=== PATIENT | male | born 1945 | race American Indian/Alaskan Native ===

== ENCOUNTER 2017-11-26 16:24 | Inpatient (IN) | payer MEDICARE, MEDICAID ==
--- NOTE | 2017-11-26 17:18 | C.PDOC ---
History Of Present Illness Patient TYLOR from [place] for evaluation of SOB and hypotension, apparently since approx 8am this morning. Patient admits to SOB, but denies chest pain, cough, fever, palpitations. PMHx- asthma/COPD, CHF, HTN, CVA, BPH Time Seen by Provider: 11/26/17 16:40 Chief Complaint (Nursing): Shortness Of Breath History Per: Patient, EMS, Family History/Exam Limitations: clinical condition Onset/Duration Of Symptoms: Days Current Symptoms Are (Timing): Still Present Current Respiratory Medications: See Home Med List Past Medical History Reviewed: Historical Data, Nursing Documentation, Vital Signs Vital Signs: Last Vital Signs Temp 100.6 F H 12/03/17 00:00 Pulse 57 L 12/03/17 02:00 Resp 16 12/03/17 02:00 BP 90/56 L 12/03/17 01:46 Pulse Ox 98 12/03/17 02:00 - Medical History PMH: Arthritis (neck; r shoulder), Asthma, Benign Prostatic Hyperplasia, CHF, COPD, CVA, HTN - [facility] Procedures BONE MARROW OPS NEC (01/07/14) CONTINUOUS INVASIVE MECHANICAL VENTILATION <96 CONSEC HRS (01/07/14) ENTERAL INFUSION OF CONCENTRATED NUT. SUBSTANCES (03/24/14) ESOPHAGOGASTRODUODENOSCOPY [EGD] W/CLOSED BIOPSY (03/24/14) EXCIS DEBRIDE OF WOUND, INFECT, OR BURN (02/17/14) EXCISE BONE FOR GFT NEC (01/07/14) EXCISION OF JOINT NEC (01/07/14) FUSION/REFUS OF 2-3 VERTEBRAE (01/07/14) INSERT ENDOTRACHEAL TUBE (01/07/14) INSERTION OF INTERBODY SPINAL FUSION DEVICE (01/07/14) OTH CERVICAL FUSION OF ANTERIOR COLUMN, ANTERIOR TECHNIQUE (01/07/14) OTH CERVICAL FUSION OF POSTERIOR COLUMN, POSTERIOR TECHNIQUE (01/07/14) PACKED CELL TRANSFUSION (03/24/14) PERCUTANEOUS [ENDOSCOPIC] GASTROSTOMY [PEG] (02/17/14) VENOUS CATHETERIZATION NEC (02/17/14) Family History: States: No Known Family Hx - Social History Hx Tobacco Use: No Hx Alcohol Use: No Hx Substance Use: No - Immunization History Hx Tetanus Toxoid Vaccination: No Hx Influenza Vaccination: No Hx Pneumococcal Vaccination: No Review Of Systems Except As Marked, All Systems Reviewed And Found Negative. Constitutional: Negative for: Fever, Chills Cardiovascular: Negative for: Chest Pain, Palpitations Respiratory: Positive for: Shortness of Breath. Negative for: Cough Gastrointestinal: Negative for: Nausea, Vomiting, Abdominal Pain, Diarrhea Skin: Negative for: Rash Physical Exam - Physical Exam Appears: Well, In Acute Distress (in mild respiratory distress), Chronically Ill Skin: Warm, Dry Eye(s): bilateral: Normal Inspection Oral Mucosa: Moist Cardiovascular: Rhythm Regular Respiratory: Accessory Muscle Use (mild), Rales (B/L bases), Rhonchi, No Wheezing Gastrointestinal/Abdominal: Normal Exam, Bowel Sounds, Soft, No Tenderness Extremity: Pedal Edema (+2 pitting edema B/L LEs), Other (midline right antecubital area, right posterior calf with approx 6cm chronic wound with mild surrounging erythema, no drainage ) Neurological/Psych: Oriented x3 ED Course And Treatment - Laboratory Results Result Diagrams: 12/02/17 06:32 12/02/17 06:32 ECG: Interpreted By Me, Viewed By Me (NSR 78 bpm, left axis deviation, T wave inversions III, V3-V6, no acute ST changes) ECG Interpretation: Abnormal O2 Sat by Pulse Oximetry: 93 (RA) Pulse Ox Interpretation: Normal - Radiology CXR: Interpreted by Me, Viewed By Me (? left sided infiltrate, pulmonary vascular congestion) Progress Note: Blood work, EKG, CXR, UA ordered and reviewed. CXR shows ? left sided infiltrate, pulmonary vascular congestion. Patient given small IV NS bolus due to mild hypotension. Broad spectrum antibiotics ordered for pneumonia. - Physician Consult Information Physician Contacted: Adrianne Kelsey Outcome Of Conversation: Discussed patient with Dr. Kelsey, agrees with admission for pneumonia, CHF exacerbation, leukocytosis, mild hypotension. Disposition - Disposition Disposition: HOSPITALIZED Disposition Time: 18:39 Condition: STABLE - Clinical Impression Clinical Impression: CHF exacerbation, Pneumonia, Leukocytosis, Mild hypertension Decision To Admit - Pt Status Changed To: Hospital Disposition Of: Inpatient - Admit Certification Admit to Inpatient:: After my assessment, the patient will require hospitalization for at least two midnights. This is because of the severity of symptoms shown, intensity of services needed, and/or the medical risk in this patient being treated as an outpatient. - InPatient: Physician Admission Certification: I certify that this patient requires 2 or more midnights of care for the following reason:: see notes - . Bed Request Type: Telemetry Admitting Physician: Adrianne Kelsey Patient Diagnosis: CHF exacerbation, Pneumonia, Leukocytosis, Mild hypertension
[2017-11-26] MEDS ORDERED: Sodium Chloride 0.9% 500 ML IV ONE ×2 (17:22→17:51)
[2017-11-26 17:36] LABS: BASO % 0.2 % (0.0-2.0); HEMOGLOBIN 13.6 g/dL (12.0-18.0); LYMPH # 0.7 K/uL (1.0-4.3); MEAN CELL VOLUME 85.9 fL (80.0-94.0); MEAN CORPUSCULAR HGB CONC 33.8 g/dL (33.0-37.0); MEAN PLATELET VOLUME 8.7 fL (7.2-11.7); MONO # 2.3 K/uL (0.0-0.8); NEUT # 19.6 K/uL (1.8-7.0); NEUT % 86.8 % (50.0-75.0); NRBC % 0.1 % (0.0-2.0); PLATELET COUNT 142 K/uL (130-400); RBC 4.67 Mil/uL (4.40-5.90); RED CELL DISTRIBUTION WIDTH 16.5 % (11.5-14.5); WHITE BLOOD COUNT 22.6 K/uL (4.8-10.8)
[2017-11-26] MEDS ORDERED: Sodium Chloride 0.9% 500 ML IV STA (17:41)
[2017-11-26 17:44] LABS: INR 1.5; PROTHROMBIN TIME 16.6 SECONDS (9.7-12.2)
[2017-11-26 17:50] LABS: ALB/GLOB RATIO 0.8 (1.0-2.1); ALBUMIN 3.4 g/dL (3.5-5.0); ALT/SGPT 15 U/L (21-72); AST/SGOT 27 U/L (17-59); BLOOD UREA NITROGEN 32 mg/dL (9-20); CALCIUM 8.5 mg/dl (8.6-10.4); GFR AFRICAN-AMERICAN > 60; GFR NON-AFRICAN AMERICAN 50
[2017-11-26] MEDS ORDERED: Cefepime 1 GM in Sodium Chloride 0.9% 50 ML IVPB STA (17:54)
[2017-11-26] MEDS ORDERED: Vancomycin 1 GM 1 GM/250 ML BAG IV STA (17:54)
[2017-11-26] MEDS ORDERED: Moxifloxacin IV 400mg/250ml NS 400 MG/250 ML BAG IV STA (17:55)
[2017-11-26 18:03] LABS: B-TYPE NATRIURETIC PEPTIDE 2090 pg/mL (0-900)
[2017-11-26 18:45] LABS: SQUAMOUS EPITHIAL < 1 /hpf (0-5); URINE AMORPHOUS SEDIMENT RARE /ul (<OCC); URINE BACTERIA RARE (<OCC); URINE BILIRUBIN NEGATIVE (NEGATIVE); URINE BLOOD 1+ (NEGATIVE); URINE CLARITY Hazy (Clear); URINE COLOR Yellow (YELLOW); URINE GLUCOSE (UA) NORMAL (Normal); URINE LEUKOCYTE ESTERASE NEG Leu/uL (Negative); URINE NITRATE NEGATIVE (NEGATIVE); URINE PROTEIN 1+ mg/dL (NEGATIVE)
[2017-11-26 18:59] LABS: ARTERIAL BLOOD GAS HCO3 23.6 mmol/L (21-28); ARTERIAL BLOOD GAS O2 SAT 97.4 % (95-98); ARTERIAL BLOOD GAS PCO2 61 mm/Hg (35-45); ARTERIAL BLOOD GAS PH 7.25 (7.35-7.45); ARTERIAL BLOOD GAS PO2 95 mm/Hg (80-100); ARTERIAL BLOOD GAS TCO2 28.7 mmol/L (22-28)
[2017-11-26] MEDS ORDERED: Vancomycin 1 gm/NS 200 ml 1 GM/200 ML BAG IVPB ONE (19:00)
[2017-11-26 19:04] LABS: BANDS 2 % (0-2); EOSINOPHIL 1 % (0-4); LYMPHOCYTE 2 % (20-40); MONOCYTE 6 % (0-10); NEUTROPHIL 89 % (50-75); TOTAL CELLS COUNTED 100
[2017-11-26 19:05] LABS: ANISOCYTOSIS SLIGHT; PLATELET CLUMPS PRESENT; PLATELET ESTIMATE NORMAL (NORMAL)
[2017-11-26] MEDS ORDERED: Cefepime IV 1 gm in Dextrose 1 GM/50 ML BAG IVPB ONE (20:00)
[2017-11-26] MEDS: Simethicone 80 mg Chewtab PO SCH (22:32)
[2017-11-27] MEDS: Simethicone 80 mg Chewtab PO SCH ×4 (03:41→22:42)
[2017-11-27] MEDS: Meropenem 500 MG in Sodium Chloride 0.9% 100 ML IVPB SCH ×3 (05:58→21:41)
--- NOTE | 2017-11-27 06:32 | RAD ---
Chest x-ray single frontal view History: Shortness of breath. Comparison: 02/19/2014 Findings: Moderate venous congestion. Moderate bibasilar airspace opacities. Small bilateral pleural effusions. More consolidative changes in the left hilar region and right infrahilar region. Right paratracheal airspace opacity. Tortuous ectatic aorta. Mild cardiomegaly. Degenerative changes in the spine and shoulders. Postsurgical changes in the cervical spine. Impression: Moderate venous congestion. Moderate bibasilar airspace opacities. Small bilateral pleural effusions. More consolidative changes in the left hilar region and right infrahilar region. Right paratracheal airspace opacity. Tortuous ectatic aorta. Mild cardiomegaly.
--- NOTE | 2017-11-27 06:51 | RAD ---
Abdomen two views History: Constipation. Comparison: 03/31/2014 Findings: Multiple dilated loops of small bowel seen throughout the abdomen and pelvis. Some air seen within the left hemicolon. Prominent degenerative changes in the spine and hips. Impression: Multiple dilated loops of small bowel seen throughout the abdomen and pelvis which may represent a partial or developing bowel obstruction. Clinical correlation.
[2017-11-27] MEDS ORDERED: Home Med 1 UNIT (Linaclotide [Linzess] 145 MCG) PO SCH (10:00)
[2017-11-27] MEDS ORDERED: PROTEIN SUPPLEMENT PO SCH (10:00)
[2017-11-27] MEDS ORDERED: LINZESS 145MG PO SCH (10:00)
[2017-11-27] MEDS: Enoxaparin 40 mg Syringe SC SCH (10:33)
[2017-11-27] MEDS: Magnesium Hydroxide Susp 30 ml UD PO SCH (10:35)
[2017-11-27 14:32] LABS: BASO % 0.1 % (0.0-2.0); HEMOGLOBIN 12.9 g/dL (12.0-18.0); LYMPH # 0.9 K/uL (1.0-4.3); LYMPH % 5.9 % (20.0-40.0); MEAN CELL VOLUME 86.9 fL (80.0-94.0); MEAN CORPUSCULAR HEMOGLOBIN 28.8 pg (27.0-31.0); MEAN CORPUSCULAR HGB CONC 33.2 g/dL (33.0-37.0); MEAN PLATELET VOLUME 9.4 fL (7.2-11.7); MONO # 1.4 K/uL (0.0-0.8); MONO % 8.9 % (0.0-10.0); NEUT # 13.5 K/uL (1.8-7.0); NEUT % 85.1 % (50.0-75.0); PLATELET COUNT 134 K/uL (130-400); RBC 4.47 Mil/uL (4.40-5.90); RED CELL DISTRIBUTION WIDTH 16.6 % (11.5-14.5); WHITE BLOOD COUNT 15.9 K/uL (4.8-10.8)
[2017-11-27 14:49] LABS: ALB/GLOB RATIO 0.8 (1.0-2.1); ALBUMIN 3.1 g/dL (3.5-5.0); CALCIUM 7.8 mg/dl (8.6-10.4)
[2017-11-27 15:08] LABS: BANDS 1 % (0-2); LYMPHOCYTE 6 % (20-40); MONOCYTE 8 % (0-10); NEUTROPHIL 85 % (50-75); PLATELET ESTIMATE NORMAL (NORMAL); TOTAL CELLS COUNTED 100
[2017-11-27 15:09] LABS: ANISOCYTOSIS SLIGHT; HYPOCHROMIC SLIGHT; POLYCHROMIC SLIGHT
[2017-11-27 15:10] LABS: LARGE PLATELETS PRESENT
[2017-11-27] MEDS: Vancomycin 1 gm/NS 200 ml 1 GM/200 ML BAG IVPB SCH (22:43)
[2017-11-28] MEDS: Simethicone 80 mg Chewtab PO SCH ×4 (03:25→22:19)
[2017-11-28] MEDS: Meropenem 500 MG in Sodium Chloride 0.9% 100 ML IVPB SCH ×3 (05:12→21:12)
[2017-11-28] MEDS: Enoxaparin 40 mg Syringe SC SCH (10:16)
[2017-11-28] MEDS: Magnesium Hydroxide Susp 30 ml UD PO SCH (10:36)
--- NOTE | 2017-11-28 16:31 | CP.PCM.CON ---
History of Present Illness - History of Present Illness History of Present Illness: Patient T[place] from [place] for evaluation of SOB and hypotension, apparently since approx 8am this morning. Patient admits to SOB, but denies chest pain, cough, fever, palpitations. admitted with resp failure sepsis and pneumonia awake alert aphasic bedridden sice stroke Hx multiple wounds IV rx in progress - Medical History PMH: Arthritis (neck; r shoulder), Asthma, Benign Prostatic Hyperplasia, CHF, COPD, CVA, HTN - [facility] Procedures BONE MARROW OPS NEC (01/07/14) CONTINUOUS INVASIVE MECHANICAL VENTILATION <96 CONSEC HRS (01/07/14) ENTERAL INFUSION OF CONCENTRATED NUT. SUBSTANCES (03/24/14) ESOPHAGOGASTRODUODENOSCOPY [EGD] W/CLOSED BIOPSY (03/24/14) EXCIS DEBRIDE OF WOUND, INFECT, OR BURN (02/17/14) EXCISE BONE FOR GFT NEC (01/07/14) EXCISION OF JOINT NEC (01/07/14) FUSION/REFUS OF 2-3 VERTEBRAE (01/07/14) INSERT ENDOTRACHEAL TUBE (01/07/14) INSERTION OF INTERBODY SPINAL FUSION DEVICE (01/07/14) OTH CERVICAL FUSION OF ANTERIOR COLUMN, ANTERIOR TECHNIQUE (01/07/14) OTH CERVICAL FUSION OF POSTERIOR COLUMN, POSTERIOR TECHNIQUE (01/07/14) PACKED CELL TRANSFUSION (03/24/14) PERCUTANEOUS [ENDOSCOPIC] GASTROSTOMY [PEG] (02/17/14) VENOUS CATHETERIZATION NEC (02/17/14) Family History: States: No Known Family Hx Review of Systems - Review of Systems Systems not reviewed;Unavailable: Altered Mental Status All systems: reviewed and no additional remarkable complaints except - Constitutional Constitutional: As Per HPI - EENT Eyes: absent: As Per HPI, Blind Spots, Blurred Vision, Change in Vision, Decreased Night Vision, Diplopia, Discharge, Dry Eye, Exophthalmos, Floaters, Irritation, Itchy Eyes, Loss of Peripheral Vision, Pain, Photophobia, Requires Corrective Lenses, Sees Flashes, Spots in Vision, Tunnel Vision, Other Visual Disturbances, Loss of Vision, Other Ears: absent: As Per HPI, Decreased Hearing, Ear Discharge, Ear Pain, Tinnitus, Abnormal Hearing, Disequilibrium, Dizziness, Other Nose/Mouth/Throat: absent: As Per HPI, Epistaxis, Nasal Congestion, Nasal Discharge, Nasal Obstruction, Nasal Trauma, Nose Pain, Post Nasal Drip, Sinus Pain, Sinus Pressure, Bleeding Gums, Change in Voice, Dental Pain, Dry Mouth, Dysphagia, Halitosis, Hoarsness, Lip Swelling, Mouth Lesions, Mouth Pain, Odynophagia, Sore Throat, Throat Swelling, Tongue Swelling, Facial Pain, Neck Pain, Neck Mass, Other - Cardiovascular Cardiovascular: As Per HPI - Respiratory Respiratory: As Per HPI - Gastrointestinal Gastrointestinal: absent: As Per HPI, Abdominal Pain, Belching, Bloating, Change in Bowel Habits, Change in Stool Character, Coffee Ground Emesis, Constipation, Cramping, Diarrhea, Dyspepsia, Dysphagia, Early Satiety, Excessive Flatus, Fecal Incontinence, Heartburn, Hematemesis, Hematochezia, Loose Stools, Melena, Nausea, Odynophagia, Temesmus, Vomiting, Other - Genitourinary Genitourinary: absent: As Per HPI, Change in Urinary Stream, Difficulty Urinating, Dysuria, Flank Pain, Hematuria, Pyuria, Nocturia, Urinary Incontinence, Urinary Frequency, Urinary Hesitance, Urinary Urgency, Voiding Freq/Small Amts, Freq UTI, Hx Renal/Bladder Calculi, Hx /Renal Surgery, Bladder Distension, Other - Musculoskeletal Musculoskeletal: As Per HPI - Integumentary Integumentary: As Per HPI, Skin Pain, Wounds - Neurological Neurological: As Per HPI - Psychiatric Psychiatric: absent: As Per HPI, Abnormal Sleep Pattern, Anhedonia, Anxiety, Auditory Hallucinations, Behavioral Changes, Change in Appetite, Change in Libido, Confusion, Depression, Difficulty Concentrating, Hallucinations, Homicidal Ideation, Hopelessness, Irritability, Memory Loss, Mood Swings, Panic Attacks, Paranoia, Suicidal Ideation, Visual Hallucinations, Tactile Hallucinations, Other - Endocrine Endocrine: absent: As Per HPI, Change in Body Appearance, Change in Libido, Cold Intolorance, Deepening of Voice, Excessive Sweating, Fatigue, Flushing, Heat Intolorance, Increase in Ring/Shoe/Hat Size, Palpitations, Polydipsia, Polyphagia, Polyuria, Other Past Patient History - Past Medical History & Family History Past Medical History?: Yes - Past Social History Smoking Status: Former Smoker - CARDIAC Hx Congestive Heart Failure: Yes Hx Hypertension: Yes - PULMONARY Hx Asthma: Yes Hx Chronic Obstructive Pulmonary Disease (COPD): Yes - NEUROLOGICAL HX Cerebrovascular Accident: Yes (left hemiparesis) - HEENT Hx Difficulty Chewing: Yes - RENAL Hx Renal Failure: Yes (renal insufficiency) Other/Comment: urine retention - MUSCULOSKELETAL/RHEUMATOLOGICAL Hx Falls: No - GASTROINTESTINAL Hx Clostridium Difficile: Yes Other/Comment: PEG - GENITOURINARY/GYNECOLOGICAL Hx Incontinence: Yes Hx Prostate Problems: Yes - PSYCHIATRIC Hx Substance Use: No - SURGICAL HISTORY Hx Herniorrhaphy: Yes Other/Comment: Laminectomy - ANESTHESIA Hx Anesthesia: Yes Hx Anesthesia Reactions: No Meds Allergies/Adverse Reactions: Allergies Allergy/AdvReac Type Severity Reaction Status Date / Time aspirin Allergy Verified 11/26/17 17:20 ketorolac [From Toradol] Allergy Verified 11/26/17 17:20 NSAIDS (Non-Steroidal Allergy Verified 11/26/17 17:20 Anti-Inflamma - Medications Medications: Current Medications Enoxaparin Sodium (Lovenox) 40 mg SC DAILY [facility] Last Admin: 11/28/17 10:16 Dose: 40 mg Famotidine (Pepcid) 20 mg PO DAILY [facility] Last Admin: 11/28/17 10:17 Dose: 20 mg Home Med (Patient's Own Medication) 1 tab PO DAILY [facility] Meropenem 500 mg/ Sodium (Chloride) 100 mls @ 100 mls/hr IVPB Q8 [facility] Stop: 11/30/17 06:01 Last Admin: 11/28/17 13:43 Dose: 100 mls/hr Vancomycin/Sodium Chloride (Vancomycin 1 Gm/Ns 200 Ml) 1 gm in 200 mls @ 133 mls/hr IVPB Q24H [facility] Stop: 11/29/17 23:31 Last Admin: 11/27/17 22:43 Dose: 133 mls/hr Magnesium Hydroxide (Milk Of Magnesia) 30 ml PO DAILY [facility] Last Admin: 11/28/17 10:36 Dose: Not Given Metoclopramide HCl (Reglan) 10 mg PO BID [facility] Last Admin: 11/28/17 10:17 Dose: 10 mg Pneumococcal Polyvalent Vaccine (Pneumovax 23 Vaccine) 0.5 ml IM .ONCE ONE Stop: 12/02/17 10:01 Simethicone (Mylicon Chew Tab) 80 mg PO Q6H [facility] Last Admin: 11/28/17 10:00 Dose: 80 mg Tamsulosin HCl (Flomax) 0.4 mg PO DAILY [facility] Last Admin: 11/28/17 10:17 Dose: 0.4 mg Physical Exam - Constitutional Appears: Confused, Chronically Ill - Head Exam Head Exam: ATRAUMATIC, NORMAL INSPECTION, NORMOCEPHALIC - Eye Exam Eye Exam: EOMI, PERRL. absent: Scleral icterus - ENT Exam ENT Exam: Mucous Membranes Dry, Normal External Ear Exam - Neck Exam Neck exam: Negative for: Lymphadenopathy - Respiratory Exam Respiratory Exam: Decreased Breath Sounds, Rhonchi - Cardiovascular Exam Cardiovascular Exam: REGULAR RHYTHM, +S1, +S2 - GI/Abdominal Exam GI & Abdominal Exam: Diminished Bowel Sounds, Distended, Soft. absent: Rebound , Rigid, Tenderness - Rectal Exam Rectal Exam: Deferred - Exam Exam: NORMAL INSPECTION - Extremities Exam Extremities exam: Positive for: pedal pulses present. Negative for: calf tenderness, pedal edema, tenderness - Back Exam Back exam: absent: CVA tenderness (L), CVA tenderness (R), paraspinal tenderness - Neurological Exam Neurological exam: Alert, CN II-XII Intact, Oriented x3, Reflexes Normal - Psychiatric Exam Psychiatric exam: Depressed - Skin Skin Exam: Dry Results - Vital Signs Recent Vital Signs: Last Vital Signs Temp 98.4 F 11/28/17 07:55 Pulse 72 11/28/17 07:55 Resp 20 11/28/17 07:55 BP 95/61 L 11/28/17 07:55 Pulse Ox 95 11/28/17 07:55 - Labs Result Diagrams: 11/27/17 14:14 11/27/17 14:14 Assessment & Plan (1) Acute urinary retention Status: Acute (2) Fever Status: Acute (3) Sepsis associated hypotension Status: Acute - Assessment and Plan (Free Text) Plan: sepsis, pneumonia, resp failure cont iv antibiotics wound care nutritional support
[2017-11-28] MEDS: Vancomycin 1 gm/NS 200 ml 1 GM/200 ML BAG IVPB SCH (22:18)
[2017-11-29] MEDS: Simethicone 80 mg Chewtab PO SCH ×4 (03:12→22:12)
[2017-11-29] MEDS: Meropenem 500 MG in Sodium Chloride 0.9% 100 ML IVPB SCH ×3 (05:14→22:00)
[2017-11-29 07:52] LABS: BASO % 0.1 % (0.0-2.0); HEMOGLOBIN 12.2 g/dL (12.0-18.0); LYMPH % 7.2 % (20.0-40.0); MEAN CELL VOLUME 85.3 fL (80.0-94.0); MEAN CORPUSCULAR HGB CONC 33.9 g/dL (33.0-37.0); MEAN PLATELET VOLUME 8.8 fL (7.2-11.7); MONO # 1.4 K/uL (0.0-0.8); MONO % 10.2 % (0.0-10.0); NEUT # 11.2 K/uL (1.8-7.0); NEUT % 82.5 % (50.0-75.0); PLATELET COUNT 156 K/uL (130-400); RED CELL DISTRIBUTION WIDTH 16.2 % (11.5-14.5); WHITE BLOOD COUNT 13.5 K/uL (4.8-10.8)
[2017-11-29 08:45] LABS: ALB/GLOB RATIO 0.8 (1.0-2.1); ALBUMIN 2.9 g/dL (3.5-5.0); ALT/SGPT 24 U/L (21-72); AST/SGOT 22 U/L (17-59); BLOOD UREA NITROGEN 34 mg/dL (9-20); CALCIUM 7.9 mg/dl (8.6-10.4); GFR AFRICAN-AMERICAN > 60; GFR NON-AFRICAN AMERICAN 54; MAGNESIUM 2.9 mg/dL (1.6-2.3)
--- NOTE | 2017-11-29 09:24 | HP ---
HISTORY OF PRESENT ILLNESS: This is 72-year-old male, now with chief complaint of shortness of breath, feeling weak, fatigue and tiredness. Patient came to the ER, advised admission. Patient has a history of spinal issues. Patient had been in a prison. Came to the ER, evaluated, advised admission. PHYSICAL EXAMINATION: GENERAL: The patient is awake, alert, oriented. VITAL SIGNS: Temperature 99, pulse 90. HEENT: Within normal limits. NECK: Supple. CHEST: Symmetrical. HEART: Regular. ABDOMEN: Soft. EXTREMITIES: No edema. ASSESSMENT: Patient suffers from pneumonia, sepsis. PLAN: Patient given IV antibiotics, supportive care. Adrianne Stanley MD
[2017-11-29] MEDS: Magnesium Hydroxide Susp 30 ml UD PO SCH (09:42)
[2017-11-29] MEDS: Enoxaparin 40 mg Syringe SC SCH (09:42)
[2017-11-29 09:56] LABS: ANISOCYTOSIS SLIGHT; LYMPHOCYTE 4 % (20-40); MONOCYTE 6 % (0-10); NEUTROPHIL 90 % (50-75); PLATELET ESTIMATE NORMAL (NORMAL); TOTAL CELLS COUNTED 100
--- NOTE | 2017-11-29 13:04 | CP.PCM.PN ---
Subjective - Date & Time of Evaluation Date of Evaluation: 11/29/17 Time of Evaluation: 07:00 - Subjective Subjective: awake alert nad on bipap Objective - Vital Signs/Intake and Output Vital Signs (last 24 hours): Temp Pulse Resp BP Pulse Ox 99.0 F 36 L 20 131/84 96 11/29/17 08:30 11/29/17 10:05 11/29/17 08:30 11/29/17 08:30 11/29/17 08:30 Intake and Output: 11/29/17 11/29/17 06:59 18:59 Intake Total 720 Output Total 1200 Balance -480 - Medications Medications: Current Medications Enoxaparin Sodium (Lovenox) 40 mg SC DAILY [facility] Last Admin: 11/29/17 09:42 Dose: 40 mg Famotidine (Pepcid) 20 mg PO DAILY [facility] [place] Last Admin: 11/29/17 09:43 Dose: 20 mg Home Med (Patient's Own Medication) 1 tab PO DAILY [facility] [place] Meropenem 500 mg/ Sodium (Chloride) 100 mls @ 100 mls/hr IVPB Q8 [facility] [place] Stop: 11/30/17 06:01 Last Admin: 11/29/17 05:14 Dose: 100 mls/hr Vancomycin/Sodium Chloride (Vancomycin 1 Gm/Ns 200 Ml) 1 gm in 200 mls @ 133 mls/hr IVPB Q24H [facility] [place] Stop: 11/29/17 23:31 Last Admin: 11/28/17 22:18 Dose: 133 mls/hr Magnesium Hydroxide (Milk Of Magnesia) 30 ml PO DAILY [facility] [place] Last Admin: 11/29/17 09:42 Dose: 30 ml Metoclopramide HCl (Reglan) 10 mg PO BID [facility] [place] Last Admin: 11/29/17 09:43 Dose: 10 mg Pneumococcal Polyvalent Vaccine (Pneumovax 23 Vaccine) 0.5 ml IM .ONCE ONE Stop: 12/02/17 10:01 Simethicone (Mylicon Chew Tab) 80 mg PO Q6H [facility] [place] Last Admin: 11/29/17 09:43 Dose: 80 mg Tamsulosin HCl (Flomax) 0.4 mg PO DAILY [facility] [place] Last Admin: 11/29/17 09:43 Dose: 0.4 mg - Labs Labs: 11/29/17 07:30 11/29/17 07:30 PT 16.6 SECONDS (9.7-12.2) H 11/26/17 17:31 INR 1.5 11/26/17 17:31 APTT 31 SECONDS (21-34) 11/26/17 17:31 - Constitutional Appears: Non-toxic, Confused, Chronically Ill - Head Exam Head Exam: NORMOCEPHALIC - Eye Exam Eye Exam: PERRL. absent: Scleral icterus - ENT Exam ENT Exam: Mucous Membranes Dry - Neck Exam Neck Exam: absent: Lymphadenopathy - Respiratory Exam Respiratory Exam: Decreased Breath Sounds - Cardiovascular Exam Cardiovascular Exam: REGULAR RHYTHM - GI/Abdominal Exam GI & Abdominal Exam: Distended, Soft Assessment and Plan (1) Acute urinary retention Status: Acute (2) Fever Status: Acute (3) Sepsis associated hypotension Status: Acute
--- NOTE | 2017-11-29 14:27 | CP.PCM.PN ---
Subjective - Date & Time of Evaluation Date of Evaluation: 11/29/17 Time of Evaluation: 08:00 - Subjective Subjective: PGY2 medicine note for Dr. Stanley: Patient was seen and examined at bedside this morning. Patient was on BIPAP. He was able to deny pain and stated he was short of breath. He said that he would rather be on NC but per nursing the patient desaturating on NC while trying to eat breakfast. Complete ROS unattainable. Objective - Vital Signs/Intake and Output Vital Signs (last 24 hours): Temp Pulse Resp BP Pulse Ox 99.0 F 36 L 20 131/84 96 11/29/17 08:30 11/29/17 10:05 11/29/17 08:30 11/29/17 08:30 11/29/17 08:30 Intake and Output: 11/29/17 11/29/17 06:59 18:59 Intake Total 720 Output Total 1200 Balance -480 - Medications Medications: Current Medications Enoxaparin Sodium (Lovenox) 40 mg SC DAILY [facility] Last Admin: 11/29/17 09:42 Dose: 40 mg Famotidine (Pepcid) 20 mg PO DAILY [facility] Last Admin: 11/29/17 09:43 Dose: 20 mg Home Med (Patient's Own Medication) 1 tab PO DAILY [facility] Meropenem 500 mg/ Sodium (Chloride) 100 mls @ 100 mls/hr IVPB Q8 [facility] Stop: 11/30/17 06:01 Last Admin: 11/29/17 13:52 Dose: 100 mls/hr Vancomycin/Sodium Chloride (Vancomycin 1 Gm/Ns 200 Ml) 1 gm in 200 mls @ 133 mls/hr IVPB Q24H [facility] Stop: 11/29/17 23:31 Last Admin: 11/28/17 22:18 Dose: 133 mls/hr Magnesium Hydroxide (Milk Of Magnesia) 30 ml PO DAILY [facility] Last Admin: 11/29/17 09:42 Dose: 30 ml Metoclopramide HCl (Reglan) 10 mg PO BID [facility] Last Admin: 11/29/17 09:43 Dose: 10 mg Pneumococcal Polyvalent Vaccine (Pneumovax 23 Vaccine) 0.5 ml IM .ONCE ONE Stop: 12/02/17 10:01 Simethicone (Mylicon Chew Tab) 80 mg PO Q6H [facility] Last Admin: 11/29/17 09:43 Dose: 80 mg Tamsulosin HCl (Flomax) 0.4 mg PO DAILY [facility] Last Admin: 11/29/17 09:43 Dose: 0.4 mg - Labs Labs: 11/29/17 07:30 11/29/17 07:30 PT 16.6 SECONDS (9.7-12.2) H 11/26/17 17:31 INR 1.5 11/26/17 17:31 APTT 31 SECONDS (21-34) 11/26/17 17:31 Assessment and Plan - Assessment and Plan (Free Text) Assessment: Sepsis Afebrile WBC downtrending f/u Chest CT Meropenem 500mg IVPB Q8 Vancomycin 1gram IVPH Q24 hours Dr. Becerril, ID on case - help appreciated Urine cx 11/26 - no growth Blood cx 11/26 - no growth 48 hours Lactate 0.8 on admission Chest X ray - moderate venous congestion. moderate bibasilar airspace opacities. small bilateral pleural effusion. consolidate changes left hilar region and righ infrahilar region. Right paratracheal airspace opacity. mild cardiomegaly EKG - NSR 78 bpm, left axis deviation, T wave inversions III, V3-V6, no acute ST changes) f/u echo f/u legionella, streppneumo, mycoplasma f/u am labs COPD Patient is on bipap for suspected pneumonia Duonebs prn Influenza - negative Hx CVA Patient is allergic to aspirin Chronic extremity wounds Wound care patient is bedridden Arthritis Tylenol prn BPH Flomax 0.4mg PO daily Constipation [id number] SC Q6 hours keeley Milk of magnesia 30ml PO daily on Linzess at home Prophylactic Measures Lovenox 40mg SC daily Pepcid 20mg PO daily Reglan 10mg PO BID PT/OT - patient is bedridden All management per Dr. Stanley.
[2017-11-29] MEDS ORDERED: Albuterol-Ipratrop 3 mg / 0.5 (3 ml) UD INH PRN (14:47)
--- NOTE | 2017-11-29 16:02 | CT ---
PROCEDURE: CT chest dated 11/29/2017 HISTORY: Rule out pneumonia, sepsis requiring bipap COMPARISON: Comparison made with chest radiograph dated 11/26/2017. Study is technically limited and further degraded by streak and beam hardening artifact arising from the upper extremities which have not been moved out of the field of view. TECHNIQUE: Contiguous helical/transaxial images were obtained through the chest without intravenous contrast enhancement. Sagittal and coronal reconstructions were performed. Radiation dose (DLP): 378.6 mGy-cm. This CT exam was performed using one or more of the following dose reduction techniques: Automated exposure control, adjustment of the mA and/or kV according to patient size, and/or use of iterative reconstruction technique. FINDINGS: LUNGS: Moderately large right-sided effusion with moderate atelectasis with air bronchograms. Superimposed pneumonia cannot be completely excluded. . Small left-sided effusion and mild left basilar atelectasis. Underlying emphysematous changes upper lobes. MEDIASTINUM: Heart is mildly enlarged. No significant pericardial effusion. The descending thoracic aorta measures approximately 2.5 cm and descending thoracic aorta measures approximately 0.86 cm. Pulmonary trunk measures approximately 4.1 cm; rule out underlying pulmonary arterial hypertension. There are a few small nonspecific mediastinal lymph nodes - prevascular lymph nodes. Evaluation for hilar adenopathy is limited due to the lack of circulating intravenous contrast material. Central airways are midline and patent. No obvious large central endoluminal lesions. . Small hiatal hernia. PLEURA: Pleural effusions as above. No evidence of pneumothorax BONES: Re- demonstrated is the inferior aspect of the multilevel ACDF plate attached to the lower anterior cervical segments. Minor multilevel degenerative spondylosis of the thoracic spine. UPPER ABDOMEN: Upper abdomen appears grossly unremarkable so far as can be seen however note that significant streak and beam hardening artifact obscures fine detail. OTHER FINDINGS: None. IMPRESSION: Moderately large right-sided effusion and with moderate right atelectasis which exhibit air bronchograms appears superimposed pneumonia not excluded. Small left effusion and mild left basilar demonstrating. Emphysematous changes upper lobes. .
[2017-11-29] MEDS: Vancomycin 1 gm/NS 200 ml 1 GM/200 ML BAG IVPB SCH (23:12)
[2017-11-30] MEDS: Simethicone 80 mg Chewtab PO SCH ×4 (03:46→21:38)
[2017-11-30] MEDS: Meropenem 500 MG in Sodium Chloride 0.9% 100 ML IVPB SCH (06:21)
[2017-11-30 08:43] LABS: ALB/GLOB RATIO 0.8 (1.0-2.1); ALT/SGPT 23 U/L (21-72); AST/SGOT 21 U/L (17-59); BLOOD UREA NITROGEN 32 mg/dL (9-20); CALCIUM 8.1 mg/dl (8.6-10.4); GFR AFRICAN-AMERICAN > 60; GFR NON-AFRICAN AMERICAN 60
--- NOTE | 2017-11-30 08:45 | PN ---
DATE: Patient is improving with good response to antibiotics and supportive care. Adrianne Stanley MD [facility] # [phone]
[2017-11-30 08:47] LABS: BASO # 0.1 K/uL (0.0-0.2); BASO % 0.3 % (0.0-2.0); EOS % 0.2 % (0.0-4.0); HEMOGLOBIN 12.9 g/dL (12.0-18.0); LYMPH # 1.2 K/uL (1.0-4.3); LYMPH % 7.3 % (20.0-40.0); MEAN CELL VOLUME 86.7 fL (80.0-94.0); MEAN CORPUSCULAR HEMOGLOBIN 29.1 pg (27.0-31.0); MEAN CORPUSCULAR HGB CONC 33.6 g/dL (33.0-37.0); MEAN PLATELET VOLUME 8.7 fL (7.2-11.7); MONO # 1.6 K/uL (0.0-0.8); MONO % 10.2 % (0.0-10.0); NEUT # 13.3 K/uL (1.8-7.0); NRBC % 0.1 % (0.0-2.0); PLATELET COUNT 139 K/uL (130-400); RBC 4.42 Mil/uL (4.40-5.90); RED CELL DISTRIBUTION WIDTH 16.8 % (11.5-14.5); WHITE BLOOD COUNT 16.2 K/uL (4.8-10.8)
[2017-11-30 09:56] LABS: LEGIONELLA AG URINE NEGATIVE (NEGATIVE)
[2017-11-30 10:14] LABS: BANDS 1 % (0-2); LYMPHOCYTE 10 % (20-40); MONOCYTE 4 % (0-10); NEUTROPHIL 85 % (50-75); TOTAL CELLS COUNTED 100
[2017-11-30 10:15] LABS: STREP PNEUMONIAE NEGATIVE (NEGATIVE)
[2017-11-30 10:15] LABS: PLATELET ESTIMATE NORMAL (NORMAL)
[2017-11-30 10:16] LABS: ANISOCYTOSIS SLIGHT; HYPOCHROMIC SLIGHT; POLYCHROMIC SLIGHT; TARGET CELLS SLIGHT
[2017-11-30 10:28] LABS: MYCOPLASMA PNEUMONIAE IGM NEGATIVE (NEGATIVE)
--- NOTE | 2017-11-30 11:11 | PCM.IRP ---
History of Present Illness - History of Present Illness History of Present Illness: IR requested to perform right thoracentesis. Mr. Marin was brought to the IR department. Limited US of pt's right chest showed scant fluid, insufficient for thoracentesis. Objective - Vital Signs/Intake and Output Vital Signs (last 24 hours): Vital Signs - 24 hr 11/29/17 11/29/17 11/29/17 16:00 18:42 23:48 Temperature 99 F 98.8 F Pulse Rate 73 63 101 H Respiratory 24 20 Rate Blood Pressure 105/66 142/72 O2 Sat by Pulse 95 96 Oximetry 11/30/17 11/30/17 11/30/17 00:27 05:34 08:05 Temperature 98.2 F Pulse Rate 72 100 H 69 Respiratory 20 Rate Blood Pressure 116/65 O2 Sat by Pulse 96 Oximetry 11/30/17 08:19 Temperature Pulse Rate 69 Respiratory Rate Blood Pressure O2 Sat by Pulse Oximetry Intake and Output (last 12 hours): Intake & Output 11/29/17 11/30/17 11/30/17 18:59 06:59 18:59 Intake Total 200 Output Total 250 Balance -50 Intake: Oral 200 Output: Urine 250 Condom 250 Other: # Bowel Movements 1 - Medications Medications: Current Medications Albuterol/Ipratropium (Duoneb 3 Mg/0.5 Mg (3 Ml) Ud) 3 ml INH RQ6 PRN PRN Reason: Shortness of Breath Enoxaparin Sodium (Lovenox) 40 mg SC DAILY [facility] Last Admin: 11/29/17 09:42 Dose: 40 mg Famotidine (Pepcid) 20 mg PO DAILY [facility] Last Admin: 11/29/17 09:43 Dose: 20 mg Magnesium Hydroxide (Milk Of Magnesia) 30 ml PO DAILY [facility] Last Admin: 11/29/17 09:42 Dose: 30 ml Metoclopramide HCl (Reglan) 10 mg PO BID [facility] Last Admin: 11/29/17 18:08 Dose: 10 mg Pneumococcal Polyvalent Vaccine (Pneumovax 23 Vaccine) 0.5 ml IM .ONCE ONE Stop: 12/02/17 10:01 Simethicone (Mylicon Chew Tab) 80 mg PO Q6H [facility] Last Admin: 11/30/17 03:46 Dose: Not Given Tamsulosin HCl (Flomax) 0.4 mg PO DAILY [facility] Last Admin: 11/29/17 09:43 Dose: 0.4 mg - Labs Labs (last 24 hours): Laboratory Results - last 24 hr 11/29/17 11/30/17 11/30/17 Unknown 08:13 08:13 WBC 16.2 H RBC 4.42 Hgb 12.9 Hct 38.3 MCV 86.7 MCH 29.1 MCHC 33.6 RDW 16.8 H Plt Count 139 MPV 8.7 Neut % (Auto) 82.0 H Lymph % (Auto) 7.3 L [place] % (Auto) 10.2 H Eos % (Auto) 0.2 Baso % (Auto) 0.3 Neut # 13.3 H Lymph # 1.2 [place] # 1.6 H Eos # 0.0 Baso # 0.1 Neutrophils % (Manual) 85 H Band Neutrophils % 1 Lymphocytes % (Manual) 10 L Monocytes % (Manual) 4 Platelet Estimate Normal Polychromasia Slight Hypochromasia (manual) Slight Anisocytosis (manual) Slight Target Cells Slight Sodium Potassium Chloride Carbon Dioxide Anion Gap BUN Creatinine Est GFR ( Amer) Est GFR (Non-Af Amer) Random Glucose Calcium Phosphorus Magnesium Total Bilirubin AST ALT Alkaline Phosphatase Total Protein Albumin Globulin Albumin/Globulin Ratio Procalcitonin 2.60 H Ur L.pneumophila Ag Negative Mycoplasma pneumon IgM Negative S. pneumoniae Antigen 11/30/17 11/30/17 08:13 Unknown WBC RBC Hgb Hct MCV MCH MCHC RDW Plt Count MPV Neut % (Auto) Lymph % (Auto) [place] % (Auto) Eos % (Auto) Baso % (Auto) Neut # Lymph # [place] # Eos # Baso # Neutrophils % (Manual) Band Neutrophils % Lymphocytes % (Manual) Monocytes % (Manual) Platelet Estimate Polychromasia Hypochromasia (manual) Anisocytosis (manual) Target Cells Sodium 138 Potassium 4.8 Chloride 104 Carbon Dioxide 33 H Anion Gap 6 L BUN 32 H Creatinine 1.2 Est GFR ( Amer) > 60 Est GFR (Non-Af Amer) 60 Random Glucose 125 H Calcium 8.1 L Phosphorus 3.4 Magnesium 3.0 H Total Bilirubin 0.5 AST 21 ALT 23 Alkaline Phosphatase 84 Total Protein 6.8 Albumin 3.0 L Globulin 3.8 Albumin/Globulin Ratio 0.8 L Procalcitonin Ur L.pneumophila Ag Mycoplasma pneumon IgM S. pneumoniae Antigen Negative
--- NOTE | 2017-11-30 11:19 | US ---
PROCEDURE: HISTORY: PL EFF RT COMPARISON: TECHNIQUE: Limited ultrasound right chest was performed for purposes of thoracentesis. FINDINGS: Patient is placed in the left kidney is position and ultrasound patient's right back showed a very small amount of pleural fluid. The amount of fluid is insufficient for safe thoracentesis. IMPRESSION: A very small amount of right pleural effusion. There is not sufficient fluid for safe right thoracentesis.
--- NOTE | 2017-11-30 11:28 | CP.PCM.PN ---
Subjective - Date & Time of Evaluation Date of Evaluation: 11/30/17 Time of Evaluation: 10:26 - Subjective Subjective: PGY 2 Progress Note- Dr. Stanley's service Patient seen and examined . Per nursing, patient appears more lethargic today in comparison to the weekend. Patient with BiPAP in place. Patient was to go for thoracentesis however IR noted limited fluid in the right region and thus the procedure was canceled. Patient able to nod head no to an ROS. He denies chest pain or palpitations at this time. Objective - Vital Signs/Intake and Output Vital Signs (last 24 hours): Temp Pulse Resp BP Pulse Ox 98.2 F 69 20 116/65 96 11/30/17 08:05 11/30/17 08:19 11/30/17 08:05 11/30/17 08:05 11/30/17 08:05 Intake and Output: 11/30/17 11/30/17 06:59 18:59 Intake Total 200 Output Total 250 Balance -50 - Medications Medications: Current Medications Albuterol/Ipratropium (Duoneb 3 Mg/0.5 Mg (3 Ml) Ud) 3 ml INH RQ6 PRN PRN Reason: Shortness of Breath Enoxaparin Sodium (Lovenox) 40 mg SC DAILY [facility] Last Admin: 11/29/17 09:42 Dose: 40 mg Famotidine (Pepcid) 20 mg PO DAILY [facility] Last Admin: 11/29/17 09:43 Dose: 20 mg Magnesium Hydroxide (Milk Of Magnesia) 30 ml PO DAILY [facility] Last Admin: 11/29/17 09:42 Dose: 30 ml Metoclopramide HCl (Reglan) 10 mg PO BID [facility] Last Admin: 11/29/17 18:08 Dose: 10 mg Pneumococcal Polyvalent Vaccine (Pneumovax 23 Vaccine) 0.5 ml IM .ONCE ONE Stop: 12/02/17 10:01 Simethicone (Mylicon Chew Tab) 80 mg PO Q6H [facility] Last Admin: 11/30/17 03:46 Dose: Not Given Tamsulosin HCl (Flomax) 0.4 mg PO DAILY [facility] Last Admin: 11/29/17 09:43 Dose: 0.4 mg - Labs Labs: 11/30/17 08:13 11/30/17 08:13 PT 16.6 SECONDS (9.7-12.2) H 11/26/17 17:31 INR 1.5 11/26/17 17:31 APTT 31 SECONDS (21-34) 11/26/17 17:31 - Constitutional Appears: Non-toxic, No Acute Distress, Other (lethargic) - Head Exam Head Exam: ATRAUMATIC, NORMAL INSPECTION - Eye Exam Eye Exam: Normal appearance - ENT Exam ENT Exam: Mucous Membranes Moist - Neck Exam Neck Exam: Full ROM - Respiratory Exam Respiratory Exam: NORMAL BREATHING PATTERN - Cardiovascular Exam Cardiovascular Exam: +S1, +S2 - GI/Abdominal Exam GI & Abdominal Exam: Soft - Extremities Exam Extremities Exam: Full ROM, Normal Capillary Refill Additional comments: smooth, shiny extremities; contracted phalanges bilaterally - Back Exam Back Exam: Full ROM - Neurological Exam Neurological Exam: Alert, Awake, Oriented x3 - Psychiatric Exam Psychiatric exam: Normal Affect, Normal Mood - Skin Skin Exam: Dry, Normal Color, Warm Assessment and Plan - Assessment and Plan (Free Text) Assessment: Sepsis Afebrile ; WBC mildly elevated Chest CT- Moderate large right effusion with moderate right atelectasis with air bronchograms noted; left effusion . Refer to complete report. Meropenem 500mg IVPB Q8 Vancomycin 1gram IVPH Q24 hours Dr. Becerril, ID on case - F/U recommendations Urine cx 11/26 - no growth Blood cx 11/26 - no growth 48 hours Lactate 0.8 on admission Chest X ray - moderate venous congestion. moderate bibasilar airspace opacities. small bilateral pleural effusion. consolidate changes left hilar region and righ infrahilar region. Right paratracheal airspace opacity. mild cardiomegaly EKG - NSR 78 bpm, left axis deviation, T wave inversions III, V3-V6, no acute ST changes) f/u echo Legionella, strep pneumo, mycoplasma- All negative F/U am labs Effusion IR consulted but not enough fluid to tap. Considerations for Pulm consult COPD Patient is on bipap for suspected pneumonia Duonebs prn Influenza - negative Hx CVA Patient is allergic to aspirin Chronic extremity wounds Wound care patient is bedridden Arthritis Tylenol prn BPH Flomax 0.4mg PO daily Constipation [id number] SC Q6 hours keeley Milk of magnesia 30ml PO daily on Linzess at home Lethargy Avoid medications that may be sedating Prophylactic Measures Lovenox 40mg SC daily Pepcid 20mg PO daily Reglan 10mg PO BID PT/OT - patient is bedridden Discussed with attending. All management per Dr. Stanley.
[2017-11-30] MEDS: Magnesium Hydroxide Susp 30 ml UD PO SCH (11:29)
[2017-11-30] MEDS: Enoxaparin 40 mg Syringe SC SCH (11:29)
[2017-12-01] MEDS: Simethicone 80 mg Chewtab PO SCH ×2 (04:34→12:02)
--- NOTE | 2017-12-01 07:16 | CP.PCM.PN ---
Subjective - Date & Time of Evaluation Date of Evaluation: 12/01/17 Time of Evaluation: 07:00 - Subjective Subjective: PGY 2 Progress Note- Dr. Stanley's service Patient seen and examined. He is hospitalized for sepsis secondary to pneumonia. Patient was on bipap with accessory muscle use. Rapid response was called at 9:49 AM. Patient was not responding. At first patients pulses were not palpated so code blue was called but pulses were immediately palpated. BP was 157/99. Finger stick glucose was 136. Patient was given NS bolus, 1 amp bicarb. BP dropped to 81/53 so dopamine drip was started. HR was in the 60s. Versed 20mg was given and anesthesia was present to intubate the patient. ICU was present and accepted patient for transfer. Objective - Vital Signs/Intake and Output Vital Signs (last 24 hours): Temp Pulse Resp BP Pulse Ox 98.3 F 65 20 102/66 97 11/30/17 23:40 12/01/17 01:52 11/30/17 23:40 11/30/17 23:40 11/30/17 23:40 Intake and Output: 12/01/17 12/01/17 06:59 18:59 Output Total 1000 Balance -1000 - Medications Medications: Current Medications Albuterol/Ipratropium (Duoneb 3 Mg/0.5 Mg (3 Ml) Ud) 3 ml INH RQ6 PRN PRN Reason: Shortness of Breath Enoxaparin Sodium (Lovenox) 40 mg SC DAILY [facility] Last Admin: 11/30/17 11:29 Dose: Not Given Famotidine (Pepcid) 20 mg PO DAILY [facility] Last Admin: 11/30/17 11:28 Dose: 20 mg Magnesium Hydroxide (Milk Of Magnesia) 30 ml PO DAILY [facility] Last Admin: 11/30/17 11:29 Dose: Not Given Metoclopramide HCl (Reglan) 10 mg PO BID [facility] Last Admin: 11/30/17 18:30 Dose: Not Given Pneumococcal Polyvalent Vaccine (Pneumovax 23 Vaccine) 0.5 ml IM .ONCE ONE Stop: 12/02/17 10:01 Simethicone (Mylicon Chew Tab) 80 mg PO Q6H [facility] Last Admin: 12/01/17 04:34 Dose: Not Given Tamsulosin HCl (Flomax) 0.4 mg PO DAILY [facility] Last Admin: 11/30/17 11:28 Dose: 0.4 mg - Labs Labs: 11/30/17 08:13 11/30/17 08:13 PT 16.6 SECONDS (9.7-12.2) H 11/26/17 17:31 INR 1.5 11/26/17 17:31 APTT 31 SECONDS (21-34) 11/26/17 17:31 - Constitutional Appears: Toxic, In Acute Distress, Chronically Ill - Head Exam Head Exam: ATRAUMATIC, NORMAL INSPECTION - Eye Exam Eye Exam: EOMI - ENT Exam ENT Exam: Mucous Membranes Dry - Respiratory Exam Respiratory Exam: Accessory Muscle Use, Decreased Breath Sounds, Rales, Respiratory Distress - Cardiovascular Exam Cardiovascular Exam: REGULAR RHYTHM, +S1, +S2 - GI/Abdominal Exam GI & Abdominal Exam: Soft, Normal Bowel Sounds. absent: Distended, Firm, Guarding, Tenderness - Extremities Exam Extremities Exam: absent: Normal Inspection - Back Exam Back Exam: NORMAL INSPECTION - Neurological Exam Neurological Exam: absent: Alert, Awake, Oriented x3 Assessment and Plan - Assessment and Plan (Free Text) Assessment: PLEASE SEE HPI: Patient was intubated due to respiratory distress and sent to the ICU for further management. Sepsis Afebrile ; WBC mildly elevated Chest CT- Moderate large right effusion with moderate right atelectasis with air bronchograms noted; left effusion . Refer to complete report. Meropenem 500mg IVPB Q8 Vancomycin 1gram IVPH Q24 hours [address] Becerril, ID on case - F/U recommendations Urine cx 11/26 - no growth Blood cx 11/26 - no growth 48 hours Lactate 0.8 on admission Chest X ray - moderate venous congestion. moderate bibasilar airspace opacities. small bilateral pleural effusion. consolidate changes left hilar region and righ infrahilar region. Right paratracheal airspace opacity. mild cardiomegaly EKG - NSR 78 bpm, left axis deviation, T wave inversions III, V3-V6, no acute ST changes) f/u echo Legionella, strep pneumo, mycoplasma- All negative Effusion IR consulted but not enough fluid to tap. Considerations for Pulm consult COPD Patient is on bipap for suspected pneumonia Duonebs prn Influenza - negative Hx CVA Patient is allergic to aspirin Chronic extremity wounds Wound care patient is bedridden Arthritis Tylenol prn BPH Flomax 0.4mg PO daily Constipation [id number] SC Q6 hours keeley Milk of magnesia 30ml PO daily on Linzess at home Lethargy Avoid medications that may be sedating Prophylactic Measures Lovenox 40mg SC daily Pepcid 20mg PO daily Reglan 10mg PO BID PT/OT - patient is bedridden Discussed with attending. All management per Dr. Stanley.
[2017-12-01 08:38] LABS: BASO % 0.2 % (0.0-2.0); HEMOGLOBIN 12.4 g/dL (12.0-18.0); LYMPH # 0.6 K/uL (1.0-4.3); LYMPH % 5.7 % (20.0-40.0); MEAN CELL VOLUME 87.6 fL (80.0-94.0); MEAN CORPUSCULAR HEMOGLOBIN 28.6 pg (27.0-31.0); MEAN CORPUSCULAR HGB CONC 32.6 g/dL (33.0-37.0); MEAN PLATELET VOLUME 8.7 fL (7.2-11.7); MONO # 0.9 K/uL (0.0-0.8); MONO % 9.2 % (0.0-10.0); NEUT # 8.7 K/uL (1.8-7.0); NEUT % 84.9 % (50.0-75.0); NRBC % 0.1 % (0.0-2.0); PLATELET COUNT 181 K/uL (130-400); RBC 4.35 Mil/uL (4.40-5.90); RED CELL DISTRIBUTION WIDTH 17.1 % (11.5-14.5); WHITE BLOOD COUNT 10.2 K/uL (4.8-10.8)
[2017-12-01 09:01] LABS: ALB/GLOB RATIO 0.8 (1.0-2.1); CALCIUM 8.1 mg/dl (8.6-10.4); MAGNESIUM 3.3 mg/dL (1.6-2.3)
[2017-12-01] MEDS ORDERED: DOPamine 400mg/250ml D5W 400 MG/250 ML BAG IV PRN ×2 (10:04→22:49)
[2017-12-01] MEDS ORDERED: Sodium Chloride 0.9% 500 ML IV ONE (10:05)
[2017-12-01] MEDS ORDERED: Midazolam 2 MG/2 ML VIAL IVP ONE (10:05)
[2017-12-01] MEDS ORDERED: Midazolam 2 MG/2 ML VIAL ONE (10:05)
--- NOTE | 2017-12-01 10:29 | RAD ---
HISTORY: intubation, rapid COMPARISON: Chest radiograph dated 11/26/2017. FINDINGS: LUNGS: Pulmonary vascular congestion. No focal consolidation. PLEURA: Small bilateral pleural effusions. No pneumothorax apparent. CARDIOVASCULAR: No sclerotic aortic calcifications. Cardiomediastinal silhouette stably from. OSSEOUS STRUCTURES: Anterior cervical fixation plate redemonstrated. Unchanged No significant abnormalities. VISUALIZED UPPER ABDOMEN: Normal. OTHER FINDINGS: Interval intubation with endotracheal tube tip at the level of the clavicles. Overlying pacer/ defibrillator pads. IMPRESSION: Interval placement of endotracheal tube in satisfactory position. Pulmonary vascular congestion and small bilateral pleural effusions, slightly increased
[2017-12-01] MEDS ORDERED: Propofol 10 mg/ml 1,000 MG/100 ML VIAL IV PRN (10:43)
--- NOTE | 2017-12-01 10:48 | CP.PCM.CON ---
<Rick Biswas - Last Filed: 12/01/17 15:11> History of Present Illness - History of Present Illness History of Present Illness: CCU Consult Note CC: Respiratory Failure HPI: Pt is a 72yo male with a PMHx of CHF, asthma, COPD, HTN, CVA, BPH who was brought to the ER via ambulance [facility] 11/[facility]/17 [facility] for shortness of breath and hypotension. He was admitted to the general medical floor for pneumonia and sepsis. He was put on BiPAP, miropenem and vanco. Chest CT show small to moderate bilateral pleural effusions, IR determined there was insufficient fluid to perform thoracentesis. Cirtical care responded to [employer] and subsequent code blue for respiratory arrest called on 12/01/17. Pt was intubated and lost pulses momentarily. NS bolus and dopamine 10mcg/kg/min were given. No epi was administered. Pt was transferred to ICU for further care PMhx: CHF, asthma, COPD, HTN, CVA, BPH, arthritis SHx: vertebral fusion, PEG, Allergies: ASA, ketorolac, NSAIDs Social: denied (chart review) family hx: denied (chart review) Review of Systems - Review of Systems Review of Systems: per HPI Past Patient History - Past Medical History & Family History Past Medical History?: Yes - Past Social History Smoking Status: Former Smoker - CARDIAC Hx Congestive Heart Failure: Yes Hx Hypertension: Yes - PULMONARY Hx Chronic Obstructive Pulmonary Disease (COPD): Yes - NEUROLOGICAL HX Cerebrovascular Accident: Yes (left hemiparesis) - HEENT Hx Difficulty Chewing: Yes - RENAL Hx Renal Failure: Yes (renal insufficiency) - MUSCULOSKELETAL/RHEUMATOLOGICAL Hx Arthritis: Yes (neck and right shoulder) - GASTROINTESTINAL Hx Clostridium Difficile: Yes Other/Comment: PEG - GENITOURINARY/GYNECOLOGICAL Hx Incontinence: Yes Hx Prostate Problems: Yes - PSYCHIATRIC Hx Substance Use: No - SURGICAL HISTORY Hx Herniorrhaphy: Yes Other/Comment: Laminectomy - ANESTHESIA Hx Anesthesia: Yes Hx Anesthesia Reactions: No Meds Allergies/Adverse Reactions: Allergies Allergy/AdvReac Type Severity Reaction Status Date / Time aspirin Allergy Verified 11/26/17 17:20 ketorolac [From Toradol] Allergy Verified 11/26/17 17:20 NSAIDS (Non-Steroidal Allergy Verified 11/26/17 17:20 Anti-Inflamma - Medications Medications: Current Medications Albuterol/Ipratropium (Duoneb 3 Mg/0.5 Mg (3 Ml) Ud) 3 ml INH RQ6 PRN PRN Reason: Shortness of Breath Enoxaparin Sodium (Lovenox) 40 mg SC DAILY [facility] Last Admin: 11/30/17 11:29 Dose: Not Given Famotidine (Pepcid) 20 mg PO DAILY [facility] Last Admin: 11/30/17 11:28 Dose: 20 mg Dopamine HCl/Dextrose (Dopamine 400mg/250ml D5w) 400 mg in 250 mls @ 6.77 mls/ hr IV .Q24H PRN; Protocol; 2 MCG/KG/MIN PRN Reason: TITRATE PER MD ORDER Propofol (Diprivan) 1,000 mg in 100 mls @ 2.708 mls/hr IV .Q24H PRN; Protocol; 5 MCG/KG/MIN PRN Reason: TITRATE PER MD ORDER Magnesium Hydroxide (Milk Of Magnesia) 30 ml PO DAILY [facility] Last Admin: 11/30/17 11:29 Dose: Not Given Metoclopramide HCl (Reglan) 10 mg PO BID [facility] Last Admin: 11/30/17 18:30 Dose: Not Given Pneumococcal Polyvalent Vaccine (Pneumovax 23 Vaccine) 0.5 ml IM .ONCE ONE Stop: 12/02/17 10:01 Simethicone (Mylicon Chew Tab) 80 mg PO Q6H [facility] Last Admin: 12/01/17 04:34 Dose: Not Given Tamsulosin HCl (Flomax) 0.4 mg PO DAILY [facility] Last Admin: 11/30/17 11:28 Dose: 0.4 mg Physical Exam - Constitutional Appears: Chronically Ill - Head Exam Head Exam: ATRAUMATIC, NORMAL INSPECTION, NORMOCEPHALIC - Eye Exam Eye Exam: EOMI Pupil Exam: NORMAL ACCOMODATION - ENT Exam ENT Exam: Mucous Membranes Moist - Respiratory Exam Respiratory Exam: Rales - Cardiovascular Exam Cardiovascular Exam: Tachycardia - GI/Abdominal Exam GI & Abdominal Exam: Normal Bowel Sounds, Soft. absent: Distended, Tenderness - Extremities Exam Extremities exam: Negative for: joint swelling, tenderness - Skin Skin Exam: Dry, Intact, Normal Color, Warm Results - Vital Signs Recent Vital Signs: Last Vital Signs Temp 98.6 F 12/01/17 08:40 Pulse 66 12/01/17 10:08 Resp 20 12/01/17 08:40 BP 105/69 12/01/17 10:08 Pulse Ox 97 12/01/17 09:30 - Labs Result Diagrams: 12/01/17 08:30 12/01/17 08:30 Labs: Laboratory Results - last 24 hr 11/30/17 12/01/17 12/01/17 08:13 08:30 08:30 WBC 10.2 RBC 4.35 L Hgb 12.4 Hct 38.1 MCV 87.6 MCH 28.6 MCHC 32.6 L RDW 17.1 H Plt Count 181 MPV 8.7 Neut % (Auto) 84.9 H Lymph % (Auto) 5.7 L [place] % (Auto) 9.2 Eos % (Auto) 0.0 Baso % (Auto) 0.2 Neut # (Auto) 8.7 H Lymph # (Auto) 0.6 L [place] # (Auto) 0.9 H Eos # (Auto) 0.0 Baso # (Auto) 0.0 Sodium 144 Potassium 5.8 H Chloride 104 Carbon Dioxide 36 H Anion Gap 9 L BUN 43 H Creatinine 1.6 H Est GFR ( Amer) 52 Est GFR (Non-Af Amer) 43 POC Glucose (mg/dL) Random Glucose 135 H Calcium 8.1 L Phosphorus 5.3 H Magnesium 3.3 H Total Bilirubin 0.4 AST 18 ALT 24 Alkaline Phosphatase 76 Total Protein 7.0 Albumin 3.0 L Globulin 4.0 H Albumin/Globulin Ratio 0.8 L Procalcitonin 2.60 H 12/01/17 10:01 WBC RBC Hgb Hct MCV MCH MCHC RDW Plt Count MPV Neut % (Auto) Lymph % (Auto) [place] % (Auto) Eos % (Auto) Baso % (Auto) Neut # (Auto) Lymph # (Auto) [place] # (Auto) Eos # (Auto) Baso # (Auto) Sodium Potassium Chloride Carbon Dioxide Anion Gap BUN Creatinine Est GFR ( Amer) Est GFR (Non-Af Amer) POC Glucose (mg/dL) 126 H Random Glucose Calcium Phosphorus Magnesium Total Bilirubin AST ALT Alkaline Phosphatase Total Protein Albumin Globulin Albumin/Globulin Ratio Procalcitonin Assessment & Plan - Assessment and Plan (Free Text) Assessment: 72M Septic Shock Possibly 2/2 to pneumonia, respiratory failure Plan: Psych: No acute issue Neuro: diprivan for sedation Cardio: no acute issues Pulm: intubated, respiratory failure, congestion on CXR with bilateral effusions , septic shock poss 2/2 to pneumonia, vanco/merrem GI: NPO, No acute issues Renal: no acute issues PPx: lovenox, pepcid <Justino Arciniega S - Last Filed: 12/01/17 17:25> Meds - Medications Medications: Current Medications Albuterol/Ipratropium (Duoneb 3 Mg/0.5 Mg (3 Ml) Ud) 3 ml INH RQ6 PRN PRN Reason: Shortness of Breath Enoxaparin Sodium (Lovenox) 40 mg SC DAILY [facility] Last Admin: 12/01/17 12:24 Dose: 40 mg Famotidine (Pepcid) 20 mg PO DAILY [facility] Last Admin: 12/01/17 12:42 Dose: Not Given Propofol (Diprivan) 1,000 mg in 100 mls @ 2.708 mls/hr IV .Q24H PRN; Protocol; 5 MCG/KG/MIN PRN Reason: TITRATE PER MD ORDER Last Titration: 12/01/17 15:34 Dose: 10 mcg/kg/min, 5.416 mls/hr Sodium Chloride (Sodium Chloride 0.9%) 1,000 mls @ 125 mls/hr IV .Q8H [facility] Last Admin: 12/01/17 12:12 Dose: 125 mls/hr Meropenem 1 gm/ Sodium (Chloride) 100 mls @ 100 mls/hr IVPB Q8 [facility] Last Admin: 12/01/17 13:27 Dose: 100 mls/hr Vancomycin HCl 1 gm/ Sodium (Chloride) 200 mls @ 166.7 mls/hr IVPB Q24H [facility] Last Admin: 12/01/17 15:36 Dose: 166.7 mls/hr Pneumococcal Polyvalent Vaccine (Pneumovax 23 Vaccine) 0.5 ml IM .ONCE ONE Stop: 12/02/17 10:01 Tamsulosin HCl (Flomax) 0.4 mg PO DAILY [facility] Last Admin: 12/01/17 12:41 Dose: Not Given Results - Vital Signs Recent Vital Signs: Last Vital Signs Temp 98.6 F 12/01/17 08:40 Pulse 66 12/01/17 10:08 Resp 20 12/01/17 08:40 BP 105/69 12/01/17 10:08 Pulse Ox 97 12/01/17 09:30 - Labs Result Diagrams: 12/01/17 08:30 12/01/17 08:30 Labs: Laboratory Results - last 24 hr 12/01/17 12/01/17 12/01/17 08:30 08:30 10:01 WBC 10.2 RBC 4.35 L Hgb 12.4 Hct 38.1 MCV 87.6 MCH 28.6 MCHC 32.6 L RDW 17.1 H Plt Count 181 MPV 8.7 Neut % (Auto) 84.9 H Lymph % (Auto) 5.7 L [place] % (Auto) 9.2 Eos % (Auto) 0.0 Baso % (Auto) 0.2 Neut # (Auto) 8.7 H Lymph # (Auto) 0.6 L [place] # (Auto) 0.9 H Eos # (Auto) 0.0 Baso # (Auto) 0.0 Neutrophils % (Manual) 74 Band Neutrophils % 1 Lymphocytes % (Manual) 10 L Monocytes % (Manual) 15 H Platelet Estimate Normal Anisocytosis (manual) Slight Puncture Site pCO2 pO2 HCO3 ABG pH ABG Total CO2 ABG O2 Saturation ABG Base Excess Oscar Test ABG Potassium A-a O2 Difference Respiratory Index Glucose Lactate Vent Mode Mechanical Rate FiO2 Tidal Volume PEEP Sodium 144 Potassium 5.8 H Chloride 104 Carbon Dioxide 36 H Anion Gap 9 L BUN 43 H Creatinine 1.6 H Est GFR ( Amer) 52 Est GFR (Non-Af Amer) 43 POC Glucose (mg/dL) 126 H Random Glucose 135 H Calcium 8.1 L Phosphorus 5.3 H Magnesium 3.3 H Total Bilirubin 0.4 AST 18 ALT 24 Alkaline Phosphatase 76 Total Protein 7.0 Albumin 3.0 L Globulin 4.0 H Albumin/Globulin Ratio 0.8 L Arterial Blood Potassium 12/01/17 11:39 WBC RBC Hgb Hct MCV MCH MCHC RDW Plt Count MPV Neut % (Auto) Lymph % (Auto) Ward % (Auto) Eos % (Auto) Baso % (Auto) Neut # (Auto) Lymph # (Auto) Ward # (Auto) Eos # (Auto) Baso # (Auto) Neutrophils % (Manual) Band Neutrophils % Lymphocytes % (Manual) Monocytes % (Manual) Platelet Estimate Anisocytosis (manual) Puncture Site Rrad pCO2 66 H pO2 68 L HCO3 29.2 H ABG pH 7.32 L ABG Total CO2 36.0 H ABG O2 Saturation 96.4 ABG Base Excess 5.7 H Oscar Test Na ABG Potassium 5.2 A-a O2 Difference 563.0 Respiratory Index 8.3 Glucose 130 H Lactate 0.9 Vent Mode A/c Mechanical Rate 16 FiO2 100.0 Tidal Volume 500 PEEP 5 Sodium 147.0 Potassium Chloride 113.0 H Carbon Dioxide Anion Gap BUN Creatinine Est GFR ( Amer) Est GFR (Non-Af Amer) POC Glucose (mg/dL) Random Glucose Calcium Phosphorus Magnesium Total Bilirubin AST ALT Alkaline Phosphatase Total Protein Albumin Globulin Albumin/Globulin Ratio Arterial Blood Potassium 5.2 Attending/Attestation - Attestation I have personally seen and examined this patient.: Yes I have fully participated in the care of the patient.: Yes I have reviewed all pertinent clinical information: Yes Notes (Text): 12/01/17 17:23 Patient seen and examined in the intensive care unit. Case discussed with house staff in the morning. Patient intubated for respiratory arrest and loss pulse for a short time patient being treated for pneumonia Chest x-ray and CAT scan consistent with left pleural effusion Thoracic consult Continue antibiotics IV sedation Follow-up culture and sensitivity
--- NOTE | 2017-12-01 10:49 | PCM.ANES ---
Anesthesia Emergent Intubation - Diagnosis Working Diagnosis:: respiratory distress - Consult Reason for Consult:: emergent endotracheal intubation - Intubation Attempts Previous Number of Intubation Attempts:: 0 - Pre-Intubation Vital Signs Oxygen Delivery Method: Ambu-Bag Level Of Consciousness: Lethargic, Somnolent - Airway Management Inhalation: No Rapid Sequence: No Possible Aspiration: No - Method of Intubation Intubation Method: Oral ETT ETT Size: 8 Lipline@: 24cm Easy: Yes (glidescope 3 ) Atramatic: No - Intubation Devices [place] Scope Used: Yes - Placement Confirmation Breath Sounds Present & Equal Bilaterally: Yes Gurgling Sounds Not Audible at Epigastrum: Yes Positive EtCO2: Yes Portable CXR: Yes
[2017-12-01] MEDS: Magnesium Hydroxide Susp 30 ml UD PO SCH (11:00)
[2017-12-01 11:29] LABS: ANISOCYTOSIS SLIGHT; BANDS 1 % (0-2); LYMPHOCYTE 10 % (20-40); MONOCYTE 15 % (0-10); NEUTROPHIL 74 % (50-75); PLATELET ESTIMATE NORMAL (NORMAL); TOTAL CELLS COUNTED 100
[2017-12-01 11:42] LABS: ARTERIAL BLOOD GAS HCO3 29.2 mmol/L (21-28); ARTERIAL BLOOD GAS O2 SAT 96.4 % (95-98); ARTERIAL BLOOD GAS PCO2 66 mm/Hg (35-45); ARTERIAL BLOOD GAS PH 7.32 (7.35-7.45); ARTERIAL BLOOD GAS PO2 68 mm/Hg (80-100)
--- NOTE | 2017-12-01 11:48 | CP.PCM.CON ---
History of Present Illness - History of Present Illness History of Present Illness: General Surgery Consult Reason for consult: Pleural Empyema 72 year old male with a past medical history of CHF, asthma, and COPD was brought to [facility]'s ED via ambulance from a snf on 11/26/17 for SOB and hypotension. He was worked up for pneumonia and sepsis. Chest X-ray and CT revealed moderate bilateral pleural effusions and IR was consulted on . IR determined there was insufficient fluid to perform thoracentesis. DETECTIVE CHIEF and subsequent code blue was called for respiratory arrest earlier today. Pt was intubated and lost pulses momentarily. NS bolus and dopamine 10mcg/kg/min were given. Pt was transferred to ICU. He is currently intubated and on ventilator support. He is also currently sedated. Further history and ROS was unattainable due to clinical condition. PMH: CHF, Asthma, COPD, HTN, CVA, BPH, Arthritis PSH: Vertebral fusion, PEG Allergies: ASA, Ketorolac, NSAIDS Social Hx: Denies currently smoking (former smoker) Family Hx: Denied (reviewed chart) Medications: As per EMR Review of Systems - Review of Systems All systems: reviewed and no additional remarkable complaints except Review of Systems: As per HPI Past Patient History - Past Medical History & Family History Past Medical History?: Yes - Past Social History Smoking Status: Former Smoker - CARDIAC Hx Congestive Heart Failure: Yes Hx Hypertension: Yes - PULMONARY Hx Chronic Obstructive Pulmonary Disease (COPD): Yes - NEUROLOGICAL HX Cerebrovascular Accident: Yes (left hemiparesis) - HEENT Hx Difficulty Chewing: Yes - RENAL Hx Renal Failure: Yes (renal insufficiency) - MUSCULOSKELETAL/RHEUMATOLOGICAL Hx Arthritis: Yes (neck and right shoulder) - GASTROINTESTINAL Hx Clostridium Difficile: Yes Other/Comment: PEG - GENITOURINARY/GYNECOLOGICAL Hx Incontinence: Yes Hx Prostate Problems: Yes - PSYCHIATRIC Hx Substance Use: No - SURGICAL HISTORY Hx Herniorrhaphy: Yes Other/Comment: Laminectomy - ANESTHESIA Hx Anesthesia: Yes Hx Anesthesia Reactions: No Meds Allergies/Adverse Reactions: Allergies Allergy/AdvReac Type Severity Reaction Status Date / Time aspirin Allergy Verified 11/26/17 17:20 ketorolac [From Toradol] Allergy Verified 11/26/17 17:20 NSAIDS (Non-Steroidal Allergy Verified 11/26/17 17:20 Anti-Inflamma - Medications Medications: Current Medications Albuterol/Ipratropium (Duoneb 3 Mg/0.5 Mg (3 Ml) Ud) 3 ml INH RQ6 PRN PRN Reason: Shortness of Breath Enoxaparin Sodium (Lovenox) 40 mg SC DAILY [facility] Last Admin: 11/30/17 11:29 Dose: Not Given Famotidine (Pepcid) 20 mg PO DAILY [facility] Last Admin: 11/30/17 11:28 Dose: 20 mg Dopamine HCl/Dextrose (Dopamine 400mg/250ml D5w) 400 mg in 250 mls @ 6.77 mls/ hr IV .Q24H PRN; Protocol; 2 MCG/KG/MIN PRN Reason: TITRATE PER MD ORDER Propofol (Diprivan) 1,000 mg in 100 mls @ 2.708 mls/hr IV .Q24H PRN; Protocol; 5 MCG/KG/MIN PRN Reason: TITRATE PER MD ORDER Magnesium Hydroxide (Milk Of Magnesia) 30 ml PO DAILY [facility] Last Admin: 11/30/17 11:29 Dose: Not Given Metoclopramide HCl (Reglan) 10 mg PO BID [facility] Last Admin: 11/30/17 18:30 Dose: Not Given Pneumococcal Polyvalent Vaccine (Pneumovax 23 Vaccine) 0.5 ml IM .ONCE ONE Stop: 12/02/17 10:01 Simethicone (Mylicon Chew Tab) 80 mg PO Q6H [facility] Last Admin: 12/01/17 04:34 Dose: Not Given Tamsulosin HCl (Flomax) 0.4 mg PO DAILY [facility] Last Admin: 11/30/17 11:28 Dose: 0.4 mg Physical Exam - Constitutional Appears: No Acute Distress, Other (intubated and sedated) - Head Exam Head Exam: ATRAUMATIC, NORMOCEPHALIC - Eye Exam Eye Exam: Normal appearance - ENT Exam ENT Exam: Mucous Membranes Moist Additional comments: ET tube in place - Respiratory Exam Respiratory Exam: Decreased Breath Sounds, Rales. absent: Accessory Muscle Use , Chest Wall Tenderness, Wheezes, Stridor Additional comments: intubated and on vent support 500, 5, 16, 100% - Cardiovascular Exam Cardiovascular Exam: REGULAR RHYTHM, RRR, +S1, +S2 - GI/Abdominal Exam GI & Abdominal Exam: Normal Bowel Sounds, Soft. absent: Distended, Firm, Guarding, Rebound - Extremities Exam Extremities exam: Positive for: pedal edema, pedal pulses present - Neurological Exam Neurological exam: Altered - Psychiatric Exam Psychiatric exam: Flat Affect - Skin Skin Exam: Dry, Intact, Normal Color Results - Vital Signs Recent Vital Signs: Last Vital Signs Temp 98.6 F 12/01/17 08:40 Pulse 66 12/01/17 10:08 Resp 20 12/01/17 08:40 BP 105/69 12/01/17 10:08 Pulse Ox 97 12/01/17 09:30 - Labs Result Diagrams: 12/01/17 08:30 12/01/17 08:30 Labs: Laboratory Results - last 24 hr 12/01/17 12/01/17 12/01/17 08:30 08:30 10:01 WBC 10.2 RBC 4.35 L Hgb 12.4 Hct 38.1 MCV 87.6 MCH 28.6 MCHC 32.6 L RDW 17.1 H Plt Count 181 MPV 8.7 Neut % (Auto) 84.9 H Lymph % (Auto) 5.7 L Howard % (Auto) 9.2 Eos % (Auto) 0.0 Baso % (Auto) 0.2 Neut # (Auto) 8.7 H Lymph # (Auto) 0.6 L Howard # (Auto) 0.9 H Eos # (Auto) 0.0 Baso # (Auto) 0.0 Neutrophils % (Manual) 74 Band Neutrophils % 1 Lymphocytes % (Manual) 10 L Monocytes % (Manual) 15 H Platelet Estimate Normal Anisocytosis (manual) Slight Puncture Site pCO2 pO2 HCO3 ABG pH ABG Total CO2 ABG O2 Saturation ABG Base Excess Oscar Test ABG Potassium A-a O2 Difference Respiratory Index Glucose Lactate Vent Mode Mechanical Rate FiO2 Tidal Volume PEEP Sodium 144 Potassium 5.8 H Chloride 104 Carbon Dioxide 36 H Anion Gap 9 L BUN 43 H Creatinine 1.6 H Est GFR ( Amer) 52 Est GFR (Non-Af Amer) 43 POC Glucose (mg/dL) 126 H Random Glucose 135 H Calcium 8.1 L Phosphorus 5.3 H Magnesium 3.3 H Total Bilirubin 0.4 AST 18 ALT 24 Alkaline Phosphatase 76 Total Protein 7.0 Albumin 3.0 L Globulin 4.0 H Albumin/Globulin Ratio 0.8 L Arterial Blood Potassium 12/01/17 11:39 WBC RBC Hgb Hct MCV MCH MCHC RDW Plt Count MPV Neut % (Auto) Lymph % (Auto) Howard % (Auto) Eos % (Auto) Baso % (Auto) Neut # (Auto) Lymph # (Auto) Howard # (Auto) Eos # (Auto) Baso # (Auto) Neutrophils % (Manual) Band Neutrophils % Lymphocytes % (Manual) Monocytes % (Manual) Platelet Estimate Anisocytosis (manual) Puncture Site Rrad pCO2 66 H pO2 68 L HCO3 29.2 H ABG pH 7.32 L ABG Total CO2 36.0 H ABG O2 Saturation 96.4 ABG Base Excess 5.7 H Oscar Test Na ABG Potassium 5.2 A-a O2 Difference 563.0 Respiratory Index 8.3 Glucose 130 H Lactate 0.9 Vent Mode A/c Mechanical Rate 16 FiO2 100.0 Tidal Volume 500 PEEP 5 Sodium 147.0 Potassium Chloride 113.0 H Carbon Dioxide Anion Gap BUN Creatinine Est GFR ( Amer) Est GFR (Non-Af Amer) POC Glucose (mg/dL) Random Glucose Calcium Phosphorus Magnesium Total Bilirubin AST ALT Alkaline Phosphatase Total Protein Albumin Globulin Albumin/Globulin Ratio Arterial Blood Potassium 5.2 Assessment & Plan - Assessment and Plan (Free Text) Assessment: 72 M presents s/p code blue intubated for respiratory failure, pulmonary congestion and small bilateral pleural effusions Plan: - Recommend cardio consult - CXR shows pulmonary congestion and small bilateral effusions - Continue antibiotic therapy - DVT/GI prophylaxis - No surgical intervention needed at this time - Management as per ICU - Will discuss with Dr. López Singh PGY1 - Date & Time Date: 12/01/17 Time: 14:14
[2017-12-01] MEDS: Sodium Chloride 0.9% 1,000 ML IV SCH ×2 (12:12→21:09)
[2017-12-01] MEDS: Enoxaparin 40 mg Syringe SC SCH (12:24)
[2017-12-01] MEDS ORDERED: Vancomycin 1 GM in Sodium Chloride 0.9% 200 ML IVPB SCH (12:30)
[2017-12-01] MEDS: Meropenem 1 GM in Sodium Chloride 0.9% 100 ML IVPB SCH ×2 (13:27→22:08)
[2017-12-01] MEDS: Vancomycin 1 GM in Sodium Chloride 0.9% 200 ML IVPB SCH (15:36)
--- NOTE | 2017-12-01 15:54 | CARD ---
APPROVED REPORT EKG Measurement Heart [id number] <Conclusion> Normal sinus rhythm Minimal voltage criteria for LVH, may be normal variant T wave abnormality, consider anterior ischemia Abnormal ECG
--- NOTE | 2017-12-01 18:39 | PCM.RRT ---
<JuanItzel - Last Filed: 12/01/17 18:35> SAUSAGE MAKER Nurses Assessment - Situation Date: 12/01/17 Time SAUSAGE MAKER was called: 09:49 SAUSAGE MAKER Responder Arrival Time:: 09:52 SAUSAGE MAKER Location:: Med/Surg Room Number: 670 A SAUSAGE MAKER Reason for Call: Respiratory Distress SAUSAGE MAKER Called By: RN - IV IV Inserted during SAUSAGE MAKER?: No - Respiratory SAUSAGE MAKER Delivery Method: BiPAP @% Secretions Suctioned?: No Was the Patient Intubated?: Yes Was the Patient Placed on a Ventilator?: Yes - Ventilator Settings Mode: PRVC Ventilator Respiratory Rate Settin Ventilator Tidal Volume Settin PEEP/CPAP (cm H2O): 5 SAO2 %: 99 FIO2 (% Oxygen): 100 CPR started during SAUSAGE MAKER?: Yes - Vital Signs Vital Signs: Rapid Response Vital Sign Blood Pressure 157/69 Pulse Rate 69 Respiratory Rate 12 - Time SAUSAGE MAKER Ended Time SAUSAGE MAKER Ended: 09:53 I.Reason for SAUSAGE MAKER - A) Acute Change in Patient: (Select all that apply): Acute change in mental status, Acute change in respiratory rate less than 8 or greater than 28 - Neurological Status (Select all that apply): Disoriented - Respiratory Oxygen Delivery Method: BiPAP @%, Intubated - Constitutional Appears: Toxic, In Acute Distress - Head Head Exam: ATRAUMATIC, NORMAL INSPECTION - Eyes Eye Exam: EOMI - Respiratory Exam Respiratory Exam: Accessory Muscle Use, Decreased Breath Sounds, Respiratory Distress - Cardiovascular Exam Cardiovascular Exam: REGULAR RHYTHM, +S1, +S2 - GI/Abdominal Exam GI & Abdominal Exam: Soft, Normal Bowel Sounds. absent: Distended, Firm, Guarding, Tenderness - Neurological Exam Neurological Exam: absent: Alert, Awake, Oriented x3 Plan - Assessment of Findings&Treatment Plan Rapid response was called at 9:49 AM. Patient was not responding and appeared to be in respiratory distress although on BIPAP with accessory muscle use. Patient was admitted for sepsis and pneumonia, not able to wean off of bipap since Wednesday. At first patients pulses were not palpated so code blue was called. Pulses were only lost momentarily. No epi was given. BP was 157/99. Finger stick glucose was 136. Patient was given NS bolus, 1 amp bicarb. BP dropped to 81/53 so dopamine drip was started. HR was in the 60s. Versed 20mg was given and anesthesia intubated the patient. ICU was consulted and accepted patient for transfer. <Guera Ornelas V - Last Filed: 12/06/17 21:07> SAUSAGE MAKER Nurses Assessment - Vital Signs Vital Signs: Rapid Response Vital Sign Blood Pressure 157/69 Pulse Rate 69 Respiratory Rate 12 Attending/Attestation - Attestation I have personally seen and examined this patient.: Yes I have fully participated in the care of the patient.: Yes I have reviewed all pertinent clinical information, including history, physical exam and plan: Yes Notes (Text): Late computer entry Brief Hospitalist Note: SAUSAGE MAKER Note: respiratory distress converted to Code Blue for temporary loss of pulse. Patient is in respiratory distress, agonal belly breathing, and appears obtunded. Unable to get ABG given clinical status. Code blue called given transient loss of pulse. Chest compression initiated. Pulse recovered without anti-arrhythmics. Patient required intubation by anesthesia present at bedside. ICU, Dr Arciniega present at bedside. Patient is not hypoglycemic, 1 amp of sodium bicarbonate, and started on Dopamine drip for hypotension which blood pressure recover and tachycardia post pressor and titrated down. Note: patient given Versed 2mg IVX1, not Versed 20mg as indicated in resident note. This is also verified in the EMR. Patient transferred to [address] [place] [address] to ICU. Patient's primary attending, Dr Stanley aware of acute event and present in the ICU upon transfer.
--- NOTE | 2017-12-01 18:48 | CP.PCM.PN ---
Subjective - Date & Time of Evaluation Date of Evaluation: 12/01/17 Time of Evaluation: 09:00 - Subjective Subjective: s/p code blue iv rx in progress Objective - Vital Signs/Intake and Output Vital Signs (last 24 hours): Temp Pulse Resp BP Pulse Ox 98.8 F 50 L 16 132/72 97 12/01/17 16:00 12/01/17 18:00 12/01/17 18:00 12/01/17 18:00 12/01/17 18:00 Intake and Output: 12/01/17 12/01/17 06:59 18:59 Intake Total 0 Output Total 1000 Balance -1000 0 - Medications Medications: Current Medications Albuterol/Ipratropium (Duoneb 3 Mg/0.5 Mg (3 Ml) Ud) 3 ml INH RQ6 PRN PRN Reason: Shortness of Breath Enoxaparin Sodium (Lovenox) 40 mg SC DAILY [facility] Last Admin: 12/01/17 12:24 Dose: 40 mg Famotidine (Pepcid) 20 mg PO DAILY [facility] Last Admin: 12/01/17 12:42 Dose: Not Given Propofol (Diprivan) 1,000 mg in 100 mls @ 2.708 mls/hr IV .Q24H PRN; Protocol; 5 MCG/KG/MIN PRN Reason: TITRATE PER MD ORDER Last Titration: 12/01/17 15:34 Dose: 10 mcg/kg/min, 5.416 mls/hr Sodium Chloride (Sodium Chloride 0.9%) 1,000 mls @ 125 mls/hr IV .Q8H [facility] Last Admin: 12/01/17 12:12 Dose: 125 mls/hr Meropenem 1 gm/ Sodium (Chloride) 100 mls @ 100 mls/hr IVPB Q8 [facility] Last Admin: 12/01/17 13:27 Dose: 100 mls/hr Vancomycin HCl 1 gm/ Sodium (Chloride) 200 mls @ 166.7 mls/hr IVPB Q24H [facility] Last Admin: 12/01/17 15:36 Dose: 166.7 mls/hr Pneumococcal Polyvalent Vaccine (Pneumovax 23 Vaccine) 0.5 ml IM .ONCE ONE Stop: 12/02/17 10:01 Tamsulosin HCl (Flomax) 0.4 mg PO DAILY [facility] Last Admin: 12/01/17 12:41 Dose: Not Given - Labs Labs: 12/01/17 08:30 12/01/17 08:30 PT 16.6 SECONDS (9.7-12.2) H 11/26/17 17:31 INR 1.5 11/26/17 17:31 APTT 31 SECONDS (21-34) 11/26/17 17:31 - Constitutional Appears: Chronically Ill - Head Exam Head Exam: NORMOCEPHALIC - Eye Exam Eye Exam: PERRL. absent: Scleral icterus - ENT Exam ENT Exam: Mucous Membranes Dry - Neck Exam Neck Exam: absent: Lymphadenopathy - Respiratory Exam Respiratory Exam: Decreased Breath Sounds - Cardiovascular Exam Cardiovascular Exam: REGULAR RHYTHM - GI/Abdominal Exam GI & Abdominal Exam: Distended, Soft - Rectal Exam Rectal Exam: Deferred - Exam Exam: NORMAL INSPECTION - Extremities Exam Extremities Exam: absent: Pedal Edema - Back Exam Back Exam: absent: CVA tenderness (L), CVA tenderness (R) - Neurological Exam Neurological Exam: Altered Assessment and Plan (1) Acute urinary retention Status: Acute (2) Fever Status: Acute (3) Sepsis associated hypotension Status: Acute - Assessment and Plan (Free Text) Assessment: salena saba discussed with dr Stanley
[2017-12-01 21:52] LABS: BASO % 0.4 % (0.0-2.0); EOS # 0.1 K/uL (0.0-0.7); HEMOGLOBIN 11.6 g/dL (12.0-18.0); LYMPH # 0.8 K/uL (1.0-4.3); LYMPH % 6.6 % (20.0-40.0); MEAN CELL VOLUME 86.5 fL (80.0-94.0); MEAN CORPUSCULAR HEMOGLOBIN 28.8 pg (27.0-31.0); MEAN CORPUSCULAR HGB CONC 33.3 g/dL (33.0-37.0); MEAN PLATELET VOLUME 8.4 fL (7.2-11.7); MONO # 1.4 K/uL (0.0-0.8); MONO % 11.6 % (0.0-10.0); NEUT # 9.8 K/uL (1.8-7.0); NEUT % 80.4 % (50.0-75.0); NRBC % 0.1 % (0.0-2.0); PLATELET COUNT 202 K/uL (130-400); RBC 4.04 Mil/uL (4.40-5.90); RED CELL DISTRIBUTION WIDTH 16.6 % (11.5-14.5); WHITE BLOOD COUNT 12.2 K/uL (4.8-10.8)
[2017-12-01 21:58] LABS: ABG ALLEN TEST POS; ARTERIAL BLOOD GAS HCO3 31.6 mmol/L (21-28); ARTERIAL BLOOD GAS O2 SAT 98.3 % (95-98); ARTERIAL BLOOD GAS PCO2 57 mm/Hg (35-45); ARTERIAL BLOOD GAS PO2 128 mm/Hg (80-100)
[2017-12-01 22:08] LABS: ALB/GLOB RATIO 0.8 (1.0-2.1); ALBUMIN 2.8 g/dL (3.5-5.0); ALT/SGPT 29 U/L (21-72); AST/SGOT 19 U/L (17-59); BLOOD UREA NITROGEN 45 mg/dL (9-20); GFR AFRICAN-AMERICAN > 60; GFR NON-AFRICAN AMERICAN 60
[2017-12-01 22:12] LABS: BANDS 1 % (0-2); LYMPHOCYTE 8 % (20-40); METAMYELOCYTE 2 % (0-0); MONOCYTE 15 % (0-10); NEUTROPHIL 74 % (50-75); TOTAL CELLS COUNTED 100
[2017-12-01 22:13] LABS: PLATELET ESTIMATE NORMAL (NORMAL)
[2017-12-02] MEDS: Sodium Chloride 0.9% 1,000 ML IV SCH ×2 (00:40→05:20)
[2017-12-02] MEDS ORDERED: Midazolam 2 MG/2 ML VIAL IVP ONE ×2 (01:13→01:30)
[2017-12-02] MEDS ORDERED: Midazolam 2 MG/2 ML VIAL ONE (01:37)
[2017-12-02 05:10] LABS: ABG ALLEN TEST POS; ARTERIAL BLOOD GAS HCO3 29.6 mmol/L (21-28); ARTERIAL BLOOD GAS HEMOGLOBIN 11.6 g/dL (11.7-17.4); ARTERIAL BLOOD GAS O2 SAT 90.9 % (95-98); ARTERIAL BLOOD GAS PCO2 42 mm/Hg (35-45); ARTERIAL BLOOD GAS PH 7.47 (7.35-7.45); ARTERIAL BLOOD GAS PO2 48 mm/Hg (80-100); ARTERIAL BLOOD GAS TCO2 31.9 mmol/L (22-28)
--- NOTE | 2017-12-02 05:17 | CP.PCM.PN ---
Subjective - Date & Time of Evaluation Date of Evaluation: 12/02/17 Time of Evaluation: 05:11 - Subjective Subjective: Patient had episodes of bradycardia and one of the episodes continued as no pulse/rhythm for brief < 30seconds by the time the patient was assessed he was already responding maintained bp sinus rhythm and pulse in mid 40's. Stat labs ordered, chart reviewed, hypoxia noted from earlier abg improvement in po2 on repeat abg but still hypoxic. Repeat labs not significant to cause bradycardia, patient started on dopamine drip for episodes of bradycardia. Venous doppler to check for DVT as ddimer elevated and patient is hypoxic. Also ordered full dose lovenox for him. CXR will be done this morning as well to assess changes in pl effusion. Objective - Vital Signs/Intake and Output Vital Signs (last 24 hours): Temp Pulse Resp BP Pulse Ox 98.7 F 82 14 173/74 H 92 L 12/02/17 01:57 12/02/17 04:50 12/02/17 04:50 12/02/17 03:47 12/02/17 04:40 Intake and Output: 12/01/17 12/02/17 18:59 06:59 Intake Total 1391 1637.4 Output Total 1465 Balance 1391 172.4 - Medications Medications: Current Medications Albuterol/Ipratropium (Duoneb 3 Mg/0.5 Mg (3 Ml) Ud) 3 ml INH RQ6 PRN PRN Reason: Shortness of Breath Enoxaparin Sodium (Lovenox) 80 mg SC Q12 [facility] Famotidine (Pepcid) 20 mg PO DAILY [facility] Last Admin: 12/01/17 12:42 Dose: Not Given Propofol (Diprivan) 1,000 mg in 100 mls @ 2.708 mls/hr IV .Q24H PRN; Protocol; 5 MCG/KG/MIN PRN Reason: TITRATE PER MD ORDER Last Titration: 12/01/17 15:34 Dose: 10 mcg/kg/min, 5.416 mls/hr Sodium Chloride (Sodium Chloride 0.9%) 1,000 mls @ 125 mls/hr IV .Q8H [facility] Last Admin: 12/02/17 00:40 Dose: 125 mls/hr Meropenem 1 gm/ Sodium (Chloride) 100 mls @ 100 mls/hr IVPB Q8 [facility] Last Admin: 12/01/17 22:08 Dose: 100 mls/hr Vancomycin HCl 1 gm/ Sodium (Chloride) 200 mls @ 166.7 mls/hr IVPB Q24H [facility] Last Admin: 12/01/17 15:36 Dose: 166.7 mls/hr Dopamine HCl/Dextrose (Dopamine 400mg/250ml D5w) 400 mg in 250 mls @ 6.765 mls/ hr IV .Q24H PRN; Protocol; 2 MCG/KG/MIN PRN Reason: TITRATE PER MD ORDER Last Titration: 12/02/17 04:13 Dose: 2.01 mcg/kg/min, 6.8 mls/hr Pneumococcal Polyvalent Vaccine (Pneumovax 23 Vaccine) 0.5 ml IM .ONCE ONE Stop: 12/02/17 10:01 Tamsulosin HCl (Flomax) 0.4 mg PO DAILY [facility] Last Admin: 12/01/17 12:41 Dose: Not Given - Labs Labs: 12/01/17 21:45 12/01/17 21:45 PT 16.6 SECONDS (9.7-12.2) H 11/26/17 17:31 INR 1.5 11/26/17 17:31 APTT 31 SECONDS (21-34) 11/26/17 17:31
[2017-12-02] MEDS: Meropenem 1 GM in Sodium Chloride 0.9% 100 ML IVPB SCH (05:21)
[2017-12-02 06:40] LABS: BASO % 0.2 % (0.0-2.0); EOS # 0.1 K/uL (0.0-0.7); EOS % 0.6 % (0.0-4.0); LYMPH % 9.1 % (20.0-40.0); MEAN CELL VOLUME 85.7 fL (80.0-94.0); MEAN CORPUSCULAR HEMOGLOBIN 29.1 pg (27.0-31.0); MEAN PLATELET VOLUME 8.7 fL (7.2-11.7); MONO # 1.3 K/uL (0.0-0.8); MONO % 11.9 % (0.0-10.0); NEUT # 8.8 K/uL (1.8-7.0); NEUT % 78.2 % (50.0-75.0); NRBC % 0.1 % (0.0-2.0); PLATELET COUNT 193 K/uL (130-400); RBC 3.77 Mil/uL (4.40-5.90); RED CELL DISTRIBUTION WIDTH 16.8 % (11.5-14.5); WHITE BLOOD COUNT 11.2 K/uL (4.8-10.8)
[2017-12-02 07:04] LABS: ALB/GLOB RATIO 0.8 (1.0-2.1); ALBUMIN 2.5 g/dL (3.5-5.0); ALT/SGPT 24 U/L (21-72); AST/SGOT 19 U/L (17-59); BLOOD UREA NITROGEN 38 mg/dL (9-20); CALCIUM 7.2 mg/dl (8.6-10.4); GFR AFRICAN-AMERICAN > 60; GFR NON-AFRICAN AMERICAN > 60; MAGNESIUM 2.6 mg/dL (1.6-2.3)
[2017-12-02 07:09] LABS: CK-MB 0.36 ng/mL (0.0-3.38)
[2017-12-02] MEDS ORDERED: Sodium Chloride 0.9% 1,000 ML IV SCH ×2 (08:00→09:40)
--- NOTE | 2017-12-02 08:18 | CP.PCM.PN ---
Subjective - Date & Time of Evaluation Date of Evaluation: 12/02/17 Time of Evaluation: 08:17 - Subjective Subjective: Cardiothoracic Surgery Note for Dr. Dawn Patient seen and examined at bedside. He had episodes of bradycardia overnight. Patient is intubated and on ventilator support. ROS unobtainable. Objective - Vital Signs/Intake and Output Vital Signs (last 24 hours): Temp Pulse Resp BP Pulse Ox 98 F 48 L 15 147/78 96 12/02/17 06:00 12/02/17 07:50 12/02/17 07:50 12/02/17 07:47 12/02/17 07:50 Intake and Output: 12/02/17 12/02/17 06:59 18:59 Intake Total 2031.0 Output Total 1590 Balance 441.0 - Medications Medications: Current Medications Albuterol/Ipratropium (Duoneb 3 Mg/0.5 Mg (3 Ml) Ud) 3 ml INH RQ6 PRN PRN Reason: Shortness of Breath Enoxaparin Sodium (Lovenox) 80 mg SC Q12 [facility] Famotidine (Pepcid) 20 mg PO DAILY [facility] Last Admin: 12/01/17 12:42 Dose: Not Given Propofol (Diprivan) 1,000 mg in 100 mls @ 2.708 mls/hr IV .Q24H PRN; Protocol; 5 MCG/KG/MIN PRN Reason: TITRATE PER MD ORDER Last Titration: 12/01/17 21:05 Dose: 0 mcg/kg/min, 0 mls/hr Sodium Chloride (Sodium Chloride 0.9%) 1,000 mls @ 125 mls/hr IV .Q8H [facility] Last Admin: 12/02/17 05:20 Dose: Not Given Meropenem 1 gm/ Sodium (Chloride) 100 mls @ 100 mls/hr IVPB Q8 [facility] Last Admin: 12/02/17 05:21 Dose: 100 mls/hr Vancomycin HCl 1 gm/ Sodium (Chloride) 200 mls @ 166.7 mls/hr IVPB Q24H [facility] Last Admin: 12/01/17 15:36 Dose: 166.7 mls/hr Dopamine HCl/Dextrose (Dopamine 400mg/250ml D5w) 400 mg in 250 mls @ 6.765 mls/ hr IV .Q24H PRN; Protocol; 2 MCG/KG/MIN PRN Reason: TITRATE PER MD ORDER Last Titration: 12/02/17 04:13 Dose: 2.01 mcg/kg/min, 6.8 mls/hr Potassium Phosphate 15 mmole/ (Dextrose) 105 mls @ 42.5 mls/hr IVPB ONCE ONE Stop: 12/02/17 10:58 Pneumococcal Polyvalent Vaccine (Pneumovax 23 Vaccine) 0.5 ml IM .ONCE ONE Stop: 12/02/17 10:01 Tamsulosin HCl (Flomax) 0.4 mg PO DAILY [facility] Last Admin: 12/01/17 12:41 Dose: Not Given - Labs Labs: 12/02/17 06:32 12/02/17 06:32 PT 16.6 SECONDS (9.7-12.2) H 11/26/17 17:31 INR 1.5 11/26/17 17:31 APTT 31 SECONDS (21-34) 11/26/17 17:31 - Constitutional Appears: No Acute Distress, Other (intubated and sedated) - Head Exam Head Exam: ATRAUMATIC, NORMOCEPHALIC - Eye Exam Eye Exam: Normal appearance - Respiratory Exam Respiratory Exam: Decreased Breath Sounds Additional comments: intubated and on vent support - Cardiovascular Exam Cardiovascular Exam: Bradycardia - GI/Abdominal Exam GI & Abdominal Exam: Soft. absent: Distended, Tenderness - Extremities Exam Extremities Exam: Normal Capillary Refill - Neurological Exam Neurological Exam: Altered - Psychiatric Exam Psychiatric exam: Flat Affect - Skin Skin Exam: Dry, Warm Assessment and Plan - Assessment and Plan (Free Text) Plan: 72 M presents s/p code blue intubated for respiratory failure with small bilateral pleural effusions - Recommend cardio consult - IV antibiotics - DVT/GI prophylaxis - No surgical intervention needed at this time - Management as per ICU - Will discuss with Dr. López Singh PGY1
[2017-12-02] MEDS ORDERED: WATER IVPB ONE (08:30)
[2017-12-02] MEDS ORDERED: DEXTROSE IVPB ONE (08:30)
[2017-12-02] MEDS ORDERED: POTASSIUM PHOSPHATE IVPB ONE (08:30)
[2017-12-02 08:48] LABS: BANDS 2 % (0-2); LYMPHOCYTE 8 % (20-40); MONOCYTE 11 % (0-10); NEUTROPHIL 79 % (50-75); PLATELET ESTIMATE NORMAL (NORMAL); TOTAL CELLS COUNTED 100
[2017-12-02 08:49] LABS: ANISOCYTOSIS SLIGHT; TARGET CELLS SLIGHT
--- NOTE | 2017-12-02 09:43 | RAD ---
Chest x-ray single frontal view History: Shortness of breath. Comparison: 12/01/2017 Findings: Endotracheal tube extending into mid thoracic trachea. NG tube extending into the stomach. Postsurgical changes in the cervical spine. Moderate venous congestion. Prominent airspace opacification in the right mid to lower lung zone with associated small to moderate right and small left pleural effusion. Tortuous ectatic aorta with cardiomegaly. Degenerative changes in the spine and shoulders. Impression: Endotracheal tube extending into mid thoracic trachea. NG tube extending into the stomach. Postsurgical changes in the cervical spine. Moderate venous congestion. Prominent airspace opacification in the right mid to lower lung zone with associated small to moderate right and small left pleural effusion. Tortuous ectatic aorta with cardiomegaly.
[2017-12-02] MEDS: Enoxaparin 80 mg Syringe SC SCH ×2 (09:49→23:00)
[2017-12-02] MEDS ORDERED: Pneumococcal 23-Valent Vaccine IM ONE (10:00)
[2017-12-02] MEDS ORDERED: Enoxaparin 80 mg Syringe SC SCH (10:00)
--- NOTE | 2017-12-02 10:14 | RAD ---
HISTORY: et COMPARISON: Chest x-ray performed 12/02/17 TECHNIQUE: Chest, one view. FINDINGS: Endotracheal tube terminates approximately 11.1 cm above the eri. Nasogastric tube extends expected location the stomach. 2 external defibrillator pads obscure evaluation of the underlying parenchyma. Numerous external wires and leads are noted. LUNGS: Moderate pulmonary venous congestion. Right lower lobe atelectasis or infiltrate. No definite pneumothorax. CARDIOVASCULAR: Cardiomegaly. Ectatic aorta. OSSEOUS STRUCTURES: Degenerative changes. Osseous demineralization. VISUALIZED UPPER ABDOMEN: Elevation of the right hemidiaphragm. OTHER FINDINGS: None. IMPRESSION: Support lines and tubes as above. Endotracheal tube terminates approximately 11.1 cm above the eri. Recommend repositioning endotracheal tube to approximately 3 cm above the eri. Correlate position with subsequent chest x-ray currently in process. Moderate pulmonary venous congestion. Right lower lobe atelectasis or infiltrate. Cardiomegaly. Ectatic aorta.
--- NOTE | 2017-12-02 10:25 | RAD ---
HISTORY: et COMPARISON: Numerous prior chest x-rays most recent performed earlier the same day. TECHNIQUE: Chest, one view. FINDINGS: Endotracheal tube terminates approximately 4.5 cm above the eri. Nasogastric tube extends beyond hemidiaphragm towards expected location of the stomach. Two external defibrillator pads noted. Numerous wires, tubes, an external device evident obscuring evaluation of the underlying parenchyma. Examination limited by habitus. LUNGS: Moderate pulmonary venous congestion. Biapical pleural thickening. Small right pleural effusion and associated consolidation. No definite pneumothorax. CARDIOVASCULAR: Cardiomegaly. Ectatic aorta OSSEOUS STRUCTURES: Osseous demineralization. Degenerative changes. VISUALIZED UPPER ABDOMEN: Elevation of the right hemidiaphragm. OTHER FINDINGS: None. IMPRESSION: Endotracheal tube terminates approximately 4.5 cm above the eri. Nasogastric tube extends beyond hemidiaphragm towards expected location of the stomach. Two external defibrillator pads noted. Moderate pulmonary venous congestion. Biapical pleural thickening. Small right pleural effusion and associated consolidation. Cardiomegaly. Ectatic aorta
[2017-12-02] MEDS: Piperacillin/Tazobact 3.375 GM in Sodium Chloride 100 ML IVPB SCH ×3 (11:00→21:45)
[2017-12-02] MEDS: Multiple Vitamins Oral Solution PO SCH (11:00)
[2017-12-02] MEDS: (Novolog) Insulin Aspart, Recombinant 100 u/ml 10 ml vial SC SCH ×3 (11:30→18:15)
--- NOTE | 2017-12-02 11:48 | CP.CCUPN ---
<Rick Biswas - Last Filed: 12/02/17 12:34> CCU Subjective - Physician Review Subjective (Free Text): 12/02/17 11:46 patient seen and examined at bedside. Will continue to titrate down FIo2 and cpap as tolerated. Cardio consult today for bradycardia. Will likely need pace maker. no sedation at this point. CCU Objective - Vital Signs / Intake & Output Vital Signs (Last 4 hours): Vital Signs Pulse Resp BP Pulse Ox 12/02/17 07:50 48 L 15 96 12/02/17 07:47 48 L 16 147/78 96 Intake and Output (Last 8hrs): Intake & Output 12/01/17 12/02/17 12/02/17 22:59 06:59 14:59 Intake Total 1310 1345.0 Output Total 920 670 Balance 390 675.0 Weight 198 lb 13.711 oz 178 lb 9.191 oz Intake: IV 30 50 Intake, IV Amount 1280 1295.0 Right Midline 1100 1225 Right Midline distal port 130 70.0 Right Upper arm 50 Output: Urine 920 670 Urethral (Singh) 920 670 - Medications Active Medications: Active Medications Generic Name Dose Route Start Last Admin Trade Name Freq PRN Reason Stop Dose Admin Albuterol/Ipratropium 3 ml 11/29/17 14:47 Duoneb 3 Mg/0.5 Mg (3 Ml) Ud INH RQ6 PRN Shortness of Breath Ascorbic Acid 250 mg 12/02/17 10:00 Vitamin C 250 Mg Tab PO DAILY ABHIJEET Enoxaparin Sodium 80 mg 12/02/17 05:53 12/02/17 09:49 Lovenox SC 80 mg Q12 ABHIJEET Administration Famotidine 20 mg 11/27/17 10:00 12/02/17 09:13 Pepcid PO 20 mg DAILY ABHIJEET Administration Propofol 1,000 mg in 100 mls @ 2.708 mls/hr 12/01/17 10:43 12/01/17 21:05 Diprivan IV 0 mcg/kg/min .Q24H PRN 0 mls/hr TITRATE PER MD ORDER Titration Protocol 5 MCG/KG/MIN Vancomycin HCl 1 gm/ Sodium 200 mls @ 166.7 mls/hr 12/01/17 16:00 12/01/17 15 :36 Chloride IVPB 166.7 mls/hr Q24H ABHIJEET Administration Dopamine HCl/Dextrose 400 mg in 250 mls @ 6.765 mls/hr 12/01/17 22:49 04:13 Dopamine 400mg/250ml D5w IV 2.01 mcg/kg/min .Q24H PRN 6.8 mls/hr TITRATE PER MD ORDER Titration Protocol 2 MCG/KG/MIN Piperacillin Sod/Tazobactam 100 mls @ 200 mls/hr 12/02/17 10:00 Sod 3.375 gm/ Sodium Chloride IVPB Q6H ABHIJEET Sodium Chloride 1,000 mls @ 42 mls/hr 12/02/17 09:40 Sodium Chloride 0.9% IV .[id number] [facility] Insulin Aspart 0 unit 12/02/17 11:30 Novolog SC ACHS [facility] Protocol Multivitamins/Vitamin C 5 ml 12/02/17 10:00 Multi-Delyn Liquid PO DAILY [facility] Tamsulosin HCl 0.4 mg 11/27/17 10:00 12/02/17 09:13 Flomax PO 0.4 mg DAILY [facility] Administration Zinc Sulfate 220 mg 12/02/17 10:00 Zinc Sulfate 220 Mg Cap PO DAILY ABHIJEET - Patient Studies Lab Studies: Microbiology Studies 12/01/17 17:52 Gram Stain - Final Trachasp 11/26/17 17:31 Blood Culture - Final Blood NO GROWTH AFTER 5 DAYS Gram Stain - Final TEST NOT PERFORMED 11/26/17 17:08 Blood Culture - Final Blood NO GROWTH AFTER 5 DAYS Gram Stain - Final TEST NOT PERFORMED Lab Studies 12/02/17 12/02/17 12/02/17 Range/Units 06:32 06:32 06:32 WBC 11.2 H (4.8-10.8) K/uL RBC 3.77 L (4.40-5.90) Mil/uL Hgb 11.0 L (12.0-18.0) g/dL Hct 32.3 L (35.0-51.0) % MCV 85.7 (80.0-94.0) fL MCH 29.1 (27.0-31.0) pg MCHC 34.0 (33.0-37.0) g/dL RDW 16.8 H (11.5-14.5) % Plt Count 193 (130-400) K/uL MPV 8.7 (7.2-11.7) fL Neut % (Auto) 78.2 H (50.0-75.0) % Lymph % (Auto) 9.1 L (20.0-40.0) % [place] % (Auto) 11.9 H (0.0-10.0) % Eos % (Auto) 0.6 (0.0-4.0) % Baso % (Auto) 0.2 (0.0-2.0) % Neut # (Auto) 8.8 H (1.8-7.0) K/uL Lymph # (Auto) 1.0 (1.0-4.3) K/uL [place] # (Auto) 1.3 H (0.0-0.8) K/uL Eos # (Auto) 0.1 (0.0-0.7) K/uL Baso # (Auto) 0.0 (0.0-0.2) K/uL Neutrophils % (Manual) 79 H (50-75) % Band Neutrophils % 2 (0-2) % Lymphocytes % (Manual) 8 L (20-40) % Monocytes % (Manual) 11 H (0-10) % Metamyelocytes % (0-0) % Platelet Estimate Normal (NORMAL) Anisocytosis (manual) Slight Target Cells Slight D-Dimer, Quantitative (0-243) ng/mlDDU Puncture Site pCO2 (35-45) mm/Hg pO2 (80-100) mm/Hg HCO3 (21-28) mmol/L ABG pH (7.35-7.45) ABG Total CO2 (22-28) mmol/L ABG O2 Saturation (95-98) % ABG Base Excess (-2.0-3.0) mmol/L ABG Hemoglobin (11.7-17.4) g/dL ABG Carboxyhemoglobin (0.5-1.5) % POC ABG HHb (Measured) (0.0-5.0) % ABG Methemoglobin (0.0-3.0) % Oscar Test ABG Potassium (3.6-5.2) mmol/L A-a O2 Difference mm/Hg Respiratory Index Hgb O2 Saturation (95.0-98.0) % Glucose (75-110) mg/dl Lactate (0.7-2.1) mmol/L Vent Mode Mechanical Rate FiO2 % Tidal Volume PEEP Sodium 147 (132-148) mmol/L Potassium 3.7 (3.6-5.2) mmol/L Chloride 114 H (98-107) mmol/L Carbon Dioxide 29 (22-30) mmol/L Anion Gap 7 L (10-20) BUN 38 H (9-20) mg/dL Creatinine 1.0 (0.8-1.5) mg/dL Est GFR ( Amer) > 60 Est GFR (Non-Af Amer) > 60 Random Glucose 120 H (75-110) mg/dL Calcium 7.2 L (8.6-10.4) mg/dl Phosphorus 0.9 L* (2.5-4.5) mg/dL Magnesium 2.6 H (1.6-2.3) mg/dL Total Bilirubin 0.7 (0.2-1.3) mg/dL AST 19 (17-59) U/L ALT 24 (21-72) U/L Alkaline Phosphatase 67 (38-126) U/L Total Creatine Kinase 47 L (55-170) U/L CK-MB (Mass) 0.36 (0.0-3.38) ng/mL Troponin I < 0.0120 (0.00-0.120) ng/mL Total Protein 5.7 L (6.3-8.3) g/dL Albumin 2.5 L (3.5-5.0) g/dL Globulin 3.2 (2.2-3.9) gm/dL Albumin/Globulin Ratio 0.8 L (1.0-2.1) Procalcitonin (0.19-0.49) NG/ML Arterial Blood Potassium (3.6-5.2) mmol/L Vancomycin Trough 15.6 H (5.0-10.0) ug/mL 12/02/17 12/01/17 12/01/17 Range/Units 04:57 21:57 21:55 WBC (4.8-10.8) K/uL RBC (4.40-5.90) Mil/uL Hgb (12.0-18.0) g/dL Hct (35.0-51.0) % MCV (80.0-94.0) fL MCH (27.0-31.0) pg MCHC (33.0-37.0) g/dL RDW (11.5-14.5) % Plt Count (130-400) K/uL MPV (7.2-11.7) fL Neut % (Auto) (50.0-75.0) % Lymph % (Auto) (20.0-40.0) % [place] % (Auto) (0.0-10.0) % Eos % (Auto) (0.0-4.0) % Baso % (Auto) (0.0-2.0) % Neut # (Auto) (1.8-7.0) K/uL Lymph # (Auto) (1.0-4.3) K/uL [place] # (Auto) (0.0-0.8) K/uL Eos # (Auto) (0.0-0.7) K/uL Baso # (Auto) (0.0-0.2) K/uL Neutrophils % (Manual) (50-75) % Band Neutrophils % (0-2) % Lymphocytes % (Manual) (20-40) % Monocytes % (Manual) (0-10) % Metamyelocytes % (0-0) % Platelet Estimate (NORMAL) Anisocytosis (manual) Target Cells D-Dimer, Quantitative (0-243) ng/mlDDU Puncture Site Rr Rra pCO2 42 57 H (35-45) mm/Hg pO2 48 L 128 H (80-100) mm/Hg HCO3 29.6 H 31.6 H (21-28) mmol/L ABG pH 7.47 H 7.40 (7.35-7.45) ABG Total CO2 31.9 H 37.0 H (22-28) mmol/L ABG O2 Saturation 90.9 L 98.3 H (95-98) % ABG Base Excess 6.3 H 8.5 H (-2.0-3.0) mmol/L ABG Hemoglobin 11.6 L (11.7-17.4) g/dL ABG Carboxyhemoglobin 1.8 H (0.5-1.5) % POC ABG HHb (Measured) 8.8 H (0.0-5.0) % ABG Methemoglobin 1.0 (0.0-3.0) % Oscar Test Pos Pos ABG Potassium 4.3 (3.6-5.2) mmol/L A-a O2 Difference 399.0 514.0 mm/Hg Respiratory Index 8.3 4.0 Hgb O2 Saturation 88.4 L (95.0-98.0) % Glucose 110 (75-110) mg/dl Lactate 0.9 (0.7-2.1) mmol/L Vent Mode Prvc Prvc Mechanical Rate 16 16 FiO2 70.0 100.0 % Tidal Volume 500 500 PEEP 5 5 Sodium 150.0 H (132-148) mmol/L Potassium (3.6-5.2) mmol/L Chloride 117.0 H (98-107) mmol/L Carbon Dioxide (22-30) mmol/L Anion Gap (10-20) BUN (9-20) mg/dL Creatinine (0.8-1.5) mg/dL Est GFR ( Amer) Est GFR (Non-Af Amer) Random Glucose (75-110) mg/dL Calcium (8.6-10.4) mg/dl Phosphorus (2.5-4.5) mg/dL Magnesium (1.6-2.3) mg/dL Total Bilirubin (0.2-1.3) mg/dL AST (17-59) U/L ALT (21-72) U/L Alkaline Phosphatase (38-126) U/L Total Creatine Kinase (55-170) U/L CK-MB (Mass) (0.0-3.38) ng/mL Troponin I (0.00-0.120) ng/mL Total Protein (6.3-8.3) g/dL Albumin (3.5-5.0) g/dL Globulin (2.2-3.9) gm/dL Albumin/Globulin Ratio (1.0-2.1) Procalcitonin 1.24 H (0.19-0.49) NG/ML Arterial Blood Potassium 4.3 (3.6-5.2) mmol/L Vancomycin Trough (5.0-10.0) ug/mL 12/01/17 12/01/17 12/01/17 Range/Units 21:45 21:45 21:45 WBC 12.2 H (4.8-10.8) K/uL RBC 4.04 L (4.40-5.90) Mil/uL Hgb 11.6 L (12.0-18.0) g/dL Hct 34.9 L (35.0-51.0) % MCV 86.5 (80.0-94.0) fL MCH 28.8 (27.0-31.0) pg MCHC 33.3 (33.0-37.0) g/dL RDW 16.6 H (11.5-14.5) % Plt Count 202 (130-400) K/uL MPV 8.4 (7.2-11.7) fL Neut % (Auto) 80.4 H (50.0-75.0) % Lymph % (Auto) 6.6 L (20.0-40.0) % [place] % (Auto) 11.6 H (0.0-10.0) % Eos % (Auto) 1.0 (0.0-4.0) % Baso % (Auto) 0.4 (0.0-2.0) % Neut # (Auto) 9.8 H (1.8-7.0) K/uL Lymph # (Auto) 0.8 L (1.0-4.3) K/uL [place] # (Auto) 1.4 H (0.0-0.8) K/uL Eos # (Auto) 0.1 (0.0-0.7) K/uL Baso # (Auto) 0.0 (0.0-0.2) K/uL Neutrophils % (Manual) 74 (50-75) % Band Neutrophils % 1 (0-2) % Lymphocytes % (Manual) 8 L (20-40) % Monocytes % (Manual) 15 H (0-10) % Metamyelocytes % 2 H (0-0) % Platelet Estimate Normal (NORMAL) Anisocytosis (manual) Target Cells D-Dimer, Quantitative 3875 H (0-243) ng/mlDDU Puncture Site pCO2 (35-45) mm/Hg pO2 (80-100) mm/Hg HCO3 (21-28) mmol/L ABG pH (7.35-7.45) ABG Total CO2 (22-28) mmol/L ABG O2 Saturation (95-98) % ABG Base Excess (-2.0-3.0) mmol/L ABG Hemoglobin (11.7-17.4) g/dL ABG Carboxyhemoglobin (0.5-1.5) % POC ABG HHb (Measured) (0.0-5.0) % ABG Methemoglobin (0.0-3.0) % Oscar Test ABG Potassium (3.6-5.2) mmol/L A-a O2 Difference mm/Hg Respiratory Index Hgb O2 Saturation (95.0-98.0) % Glucose (75-110) mg/dl Lactate (0.7-2.1) mmol/L Vent Mode Mechanical Rate FiO2 % Tidal Volume PEEP Sodium 146 (132-148) mmol/L Potassium 4.4 (3.6-5.2) mmol/L Chloride 110 H (98-107) mmol/L Carbon Dioxide 34 H (22-30) mmol/L Anion Gap 6 L (10-20) BUN 45 H (9-20) mg/dL Creatinine 1.2 (0.8-1.5) mg/dL Est GFR ( Amer) > 60 Est GFR (Non-Af Amer) 60 Random Glucose 111 H (75-110) mg/dL Calcium 8.0 L (8.6-10.4) mg/dl Phosphorus (2.5-4.5) mg/dL Magnesium 3.0 H (1.6-2.3) mg/dL Total Bilirubin 0.6 (0.2-1.3) mg/dL AST 19 (17-59) U/L ALT 29 (21-72) U/L Alkaline Phosphatase 74 (38-126) U/L Total Creatine Kinase (55-170) U/L CK-MB (Mass) (0.0-3.38) ng/mL Troponin I (0.00-0.120) ng/mL Total Protein 6.3 (6.3-8.3) g/dL Albumin 2.8 L (3.5-5.0) g/dL Globulin 3.5 (2.2-3.9) gm/dL Albumin/Globulin Ratio 0.8 L (1.0-2.1) Procalcitonin (0.19-0.49) NG/ML Arterial Blood Potassium (3.6-5.2) mmol/L Vancomycin Trough (5.0-10.0) ug/mL 12/01/17 Range/Units 13:15 WBC (4.8-10.8) K/uL RBC (4.40-5.90) Mil/uL Hgb (12.0-18.0) g/dL Hct (35.0-51.0) % MCV (80.0-94.0) fL MCH (27.0-31.0) pg MCHC (33.0-37.0) g/dL RDW (11.5-14.5) % Plt Count (130-400) K/uL MPV (7.2-11.7) fL Neut % (Auto) (50.0-75.0) % Lymph % (Auto) (20.0-40.0) % [place] % (Auto) (0.0-10.0) % Eos % (Auto) (0.0-4.0) % Baso % (Auto) (0.0-2.0) % Neut # (Auto) (1.8-7.0) K/uL Lymph # (Auto) (1.0-4.3) K/uL [place] # (Auto) (0.0-0.8) K/uL Eos # (Auto) (0.0-0.7) K/uL Baso # (Auto) (0.0-0.2) K/uL Neutrophils % (Manual) (50-75) % Band Neutrophils % (0-2) % Lymphocytes % (Manual) (20-40) % Monocytes % (Manual) (0-10) % Metamyelocytes % (0-0) % Platelet Estimate (NORMAL) Anisocytosis (manual) Target Cells D-Dimer, Quantitative (0-243) ng/mlDDU Puncture Site pCO2 (35-45) mm/Hg pO2 (80-100) mm/Hg HCO3 (21-28) mmol/L ABG pH (7.35-7.45) ABG Total CO2 (22-28) mmol/L ABG O2 Saturation (95-98) % ABG Base Excess (-2.0-3.0) mmol/L ABG Hemoglobin (11.7-17.4) g/dL ABG Carboxyhemoglobin (0.5-1.5) % POC ABG HHb (Measured) (0.0-5.0) % ABG Methemoglobin (0.0-3.0) % Oscar Test ABG Potassium (3.6-5.2) mmol/L A-a O2 Difference mm/Hg Respiratory Index Hgb O2 Saturation (95.0-98.0) % Glucose (75-110) mg/dl Lactate (0.7-2.1) mmol/L Vent Mode Mechanical Rate FiO2 % Tidal Volume PEEP Sodium (132-148) mmol/L Potassium (3.6-5.2) mmol/L Chloride (98-107) mmol/L Carbon Dioxide (22-30) mmol/L Anion Gap (10-20) BUN (9-20) mg/dL Creatinine (0.8-1.5) mg/dL Est GFR ( Amer) Est GFR (Non-Af Amer) Random Glucose (75-110) mg/dL Calcium (8.6-10.4) mg/dl Phosphorus (2.5-4.5) mg/dL Magnesium (1.6-2.3) mg/dL Total Bilirubin (0.2-1.3) mg/dL AST (17-59) U/L ALT (21-72) U/L Alkaline Phosphatase (38-126) U/L Total Creatine Kinase (55-170) U/L CK-MB (Mass) (0.0-3.38) ng/mL Troponin I (0.00-0.120) ng/mL Total Protein (6.3-8.3) g/dL Albumin (3.5-5.0) g/dL Globulin (2.2-3.9) gm/dL Albumin/Globulin Ratio (1.0-2.1) Procalcitonin 1.62 H (0.19-0.49) NG/ML Arterial Blood Potassium (3.6-5.2) mmol/L Vancomycin Trough (5.0-10.0) ug/mL Laboratory Results - last 24 hr 12/01/17 12/01/17 12/01/17 13:15 21:45 21:45 WBC 12.2 H RBC 4.04 L Hgb 11.6 L Hct 34.9 L MCV 86.5 MCH 28.8 MCHC 33.3 RDW 16.6 H Plt Count 202 MPV 8.4 Neut % (Auto) 80.4 H Lymph % (Auto) 6.6 L [place] % (Auto) 11.6 H Eos % (Auto) 1.0 Baso % (Auto) 0.4 Neut # (Auto) 9.8 H Lymph # (Auto) 0.8 L [place] # (Auto) 1.4 H Eos # (Auto) 0.1 Baso # (Auto) 0.0 Neutrophils % (Manual) 74 Band Neutrophils % 1 Lymphocytes % (Manual) 8 L Monocytes % (Manual) 15 H Metamyelocytes % 2 H Platelet Estimate Normal Anisocytosis (manual) Target Cells D-Dimer, Quantitative Puncture Site pCO2 pO2 HCO3 ABG pH ABG Total CO2 ABG O2 Saturation ABG Base Excess ABG Hemoglobin ABG Carboxyhemoglobin POC ABG HHb (Measured) ABG Methemoglobin Oscar Test ABG Potassium A-a O2 Difference Respiratory Index Hgb O2 Saturation Glucose Lactate Vent Mode Mechanical Rate FiO2 Tidal Volume PEEP Sodium 146 Potassium 4.4 Chloride 110 H Carbon Dioxide 34 H Anion Gap 6 L BUN 45 H Creatinine 1.2 Est GFR ( Amer) > 60 Est GFR (Non-Af Amer) 60 Random Glucose 111 H Calcium 8.0 L Phosphorus Magnesium 3.0 H Total Bilirubin 0.6 AST 19 ALT 29 Alkaline Phosphatase 74 Total Creatine Kinase CK-MB (Mass) Troponin I Total Protein 6.3 Albumin 2.8 L Globulin 3.5 Albumin/Globulin Ratio 0.8 L Procalcitonin 1.62 H Arterial Blood Potassium Vancomycin Trough 12/01/17 12/01/17 12/01/17 21:45 21:55 21:57 WBC RBC Hgb Hct MCV MCH MCHC RDW Plt Count MPV Neut % (Auto) Lymph % (Auto) [place] % (Auto) Eos % (Auto) Baso % (Auto) Neut # (Auto) Lymph # (Auto) [place] # (Auto) Eos # (Auto) Baso # (Auto) Neutrophils % (Manual) Band Neutrophils % Lymphocytes % (Manual) Monocytes % (Manual) Metamyelocytes % Platelet Estimate Anisocytosis (manual) Target Cells D-Dimer, Quantitative 3875 H Puncture Site Rra pCO2 57 H pO2 128 H HCO3 31.6 H ABG pH 7.40 ABG Total CO2 37.0 H ABG O2 Saturation 98.3 H ABG Base Excess 8.5 H ABG Hemoglobin ABG Carboxyhemoglobin POC ABG HHb (Measured) ABG Methemoglobin Oscar Test Pos ABG Potassium 4.3 A-a O2 Difference 514.0 Respiratory Index 4.0 Hgb O2 Saturation Glucose 110 Lactate 0.9 Vent Mode Prvc Mechanical Rate 16 FiO2 100.0 Tidal Volume 500 PEEP 5 Sodium 150.0 H Potassium Chloride 117.0 H Carbon Dioxide Anion Gap BUN Creatinine Est GFR ( Amer) Est GFR (Non-Af Amer) Random Glucose Calcium Phosphorus Magnesium Total Bilirubin AST ALT Alkaline Phosphatase Total Creatine Kinase CK-MB (Mass) Troponin I Total Protein Albumin Globulin Albumin/Globulin Ratio Procalcitonin 1.24 H Arterial Blood Potassium 4.3 Vancomycin Trough 12/02/17 12/02/17 12/02/17 04:57 06:32 06:32 WBC 11.2 H RBC 3.77 L Hgb 11.0 L Hct 32.3 L MCV 85.7 MCH 29.1 MCHC 34.0 RDW 16.8 H Plt Count 193 MPV 8.7 Neut % (Auto) 78.2 H Lymph % (Auto) 9.1 L [place] % (Auto) 11.9 H Eos % (Auto) 0.6 Baso % (Auto) 0.2 Neut # (Auto) 8.8 H Lymph # (Auto) 1.0 [place] # (Auto) 1.3 H Eos # (Auto) 0.1 Baso # (Auto) 0.0 Neutrophils % (Manual) 79 H Band Neutrophils % 2 Lymphocytes % (Manual) 8 L Monocytes % (Manual) 11 H Metamyelocytes % Platelet Estimate Normal Anisocytosis (manual) Slight Target Cells Slight D-Dimer, Quantitative Puncture Site Rr pCO2 42 pO2 48 L HCO3 29.6 H ABG pH 7.47 H ABG Total CO2 31.9 H ABG O2 Saturation 90.9 L ABG Base Excess 6.3 H ABG Hemoglobin 11.6 L ABG Carboxyhemoglobin 1.8 H POC ABG HHb (Measured) 8.8 H ABG Methemoglobin 1.0 Oscar Test Pos ABG Potassium A-a O2 Difference 399.0 Respiratory Index 8.3 Hgb O2 Saturation 88.4 L Glucose Lactate Vent Mode Prvc Mechanical Rate 16 FiO2 70.0 Tidal Volume 500 PEEP 5 Sodium 147 Potassium 3.7 Chloride 114 H Carbon Dioxide 29 Anion Gap 7 L BUN 38 H Creatinine 1.0 Est GFR ( Amer) > 60 Est GFR (Non-Af Amer) > 60 Random Glucose 120 H Calcium 7.2 L Phosphorus 0.9 L* Magnesium 2.6 H Total Bilirubin 0.7 AST 19 ALT 24 Alkaline Phosphatase 67 Total Creatine Kinase 47 L CK-MB (Mass) 0.36 Troponin I < 0.0120 Total Protein 5.7 L Albumin 2.5 L Globulin 3.2 Albumin/Globulin Ratio 0.8 L Procalcitonin Arterial Blood Potassium Vancomycin Trough 12/02/17 06:32 WBC RBC Hgb Hct MCV MCH MCHC RDW Plt Count MPV Neut % (Auto) Lymph % (Auto) [place] % (Auto) Eos % (Auto) Baso % (Auto) Neut # (Auto) Lymph # (Auto) [place] # (Auto) Eos # (Auto) Baso # (Auto) Neutrophils % (Manual) Band Neutrophils % Lymphocytes % (Manual) Monocytes % (Manual) Metamyelocytes % Platelet Estimate Anisocytosis (manual) Target Cells D-Dimer, Quantitative Puncture Site pCO2 pO2 HCO3 ABG pH ABG Total CO2 ABG O2 Saturation ABG Base Excess ABG Hemoglobin ABG Carboxyhemoglobin POC ABG HHb (Measured) ABG Methemoglobin Oscar Test ABG Potassium A-a O2 Difference Respiratory Index Hgb O2 Saturation Glucose Lactate Vent Mode Mechanical Rate FiO2 Tidal Volume PEEP Sodium Potassium Chloride Carbon Dioxide Anion Gap BUN Creatinine Est GFR ( Amer) Est GFR (Non-Af Amer) Random Glucose Calcium Phosphorus Magnesium Total Bilirubin AST ALT Alkaline Phosphatase Total Creatine Kinase CK-MB (Mass) Troponin I Total Protein Albumin Globulin Albumin/Globulin Ratio Procalcitonin Arterial Blood Potassium Vancomycin Trough 15.6 H EKG/Cardiology Studies: Cardiology / EKG Studies 12/02/17 09:56 ELECTROCARDIOGRAM Routine Comment: Mode Of Transportation: Reason For Exam: intermittent Bradycardia Fingerstick Blood Sugar Results: 133 Critical Care Progress Note - Nutrition Nutrition: Nutrition Category Date Time Status Heart Healthy Diet [DIET] Diets 11/30/17 Lunch Active Assessment/Plan - Assessment and Plan (Free Text) Assessment: Psych: no acute issues Neuro: prior CVA diprivan for sedaton Cardio: HTN Bradycardia this am - started dopamine Pulm: Asthma, COPD intubated - FIO2 70%, RR 16, Tv 500, PEEP 5, failed CPAP, back on PRVC, will try again in AM septic shock possible 2/2 pneumonia vanco 1gm/meropenem 1gm duoneb hypoxemia this am - venous doppler, lovenox GI: no acute issues Renal/Uro: BPH continue flomax 0.4mg QD Endo: no acute issues Electrolytes: hypokalemia kdur 15mmol ID: Septic shock (Mangia) vanc 1gm dopamine 2mcg/kg/min Zosyn Skin: wound culture Vitamin C zinc sulfate PPx: pepcid 20mg QD lovenox 80mg Q12hr <NunezVladislav M - Last Filed: 12/02/17 18:00> CCU Subjective - Physician Review Critical Care Time Spent (in minutes): 45 CCU Objective - Vital Signs / Intake & Output Vital Signs (Last 4 hours): Vital Signs Pulse Resp BP Pulse Ox 12/02/17 17:20 85 16 96 12/02/17 17:10 92 H 15 85 L 12/02/17 17:00 60 15 93 L 12/02/17 16:50 53 L 16 93 L 12/02/17 16:46 57 L 16 121/71 94 L 12/02/17 16:40 59 L 17 94 L 12/02/17 16:30 76 17 12/02/17 16:20 57 L 16 98 12/02/17 16:10 74 17 100 12/02/17 16:00 81 19 98 12/02/17 15:50 77 14 98 12/02/17 15:47 87 16 117/77 99 12/02/17 15:40 81 24 95 12/02/17 15:30 76 20 83 L 12/02/17 15:20 80 19 98 12/02/17 15:10 81 20 88 L 12/02/17 15:00 82 25 H 86 L 12/02/17 14:50 84 13 100 12/02/17 14:46 81 26 H 153/138 H 12/02/17 14:40 81 24 94 L 12/02/17 14:30 71 19 98 12/02/17 14:20 61 16 96 12/02/17 14:10 59 L 16 96 12/02/17 14:00 55 L 16 96 Intake and Output (Last 8hrs): Intake & Output 12/02/17 12/02/17 12/02/17 06:59 14:59 22:59 Intake Total 1345.0 646.6 206.4 Output Total 670 300 240 Balance 675.0 346.6 -33.6 Weight 178 lb 9.191 oz Intake: IV 50 Intake, IV Amount 1295.0 606.6 146.4 Right Midline 1225 47.6 20.4 Right Midline distal port 70.0 559 126 Tube Feeding 40 60 Output: Urine 670 300 240 Urethral (Singh) 670 300 240 Emesis 0 0 Other: # Bowel Movements 0 0 - Medications Active Medications: Active Medications Generic Name Dose Route Start Last Admin Trade Name Freq PRN Reason Stop Dose Admin Albuterol/Ipratropium 3 ml 11/29/17 14:47 Duoneb 3 Mg/0.5 Mg (3 Ml) Ud INH RQ6 PRN Shortness of Breath Ascorbic Acid 250 mg 12/02/17 10:00 12/02/17 11:00 Vitamin C 250 Mg Tab PO 250 mg DAILY ABHIJEET Administration Enoxaparin Sodium 80 mg 12/02/17 05:53 12/02/17 09:49 Lovenox SC 80 mg Q12 ABHIJEET Administration Famotidine 20 mg 11/27/17 10:00 12/02/17 09:13 Pepcid PO 20 mg DAILY ABHIJEET Administration Propofol 1,000 mg in 100 mls @ 2.708 mls/hr 12/01/17 10:43 12/01/17 21:05 Diprivan IV 0 mcg/kg/min .Q24H PRN 0 mls/hr TITRATE PER MD ORDER Titration Protocol 5 MCG/KG/MIN Vancomycin HCl 1 gm/ Sodium 200 mls @ 166.7 mls/hr 12/01/17 16:00 12/01/17 15 :36 Chloride IVPB 166.7 mls/hr Q24H ABHIJEET Administration Dopamine HCl/Dextrose 400 mg in 250 mls @ 6.765 mls/hr 12/01/17 22:49 04:13 Dopamine 400mg/250ml D5w IV 2.01 mcg/kg/min .Q24H PRN 6.8 mls/hr TITRATE PER MD ORDER Titration Protocol 2 MCG/KG/MIN Piperacillin Sod/Tazobactam 100 mls @ 200 mls/hr 12/02/17 10:00 12/02/17 11: 00 Sod 3.375 gm/ Sodium Chloride IVPB 200 mls/hr Q6H ABHIJEET Administration Sodium Chloride 1,000 mls @ 42 mls/hr 12/02/17 09:40 12/02/17 11:00 Sodium Chloride 0.9% IV 42 mls/hr .[id number] ABHIJEET Administration Potassium Phosphate 15 mmole/ 255 mls @ 63 mls/hr 12/02/17 14:00 Sodium Chloride IV 12/02/17 18:02 ONCE ONE Insulin Aspart 0 unit 12/02/17 11:30 12/02/17 11:30 Novolog SC Not Given ACHS [facility] Protocol Multivitamins/Vitamin C 5 ml 12/02/17 10:00 12/02/17 11:00 Multi-Delyn Liquid PO 5 ml DAILY ABHIJEET Administration Tamsulosin HCl 0.4 mg 11/27/17 10:00 12/02/17 09:13 Flomax PO 0.4 mg DAILY ABHIJEET Administration Zinc Sulfate 220 mg 12/02/17 10:00 12/02/17 11:00 Zinc Sulfate 220 Mg Cap PO 220 mg DAILY ABHIJEET Administration - Patient Studies Lab Studies: Microbiology Studies 12/01/17 17:52 Gram Stain - Final Trachasp 11/26/17 17:31 Blood Culture - Final Blood NO GROWTH AFTER 5 DAYS Gram Stain - Final TEST NOT PERFORMED 11/26/17 17:08 Blood Culture - Final Blood NO GROWTH AFTER 5 DAYS Gram Stain - Final TEST NOT PERFORMED Lab Studies 12/02/17 12/02/17 12/02/17 Range/Units 16:15 11:39 06:32 WBC (4.8-10.8) K/uL RBC (4.40-5.90) Mil/uL Hgb (12.0-18.0) g/dL Hct (35.0-51.0) % MCV (80.0-94.0) fL MCH (27.0-31.0) pg MCHC (33.0-37.0) g/dL RDW (11.5-14.5) % Plt Count (130-400) K/uL MPV (7.2-11.7) fL Neut % (Auto) (50.0-75.0) % Lymph % (Auto) (20.0-40.0) % [place] % (Auto) (0.0-10.0) % Eos % (Auto) (0.0-4.0) % Baso % (Auto) (0.0-2.0) % Neut # (Auto) (1.8-7.0) K/uL Lymph # (Auto) (1.0-4.3) K/uL [place] # (Auto) (0.0-0.8) K/uL Eos # (Auto) (0.0-0.7) K/uL Baso # (Auto) (0.0-0.2) K/uL Neutrophils % (Manual) (50-75) % Band Neutrophils % (0-2) % Lymphocytes % (Manual) (20-40) % Monocytes % (Manual) (0-10) % Metamyelocytes % (0-0) % Platelet Estimate (NORMAL) Anisocytosis (manual) Target Cells D-Dimer, Quantitative (0-243) ng/mlDDU Puncture Site pCO2 (35-45) mm/Hg pO2 (80-100) mm/Hg HCO3 (21-28) mmol/L ABG pH (7.35-7.45) ABG Total CO2 (22-28) mmol/L ABG O2 Saturation (95-98) % ABG Base Excess (-2.0-3.0) mmol/L ABG Hemoglobin (11.7-17.4) g/dL ABG Carboxyhemoglobin (0.5-1.5) % POC ABG HHb (Measured) (0.0-5.0) % ABG Methemoglobin (0.0-3.0) % Oscar Test ABG Potassium (3.6-5.2) mmol/L A-a O2 Difference mm/Hg Respiratory Index Hgb O2 Saturation (95.0-98.0) % Glucose (75-110) mg/dl Lactate (0.7-2.1) mmol/L Vent Mode Mechanical Rate FiO2 % Tidal Volume PEEP Sodium (132-148) mmol/L Potassium (3.6-5.2) mmol/L Chloride (98-107) mmol/L Carbon Dioxide (22-30) mmol/L Anion Gap (10-20) BUN (9-20) mg/dL Creatinine (0.8-1.5) mg/dL Est GFR ( Amer) Est GFR (Non-Af Amer) POC Glucose (mg/dL) 92 126 H (65-110) mg/dL Random Glucose (75-110) mg/dL Calcium (8.6-10.4) mg/dl Phosphorus (2.5-4.5) mg/dL Magnesium (1.6-2.3) mg/dL Total Bilirubin (0.2-1.3) mg/dL AST (17-59) U/L ALT (21-72) U/L Alkaline Phosphatase (38-126) U/L Total Creatine Kinase (55-170) U/L CK-MB (Mass) (0.0-3.38) ng/mL Troponin I (0.00-0.120) ng/mL Total Protein (6.3-8.3) g/dL Albumin (3.5-5.0) g/dL Globulin (2.2-3.9) gm/dL Albumin/Globulin Ratio (1.0-2.1) Procalcitonin (0.19-0.49) NG/ML Arterial Blood Potassium (3.6-5.2) mmol/L Vancomycin Trough 15.6 H (5.0-10.0) ug/mL 12/02/17 12/02/17 12/02/17 Range/Units 06:32 06:32 04:57 WBC 11.2 H (4.8-10.8) K/uL RBC 3.77 L (4.40-5.90) Mil/uL Hgb 11.0 L (12.0-18.0) g/dL Hct 32.3 L (35.0-51.0) % MCV 85.7 (80.0-94.0) fL MCH 29.1 (27.0-31.0) pg MCHC 34.0 (33.0-37.0) g/dL RDW 16.8 H (11.5-14.5) % Plt Count 193 (130-400) K/uL MPV 8.7 (7.2-11.7) fL Neut % (Auto) 78.2 H (50.0-75.0) % Lymph % (Auto) 9.1 L (20.0-40.0) % [place] % (Auto) 11.9 H (0.0-10.0) % Eos % (Auto) 0.6 (0.0-4.0) % Baso % (Auto) 0.2 (0.0-2.0) % Neut # (Auto) 8.8 H (1.8-7.0) K/uL Lymph # (Auto) 1.0 (1.0-4.3) K/uL [place] # (Auto) 1.3 H (0.0-0.8) K/uL Eos # (Auto) 0.1 (0.0-0.7) K/uL Baso # (Auto) 0.0 (0.0-0.2) K/uL Neutrophils % (Manual) 79 H (50-75) % Band Neutrophils % 2 (0-2) % Lymphocytes % (Manual) 8 L (20-40) % Monocytes % (Manual) 11 H (0-10) % Metamyelocytes % (0-0) % Platelet Estimate Normal (NORMAL) Anisocytosis (manual) Slight Target Cells Slight D-Dimer, Quantitative (0-243) ng/mlDDU Puncture Site Rr pCO2 42 (35-45) mm/Hg pO2 48 L (80-100) mm/Hg HCO3 29.6 H (21-28) mmol/L ABG pH 7.47 H (7.35-7.45) ABG Total CO2 31.9 H (22-28) mmol/L ABG O2 Saturation 90.9 L (95-98) % ABG Base Excess 6.3 H (-2.0-3.0) mmol/L ABG Hemoglobin 11.6 L (11.7-17.4) g/dL ABG Carboxyhemoglobin 1.8 H (0.5-1.5) % POC ABG HHb (Measured) 8.8 H (0.0-5.0) % ABG Methemoglobin 1.0 (0.0-3.0) % Oscar Test Pos ABG Potassium (3.6-5.2) mmol/L A-a O2 Difference 399.0 mm/Hg Respiratory Index 8.3 Hgb O2 Saturation 88.4 L (95.0-98.0) % Glucose (75-110) mg/dl Lactate (0.7-2.1) mmol/L Vent Mode Prvc Mechanical Rate 16 FiO2 70.0 % Tidal Volume 500 PEEP 5 Sodium 147 (132-148) mmol/L Potassium 3.7 (3.6-5.2) mmol/L Chloride 114 H (98-107) mmol/L Carbon Dioxide 29 (22-30) mmol/L Anion Gap 7 L (10-20) BUN 38 H (9-20) mg/dL Creatinine 1.0 (0.8-1.5) mg/dL Est GFR ( Amer) > 60 Est GFR (Non-Af Amer) > 60 POC Glucose (mg/dL) (65-110) mg/dL Random Glucose 120 H (75-110) mg/dL Calcium 7.2 L (8.6-10.4) mg/dl Phosphorus 0.9 L* (2.5-4.5) mg/dL Magnesium 2.6 H (1.6-2.3) mg/dL Total Bilirubin 0.7 (0.2-1.3) mg/dL AST 19 (17-59) U/L ALT 24 (21-72) U/L Alkaline Phosphatase 67 (38-126) U/L Total Creatine Kinase 47 L (55-170) U/L CK-MB (Mass) 0.36 (0.0-3.38) ng/mL Troponin I < 0.0120 (0.00-0.120) ng/mL Total Protein 5.7 L (6.3-8.3) g/dL Albumin 2.5 L (3.5-5.0) g/dL Globulin 3.2 (2.2-3.9) gm/dL Albumin/Globulin Ratio 0.8 L (1.0-2.1) Procalcitonin (0.19-0.49) NG/ML Arterial Blood Potassium (3.6-5.2) mmol/L Vancomycin Trough (5.0-10.0) ug/mL 12/01/17 12/01/17 12/01/17 Range/Units 21:57 21:55 21:45 WBC (4.8-10.8) K/uL RBC (4.40-5.90) Mil/uL Hgb (12.0-18.0) g/dL Hct (35.0-51.0) % MCV (80.0-94.0) fL MCH (27.0-31.0) pg MCHC (33.0-37.0) g/dL RDW (11.5-14.5) % Plt Count (130-400) K/uL MPV (7.2-11.7) fL Neut % (Auto) (50.0-75.0) % Lymph % (Auto) (20.0-40.0) % [place] % (Auto) (0.0-10.0) % Eos % (Auto) (0.0-4.0) % Baso % (Auto) (0.0-2.0) % Neut # (Auto) (1.8-7.0) K/uL Lymph # (Auto) (1.0-4.3) K/uL [place] # (Auto) (0.0-0.8) K/uL Eos # (Auto) (0.0-0.7) K/uL Baso # (Auto) (0.0-0.2) K/uL Neutrophils % (Manual) (50-75) % Band Neutrophils % (0-2) % Lymphocytes % (Manual) (20-40) % Monocytes % (Manual) (0-10) % Metamyelocytes % (0-0) % Platelet Estimate (NORMAL) Anisocytosis (manual) Target Cells D-Dimer, Quantitative 3875 H (0-243) ng/mlDDU Puncture Site Rra pCO2 57 H (35-45) mm/Hg pO2 128 H (80-100) mm/Hg HCO3 31.6 H (21-28) mmol/L ABG pH 7.40 (7.35-7.45) ABG Total CO2 37.0 H (22-28) mmol/L ABG O2 Saturation 98.3 H (95-98) % ABG Base Excess 8.5 H (-2.0-3.0) mmol/L ABG Hemoglobin (11.7-17.4) g/dL ABG Carboxyhemoglobin (0.5-1.5) % POC ABG HHb (Measured) (0.0-5.0) % ABG Methemoglobin (0.0-3.0) % Oscar Test Pos ABG Potassium 4.3 (3.6-5.2) mmol/L A-a O2 Difference 514.0 mm/Hg Respiratory Index 4.0 Hgb O2 Saturation (95.0-98.0) % Glucose 110 (75-110) mg/dl Lactate 0.9 (0.7-2.1) mmol/L Vent Mode Prvc Mechanical Rate 16 FiO2 100.0 % Tidal Volume 500 PEEP 5 Sodium 150.0 H (132-148) mmol/L Potassium (3.6-5.2) mmol/L Chloride 117.0 H (98-107) mmol/L Carbon Dioxide (22-30) mmol/L Anion Gap (10-20) BUN (9-20) mg/dL Creatinine (0.8-1.5) mg/dL Est GFR ( Amer) Est GFR (Non-Af Amer) POC Glucose (mg/dL) (65-110) mg/dL Random Glucose (75-110) mg/dL Calcium (8.6-10.4) mg/dl Phosphorus (2.5-4.5) mg/dL Magnesium (1.6-2.3) mg/dL Total Bilirubin (0.2-1.3) mg/dL AST (17-59) U/L ALT (21-72) U/L Alkaline Phosphatase (38-126) U/L Total Creatine Kinase (55-170) U/L CK-MB (Mass) (0.0-3.38) ng/mL Troponin I (0.00-0.120) ng/mL Total Protein (6.3-8.3) g/dL Albumin (3.5-5.0) g/dL Globulin (2.2-3.9) gm/dL Albumin/Globulin Ratio (1.0-2.1) Procalcitonin 1.24 H (0.19-0.49) NG/ML Arterial Blood Potassium 4.3 (3.6-5.2) mmol/L Vancomycin Trough (5.0-10.0) ug/mL 12/01/17 12/01/17 12/01/17 Range/Units 21:45 21:45 13:15 WBC 12.2 H (4.8-10.8) K/uL RBC 4.04 L (4.40-5.90) Mil/uL Hgb 11.6 L (12.0-18.0) g/dL Hct 34.9 L (35.0-51.0) % MCV 86.5 (80.0-94.0) fL MCH 28.8 (27.0-31.0) pg MCHC 33.3 (33.0-37.0) g/dL RDW 16.6 H (11.5-14.5) % Plt Count 202 (130-400) K/uL MPV 8.4 (7.2-11.7) fL Neut % (Auto) 80.4 H (50.0-75.0) % Lymph % (Auto) 6.6 L (20.0-40.0) % [place] % (Auto) 11.6 H (0.0-10.0) % Eos % (Auto) 1.0 (0.0-4.0) % Baso % (Auto) 0.4 (0.0-2.0) % Neut # (Auto) 9.8 H (1.8-7.0) K/uL Lymph # (Auto) 0.8 L (1.0-4.3) K/uL [place] # (Auto) 1.4 H (0.0-0.8) K/uL Eos # (Auto) 0.1 (0.0-0.7) K/uL Baso # (Auto) 0.0 (0.0-0.2) K/uL Neutrophils % (Manual) 74 (50-75) % Band Neutrophils % 1 (0-2) % Lymphocytes % (Manual) 8 L (20-40) % Monocytes % (Manual) 15 H (0-10) % Metamyelocytes % 2 H (0-0) % Platelet Estimate Normal (NORMAL) Anisocytosis (manual) Target Cells D-Dimer, Quantitative (0-243) ng/mlDDU Puncture Site pCO2 (35-45) mm/Hg pO2 (80-100) mm/Hg HCO3 (21-28) mmol/L ABG pH (7.35-7.45) ABG Total CO2 (22-28) mmol/L ABG O2 Saturation (95-98) % ABG Base Excess (-2.0-3.0) mmol/L ABG Hemoglobin (11.7-17.4) g/dL ABG Carboxyhemoglobin (0.5-1.5) % POC ABG HHb (Measured) (0.0-5.0) % ABG Methemoglobin (0.0-3.0) % Oscar Test ABG Potassium (3.6-5.2) mmol/L A-a O2 Difference mm/Hg Respiratory Index Hgb O2 Saturation (95.0-98.0) % Glucose (75-110) mg/dl Lactate (0.7-2.1) mmol/L Vent Mode Mechanical Rate FiO2 % Tidal Volume PEEP Sodium 146 (132-148) mmol/L Potassium 4.4 (3.6-5.2) mmol/L Chloride 110 H (98-107) mmol/L Carbon Dioxide 34 H (22-30) mmol/L Anion Gap 6 L (10-20) BUN 45 H (9-20) mg/dL Creatinine 1.2 (0.8-1.5) mg/dL Est GFR ( Amer) > 60 Est GFR (Non-Af Amer) 60 POC Glucose (mg/dL) (65-110) mg/dL Random Glucose 111 H (75-110) mg/dL Calcium 8.0 L (8.6-10.4) mg/dl Phosphorus (2.5-4.5) mg/dL Magnesium 3.0 H (1.6-2.3) mg/dL Total Bilirubin 0.6 (0.2-1.3) mg/dL AST 19 (17-59) U/L ALT 29 (21-72) U/L Alkaline Phosphatase 74 (38-126) U/L Total Creatine Kinase (55-170) U/L CK-MB (Mass) (0.0-3.38) ng/mL Troponin I (0.00-0.120) ng/mL Total Protein 6.3 (6.3-8.3) g/dL Albumin 2.8 L (3.5-5.0) g/dL Globulin 3.5 (2.2-3.9) gm/dL Albumin/Globulin Ratio 0.8 L (1.0-2.1) Procalcitonin 1.62 H (0.19-0.49) NG/ML Arterial Blood Potassium (3.6-5.2) mmol/L Vancomycin Trough (5.0-10.0) ug/mL Laboratory Results - last 24 hr 12/01/17 12/01/17 12/01/17 13:15 21:45 21:45 WBC 12.2 H RBC 4.04 L Hgb 11.6 L Hct 34.9 L MCV 86.5 MCH 28.8 MCHC 33.3 RDW 16.6 H Plt Count 202 MPV 8.4 Neut % (Auto) 80.4 H Lymph % (Auto) 6.6 L [place] % (Auto) 11.6 H Eos % (Auto) 1.0 Baso % (Auto) 0.4 Neut # (Auto) 9.8 H Lymph # (Auto) 0.8 L [place] # (Auto) 1.4 H Eos # (Auto) 0.1 Baso # (Auto) 0.0 Neutrophils % (Manual) 74 Band Neutrophils % 1 Lymphocytes % (Manual) 8 L Monocytes % (Manual) 15 H Metamyelocytes % 2 H Platelet Estimate Normal Anisocytosis (manual) Target Cells D-Dimer, Quantitative Puncture Site pCO2 pO2 HCO3 ABG pH ABG Total CO2 ABG O2 Saturation ABG Base Excess ABG Hemoglobin ABG Carboxyhemoglobin POC ABG HHb (Measured) ABG Methemoglobin Oscar Test ABG Potassium A-a O2 Difference Respiratory Index Hgb O2 Saturation Glucose Lactate Vent Mode Mechanical Rate FiO2 Tidal Volume PEEP Sodium 146 Potassium 4.4 Chloride 110 H Carbon Dioxide 34 H Anion Gap 6 L BUN 45 H Creatinine 1.2 Est GFR ( Amer) > 60 Est GFR (Non-Af Amer) 60 POC Glucose (mg/dL) Random Glucose 111 H Calcium 8.0 L Phosphorus Magnesium 3.0 H Total Bilirubin 0.6 AST 19 ALT 29 Alkaline Phosphatase 74 Total Creatine Kinase CK-MB (Mass) Troponin I Total Protein 6.3 Albumin 2.8 L Globulin 3.5 Albumin/Globulin Ratio 0.8 L Procalcitonin 1.62 H Arterial Blood Potassium Vancomycin Trough 12/01/17 12/01/17 12/01/17 21:45 21:55 21:57 WBC RBC Hgb Hct MCV MCH MCHC RDW Plt Count MPV Neut % (Auto) Lymph % (Auto) [place] % (Auto) Eos % (Auto) Baso % (Auto) Neut # (Auto) Lymph # (Auto) [place] # (Auto) Eos # (Auto) Baso # (Auto) Neutrophils % (Manual) Band Neutrophils % Lymphocytes % (Manual) Monocytes % (Manual) Metamyelocytes % Platelet Estimate Anisocytosis (manual) Target Cells D-Dimer, Quantitative 3875 H Puncture Site Rra pCO2 57 H pO2 128 H HCO3 31.6 H ABG pH 7.40 ABG Total CO2 37.0 H ABG O2 Saturation 98.3 H ABG Base Excess 8.5 H ABG Hemoglobin ABG Carboxyhemoglobin POC ABG HHb (Measured) ABG Methemoglobin Oscar Test Pos ABG Potassium 4.3 A-a O2 Difference 514.0 Respiratory Index 4.0 Hgb O2 Saturation Glucose 110 Lactate 0.9 Vent Mode Prvc Mechanical Rate 16 FiO2 100.0 Tidal Volume 500 PEEP 5 Sodium 150.0 H Potassium Chloride 117.0 H Carbon Dioxide Anion Gap BUN Creatinine Est GFR ( Amer) Est GFR (Non-Af Amer) POC Glucose (mg/dL) Random Glucose Calcium Phosphorus Magnesium Total Bilirubin AST ALT Alkaline Phosphatase Total Creatine Kinase CK-MB (Mass) Troponin I Total Protein Albumin Globulin Albumin/Globulin Ratio Procalcitonin 1.24 H Arterial Blood Potassium 4.3 Vancomycin Trough 12/02/17 12/02/17 12/02/17 04:57 06:32 06:32 WBC 11.2 H RBC 3.77 L Hgb 11.0 L Hct 32.3 L MCV 85.7 MCH 29.1 MCHC 34.0 RDW 16.8 H Plt Count 193 MPV 8.7 Neut % (Auto) 78.2 H Lymph % (Auto) 9.1 L [place] % (Auto) 11.9 H Eos % (Auto) 0.6 Baso % (Auto) 0.2 Neut # (Auto) 8.8 H Lymph # (Auto) 1.0 [place] # (Auto) 1.3 H Eos # (Auto) 0.1 Baso # (Auto) 0.0 Neutrophils % (Manual) 79 H Band Neutrophils % 2 Lymphocytes % (Manual) 8 L Monocytes % (Manual) 11 H Metamyelocytes % Platelet Estimate Normal Anisocytosis (manual) Slight Target Cells Slight D-Dimer, Quantitative Puncture Site Rr pCO2 42 pO2 48 L HCO3 29.6 H ABG pH 7.47 H ABG Total CO2 31.9 H ABG O2 Saturation 90.9 L ABG Base Excess 6.3 H ABG Hemoglobin 11.6 L ABG Carboxyhemoglobin 1.8 H POC ABG HHb (Measured) 8.8 H ABG Methemoglobin 1.0 Oscar Test Pos ABG Potassium A-a O2 Difference 399.0 Respiratory Index 8.3 Hgb O2 Saturation 88.4 L Glucose Lactate Vent Mode Prvc Mechanical Rate 16 FiO2 70.0 Tidal Volume 500 PEEP 5 Sodium 147 Potassium 3.7 Chloride 114 H Carbon Dioxide 29 Anion Gap 7 L BUN 38 H Creatinine 1.0 Est GFR ( Amer) > 60 Est GFR (Non-Af Amer) > 60 POC Glucose (mg/dL) Random Glucose 120 H Calcium 7.2 L Phosphorus 0.9 L* Magnesium 2.6 H Total Bilirubin 0.7 AST 19 ALT 24 Alkaline Phosphatase 67 Total Creatine Kinase 47 L CK-MB (Mass) 0.36 Troponin I < 0.0120 Total Protein 5.7 L Albumin 2.5 L Globulin 3.2 Albumin/Globulin Ratio 0.8 L Procalcitonin Arterial Blood Potassium Vancomycin Trough 12/02/17 12/02/17 12/02/17 06:32 11:39 16:15 WBC RBC Hgb Hct MCV MCH MCHC RDW Plt Count MPV Neut % (Auto) Lymph % (Auto) [place] % (Auto) Eos % (Auto) Baso % (Auto) Neut # (Auto) Lymph # (Auto) [place] # (Auto) Eos # (Auto) Baso # (Auto) Neutrophils % (Manual) Band Neutrophils % Lymphocytes % (Manual) Monocytes % (Manual) Metamyelocytes % Platelet Estimate Anisocytosis (manual) Target Cells D-Dimer, Quantitative Puncture Site pCO2 pO2 HCO3 ABG pH ABG Total CO2 ABG O2 Saturation ABG Base Excess ABG Hemoglobin ABG Carboxyhemoglobin POC ABG HHb (Measured) ABG Methemoglobin Oscar Test ABG Potassium A-a O2 Difference Respiratory Index Hgb O2 Saturation Glucose Lactate Vent Mode Mechanical Rate FiO2 Tidal Volume PEEP Sodium Potassium Chloride Carbon Dioxide Anion Gap BUN Creatinine Est GFR ( Amer) Est GFR (Non-Af Amer) POC Glucose (mg/dL) 126 H 92 Random Glucose Calcium Phosphorus Magnesium Total Bilirubin AST ALT Alkaline Phosphatase Total Creatine Kinase CK-MB (Mass) Troponin I Total Protein Albumin Globulin Albumin/Globulin Ratio Procalcitonin Arterial Blood Potassium Vancomycin Trough 15.6 H EKG/Cardiology Studies: Cardiology / EKG Studies 12/02/17 09:56 ELECTROCARDIOGRAM Routine Comment: Mode Of Transportation: Reason For Exam: intermittent Bradycardia Critical Care Progress Note - Nutrition Nutrition: Nutrition Category Date Time Status Heart Healthy Diet [DIET] Diets 11/30/17 Lunch Active Assessment/Plan - Assessment and Plan (Free Text) Plan: Patient seen and examined at bedside with above resident. Patient's chart reviewed and verified. 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 cc time 45 minutes
--- NOTE | 2017-12-02 12:08 | CP.PCM.CON ---
History of Present Illness - History of Present Illness History of Present Illness: I was asked to evaluate patient by Dr Stanley. Patient is a 72 year old male with PMH COPD who presents with pneumonia. He was treated with antibiotics, but developed respiratory failure. Code blue was called and the patient required intubation. He was transferred to ICU. He is sedated. Review of Systems - Review of Systems Systems not reviewed;Unavailable: Intubated Past Patient History - Past Medical History & Family History Past Medical History?: Yes - Past Social History Smoking Status: Former Smoker - CARDIAC Hx Congestive Heart Failure: Yes Hx Hypertension: Yes - PULMONARY Hx Chronic Obstructive Pulmonary Disease (COPD): Yes - NEUROLOGICAL HX Cerebrovascular Accident: Yes (left hemiparesis) - HEENT Hx Difficulty Chewing: Yes - RENAL Hx Renal Failure: Yes (renal insufficiency) - MUSCULOSKELETAL/RHEUMATOLOGICAL Hx Arthritis: Yes (neck and right shoulder) - GASTROINTESTINAL Hx Clostridium Difficile: Yes Other/Comment: PEG - GENITOURINARY/GYNECOLOGICAL Hx Incontinence: Yes Hx Prostate Problems: Yes - PSYCHIATRIC Hx Substance Use: No - SURGICAL HISTORY Hx Herniorrhaphy: Yes Other/Comment: Laminectomy - ANESTHESIA Hx Anesthesia: Yes Hx Anesthesia Reactions: No Meds Allergies/Adverse Reactions: Allergies Allergy/AdvReac Type Severity Reaction Status Date / Time aspirin Allergy Verified 11/26/17 17:20 ketorolac [From Toradol] Allergy Verified 11/26/17 17:20 NSAIDS (Non-Steroidal Allergy Verified 11/26/17 17:20 Anti-Inflamma - Medications Medications: Current Medications Albuterol/Ipratropium (Duoneb 3 Mg/0.5 Mg (3 Ml) Ud) 3 ml INH RQ6 PRN PRN Reason: Shortness of Breath Ascorbic Acid (Vitamin C 250 Mg Tab) 250 mg PO DAILY [facility] Enoxaparin Sodium (Lovenox) 80 mg SC Q12 [facility] Last Admin: 12/02/17 09:49 Dose: 80 mg Famotidine (Pepcid) 20 mg PO DAILY [facility] Last Admin: 12/02/17 09:13 Dose: 20 mg Propofol (Diprivan) 1,000 mg in 100 mls @ 2.708 mls/hr IV .Q24H PRN; Protocol; 5 MCG/KG/MIN PRN Reason: TITRATE PER MD ORDER Last Titration: 12/01/17 21:05 Dose: 0 mcg/kg/min, 0 mls/hr Vancomycin HCl 1 gm/ Sodium (Chloride) 200 mls @ 166.7 mls/hr IVPB Q24H [facility] Last Admin: 12/01/17 15:36 Dose: 166.7 mls/hr Dopamine HCl/Dextrose (Dopamine 400mg/250ml D5w) 400 mg in 250 mls @ 6.765 mls/ hr IV .Q24H PRN; Protocol; 2 MCG/KG/MIN PRN Reason: TITRATE PER MD ORDER Last Titration: 12/02/17 04:13 Dose: 2.01 mcg/kg/min, 6.8 mls/hr Piperacillin Sod/Tazobactam (Sod 3.375 gm/ Sodium Chloride) 100 mls @ 200 mls/ hr IVPB Q6H [facility] Sodium Chloride (Sodium Chloride 0.9%) 1,000 mls @ 42 mls/hr IV .[id number] [facility] Insulin Aspart (Novolog) 0 unit SC ACHS [facility] PRN Reason: Protocol Multivitamins/Vitamin C (Multi-Delyn Liquid) 5 ml PO DAILY [facility] Tamsulosin HCl (Flomax) 0.4 mg PO DAILY [facility] Last Admin: 12/02/17 09:13 Dose: 0.4 mg Zinc Sulfate (Zinc Sulfate 220 Mg Cap) 220 mg PO DAILY [facility] Physical Exam - Constitutional Appears: Non-toxic - Head Exam Head Exam: NORMAL INSPECTION - Eye Exam Eye Exam: Normal appearance - ENT Exam ENT Exam: Mucous Membranes Moist - Neck Exam Neck exam: Positive for: Full Rom - Respiratory Exam Respiratory Exam: Decreased Breath Sounds - Cardiovascular Exam Cardiovascular Exam: REGULAR RHYTHM - GI/Abdominal Exam GI & Abdominal Exam: Normal Bowel Sounds - Rectal Exam Rectal Exam: Deferred - Extremities Exam Extremities exam: Negative for: pedal edema - Back Exam Back exam: NORMAL INSPECTION - Neurological Exam Neurological exam: Alert, Oriented x3 - Psychiatric Exam Psychiatric exam: Normal Affect - Skin Skin Exam: Normal Color Results - Vital Signs Recent Vital Signs: Last Vital Signs Temp 98 F 12/02/17 06:00 Pulse 48 L 12/02/17 07:50 Resp 15 12/02/17 07:50 BP 147/78 12/02/17 07:47 Pulse Ox 96 12/02/17 07:50 - Labs Result Diagrams: 12/03/17 06:39 12/03/17 06:40 Labs: Laboratory Results - last 24 hr 12/01/17 12/01/17 12/01/17 13:15 21:45 21:45 WBC 12.2 H RBC 4.04 L Hgb 11.6 L Hct 34.9 L MCV 86.5 MCH 28.8 MCHC 33.3 RDW 16.6 H Plt Count 202 MPV 8.4 Neut % (Auto) 80.4 H Lymph % (Auto) 6.6 L [place] % (Auto) 11.6 H Eos % (Auto) 1.0 Baso % (Auto) 0.4 Neut # (Auto) 9.8 H Lymph # (Auto) 0.8 L [place] # (Auto) 1.4 H Eos # (Auto) 0.1 Baso # (Auto) 0.0 Neutrophils % (Manual) 74 Band Neutrophils % 1 Lymphocytes % (Manual) 8 L Monocytes % (Manual) 15 H Metamyelocytes % 2 H Platelet Estimate Normal Anisocytosis (manual) Target Cells D-Dimer, Quantitative Puncture Site pCO2 pO2 HCO3 ABG pH ABG Total CO2 ABG O2 Saturation ABG Base Excess ABG Hemoglobin ABG Carboxyhemoglobin POC ABG HHb (Measured) ABG Methemoglobin Oscar Test ABG Potassium A-a O2 Difference Respiratory Index Hgb O2 Saturation Glucose Lactate Vent Mode Mechanical Rate FiO2 Tidal Volume PEEP Sodium 146 Potassium 4.4 Chloride 110 H Carbon Dioxide 34 H Anion Gap 6 L BUN 45 H Creatinine 1.2 Est GFR ( Amer) > 60 Est GFR (Non-Af Amer) 60 POC Glucose (mg/dL) Random Glucose 111 H Calcium 8.0 L Phosphorus Magnesium 3.0 H Total Bilirubin 0.6 AST 19 ALT 29 Alkaline Phosphatase 74 Total Creatine Kinase CK-MB (Mass) Troponin I Total Protein 6.3 Albumin 2.8 L Globulin 3.5 Albumin/Globulin Ratio 0.8 L Procalcitonin 1.62 H Arterial Blood Potassium Vancomycin Trough 12/01/17 12/01/17 12/01/17 21:45 21:55 21:57 WBC RBC Hgb Hct MCV MCH MCHC RDW Plt Count MPV Neut % (Auto) Lymph % (Auto) [place] % (Auto) Eos % (Auto) Baso % (Auto) Neut # (Auto) Lymph # (Auto) [place] # (Auto) Eos # (Auto) Baso # (Auto) Neutrophils % (Manual) Band Neutrophils % Lymphocytes % (Manual) Monocytes % (Manual) Metamyelocytes % Platelet Estimate Anisocytosis (manual) Target Cells D-Dimer, Quantitative 3875 H Puncture Site Rra pCO2 57 H pO2 128 H HCO3 31.6 H ABG pH 7.40 ABG Total CO2 37.0 H ABG O2 Saturation 98.3 H ABG Base Excess 8.5 H ABG Hemoglobin ABG Carboxyhemoglobin POC ABG HHb (Measured) ABG Methemoglobin Oscar Test Pos ABG Potassium 4.3 A-a O2 Difference 514.0 Respiratory Index 4.0 Hgb O2 Saturation Glucose 110 Lactate 0.9 Vent Mode Prvc Mechanical Rate 16 FiO2 100.0 Tidal Volume 500 PEEP 5 Sodium 150.0 H Potassium Chloride 117.0 H Carbon Dioxide Anion Gap BUN Creatinine Est GFR ( Amer) Est GFR (Non-Af Amer) POC Glucose (mg/dL) Random Glucose Calcium Phosphorus Magnesium Total Bilirubin AST ALT Alkaline Phosphatase Total Creatine Kinase CK-MB (Mass) Troponin I Total Protein Albumin Globulin Albumin/Globulin Ratio Procalcitonin 1.24 H Arterial Blood Potassium 4.3 Vancomycin Trough 12/02/17 12/02/17 12/02/17 04:57 06:32 06:32 WBC 11.2 H RBC 3.77 L Hgb 11.0 L Hct 32.3 L MCV 85.7 MCH 29.1 MCHC 34.0 RDW 16.8 H Plt Count 193 MPV 8.7 Neut % (Auto) 78.2 H Lymph % (Auto) 9.1 L [place] % (Auto) 11.9 H Eos % (Auto) 0.6 Baso % (Auto) 0.2 Neut # (Auto) 8.8 H Lymph # (Auto) 1.0 [place] # (Auto) 1.3 H Eos # (Auto) 0.1 Baso # (Auto) 0.0 Neutrophils % (Manual) 79 H Band Neutrophils % 2 Lymphocytes % (Manual) 8 L Monocytes % (Manual) 11 H Metamyelocytes % Platelet Estimate Normal Anisocytosis (manual) Slight Target Cells Slight D-Dimer, Quantitative Puncture Site Rr pCO2 42 pO2 48 L HCO3 29.6 H ABG pH 7.47 H ABG Total CO2 31.9 H ABG O2 Saturation 90.9 L ABG Base Excess 6.3 H ABG Hemoglobin 11.6 L ABG Carboxyhemoglobin 1.8 H POC ABG HHb (Measured) 8.8 H ABG Methemoglobin 1.0 Oscar Test Pos ABG Potassium A-a O2 Difference 399.0 Respiratory Index 8.3 Hgb O2 Saturation 88.4 L Glucose Lactate Vent Mode Prvc Mechanical Rate 16 FiO2 70.0 Tidal Volume 500 PEEP 5 Sodium 147 Potassium 3.7 Chloride 114 H Carbon Dioxide 29 Anion Gap 7 L BUN 38 H Creatinine 1.0 Est GFR ( Amer) > 60 Est GFR (Non-Af Amer) > 60 POC Glucose (mg/dL) Random Glucose 120 H Calcium 7.2 L Phosphorus 0.9 L* Magnesium 2.6 H Total Bilirubin 0.7 AST 19 ALT 24 Alkaline Phosphatase 67 Total Creatine Kinase 47 L CK-MB (Mass) 0.36 Troponin I < 0.0120 Total Protein 5.7 L Albumin 2.5 L Globulin 3.2 Albumin/Globulin Ratio 0.8 L Procalcitonin Arterial Blood Potassium Vancomycin Trough 12/02/17 12/02/17 06:32 11:39 WBC RBC Hgb Hct MCV MCH MCHC RDW Plt Count MPV Neut % (Auto) Lymph % (Auto) Stokes % (Auto) Eos % (Auto) Baso % (Auto) Neut # (Auto) Lymph # (Auto) Stokes # (Auto) Eos # (Auto) Baso # (Auto) Neutrophils % (Manual) Band Neutrophils % Lymphocytes % (Manual) Monocytes % (Manual) Metamyelocytes % Platelet Estimate Anisocytosis (manual) Target Cells D-Dimer, Quantitative Puncture Site pCO2 pO2 HCO3 ABG pH ABG Total CO2 ABG O2 Saturation ABG Base Excess ABG Hemoglobin ABG Carboxyhemoglobin POC ABG HHb (Measured) ABG Methemoglobin Oscar Test ABG Potassium A-a O2 Difference Respiratory Index Hgb O2 Saturation Glucose Lactate Vent Mode Mechanical Rate FiO2 Tidal Volume PEEP Sodium Potassium Chloride Carbon Dioxide Anion Gap BUN Creatinine Est GFR ( Amer) Est GFR (Non-Af Amer) POC Glucose (mg/dL) 126 H Random Glucose Calcium Phosphorus Magnesium Total Bilirubin AST ALT Alkaline Phosphatase Total Creatine Kinase CK-MB (Mass) Troponin I Total Protein Albumin Globulin Albumin/Globulin Ratio Procalcitonin Arterial Blood Potassium Vancomycin Trough 15.6 H - EKG Data EKG Interpreted by: Myself Assessment & Plan (1) Cardiac arrest Assessment and Plan: likely respiratory in nature. recommend echocardiogram to assess LV function holding AV ashanti blocking agents Status: Acute
[2017-12-02] MEDS ORDERED: Potassium Phosphate 15 MMOLE in Sodium Chloride 0.9% 250 ML IV ONE (14:00)
[2017-12-02] MEDS: Vancomycin 1 GM in Sodium Chloride 0.9% 200 ML IVPB SCH (16:30)
--- NOTE | 2017-12-02 17:25 | PCM.PROC ---
Procedures Attestation:: I certify that I have explained the specified Operation(s) or Procedure(s), risks, benefits and reasonable alternatives to the Patient and/or other person responsible. The opportunity was given to ask questions and all questions answered - Central Line Placement Right Internal Jugular Triple Lumen Catheter Aseptic technique was employed throughout the procedure: Hand Hygiene done prior to procedure, Full sterile barriers (mask, hair cover, sterile gown, sterile gloves), Full body sterile drape, Chloraprep Antiseptic: 30 second prep for IJ or SC sites CVP Time Out Performed: Yes Pt. Placed on Pulse Ox Monitor: Yes Central Line Prep: Chlorhexidine-Alcohol Combination Local Anesthesia Used: Lidocaine 1% Ultrasound Used for Placement: Yes Central Line Lumen Inserted: single Central Line Length: 30 cm Post Procedure: Sutured in Place, Good Blood Return, All Ports Aspirated, Flushed, Capped, Sterile Dressing Applied Secured by: Securement device Post procedure dressing: Gauze, Clear vapor permeable, Chlorhexidine disc ( Biopatch) Post Procedure X-Ray: Yes Patient Tolerated Procedure: Well Immediate Complications: None Additional Comments: Float pacing wire
--- NOTE | 2017-12-02 17:51 | CARD ---
APPROVED REPORT EXAM: Two-dimensional and M-mode echocardiogram with Doppler and color Doppler. Other Information Quality : TDSRhythm : INDICATION Congestive Heart Failure Bradycardia/ Fever RISK FACTORS Diabetes 2D DIMENSIONS IVSd1.1 (0.7-1.1cm)LVDd3.9 (3.9-5.9cm) PWd1.2 (0.7-1.1cm)LVDs2.5 (2.5-4.0cm) FS (%) 35.3 %LVEF (%)65.4 (>50%) M-Mode DIMENSIONS Left Atrium (MM)3.68 (2.5-4.0cm)Aortic Root3.54 (2.2-3.7cm) Aortic Cusp Exc.2.37 (1.5-2.0cm) Mitral Valve MV E Zzuwicqh56.0cm/sMV A Axqdnwxr54.7cm/sE/A ratio0.7 TDI E/Lateral E'0.0E/Medial E'0.0 Tricuspid Valve TR Peak Onmjzsjt173xl/sTR Peak Gr.[id number] LEFT VENTRICLE There is borderline concentric left ventricular hypertrophy. The left ventricular systolic function is normal. The left ventricular ejection fraction is within the normal range. There is normal LV segmental wall motion. Transmitral Doppler flow pattern is Grade I-abnormal relaxation pattern. Normal left atrial pressure. RIGHT VENTRICLE The right ventricle is normal size. The right ventricular systolic function is normal. ATRIA The left atrium size is normal. The right atrium size is normal. AORTIC VALVE The aortic valve is normal in structure. No aortic regurgitation is present. MITRAL VALVE The mitral valve is normal in structure. There is no mitral valve regurgitation noted. TRICUSPID VALVE The tricuspid valve is normal in structure. There is mild to moderate tricuspid regurgitation. Right ventricular systolic pressure is estimated at - 47 mmHg. There is moderate pulmonary hypertension. PULMONIC VALVE The pulmonic valve is not well visualized. There is mild pulmonic valvular regurgitation. GREAT VESSELS The aortic root is normal in size. The IVC is normal in size and collapses >50% with inspiration. PERICARDIAL EFFUSION There is no pericardial effusion. <Conclusion> There is borderline concentric left ventricular hypertrophy. The left ventricular systolic function is normal. Transmitral Doppler flow pattern is Grade I-abnormal relaxation pattern. Normal left atrial pressure. The right ventricular systolic function is normal. There is mild to moderate tricuspid regurgitation. Right ventricular systolic pressure is estimated at - 47 mmHg compatible with moderate pulmonary hypertension. There is no pericardial effusion.
[2017-12-03] MEDS: (Novolog) Insulin Aspart, Recombinant 100 u/ml 10 ml vial SC SCH ×4 (00:53→19:25)
[2017-12-03] MEDS: Piperacillin/Tazobact 3.375 GM in Sodium Chloride 100 ML IVPB SCH ×3 (04:00→15:34)
[2017-12-03 04:45] LABS: ABG ALLEN TEST POS; ARTERIAL BLOOD GAS HCO3 29.8 mmol/L (21-28); ARTERIAL BLOOD GAS HEMOGLOBIN 11.8 g/dL (11.7-17.4); ARTERIAL BLOOD GAS O2 SAT 97.8 % (95-98); ARTERIAL BLOOD GAS PCO2 42 mm/Hg (35-45); ARTERIAL BLOOD GAS PH 7.47 (7.35-7.45); ARTERIAL BLOOD GAS PO2 103 mm/Hg (80-100); ARTERIAL BLOOD GAS TCO2 31.9 mmol/L (22-28)
[2017-12-03 06:43] LABS: BASO # 0.1 K/uL (0.0-0.2); BASO % 0.5 % (0.0-2.0); EOS # 0.1 K/uL (0.0-0.7); EOS % 0.8 % (0.0-4.0); LYMPH # 1.2 K/uL (1.0-4.3); MEAN CELL VOLUME 84.5 fL (80.0-94.0); MEAN CORPUSCULAR HEMOGLOBIN 27.9 pg (27.0-31.0); MEAN CORPUSCULAR HGB CONC 33.1 g/dL (33.0-37.0); MONO # 1.2 K/uL (0.0-0.8); MONO % 9.8 % (0.0-10.0); NEUT # 9.7 K/uL (1.8-7.0); NEUT % 78.9 % (50.0-75.0); NRBC % 0.3 % (0.0-2.0); RBC 3.95 Mil/uL (4.40-5.90); RED CELL DISTRIBUTION WIDTH 16.7 % (11.5-14.5); WHITE BLOOD COUNT 12.2 K/uL (4.8-10.8)
[2017-12-03 07:06] LABS: ALB/GLOB RATIO 0.8 (1.0-2.1); ALBUMIN 2.6 g/dL (3.5-5.0); ALT/SGPT 25 U/L (21-72); AST/SGOT 25 U/L (17-59); BLOOD UREA NITROGEN 37 mg/dL (9-20); CALCIUM 7.4 mg/dl (8.6-10.4); GFR AFRICAN-AMERICAN > 60; GFR NON-AFRICAN AMERICAN 60; MAGNESIUM 2.8 mg/dL (1.6-2.3)
--- NOTE | 2017-12-03 07:37 | PN ---
DATE: The patient on ventilator, supportive care. The patient is still having difficulty weaning, seen by Cardiothoracic Surgery. The patient at this point will get continued ventilator support, IV antibiotics. He is to keep . Adrianne Stanley MD
--- NOTE | 2017-12-03 07:47 | CP.PCM.PN ---
Subjective - Date & Time of Evaluation Date of Evaluation: 12/03/17 Time of Evaluation: 07:45 - Subjective Subjective: CT surgery progress note for Dr. Selvin Jones, PGY-1 Pt S & E at bedside. Pt intubated, sedated, arousable to verbal stimuli. Denies any problems. on [facility] vent- PRVC 100%, PEEP 5, RR 16, TV 500. O2 sat is 98%. Per nursing, no acute events overnight, some bradycardia into 40's. Objective - Vital Signs/Intake and Output Vital Signs (last 24 hours): Temp Pulse Resp BP Pulse Ox 100.6 F H 64 16 97/64 L 98 12/03/17 00:00 12/03/17 07:00 12/03/17 07:00 12/03/17 06:47 12/03/17 07:00 Intake and Output: 12/03/17 12/03/17 06:59 18:59 Intake Total 1027 62 Output Total 745 45 Balance 282 17 - Medications Medications: Current Medications Albuterol/Ipratropium (Duoneb 3 Mg/0.5 Mg (3 Ml) Ud) 3 ml INH RQ6 PRN PRN Reason: Shortness of Breath Ascorbic Acid (Vitamin C 250 Mg Tab) 250 mg PO DAILY [facility] Last Admin: 12/02/17 11:00 Dose: 250 mg Enoxaparin Sodium (Lovenox) 80 mg SC Q12 [facility] Last Admin: 12/02/17 23:00 Dose: 80 mg Famotidine (Pepcid) 20 mg PO DAILY [facility] Last Admin: 12/02/17 09:13 Dose: 20 mg Propofol (Diprivan) 1,000 mg in 100 mls @ 2.708 mls/hr IV .Q24H PRN; Protocol; 5 MCG/KG/MIN PRN Reason: TITRATE PER MD ORDER Last Titration: 12/01/17 21:05 Dose: 0 mcg/kg/min, 0 mls/hr Vancomycin HCl 1 gm/ Sodium (Chloride) 200 mls @ 166.7 mls/hr IVPB Q24H [facility] Last Admin: 12/02/17 16:30 Dose: 166.7 mls/hr Piperacillin Sod/Tazobactam (Sod 3.375 gm/ Sodium Chloride) 100 mls @ 200 mls/ hr IVPB Q6H [facility] Last Admin: 12/03/17 04:00 Dose: 200 mls/hr Sodium Chloride (Sodium Chloride 0.9%) 1,000 mls @ 42 mls/hr IV .[id number] [facility] Last Admin: 12/02/17 11:00 Dose: 42 mls/hr Insulin Aspart (Novolog) 0 unit SC Q6H [facility] PRN Reason: Protocol Last Admin: 12/03/17 06:27 Dose: Not Given Multivitamins/Vitamin C (Multi-Delyn Liquid) 5 ml PO DAILY [facility] Last Admin: 12/02/17 11:00 Dose: 5 ml Tamsulosin HCl (Flomax) 0.4 mg PO DAILY [facility] Last Admin: 12/02/17 09:13 Dose: 0.4 mg Zinc Sulfate (Zinc Sulfate 220 Mg Cap) 220 mg PO DAILY [facility] Last Admin: 12/02/17 11:00 Dose: 220 mg - Labs Labs: 12/03/17 06:39 12/03/17 06:40 PT 16.6 SECONDS (9.7-12.2) H 11/26/17 17:31 INR 1.5 11/26/17 17:31 APTT 31 SECONDS (21-34) 11/26/17 17:31 - Constitutional Appears: Non-toxic, No Acute Distress - Head Exam Head Exam: ATRAUMATIC, NORMAL INSPECTION, NORMOCEPHALIC - Eye Exam Eye Exam: EOMI, Normal appearance - ENT Exam ENT Exam: Mucous Membranes Dry Additional comments: ET tube in place - Neck Exam Additional comments: Right TLC in place, clean and dry - Respiratory Exam Respiratory Exam: NORMAL BREATHING PATTERN - Cardiovascular Exam Cardiovascular Exam: REGULAR RHYTHM, +S1, +S2 - GI/Abdominal Exam GI & Abdominal Exam: Soft. absent: Distended, Firm, Guarding, Tenderness - Extremities Exam Extremities Exam: Pedal Edema (bilateral) - Neurological Exam Neurological Exam: Awake Additional comments: intubated - Psychiatric Exam Additional comments: unable to assess - Skin Skin Exam: Dry, Intact, Normal Color, Warm Assessment and Plan - Assessment and Plan (Free Text) Assessment: 72 M presents s/p code blue intubated for respiratory failure with small B/L pleural effusions- stable Plan: s/p transvenous pacemaker placement yesterday cont IV Abx No CT surgical intervention at this time Cont DVT/GI ppx Cont mgmt as per primary and ICU teams Will SUNDAR Jones, PGY-1
[2017-12-03] MEDS ORDERED: Potassium Phosphate 15 MMOLE in Sodium Chloride 0.9% 250 ML IV ONE (07:49)
--- NOTE | 2017-12-03 08:19 | CP.PCM.PN ---
Subjective - Date & Time of Evaluation Date of Evaluation: 12/03/17 Time of Evaluation: 08:00 - Subjective Subjective: patient is intubated, but is awake Objective - Vital Signs/Intake and Output Vital Signs (last 24 hours): Temp Pulse Resp BP Pulse Ox 100.6 F H 64 16 97/64 L 98 12/03/17 00:00 12/03/17 07:00 12/03/17 07:00 12/03/17 06:47 12/03/17 07:00 Intake and Output: 12/03/17 12/03/17 06:59 18:59 Intake Total 1027 62 Output Total 745 45 Balance 282 17 - Medications Medications: Current Medications Albuterol/Ipratropium (Duoneb 3 Mg/0.5 Mg (3 Ml) Ud) 3 ml INH RQ6 PRN PRN Reason: Shortness of Breath Ascorbic Acid (Vitamin C 250 Mg Tab) 250 mg PO DAILY [facility] Last Admin: 12/02/17 11:00 Dose: 250 mg Enoxaparin Sodium (Lovenox) 80 mg SC Q12 [facility] Last Admin: 12/02/17 23:00 Dose: 80 mg Famotidine (Pepcid) 20 mg PO DAILY [facility] Last Admin: 12/02/17 09:13 Dose: 20 mg Propofol (Diprivan) 1,000 mg in 100 mls @ 2.708 mls/hr IV .Q24H PRN; Protocol; 5 MCG/KG/MIN PRN Reason: TITRATE PER MD ORDER Last Titration: 12/01/17 21:05 Dose: 0 mcg/kg/min, 0 mls/hr Vancomycin HCl 1 gm/ Sodium (Chloride) 200 mls @ 166.7 mls/hr IVPB Q24H [facility] Last Admin: 12/02/17 16:30 Dose: 166.7 mls/hr Piperacillin Sod/Tazobactam (Sod 3.375 gm/ Sodium Chloride) 100 mls @ 200 mls/ hr IVPB Q6H [facility] Last Admin: 12/03/17 04:00 Dose: 200 mls/hr Sodium Chloride (Sodium Chloride 0.9%) 1,000 mls @ 42 mls/hr IV .[id number] [facility] Last Admin: 12/02/17 11:00 Dose: 42 mls/hr Potassium Phosphate 15 mmole/ (Sodium Chloride) 255 mls @ 63 mls/hr IV ONCE ONE Stop: 12/03/17 11:47 Insulin Aspart (Novolog) 0 unit SC Q6H [facility] PRN Reason: Protocol Last Admin: 12/03/17 06:27 Dose: Not Given Multivitamins/Vitamin C (Multi-Delyn Liquid) 5 ml PO DAILY [facility] Last Admin: 12/02/17 11:00 Dose: 5 ml Tamsulosin HCl (Flomax) 0.4 mg PO DAILY [facility] Last Admin: 12/02/17 09:13 Dose: 0.4 mg Zinc Sulfate (Zinc Sulfate 220 Mg Cap) 220 mg PO DAILY [facility] Last Admin: 12/02/17 11:00 Dose: 220 mg - Labs Labs: 12/03/17 06:39 12/03/17 06:40 PT 16.6 SECONDS (9.7-12.2) H 11/26/17 17:31 INR 1.5 11/26/17 17:31 APTT 31 SECONDS (21-34) 11/26/17 17:31 - Constitutional Appears: Non-toxic - Head Exam Head Exam: NORMAL INSPECTION - Eye Exam Eye Exam: Normal appearance - ENT Exam ENT Exam: Mucous Membranes Moist - Neck Exam Neck Exam: Full ROM - Respiratory Exam Respiratory Exam: Decreased Breath Sounds - Cardiovascular Exam Cardiovascular Exam: REGULAR RHYTHM - GI/Abdominal Exam GI & Abdominal Exam: Normal Bowel Sounds - Rectal Exam Rectal Exam: Deferred - Extremities Exam Extremities Exam: absent: Pedal Edema - Back Exam Back Exam: NORMAL INSPECTION - Neurological Exam Neurological Exam: Alert - Skin Skin Exam: Normal Color Assessment and Plan (1) Cardiac arrest Assessment & Plan: echocardiogram reveals normal left ventricular function. has moderate pulmonary hypertension. hert rate improved. there is no clear indication for PPM. continue medical therapy Status: Acute
[2017-12-03] MEDS: Albuterol-Ipratrop 3 mg / 0.5 (3 ml) UD INH SCH ×2 (08:21→20:49)
--- NOTE | 2017-12-03 08:40 | RAD ---
HISTORY: ij pacing wire COMPARISON: No prior. FINDINGS: LUNGS: Opacity at right lung base, possible pneumonia. PLEURA: Small right pleural effusion. No left pleural effusion. No pneumothorax. CARDIOVASCULAR: Normal heart size. Mild congestive change. ET tube and NG tube unchanged. Possible temporary pacemaker noted. Please correlate. OSSEOUS STRUCTURES: No significant abnormalities. VISUALIZED UPPER ABDOMEN: Normal. OTHER FINDINGS: None. IMPRESSION: Right basilar opacity. Possible pneumonia. Small right pleural effusion. Possible temporary pacemaker. ET tube and NG tube appropriately positioned
--- NOTE | 2017-12-03 08:43 | RAD ---
Chest x-ray single frontal view History: Fall. Comparison: 12/02/2017 Findings Endotracheal tube extending into the mid thoracic trachea. Other lines tubes are in stable position. The right central venous catheter extends the confluence of the right brachial/SVC junction. Advancement may be helpful if clinically indicated. Moderate venous congestion. Left hilar prominence. Patchy bibasilar airspace opacities. Cardiomegaly. Enlarged ectatic aorta. Postsurgical changes of the cervical spine. Impression: Endotracheal tube extending into the mid thoracic trachea. Other lines tubes are in stable position. The right central venous catheter extends to the confluence of the right brachial/SVC junction. Advancement may be helpful if clinically indicated. Moderate venous congestion. Left hilar prominence. Patchy bibasilar airspace opacities. Cardiomegaly. Enlarged ectatic aorta.
[2017-12-03] MEDS ORDERED: Lactated Ringer's 1,000 ML IV SCH ×2 (08:45→08:53)
[2017-12-03] MEDS ORDERED: Lactated Ringer's 1,000 ML IV ONE (08:59)
[2017-12-03] MEDS: Acetylcysteine 20% Inhal Soln (4ml) PO SCH ×2 (09:30→21:28)
[2017-12-03] MEDS: Multiple Vitamins Oral Solution PO SCH (09:31)
--- NOTE | 2017-12-03 11:02 | CP.CCUPN ---
<Rick Biswas - Last Filed: 12/03/17 12:15> CCU Subjective - Physician Review Subjective (Free Text): 12/03/17 11:00 Patient seen and examined at bedside pacing wire placed yesterday. Patient intermittently being paced Cardio on but states no need for PPM CTA today to r/o PE CCU Objective - Vital Signs / Intake & Output Vital Signs (Last 4 hours): Vital Signs Pulse Resp BP Pulse Ox 12/03/17 09:47 80 18 113/71 98 12/03/17 09:00 54 L 16 99 12/03/17 08:46 56 L 16 94/57 L 99 12/03/17 08:00 56 L 16 98 12/03/17 07:47 55 L 16 85/52 L 98 Intake and Output (Last 8hrs): Intake & Output 12/02/17 12/03/17 12/03/17 22:59 06:59 14:59 Intake Total 1008.4 496 206 Output Total 505 480 220 Balance 503.4 16 -14 Weight 202 lb 13.204 oz Intake: Intake, IV Amount 848.4 336 126 Right Midline 370.4 Right Midline distal port 478 336 126 Tube Feeding 160 160 80 Output: Urine 505 380 220 Urethral (Singh) 505 380 220 Stool 100 Emesis 0 0 0 Other: # Bowel Movements 0 0 0 - Physical Exam Head: Positive for: Atraumatic, Normocephalic Pupils: Positive for: PERRL Mouth: Positive for: Moist Mucous Membranes Respiratory/Chest: Positive for: Other (intubated) Abdomen: Positive for: Normal Bowel Sounds. Negative for: Tenderness, Distention, Peritoneal Signs Psychiatric: Positive for: Alert, Oriented x 3 - Medications Active Medications: Active Medications Generic Name Dose Route Start Last Admin Trade Name Freq PRN Reason Stop Dose Admin Acetylcysteine 6 ml 12/03/17 10:00 12/03/17 09:30 Acetylcysteine 20% PO 12/04/17 22:01 6 ml Q12 ABHIJEET Administration Albuterol/Ipratropium 3 ml 12/03/17 14:00 Duoneb 3 Mg/0.5 Mg (3 Ml) Ud INH RQ6 ABHIJEET Apixaban 2.5 mg 12/04/17 10:00 Eliquis PO BID ABHIJEET Ascorbic Acid 250 mg 12/02/17 10:00 12/03/17 09:33 Vitamin C 250 Mg Tab PO 250 mg DAILY ABHIJEET Administration Famotidine 20 mg 11/27/17 10:00 12/03/17 09:32 Pepcid PO 20 mg DAILY ABHIJEET Administration Propofol 1,000 mg in 100 mls @ 2.708 mls/hr 12/01/17 10:43 12/01/17 21:05 Diprivan IV 0 mcg/kg/min .Q24H PRN 0 mls/hr TITRATE PER MD ORDER Titration Protocol 5 MCG/KG/MIN Vancomycin HCl 1 gm/ Sodium 200 mls @ 166.7 mls/hr 12/01/17 16:00 12/02/17 16 :30 Chloride IVPB 166.7 mls/hr Q24H ABHIJEET Administration Piperacillin Sod/Tazobactam 100 mls @ 200 mls/hr 12/02/17 10:00 12/03/17 09: 33 Sod 3.375 gm/ Sodium Chloride IVPB 200 mls/hr Q6H ABHIJEET Administration Potassium Phosphate 15 mmole/ 255 mls @ 63 mls/hr 12/03/17 07:49 12/03/17 09: 32 Sodium Chloride IV 12/03/17 11:47 63 mls/hr ONCE ONE Administration Sodium Chloride 1,000 mls @ 80 mls/hr 12/03/17 10:00 Sodium Chloride 0.9% IV .[id number] ABHIJEET Insulin Aspart 0 unit 12/02/17 18:00 12/03/17 06:27 Novolog SC Not Given Q6H [facility] Protocol Multivitamins/Vitamin C 5 ml 12/02/17 10:00 12/03/17 09:31 Multi-Delyn Liquid PO 5 ml DAILY ABHIJEET Administration Tamsulosin HCl 0.4 mg 11/27/17 10:00 12/03/17 09:31 Flomax PO 0.4 mg DAILY ABHIJEET Administration Zinc Sulfate 220 mg 12/02/17 10:00 12/03/17 09:33 Zinc Sulfate 220 Mg Cap PO 220 mg DAILY ABHIJEET Administration - Patient Studies Lab Studies: Lab Studies 12/03/17 12/03/17 12/03/17 Range/Units 06:40 06:39 05:49 WBC 12.2 H (4.8-10.8) K/uL RBC 3.95 L (4.40-5.90) Mil/uL Hgb 11.0 L (12.0-18.0) g/dL Hct 33.4 L (35.0-51.0) % MCV 84.5 (80.0-94.0) fL MCH 27.9 (27.0-31.0) pg MCHC 33.1 (33.0-37.0) g/dL RDW 16.7 H (11.5-14.5) % Plt Count 204 (130-400) K/uL MPV 9.0 (7.2-11.7) fL Neut % (Auto) 78.9 H (50.0-75.0) % Lymph % (Auto) 10.0 L (20.0-40.0) % [place] % (Auto) 9.8 (0.0-10.0) % Eos % (Auto) 0.8 (0.0-4.0) % Baso % (Auto) 0.5 (0.0-2.0) % Neut # (Auto) 9.7 H (1.8-7.0) K/uL Lymph # (Auto) 1.2 (1.0-4.3) K/uL [place] # (Auto) 1.2 H (0.0-0.8) K/uL Eos # (Auto) 0.1 (0.0-0.7) K/uL Baso # (Auto) 0.1 (0.0-0.2) K/uL Puncture Site pCO2 (35-45) mm/Hg pO2 (80-100) mm/Hg HCO3 (21-28) mmol/L ABG pH (7.35-7.45) ABG Total CO2 (22-28) mmol/L ABG O2 Saturation (95-98) % ABG Base Excess (-2.0-3.0) mmol/L ABG Hemoglobin (11.7-17.4) g/dL ABG Carboxyhemoglobin (0.5-1.5) % POC ABG HHb (Measured) (0.0-5.0) % ABG Methemoglobin (0.0-3.0) % Oscar Test A-a O2 Difference mm/Hg Respiratory Index Hgb O2 Saturation (95.0-98.0) % Vent Mode Mechanical Rate FiO2 % Tidal Volume PEEP Sodium 156 H (132-148) mmol/L Potassium 3.6 (3.6-5.2) mmol/L Chloride 117 H (98-107) mmol/L Carbon Dioxide 33 H (22-30) mmol/L Anion Gap 10 (10-20) BUN 37 H (9-20) mg/dL Creatinine 1.2 (0.8-1.5) mg/dL Est GFR ( Amer) > 60 Est GFR (Non-Af Amer) 60 POC Glucose (mg/dL) 106 (65-110) mg/dL Random Glucose 106 (75-110) mg/dL Calcium 7.4 L (8.6-10.4) mg/dl Phosphorus 2.3 L (2.5-4.5) mg/dL Magnesium 2.8 H (1.6-2.3) mg/dL Total Bilirubin 0.7 (0.2-1.3) mg/dL AST 25 (17-59) U/L ALT 25 (21-72) U/L Alkaline Phosphatase 63 (38-126) U/L Total Protein 5.9 L (6.3-8.3) g/dL Albumin 2.6 L (3.5-5.0) g/dL Globulin 3.3 (2.2-3.9) gm/dL Albumin/Globulin Ratio 0.8 L (1.0-2.1) 12/03/17 12/03/17 12/02/17 Range/Units 04:40 00:12 16:15 WBC (4.8-10.8) K/uL RBC (4.40-5.90) Mil/uL Hgb (12.0-18.0) g/dL Hct (35.0-51.0) % MCV (80.0-94.0) fL MCH (27.0-31.0) pg MCHC (33.0-37.0) g/dL RDW (11.5-14.5) % Plt Count (130-400) K/uL MPV (7.2-11.7) fL Neut % (Auto) (50.0-75.0) % Lymph % (Auto) (20.0-40.0) % [place] % (Auto) (0.0-10.0) % Eos % (Auto) (0.0-4.0) % Baso % (Auto) (0.0-2.0) % Neut # (Auto) (1.8-7.0) K/uL Lymph # (Auto) (1.0-4.3) K/uL [place] # (Auto) (0.0-0.8) K/uL Eos # (Auto) (0.0-0.7) K/uL Baso # (Auto) (0.0-0.2) K/uL Puncture Site Rr pCO2 42 (35-45) mm/Hg pO2 103 H (80-100) mm/Hg HCO3 29.8 H (21-28) mmol/L ABG pH 7.47 H (7.35-7.45) ABG Total CO2 31.9 H (22-28) mmol/L ABG O2 Saturation 97.8 (95-98) % ABG Base Excess 6.3 H (-2.0-3.0) mmol/L ABG Hemoglobin 11.8 (11.7-17.4) g/dL ABG Carboxyhemoglobin 1.0 (0.5-1.5) % POC ABG HHb (Measured) 2.2 (0.0-5.0) % ABG Methemoglobin 1.1 (0.0-3.0) % Oscar Test Pos A-a O2 Difference 558.0 mm/Hg Respiratory Index 5.4 Hgb O2 Saturation 95.8 (95.0-98.0) % Vent Mode Prvc Mechanical Rate 16 FiO2 100.0 % Tidal Volume 500 PEEP 5 Sodium (132-148) mmol/L Potassium (3.6-5.2) mmol/L Chloride (98-107) mmol/L Carbon Dioxide (22-30) mmol/L Anion Gap (10-20) BUN (9-20) mg/dL Creatinine (0.8-1.5) mg/dL Est GFR ( Amer) Est GFR (Non-Af Amer) POC Glucose (mg/dL) 117 H 92 (65-110) mg/dL Random Glucose (75-110) mg/dL Calcium (8.6-10.4) mg/dl Phosphorus (2.5-4.5) mg/dL Magnesium (1.6-2.3) mg/dL Total Bilirubin (0.2-1.3) mg/dL AST (17-59) U/L ALT (21-72) U/L Alkaline Phosphatase (38-126) U/L Total Protein (6.3-8.3) g/dL Albumin (3.5-5.0) g/dL Globulin (2.2-3.9) gm/dL Albumin/Globulin Ratio (1.0-2.1) 12/02/17 Range/Units 11:39 WBC (4.8-10.8) K/uL RBC (4.40-5.90) Mil/uL Hgb (12.0-18.0) g/dL Hct (35.0-51.0) % MCV (80.0-94.0) fL MCH (27.0-31.0) pg MCHC (33.0-37.0) g/dL RDW (11.5-14.5) % Plt Count (130-400) K/uL MPV (7.2-11.7) fL Neut % (Auto) (50.0-75.0) % Lymph % (Auto) (20.0-40.0) % [place] % (Auto) (0.0-10.0) % Eos % (Auto) (0.0-4.0) % Baso % (Auto) (0.0-2.0) % Neut # (Auto) (1.8-7.0) K/uL Lymph # (Auto) (1.0-4.3) K/uL [place] # (Auto) (0.0-0.8) K/uL Eos # (Auto) (0.0-0.7) K/uL Baso # (Auto) (0.0-0.2) K/uL Puncture Site pCO2 (35-45) mm/Hg pO2 (80-100) mm/Hg HCO3 (21-28) mmol/L ABG pH (7.35-7.45) ABG Total CO2 (22-28) mmol/L ABG O2 Saturation (95-98) % ABG Base Excess (-2.0-3.0) mmol/L ABG Hemoglobin (11.7-17.4) g/dL ABG Carboxyhemoglobin (0.5-1.5) % POC ABG HHb (Measured) (0.0-5.0) % ABG Methemoglobin (0.0-3.0) % Oscar Test A-a O2 Difference mm/Hg Respiratory Index Hgb O2 Saturation (95.0-98.0) % Vent Mode Mechanical Rate FiO2 % Tidal Volume PEEP Sodium (132-148) mmol/L Potassium (3.6-5.2) mmol/L Chloride (98-107) mmol/L Carbon Dioxide (22-30) mmol/L Anion Gap (10-20) BUN (9-20) mg/dL Creatinine (0.8-1.5) mg/dL Est GFR ( Amer) Est GFR (Non-Af Amer) POC Glucose (mg/dL) 126 H (65-110) mg/dL Random Glucose (75-110) mg/dL Calcium (8.6-10.4) mg/dl Phosphorus (2.5-4.5) mg/dL Magnesium (1.6-2.3) mg/dL Total Bilirubin (0.2-1.3) mg/dL AST (17-59) U/L ALT (21-72) U/L Alkaline Phosphatase (38-126) U/L Total Protein (6.3-8.3) g/dL Albumin (3.5-5.0) g/dL Globulin (2.2-3.9) gm/dL Albumin/Globulin Ratio (1.0-2.1) Laboratory Results - last 24 hr 12/02/17 12/02/17 12/03/17 11:39 16:15 00:12 WBC RBC Hgb Hct MCV MCH MCHC RDW Plt Count MPV Neut % (Auto) Lymph % (Auto) [place] % (Auto) Eos % (Auto) Baso % (Auto) Neut # (Auto) Lymph # (Auto) [place] # (Auto) Eos # (Auto) Baso # (Auto) Puncture Site pCO2 pO2 HCO3 ABG pH ABG Total CO2 ABG O2 Saturation ABG Base Excess ABG Hemoglobin ABG Carboxyhemoglobin POC ABG HHb (Measured) ABG Methemoglobin Oscar Test A-a O2 Difference Respiratory Index Hgb O2 Saturation Vent Mode Mechanical Rate FiO2 Tidal Volume PEEP Sodium Potassium Chloride Carbon Dioxide Anion Gap BUN Creatinine Est GFR ( Amer) Est GFR (Non-Af Amer) POC Glucose (mg/dL) 126 H 92 117 H Random Glucose Calcium Phosphorus Magnesium Total Bilirubin AST ALT Alkaline Phosphatase Total Protein Albumin Globulin Albumin/Globulin Ratio 12/03/17 12/03/17 12/03/17 04:40 05:49 06:39 WBC 12.2 H RBC 3.95 L Hgb 11.0 L Hct 33.4 L MCV 84.5 MCH 27.9 MCHC 33.1 RDW 16.7 H Plt Count 204 MPV 9.0 Neut % (Auto) 78.9 H Lymph % (Auto) 10.0 L [place] % (Auto) 9.8 Eos % (Auto) 0.8 Baso % (Auto) 0.5 Neut # (Auto) 9.7 H Lymph # (Auto) 1.2 [place] # (Auto) 1.2 H Eos # (Auto) 0.1 Baso # (Auto) 0.1 Puncture Site Rr pCO2 42 pO2 103 H HCO3 29.8 H ABG pH 7.47 H ABG Total CO2 31.9 H ABG O2 Saturation 97.8 ABG Base Excess 6.3 H ABG Hemoglobin 11.8 ABG Carboxyhemoglobin 1.0 POC ABG HHb (Measured) 2.2 ABG Methemoglobin 1.1 Oscar Test Pos A-a O2 Difference 558.0 Respiratory Index 5.4 Hgb O2 Saturation 95.8 Vent Mode Prvc Mechanical Rate 16 FiO2 100.0 Tidal Volume 500 PEEP 5 Sodium Potassium Chloride Carbon Dioxide Anion Gap BUN Creatinine Est GFR ( Amer) Est GFR (Non-Af Amer) POC Glucose (mg/dL) 106 Random Glucose Calcium Phosphorus Magnesium Total Bilirubin AST ALT Alkaline Phosphatase Total Protein Albumin Globulin Albumin/Globulin Ratio 12/03/17 06:40 WBC RBC Hgb Hct MCV MCH MCHC RDW Plt Count MPV Neut % (Auto) Lymph % (Auto) [place] % (Auto) Eos % (Auto) Baso % (Auto) Neut # (Auto) Lymph # (Auto) [place] # (Auto) Eos # (Auto) Baso # (Auto) Puncture Site pCO2 pO2 HCO3 ABG pH ABG Total CO2 ABG O2 Saturation ABG Base Excess ABG Hemoglobin ABG Carboxyhemoglobin POC ABG HHb (Measured) ABG Methemoglobin Oscar Test A-a O2 Difference Respiratory Index Hgb O2 Saturation Vent Mode Mechanical Rate FiO2 Tidal Volume PEEP Sodium 156 H Potassium 3.6 Chloride 117 H Carbon Dioxide 33 H Anion Gap 10 BUN 37 H Creatinine 1.2 Est GFR ( Amer) > 60 Est GFR (Non-Af Amer) 60 POC Glucose (mg/dL) Random Glucose 106 Calcium 7.4 L Phosphorus 2.3 L Magnesium 2.8 H Total Bilirubin 0.7 AST 25 ALT 25 Alkaline Phosphatase 63 Total Protein 5.9 L Albumin 2.6 L Globulin 3.3 Albumin/Globulin Ratio 0.8 L Fingerstick Blood Sugar Results: 106 Critical Care Progress Note - Nutrition Nutrition: Nutrition Category Date Time Status Heart Healthy Diet [DIET] Diets 11/30/17 Lunch Active Assessment/Plan - Assessment and Plan (Free Text) Assessment: 72M Respiratory distress, intubated, R/O PE, Bradycardia s/p pacer wire Plan: Psych: no acute issues Neuro: prior CVA Cardio: HTN d/c dopamine (Bruno) transvenous pacing catheter placed Pulm: Asthma, COPD intubated - FIO2 70%, RR 16, Tv 500, PEEP 5 septic shock possible 2/2 pneumonia vanco 1gm/meropenem 1gm duoneb concern for PE - CT angio today Acetylcysteine 6mL PO Q12 GI: no acute issues Renal/Uro: BPH continue flomax 0.4mg QD 1L LR fluid challenge Endo: no acute issues Electrolytes: hypokalemia kdur 15mmol ID: Septic shock (Mangia) vanco 1gm Zosyn Skin: wound culture Vitamin C zinc sulfate PPx: pepcid 20mg QD d/c lovenox 80mg Q12hr due to bleeding at IV site start eloquist 2.5mg po BID tomorrow <Vladislav Nunez - Last Filed: 12/03/17 15:33> CCU Subjective - Physician Review Critical Care Time Spent (in minutes): 35 CCU Objective - Vital Signs / Intake & Output Vital Signs (Last 4 hours): Vital Signs Temp Pulse Resp BP Pulse Ox 12/03/17 15:00 45 L 16 93 L 12/03/17 14:00 98.4 F 65 96 12/03/17 13:00 59 L 20 98 12/03/17 12:49 60 17 98/57 L 95 12/03/17 12:47 54 L 16 75/44 L 95 12/03/17 12:00 54 L 16 98 12/03/17 11:47 66 17 126/72 99 Intake and Output (Last 8hrs): Intake & Output 12/03/17 12/03/17 12/03/17 06:59 14:59 22:59 Intake Total 496 1928 110 Output Total 480 509 40 Balance 16 1419 70 Weight 202 lb 13.204 oz Intake: Intake, IV Amount 336 1698 80 Right Midline 252 Right Midline distal port 336 1446 80 Tube Feeding 160 230 30 Output: Urine 380 509 40 Urethral (Singh) 380 509 40 Stool 100 Emesis 0 0 Other: # Bowel Movements 0 0 - Medications Active Medications: Active Medications Generic Name Dose Route Start Last Admin Trade Name Freq PRN Reason Stop Dose Admin Acetylcysteine 6 ml 12/03/17 10:00 12/03/17 09:30 Acetylcysteine 20% PO 12/04/17 22:01 6 ml Q12 ABHIJEET Administration Albuterol/Ipratropium 3 ml 12/03/17 14:00 Duoneb 3 Mg/0.5 Mg (3 Ml) Ud INH RQ6 ABHIJEET Apixaban 2.5 mg 12/04/17 10:00 Eliquis PO BID ABHIJEET Ascorbic Acid 250 mg 12/02/17 10:00 12/03/17 09:33 Vitamin C 250 Mg Tab PO 250 mg DAILY ABHIJEET Administration Famotidine 20 mg 11/27/17 10:00 12/03/17 09:32 Pepcid PO 20 mg DAILY ABHIJEET Administration Vancomycin HCl 1 gm/ Sodium 200 mls @ 166.7 mls/hr 12/01/17 16:00 12/03/17 15 :09 Chloride IVPB 166.7 mls/hr Q24H ABHIJEET Administration Piperacillin Sod/Tazobactam 100 mls @ 200 mls/hr 12/02/17 10:00 12/03/17 09: 33 Sod 3.375 gm/ Sodium Chloride IVPB 12/03/17 16:29 200 mls/hr Q6H ABHIJEET Administration Sodium Chloride 1,000 mls @ 80 mls/hr 12/03/17 10:00 12/03/17 11:20 Sodium Chloride 0.9% IV 80 mls/hr .[id number] ABHIJEET Administration Piperacillin Sod/Tazobactam Sod 3.375 gm in 50 mls @ 100 mls/hr 12/03/17 22: 00 Zosyn 3.375 Gm Iv Premix IVPB Q6H ABHIJEET Insulin Aspart 0 unit 12/02/17 18:00 12/03/17 12:07 Novolog SC Not Given Q6H [facility] Protocol Multivitamins/Vitamin C 5 ml 12/02/17 10:00 12/03/17 09:31 Multi-Delyn Liquid PO 5 ml DAILY ABHIJEET Administration Tamsulosin HCl 0.4 mg 11/27/17 10:00 12/03/17 09:31 Flomax PO 0.4 mg DAILY ABHIJEET Administration Zinc Sulfate 220 mg 12/02/17 10:00 12/03/17 09:33 Zinc Sulfate 220 Mg Cap PO 220 mg DAILY ABHIJEET Administration - Patient Studies Lab Studies: Microbiology Studies 12/01/17 16:39 MRSA Culture (Admit) - Final Naris MRSA NOT DETECTED 12/01/17 17:52 Gram Stain - Final Trachasp Sputum Culture - Preliminary Gram Positive Cocci Lab Studies 12/03/17 12/03/17 12/03/17 Range/Units 11:57 06:40 06:39 WBC 12.2 H (4.8-10.8) K/uL RBC 3.95 L (4.40-5.90) Mil/uL Hgb 11.0 L (12.0-18.0) g/dL Hct 33.4 L (35.0-51.0) % MCV 84.5 (80.0-94.0) fL MCH 27.9 (27.0-31.0) pg MCHC 33.1 (33.0-37.0) g/dL RDW 16.7 H (11.5-14.5) % Plt Count 204 (130-400) K/uL MPV 9.0 (7.2-11.7) fL Neut % (Auto) 78.9 H (50.0-75.0) % Lymph % (Auto) 10.0 L (20.0-40.0) % [place] % (Auto) 9.8 (0.0-10.0) % Eos % (Auto) 0.8 (0.0-4.0) % Baso % (Auto) 0.5 (0.0-2.0) % Neut # (Auto) 9.7 H (1.8-7.0) K/uL Lymph # (Auto) 1.2 (1.0-4.3) K/uL [place] # (Auto) 1.2 H (0.0-0.8) K/uL Eos # (Auto) 0.1 (0.0-0.7) K/uL Baso # (Auto) 0.1 (0.0-0.2) K/uL Puncture Site pCO2 (35-45) mm/Hg pO2 (80-100) mm/Hg HCO3 (21-28) mmol/L ABG pH (7.35-7.45) ABG Total CO2 (22-28) mmol/L ABG O2 Saturation (95-98) % ABG Base Excess (-2.0-3.0) mmol/L ABG Hemoglobin (11.7-17.4) g/dL ABG Carboxyhemoglobin (0.5-1.5) % POC ABG HHb (Measured) (0.0-5.0) % ABG Methemoglobin (0.0-3.0) % Oscar Test A-a O2 Difference mm/Hg Respiratory Index Hgb O2 Saturation (95.0-98.0) % Vent Mode Mechanical Rate FiO2 % Tidal Volume PEEP Sodium 156 H (132-148) mmol/L Potassium 3.6 (3.6-5.2) mmol/L Chloride 117 H (98-107) mmol/L Carbon Dioxide 33 H (22-30) mmol/L Anion Gap 10 (10-20) BUN 37 H (9-20) mg/dL Creatinine 1.2 (0.8-1.5) mg/dL Est GFR ( Amer) > 60 Est GFR (Non-Af Amer) 60 POC Glucose (mg/dL) 121 H (65-110) mg/dL Random Glucose 106 (75-110) mg/dL Calcium 7.4 L (8.6-10.4) mg/dl Phosphorus 2.3 L (2.5-4.5) mg/dL Magnesium 2.8 H (1.6-2.3) mg/dL Total Bilirubin 0.7 (0.2-1.3) mg/dL AST 25 (17-59) U/L ALT 25 (21-72) U/L Alkaline Phosphatase 63 (38-126) U/L Total Protein 5.9 L (6.3-8.3) g/dL Albumin 2.6 L (3.5-5.0) g/dL Globulin 3.3 (2.2-3.9) gm/dL Albumin/Globulin Ratio 0.8 L (1.0-2.1) 12/03/17 12/03/17 12/03/17 Range/Units 05:49 04:40 00:12 WBC (4.8-10.8) K/uL RBC (4.40-5.90) Mil/uL Hgb (12.0-18.0) g/dL Hct (35.0-51.0) % MCV (80.0-94.0) fL MCH (27.0-31.0) pg MCHC (33.0-37.0) g/dL RDW (11.5-14.5) % Plt Count (130-400) K/uL MPV (7.2-11.7) fL Neut % (Auto) (50.0-75.0) % Lymph % (Auto) (20.0-40.0) % [place] % (Auto) (0.0-10.0) % Eos % (Auto) (0.0-4.0) % Baso % (Auto) (0.0-2.0) % Neut # (Auto) (1.8-7.0) K/uL Lymph # (Auto) (1.0-4.3) K/uL [place] # (Auto) (0.0-0.8) K/uL Eos # (Auto) (0.0-0.7) K/uL Baso # (Auto) (0.0-0.2) K/uL Puncture Site Rr pCO2 42 (35-45) mm/Hg pO2 103 H (80-100) mm/Hg HCO3 29.8 H (21-28) mmol/L ABG pH 7.47 H (7.35-7.45) ABG Total CO2 31.9 H (22-28) mmol/L ABG O2 Saturation 97.8 (95-98) % ABG Base Excess 6.3 H (-2.0-3.0) mmol/L ABG Hemoglobin 11.8 (11.7-17.4) g/dL ABG Carboxyhemoglobin 1.0 (0.5-1.5) % POC ABG HHb (Measured) 2.2 (0.0-5.0) % ABG Methemoglobin 1.1 (0.0-3.0) % Oscar Test Pos A-a O2 Difference 558.0 mm/Hg Respiratory Index 5.4 Hgb O2 Saturation 95.8 (95.0-98.0) % Vent Mode Prvc Mechanical Rate 16 FiO2 100.0 % Tidal Volume 500 PEEP 5 Sodium (132-148) mmol/L Potassium (3.6-5.2) mmol/L Chloride (98-107) mmol/L Carbon Dioxide (22-30) mmol/L Anion Gap (10-20) BUN (9-20) mg/dL Creatinine (0.8-1.5) mg/dL Est GFR ( Amer) Est GFR (Non-Af Amer) POC Glucose (mg/dL) 106 117 H (65-110) mg/dL Random Glucose (75-110) mg/dL Calcium (8.6-10.4) mg/dl Phosphorus (2.5-4.5) mg/dL Magnesium (1.6-2.3) mg/dL Total Bilirubin (0.2-1.3) mg/dL AST (17-59) U/L ALT (21-72) U/L Alkaline Phosphatase (38-126) U/L Total Protein (6.3-8.3) g/dL Albumin (3.5-5.0) g/dL Globulin (2.2-3.9) gm/dL Albumin/Globulin Ratio (1.0-2.1) 12/02/17 Range/Units 16:15 WBC (4.8-10.8) K/uL RBC (4.40-5.90) Mil/uL Hgb (12.0-18.0) g/dL Hct (35.0-51.0) % MCV (80.0-94.0) fL MCH (27.0-31.0) pg MCHC (33.0-37.0) g/dL RDW (11.5-14.5) % Plt Count (130-400) K/uL MPV (7.2-11.7) fL Neut % (Auto) (50.0-75.0) % Lymph % (Auto) (20.0-40.0) % [place] % (Auto) (0.0-10.0) % Eos % (Auto) (0.0-4.0) % Baso % (Auto) (0.0-2.0) % Neut # (Auto) (1.8-7.0) K/uL Lymph # (Auto) (1.0-4.3) K/uL [place] # (Auto) (0.0-0.8) K/uL Eos # (Auto) (0.0-0.7) K/uL Baso # (Auto) (0.0-0.2) K/uL Puncture Site pCO2 (35-45) mm/Hg pO2 (80-100) mm/Hg HCO3 (21-28) mmol/L ABG pH (7.35-7.45) ABG Total CO2 (22-28) mmol/L ABG O2 Saturation (95-98) % ABG Base Excess (-2.0-3.0) mmol/L ABG Hemoglobin (11.7-17.4) g/dL ABG Carboxyhemoglobin (0.5-1.5) % POC ABG HHb (Measured) (0.0-5.0) % ABG Methemoglobin (0.0-3.0) % Oscar Test A-a O2 Difference mm/Hg Respiratory Index Hgb O2 Saturation (95.0-98.0) % Vent Mode Mechanical Rate FiO2 % Tidal Volume PEEP Sodium (132-148) mmol/L Potassium (3.6-5.2) mmol/L Chloride (98-107) mmol/L Carbon Dioxide (22-30) mmol/L Anion Gap (10-20) BUN (9-20) mg/dL Creatinine (0.8-1.5) mg/dL Est GFR ( Amer) Est GFR (Non-Af Amer) POC Glucose (mg/dL) 92 (65-110) mg/dL Random Glucose (75-110) mg/dL Calcium (8.6-10.4) mg/dl Phosphorus (2.5-4.5) mg/dL Magnesium (1.6-2.3) mg/dL Total Bilirubin (0.2-1.3) mg/dL AST (17-59) U/L ALT (21-72) U/L Alkaline Phosphatase (38-126) U/L Total Protein (6.3-8.3) g/dL Albumin (3.5-5.0) g/dL Globulin (2.2-3.9) gm/dL Albumin/Globulin Ratio (1.0-2.1) Laboratory Results - last 24 hr 12/02/17 12/03/17 12/03/17 16:15 00:12 04:40 WBC RBC Hgb Hct MCV MCH MCHC RDW Plt Count MPV Neut % (Auto) Lymph % (Auto) [place] % (Auto) Eos % (Auto) Baso % (Auto) Neut # (Auto) Lymph # (Auto) [place] # (Auto) Eos # (Auto) Baso # (Auto) Puncture Site Rr pCO2 42 pO2 103 H HCO3 29.8 H ABG pH 7.47 H ABG Total CO2 31.9 H ABG O2 Saturation 97.8 ABG Base Excess 6.3 H ABG Hemoglobin 11.8 ABG Carboxyhemoglobin 1.0 POC ABG HHb (Measured) 2.2 ABG Methemoglobin 1.1 Oscar Test Pos A-a O2 Difference 558.0 Respiratory Index 5.4 Hgb O2 Saturation 95.8 Vent Mode Prvc Mechanical Rate 16 FiO2 100.0 Tidal Volume 500 PEEP 5 Sodium Potassium Chloride Carbon Dioxide Anion Gap BUN Creatinine Est GFR ( Amer) Est GFR (Non-Af Amer) POC Glucose (mg/dL) 92 117 H Random Glucose Calcium Phosphorus Magnesium Total Bilirubin AST ALT Alkaline Phosphatase Total Protein Albumin Globulin Albumin/Globulin Ratio 12/03/17 12/03/17 12/03/17 05:49 06:39 06:40 WBC 12.2 H RBC 3.95 L Hgb 11.0 L Hct 33.4 L MCV 84.5 MCH 27.9 MCHC 33.1 RDW 16.7 H Plt Count 204 MPV 9.0 Neut % (Auto) 78.9 H Lymph % (Auto) 10.0 L [place] % (Auto) 9.8 Eos % (Auto) 0.8 Baso % (Auto) 0.5 Neut # (Auto) 9.7 H Lymph # (Auto) 1.2 [place] # (Auto) 1.2 H Eos # (Auto) 0.1 Baso # (Auto) 0.1 Puncture Site pCO2 pO2 HCO3 ABG pH ABG Total CO2 ABG O2 Saturation ABG Base Excess ABG Hemoglobin ABG Carboxyhemoglobin POC ABG HHb (Measured) ABG Methemoglobin Oscar Test A-a O2 Difference Respiratory Index Hgb O2 Saturation Vent Mode Mechanical Rate FiO2 Tidal Volume PEEP Sodium 156 H Potassium 3.6 Chloride 117 H Carbon Dioxide 33 H Anion Gap 10 BUN 37 H Creatinine 1.2 Est GFR ( Amer) > 60 Est GFR (Non-Af Amer) 60 POC Glucose (mg/dL) 106 Random Glucose 106 Calcium 7.4 L Phosphorus 2.3 L Magnesium 2.8 H Total Bilirubin 0.7 AST 25 ALT 25 Alkaline Phosphatase 63 Total Protein 5.9 L Albumin 2.6 L Globulin 3.3 Albumin/Globulin Ratio 0.8 L 12/03/17 11:57 WBC RBC Hgb Hct MCV MCH MCHC RDW Plt Count MPV Neut % (Auto) Lymph % (Auto) [place] % (Auto) Eos % (Auto) Baso % (Auto) Neut # (Auto) Lymph # (Auto) [place] # (Auto) Eos # (Auto) Baso # (Auto) Puncture Site pCO2 pO2 HCO3 ABG pH ABG Total CO2 ABG O2 Saturation ABG Base Excess ABG Hemoglobin ABG Carboxyhemoglobin POC ABG HHb (Measured) ABG Methemoglobin [place] Test A-a O2 Difference Respiratory Index Hgb O2 Saturation Vent Mode Mechanical Rate FiO2 Tidal Volume PEEP Sodium Potassium Chloride Carbon Dioxide Anion Gap BUN Creatinine Est GFR ( Amer) Est GFR (Non-Af Amer) POC Glucose (mg/dL) 121 H Random Glucose Calcium Phosphorus Magnesium Total Bilirubin AST ALT Alkaline Phosphatase Total Protein Albumin Globulin Albumin/Globulin Ratio Critical Care Progress Note - Nutrition Nutrition: Nutrition Category Date Time Status Heart Healthy Diet [DIET] Diets 11/30/17 Lunch Active Assessment/Plan - Assessment and Plan (Free Text) Plan: Patient seen and examined at bedside with above resident. Patient's chart reviewed and verified. -Intubated for airway protection: continue, patient with large A-a gradient, CXR c/w right sided effusion, PE ruled out CT angion neg, dopplers upper E (+), eliquis -Leukocytosis mild: no fevers, culture NGSF, empirically on abx, f/u vanco level -sick sinus syndrome/Tachy/giselle: resulting in previous intubation, suspect sick sinus syndrome, placed a pacing wire, off dopamine -continue NG tube feeds -dvt ppx: eliquis -PUD ppx pepcid cc time 35 minutes - Date & Time Date: 12/03/17 Time: 11:20
--- NOTE | 2017-12-03 11:07 | VASCLAB ---
PROCEDURE: Upper Extremity Venous Duplex Exam HISTORY: swelling PRIORS: None. TECHNIQUE: Bilateral upper extremity, internal jugular, subclavian, axillary, brachial, ulnar, radial, basilic and upper cephalic veins were evaluated. Flow was assessed with color Doppler, compressibility, assessment of phasic flow and augmentation response. Report prepared by ROLAND Villanueva, RVT FINDINGS: RIGHT: 1. Internal Jugular: 1.1. Compressibility - Fully compressible: Thrombus - None : Flow - Phasic: Augmentation -Normal: Reflux - None. 2. Subclavian: 2.1. Compressibility - Fully compressible: Thrombus - None : Flow - Phasic: Augmentation -Normal: Reflux - None. 3. Axillary: 3.1. Compressibility - Fully compressible: Thrombus - None : Flow - Phasic: Augmentation -Normal: Reflux - None. 4. Brachial: 4.1. Compressibility - Fully compressible: Thrombus - None: Flow - Phasic: Augmentation -Normal: Reflux - None. 5. Ulnar: 5.1. Compressibility - Fully compressible: Thrombus - None: Flow - Phasic: Augmentation -Normal: Reflux - None. 6. Radial: 6.1. Compressibility - Fully compressible: Thrombus - None: Flow - Phasic: Augmentation - Normal: Reflux - None. 7. Cephalic: 7.1. Compressibility - Fully compressible: Thrombus - None: Flow - Phasic: Augmentation -Normal: Reflux - None. 8. Basilic: 8.1. Compressibility - Incompressible: Thrombus - Chronic: Flow - Absent : Augmentation -None: Reflux - None. LEFT: 1. Internal Jugular: 1.1. Compressibility - Fully compressible: Thrombus - None : Flow - Phasic: Augmentation -Normal: Reflux - None. 2. Subclavian: 2.1. Compressibility - Fully compressible: Thrombus - None : Flow - Phasic: Augmentation -Normal: Reflux - None. 3. Axillary: 3.1. Compressibility - Fully compressible: Thrombus - None : Flow - Phasic: Augmentation -Normal: Reflux - None. 4. Brachial: 4.1. Compressibility - Fully compressible: Thrombus - None: Flow - Phasic: Augmentation -Normal: Reflux - None. 5. Ulnar: 5.1. Compressibility - Fully compressible: Thrombus - None: Flow - Phasic: Augmentation -Normal: Reflux - None. 6. Radial: 6.1. Compressibility - Fully compressible: Thrombus - None: Flow - Phasic: Augmentation - Normal: Reflux - None. 7. Cephalic: 7.1. Compressibility - Fully compressible: Thrombus - None: Flow - Phasic: Augmentation -Normal: Reflux - None. 8. Basilic: 8.1. Compressibility - Fully compressible: Thrombus - None: Flow - Phasic : Augmentation -Normal: Reflux - None. OTHER FINDINGS: MARIA Mejia notified about the findings. 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 No evidence of deep vein thrombosis of the right upper extremity with excellent venous flow. Normal valve function noted of the right side. Left: No evidence of vein thrombosis of the left upper extremity with excellent venous flow. Normal valve function noted of the left side.
--- NOTE | 2017-12-03 11:08 | VASCLAB ---
PROCEDURE: Lower Extremity Venous Duplex Exam. HISTORY: leg edema, hypoxic PRIORS: None. TECHNIQUE: Bilateral common femoral, femoral, popliteal and posterior tibial, peroneal and great saphenous veins were evaluated. Flow was assessed with color Doppler, compressibility, assessment of phasic flow and augmentation response. Report prepared by [place] Green, ROLAND, RVT FINDINGS: RIGHT: 1. Common Femoral Vein: 1.1. Compressibility - Fully compressible: Thrombus - None : Flow - Phasic: Augmentation -Normal: Reflux - None. 2. Femoral Vein: 2.1. Compressibility - Fully compressible: Thrombus - None : Flow - Phasic: Augmentation -Normal: Reflux - None. 3. Popliteal Vein: 3.1. Compressibility - Fully compressible: Thrombus - None : Flow - Phasic: Augmentation -Normal: Reflux - None. 4. Posterior Tibial Vein: 4.1. Compressibility - : Thrombus - : Flow - : Augmentation -: Reflux - . 5. Peroneal Vein: 5.1. Compressibility - : Thrombus - : Flow - : Augmentation -: Reflux - . 6. Great Saphenous Vein: 6.1. Compressibility - Fully compressible: Thrombus - None: Flow - Phasic: Augmentation - Normal: Reflux - None. LEFT: 1. Common Femoral Vein: 1.1. Compressibility - Fully compressible: Thrombus - None: Flow - Phasic: Augmentation -Normal: Reflux - None. 2. Femoral Vein: 2.1. Compressibility - Fully compressible: Thrombus - None: Flow - Phasic: Augmentation -Normal: Reflux - None. 3. Popliteal Vein: 3.1. Compressibility - Fully compressible: Thrombus - None : Flow - Phasic: Augmentation -Normal: Reflux - None. 4. Posterior Tibial Vein: 4.1. Compressibility - : Thrombus - : Flow - : Augmentation -: Reflux - . 5. Peroneal Vein: 5.1. Compressibility - : Thrombus - : Flow - : Augmentation -: Reflux - . 6. Great Saphenous Vein: 6.1. Compressibility - Fully compressible: Thrombus - None: Flow - Phasic: Augmentation - Normal: Reflux - None. OTHER FINDINGS: Right: Due to bandage on the calf, the right peroneal and posterior tibial vein are not visualized. Left: Due to patient possition, the left peroneal and posterior tibial vein are not visualized. IMPRESSION: Right: No evidence of deep or superficial vein thrombosis of the right lower extremity. Normal valve function noted of the right side. Left: No evidence of deep or superficial vein thrombosis of the left lower extremity. Normal valve function noted of the left side.
[2017-12-03] MEDS: Sodium Chloride 0.9% 1,000 ML IV SCH ×2 (11:20→22:30)
[2017-12-03] MEDS ORDERED: Iodixanol 320 MG/ML 100 ML BOTTLE IV ONE (12:11)
--- NOTE | 2017-12-03 13:43 | PN ---
DATE: SUBJECTIVE: The patient is on ventilator, supportive care. No change in condition noted. Adrianne Stanley MD
--- NOTE | 2017-12-03 14:46 | CT ---
PROCEDURE: CT Chest with contrast (Pulmonary Angiogram) HISTORY: VQ mismatch COMPARISON: None available. TECHNIQUE: Axial computed tomography images were obtained of the chest in the pulmonary arterial phase of enhancement. Coronal and sagittal reformatted images were created and reviewed. Intravenous contrast dose: 100 mL Visipaque 320 Radiation dose: Total exam DLP = 561.64 mGy-cm. This CT exam was performed using one or more of the following dose reduction techniques: Automated exposure control, adjustment of the mA and/or kV according to patient size, and/or use of iterative reconstruction technique. FINDINGS: PULMONARY ARTERIES: Unremarkable. No pulmonary embolism. AORTA: No acute findings. No thoracic aortic aneurysm. LUNGS: Centrilobular pulmonary emphysema. . Extensive bilateral lower lobe segmental/subsegmental atelectasis, with mild bilateral upper lobe subsegmental atelectasis as well. PLEURAL SPACES: Small right pleural effusion. Trace left pleural effusion. No pneumothorax. HEART: Mild cardiomegaly. Nasogastric tube. Endotracheal tube tip approximately 4.4 cm above the tracheal eri. LYMPH NODES: No lymphadenopathy. BONES, CHEST WALL: Unremarkable. No fracture or destructive lesion OTHER FINDINGS: Mural thickening of gallbladder, nonspecific. Consider correlation with abdominal ultrasound. Nasogastric tube extends to the stomach. IMPRESSION: No evidence of pulmonary embolism. Extensive bilateral lower lobe segmental/subsegmental atelectasis. Small right and trace left pleural effusion. Centrilobular pulmonary emphysema. ET tube. NG tube. Possible mural thickening of the gallbladder. Consider correlation with abdominal ultrasound examination.
[2017-12-03] MEDS: Vancomycin 1 GM in Sodium Chloride 0.9% 200 ML IVPB SCH (15:09)
--- NOTE | 2017-12-03 18:06 | CP.PCM.PN ---
Subjective - Date & Time of Evaluation Date of Evaluation: 12/03/17 Time of Evaluation: 07:00 - Subjective Subjective: s/p CTA- no PE extensive infiltrates IV rx in progress cultures pending Objective - Vital Signs/Intake and Output Vital Signs (last 24 hours): Temp Pulse Resp BP Pulse Ox 98.4 F 62 19 92/65 L 96 12/03/17 16:00 12/03/17 17:00 12/03/17 17:00 12/03/17 16:47 12/03/17 17:00 Intake and Output: 12/03/17 12/03/17 06:59 18:59 Intake Total 1027 2498 Output Total 745 549 Balance 282 1949 - Medications Medications: Current Medications Acetylcysteine (Acetylcysteine 20%) 6 ml PO Q12 [facility] Stop: 12/04/17 22:01 Last Admin: 12/03/17 09:30 Dose: 6 ml Albuterol/Ipratropium (Duoneb 3 Mg/0.5 Mg (3 Ml) Ud) 3 ml INH RQ6 [facility] Apixaban (Eliquis) 2.5 mg PO BID [facility] Ascorbic Acid (Vitamin C 250 Mg Tab) 250 mg PO DAILY [facility] Last Admin: 12/03/17 09:33 Dose: 250 mg Famotidine (Pepcid) 20 mg PO DAILY [facility] Last Admin: 12/03/17 09:32 Dose: 20 mg Vancomycin HCl 1 gm/ Sodium (Chloride) 200 mls @ 166.7 mls/hr IVPB Q24H [facility] Last Admin: 12/03/17 15:09 Dose: 166.7 mls/hr Sodium Chloride (Sodium Chloride 0.9%) 1,000 mls @ 80 mls/hr IV .[id number] [facility] Last Admin: 12/03/17 11:20 Dose: 80 mls/hr Piperacillin Sod/Tazobactam Sod (Zosyn 3.375 Gm Iv Premix) 3.375 gm in 50 mls @ 100 mls/hr IVPB Q6H [facility] Insulin Aspart (Novolog) 0 unit SC Q6H [facility] PRN Reason: Protocol Last Admin: 12/03/17 12:07 Dose: Not Given Multivitamins/Vitamin C (Multi-Delyn Liquid) 5 ml PO DAILY [facility] Last Admin: 12/03/17 09:31 Dose: 5 ml Tamsulosin HCl (Flomax) 0.4 mg PO DAILY [facility] Last Admin: 12/03/17 09:31 Dose: 0.4 mg Zinc Sulfate (Zinc Sulfate 220 Mg Cap) 220 mg PO DAILY [facility] Last Admin: 12/03/17 09:33 Dose: 220 mg - Labs Labs: 12/03/17 06:39 12/03/17 06:40 PT 16.6 SECONDS (9.7-12.2) H 11/26/17 17:31 INR 1.5 11/26/17 17:31 APTT 31 SECONDS (21-34) 11/26/17 17:31 - Constitutional Appears: Chronically Ill - Head Exam Head Exam: NORMOCEPHALIC - Eye Exam Eye Exam: PERRL - ENT Exam ENT Exam: Mucous Membranes Dry - Neck Exam Neck Exam: absent: Lymphadenopathy - Respiratory Exam Respiratory Exam: Decreased Breath Sounds, Rhonchi - Cardiovascular Exam Cardiovascular Exam: REGULAR RHYTHM, +S1, +S2 - GI/Abdominal Exam GI & Abdominal Exam: Distended, Soft. absent: Tenderness - Rectal Exam Rectal Exam: Deferred - Exam Exam: NORMAL INSPECTION - Extremities Exam Extremities Exam: absent: Pedal Edema - Back Exam Back Exam: absent: CVA tenderness (L), CVA tenderness (R) - Neurological Exam Neurological Exam: Altered Assessment and Plan (1) Acute urinary retention Status: Acute (2) Fever Status: Acute (3) Sepsis associated hypotension Status: Acute (4) Pneumonia Status: Acute (5) Respiratory failure Status: Acute - Assessment and Plan (Free Text) Assessment: await repeat cultures cont empiric IV rx
--- NOTE | 2017-12-03 19:19 | CARD ---
APPROVED REPORT EKG Measurement Heart [id number] [place] [id number] <Conclusion> Sinus bradycardia Otherwise normal ECG
[2017-12-03] MEDS: Piperacill/Tazo 3.375gm in Dex 3.375 GM/50 ML BAG IVPB SCH (21:30)
[2017-12-04] MEDS: (Novolog) Insulin Aspart, Recombinant 100 u/ml 10 ml vial SC SCH ×4 (00:29→18:20)
[2017-12-04] MEDS: Albuterol-Ipratrop 3 mg / 0.5 (3 ml) UD INH SCH ×4 (01:18→19:22)
[2017-12-04] MEDS: Sodium Chloride 0.9% 1,000 ML IV SCH ×3 (02:16→23:30)
[2017-12-04] MEDS: Piperacill/Tazo 3.375gm in Dex 3.375 GM/50 ML BAG IVPB SCH ×4 (03:27→22:00)
--- NOTE | 2017-12-04 05:34 | CP.PCM.PN ---
Subjective - Date & Time of Evaluation Date of Evaluation: 12/04/17 Time of Evaluation: 05:32 - Subjective Subjective: CT surgery progress note for Dr. Selvin Jones, PGY-1 Pt S & E at bedside. Pt intubated, sedated, arousable to verbal stimuli. Denies any problems. on [facility] vent- PRVC 65%, PEEP 5, RR 16, TV 500. Per nursing, no acute events overnight, some hypotension overnight. Objective - Vital Signs/Intake and Output Vital Signs (last 24 hours): Temp Pulse Resp BP Pulse Ox 98.7 F 59 L 16 100/63 96 12/04/17 00:00 12/04/17 01:47 12/04/17 01:47 12/04/17 00:46 12/04/17 01:47 Intake and Output: 12/03/17 12/04/17 18:59 06:59 Intake Total 2618 1130 Output Total 849 635 Balance 1769 495 - Medications Medications: Current Medications Acetylcysteine (Acetylcysteine 20%) 6 ml PO Q12 [facility] Stop: 12/04/17 22:01 Last Admin: 12/03/17 21:28 Dose: 6 ml Albuterol/Ipratropium (Duoneb 3 Mg/0.5 Mg (3 Ml) Ud) 3 ml INH RQ6 [facility] Last Admin: 12/04/17 01:18 Dose: 3 ml Apixaban (Eliquis) 2.5 mg PO BID [facility] Ascorbic Acid (Vitamin C 250 Mg Tab) 250 mg PO DAILY [facility] Last Admin: 12/03/17 09:33 Dose: 250 mg Famotidine (Pepcid) 20 mg PO DAILY [facility] Last Admin: 12/03/17 09:32 Dose: 20 mg Vancomycin HCl 1 gm/ Sodium (Chloride) 200 mls @ 166.7 mls/hr IVPB Q24H [facility] Last Admin: 12/03/17 15:09 Dose: 166.7 mls/hr Sodium Chloride (Sodium Chloride 0.9%) 1,000 mls @ 80 mls/hr IV .[id number] [facility] Last Admin: 12/04/17 02:16 Dose: 80 mls/hr Piperacillin Sod/Tazobactam Sod (Zosyn 3.375 Gm Iv Premix) 3.375 gm in 50 mls @ 100 mls/hr IVPB Q6H [facility] Last Admin: 12/04/17 03:27 Dose: 100 mls/hr Insulin Aspart (Novolog) 0 unit SC Q6H [facility] PRN Reason: Protocol Last Admin: 12/04/17 00:29 Dose: Not Given Multivitamins/Vitamin C (Multi-Delyn Liquid) 5 ml PO DAILY [facility] Last Admin: 12/03/17 09:31 Dose: 5 ml Tamsulosin HCl (Flomax) 0.4 mg PO DAILY [facility] Last Admin: 12/03/17 09:31 Dose: 0.4 mg Zinc Sulfate (Zinc Sulfate 220 Mg Cap) 220 mg PO DAILY [facility] Last Admin: 12/03/17 09:33 Dose: 220 mg - Labs Labs: 12/03/17 06:39 12/03/17 06:40 PT 16.6 SECONDS (9.7-12.2) H 11/26/17 17:31 INR 1.5 11/26/17 17:31 APTT 31 SECONDS (21-34) 11/26/17 17:31 - Constitutional Appears: Non-toxic, No Acute Distress - Head Exam Head Exam: ATRAUMATIC, NORMAL INSPECTION, NORMOCEPHALIC - Eye Exam Eye Exam: EOMI, Normal appearance - ENT Exam ENT Exam: Mucous Membranes Dry Additional comments: ET and feeding tubes in place - Neck Exam Additional comments: R IJ in place- no drainage noted - Respiratory Exam Respiratory Exam: NORMAL BREATHING PATTERN (on mechanical vent) - Cardiovascular Exam Cardiovascular Exam: Bradycardia - GI/Abdominal Exam GI & Abdominal Exam: Distended (and obese), Soft. absent: Firm, Guarding, Rigid - Extremities Exam Extremities Exam: Pedal Edema (bilateral). absent: Normal Inspection (Right foot with dressing in place; airboots in place bilaterally) - Neurological Exam Neurological Exam: Awake - Psychiatric Exam Additional comments: intubated - Skin Skin Exam: Dry, Intact, Normal Color, Warm Assessment and Plan - Assessment and Plan (Free Text) Assessment: 72 M presents s/p code blue intubated for respiratory failure with small B/L pleural effusions- stable Plan: CT chest- No evidence of pulmonary embolism. Extensive bilateral lower lobe segmental/subsegmental atelectasis. Small right and trace left pleural effusion. Centrilobular pulmonary emphysema. ET tube. NG tube. Possible mural thickening of the gallbladder. Consider correlation with abdominal ultrasound examination. s/p transvenous pacemaker placement cont IV Abx No CT surgical intervention at this time Cont DVT/GI ppx Cont mgmt as per primary and ICU teams Will DW Dr. López Jones, PGY-1
[2017-12-04 06:54] LABS: BASO % 0.4 % (0.0-2.0); EOS # 0.2 K/uL (0.0-0.7); EOS % 1.9 % (0.0-4.0); HEMOGLOBIN 11.1 g/dL (12.0-18.0); LYMPH # 0.9 K/uL (1.0-4.3); LYMPH % 7.2 % (20.0-40.0); MEAN CELL VOLUME 84.4 fL (80.0-94.0); MEAN CORPUSCULAR HEMOGLOBIN 29.3 pg (27.0-31.0); MEAN CORPUSCULAR HGB CONC 34.6 g/dL (33.0-37.0); MEAN PLATELET VOLUME 8.8 fL (7.2-11.7); MONO # 0.8 K/uL (0.0-0.8); MONO % 6.9 % (0.0-10.0); NEUT # 10.2 K/uL (1.8-7.0); NEUT % 83.6 % (50.0-75.0); PLATELET COUNT 214 K/uL (130-400); RBC 3.79 Mil/uL (4.40-5.90); RED CELL DISTRIBUTION WIDTH 16.8 % (11.5-14.5); WHITE BLOOD COUNT 12.2 K/uL (4.8-10.8)
[2017-12-04 07:15] LABS: ALB/GLOB RATIO 0.7 (1.0-2.1); ALBUMIN 2.5 g/dL (3.5-5.0); ALT/SGPT 27 U/L (21-72); AST/SGOT 24 U/L (17-59); BLOOD UREA NITROGEN 29 mg/dL (9-20); CALCIUM 7.5 mg/dl (8.6-10.4); GFR AFRICAN-AMERICAN > 60; GFR NON-AFRICAN AMERICAN 60; MAGNESIUM 2.6 mg/dL (1.6-2.3)
[2017-12-04 08:59] LABS: ABG ALLEN TEST PO; ARTERIAL BLOOD GAS HCO3 29.3 mmol/L (21-28); ARTERIAL BLOOD GAS O2 SAT 92.9 % (95-98); ARTERIAL BLOOD GAS PCO2 44 mm/Hg (35-45); ARTERIAL BLOOD GAS PH 7.45 (7.35-7.45); ARTERIAL BLOOD GAS PO2 58 mm/Hg (80-100)
[2017-12-04] MEDS: Acetylcysteine 20% Inhal Soln (4ml) PO SCH ×2 (09:20→22:15)
[2017-12-04] MEDS: Multiple Vitamins Oral Solution PO SCH (09:21)
[2017-12-04 10:27] LABS: EOSINOPHIL 1 % (0-4); LYMPHOCYTE 4 % (20-40); MONOCYTE 5 % (0-10); NEUTROPHIL 90 % (50-75); TOTAL CELLS COUNTED 100
[2017-12-04 10:28] LABS: PLATELET ESTIMATE NORMAL (NORMAL)
[2017-12-04 10:29] LABS: ANISOCYTOSIS SLIGHT; POIKILOCYTOSIS SLIGHT
[2017-12-04 10:30] LABS: POLYCHROMIC SLIGHT
--- NOTE | 2017-12-04 11:01 | CP.CCUPN ---
CCU Subjective - Physician Review Events Since Last Encounter (Free Text): 12/04/17 11:01 72-year-old male with history of congestive heart failure, COPD, hypertension, CVA and BPH. Patient was hospitalized on May 26, with the SOB and hypotension. Patient developed a cardiac arrest, CODE BLUE was called on generated as 2017. Patient is currently an intubated. Patient is sedated. Patient yesterday had CT of the chest or to rule out pulmonary embolism, which was negative. Currently patient is needing increasing FiO2 70%. Patient is sedated. Vital signs hypertension noted. Patient has a pacemaker externally, and the rate was placed at 45, patient basal rate is 56 sinus rhythm. Blood pressure is 86/46. Saturation is 96%. Chest bilateral good air entry. Irregular heart sound. Abdomen nontender. Patient's lab CBD Chest x-ray showing pulmonary edema, right lower lung pneumonia and atelectasis WBC 12.2 renal function stable Blood gas analysis hypoxic with the elevated sodium level overall prognosis is not good. Assessment and recommendation: 72 male with history of CHF heart failure COPD hypertension and CVA BPH. Admitted with respiratory insufficiency on ventilator. Bilateral lung pneumonia, mostly in the right side, gram-positive culture from the sputum positive On IV antibiotic, vancomycin level is being monitored, infectious disease follow -up Continue the supportive care. Overall prognosis is guarded CCU Objective - Vital Signs / Intake & Output Vital Signs (Last 4 hours): Vital Signs Temp Pulse Resp BP Pulse Ox 12/04/17 09:00 98.3 F 65 20 93 L 12/04/17 08:47 88/48 L 12/04/17 08:00 72 22 92 L 12/04/17 07:46 106/57 L Intake and Output (Last 8hrs): Intake & Output 12/03/17 12/04/17 12/04/17 22:59 06:59 14:59 Intake Total 1180 1030 390 Output Total 640 520 215 Balance 540 510 175 Weight 179 lb 0.8 oz Intake: Intake, IV Amount 870 640 240 Right Midline 200 Right Midline distal port 670 640 240 Tube Feeding 310 390 150 Output: Urine 640 520 215 Urethral (Singh) 640 520 215 - Physical Exam Head: Positive for: Atraumatic, Normocephalic Pupils: Positive for: PERRL Mouth: Positive for: Moist Mucous Membranes Respiratory/Chest: Positive for: Other (intubated) Abdomen: Positive for: Normal Bowel Sounds. Negative for: Tenderness, Distention, Peritoneal Signs Psychiatric: Positive for: Alert, Oriented x 3 - Medications Active Medications: Active Medications Generic Name Dose Route Start Last Admin Trade Name Freq PRN Reason Stop Dose Admin Acetylcysteine 6 ml 12/03/17 10:00 12/04/17 09:20 Acetylcysteine 20% PO 12/04/17 22:01 6 ml Q12 ABHIJEET Administration Albuterol/Ipratropium 3 ml 12/03/17 14:00 12/04/17 08:20 Duoneb 3 Mg/0.5 Mg (3 Ml) Ud INH 3 ml RQ6 ABHIJEET Administration Apixaban 2.5 mg 12/04/17 10:00 12/04/17 09:20 Eliquis PO 2.5 mg BID ABHIJEET Administration Ascorbic Acid 250 mg 12/02/17 10:00 12/04/17 09:20 Vitamin C 250 Mg Tab PO 250 mg DAILY ABHIJEET Administration Famotidine 20 mg 11/27/17 10:00 12/04/17 09:21 Pepcid PO 20 mg DAILY ABHIJEET Administration Vancomycin HCl 1 gm/ Sodium 200 mls @ 166.7 mls/hr 12/01/17 16:00 12/03/17 15 :09 Chloride IVPB 166.7 mls/hr Q24H ABHIJEET Administration Sodium Chloride 1,000 mls @ 80 mls/hr 12/03/17 10:00 12/04/17 02:16 Sodium Chloride 0.9% IV 80 mls/hr .[id number] ABHIJEET Administration Piperacillin Sod/Tazobactam Sod 3.375 gm in 50 mls @ 100 mls/hr 12/03/17 22: 00 12/04/17 09:52 Zosyn 3.375 Gm Iv Premix IVPB 100 mls/hr Q6H ABHIJEET Administration Insulin Aspart 0 unit 12/02/17 18:00 12/04/17 06:00 Novolog SC Not Given Q6H ABHIJEET Protocol Multivitamins/Vitamin C 5 ml 12/02/17 10:00 12/04/17 09:21 Multi-Delyn Liquid PO 5 ml DAILY ABHIJEET Administration Tamsulosin HCl 0.4 mg 11/27/17 10:00 12/04/17 09:20 Flomax PO 0.4 mg DAILY ABHIJEET Administration Zinc Sulfate 220 mg 12/02/17 10:00 12/04/17 09:21 Zinc Sulfate 220 Mg Cap PO 220 mg DAILY ABHIJEET Administration - Patient Studies Lab Studies: Microbiology Studies 12/01/17 16:39 MRSA Culture (Admit) - Final Naris MRSA NOT DETECTED 12/01/17 17:52 Gram Stain - Final Trachasp Sputum Culture - Preliminary Gram Positive Cocci Lab Studies 12/04/17 12/04/17 12/04/17 Range/Units 06:50 06:40 06:38 WBC 12.2 H (4.8-10.8) K/uL RBC 3.79 L (4.40-5.90) Mil/uL Hgb 11.1 L (12.0-18.0) g/dL Hct 32.0 L (35.0-51.0) % MCV 84.4 (80.0-94.0) fL MCH 29.3 (27.0-31.0) pg MCHC 34.6 (33.0-37.0) g/dL RDW 16.8 H (11.5-14.5) % Plt Count 214 (130-400) K/uL MPV 8.8 (7.2-11.7) fL Neut % (Auto) 83.6 H (50.0-75.0) % Lymph % (Auto) 7.2 L (20.0-40.0) % Phillips % (Auto) 6.9 (0.0-10.0) % Eos % (Auto) 1.9 (0.0-4.0) % Baso % (Auto) 0.4 (0.0-2.0) % Neut # (Auto) 10.2 H (1.8-7.0) K/uL Lymph # (Auto) 0.9 L (1.0-4.3) K/uL Phillips # (Auto) 0.8 (0.0-0.8) K/uL Eos # (Auto) 0.2 (0.0-0.7) K/uL Baso # (Auto) 0.0 (0.0-0.2) K/uL Neutrophils % (Manual) 90 H (50-75) % Lymphocytes % (Manual) 4 L (20-40) % Monocytes % (Manual) 5 (0-10) % Eosinophils % (Manual) 1 (0-4) % Platelet Estimate Normal (NORMAL) Polychromasia Slight Poikilocytosis (manual Slight Anisocytosis (manual) Slight Puncture Site pCO2 (35-45) mm/Hg pO2 (80-100) mm/Hg HCO3 (21-28) mmol/L ABG pH (7.35-7.45) ABG Total CO2 (22-28) mmol/L ABG O2 Saturation (95-98) % ABG Base Excess (-2.0-3.0) mmol/L Oscar Test ABG Potassium (3.6-5.2) mmol/L A-a O2 Difference mm/Hg Respiratory Index Sodium 158 H (132-148) mmol/l Chloride 119 H (98-107) mmol/L Glucose (75-110) mg/dl Lactate (0.7-2.1) mmol/L Vent Mode Mechanical Rate FiO2 % Tidal Volume PEEP Crit Value Called To Crit Value Called By Crit Value Read Back Blood Gas Notified Time Potassium 3.7 (3.6-5.2) mmol/L Carbon Dioxide 32 H (22-30) mmol/L Anion Gap 10 (10-20) BUN 29 H (9-20) mg/dL Creatinine 1.2 (0.8-1.5) mg/dL Est GFR ( Amer) > 60 Est GFR (Non-Af Amer) 60 POC Glucose (mg/dL) 131 H (65-110) mg/dL Random Glucose 130 H (75-110) mg/dL Calcium 7.5 L (8.6-10.4) mg/dl Phosphorus 3.3 (2.5-4.5) mg/dL Magnesium 2.6 H (1.6-2.3) mg/dL Total Bilirubin 0.6 (0.2-1.3) mg/dL AST 24 (17-59) U/L ALT 27 (21-72) U/L Alkaline Phosphatase 73 (38-126) U/L Total Protein 5.9 L (6.3-8.3) g/dL Albumin 2.5 L (3.5-5.0) g/dL Globulin 3.4 (2.2-3.9) gm/dL Albumin/Globulin Ratio 0.7 L (1.0-2.1) Arterial Blood Potassium (3.6-5.2) mmol/L Vancomycin Trough (5.0-10.0) ug/mL 12/04/17 12/04/17 12/03/17 Range/Units 06:38 05:02 23:56 WBC (4.8-10.8) K/uL RBC (4.40-5.90) Mil/uL Hgb (12.0-18.0) g/dL Hct (35.0-51.0) % MCV (80.0-94.0) fL MCH (27.0-31.0) pg MCHC (33.0-37.0) g/dL RDW (11.5-14.5) % Plt Count (130-400) K/uL MPV (7.2-11.7) fL Neut % (Auto) (50.0-75.0) % Lymph % (Auto) (20.0-40.0) % Phillips % (Auto) (0.0-10.0) % Eos % (Auto) (0.0-4.0) % Baso % (Auto) (0.0-2.0) % Neut # (Auto) (1.8-7.0) K/uL Lymph # (Auto) (1.0-4.3) K/uL Phillips # (Auto) (0.0-0.8) K/uL Eos # (Auto) (0.0-0.7) K/uL Baso # (Auto) (0.0-0.2) K/uL Neutrophils % (Manual) (50-75) % Lymphocytes % (Manual) (20-40) % Monocytes % (Manual) (0-10) % Eosinophils % (Manual) (0-4) % Platelet Estimate (NORMAL) Polychromasia Poikilocytosis (manual Anisocytosis (manual) Puncture Site Rra pCO2 44 (35-45) mm/Hg pO2 58 L (80-100) mm/Hg HCO3 29.3 H (21-28) mmol/L ABG pH 7.45 (7.35-7.45) ABG Total CO2 32.0 H (22-28) mmol/L ABG O2 Saturation 92.9 L (95-98) % ABG Base Excess 5.8 H (-2.0-3.0) mmol/L Oscar Test Po ABG Potassium 3.6 (3.6-5.2) mmol/L A-a O2 Difference 350.0 mm/Hg Respiratory Index 6.0 Sodium 160.0 H* (132-148) mmol/l Chloride 127.0 H (98-107) mmol/L Glucose 138 H (75-110) mg/dl Lactate 1.1 (0.7-2.1) mmol/L Vent Mode Prvc Mechanical Rate 16 FiO2 65.0 % Tidal Volume 500 PEEP 5 Crit Value Called To Crit Value Called By Sheldon de leon,innersole fitter Crit Value Read Back Y Blood Gas Notified Time 900 Potassium (3.6-5.2) mmol/L Carbon Dioxide (22-30) mmol/L Anion Gap (10-20) BUN (9-20) mg/dL Creatinine (0.8-1.5) mg/dL Est GFR ( Amer) Est GFR (Non-Af Amer) POC Glucose (mg/dL) 123 H (65-110) mg/dL Random Glucose (75-110) mg/dL Calcium (8.6-10.4) mg/dl Phosphorus (2.5-4.5) mg/dL Magnesium (1.6-2.3) mg/dL Total Bilirubin (0.2-1.3) mg/dL AST (17-59) U/L ALT (21-72) U/L Alkaline Phosphatase (38-126) U/L Total Protein (6.3-8.3) g/dL Albumin (3.5-5.0) g/dL Globulin (2.2-3.9) gm/dL Albumin/Globulin Ratio (1.0-2.1) Arterial Blood Potassium 3.6 (3.6-5.2) mmol/L Vancomycin Trough 19.1 H (5.0-10.0) ug/mL 12/03/17 12/03/17 Range/Units 18:15 11:57 WBC (4.8-10.8) K/uL RBC (4.40-5.90) Mil/uL Hgb (12.0-18.0) g/dL Hct (35.0-51.0) % MCV (80.0-94.0) fL MCH (27.0-31.0) pg MCHC (33.0-37.0) g/dL RDW (11.5-14.5) % Plt Count (130-400) K/uL MPV (7.2-11.7) fL Neut % (Auto) (50.0-75.0) % Lymph % (Auto) (20.0-40.0) % Phillips % (Auto) (0.0-10.0) % Eos % (Auto) (0.0-4.0) % Baso % (Auto) (0.0-2.0) % Neut # (Auto) (1.8-7.0) K/uL Lymph # (Auto) (1.0-4.3) K/uL Phillips # (Auto) (0.0-0.8) K/uL Eos # (Auto) (0.0-0.7) K/uL Baso # (Auto) (0.0-0.2) K/uL Neutrophils % (Manual) (50-75) % Lymphocytes % (Manual) (20-40) % Monocytes % (Manual) (0-10) % Eosinophils % (Manual) (0-4) % Platelet Estimate (NORMAL) Polychromasia Poikilocytosis (manual Anisocytosis (manual) Puncture Site pCO2 (35-45) mm/Hg pO2 (80-100) mm/Hg HCO3 (21-28) mmol/L ABG pH (7.35-7.45) ABG Total CO2 (22-28) mmol/L ABG O2 Saturation (95-98) % ABG Base Excess (-2.0-3.0) mmol/L Oscar Test ABG Potassium (3.6-5.2) mmol/L A-a O2 Difference mm/Hg Respiratory Index Sodium (132-148) mmol/l Chloride (98-107) mmol/L Glucose (75-110) mg/dl Lactate (0.7-2.1) mmol/L Vent Mode Mechanical Rate FiO2 % Tidal Volume PEEP Crit Value Called To Crit Value Called By Crit Value Read Back Blood Gas Notified Time Potassium (3.6-5.2) mmol/L Carbon Dioxide (22-30) mmol/L Anion Gap (10-20) BUN (9-20) mg/dL Creatinine (0.8-1.5) mg/dL Est GFR ( Amer) Est GFR (Non-Af Amer) POC Glucose (mg/dL) 116 H 121 H (65-110) mg/dL Random Glucose (75-110) mg/dL Calcium (8.6-10.4) mg/dl Phosphorus (2.5-4.5) mg/dL Magnesium (1.6-2.3) mg/dL Total Bilirubin (0.2-1.3) mg/dL AST (17-59) U/L ALT (21-72) U/L Alkaline Phosphatase (38-126) U/L Total Protein (6.3-8.3) g/dL Albumin (3.5-5.0) g/dL Globulin (2.2-3.9) gm/dL Albumin/Globulin Ratio (1.0-2.1) Arterial Blood Potassium (3.6-5.2) mmol/L Vancomycin Trough (5.0-10.0) ug/mL Laboratory Results - last 24 hr 12/03/17 12/03/17 12/03/17 11:57 18:15 23:56 WBC RBC Hgb Hct MCV MCH MCHC RDW Plt Count MPV Neut % (Auto) Lymph % (Auto) Phillips % (Auto) Eos % (Auto) Baso % (Auto) Neut # (Auto) Lymph # (Auto) Phillips # (Auto) Eos # (Auto) Baso # (Auto) Neutrophils % (Manual) Lymphocytes % (Manual) Monocytes % (Manual) Eosinophils % (Manual) Platelet Estimate Polychromasia Poikilocytosis (manual Anisocytosis (manual) Puncture Site pCO2 pO2 HCO3 ABG pH ABG Total CO2 ABG O2 Saturation ABG Base Excess Oscar Test ABG Potassium A-a O2 Difference Respiratory Index Sodium Chloride Glucose Lactate Vent Mode Mechanical Rate FiO2 Tidal Volume PEEP Crit Value Called To Crit Value Called By Crit Value Read Back Blood Gas Notified Time Potassium Carbon Dioxide Anion Gap BUN Creatinine Est GFR ( Amer) Est GFR (Non-Af Amer) POC Glucose (mg/dL) 121 H 116 H 123 H Random Glucose Calcium Phosphorus Magnesium Total Bilirubin AST ALT Alkaline Phosphatase Total Protein Albumin Globulin Albumin/Globulin Ratio Arterial Blood Potassium Vancomycin Trough 12/04/17 12/04/17 12/04/17 05:02 06:38 06:38 WBC RBC Hgb Hct MCV MCH MCHC RDW Plt Count MPV Neut % (Auto) Lymph % (Auto) Phillips % (Auto) Eos % (Auto) Baso % (Auto) Neut # (Auto) Lymph # (Auto) Phillips # (Auto) Eos # (Auto) Baso # (Auto) Neutrophils % (Manual) Lymphocytes % (Manual) Monocytes % (Manual) Eosinophils % (Manual) Platelet Estimate Polychromasia Poikilocytosis (manual Anisocytosis (manual) Puncture Site Rra pCO2 44 pO2 58 L HCO3 29.3 H ABG pH 7.45 ABG Total CO2 32.0 H ABG O2 Saturation 92.9 L ABG Base Excess 5.8 H Oscar Test Po ABG Potassium 3.6 A-a O2 Difference 350.0 Respiratory Index 6.0 Sodium 160.0 H* 158 H Chloride 127.0 H 119 H Glucose 138 H Lactate 1.1 Vent Mode Prvc Mechanical Rate 16 FiO2 65.0 Tidal Volume 500 PEEP 5 Crit Value Called To Crit Value Called By Sheldon de leon,innersole fitter Crit Value Read Back Y Blood Gas Notified Time 900 Potassium 3.7 Carbon Dioxide 32 H Anion Gap 10 BUN 29 H Creatinine 1.2 Est GFR ( Amer) > 60 Est GFR (Non-Af Amer) 60 POC Glucose (mg/dL) Random Glucose 130 H Calcium 7.5 L Phosphorus 3.3 Magnesium 2.6 H Total Bilirubin 0.6 AST 24 ALT 27 Alkaline Phosphatase 73 Total Protein 5.9 L Albumin 2.5 L Globulin 3.4 Albumin/Globulin Ratio 0.7 L Arterial Blood Potassium 3.6 Vancomycin Trough 19.1 H 12/04/17 12/04/17 06:40 06:50 WBC 12.2 H RBC 3.79 L Hgb 11.1 L Hct 32.0 L MCV 84.4 MCH 29.3 MCHC 34.6 RDW 16.8 H Plt Count 214 MPV 8.8 Neut % (Auto) 83.6 H Lymph % (Auto) 7.2 L Phillips % (Auto) 6.9 Eos % (Auto) 1.9 Baso % (Auto) 0.4 Neut # (Auto) 10.2 H Lymph # (Auto) 0.9 L Phillips # (Auto) 0.8 Eos # (Auto) 0.2 Baso # (Auto) 0.0 Neutrophils % (Manual) 90 H Lymphocytes % (Manual) 4 L Monocytes % (Manual) 5 Eosinophils % (Manual) 1 Platelet Estimate Normal Polychromasia Slight Poikilocytosis (manual Slight Anisocytosis (manual) Slight Puncture Site pCO2 pO2 HCO3 ABG pH ABG Total CO2 ABG O2 Saturation ABG Base Excess Oscar Test ABG Potassium A-a O2 Difference Respiratory Index Sodium Chloride Glucose Lactate Vent Mode Mechanical Rate FiO2 Tidal Volume PEEP Crit Value Called To Crit Value Called By Crit Value Read Back Blood Gas Notified Time Potassium Carbon Dioxide Anion Gap BUN Creatinine Est GFR ( Amer) Est GFR (Non-Af Amer) POC Glucose (mg/dL) 131 H Random Glucose Calcium Phosphorus Magnesium Total Bilirubin AST ALT Alkaline Phosphatase Total Protein Albumin Globulin Albumin/Globulin Ratio Arterial Blood Potassium Vancomycin Trough Fingerstick Blood Sugar Results: 131 Critical Care Progress Note - Nutrition Nutrition: Nutrition Category Date Time Status Heart Healthy Diet [DIET] Diets 11/30/17 Lunch Active
--- NOTE | 2017-12-04 11:44 | RAD ---
HISTORY: Lung effusion COMPARISON: Comparison chest dated 12/03/2017 FINDINGS: In situ NGT, the tip of which has not been included on this film though distal aspect does lie well below EG junction. In situ ETT, tip which lies approximately 7.4 cm above eri. No change right-sided transvenous pacemaker. LUNGS: Diffuse bilateral pulmonary vascular congestive changes with bilateral effusions right larger than left. PLEURA: As above. No pneumothorax apparent. CARDIOVASCULAR: Heart size unchanged OSSEOUS STRUCTURES: No significant abnormalities. VISUALIZED UPPER ABDOMEN: Normal. OTHER FINDINGS: None. IMPRESSION: In situ NGT, the tip of which has not been included on this film though distal aspect does lie well below EG junction. In situ ETT, tip which lies approximately 7.4 cm above eri. No change right-sided transvenous pacemaker.
--- NOTE | 2017-12-04 12:53 | CP.PCM.PN ---
Subjective - Date & Time of Evaluation Date of Evaluation: 12/04/17 Time of Evaluation: 12:45 - Subjective Subjective: patient remains intubated. heart rate 65 now. informed by team that he had period of paced rhythm yesterday. Objective - Vital Signs/Intake and Output Vital Signs (last 24 hours): Temp Pulse Resp BP Pulse Ox 98.6 F 59 L 19 102/55 L 95 12/04/17 12:32 12/04/17 12:00 12/04/17 12:00 12/04/17 12:00 12/04/17 12:00 Intake and Output: 12/04/17 12/04/17 06:59 18:59 Intake Total 1520 750 Output Total 820 215 Balance 700 535 - Medications Medications: Current Medications Acetylcysteine (Acetylcysteine 20%) 6 ml PO Q12 [facility] Stop: 12/04/17 22:01 Last Admin: 12/04/17 09:20 Dose: 6 ml Albuterol/Ipratropium (Duoneb 3 Mg/0.5 Mg (3 Ml) Ud) 3 ml INH RQ6 [facility] Last Admin: 12/04/17 08:20 Dose: 3 ml Apixaban (Eliquis) 2.5 mg PO BID [facility] Last Admin: 12/04/17 09:20 Dose: 2.5 mg Ascorbic Acid (Vitamin C 500 Mg Tab) 500 mg PO DAILY [facility] Famotidine (Pepcid) 20 mg PO DAILY [facility] Last Admin: 12/04/17 09:21 Dose: 20 mg Vancomycin HCl 1 gm/ Sodium (Chloride) 200 mls @ 166.7 mls/hr IVPB Q24H [facility] Last Admin: 12/03/17 15:09 Dose: 166.7 mls/hr Sodium Chloride (Sodium Chloride 0.9%) 1,000 mls @ 80 mls/hr IV .[id number] [facility] Last Admin: 12/04/17 02:16 Dose: 80 mls/hr Piperacillin Sod/Tazobactam Sod (Zosyn 3.375 Gm Iv Premix) 3.375 gm in 50 mls @ 100 mls/hr IVPB Q6H [facility] Last Admin: 12/04/17 09:52 Dose: 100 mls/hr Insulin Aspart (Novolog) 0 unit SC Q6H [facility] PRN Reason: Protocol Last Admin: 12/04/17 12:32 Dose: Not Given Multivitamins/Vitamin C (Multi-Delyn Liquid) 5 ml PO DAILY [facility] Last Admin: 12/04/17 09:21 Dose: 5 ml Tamsulosin HCl (Flomax) 0.4 mg PO DAILY [facility] Last Admin: 12/04/17 09:20 Dose: 0.4 mg Zinc Sulfate (Zinc Sulfate 220 Mg Cap) 220 mg PO DAILY [facility] Last Admin: 12/04/17 09:21 Dose: 220 mg - Labs Labs: 12/04/17 06:40 12/04/17 06:38 PT 16.6 SECONDS (9.7-12.2) H 11/26/17 17:31 INR 1.5 11/26/17 17:31 APTT 31 SECONDS (21-34) 11/26/17 17:31 - Constitutional Appears: Non-toxic - Head Exam Head Exam: NORMAL INSPECTION - Eye Exam Eye Exam: Normal appearance - ENT Exam ENT Exam: Mucous Membranes Moist - Neck Exam Neck Exam: Full ROM - Respiratory Exam Respiratory Exam: Decreased Breath Sounds - Cardiovascular Exam Cardiovascular Exam: REGULAR RHYTHM - GI/Abdominal Exam GI & Abdominal Exam: Normal Bowel Sounds - Rectal Exam Rectal Exam: Deferred - Extremities Exam Extremities Exam: absent: Pedal Edema - Back Exam Back Exam: NORMAL INSPECTION - Skin Skin Exam: Normal Color Assessment and Plan (1) Cardiac arrest Assessment & Plan: pateint is currently sinus at 61 bpm. recommend decreasing rate to 45 BPM. this will allow us to assess whether patient requires pacing. wean to extubate. Status: Acute
[2017-12-04] MEDS: Vancomycin 1 GM in Sodium Chloride 0.9% 200 ML IVPB SCH (15:21)
[2017-12-05] MEDS: (Novolog) Insulin Aspart, Recombinant 100 u/ml 10 ml vial SC SCH ×4 (00:05→18:00)
[2017-12-05] MEDS: Albuterol-Ipratrop 3 mg / 0.5 (3 ml) UD INH SCH ×4 (01:44→19:37)
[2017-12-05] MEDS: Piperacill/Tazo 3.375gm in Dex 3.375 GM/50 ML BAG IVPB SCH (03:32)
[2017-12-05 06:04] LABS: ARTERIAL BLOOD GAS HCO3 29.7 mmol/L (21-28); ARTERIAL BLOOD GAS HEMOGLOBIN 10.6 g/dL (11.7-17.4); ARTERIAL BLOOD GAS O2 SAT 95.2 % (95-98); ARTERIAL BLOOD GAS PCO2 46 mm/Hg (35-45); ARTERIAL BLOOD GAS PH 7.44 (7.35-7.45); ARTERIAL BLOOD GAS PO2 66 mm/Hg (80-100); ARTERIAL BLOOD GAS TCO2 32.6 mmol/L (22-28)
[2017-12-05 06:41] LABS: BASO % 0.2 % (0.0-2.0); EOS # 0.2 K/uL (0.0-0.7); EOS % 1.9 % (0.0-4.0); HEMOGLOBIN 10.8 g/dL (12.0-18.0); LYMPH # 0.8 K/uL (1.0-4.3); LYMPH % 6.2 % (20.0-40.0); MEAN CELL VOLUME 83.6 fL (80.0-94.0); MEAN CORPUSCULAR HEMOGLOBIN 27.8 pg (27.0-31.0); MEAN CORPUSCULAR HGB CONC 33.3 g/dL (33.0-37.0); MEAN PLATELET VOLUME 8.7 fL (7.2-11.7); MONO # 0.8 K/uL (0.0-0.8); MONO % 6.1 % (0.0-10.0); NEUT % 85.6 % (50.0-75.0); NRBC % 0.2 % (0.0-2.0); PLATELET COUNT 210 K/uL (130-400); RBC 3.87 Mil/uL (4.40-5.90); RED CELL DISTRIBUTION WIDTH 16.7 % (11.5-14.5); WHITE BLOOD COUNT 12.8 K/uL (4.8-10.8)
[2017-12-05] MEDS: Sodium Chloride 0.9% 1,000 ML IV SCH (07:07)
[2017-12-05 07:09] LABS: ALB/GLOB RATIO 0.7 (1.0-2.1); ALBUMIN 2.5 g/dL (3.5-5.0); ALT/SGPT 31 U/L (21-72); AST/SGOT 26 U/L (17-59); BLOOD UREA NITROGEN 27 mg/dL (9-20); CALCIUM 7.3 mg/dl (8.6-10.4); GFR AFRICAN-AMERICAN > 60; GFR NON-AFRICAN AMERICAN 50; MAGNESIUM 2.6 mg/dL (1.6-2.3)
[2017-12-05] MEDS ORDERED: Furosemide 100 MG in Sodium Chloride 0.9% 90 ML IV SCH ×2 (08:45→19:58)
--- NOTE | 2017-12-05 08:45 | CP.CCUPN ---
CCU Subjective - Physician Review Events Since Last Encounter (Free Text): 12/05/17 08:39 72-year-old male with history of congestive heart failure, COPD, hypertension, CVA and BPH. Patient was hospitalized on May 26, with the SOB and hypotension. Patient developed a cardiac arrest, CODE BLUE was called on 12/01/2017. Patient is currently an intubated. Patient is awake this am, Patient had CT of the chest to rule out pulmonary embolism, which was negative. Currently patient is needing increasing FiO2 70%. Patient is awake and responding but hypoxia noted . Vital signs hypotension noted. Patient has a pacemaker externally, and the rate was placed at 45, patient basal rate is 77 sinus rhythm. Blood pressure is 107/56 Saturation is 90%. Chest bilateral good air entry. Irregular heart sound. Abdomen nontender. edema Patient's lab CBD Chest x-ray showing pulmonary edema,worsening edema WBC 12.2 renal function stable Blood gas analysis hypoxic with the elevated sodium level overall prognosis is not good. Assessment and recommendation: 72 male with history of CHF heart failure COPD hypertension and CVA BPH. Admitted with respiratory insufficiency on ventilator. Bilateral lung pneumonia, mostly in the right side, gram-positive culture from the sputum positive staph in the sputum On IV antibiotic, vancomycin level is being monitored, infectious disease follow -up on zosyn Continue the supportive care. Overall prognosis is guarded keep negative balance lasix drip CCU Objective - Vital Signs / Intake & Output Vital Signs (Last 4 hours): Vital Signs Pulse Resp BP Pulse Ox 12/05/17 07:03 75 24 91/50 L 88 L 12/05/17 07:00 97 H 30 H 86 L 12/05/17 06:00 72 14 94 L 12/05/17 05:25 75 24 90/54 L 92 L 12/05/17 05:00 75 23 91 L 12/05/17 04:46 79 33 H 83/48 L 86 L Intake and Output (Last 8hrs): Intake & Output 12/04/17 12/05/17 12/05/17 22:59 06:59 14:59 Intake Total 1140 1050 130 Output Total 510 560 60 Balance 630 490 70 Weight 181 lb 0.06 oz Intake: Intake, IV Amount 740 650 80 Right Midline distal port 740 650 80 Tube Feeding 400 400 50 Output: Urine 510 560 60 Urethral (Singh) 510 560 60 Other: # Bowel Movements 0 0 0 - Physical Exam Head: Positive for: Atraumatic, Normocephalic Pupils: Positive for: PERRL Mouth: Positive for: Moist Mucous Membranes Respiratory/Chest: Positive for: Other (intubated) Abdomen: Positive for: Normal Bowel Sounds. Negative for: Tenderness, Distention, Peritoneal Signs Psychiatric: Positive for: Alert, Oriented x 3 - Medications Active Medications: Active Medications Generic Name Dose Route Start Last Admin Trade Name Joyce PRN Reason Stop Dose Admin Albuterol/Ipratropium 3 ml 12/03/17 14:00 12/05/17 07:56 Duoneb 3 Mg/0.5 Mg (3 Ml) Ud INH 3 ml RQ6 ABHIJEET Administration Apixaban 2.5 mg 12/04/17 10:00 12/04/17 17:40 Eliquis PO 2.5 mg BID ABHIJEET Administration Ascorbic Acid 500 mg 12/05/17 10:00 Vitamin C 500 Mg Tab PO DAILY ABHIJEET Famotidine 20 mg 11/27/17 10:00 12/04/17 09:21 Pepcid PO 20 mg DAILY ABHIJEET Administration Vancomycin HCl 1 gm/ Sodium 200 mls @ 166.7 mls/hr 12/01/17 16:00 12/04/17 15 :21 Chloride IVPB 166.7 mls/hr Q24H ABHIJEET Administration Piperacillin Sod/Tazobactam Sod 3.375 gm in 50 mls @ 100 mls/hr 12/03/17 22: 00 12/05/17 03:32 Zosyn 3.375 Gm Iv Premix IVPB 100 mls/hr Q6H ABHIJEET Administration Insulin Aspart 0 unit 12/02/17 18:00 12/05/17 06:00 Novolog SC Not Given Q6H [facility] Protocol Multivitamins/Vitamin C 5 ml 12/02/17 10:00 12/04/17 09:21 Multi-Delyn Liquid PO 5 ml DAILY ABHIJEET Administration Tamsulosin HCl 0.4 mg 11/27/17 10:00 12/04/17 09:20 Flomax PO 0.4 mg DAILY ABHIJEET Administration Zinc Sulfate 220 mg 12/02/17 10:00 12/04/17 09:21 Zinc Sulfate 220 Mg Cap PO 220 mg DAILY ABHIJEET Administration - Patient Studies Lab Studies: Microbiology Studies 12/01/17 17:52 Gram Stain - Final Trachasp Sputum Culture - Preliminary Staphylococcus Aureus Lab Studies 12/05/17 12/05/17 12/05/17 Range/Units 06:36 06:36 06:06 WBC 12.8 H (4.8-10.8) K/uL RBC 3.87 L (4.40-5.90) Mil/uL Hgb 10.8 L (12.0-18.0) g/dL Hct 32.4 L (35.0-51.0) % MCV 83.6 (80.0-94.0) fL MCH 27.8 (27.0-31.0) pg MCHC 33.3 (33.0-37.0) g/dL RDW 16.7 H (11.5-14.5) % Plt Count 210 (130-400) K/uL MPV 8.7 (7.2-11.7) fL Neut % (Auto) 85.6 H (50.0-75.0) % Lymph % (Auto) 6.2 L (20.0-40.0) % [place] % (Auto) 6.1 (0.0-10.0) % Eos % (Auto) 1.9 (0.0-4.0) % Baso % (Auto) 0.2 (0.0-2.0) % Neut # (Auto) 11.0 H (1.8-7.0) K/uL Lymph # (Auto) 0.8 L (1.0-4.3) K/uL [place] # (Auto) 0.8 (0.0-0.8) K/uL Eos # (Auto) 0.2 (0.0-0.7) K/uL Baso # (Auto) 0.0 (0.0-0.2) K/uL Neutrophils % (Manual) (50-75) % Lymphocytes % (Manual) (20-40) % Monocytes % (Manual) (0-10) % Eosinophils % (Manual) (0-4) % Platelet Estimate (NORMAL) Polychromasia Poikilocytosis (manual Anisocytosis (manual) Puncture Site pCO2 (35-45) mm/Hg pO2 (80-100) mm/Hg HCO3 (21-28) mmol/L ABG pH (7.35-7.45) ABG Total CO2 (22-28) mmol/L ABG O2 Saturation (95-98) % ABG Base Excess (-2.0-3.0) mmol/L ABG Hemoglobin (11.7-17.4) g/dL ABG Carboxyhemoglobin (0.5-1.5) % POC ABG HHb (Measured) (0.0-5.0) % ABG Methemoglobin (0.0-3.0) % Oscar Test ABG Potassium (3.6-5.2) mmol/L A-a O2 Difference mm/Hg Respiratory Index Hgb O2 Saturation (95.0-98.0) % Sodium 161 H* (132-148) mmol/l Chloride 124 H (98-107) mmol/L Glucose (75-110) mg/dl Lactate (0.7-2.1) mmol/L Vent Mode Mechanical Rate FiO2 % Tidal Volume PEEP Crit Value Called To Crit Value Called By Crit Value Read Back Blood Gas Notified Time Potassium 3.7 (3.6-5.2) mmol/L Carbon Dioxide 30 (22-30) mmol/L Anion Gap 11 (10-20) BUN 27 H (9-20) mg/dL Creatinine 1.4 (0.8-1.5) mg/dL Est GFR ( Amer) > 60 Est GFR (Non-Af Amer) 50 POC Glucose (mg/dL) 121 H (65-110) mg/dL Random Glucose 125 H (75-110) mg/dL Calcium 7.3 L (8.6-10.4) mg/dl Phosphorus 3.8 (2.5-4.5) mg/dL Magnesium 2.6 H (1.6-2.3) mg/dL Total Bilirubin 0.5 (0.2-1.3) mg/dL AST 26 (17-59) U/L ALT 31 (21-72) U/L Alkaline Phosphatase 71 (38-126) U/L Total Protein 5.8 L (6.3-8.3) g/dL Albumin 2.5 L (3.5-5.0) g/dL Globulin 3.3 (2.2-3.9) gm/dL Albumin/Globulin Ratio 0.7 L (1.0-2.1) Arterial Blood Potassium (3.6-5.2) mmol/L 12/05/17 12/04/17 12/04/17 Range/Units 04:50 23:36 18:20 WBC (4.8-10.8) K/uL RBC (4.40-5.90) Mil/uL Hgb (12.0-18.0) g/dL Hct (35.0-51.0) % MCV (80.0-94.0) fL MCH (27.0-31.0) pg MCHC (33.0-37.0) g/dL RDW (11.5-14.5) % Plt Count (130-400) K/uL MPV (7.2-11.7) fL Neut % (Auto) (50.0-75.0) % Lymph % (Auto) (20.0-40.0) % [place] % (Auto) (0.0-10.0) % Eos % (Auto) (0.0-4.0) % Baso % (Auto) (0.0-2.0) % Neut # (Auto) (1.8-7.0) K/uL Lymph # (Auto) (1.0-4.3) K/uL [place] # (Auto) (0.0-0.8) K/uL Eos # (Auto) (0.0-0.7) K/uL Baso # (Auto) (0.0-0.2) K/uL Neutrophils % (Manual) (50-75) % Lymphocytes % (Manual) (20-40) % Monocytes % (Manual) (0-10) % Eosinophils % (Manual) (0-4) % Platelet Estimate (NORMAL) Polychromasia Poikilocytosis (manual Anisocytosis (manual) Puncture Site L bra pCO2 46 H (35-45) mm/Hg pO2 66 L (80-100) mm/Hg HCO3 29.7 H (21-28) mmol/L ABG pH 7.44 (7.35-7.45) ABG Total CO2 32.6 H (22-28) mmol/L ABG O2 Saturation 95.2 (95-98) % ABG Base Excess 6.2 H (-2.0-3.0) mmol/L ABG Hemoglobin 10.6 L (11.7-17.4) g/dL ABG Carboxyhemoglobin 1.7 H (0.5-1.5) % POC ABG HHb (Measured) 4.7 (0.0-5.0) % ABG Methemoglobin 1.1 (0.0-3.0) % Oscar Test Na ABG Potassium (3.6-5.2) mmol/L A-a O2 Difference 376.0 mm/Hg Respiratory Index 5.7 Hgb O2 Saturation 92.5 L (95.0-98.0) % Sodium (132-148) mmol/l Chloride (98-107) mmol/L Glucose (75-110) mg/dl Lactate (0.7-2.1) mmol/L Vent Mode Prvc Mechanical Rate 16 FiO2 70.0 % Tidal Volume 500 PEEP 5 Crit Value Called To Crit Value Called By Crit Value Read Back Blood Gas Notified Time Potassium (3.6-5.2) mmol/L Carbon Dioxide (22-30) mmol/L Anion Gap (10-20) BUN (9-20) mg/dL Creatinine (0.8-1.5) mg/dL Est GFR ( Amer) Est GFR (Non-Af Amer) POC Glucose (mg/dL) 115 H 131 H (65-110) mg/dL Random Glucose (75-110) mg/dL Calcium (8.6-10.4) mg/dl Phosphorus (2.5-4.5) mg/dL Magnesium (1.6-2.3) mg/dL Total Bilirubin (0.2-1.3) mg/dL AST (17-59) U/L ALT (21-72) U/L Alkaline Phosphatase (38-126) U/L Total Protein (6.3-8.3) g/dL Albumin (3.5-5.0) g/dL Globulin (2.2-3.9) gm/dL Albumin/Globulin Ratio (1.0-2.1) Arterial Blood Potassium (3.6-5.2) mmol/L 12/04/17 12/04/17 12/04/17 Range/Units 11:49 06:40 05:02 WBC (4.8-10.8) K/uL RBC (4.40-5.90) Mil/uL Hgb (12.0-18.0) g/dL Hct (35.0-51.0) % MCV (80.0-94.0) fL MCH (27.0-31.0) pg MCHC (33.0-37.0) g/dL RDW (11.5-14.5) % Plt Count (130-400) K/uL MPV (7.2-11.7) fL Neut % (Auto) (50.0-75.0) % Lymph % (Auto) (20.0-40.0) % [place] % (Auto) (0.0-10.0) % Eos % (Auto) (0.0-4.0) % Baso % (Auto) (0.0-2.0) % Neut # (Auto) (1.8-7.0) K/uL Lymph # (Auto) (1.0-4.3) K/uL [place] # (Auto) (0.0-0.8) K/uL Eos # (Auto) (0.0-0.7) K/uL Baso # (Auto) (0.0-0.2) K/uL Neutrophils % (Manual) 90 H (50-75) % Lymphocytes % (Manual) 4 L (20-40) % Monocytes % (Manual) 5 (0-10) % Eosinophils % (Manual) 1 (0-4) % Platelet Estimate Normal (NORMAL) Polychromasia Slight Poikilocytosis (manual Slight Anisocytosis (manual) Slight Puncture Site Rra pCO2 44 (35-45) mm/Hg pO2 58 L (80-100) mm/Hg HCO3 29.3 H (21-28) mmol/L ABG pH 7.45 (7.35-7.45) ABG Total CO2 32.0 H (22-28) mmol/L ABG O2 Saturation 92.9 L (95-98) % ABG Base Excess 5.8 H (-2.0-3.0) mmol/L ABG Hemoglobin (11.7-17.4) g/dL ABG Carboxyhemoglobin (0.5-1.5) % POC ABG HHb (Measured) (0.0-5.0) % ABG Methemoglobin (0.0-3.0) % Oscar Test Po ABG Potassium 3.6 (3.6-5.2) mmol/L A-a O2 Difference 350.0 mm/Hg Respiratory Index 6.0 Hgb O2 Saturation (95.0-98.0) % Sodium 160.0 H* (132-148) mmol/l Chloride 127.0 H (98-107) mmol/L Glucose 138 H (75-110) mg/dl Lactate 1.1 (0.7-2.1) mmol/L Vent Mode Prvc Mechanical Rate 16 FiO2 65.0 % Tidal Volume 500 PEEP 5 Crit Value Called To Crit Value Called By Sheldon de leon,collar baster jumpbasting Crit Value Read Back Y Blood Gas Notified Time 900 Potassium (3.6-5.2) mmol/L Carbon Dioxide (22-30) mmol/L Anion Gap (10-20) BUN (9-20) mg/dL Creatinine (0.8-1.5) mg/dL Est GFR ( Amer) Est GFR (Non-Af Amer) POC Glucose (mg/dL) 141 H (65-110) mg/dL Random Glucose (75-110) mg/dL Calcium (8.6-10.4) mg/dl Phosphorus (2.5-4.5) mg/dL Magnesium (1.6-2.3) mg/dL Total Bilirubin (0.2-1.3) mg/dL AST (17-59) U/L ALT (21-72) U/L Alkaline Phosphatase (38-126) U/L Total Protein (6.3-8.3) g/dL Albumin (3.5-5.0) g/dL Globulin (2.2-3.9) gm/dL Albumin/Globulin Ratio (1.0-2.1) Arterial Blood Potassium 3.6 (3.6-5.2) mmol/L Laboratory Results - last 24 hr 12/04/17 12/04/17 12/04/17 05:02 06:40 11:49 WBC RBC Hgb Hct MCV MCH MCHC RDW Plt Count MPV Neut % (Auto) Lymph % (Auto) [place] % (Auto) Eos % (Auto) Baso % (Auto) Neut # (Auto) Lymph # (Auto) [place] # (Auto) Eos # (Auto) Baso # (Auto) Neutrophils % (Manual) 90 H Lymphocytes % (Manual) 4 L Monocytes % (Manual) 5 Eosinophils % (Manual) 1 Platelet Estimate Normal Polychromasia Slight Poikilocytosis (manual Slight Anisocytosis (manual) Slight Puncture Site Rra pCO2 44 pO2 58 L HCO3 29.3 H ABG pH 7.45 ABG Total CO2 32.0 H ABG O2 Saturation 92.9 L ABG Base Excess 5.8 H ABG Hemoglobin ABG Carboxyhemoglobin POC ABG HHb (Measured) ABG Methemoglobin Oscar Test Po ABG Potassium 3.6 A-a O2 Difference 350.0 Respiratory Index 6.0 Hgb O2 Saturation Sodium 160.0 H* Chloride 127.0 H Glucose 138 H Lactate 1.1 Vent Mode Prvc Mechanical Rate 16 FiO2 65.0 Tidal Volume 500 PEEP 5 Crit Value Called To Crit Value Called By Sheldon de leon,jennifer Crit Value Read Back Y Blood Gas Notified Time 900 Potassium Carbon Dioxide Anion Gap BUN Creatinine Est GFR ( Amer) Est GFR (Non-Af Amer) POC Glucose (mg/dL) 141 H Random Glucose Calcium Phosphorus Magnesium Total Bilirubin AST ALT Alkaline Phosphatase Total Protein Albumin Globulin Albumin/Globulin Ratio Arterial Blood Potassium 3.6 12/04/17 12/04/17 12/05/17 18:20 23:36 04:50 WBC RBC Hgb Hct MCV MCH MCHC RDW Plt Count MPV Neut % (Auto) Lymph % (Auto) [place] % (Auto) Eos % (Auto) Baso % (Auto) Neut # (Auto) Lymph # (Auto) [place] # (Auto) Eos # (Auto) Baso # (Auto) Neutrophils % (Manual) Lymphocytes % (Manual) Monocytes % (Manual) Eosinophils % (Manual) Platelet Estimate Polychromasia Poikilocytosis (manual Anisocytosis (manual) Puncture Site L bra pCO2 46 H pO2 66 L HCO3 29.7 H ABG pH 7.44 ABG Total CO2 32.6 H ABG O2 Saturation 95.2 ABG Base Excess 6.2 H ABG Hemoglobin 10.6 L ABG Carboxyhemoglobin 1.7 H POC ABG HHb (Measured) 4.7 ABG Methemoglobin 1.1 Oscar Test Na ABG Potassium A-a O2 Difference 376.0 Respiratory Index 5.7 Hgb O2 Saturation 92.5 L Sodium Chloride Glucose Lactate Vent Mode Prvc Mechanical Rate 16 FiO2 70.0 Tidal Volume 500 PEEP 5 Crit Value Called To Crit Value Called By Crit Value Read Back Blood Gas Notified Time Potassium Carbon Dioxide Anion Gap BUN Creatinine Est GFR ( Amer) Est GFR (Non-Af Amer) POC Glucose (mg/dL) 131 H 115 H Random Glucose Calcium Phosphorus Magnesium Total Bilirubin AST ALT Alkaline Phosphatase Total Protein Albumin Globulin Albumin/Globulin Ratio Arterial Blood Potassium 12/05/17 12/05/17 12/05/17 06:06 06:36 06:36 WBC 12.8 H RBC 3.87 L Hgb 10.8 L Hct 32.4 L MCV 83.6 MCH 27.8 MCHC 33.3 RDW 16.7 H Plt Count 210 MPV 8.7 Neut % (Auto) 85.6 H Lymph % (Auto) 6.2 L [place] % (Auto) 6.1 Eos % (Auto) 1.9 Baso % (Auto) 0.2 Neut # (Auto) 11.0 H Lymph # (Auto) 0.8 L [place] # (Auto) 0.8 Eos # (Auto) 0.2 Baso # (Auto) 0.0 Neutrophils % (Manual) Lymphocytes % (Manual) Monocytes % (Manual) Eosinophils % (Manual) Platelet Estimate Polychromasia Poikilocytosis (manual Anisocytosis (manual) Puncture Site pCO2 pO2 HCO3 ABG pH ABG Total CO2 ABG O2 Saturation ABG Base Excess ABG Hemoglobin ABG Carboxyhemoglobin POC ABG HHb (Measured) ABG Methemoglobin Oscar Test ABG Potassium A-a O2 Difference Respiratory Index Hgb O2 Saturation Sodium 161 H* Chloride 124 H Glucose Lactate Vent Mode Mechanical Rate FiO2 Tidal Volume PEEP Crit Value Called To Crit Value Called By Crit Value Read Back Blood Gas Notified Time Potassium 3.7 Carbon Dioxide 30 Anion Gap 11 BUN 27 H Creatinine 1.4 Est GFR ( Amer) > 60 Est GFR (Non-Af Amer) 50 POC Glucose (mg/dL) 121 H Random Glucose 125 H Calcium 7.3 L Phosphorus 3.8 Magnesium 2.6 H Total Bilirubin 0.5 AST 26 ALT 31 Alkaline Phosphatase 71 Total Protein 5.8 L Albumin 2.5 L Globulin 3.3 Albumin/Globulin Ratio 0.7 L Arterial Blood Potassium Fingerstick Blood Sugar Results: 121 Critical Care Progress Note - Nutrition Nutrition: Nutrition Category Date Time Status Heart Healthy Diet [DIET] Diets 11/30/17 Lunch Active
[2017-12-05 08:46] LABS: BANDS 2 % (0-2); LYMPHOCYTE 4 % (20-40); MONOCYTE 5 % (0-10); NEUTROPHIL 89 % (50-75); TOTAL CELLS COUNTED 100
[2017-12-05 08:47] LABS: ANISOCYTOSIS SLIGHT; HYPOCHROMIC SLIGHT; LARGE PLATELETS PRESENT; PLATELET ESTIMATE NORMAL (NORMAL); TARGET CELLS SLIGHT
[2017-12-05 08:48] LABS: OVALOCYTES SLIGHT; TEARDROP CELLS SLIGHT
[2017-12-05] MEDS: Piperacillin/Tazobact 3.375 GM in Sodium Chloride 0.9% 100 ML IVPB SCH ×3 (10:01→21:46)
[2017-12-05] MEDS: Multiple Vitamins Oral Solution PO SCH (10:01)
--- NOTE | 2017-12-05 10:14 | RAD ---
HISTORY: follow up COMPARISON: No prior. FINDINGS: Situ ETT, tip of which lies approximately 8.3 cm above eri. . No change right IJ transvenous pacemaker . In situ NGT, tip of which has not been included on this film though distal aspect appears to lie well below EG junction. LUNGS: Diffuse bilateral infiltrates with possible bilateral effusions PLEURA: As above. No pneumothorax apparent. CARDIOVASCULAR: Normal. OSSEOUS STRUCTURES: No significant abnormalities. VISUALIZED UPPER ABDOMEN: Normal. OTHER FINDINGS: None. IMPRESSION: ETT NGT and right-sided transvenous pacemaker unchanged. Diffuse bilateral infiltrates with probable bilateral effusions.
--- NOTE | 2017-12-05 15:05 | CP.PCM.PN ---
Subjective - Date & Time of Evaluation Date of Evaluation: 12/05/17 Time of Evaluation: 08:00 - Subjective Subjective: s/p CTA- no PE extensive infiltrates IV rx in progress cultures pending on approproate antibiotics since admission Objective - Vital Signs/Intake and Output Vital Signs (last 24 hours): Temp Pulse Resp BP Pulse Ox 99.2 F 75 24 100/43 L 88 L 12/05/17 04:00 12/05/17 07:03 12/05/17 07:03 12/05/17 10:02 12/05/17 07:03 Intake and Output: 12/05/17 12/05/17 06:59 18:59 Intake Total 1580 130 Output Total 795 60 Balance 785 70 - Medications Medications: Current Medications Albuterol/Ipratropium (Duoneb 3 Mg/0.5 Mg (3 Ml) Ud) 3 ml INH RQ6 [facility] Last Admin: 12/05/17 13:31 Dose: 3 ml Apixaban (Eliquis) 2.5 mg PO BID [facility] Last Admin: 12/05/17 10:01 Dose: 2.5 mg Ascorbic Acid (Vitamin C 500 Mg Tab) 500 mg PO DAILY [facility] Last Admin: 12/05/17 10:01 Dose: 500 mg Famotidine (Pepcid) 20 mg PO DAILY [facility] Last Admin: 12/05/17 10:01 Dose: 20 mg Vancomycin HCl 1 gm/ Sodium (Chloride) 200 mls @ 166.7 mls/hr IVPB Q24H [facility] Last Admin: 12/04/17 15:21 Dose: 166.7 mls/hr Piperacillin Sod/Tazobactam (Sod 3.375 gm/ Sodium Chloride) 100 mls @ 100 mls/ hr IVPB Q6H [facility] Last Admin: 12/05/17 10:01 Dose: 100 mls/hr Furosemide 100 mg/ Sodium (Chloride) 100 mls @ 5 mls/hr IV .Q20H [facility] PRN Reason: 5 MG/HR Last Admin: 12/05/17 10:02 Dose: 5 mls/hr Dextrose (Dextrose 5% In Water 1000 Ml) 500 mls @ 40 mls/hr IV .[id number] [facility] Stop: 12/05/17 21:14 Last Admin: 12/05/17 10:02 Dose: 40 mls/hr Insulin Aspart (Novolog) 0 unit SC Q6H [facility] PRN Reason: Protocol Last Admin: 12/05/17 12:00 Dose: Not Given Multivitamins/Vitamin C (Multi-Delyn Liquid) 5 ml PO DAILY [facility] Last Admin: 12/05/17 10:01 Dose: 5 ml Tamsulosin HCl (Flomax) 0.4 mg PO DAILY [facility] Last Admin: 12/05/17 10:01 Dose: 0.4 mg Zinc Sulfate (Zinc Sulfate 220 Mg Cap) 220 mg PO DAILY [facility] Last Admin: 12/05/17 10:00 Dose: 220 mg - Labs Labs: 12/05/17 06:36 12/05/17 06:36 PT 16.6 SECONDS (9.7-12.2) H 11/26/17 17:31 INR 1.5 11/26/17 17:31 APTT 31 SECONDS (21-34) 11/26/17 17:31 - Constitutional Appears: Non-toxic, Chronically Ill - Head Exam Head Exam: NORMOCEPHALIC - Eye Exam Eye Exam: PERRL - ENT Exam ENT Exam: Mucous Membranes Dry - Neck Exam Neck Exam: absent: Lymphadenopathy, Thyromegaly - Respiratory Exam Respiratory Exam: Decreased Breath Sounds - Cardiovascular Exam Cardiovascular Exam: REGULAR RHYTHM - GI/Abdominal Exam GI & Abdominal Exam: Distended, Soft - Rectal Exam Rectal Exam: Deferred - Exam Exam: NORMAL INSPECTION - Extremities Exam Extremities Exam: absent: Pedal Edema - Back Exam Back Exam: absent: CVA tenderness (L), CVA tenderness (R) - Neurological Exam Neurological Exam: CN II-XII Intact, Oriented x3 - Psychiatric Exam Psychiatric exam: Depressed Assessment and Plan (1) Acute urinary retention Status: Acute (2) Fever Status: Acute (3) Sepsis associated hypotension Status: Acute (4) Pneumonia Status: Acute (5) Respiratory failure Status: Acute
[2017-12-05] MEDS ORDERED: DOPamine 400mg/250ml D5W 400 MG/250 ML BAG IV PRN (15:31)
[2017-12-05] MEDS: Vancomycin 1 GM in Sodium Chloride 0.9% 200 ML IVPB SCH (16:17)
--- NOTE | 2017-12-05 17:24 | CP.PCM.PN ---
Subjective - Date & Time of Evaluation Date of Evaluation: 12/05/17 Time of Evaluation: 17:22 - Subjective Subjective: Surgery Pt s&e. Intubated. NAEON. Objective - Vital Signs/Intake and Output Vital Signs (last 24 hours): Temp Pulse Resp BP Pulse Ox 100 F H 64 20 85/56 L 976 H 12/05/17 12:00 12/05/17 16:02 12/05/17 16:02 12/05/17 16:02 12/05/17 16:02 Intake and Output: 12/05/17 12/05/17 06:59 18:59 Intake Total 1580 130 Output Total 795 60 Balance 785 70 - Medications Medications: Current Medications Albuterol/Ipratropium (Duoneb 3 Mg/0.5 Mg (3 Ml) Ud) 3 ml INH RQ6 [facility] Last Admin: 12/05/17 13:31 Dose: 3 ml Apixaban (Eliquis) 2.5 mg PO BID [facility] Last Admin: 12/05/17 10:01 Dose: 2.5 mg Ascorbic Acid (Vitamin C 500 Mg Tab) 500 mg PO DAILY [facility] Last Admin: 12/05/17 10:01 Dose: 500 mg Famotidine (Pepcid) 20 mg PO DAILY [facility] Last Admin: 12/05/17 10:01 Dose: 20 mg Vancomycin HCl 1 gm/ Sodium (Chloride) 200 mls @ 166.7 mls/hr IVPB Q24H [facility] Last Admin: 12/05/17 16:17 Dose: 166.7 mls/hr Piperacillin Sod/Tazobactam (Sod 3.375 gm/ Sodium Chloride) 100 mls @ 100 mls/ hr IVPB Q6H [facility] Last Admin: 12/05/17 16:33 Dose: 100 mls/hr Furosemide 100 mg/ Sodium (Chloride) 100 mls @ 5 mls/hr IV .Q20H [facility] PRN Reason: 5 MG/HR Last Admin: 12/05/17 10:02 Dose: 5 mls/hr Dextrose (Dextrose 5% In Water 1000 Ml) 500 mls @ 40 mls/hr IV .[id number] [facility] Stop: 12/05/17 21:14 Last Admin: 12/05/17 10:02 Dose: 40 mls/hr Dopamine HCl/Dextrose (Dopamine 400mg/250ml D5w) 400 mg in 250 mls @ 15.394 mls /hr IV .[id number] PRN; 5 MCG/KG/MIN PRN Reason: DO NOT TITRATE Last Admin: 12/05/17 16:02 Dose: 15.394 mls/hr Insulin Aspart (Novolog) 0 unit SC Q6H [facility] PRN Reason: Protocol Last Admin: 12/05/17 12:00 Dose: Not Given Multivitamins/Vitamin C (Multi-Delyn Liquid) 5 ml PO DAILY [facility] Last Admin: 12/05/17 10:01 Dose: 5 ml Tamsulosin HCl (Flomax) 0.4 mg PO DAILY [facility] Last Admin: 12/05/17 10:01 Dose: 0.4 mg Zinc Sulfate (Zinc Sulfate 220 Mg Cap) 220 mg PO DAILY [facility] Last Admin: 12/05/17 10:00 Dose: 220 mg - Labs Labs: 12/05/17 06:36 12/05/17 06:36 PT 16.6 SECONDS (9.7-12.2) H 11/26/17 17:31 INR 1.5 11/26/17 17:31 APTT 31 SECONDS (21-34) 11/26/17 17:31 - Constitutional Appears: No Acute Distress - Head Exam Head Exam: ATRAUMATIC, NORMAL INSPECTION, NORMOCEPHALIC - ENT Exam Additional comments: [facility] cath - Neck Exam Neck Exam: Normal Inspection - Respiratory Exam Respiratory Exam: Respiratory Distress Additional comments: Intubated - GI/Abdominal Exam GI & Abdominal Exam: Soft, Normal Bowel Sounds. absent: Tenderness - Skin Skin Exam: Dry, Intact, Normal Color, Warm Assessment and Plan - Assessment and Plan (Free Text) Assessment: 72 M presents s/p code blue intubated for respiratory failure with small B/L pleural effusions- stable. Plan: CT chest- No evidence of pulmonary embolism. Extensive bilateral lower lobe segmental/subsegmental atelectasis. Small right and trace left pleural effusion. Centrilobular pulmonary emphysema. ET tube. NG tube. Possible mural thickening of the gallbladder. Consider correlation with abdominal ultrasound examination. s/p transvenous pacemaker placement cont IV Abx No CT surgical intervention at this time Cont DVT/GI ppx Cont mgmt as per primary and ICU teams Will SUNDAR Dawn
[2017-12-05 21:52] LABS: CALCIUM 7.5 mg/dl (8.6-10.4); MAGNESIUM 2.5 mg/dL (1.6-2.3)
[2017-12-06] MEDS: Albuterol-Ipratrop 3 mg / 0.5 (3 ml) UD INH SCH ×4 (01:15→19:53)
[2017-12-06] MEDS: DOPamine 400mg/250ml D5W 400 MG/250 ML BAG IV PRN ×3 (01:46→19:30)
[2017-12-06] MEDS: (Novolog) Insulin Aspart, Recombinant 100 u/ml 10 ml vial SC SCH ×5 (01:50→23:44)
[2017-12-06] MEDS: Piperacillin/Tazobact 3.375 GM in Sodium Chloride 0.9% 100 ML IVPB SCH ×4 (06:05→21:18)
[2017-12-06 06:24] LABS: BASO # 0.1 K/uL (0.0-0.2); BASO % 0.5 % (0.0-2.0); EOS # 0.2 K/uL (0.0-0.7); EOS % 1.5 % (0.0-4.0); HEMOGLOBIN 11.3 g/dL (12.0-18.0); LYMPH % 7.2 % (20.0-40.0); MEAN CELL VOLUME 83.9 fL (80.0-94.0); MEAN CORPUSCULAR HEMOGLOBIN 28.1 pg (27.0-31.0); MEAN CORPUSCULAR HGB CONC 33.5 g/dL (33.0-37.0); MEAN PLATELET VOLUME 9.3 fL (7.2-11.7); MONO # 1.1 K/uL (0.0-0.8); MONO % 8.1 % (0.0-10.0); NEUT # 11.5 K/uL (1.8-7.0); NEUT % 82.7 % (50.0-75.0); PLATELET COUNT 219 K/uL (130-400); RBC 4.04 Mil/uL (4.40-5.90); RED CELL DISTRIBUTION WIDTH 17.5 % (11.5-14.5); WHITE BLOOD COUNT 13.9 K/uL (4.8-10.8)
[2017-12-06 06:40] LABS: ALB/GLOB RATIO 0.8 (1.0-2.1); ALBUMIN 2.7 g/dL (3.5-5.0); CALCIUM 7.6 mg/dl (8.6-10.4); MAGNESIUM 2.6 mg/dL (1.6-2.3)
--- NOTE | 2017-12-06 08:01 | CP.PCM.PN ---
Subjective - Date & Time of Evaluation Date of Evaluation: 12/06/17 Time of Evaluation: 07:30 - Subjective Subjective: Surgery- Dr. Dawn Patient seen and examined at bedside this AM. nursing notes reviewed. intubated , PRVC FIO2 100 PEEP 5 RR 16 TV 500. On tube feeds. Opens eyes, follows simple commands. Objective - Vital Signs/Intake and Output Vital Signs (last 24 hours): Temp Pulse Resp BP Pulse Ox 98.6 F 79 16 93/42 L 97 12/06/17 04:00 12/06/17 06:33 12/06/17 06:33 12/06/17 06:33 12/06/17 06:33 Intake and Output: 12/06/17 12/06/17 06:59 18:59 Intake Total 1367.0 Output Total 1310 Balance 57.0 - Medications Medications: Current Medications Albuterol/Ipratropium (Duoneb 3 Mg/0.5 Mg (3 Ml) Ud) [address] [facility] Last Admin: 12/06/17 08:00 Dose: 3 ml Apixaban (Eliquis) 2.[address] [facility] Last Admin: 12/05/17 21:31 Dose: 2.5 mg Ascorbic Acid (Vitamin C 500 Mg Tab) [address] [facility] Last Admin: 12/05/17 10:01 Dose: 500 mg Famotidine (Pepcid) [address] [facility] Last Admin: 12/05/17 10:01 Dose: 20 mg Vancomycin HCl 1 gm/ Sodium (Chloride) 200 mls @ 166.7 mls/hr IVPB Q24H [facility] Last Admin: 12/05/17 16:17 Dose: 166.7 mls/hr Piperacillin Sod/Tazobactam (Sod 3.375 gm/ Sodium Chloride) 100 mls @ 100 mls/ hr IVPB Q6H [facility] Last Admin: 12/06/17 06:05 Dose: 100 mls/hr Dopamine HCl/Dextrose (Dopamine 400mg/250ml D5w) 400 mg in 250 mls @ 30.788 mls /hr IV .Q8H8M PRN; 10 MCG/KG/MIN PRN Reason: DO NOT TITRATE Last Admin: 12/06/17 01:46 Dose: 30.788 mls/hr Potassium Chloride (Potassium Chloride 10 Meq/100 Ml) 10 meq in 100 mls @ 100 mls/hr IVPB Q1H [facility] Stop: 12/06/17 09:14 Last Admin: 12/06/17 07:45 Dose: 100 mls/hr Insulin Aspart (Novolog) 0 unit SC Q6H [facility] PRN Reason: Protocol Last Admin: 12/06/17 01:50 Dose: 2 unit Metolazone (Zaroxolyn) [address] [facility] Multivitamins/Vitamin C (Multi-Delyn Liquid) 5 ml PO DAILY [facility] Last Admin: 12/05/17 10:01 Dose: 5 ml Tamsulosin HCl (Flomax) 0.[address] [facility] Last Admin: 12/05/17 10:01 Dose: 0.4 mg Zinc Sulfate (Zinc Sulfate 220 Mg Cap) [address] [facility] Last Admin: 12/05/17 10:00 Dose: 220 mg - Labs Labs: 12/06/17 06:19 12/06/17 06:19 PT 16.6 SECONDS (9.7-12.2) H 11/26/17 17:31 INR 1.5 11/26/17 17:31 APTT 31 SECONDS (21-34) 11/26/17 17:31 - Constitutional Appears: Non-toxic, No Acute Distress - ENT Exam ENT Exam: Mucous Membranes Moist - Respiratory Exam Respiratory Exam: NORMAL BREATHING PATTERN. absent: Accessory Muscle Use, Respiratory Distress Additional comments: intubated on PRVC 100 5 16 500 - Cardiovascular Exam Cardiovascular Exam: +S1, +S2. absent: Bradycardia, Tachycardia - Neurological Exam Neurological Exam: Alert, Awake - Skin Skin Exam: Intact, Warm Assessment and Plan - Assessment and Plan (Free Text) Assessment: 72M hx of CHF, COPD, CVA presents s/p code blue intubated for respiratory failure with small B/L pleural effusions- stable. Intubated on PRVC 100 5 16 500. Negative for PE. Pacemaker external- HR mid 60-70s sinus. Plan: - continue tube feeds - IVF Abx - titrate vent settings prn - GI/DVT ppx - medical management per primary and ICU teams - No CT surgical intervention at this time - please reconsult as needed- thank you for allowing us to participate in the care of this patient Will DW Dr. López Garcia PGY1
--- NOTE | 2017-12-06 08:44 | RAD ---
HISTORY: Intubation COMPARISON: 12/05/2017 FINDINGS: LUNGS: Right basilar opacity. Decreasing opacity/congestive change left lung. Likely resolving pulmonary edema. PLEURA: Bilateral small pleural effusion. Two chest tubes at right lung base. No pneumothorax. CARDIOVASCULAR: Normal heart size. Decreased congestive change. ET tube unchanged. Nasogastric tube extends to left upper quadrant of abdomen. Right IJ central venous catheter extends to likely right ventricle. OSSEOUS STRUCTURES: No significant abnormalities. VISUALIZED UPPER ABDOMEN: Normal. OTHER FINDINGS: None. IMPRESSION: Decrease left-sided opacity and congestive change. Bilateral small pleural effusion. Two right chest tubes. Lines and tubes unchanged.
[2017-12-06 08:48] LABS: LYMPHOCYTE 6 % (20-40); MONOCYTE 10 % (0-10); MYELOCYTE 1 % (0-0); NEUTROPHIL 83 % (50-75); PLATELET ESTIMATE NORMAL (NORMAL); TOTAL CELLS COUNTED 100
[2017-12-06 08:49] LABS: HYPOCHROMIC SLIGHT
[2017-12-06] MEDS: Acetaminophen 650mg/20.3ml solution UD PO PRN ×2 (09:44→23:30)
[2017-12-06] MEDS: Multiple Vitamins Oral Solution PO SCH (09:45)
--- NOTE | 2017-12-06 10:32 | CP.CCUPN ---
CCU Subjective - Physician Review Events Since Last Encounter (Free Text): 12/06/17 10:31 72-year-old male with history of congestive heart failure, COPD, hypertension, CVA and BPH. Patient was hospitalized on May 26, with the SOB and hypotension. Patient developed a cardiac arrest, CODE BLUE was called on 12/01/2017. Patient is currently an intubated. Patient is awake this am, Patient had CT of the chest to rule out pulmonary embolism, which was negative. Currently patient is needing increasing FiO2 100%. Patient is awake and responding but hypoxia noted . Vital signs hypotension noted. Patient has a pacemaker externally, and the rate was placed at 45, patient basal rate is 77 sinus rhythm. Blood pressure is 107/56 Saturation is 90%. Chest bilateral good air entry. Irregular heart sound. Abdomen nontender. edema patient was not able totolerate the Lasix tip Patient's lab CBD Chest x-ray showing pulmonary edema,worsening edema WBC 12.2 renal function stable Blood gas analysis hypoxic with the elevated sodium level overall prognosis is not good. Assessment and recommendation: 72 male with history of CHF heart failure COPD hypertension and CVA BPH. Admitted with respiratory insufficiency on ventilator. Bilateral lung pneumonia, mostly in the right side, gram-positive culture from the sputum positive staph in the sputum On IV antibiotic, vancomycin level is being monitored, infectious disease follow -up on zosyn Continue the supportive care. Overall prognosis is guarded keep negative balance CCU Objective - Vital Signs / Intake & Output Vital Signs (Last 4 hours): Vital Signs Pulse Resp BP Pulse Ox 12/06/17 06:33 79 16 93/42 L 97 Intake and Output (Last 8hrs): Intake & Output 12/05/17 12/06/17 12/06/17 22:59 06:59 14:59 Intake Total 1233.9 774.0 Output Total 1700 710 Balance -466.1 64.0 Weight 205 lb 0.478 oz Intake: Intake, IV Amount 883.9 374.0 Right Distal Port 122.9 154.0 Right Midline 381.0 Right Midline distal port 380 220 Tube Feeding 350 400 Output: Urine 1700 710 Urethral (Singh) 1700 710 - Physical Exam Head: Positive for: Atraumatic, Normocephalic Pupils: Positive for: PERRL Mouth: Positive for: Moist Mucous Membranes Respiratory/Chest: Positive for: Other (intubated) Abdomen: Positive for: Normal Bowel Sounds. Negative for: Tenderness, Distention, Peritoneal Signs Psychiatric: Positive for: Alert, Oriented x 3 - Medications Active Medications: Active Medications Generic Name Dose Route Start Last Admin Trade Name Freq PRN Reason Stop Dose Admin Acetaminophen 650 mg 12/06/17 09:30 12/06/17 09:44 Tylenol 650mg/20.3ml Solution Ud PO 650 mg Q6 PRN Administration Temperature Albuterol/Ipratropium 3 ml 12/03/17 14:00 12/06/17 08:00 Duoneb 3 Mg/0.5 Mg (3 Ml) Ud INH 3 ml RQ6 [facility] Administration Apixaban 2.5 mg 12/04/17 10:00 12/06/17 09:45 Eliquis PO 2.5 mg BID [facility] Administration Ascorbic Acid 500 mg 12/05/17 10:00 12/06/17 09:44 Vitamin C 500 Mg Tab PO 500 mg DAILY [facility] Administration Famotidine 20 mg 11/27/17 10:00 12/06/17 09:44 Pepcid PO 20 mg DAILY [facility] Administration Vancomycin HCl 1 gm/ Sodium 200 mls @ 166.7 mls/hr 12/01/17 16:00 12/05/17 16 :17 Chloride IVPB 166.7 mls/hr Q24H [facility] Administration Piperacillin Sod/Tazobactam 100 mls @ 100 mls/hr 12/05/17 10:00 12/06/17 09: 45 Sod 3.375 gm/ Sodium Chloride IVPB 100 mls/hr Q6H [facility] Administration Dopamine HCl/Dextrose 400 mg in 250 mls @ 30.788 mls/hr 12/05/17 20:01 01:46 Dopamine 400mg/250ml D5w IV 30.788 mls/hr .Q8H8M PRN Administration DO NOT TITRATE 10 MCG/KG/MIN Insulin Aspart 0 unit 12/02/17 18:00 12/06/17 06:01 Novolog SC Not Given Q6H [facility] Protocol Metolazone 5 mg 12/06/17 19:48 Zaroxolyn PO DAILY [facility] Multivitamins/Vitamin C 5 ml 12/02/17 10:00 12/06/17 09:45 Multi-Delyn Liquid PO 5 ml DAILY [facility] Administration Tamsulosin HCl 0.4 mg 11/27/17 10:00 12/06/17 09:45 Flomax PO 0.4 mg DAILY [facility] Administration Zinc Sulfate 220 mg 12/02/17 10:00 12/06/17 09:45 Zinc Sulfate 220 Mg Cap PO 220 mg DAILY [facility] Administration - Patient Studies Lab Studies: Lab Studies 12/06/17 12/06/17 12/06/17 Range/Units 06:19 06:19 06:19 WBC 13.9 H (4.8-10.8) K/uL RBC 4.04 L (4.40-5.90) Mil/uL Hgb 11.3 L (12.0-18.0) g/dL Hct 33.9 L (35.0-51.0) % MCV 83.9 (80.0-94.0) fL MCH 28.1 (27.0-31.0) pg MCHC 33.5 (33.0-37.0) g/dL RDW 17.5 H (11.5-14.5) % Plt Count 219 (130-400) K/uL MPV 9.3 (7.2-11.7) fL Neut % (Auto) 82.7 H (50.0-75.0) % Lymph % (Auto) 7.2 L (20.0-40.0) % [place] % (Auto) 8.1 (0.0-10.0) % Eos % (Auto) 1.5 (0.0-4.0) % Baso % (Auto) 0.5 (0.0-2.0) % Neut # (Auto) 11.5 H (1.8-7.0) K/uL Lymph # (Auto) 1.0 (1.0-4.3) K/uL [place] # (Auto) 1.1 H (0.0-0.8) K/uL Eos # (Auto) 0.2 (0.0-0.7) K/uL Baso # (Auto) 0.1 (0.0-0.2) K/uL Neutrophils % (Manual) 83 H (50-75) % Lymphocytes % (Manual) 6 L (20-40) % Monocytes % (Manual) 10 (0-10) % Myelocytes % 1 H (0-0) % Platelet Estimate Normal (NORMAL) Hypochromasia (manual) Slight Sodium 161 H* (132-148) mmol/L Potassium 3.5 L (3.6-5.2) mmol/L Chloride 123 H (98-107) mmol/L Carbon Dioxide 30 (22-30) mmol/L Anion Gap 12 (10-20) BUN 27 H (9-20) mg/dL Creatinine 1.6 H (0.8-1.5) mg/dL Est GFR ( Amer) 52 Est GFR (Non-Af Amer) 43 POC Glucose (mg/dL) (65-110) mg/dL Random Glucose 135 H (75-110) mg/dL Calcium 7.6 L (8.6-10.4) mg/dl Phosphorus 3.4 (2.5-4.5) mg/dL Magnesium 2.6 H (1.6-2.3) mg/dL Total Bilirubin 0.5 (0.2-1.3) mg/dL AST 50 (17-59) U/L ALT 51 (21-72) U/L Alkaline Phosphatase 63 (38-126) U/L Total Protein 6.2 L (6.3-8.3) g/dL Albumin 2.7 L (3.5-5.0) g/dL Globulin 3.5 (2.2-3.9) gm/dL Albumin/Globulin Ratio 0.8 L (1.0-2.1) Vancomycin Trough 23.5 H (5.0-10.0) ug/mL 12/06/17 12/05/17 12/05/17 Range/Units 04:45 23:38 21:27 WBC (4.8-10.8) K/uL RBC (4.40-5.90) Mil/uL Hgb (12.0-18.0) g/dL Hct (35.0-51.0) % MCV (80.0-94.0) fL MCH (27.0-31.0) pg MCHC (33.0-37.0) g/dL RDW (11.5-14.5) % Plt Count (130-400) K/uL MPV (7.2-11.7) fL Neut % (Auto) (50.0-75.0) % Lymph % (Auto) (20.0-40.0) % [place] % (Auto) (0.0-10.0) % Eos % (Auto) (0.0-4.0) % Baso % (Auto) (0.0-2.0) % Neut # (Auto) (1.8-7.0) K/uL Lymph # (Auto) (1.0-4.3) K/uL [place] # (Auto) (0.0-0.8) K/uL Eos # (Auto) (0.0-0.7) K/uL Baso # (Auto) (0.0-0.2) K/uL Neutrophils % (Manual) (50-75) % Lymphocytes % (Manual) (20-40) % Monocytes % (Manual) (0-10) % Myelocytes % (0-0) % Platelet Estimate (NORMAL) Hypochromasia (manual) Sodium 161 H* (132-148) mmol/L Potassium 3.5 L (3.6-5.2) mmol/L Chloride 122 H (98-107) mmol/L Carbon Dioxide 33 H (22-30) mmol/L Anion Gap 9 L (10-20) BUN 25 H (9-20) mg/dL Creatinine 1.5 (0.8-1.5) mg/dL Est GFR ( Amer) 56 Est GFR (Non-Af Amer) 46 POC Glucose (mg/dL) 149 H 182 H (65-110) mg/dL Random Glucose 130 H (75-110) mg/dL Calcium 7.5 L (8.6-10.4) mg/dl Phosphorus (2.5-4.5) mg/dL Magnesium 2.5 H (1.6-2.3) mg/dL Total Bilirubin (0.2-1.3) mg/dL AST (17-59) U/L ALT (21-72) U/L Alkaline Phosphatase (38-126) U/L Total Protein (6.3-8.3) g/dL Albumin (3.5-5.0) g/dL Globulin (2.2-3.9) gm/dL Albumin/Globulin Ratio (1.0-2.1) Vancomycin Trough (5.0-10.0) ug/mL 12/05/17 12/05/17 Range/Units 18:00 11:35 WBC (4.8-10.8) K/uL RBC (4.40-5.90) Mil/uL Hgb (12.0-18.0) g/dL Hct (35.0-51.0) % MCV (80.0-94.0) fL MCH (27.0-31.0) pg MCHC (33.0-37.0) g/dL RDW (11.5-14.5) % Plt Count (130-400) K/uL MPV (7.2-11.7) fL Neut % (Auto) (50.0-75.0) % Lymph % (Auto) (20.0-40.0) % [place] % (Auto) (0.0-10.0) % Eos % (Auto) (0.0-4.0) % Baso % (Auto) (0.0-2.0) % Neut # (Auto) (1.8-7.0) K/uL Lymph # (Auto) (1.0-4.3) K/uL [place] # (Auto) (0.0-0.8) K/uL Eos # (Auto) (0.0-0.7) K/uL Baso # (Auto) (0.0-0.2) K/uL Neutrophils % (Manual) (50-75) % Lymphocytes % (Manual) (20-40) % Monocytes % (Manual) (0-10) % Myelocytes % (0-0) % Platelet Estimate (NORMAL) Hypochromasia (manual) Sodium (132-148) mmol/L Potassium (3.6-5.2) mmol/L Chloride (98-107) mmol/L Carbon Dioxide (22-30) mmol/L Anion Gap (10-20) BUN (9-20) mg/dL Creatinine (0.8-1.5) mg/dL Est GFR ( Amer) Est GFR (Non-Af Amer) POC Glucose (mg/dL) 114 H 139 H (65-110) mg/dL Random Glucose (75-110) mg/dL Calcium (8.6-10.4) mg/dl Phosphorus (2.5-4.5) mg/dL Magnesium (1.6-2.3) mg/dL Total Bilirubin (0.2-1.3) mg/dL AST (17-59) U/L ALT (21-72) U/L Alkaline Phosphatase (38-126) U/L Total Protein (6.3-8.3) g/dL Albumin (3.5-5.0) g/dL Globulin (2.2-3.9) gm/dL Albumin/Globulin Ratio (1.0-2.1) Vancomycin Trough (5.0-10.0) ug/mL Laboratory Results - last 24 hr 12/05/17 12/05/17 12/05/17 11:35 18:00 21:27 WBC RBC Hgb Hct MCV MCH MCHC RDW Plt Count MPV Neut % (Auto) Lymph % (Auto) [place] % (Auto) Eos % (Auto) Baso % (Auto) Neut # (Auto) Lymph # (Auto) [place] # (Auto) Eos # (Auto) Baso # (Auto) Neutrophils % (Manual) Lymphocytes % (Manual) Monocytes % (Manual) Myelocytes % Platelet Estimate Hypochromasia (manual) Sodium 161 H* Potassium 3.5 L Chloride 122 H Carbon Dioxide 33 H Anion Gap 9 L BUN 25 H Creatinine 1.5 Est GFR ( Amer) 56 Est GFR (Non-Af Amer) 46 POC Glucose (mg/dL) 139 H 114 H Random Glucose 130 H Calcium 7.5 L Phosphorus Magnesium 2.5 H Total Bilirubin AST ALT Alkaline Phosphatase Total Protein Albumin Globulin Albumin/Globulin Ratio Vancomycin Trough 12/05/17 12/06/17 12/06/17 23:38 04:45 06:19 WBC RBC Hgb Hct MCV MCH MCHC RDW Plt Count MPV Neut % (Auto) Lymph % (Auto) [place] % (Auto) Eos % (Auto) Baso % (Auto) Neut # (Auto) Lymph # (Auto) [place] # (Auto) Eos # (Auto) Baso # (Auto) Neutrophils % (Manual) Lymphocytes % (Manual) Monocytes % (Manual) Myelocytes % Platelet Estimate Hypochromasia (manual) Sodium Potassium Chloride Carbon Dioxide Anion Gap BUN Creatinine Est GFR ( Amer) Est GFR (Non-Af Amer) POC Glucose (mg/dL) 182 H 149 H Random Glucose Calcium Phosphorus Magnesium Total Bilirubin AST ALT Alkaline Phosphatase Total Protein Albumin Globulin Albumin/Globulin Ratio Vancomycin Trough 23.5 H 12/06/17 12/06/17 06:19 06:19 WBC 13.9 H RBC 4.04 L Hgb 11.3 L Hct 33.9 L MCV 83.9 MCH 28.1 MCHC 33.5 RDW 17.5 H Plt Count 219 MPV 9.3 Neut % (Auto) 82.7 H Lymph % (Auto) 7.2 L [place] % (Auto) 8.1 Eos % (Auto) 1.5 Baso % (Auto) 0.5 Neut # (Auto) 11.5 H Lymph # (Auto) 1.0 [place] # (Auto) 1.1 H Eos # (Auto) 0.2 Baso # (Auto) 0.1 Neutrophils % (Manual) 83 H Lymphocytes % (Manual) 6 L Monocytes % (Manual) 10 Myelocytes % 1 H Platelet Estimate Normal Hypochromasia (manual) Slight Sodium 161 H* Potassium 3.5 L Chloride 123 H Carbon Dioxide 30 Anion Gap 12 BUN 27 H Creatinine 1.6 H Est GFR ( Amer) 52 Est GFR (Non-Af Amer) 43 POC Glucose (mg/dL) Random Glucose 135 H Calcium 7.6 L Phosphorus 3.4 Magnesium 2.6 H Total Bilirubin 0.5 AST 50 ALT 51 Alkaline Phosphatase 63 Total Protein 6.2 L Albumin 2.7 L Globulin 3.5 Albumin/Globulin Ratio 0.8 L Vancomycin Trough Fingerstick Blood Sugar Results: 149 Critical Care Progress Note - Nutrition Nutrition: Nutrition Category Date Time Status Heart Healthy Diet [DIET] Diets 11/30/17 Lunch Active
[2017-12-06 11:11] LABS: ABG ALLEN TEST POS; ARTERIAL BLOOD GAS HCO3 27.1 mmol/L (21-28); ARTERIAL BLOOD GAS HEMOGLOBIN 10.3 g/dL (11.7-17.4); ARTERIAL BLOOD GAS O2 SAT 98.7 % (95-98); ARTERIAL BLOOD GAS PCO2 40 mm/Hg (35-45); ARTERIAL BLOOD GAS PH 7.44 (7.35-7.45); ARTERIAL BLOOD GAS PO2 101 mm/Hg (80-100); ARTERIAL BLOOD GAS TCO2 28.4 mmol/L (22-28)
--- NOTE | 2017-12-06 11:38 | CP.PCM.PN ---
Subjective - Date & Time of Evaluation Date of Evaluation: 12/06/17 Time of Evaluation: 07:00 - Subjective Subjective: still spiking on therapeutic Vanco with MRSA sputum recultures merrem added may need trach Objective - Vital Signs/Intake and Output Vital Signs (last 24 hours): Temp Pulse Resp BP Pulse Ox 98.6 F 78 22 75/33 L 93 L 12/06/17 04:00 12/06/17 11:13 12/06/17 11:13 12/06/17 11:13 12/06/17 11:13 Intake and Output: 12/06/17 12/06/17 06:59 18:59 Intake Total 1367.0 Output Total 1310 Balance 57.0 - Medications Medications: Current Medications Acetaminophen (Tylenol 650mg/20.3ml Solution Ud) 650 mg PO Q6 PRN PRN Reason: Temperature Last Admin: 12/06/17 09:44 Dose: 650 mg Albuterol/Ipratropium (Duoneb 3 Mg/0.5 Mg (3 Ml) Ud) 3 ml INH RQ6 [facility] Last Admin: 12/06/17 08:00 Dose: 3 ml Apixaban (Eliquis) 2.5 mg PO BID [facility] Last Admin: 12/06/17 09:45 Dose: 2.5 mg Ascorbic Acid (Vitamin C 500 Mg Tab) 500 mg PO DAILY [facility] Last Admin: 12/06/17 09:44 Dose: 500 mg Famotidine (Pepcid) 20 mg PO DAILY [facility] Last Admin: 12/06/17 09:44 Dose: 20 mg Piperacillin Sod/Tazobactam (Sod 3.375 gm/ Sodium Chloride) 100 mls @ 100 mls/ hr IVPB Q6H [facility] Last Admin: 12/06/17 09:45 Dose: 100 mls/hr Dopamine HCl/Dextrose (Dopamine 400mg/250ml D5w) 400 mg in 250 mls @ 30.788 mls /hr IV .Q8H8M PRN; 10 MCG/KG/MIN PRN Reason: DO NOT TITRATE Last Admin: 12/06/17 11:06 Dose: 30.788 mls/hr Meropenem 500 mg/ Sodium (Chloride) 100 mls @ 100 mls/hr IVPB Q8 [facility] Vancomycin HCl 1 gm/ Sodium (Chloride) 250 mls @ 166.7 mls/hr IVPB Q24H [facility] Insulin Aspart (Novolog) 0 unit SC Q6H [facility] PRN Reason: Protocol Last Admin: 12/06/17 06:01 Dose: Not Given Metolazone (Zaroxolyn) 5 mg PO DAILY [facility] Multivitamins/Vitamin C (Multi-Delyn Liquid) 5 ml PO DAILY [facility] Last Admin: 12/06/17 09:45 Dose: 5 ml Tamsulosin HCl (Flomax) 0.4 mg PO DAILY [facility] Last Admin: 12/06/17 09:45 Dose: 0.4 mg Zinc Sulfate (Zinc Sulfate 220 Mg Cap) 220 mg PO DAILY [facility] Last Admin: 12/06/17 09:45 Dose: 220 mg - Labs Labs: 12/06/17 06:19 12/06/17 06:19 PT 16.6 SECONDS (9.7-12.2) H 11/26/17 17:31 INR 1.5 11/26/17 17:31 APTT 31 SECONDS (21-34) 11/26/17 17:31 Assessment and Plan (1) Acute urinary retention Status: Acute (2) Fever Status: Acute (3) Sepsis associated hypotension Status: Acute (4) Pneumonia Status: Acute (5) Respiratory failure Status: Acute
[2017-12-06] MEDS: Vancomycin 1 gm/NS 200 ml 1 GM/200 ML BAG IVPB SCH (12:34)
[2017-12-06] MEDS: Meropenem 500 MG in Sodium Chloride 0.9% 100 ML IVPB SCH ×2 (13:36→21:18)
--- NOTE | 2017-12-06 18:09 | CP.PCM.PN ---
Subjective - Date & Time of Evaluation Date of Evaluation: 12/06/17 Time of Evaluation: 18:00 - Subjective Subjective: patient remains intubated. Objective - Vital Signs/Intake and Output Vital Signs (last 24 hours): Temp Pulse Resp BP Pulse Ox 100.0 F H 95 H 27 H 87/40 L 98 12/06/17 16:00 12/06/17 17:20 12/06/17 17:20 12/06/17 17:20 12/06/17 17:20 Intake and Output: 12/06/17 12/06/17 06:59 18:59 Intake Total 1367.0 1548.8 Output Total 1310 975 Balance 57.0 573.8 - Medications Medications: Current Medications Acetaminophen (Tylenol 650mg/20.3ml Solution Ud) 650 mg PO Q6 PRN PRN Reason: Temperature Last Admin: 12/06/17 09:44 Dose: 650 mg Albuterol/Ipratropium (Duoneb 3 Mg/0.5 Mg (3 Ml) Ud) 3 ml INH RQ6 [facility] Last Admin: 12/06/17 14:15 Dose: 3 ml Apixaban (Eliquis) 2.5 mg PO BID [facility] Last Admin: 12/06/17 17:24 Dose: 2.5 mg Ascorbic Acid (Vitamin C 500 Mg Tab) 500 mg PO DAILY [facility] Last Admin: 12/06/17 09:44 Dose: 500 mg Famotidine (Pepcid) 20 mg PO DAILY [facility] Last Admin: 12/06/17 09:44 Dose: 20 mg Piperacillin Sod/Tazobactam (Sod 3.375 gm/ Sodium Chloride) 100 mls @ 100 mls/ hr IVPB Q6H [facility] Last Admin: 12/06/17 15:37 Dose: 100 mls/hr Dopamine HCl/Dextrose (Dopamine 400mg/250ml D5w) 400 mg in 250 mls @ 30.788 mls /hr IV .Q8H8M PRN; 10 MCG/KG/MIN PRN Reason: DO NOT TITRATE Last Admin: 12/06/17 11:06 Dose: 30.788 mls/hr Meropenem 500 mg/ Sodium (Chloride) 100 mls @ 100 mls/hr IVPB Q8 [facility] Last Admin: 12/06/17 13:36 Dose: 100 mls/hr Vancomycin/Sodium Chloride (Vancomycin 1 Gm/Ns 200 Ml) 1 gm in 200 mls @ 133.333 mls/hr IVPB Q24H [facility] Stop: 12/11/17 13:31 Last Admin: 12/06/17 12:34 Dose: Not Given Insulin Aspart (Novolog) 0 unit SC Q6H [facility] PRN Reason: Protocol Last Admin: 12/06/17 17:23 Dose: Not Given Metolazone (Zaroxolyn) 5 mg PO DAILY [facility] Multivitamins (Hexavitamin) 1 tab PO DAILY [facility] Tamsulosin HCl (Flomax) 0.4 mg PO DAILY [facility] Last Admin: 12/06/17 09:45 Dose: 0.4 mg Zinc Sulfate (Zinc Sulfate 220 Mg Cap) 220 mg PO DAILY [facility] Last Admin: 12/06/17 09:45 Dose: 220 mg - Labs Labs: 12/06/17 06:19 12/06/17 06:19 PT 16.6 SECONDS (9.7-12.2) H 11/26/17 17:31 INR 1.5 11/26/17 17:31 APTT 31 SECONDS (21-34) 11/26/17 17:31 - Constitutional Appears: Non-toxic - Head Exam Head Exam: NORMAL INSPECTION - Eye Exam Eye Exam: Normal appearance - ENT Exam ENT Exam: Mucous Membranes Moist - Neck Exam Neck Exam: Full ROM - Respiratory Exam Respiratory Exam: Decreased Breath Sounds - Cardiovascular Exam Cardiovascular Exam: REGULAR RHYTHM - GI/Abdominal Exam GI & Abdominal Exam: Normal Bowel Sounds - Rectal Exam Rectal Exam: Deferred - Extremities Exam Extremities Exam: Pedal Edema - Back Exam Back Exam: NORMAL INSPECTION - Neurological Exam Neurological Exam: Alert - Psychiatric Exam Psychiatric exam: Normal Affect - Skin Skin Exam: Normal Color Assessment and Plan (1) Cardiac arrest Assessment & Plan: remains intubated. difficulty in weaning vent. he has not required furtehr pacing. recommend discontinuing TVP/ Status: Acute (2) Hypernatremia Assessment & Plan: consider free water boluses. Status: Acute
[2017-12-06] MEDS ORDERED: DOPamine 400mg/250ml D5W 400 MG/250 ML BAG IV PRN ×2 (18:52→19:10)
--- NOTE | 2017-12-06 18:55 | RAD ---
HISTORY: placement of tlc COMPARISON: Chest x-ray performed earlier the same day. TECHNIQUE: Chest, one view. FINDINGS: Examination limited by habitus as well as numerous external wires, leads, and devices which obscure evaluation of the underlying parenchyma. Endotracheal tube terminates at the clavicular level approximately 8.1 cm above the eri; suggest repositioning to 3 cm above the eri. Left IJ approach central venous catheter extends expected location of the SVC. Right-sided IJ approach central venous catheter extends possibly to the level of the deep right atrium or right ventricle. Nasogastric tube extends expected location of the stomach. 2 external defibrillator pads. LUNGS: Moderate interstitial prominence may reflect edema or infection. PLEURA: Small geex-zthqhol-oboy-right pleural effusions. No definite pneumothorax . CARDIOVASCULAR: Cardiomegaly. OSSEOUS STRUCTURES: Osseous demineralization. Degenerative changes. VISUALIZED UPPER ABDOMEN: Unremarkable. OTHER FINDINGS: None. IMPRESSION: Endotracheal tube terminates at the clavicular level approximately 8.1 cm above the eri; suggest repositioning to 3 cm above the eri. Left IJ approach central venous catheter extends expected location of the SVC. Right-sided IJ approach central venous catheter extends possibly to the level of the deep right atrium or right ventricle. Nasogastric tube extends expected location of the stomach. 2 external cardiac defibrillator pads. Moderate interstitial prominence may reflect edema or infection. Small idtf-vjsaxiv-erfs-right pleural effusions. Cardiomegaly. Line placement discussed with patient's [employer] Anthony on 12/06/17 at 6:52 p.m.
[2017-12-06] MEDS: metOLazone 5 MG TAB PO SCH (21:18)
[2017-12-07] MEDS: Albuterol-Ipratrop 3 mg / 0.5 (3 ml) UD INH SCH ×4 (01:36→20:04)
[2017-12-07] MEDS: Piperacillin/Tazobact 3.375 GM in Sodium Chloride 0.9% 100 ML IVPB SCH (03:59)
[2017-12-07] MEDS: Acetaminophen 650mg/20.3ml solution UD PO PRN (04:02)
[2017-12-07] MEDS: DOPamine 400mg/250ml D5W 400 MG/250 ML BAG IV PRN ×3 (04:04→23:34)
[2017-12-07] MEDS: Meropenem 500 MG in Sodium Chloride 0.9% 100 ML IVPB SCH ×3 (06:04→21:59)
[2017-12-07] MEDS: (Novolog) Insulin Aspart, Recombinant 100 u/ml 10 ml vial SC SCH ×3 (06:14→17:28)
[2017-12-07 06:21] LABS: ABG ALLEN TEST POS; ARTERIAL BLOOD GAS HCO3 28.3 mmol/L (21-28); ARTERIAL BLOOD GAS HEMOGLOBIN 10.6 g/dL (11.7-17.4); ARTERIAL BLOOD GAS O2 SAT 98.8 % (95-98); ARTERIAL BLOOD GAS PCO2 53 mm/Hg (35-45); ARTERIAL BLOOD GAS PH 7.37 (7.35-7.45); ARTERIAL BLOOD GAS PO2 180 mm/Hg (80-100); ARTERIAL BLOOD GAS TCO2 32.2 mmol/L (22-28)
[2017-12-07 06:38] LABS: BASO % 0.3 % (0.0-2.0); EOS # 0.1 K/uL (0.0-0.7); EOS % 0.7 % (0.0-4.0); HEMOGLOBIN 10.2 g/dL (12.0-18.0); LYMPH % 6.5 % (20.0-40.0); MEAN CELL VOLUME 84.4 fL (80.0-94.0); MEAN CORPUSCULAR HEMOGLOBIN 28.2 pg (27.0-31.0); MEAN CORPUSCULAR HGB CONC 33.4 g/dL (33.0-37.0); MEAN PLATELET VOLUME 8.8 fL (7.2-11.7); MONO % 6.6 % (0.0-10.0); NEUT # 13.3 K/uL (1.8-7.0); NEUT % 85.9 % (50.0-75.0); PLATELET COUNT 187 K/uL (130-400); RBC 3.64 Mil/uL (4.40-5.90); RED CELL DISTRIBUTION WIDTH 17.2 % (11.5-14.5); WHITE BLOOD COUNT 15.5 K/uL (4.8-10.8)
[2017-12-07 07:16] LABS: ALB/GLOB RATIO 0.8 (1.0-2.1); ALBUMIN 2.5 g/dL (3.5-5.0); CALCIUM 7.2 mg/dl (8.6-10.4)
[2017-12-07 08:46] LABS: BANDS 1 % (0-2); LYMPHOCYTE 12 % (20-40); MONOCYTE 4 % (0-10); NEUTROPHIL 83 % (50-75); TOTAL CELLS COUNTED 100
[2017-12-07 08:47] LABS: ANISOCYTOSIS SLIGHT; HYPOCHROMIC SLIGHT; PLATELET ESTIMATE NORMAL (NORMAL); POLYCHROMIC SLIGHT; TARGET CELLS SLIGHT
[2017-12-07 08:48] LABS: TEARDROP CELLS SLIGHT
[2017-12-07] MEDS ORDERED: Sodium Chloride 0.45% 1,000 ML IV SCH (09:15)
[2017-12-07] MEDS: Multiple Vitamins Tab PO SCH (10:20)
[2017-12-07 10:22] LABS: ABG ALLEN TEST POS; ARTERIAL BLOOD GAS HCO3 29.1 mmol/L (21-28); ARTERIAL BLOOD GAS O2 SAT 96.2 % (95-98); ARTERIAL BLOOD GAS PCO2 48 mm/Hg (35-45); ARTERIAL BLOOD GAS PH 7.42 (7.35-7.45); ARTERIAL BLOOD GAS PO2 70 mm/Hg (80-100); ARTERIAL BLOOD GAS TCO2 32.6 mmol/L (22-28)
--- NOTE | 2017-12-07 10:55 | CP.CCUPN ---
<Rick Biswas - Last Filed: 12/07/17 11:45> CCU Subjective - Physician Review Subjective (Free Text): 12/07/17 10:53 patient seen and examined at bedside discrepancy in ABG and O2 sat increase PEEP and TV Dopamine for giselle Pacing wire removed CCU Objective - Vital Signs / Intake & Output Intake and Output (Last 8hrs): Intake & Output 12/06/17 12/07/17 12/07/17 22:59 06:59 14:59 Intake Total 806.0 876.2 Output Total 440 470 Balance 366.0 406.2 Weight 201 lb 6.4 oz Intake: IV 250 Intake, IV Amount 346.0 226.2 Left Proximal Port 122.8 226.2 Internal Jugular Right Distal Port 123.2 Right Midline 100 Tube Feeding 400 400 Other 60 Output: Urine 440 470 Urethral (Singh) 440 470 - Physical Exam Head: Positive for: Atraumatic, Normocephalic Pupils: Positive for: PERRL Mouth: Positive for: Moist Mucous Membranes Respiratory/Chest: Positive for: Other (intubated) Abdomen: Positive for: Normal Bowel Sounds. Negative for: Tenderness, Distention, Peritoneal Signs Psychiatric: Positive for: Alert, Oriented x 3 - Medications Active Medications: Active Medications Generic Name Dose Route Start Last Admin Trade Name Freq PRN Reason Stop Dose Admin Acetaminophen 650 mg 12/06/17 09:30 12/07/17 04:02 Tylenol 650mg/20.3ml Solution Ud PO 650 mg Q6 PRN Administration Temperature Albuterol/Ipratropium 3 ml 12/03/17 14:00 12/07/17 07:43 Duoneb 3 Mg/0.5 Mg (3 Ml) Ud INH 3 ml RQ6 ABHIJEET Administration Apixaban 2.5 mg 12/04/17 10:00 12/07/17 10:19 Eliquis PO 2.5 mg BID ABHIJEET Administration Ascorbic Acid 500 mg 12/05/17 10:00 12/07/17 10:20 Vitamin C 500 Mg Tab PO 500 mg DAILY ABHIJEET Administration Famotidine 20 mg 11/27/17 10:00 12/07/17 10:20 Pepcid PO 20 mg DAILY ABHIJEET Administration Meropenem 500 mg/ Sodium 100 mls @ 100 mls/hr 12/06/17 14:00 12/07/17 06:04 Chloride IVPB 100 mls/hr Q8 ABHIJEET Administration Vancomycin/Sodium Chloride 1 gm in 200 mls @ 133.333 mls/hr 12/06/17 12:15 12:34 Vancomycin 1 Gm/Ns 200 Ml IVPB 12/11/17 13:31 Not Given Q24H ABHIJEET Dopamine HCl/Dextrose 400 mg in 250 mls @ 34.875 mls/hr 12/06/17 19:16 04:04 Dopamine 400mg/250ml D5w IV 10 mcg/kg/min .Q7H11M PRN 34.875 mls/hr TITRATE PER MD ORDER Administration Protocol 10 MCG/KG/MIN Sodium Chloride 1,000 mls @ 100 mls/hr 12/07/17 09:15 Sodium Chloride 0.45% IV .Q10H ABHIJEET Insulin Aspart 0 unit 12/02/17 18:00 12/07/17 06:14 Novolog SC 2 unit Q6H ABHIJEET Administration Protocol Metolazone 5 mg 12/06/17 19:48 12/06/17 21:18 Zaroxolyn PO 5 mg DAILY ABHIJEET Administration Multivitamins 1 tab 12/07/17 10:00 12/07/17 10:20 Hexavitamin PO 1 tab DAILY ABHIJEET Administration Tamsulosin HCl 0.4 mg 11/27/17 10:00 12/07/17 10:20 Flomax PO 0.4 mg DAILY ABHIJEET Administration Zinc Sulfate 220 mg 12/02/17 10:00 12/07/17 10:20 Zinc Sulfate 220 Mg Cap PO 220 mg DAILY ABHIJEET Administration - Patient Studies Lab Studies: Microbiology Studies 12/06/17 09:19 S.aureus & Coag-Neg Staph PNA FISH - Preliminary Blood-Venous Blood Culture - Preliminary Gram Positive Cocci Gram Stain - Preliminary 12/06/17 09:19 Urine Culture - Final Urine,Catheterized No Growth (<1,000 CFU/ML) 12/06/17 09:19 Gram Stain - Final Trachasp Sputum Culture - Preliminary Gram Positive Cocci 12/01/17 17:52 Gram Stain - Final Trachasp Sputum Culture - Final Methicillin Resistant S Aureus Lab Studies 12/07/17 12/07/17 12/07/17 Range/Units 10:18 06:21 06:21 WBC (4.8-10.8) K/uL RBC (4.40-5.90) Mil/uL Hgb (12.0-18.0) g/dL Hct (35.0-51.0) % MCV (80.0-94.0) fL MCH (27.0-31.0) pg MCHC (33.0-37.0) g/dL RDW (11.5-14.5) % Plt Count (130-400) K/uL MPV (7.2-11.7) fL Neut % (Auto) (50.0-75.0) % Lymph % (Auto) (20.0-40.0) % [place] % (Auto) (0.0-10.0) % Eos % (Auto) (0.0-4.0) % Baso % (Auto) (0.0-2.0) % Neut # (Auto) (1.8-7.0) K/uL Lymph # (Auto) (1.0-4.3) K/uL [place] # (Auto) (0.0-0.8) K/uL Eos # (Auto) (0.0-0.7) K/uL Baso # (Auto) (0.0-0.2) K/uL Neutrophils % (Manual) (50-75) % Band Neutrophils % (0-2) % Lymphocytes % (Manual) (20-40) % Monocytes % (Manual) (0-10) % Platelet Estimate (NORMAL) Polychromasia Hypochromasia (manual) Anisocytosis (manual) Target Cells Tear Drop Cells Puncture Site Rr pCO2 48 H (35-45) mm/Hg pO2 70 L (80-100) mm/Hg HCO3 29.1 H (21-28) mmol/L ABG pH 7.42 (7.35-7.45) ABG Total CO2 32.6 H (22-28) mmol/L ABG O2 Saturation 96.2 (95-98) % ABG Base Excess 5.5 H (-2.0-3.0) mmol/L ABG Hemoglobin (11.7-17.4) g/dL ABG Carboxyhemoglobin (0.5-1.5) % POC ABG HHb (Measured) (0.0-5.0) % ABG Methemoglobin (0.0-3.0) % Oscar Test Pos ABG Potassium 3.5 L (3.6-5.2) mmol/L A-a O2 Difference 583.0 mm/Hg Respiratory Index 8.3 Hgb O2 Saturation (95.0-98.0) % Glucose 181 H (75-110) mg/dl Lactate 1.5 (0.7-2.1) mmol/L Vent Mode Prvc Mechanical Rate 16 FiO2 100.0 % Tidal Volume 550 PEEP 10 Crit Value Called To Dr kelli awan Crit Value Called By Micki mendoza pesticide control inspector Crit Value Read Back Y Blood Gas Notified Time 1025 Sodium 162.0 H* 162 H* (132-148) mmol/L Potassium 3.6 (3.6-5.2) mmol/L Chloride 129.0 H 124 H (98-107) mmol/L Carbon Dioxide 30 (22-30) mmol/L Anion Gap 12 (10-20) BUN 31 H (9-20) mg/dL Creatinine 1.9 H (0.8-1.5) mg/dL Est GFR ( Amer) 42 Est GFR (Non-Af Amer) 35 POC Glucose (mg/dL) (65-110) mg/dL Random Glucose 168 H (75-110) mg/dL Calcium 7.2 L (8.6-10.4) mg/dl Total Bilirubin 0.5 (0.2-1.3) mg/dL AST 30 (17-59) U/L ALT 48 (21-72) U/L Alkaline Phosphatase 51 (38-126) U/L Total Protein 5.8 L (6.3-8.3) g/dL Albumin 2.5 L (3.5-5.0) g/dL Globulin 3.2 (2.2-3.9) gm/dL Albumin/Globulin Ratio 0.8 L (1.0-2.1) Arterial Blood Potassium 3.5 L (3.6-5.2) mmol/L Random Vancomycin 14.67 ug/mL 12/07/17 12/07/17 12/07/17 Range/Units 06:20 06:00 05:15 WBC 15.5 H (4.8-10.8) K/uL RBC 3.64 L (4.40-5.90) Mil/uL Hgb 10.2 L (12.0-18.0) g/dL Hct 30.7 L (35.0-51.0) % MCV 84.4 (80.0-94.0) fL MCH 28.2 (27.0-31.0) pg MCHC 33.4 (33.0-37.0) g/dL RDW 17.2 H (11.5-14.5) % Plt Count 187 (130-400) K/uL MPV 8.8 (7.2-11.7) fL Neut % (Auto) 85.9 H (50.0-75.0) % Lymph % (Auto) 6.5 L (20.0-40.0) % [place] % (Auto) 6.6 (0.0-10.0) % Eos % (Auto) 0.7 (0.0-4.0) % Baso % (Auto) 0.3 (0.0-2.0) % Neut # (Auto) 13.3 H (1.8-7.0) K/uL Lymph # (Auto) 1.0 (1.0-4.3) K/uL [place] # (Auto) 1.0 H (0.0-0.8) K/uL Eos # (Auto) 0.1 (0.0-0.7) K/uL Baso # (Auto) 0.0 (0.0-0.2) K/uL Neutrophils % (Manual) 83 H (50-75) % Band Neutrophils % 1 (0-2) % Lymphocytes % (Manual) 12 L (20-40) % Monocytes % (Manual) 4 (0-10) % Platelet Estimate Normal (NORMAL) Polychromasia Slight Hypochromasia (manual) Slight Anisocytosis (manual) Slight Target Cells Slight Tear Drop Cells Slight Puncture Site Rr pCO2 53 H (35-45) mm/Hg pO2 180 H (80-100) mm/Hg HCO3 28.3 H (21-28) mmol/L ABG pH 7.37 (7.35-7.45) ABG Total CO2 32.2 H (22-28) mmol/L ABG O2 Saturation 98.8 H (95-98) % ABG Base Excess 4.4 H (-2.0-3.0) mmol/L ABG Hemoglobin 10.6 L (11.7-17.4) g/dL ABG Carboxyhemoglobin 1.5 (0.5-1.5) % POC ABG HHb (Measured) 1.2 (0.0-5.0) % ABG Methemoglobin 1.2 (0.0-3.0) % Oscar Test Pos ABG Potassium (3.6-5.2) mmol/L A-a O2 Difference 467.0 mm/Hg Respiratory Index 2.6 Hgb O2 Saturation 96.1 (95.0-98.0) % Glucose (75-110) mg/dl Lactate (0.7-2.1) mmol/L Vent Mode Prvc Mechanical Rate 16 FiO2 100.0 % Tidal Volume 500 PEEP 5 Crit Value Called To Crit Value Called By Crit Value Read Back Blood Gas Notified Time Sodium (132-148) mmol/L Potassium (3.6-5.2) mmol/L Chloride (98-107) mmol/L Carbon Dioxide (22-30) mmol/L Anion Gap (10-20) BUN (9-20) mg/dL Creatinine (0.8-1.5) mg/dL Est GFR ( Amer) Est GFR (Non-Af Amer) POC Glucose (mg/dL) 151 H (65-110) mg/dL Random Glucose (75-110) mg/dL Calcium (8.6-10.4) mg/dl Total Bilirubin (0.2-1.3) mg/dL AST (17-59) U/L ALT (21-72) U/L Alkaline Phosphatase (38-126) U/L Total Protein (6.3-8.3) g/dL Albumin (3.5-5.0) g/dL Globulin (2.2-3.9) gm/dL Albumin/Globulin Ratio (1.0-2.1) Arterial Blood Potassium (3.6-5.2) mmol/L Random Vancomycin ug/mL 12/06/17 12/06/17 12/06/17 Range/Units 23:43 17:52 17:22 WBC (4.8-10.8) K/uL RBC (4.40-5.90) Mil/uL Hgb (12.0-18.0) g/dL Hct (35.0-51.0) % MCV (80.0-94.0) fL MCH (27.0-31.0) pg MCHC (33.0-37.0) g/dL RDW (11.5-14.5) % Plt Count (130-400) K/uL MPV (7.2-11.7) fL Neut % (Auto) (50.0-75.0) % Lymph % (Auto) (20.0-40.0) % [place] % (Auto) (0.0-10.0) % Eos % (Auto) (0.0-4.0) % Baso % (Auto) (0.0-2.0) % Neut # (Auto) (1.8-7.0) K/uL Lymph # (Auto) (1.0-4.3) K/uL [place] # (Auto) (0.0-0.8) K/uL Eos # (Auto) (0.0-0.7) K/uL Baso # (Auto) (0.0-0.2) K/uL Neutrophils % (Manual) (50-75) % Band Neutrophils % (0-2) % Lymphocytes % (Manual) (20-40) % Monocytes % (Manual) (0-10) % Platelet Estimate (NORMAL) Polychromasia Hypochromasia (manual) Anisocytosis (manual) Target Cells Tear Drop Cells Puncture Site pCO2 (35-45) mm/Hg pO2 (80-100) mm/Hg HCO3 (21-28) mmol/L ABG pH (7.35-7.45) ABG Total CO2 (22-28) mmol/L ABG O2 Saturation (95-98) % ABG Base Excess (-2.0-3.0) mmol/L ABG Hemoglobin (11.7-17.4) g/dL ABG Carboxyhemoglobin (0.5-1.5) % POC ABG HHb (Measured) (0.0-5.0) % ABG Methemoglobin (0.0-3.0) % Oscar Test ABG Potassium (3.6-5.2) mmol/L A-a O2 Difference mm/Hg Respiratory Index Hgb O2 Saturation (95.0-98.0) % Glucose (75-110) mg/dl Lactate (0.7-2.1) mmol/L Vent Mode Mechanical Rate FiO2 % Tidal Volume PEEP Crit Value Called To Crit Value Called By Crit Value Read Back Blood Gas Notified Time Sodium (132-148) mmol/L Potassium (3.6-5.2) mmol/L Chloride (98-107) mmol/L Carbon Dioxide (22-30) mmol/L Anion Gap (10-20) BUN (9-20) mg/dL Creatinine (0.8-1.5) mg/dL Est GFR ( Amer) Est GFR (Non-Af Amer) POC Glucose (mg/dL) 141 H 195 H 139 H (65-110) mg/dL Random Glucose (75-110) mg/dL Calcium (8.6-10.4) mg/dl Total Bilirubin (0.2-1.3) mg/dL AST (17-59) U/L ALT (21-72) U/L Alkaline Phosphatase (38-126) U/L Total Protein (6.3-8.3) g/dL Albumin (3.5-5.0) g/dL Globulin (2.2-3.9) gm/dL Albumin/Globulin Ratio (1.0-2.1) Arterial Blood Potassium (3.6-5.2) mmol/L Random Vancomycin ug/mL 12/06/17 12/06/17 Range/Units 11:39 05:01 WBC (4.8-10.8) K/uL RBC (4.40-5.90) Mil/uL Hgb (12.0-18.0) g/dL Hct (35.0-51.0) % MCV (80.0-94.0) fL MCH (27.0-31.0) pg MCHC (33.0-37.0) g/dL RDW (11.5-14.5) % Plt Count (130-400) K/uL MPV (7.2-11.7) fL Neut % (Auto) (50.0-75.0) % Lymph % (Auto) (20.0-40.0) % [place] % (Auto) (0.0-10.0) % Eos % (Auto) (0.0-4.0) % Baso % (Auto) (0.0-2.0) % Neut # (Auto) (1.8-7.0) K/uL Lymph # (Auto) (1.0-4.3) K/uL [place] # (Auto) (0.0-0.8) K/uL Eos # (Auto) (0.0-0.7) K/uL Baso # (Auto) (0.0-0.2) K/uL Neutrophils % (Manual) (50-75) % Band Neutrophils % (0-2) % Lymphocytes % (Manual) (20-40) % Monocytes % (Manual) (0-10) % Platelet Estimate (NORMAL) Polychromasia Hypochromasia (manual) Anisocytosis (manual) Target Cells Tear Drop Cells Puncture Site Lr pCO2 40 (35-45) mm/Hg pO2 101 H (80-100) mm/Hg HCO3 27.1 (21-28) mmol/L ABG pH 7.44 (7.35-7.45) ABG Total CO2 28.4 H (22-28) mmol/L ABG O2 Saturation 98.7 H (95-98) % ABG Base Excess 2.8 (-2.0-3.0) mmol/L ABG Hemoglobin 10.3 L (11.7-17.4) g/dL ABG Carboxyhemoglobin 1.3 (0.5-1.5) % POC ABG HHb (Measured) 1.3 (0.0-5.0) % ABG Methemoglobin 1.3 (0.0-3.0) % Oscar Test Pos ABG Potassium (3.6-5.2) mmol/L A-a O2 Difference 562.0 mm/Hg Respiratory Index 5.6 Hgb O2 Saturation 96.2 (95.0-98.0) % Glucose (75-110) mg/dl Lactate (0.7-2.1) mmol/L Vent Mode Prvc Mechanical Rate 16 FiO2 100.0 % Tidal Volume 500 PEEP 5 Crit Value Called To Crit Value Called By Crit Value Read Back Blood Gas Notified Time Sodium (132-148) mmol/L Potassium (3.6-5.2) mmol/L Chloride (98-107) mmol/L Carbon Dioxide (22-30) mmol/L Anion Gap (10-20) BUN (9-20) mg/dL Creatinine (0.8-1.5) mg/dL Est GFR ( Amer) Est GFR (Non-Af Amer) POC Glucose (mg/dL) 156 H (65-110) mg/dL Random Glucose (75-110) mg/dL Calcium (8.6-10.4) mg/dl Total Bilirubin (0.2-1.3) mg/dL AST (17-59) U/L ALT (21-72) U/L Alkaline Phosphatase (38-126) U/L Total Protein (6.3-8.3) g/dL Albumin (3.5-5.0) g/dL Globulin (2.2-3.9) gm/dL Albumin/Globulin Ratio (1.0-2.1) Arterial Blood Potassium (3.6-5.2) mmol/L Random Vancomycin ug/mL Laboratory Results - last 24 hr 12/06/17 12/06/17 12/06/17 05:01 11:39 17:22 WBC RBC Hgb Hct MCV MCH MCHC RDW Plt Count MPV Neut % (Auto) Lymph % (Auto) [place] % (Auto) Eos % (Auto) Baso % (Auto) Neut # (Auto) Lymph # (Auto) [place] # (Auto) Eos # (Auto) Baso # (Auto) Neutrophils % (Manual) Band Neutrophils % Lymphocytes % (Manual) Monocytes % (Manual) Platelet Estimate Polychromasia Hypochromasia (manual) Anisocytosis (manual) Target Cells Tear Drop Cells Puncture Site Lr pCO2 40 pO2 101 H HCO3 27.1 ABG pH 7.44 ABG Total CO2 28.4 H ABG O2 Saturation 98.7 H ABG Base Excess 2.8 ABG Hemoglobin 10.3 L ABG Carboxyhemoglobin 1.3 POC ABG HHb (Measured) 1.3 ABG Methemoglobin 1.3 Oscar Test Pos ABG Potassium A-a O2 Difference 562.0 Respiratory Index 5.6 Hgb O2 Saturation 96.2 Glucose Lactate Vent Mode Prvc Mechanical Rate 16 FiO2 100.0 Tidal Volume 500 PEEP 5 Crit Value Called To Crit Value Called By Crit Value Read Back Blood Gas Notified Time Sodium Potassium Chloride Carbon Dioxide Anion Gap BUN Creatinine Est GFR ( Amer) Est GFR (Non-Af Amer) POC Glucose (mg/dL) 156 H 139 H Random Glucose Calcium Total Bilirubin AST ALT Alkaline Phosphatase Total Protein Albumin Globulin Albumin/Globulin Ratio Arterial Blood Potassium Random Vancomycin 12/06/17 12/06/17 12/07/17 17:52 23:43 05:15 WBC RBC Hgb Hct MCV MCH MCHC RDW Plt Count MPV Neut % (Auto) Lymph % (Auto) [place] % (Auto) Eos % (Auto) Baso % (Auto) Neut # (Auto) Lymph # (Auto) [place] # (Auto) Eos # (Auto) Baso # (Auto) Neutrophils % (Manual) Band Neutrophils % Lymphocytes % (Manual) Monocytes % (Manual) Platelet Estimate Polychromasia Hypochromasia (manual) Anisocytosis (manual) Target Cells Tear Drop Cells Puncture Site Rr pCO2 53 H pO2 180 H HCO3 28.3 H ABG pH 7.37 ABG Total CO2 32.2 H ABG O2 Saturation 98.8 H ABG Base Excess 4.4 H ABG Hemoglobin 10.6 L ABG Carboxyhemoglobin 1.5 POC ABG HHb (Measured) 1.2 ABG Methemoglobin 1.2 Oscar Test Pos ABG Potassium A-a O2 Difference 467.0 Respiratory Index 2.6 Hgb O2 Saturation 96.1 Glucose Lactate Vent Mode Prvc Mechanical Rate 16 FiO2 100.0 Tidal Volume 500 PEEP 5 Crit Value Called To Crit Value Called By Crit Value Read Back Blood Gas Notified Time Sodium Potassium Chloride Carbon Dioxide Anion Gap BUN Creatinine Est GFR ( Amer) Est GFR (Non-Af Amer) POC Glucose (mg/dL) 195 H 141 H Random Glucose Calcium Total Bilirubin AST ALT Alkaline Phosphatase Total Protein Albumin Globulin Albumin/Globulin Ratio Arterial Blood Potassium Random Vancomycin 12/07/17 12/07/17 12/07/17 06:00 06:20 06:21 WBC 15.5 H RBC 3.64 L Hgb 10.2 L Hct 30.7 L MCV 84.4 MCH 28.2 MCHC 33.4 RDW 17.2 H Plt Count 187 MPV 8.8 Neut % (Auto) 85.9 H Lymph % (Auto) 6.5 L [place] % (Auto) 6.6 Eos % (Auto) 0.7 Baso % (Auto) 0.3 Neut # (Auto) 13.3 H Lymph # (Auto) 1.0 [place] # (Auto) 1.0 H Eos # (Auto) 0.1 Baso # (Auto) 0.0 Neutrophils % (Manual) 83 H Band Neutrophils % 1 Lymphocytes % (Manual) 12 L Monocytes % (Manual) 4 Platelet Estimate Normal Polychromasia Slight Hypochromasia (manual) Slight Anisocytosis (manual) Slight Target Cells Slight Tear Drop Cells Slight Puncture Site pCO2 pO2 HCO3 ABG pH ABG Total CO2 ABG O2 Saturation ABG Base Excess ABG Hemoglobin ABG Carboxyhemoglobin POC ABG HHb (Measured) ABG Methemoglobin Oscar Test ABG Potassium A-a O2 Difference Respiratory Index Hgb O2 Saturation Glucose Lactate Vent Mode Mechanical Rate FiO2 Tidal Volume PEEP Crit Value Called To Crit Value Called By Crit Value Read Back Blood Gas Notified Time Sodium 162 H* Potassium 3.6 Chloride 124 H Carbon Dioxide 30 Anion Gap 12 BUN 31 H Creatinine 1.9 H Est GFR ( Amer) 42 Est GFR (Non-Af Amer) 35 POC Glucose (mg/dL) 151 H Random Glucose 168 H Calcium 7.2 L Total Bilirubin 0.5 AST 30 ALT 48 Alkaline Phosphatase 51 Total Protein 5.8 L Albumin 2.5 L Globulin 3.2 Albumin/Globulin Ratio 0.8 L Arterial Blood Potassium Random Vancomycin 12/07/17 12/07/17 06:21 10:18 WBC RBC Hgb Hct MCV MCH MCHC RDW Plt Count MPV Neut % (Auto) Lymph % (Auto) [place] % (Auto) Eos % (Auto) Baso % (Auto) Neut # (Auto) Lymph # (Auto) [place] # (Auto) Eos # (Auto) Baso # (Auto) Neutrophils % (Manual) Band Neutrophils % Lymphocytes % (Manual) Monocytes % (Manual) Platelet Estimate Polychromasia Hypochromasia (manual) Anisocytosis (manual) Target Cells Tear Drop Cells Puncture Site Rr pCO2 48 H pO2 70 L HCO3 29.1 H ABG pH 7.42 ABG Total CO2 32.6 H ABG O2 Saturation 96.2 ABG Base Excess 5.5 H ABG Hemoglobin ABG Carboxyhemoglobin POC ABG HHb (Measured) ABG Methemoglobin Oscar Test Pos ABG Potassium 3.5 L A-a O2 Difference 583.0 Respiratory Index 8.3 Hgb O2 Saturation Glucose 181 H Lactate 1.5 Vent Mode Prvc Mechanical Rate 16 FiO2 100.0 Tidal Volume 550 PEEP 10 Crit Value Called To Dr kelli awan Crit Value Called By Micki mendoza pesticide control inspector Crit Value Read Back Y Blood Gas Notified Time 1025 Sodium 162.0 H* Potassium Chloride 129.0 H Carbon Dioxide Anion Gap BUN Creatinine Est GFR ( Amer) Est GFR (Non-Af Amer) POC Glucose (mg/dL) Random Glucose Calcium Total Bilirubin AST ALT Alkaline Phosphatase Total Protein Albumin Globulin Albumin/Globulin Ratio Arterial Blood Potassium 3.5 L Random Vancomycin 14.67 Fingerstick Blood Sugar Results: 151 Critical Care Progress Note - Nutrition Nutrition: Nutrition Category Date Time Status Heart Healthy Diet [DIET] Diets 11/30/17 Lunch Active Assessment/Plan - Assessment and Plan (Free Text) Assessment: 72M s/p Respiratory failure, Bradycardia Plan: Psych: no acute issues Neuro: prior CVA Cardio: HTN (Bruno) transvenous pacing catheter removed yesterday get CVP Pulm: Asthma, COPD, hypoxia intubated - FIO2 100%, RR 16, Tv 500, increase PEEP septic shock possible 2/2 pneumonia vanco 1gm/meropenem 1gm duoneb CT angio was negative for PE Acetylcysteine 6mL PO Q12 recheck ABG GI: no acute issues Renal/Uro: BPH continue flomax 0.4mg QD Endo: no acute issues Electrolytes: hypernatremia 0.45 NS 100cc/hr - hold until CVP is obtained metolazone 5mg PO QD ID: Septic shock, MRSA + sputum culture (Mangia) vanco 1gm meropenem dopamine Skin: wound culture Vitamin C zinc sulfate PPx: pepcid 20mg QD d/c lovenox 80mg Q12hr due to bleeding at IV site eloquist 2.5mg po BID <Justino Awan S - Last Filed: 12/07/17 18:32> CCU Objective - Vital Signs / Intake & Output Vital Signs (Last 4 hours): Vital Signs Temp Pulse Resp BP Pulse Ox 12/07/17 16:00 98.6 F 80 16 100 12/07/17 15:59 79 16 89/46 L 100 12/07/17 15:00 76 16 100 12/07/17 14:59 76 16 87/54 L 100 Intake and Output (Last 8hrs): Intake & Output 12/07/17 12/07/17 12/07/17 06:59 14:59 22:59 Intake Total 876.2 1390.7 249.8 Output Total 470 980 660 Balance 406.2 410.7 -410.2 Weight 201 lb 6.4 oz Intake: IV 250 250 94 Intake, IV Amount 226.2 740.7 55.8 Left Medial Port Internal 500 Jugular Left Proximal Port 226.2 240.7 55.8 Internal Jugular Tube Feeding 400 400 100 Output: Urine 470 980 660 Urethral (Singh) 470 980 660 Other: # Bowel Movements 0 0 - Medications Active Medications: Active Medications Generic Name Dose Route Start Last Admin Trade Name Freq PRN Reason Stop Dose Admin Acetaminophen 650 mg 12/06/17 09:30 12/07/17 04:02 Tylenol 650mg/20.3ml Solution Ud PO 650 mg Q6 PRN Administration Temperature Albuterol/Ipratropium 3 ml 12/03/17 14:00 12/07/17 13:53 Duoneb 3 Mg/0.5 Mg (3 Ml) Ud INH 3 ml RQ6 ABHIJEET Administration Apixaban 2.5 mg 12/04/17 10:00 12/07/17 17:29 Eliquis PO 2.5 mg BID ABHIJEET Administration Ascorbic Acid 500 mg 12/05/17 10:00 12/07/17 10:20 Vitamin C 500 Mg Tab PO 500 mg DAILY ABHIJEET Administration Famotidine 20 mg 11/27/17 10:00 12/07/17 10:20 Pepcid PO 20 mg DAILY ABHIJEET Administration Meropenem 500 mg/ Sodium 100 mls @ 100 mls/hr 12/06/17 14:00 12/07/17 13:30 Chloride IVPB 100 mls/hr Q8 ABHIJEET Administration Vancomycin/Sodium Chloride 1 gm in 200 mls @ 133.333 mls/hr 12/06/17 12:15 11:41 Vancomycin 1 Gm/Ns 200 Ml IVPB 12/11/17 13:31 133.333 mls/hr Q24H ABHIJEET Administration Dopamine HCl/Dextrose 400 mg in 250 mls @ 34.875 mls/hr 12/06/17 19:16 17:26 Dopamine 400mg/250ml D5w IV 9 mcg/kg/min .Q7H11M PRN 31.388 mls/hr TITRATE PER MD ORDER Titration Protocol 10 MCG/KG/MIN Insulin Aspart 0 unit 12/02/17 18:00 12/07/17 17:28 Novolog SC 2 unit Q6H ABHIJEET Administration Protocol Metolazone 5 mg 12/06/17 19:48 12/07/17 12:47 Zaroxolyn PO 5 mg DAILY ABHIJEET Administration Multivitamins 1 tab 12/07/17 10:00 12/07/17 10:20 Hexavitamin PO 1 tab DAILY ABHIJEET Administration Tamsulosin HCl 0.4 mg 11/27/17 10:00 12/07/17 10:20 Flomax PO 0.4 mg DAILY ABHIJEET Administration Zinc Sulfate 220 mg 12/02/17 10:00 12/07/17 10:20 Zinc Sulfate 220 Mg Cap PO 220 mg DAILY ABHIJEET Administration - Patient Studies Lab Studies: Microbiology Studies 12/06/17 09:19 S.aureus & Coag-Neg Staph PNA FISH - Preliminary Blood-Venous Blood Culture - Preliminary Gram Positive Cocci Gram Stain - Preliminary 12/06/17 09:19 Urine Culture - Final Urine,Catheterized No Growth (<1,000 CFU/ML) 12/06/17 09:19 Gram Stain - Final Trachasp Sputum Culture - Preliminary Gram Positive Cocci Lab Studies 12/07/17 12/07/17 12/07/17 Range/Units 17:25 11:38 10:18 WBC (4.8-10.8) K/uL RBC (4.40-5.90) Mil/uL Hgb (12.0-18.0) g/dL Hct (35.0-51.0) % MCV (80.0-94.0) fL MCH (27.0-31.0) pg MCHC (33.0-37.0) g/dL RDW (11.5-14.5) % Plt Count (130-400) K/uL MPV (7.2-11.7) fL Neut % (Auto) (50.0-75.0) % Lymph % (Auto) (20.0-40.0) % [place] % (Auto) (0.0-10.0) % Eos % (Auto) (0.0-4.0) % Baso % (Auto) (0.0-2.0) % Neut # (Auto) (1.8-7.0) K/uL Lymph # (Auto) (1.0-4.3) K/uL [place] # (Auto) (0.0-0.8) K/uL Eos # (Auto) (0.0-0.7) K/uL Baso # (Auto) (0.0-0.2) K/uL Neutrophils % (Manual) (50-75) % Band Neutrophils % (0-2) % Lymphocytes % (Manual) (20-40) % Monocytes % (Manual) (0-10) % Platelet Estimate (NORMAL) Polychromasia Hypochromasia (manual) Anisocytosis (manual) Target Cells Tear Drop Cells Puncture Site Rr pCO2 48 H (35-45) mm/Hg pO2 70 L (80-100) mm/Hg HCO3 29.1 H (21-28) mmol/L ABG pH 7.42 (7.35-7.45) ABG Total CO2 32.6 H (22-28) mmol/L ABG O2 Saturation 96.2 (95-98) % ABG Base Excess 5.5 H (-2.0-3.0) mmol/L ABG Hemoglobin (11.7-17.4) g/dL ABG Carboxyhemoglobin (0.5-1.5) % POC ABG HHb (Measured) (0.0-5.0) % ABG Methemoglobin (0.0-3.0) % Oscar Test Pos ABG Potassium 3.5 L (3.6-5.2) mmol/L A-a O2 Difference 583.0 mm/Hg Respiratory Index 8.3 Hgb O2 Saturation (95.0-98.0) % Glucose 181 H (75-110) mg/dl Lactate 1.5 (0.7-2.1) mmol/L Vent Mode Prvc Mechanical Rate 16 FiO2 100.0 % Tidal Volume 550 PEEP 10 Crit Value Called To Dr kelli awan Crit Value Called By Micki mendoza pesticide control inspector Crit Value Read Back Y Blood Gas Notified Time 1025 Sodium 162.0 H* (132-148) mmol/L Potassium (3.6-5.2) mmol/L Chloride 129.0 H (98-107) mmol/L Carbon Dioxide (22-30) mmol/L Anion Gap (10-20) BUN (9-20) mg/dL Creatinine (0.8-1.5) mg/dL Est GFR ( Amer) Est GFR (Non-Af Amer) POC Glucose (mg/dL) 162 H 173 H (65-110) mg/dL Random Glucose (75-110) mg/dL Calcium (8.6-10.4) mg/dl Total Bilirubin (0.2-1.3) mg/dL AST (17-59) U/L ALT (21-72) U/L Alkaline Phosphatase (38-126) U/L Total Protein (6.3-8.3) g/dL Albumin (3.5-5.0) g/dL Globulin (2.2-3.9) gm/dL Albumin/Globulin Ratio (1.0-2.1) Arterial Blood Potassium 3.5 L (3.6-5.2) mmol/L Random Vancomycin ug/mL 12/07/17 12/07/17 12/07/17 Range/Units 06:21 06:21 06:20 WBC 15.5 H (4.8-10.8) K/uL RBC 3.64 L (4.40-5.90) Mil/uL Hgb 10.2 L (12.0-18.0) g/dL Hct 30.7 L (35.0-51.0) % MCV 84.4 (80.0-94.0) fL MCH 28.2 (27.0-31.0) pg MCHC 33.4 (33.0-37.0) g/dL RDW 17.2 H (11.5-14.5) % Plt Count 187 (130-400) K/uL MPV 8.8 (7.2-11.7) fL Neut % (Auto) 85.9 H (50.0-75.0) % Lymph % (Auto) 6.5 L (20.0-40.0) % [place] % (Auto) 6.6 (0.0-10.0) % Eos % (Auto) 0.7 (0.0-4.0) % Baso % (Auto) 0.3 (0.0-2.0) % Neut # (Auto) 13.3 H (1.8-7.0) K/uL Lymph # (Auto) 1.0 (1.0-4.3) K/uL [place] # (Auto) 1.0 H (0.0-0.8) K/uL Eos # (Auto) 0.1 (0.0-0.7) K/uL Baso # (Auto) 0.0 (0.0-0.2) K/uL Neutrophils % (Manual) 83 H (50-75) % Band Neutrophils % 1 (0-2) % Lymphocytes % (Manual) 12 L (20-40) % Monocytes % (Manual) 4 (0-10) % Platelet Estimate Normal (NORMAL) Polychromasia Slight Hypochromasia (manual) Slight Anisocytosis (manual) Slight Target Cells Slight Tear Drop Cells Slight Puncture Site pCO2 (35-45) mm/Hg pO2 (80-100) mm/Hg HCO3 (21-28) mmol/L ABG pH (7.35-7.45) ABG Total CO2 (22-28) mmol/L ABG O2 Saturation (95-98) % ABG Base Excess (-2.0-3.0) mmol/L ABG Hemoglobin (11.7-17.4) g/dL ABG Carboxyhemoglobin (0.5-1.5) % POC ABG HHb (Measured) (0.0-5.0) % ABG Methemoglobin (0.0-3.0) % Oscar Test ABG Potassium (3.6-5.2) mmol/L A-a O2 Difference mm/Hg Respiratory Index Hgb O2 Saturation (95.0-98.0) % Glucose (75-110) mg/dl Lactate (0.7-2.1) mmol/L Vent Mode Mechanical Rate FiO2 % Tidal Volume PEEP Crit Value Called To Crit Value Called By Crit Value Read Back Blood Gas Notified Time Sodium 162 H* (132-148) mmol/L Potassium 3.6 (3.6-5.2) mmol/L Chloride 124 H (98-107) mmol/L Carbon Dioxide 30 (22-30) mmol/L Anion Gap 12 (10-20) BUN 31 H (9-20) mg/dL Creatinine 1.9 H (0.8-1.5) mg/dL Est GFR ( Amer) 42 Est GFR (Non-Af Amer) 35 POC Glucose (mg/dL) (65-110) mg/dL Random Glucose 168 H (75-110) mg/dL Calcium 7.2 L (8.6-10.4) mg/dl Total Bilirubin 0.5 (0.2-1.3) mg/dL AST 30 (17-59) U/L ALT 48 (21-72) U/L Alkaline Phosphatase 51 (38-126) U/L Total Protein 5.8 L (6.3-8.3) g/dL Albumin 2.5 L (3.5-5.0) g/dL Globulin 3.2 (2.2-3.9) gm/dL Albumin/Globulin Ratio 0.8 L (1.0-2.1) Arterial Blood Potassium (3.6-5.2) mmol/L Random Vancomycin 14.67 ug/mL 12/07/17 12/07/17 12/06/17 Range/Units 06:00 05:15 23:43 WBC (4.8-10.8) K/uL RBC (4.40-5.90) Mil/uL Hgb (12.0-18.0) g/dL Hct (35.0-51.0) % MCV (80.0-94.0) fL MCH (27.0-31.0) pg MCHC (33.0-37.0) g/dL RDW (11.5-14.5) % Plt Count (130-400) K/uL MPV (7.2-11.7) fL Neut % (Auto) (50.0-75.0) % Lymph % (Auto) (20.0-40.0) % [place] % (Auto) (0.0-10.0) % Eos % (Auto) (0.0-4.0) % Baso % (Auto) (0.0-2.0) % Neut # (Auto) (1.8-7.0) K/uL Lymph # (Auto) (1.0-4.3) K/uL [place] # (Auto) (0.0-0.8) K/uL Eos # (Auto) (0.0-0.7) K/uL Baso # (Auto) (0.0-0.2) K/uL Neutrophils % (Manual) (50-75) % Band Neutrophils % (0-2) % Lymphocytes % (Manual) (20-40) % Monocytes % (Manual) (0-10) % Platelet Estimate (NORMAL) Polychromasia Hypochromasia (manual) Anisocytosis (manual) Target Cells Tear Drop Cells Puncture Site Rr pCO2 53 H (35-45) mm/Hg pO2 180 H (80-100) mm/Hg HCO3 28.3 H (21-28) mmol/L ABG pH 7.37 (7.35-7.45) ABG Total CO2 32.2 H (22-28) mmol/L ABG O2 Saturation 98.8 H (95-98) % ABG Base Excess 4.4 H (-2.0-3.0) mmol/L ABG Hemoglobin 10.6 L (11.7-17.4) g/dL ABG Carboxyhemoglobin 1.5 (0.5-1.5) % POC ABG HHb (Measured) 1.2 (0.0-5.0) % ABG Methemoglobin 1.2 (0.0-3.0) % Oscar Test Pos ABG Potassium (3.6-5.2) mmol/L A-a O2 Difference 467.0 mm/Hg Respiratory Index 2.6 Hgb O2 Saturation 96.1 (95.0-98.0) % Glucose (75-110) mg/dl Lactate (0.7-2.1) mmol/L Vent Mode Prvc Mechanical Rate 16 FiO2 100.0 % Tidal Volume 500 PEEP 5 Crit Value Called To Crit Value Called By Crit Value Read Back Blood Gas Notified Time Sodium (132-148) mmol/L Potassium (3.6-5.2) mmol/L Chloride (98-107) mmol/L Carbon Dioxide (22-30) mmol/L Anion Gap (10-20) BUN (9-20) mg/dL Creatinine (0.8-1.5) mg/dL Est GFR ( Amer) Est GFR (Non-Af Amer) POC Glucose (mg/dL) 151 H 141 H (65-110) mg/dL Random Glucose (75-110) mg/dL Calcium (8.6-10.4) mg/dl Total Bilirubin (0.2-1.3) mg/dL AST (17-59) U/L ALT (21-72) U/L Alkaline Phosphatase (38-126) U/L Total Protein (6.3-8.3) g/dL Albumin (3.5-5.0) g/dL Globulin (2.2-3.9) gm/dL Albumin/Globulin Ratio (1.0-2.1) Arterial Blood Potassium (3.6-5.2) mmol/L Random Vancomycin ug/mL Laboratory Results - last 24 hr 12/06/17 12/07/17 12/07/17 23:43 05:15 06:00 WBC RBC Hgb Hct MCV MCH MCHC RDW Plt Count MPV Neut % (Auto) Lymph % (Auto) [place] % (Auto) Eos % (Auto) Baso % (Auto) Neut # (Auto) Lymph # (Auto) [place] # (Auto) Eos # (Auto) Baso # (Auto) Neutrophils % (Manual) Band Neutrophils % Lymphocytes % (Manual) Monocytes % (Manual) Platelet Estimate Polychromasia Hypochromasia (manual) Anisocytosis (manual) Target Cells Tear Drop Cells Puncture Site Rr pCO2 53 H pO2 180 H HCO3 28.3 H ABG pH 7.37 ABG Total CO2 32.2 H ABG O2 Saturation 98.8 H ABG Base Excess 4.4 H ABG Hemoglobin 10.6 L ABG Carboxyhemoglobin 1.5 POC ABG HHb (Measured) 1.2 ABG Methemoglobin 1.2 Oscar Test Pos ABG Potassium A-a O2 Difference 467.0 Respiratory Index 2.6 Hgb O2 Saturation 96.1 Glucose Lactate Vent Mode Prvc Mechanical Rate 16 FiO2 100.0 Tidal Volume 500 PEEP 5 Crit Value Called To Crit Value Called By Crit Value Read Back Blood Gas Notified Time Sodium Potassium Chloride Carbon Dioxide Anion Gap BUN Creatinine Est GFR ( Amer) Est GFR (Non-Af Amer) POC Glucose (mg/dL) 141 H 151 H Random Glucose Calcium Total Bilirubin AST ALT Alkaline Phosphatase Total Protein Albumin Globulin Albumin/Globulin Ratio Arterial Blood Potassium Random Vancomycin 12/07/17 12/07/17 12/07/17 06:20 06:21 06:21 WBC 15.5 H RBC 3.64 L Hgb 10.2 L Hct 30.7 L MCV 84.4 MCH 28.2 MCHC 33.4 RDW 17.2 H Plt Count 187 MPV 8.8 Neut % (Auto) 85.9 H Lymph % (Auto) 6.5 L [place] % (Auto) 6.6 Eos % (Auto) 0.7 Baso % (Auto) 0.3 Neut # (Auto) 13.3 H Lymph # (Auto) 1.0 [place] # (Auto) 1.0 H Eos # (Auto) 0.1 Baso # (Auto) 0.0 Neutrophils % (Manual) 83 H Band Neutrophils % 1 Lymphocytes % (Manual) 12 L Monocytes % (Manual) 4 Platelet Estimate Normal Polychromasia Slight Hypochromasia (manual) Slight Anisocytosis (manual) Slight Target Cells Slight Tear Drop Cells Slight Puncture Site pCO2 pO2 HCO3 ABG pH ABG Total CO2 ABG O2 Saturation ABG Base Excess ABG Hemoglobin ABG Carboxyhemoglobin POC ABG HHb (Measured) ABG Methemoglobin Oscar Test ABG Potassium A-a O2 Difference Respiratory Index Hgb O2 Saturation Glucose Lactate Vent Mode Mechanical Rate FiO2 Tidal Volume PEEP Crit Value Called To Crit Value Called By Crit Value Read Back Blood Gas Notified Time Sodium 162 H* Potassium 3.6 Chloride 124 H Carbon Dioxide 30 Anion Gap 12 BUN 31 H Creatinine 1.9 H Est GFR ( Amer) 42 Est GFR (Non-Af Amer) 35 POC Glucose (mg/dL) Random Glucose 168 H Calcium 7.2 L Total Bilirubin 0.5 AST 30 ALT 48 Alkaline Phosphatase 51 Total Protein 5.8 L Albumin 2.5 L Globulin 3.2 Albumin/Globulin Ratio 0.8 L Arterial Blood Potassium Random Vancomycin 14.67 12/07/17 12/07/17 12/07/17 10:18 11:38 17:25 WBC RBC Hgb Hct MCV MCH MCHC RDW Plt Count MPV Neut % (Auto) Lymph % (Auto) [place] % (Auto) Eos % (Auto) Baso % (Auto) Neut # (Auto) Lymph # (Auto) [place] # (Auto) Eos # (Auto) Baso # (Auto) Neutrophils % (Manual) Band Neutrophils % Lymphocytes % (Manual) Monocytes % (Manual) Platelet Estimate Polychromasia Hypochromasia (manual) Anisocytosis (manual) Target Cells Tear Drop Cells Puncture Site Rr pCO2 48 H pO2 70 L HCO3 29.1 H ABG pH 7.42 ABG Total CO2 32.6 H ABG O2 Saturation 96.2 ABG Base Excess 5.5 H ABG Hemoglobin ABG Carboxyhemoglobin POC ABG HHb (Measured) ABG Methemoglobin Oscar Test Pos ABG Potassium 3.5 L A-a O2 Difference 583.0 Respiratory Index 8.3 Hgb O2 Saturation Glucose 181 H Lactate 1.5 Vent Mode Prvc Mechanical Rate 16 FiO2 100.0 Tidal Volume 550 PEEP 10 Crit Value Called To Dr kelli awan Crit Value Called By Micki mendoza pesticide control inspector Crit Value Read Back Y Blood Gas Notified Time 1025 Sodium 162.0 H* Potassium Chloride 129.0 H Carbon Dioxide Anion Gap BUN Creatinine Est GFR ( Amer) Est GFR (Non-Af Amer) POC Glucose (mg/dL) 173 H 162 H Random Glucose Calcium Total Bilirubin AST ALT Alkaline Phosphatase Total Protein Albumin Globulin Albumin/Globulin Ratio Arterial Blood Potassium 3.5 L Random Vancomycin Critical Care Progress Note - Nutrition Nutrition: Nutrition Category Date Time Status Heart Healthy Diet [DIET] Diets 11/30/17 Lunch Active Attending/Attestation - Attestation I have personally seen and examined this patient.: Yes I have fully participated in the care of the patient.: Yes I have reviewed all pertinent clinical information: Yes Notes (Text): 12/07/17 18:31 Patient seen and examined in the intensive care unit. Case discussed with house staff in the morning rounds. remains intubated on ventilatory support on the percent FiO2 with PEEP of 10 good urine output after Lasix 80 mg CVP 10 Monitor renal function Continue present treatment for now
[2017-12-07] MEDS: Vancomycin 1 gm/NS 200 ml 1 GM/200 ML BAG IVPB SCH (11:41)
[2017-12-07] MEDS: metOLazone 5 MG TAB PO SCH (12:47)
--- NOTE | 2017-12-07 21:59 | CP.PCM.PN ---
Subjective - Date & Time of Evaluation Date of Evaluation: 12/06/17 Time of Evaluation: 21:58 - Subjective Subjective: The patient needed urgent triple-lumen catheter insertion. Consent was obtained from the patient's . Procedure was explained to the patient family. Procedure: Under aseptic precautions with a sonogram guidance, the left intrajugular vein was visualized. Triple-lumen catheter was inserted with the any complications. Transvenous pacemaker as well as right arm PICC removed. X-ray verified Objective - Vital Signs/Intake and Output Vital Signs (last 24 hours): Temp Pulse Resp BP Pulse Ox 98.8 F 85 16 85/53 L 100 12/07/17 20:00 12/07/17 21:32 12/07/17 21:32 12/07/17 21:32 12/07/17 21:32 Intake and Output: 12/07/17 12/08/17 18:59 06:59 Intake Total 1947.8 254.7 Output Total 2200 850 Balance -252.2 -595.3 - Medications Medications: Current Medications Acetaminophen (Tylenol 650mg/20.3ml Solution Ud) 650 mg PO Q6 PRN PRN Reason: Temperature Last Admin: 12/07/17 04:02 Dose: 650 mg Albuterol/Ipratropium (Duoneb 3 Mg/0.5 Mg (3 Ml) Ud) 3 ml INH RQ6 [facility] Last Admin: 12/07/17 20:04 Dose: 3 ml Apixaban (Eliquis) 2.5 mg PO BID [facility] Last Admin: 12/07/17 17:29 Dose: 2.5 mg Ascorbic Acid (Vitamin C 500 Mg Tab) 500 mg PO DAILY [facility] Last Admin: 12/07/17 10:20 Dose: 500 mg Famotidine (Pepcid) 20 mg PO DAILY [facility] Last Admin: 12/07/17 10:20 Dose: 20 mg Meropenem 500 mg/ Sodium (Chloride) 100 mls @ 100 mls/hr IVPB Q8 [facility] Last Admin: 12/07/17 13:30 Dose: 100 mls/hr Vancomycin/Sodium Chloride (Vancomycin 1 Gm/Ns 200 Ml) 1 gm in 200 mls @ 133.333 mls/hr IVPB Q24H [facility] Stop: 12/11/17 13:31 Last Admin: 12/07/17 11:41 Dose: 133.333 mls/hr Dopamine HCl/Dextrose (Dopamine 400mg/250ml D5w) 400 mg in 250 mls @ 34.875 mls /hr IV .Q7H11M PRN; Protocol; 10 MCG/KG/MIN PRN Reason: TITRATE PER MD ORDER Last Titration: 12/07/17 18:00 Dose: 10 mcg/kg/min, 34.875 mls/hr Insulin Aspart (Novolog) 0 unit SC Q6H [facility] PRN Reason: Protocol Last Admin: 12/07/17 17:28 Dose: 2 unit Metolazone (Zaroxolyn) 5 mg PO DAILY [facility] Last Admin: 12/07/17 12:47 Dose: 5 mg Multivitamins (Hexavitamin) 1 tab PO DAILY [facility] Last Admin: 12/07/17 10:20 Dose: 1 tab Tamsulosin HCl (Flomax) 0.4 mg PO DAILY [facility] Last Admin: 12/07/17 10:20 Dose: 0.4 mg Zinc Sulfate (Zinc Sulfate 220 Mg Cap) 220 mg PO DAILY [facility] Last Admin: 12/07/17 10:20 Dose: 220 mg - Labs Labs: 12/07/17 06:20 12/07/17 06:21 PT 16.6 SECONDS (9.7-12.2) H 11/26/17 17:31 INR 1.5 11/26/17 17:31 APTT 31 SECONDS (21-34) 11/26/17 17:31
[2017-12-08] MEDS: Acetaminophen 650mg/20.3ml solution UD PO PRN ×2 (00:27→11:38)
[2017-12-08] MEDS: (Novolog) Insulin Aspart, Recombinant 100 u/ml 10 ml vial SC SCH ×4 (00:27→17:35)
[2017-12-08] MEDS: Albuterol-Ipratrop 3 mg / 0.5 (3 ml) UD INH SCH ×4 (01:13→19:46)
[2017-12-08] MEDS: Meropenem 500 MG in Sodium Chloride 0.9% 100 ML IVPB SCH ×3 (05:41→21:33)
[2017-12-08 05:42] LABS: ABG ALLEN TEST POS; ARTERIAL BLOOD GAS HEMOGLOBIN 11.1 g/dL (11.7-17.4); ARTERIAL BLOOD GAS O2 SAT 96.2 % (95-98); ARTERIAL BLOOD GAS PCO2 46 mm/Hg (35-45); ARTERIAL BLOOD GAS PH 7.46 (7.35-7.45); ARTERIAL BLOOD GAS PO2 71 mm/Hg (80-100); ARTERIAL BLOOD GAS TCO2 34.1 mmol/L (22-28)
[2017-12-08 06:44] LABS: BASO # 0.1 K/uL (0.0-0.2); BASO % 0.6 % (0.0-2.0); EOS # 0.3 K/uL (0.0-0.7); EOS % 1.7 % (0.0-4.0); HEMOGLOBIN 10.4 g/dL (12.0-18.0); LYMPH # 1.4 K/uL (1.0-4.3); LYMPH % 8.7 % (20.0-40.0); MEAN CELL VOLUME 83.6 fL (80.0-94.0); MEAN CORPUSCULAR HEMOGLOBIN 27.9 pg (27.0-31.0); MEAN CORPUSCULAR HGB CONC 33.4 g/dL (33.0-37.0); MEAN PLATELET VOLUME 9.3 fL (7.2-11.7); MONO # 0.7 K/uL (0.0-0.8); MONO % 4.2 % (0.0-10.0); NEUT # 13.4 K/uL (1.8-7.0); NEUT % 84.8 % (50.0-75.0); PLATELET COUNT 180 K/uL (130-400); RBC 3.75 Mil/uL (4.40-5.90); RED CELL DISTRIBUTION WIDTH 17.3 % (11.5-14.5); WHITE BLOOD COUNT 15.8 K/uL (4.8-10.8)
[2017-12-08 07:04] LABS: ALB/GLOB RATIO 0.8 (1.0-2.1); ALBUMIN 2.7 g/dL (3.5-5.0); CALCIUM 7.7 mg/dl (8.6-10.4); MAGNESIUM 2.7 mg/dL (1.6-2.3)
[2017-12-08] MEDS: DOPamine 400mg/250ml D5W 400 MG/250 ML BAG IV PRN ×2 (07:33→17:30)
[2017-12-08 08:26] LABS: BANDS 2 % (0-2); LYMPHOCYTE 7 % (20-40); MONOCYTE 1 % (0-10); NEUTROPHIL 90 % (50-75); TOTAL CELLS COUNTED 100
[2017-12-08 08:29] LABS: ANISOCYTOSIS SLIGHT; PLATELET ESTIMATE NORMAL (NORMAL)
[2017-12-08 08:30] LABS: HYPOCHROMIC SLIGHT; TARGET CELLS SLIGHT
[2017-12-08 08:31] LABS: POLYCHROMIC SLIGHT
[2017-12-08] MEDS ORDERED: Potassium Chloride 20 mEq/15 ml LIQ UD PO ONE ×2 (09:16→10:45)
--- NOTE | 2017-12-08 09:38 | RAD ---
HISTORY: sob COMPARISON: 12/06/2017 FINDINGS: The endotracheal tube terminates 3.9 cm proximal to the eri. The nasogastric tube terminates in the stomach. The left IJV line terminates in the SVC. LUNGS: The lungs are hyperinflated and there is peribronchial thickening with chronic changes in both lungs. There is severe pulmonary venous congestion and mild interstitial pulmonary edema. PLEURA: Again seen are pleural effusions, larger on the left with left lower lobe airspace disease. CARDIOVASCULAR: Normal. OSSEOUS STRUCTURES: No significant abnormalities. VISUALIZED UPPER ABDOMEN: Normal. OTHER FINDINGS: None. IMPRESSION: Findings are consistent with congestive heart failure with left lower lobe atelectasis/pneumonia. No significant interval change. COPD.
--- NOTE | 2017-12-08 10:14 | CP.CCUPN ---
<Rick Biswas - Last Filed: 12/08/17 11:38> CCU Subjective - Physician Review Subjective (Free Text): patient seen and examined at bedside intubated still requires fi02 of 100 despite PEEP of 10 and diuresis will continue to diuresis daily and titrate Fi02 down to maintain an sp02 of 92 CTA negative for PE no pleural effusion on xray continue to treat PNA on dopamine for hypotension/giselle - cardio - no need for PPM at this time CCU Objective - Vital Signs / Intake & Output Vital Signs (Last 4 hours): Vital Signs Temp Pulse Resp BP Pulse Ox 12/08/17 08:00 99.6 F 100 H 17 99 12/08/17 07:59 97 H 28 H 89/48 L 99 12/08/17 07:33 88 19 92/52 L 99 12/08/17 07:00 88 23 99 12/08/17 06:59 88 23 92/52 L 99 12/08/17 06:37 75 26 H 116/95 H 97 Intake and Output (Last 8hrs): Intake & Output 12/07/17 12/08/17 12/08/17 22:59 06:59 14:59 Intake Total 1035.1 714.1 319.8 Output Total 2270 1170 170 Balance -1234.9 -455.9 149.8 Weight 204 lb 2 oz Intake: IV 173.4 34.9 Intake, IV Amount 361.7 279.2 169.8 Left Proximal Port 261.7 279.2 69.8 Internal Jugular Right Distal Port 100 100 Oral 50 Tube Feeding 400 400 100 Other 100 Output: Urine 2270 1170 170 Urethral (Singh) 2270 1170 170 Other: # Bowel Movements 0 1 - Physical Exam Head: Positive for: Atraumatic, Normocephalic Pupils: Positive for: PERRL Mouth: Positive for: Moist Mucous Membranes Respiratory/Chest: Positive for: Other (intubated) Abdomen: Positive for: Normal Bowel Sounds. Negative for: Tenderness, Distention, Peritoneal Signs Psychiatric: Positive for: Alert, Oriented x 3 - Medications Active Medications: Active Medications Generic Name Dose Route Start Last Admin Trade Name Freq PRN Reason Stop Dose Admin Acetaminophen 650 mg 12/06/17 09:30 12/08/17 00:27 Tylenol 650mg/20.3ml Solution Ud PO 650 mg Q6 PRN Administration Temperature Albuterol/Ipratropium 3 ml 12/03/17 14:00 12/08/17 07:55 Duoneb 3 Mg/0.5 Mg (3 Ml) Ud INH 3 ml RQ6 ABHIJEET Administration Apixaban 2.5 mg 12/04/17 10:00 12/07/17 17:29 Eliquis PO 2.5 mg BID ABHIJEET Administration Ascorbic Acid 500 mg 12/05/17 10:00 12/07/17 10:20 Vitamin C 500 Mg Tab PO 500 mg DAILY ABHIJEET Administration Famotidine 20 mg 11/27/17 10:00 12/07/17 10:20 Pepcid PO 20 mg DAILY ABHIJEET Administration Meropenem 500 mg/ Sodium 100 mls @ 100 mls/hr 12/06/17 14:00 12/08/17 05:41 Chloride IVPB 100 mls/hr Q8 ABHIJEET Administration Vancomycin/Sodium Chloride 1 gm in 200 mls @ 133.333 mls/hr 12/06/17 12:15 11:41 Vancomycin 1 Gm/Ns 200 Ml IVPB 12/11/17 13:31 133.333 mls/hr Q24H ABHIJEET Administration Dopamine HCl/Dextrose 400 mg in 250 mls @ 34.875 mls/hr 12/06/17 19:16 07:33 Dopamine 400mg/250ml D5w IV 10 mcg/kg/min .Q7H11M PRN 34.875 mls/hr TITRATE PER MD ORDER Administration Protocol 10 MCG/KG/MIN Insulin Aspart 0 unit 12/02/17 18:00 12/08/17 06:03 Novolog SC 2 unit Q6H ABHIJEET Administration Protocol Metolazone 5 mg 12/06/17 19:48 12/07/17 12:47 Zaroxolyn PO 5 mg DAILY ABHIJEET Administration Multivitamins 1 tab 12/07/17 10:00 12/07/17 10:20 Hexavitamin PO 1 tab DAILY ABHIJEET Administration Tamsulosin HCl 0.4 mg 11/27/17 10:00 12/07/17 10:20 Flomax PO 0.4 mg DAILY ABHIJEET Administration Zinc Sulfate 220 mg 12/02/17 10:00 12/07/17 10:20 Zinc Sulfate 220 Mg Cap PO 220 mg DAILY ABHIJEET Administration - Patient Studies Lab Studies: Microbiology Studies 12/06/17 09:19 S.aureus & Coag-Neg Staph PNA FISH - Preliminary Blood-Venous Blood Culture - Preliminary Gram Positive Cocci Gram Stain - Preliminary 12/06/17 09:19 Urine Culture - Final Urine,Catheterized No Growth (<1,000 CFU/ML) 12/06/17 09:19 Gram Stain - Final Trachasp Sputum Culture - Preliminary Gram Positive Cocci Lab Studies 12/08/17 12/08/17 12/08/17 Range/Units 06:40 06:29 05:59 WBC 15.8 H (4.8-10.8) K/uL RBC 3.75 L (4.40-5.90) Mil/uL Hgb 10.4 L (12.0-18.0) g/dL Hct 31.3 L (35.0-51.0) % MCV 83.6 (80.0-94.0) fL MCH 27.9 (27.0-31.0) pg MCHC 33.4 (33.0-37.0) g/dL RDW 17.3 H (11.5-14.5) % Plt Count 180 (130-400) K/uL MPV 9.3 (7.2-11.7) fL Neut % (Auto) 84.8 H (50.0-75.0) % Lymph % (Auto) 8.7 L (20.0-40.0) % George % (Auto) 4.2 (0.0-10.0) % Eos % (Auto) 1.7 (0.0-4.0) % Baso % (Auto) 0.6 (0.0-2.0) % Neut # (Auto) 13.4 H (1.8-7.0) K/uL Lymph # (Auto) 1.4 (1.0-4.3) K/uL George # (Auto) 0.7 (0.0-0.8) K/uL Eos # (Auto) 0.3 (0.0-0.7) K/uL Baso # (Auto) 0.1 (0.0-0.2) K/uL Neutrophils % (Manual) 90 H (50-75) % Band Neutrophils % 2 (0-2) % Lymphocytes % (Manual) 7 L (20-40) % Monocytes % (Manual) 1 (0-10) % Platelet Estimate Normal (NORMAL) Polychromasia Slight Hypochromasia (manual) Slight Anisocytosis (manual) Slight Target Cells Slight Puncture Site pCO2 (35-45) mm/Hg pO2 (80-100) mm/Hg HCO3 (21-28) mmol/L ABG pH (7.35-7.45) ABG Total CO2 (22-28) mmol/L ABG O2 Saturation (95-98) % ABG Base Excess (-2.0-3.0) mmol/L ABG Hemoglobin (11.7-17.4) g/dL ABG Carboxyhemoglobin (0.5-1.5) % POC ABG HHb (Measured) (0.0-5.0) % ABG Methemoglobin (0.0-3.0) % Oscar Test ABG Potassium (3.6-5.2) mmol/L A-a O2 Difference mm/Hg Respiratory Index Hgb O2 Saturation (95.0-98.0) % Sodium 160 H* (132-148) mmol/l Chloride 120 H (98-107) mmol/L Glucose (75-110) mg/dl Lactate (0.7-2.1) mmol/L Vent Mode Mechanical Rate FiO2 % Tidal Volume PEEP Crit Value Called To Crit Value Called By Crit Value Read Back Blood Gas Notified Time Potassium 3.3 L (3.6-5.2) mmol/L Carbon Dioxide 33 H (22-30) mmol/L Anion Gap 10 (10-20) BUN 37 H (9-20) mg/dL Creatinine 1.8 H (0.8-1.5) mg/dL Est GFR ( Amer) 45 Est GFR (Non-Af Amer) 37 POC Glucose (mg/dL) 154 H (65-110) mg/dL Random Glucose 168 H (75-110) mg/dL Calcium 7.7 L (8.6-10.4) mg/dl Phosphorus 2.9 (2.5-4.5) mg/dL Magnesium 2.7 H (1.6-2.3) mg/dL Total Bilirubin 0.4 (0.2-1.3) mg/dL AST 22 (17-59) U/L ALT 36 (21-72) U/L Alkaline Phosphatase 63 (38-126) U/L Total Protein 6.0 L (6.3-8.3) g/dL Albumin 2.7 L (3.5-5.0) g/dL Globulin 3.3 (2.2-3.9) gm/dL Albumin/Globulin Ratio 0.8 L (1.0-2.1) Arterial Blood Potassium (3.6-5.2) mmol/L 12/08/17 12/08/17 12/07/17 Range/Units 05:15 00:01 17:25 WBC (4.8-10.8) K/uL RBC (4.40-5.90) Mil/uL Hgb (12.0-18.0) g/dL Hct (35.0-51.0) % MCV (80.0-94.0) fL MCH (27.0-31.0) pg MCHC (33.0-37.0) g/dL RDW (11.5-14.5) % Plt Count (130-400) K/uL MPV (7.2-11.7) fL Neut % (Auto) (50.0-75.0) % Lymph % (Auto) (20.0-40.0) % George % (Auto) (0.0-10.0) % Eos % (Auto) (0.0-4.0) % Baso % (Auto) (0.0-2.0) % Neut # (Auto) (1.8-7.0) K/uL Lymph # (Auto) (1.0-4.3) K/uL George # (Auto) (0.0-0.8) K/uL Eos # (Auto) (0.0-0.7) K/uL Baso # (Auto) (0.0-0.2) K/uL Neutrophils % (Manual) (50-75) % Band Neutrophils % (0-2) % Lymphocytes % (Manual) (20-40) % Monocytes % (Manual) (0-10) % Platelet Estimate (NORMAL) Polychromasia Hypochromasia (manual) Anisocytosis (manual) Target Cells Puncture Site Rr pCO2 46 H (35-45) mm/Hg pO2 71 L (80-100) mm/Hg HCO3 31.0 H (21-28) mmol/L ABG pH 7.46 H (7.35-7.45) ABG Total CO2 34.1 H (22-28) mmol/L ABG O2 Saturation 96.2 (95-98) % ABG Base Excess 7.9 H (-2.0-3.0) mmol/L ABG Hemoglobin 11.1 L (11.7-17.4) g/dL ABG Carboxyhemoglobin 1.5 (0.5-1.5) % POC ABG HHb (Measured) 3.7 (0.0-5.0) % ABG Methemoglobin 0.9 (0.0-3.0) % Oscar Test Pos ABG Potassium (3.6-5.2) mmol/L A-a O2 Difference 442.0 mm/Hg Respiratory Index 6.2 Hgb O2 Saturation 94.0 L (95.0-98.0) % Sodium (132-148) mmol/l Chloride (98-107) mmol/L Glucose (75-110) mg/dl Lactate (0.7-2.1) mmol/L Vent Mode Prvc Mechanical Rate 16 FiO2 80.0 % Tidal Volume 550 PEEP 10 Crit Value Called To Crit Value Called By Crit Value Read Back Blood Gas Notified Time Potassium (3.6-5.2) mmol/L Carbon Dioxide (22-30) mmol/L Anion Gap (10-20) BUN (9-20) mg/dL Creatinine (0.8-1.5) mg/dL Est GFR ( Amer) Est GFR (Non-Af Amer) POC Glucose (mg/dL) 137 H 162 H (65-110) mg/dL Random Glucose (75-110) mg/dL Calcium (8.6-10.4) mg/dl Phosphorus (2.5-4.5) mg/dL Magnesium (1.6-2.3) mg/dL Total Bilirubin (0.2-1.3) mg/dL AST (17-59) U/L ALT (21-72) U/L Alkaline Phosphatase (38-126) U/L Total Protein (6.3-8.3) g/dL Albumin (3.5-5.0) g/dL Globulin (2.2-3.9) gm/dL Albumin/Globulin Ratio (1.0-2.1) Arterial Blood Potassium (3.6-5.2) mmol/L 12/07/17 12/07/17 Range/Units 11:38 10:18 WBC (4.8-10.8) K/uL RBC (4.40-5.90) Mil/uL Hgb (12.0-18.0) g/dL Hct (35.0-51.0) % MCV (80.0-94.0) fL MCH (27.0-31.0) pg MCHC (33.0-37.0) g/dL RDW (11.5-14.5) % Plt Count (130-400) K/uL MPV (7.2-11.7) fL Neut % (Auto) (50.0-75.0) % Lymph % (Auto) (20.0-40.0) % George % (Auto) (0.0-10.0) % Eos % (Auto) (0.0-4.0) % Baso % (Auto) (0.0-2.0) % Neut # (Auto) (1.8-7.0) K/uL Lymph # (Auto) (1.0-4.3) K/uL George # (Auto) (0.0-0.8) K/uL Eos # (Auto) (0.0-0.7) K/uL Baso # (Auto) (0.0-0.2) K/uL Neutrophils % (Manual) (50-75) % Band Neutrophils % (0-2) % Lymphocytes % (Manual) (20-40) % Monocytes % (Manual) (0-10) % Platelet Estimate (NORMAL) Polychromasia Hypochromasia (manual) Anisocytosis (manual) Target Cells Puncture Site Rr pCO2 48 H (35-45) mm/Hg pO2 70 L (80-100) mm/Hg HCO3 29.1 H (21-28) mmol/L ABG pH 7.42 (7.35-7.45) ABG Total CO2 32.6 H (22-28) mmol/L ABG O2 Saturation 96.2 (95-98) % ABG Base Excess 5.5 H (-2.0-3.0) mmol/L ABG Hemoglobin (11.7-17.4) g/dL ABG Carboxyhemoglobin (0.5-1.5) % POC ABG HHb (Measured) (0.0-5.0) % ABG Methemoglobin (0.0-3.0) % Oscar Test Pos ABG Potassium 3.5 L (3.6-5.2) mmol/L A-a O2 Difference 583.0 mm/Hg Respiratory Index 8.3 Hgb O2 Saturation (95.0-98.0) % Sodium 162.0 H* (132-148) mmol/l Chloride 129.0 H (98-107) mmol/L Glucose 181 H (75-110) mg/dl Lactate 1.5 (0.7-2.1) mmol/L Vent Mode Prvc Mechanical Rate 16 FiO2 100.0 % Tidal Volume 550 PEEP 10 Crit Value Called To Dr kelli awan Crit Value Called By Micki mendoza flexboard operator Crit Value Read Back Y Blood Gas Notified Time 1025 Potassium (3.6-5.2) mmol/L Carbon Dioxide (22-30) mmol/L Anion Gap (10-20) BUN (9-20) mg/dL Creatinine (0.8-1.5) mg/dL Est GFR ( Amer) Est GFR (Non-Af Amer) POC Glucose (mg/dL) 173 H (65-110) mg/dL Random Glucose (75-110) mg/dL Calcium (8.6-10.4) mg/dl Phosphorus (2.5-4.5) mg/dL Magnesium (1.6-2.3) mg/dL Total Bilirubin (0.2-1.3) mg/dL AST (17-59) U/L ALT (21-72) U/L Alkaline Phosphatase (38-126) U/L Total Protein (6.3-8.3) g/dL Albumin (3.5-5.0) g/dL Globulin (2.2-3.9) gm/dL Albumin/Globulin Ratio (1.0-2.1) Arterial Blood Potassium 3.5 L (3.6-5.2) mmol/L Laboratory Results - last 24 hr 12/07/17 12/07/17 12/07/17 10:18 11:38 17:25 WBC RBC Hgb Hct MCV MCH MCHC RDW Plt Count MPV Neut % (Auto) Lymph % (Auto) George % (Auto) Eos % (Auto) Baso % (Auto) Neut # (Auto) Lymph # (Auto) George # (Auto) Eos # (Auto) Baso # (Auto) Neutrophils % (Manual) Band Neutrophils % Lymphocytes % (Manual) Monocytes % (Manual) Platelet Estimate Polychromasia Hypochromasia (manual) Anisocytosis (manual) Target Cells Puncture Site Rr pCO2 48 H pO2 70 L HCO3 29.1 H ABG pH 7.42 ABG Total CO2 32.6 H ABG O2 Saturation 96.2 ABG Base Excess 5.5 H ABG Hemoglobin ABG Carboxyhemoglobin POC ABG HHb (Measured) ABG Methemoglobin Oscar Test Pos ABG Potassium 3.5 L A-a O2 Difference 583.0 Respiratory Index 8.3 Hgb O2 Saturation Sodium 162.0 H* Chloride 129.0 H Glucose 181 H Lactate 1.5 Vent Mode Prvc Mechanical Rate 16 FiO2 100.0 Tidal Volume 550 PEEP 10 Crit Value Called To Dr kelli awan Crit Value Called By Micki mendoza flexboard operator Crit Value Read Back Y Blood Gas Notified Time 1025 Potassium Carbon Dioxide Anion Gap BUN Creatinine Est GFR ( Amer) Est GFR (Non-Af Amer) POC Glucose (mg/dL) 173 H 162 H Random Glucose Calcium Phosphorus Magnesium Total Bilirubin AST ALT Alkaline Phosphatase Total Protein Albumin Globulin Albumin/Globulin Ratio Arterial Blood Potassium 3.5 L 12/08/17 12/08/17 12/08/17 00:01 05:15 05:59 WBC RBC Hgb Hct MCV MCH MCHC RDW Plt Count MPV Neut % (Auto) Lymph % (Auto) George % (Auto) Eos % (Auto) Baso % (Auto) Neut # (Auto) Lymph # (Auto) George # (Auto) Eos # (Auto) Baso # (Auto) Neutrophils % (Manual) Band Neutrophils % Lymphocytes % (Manual) Monocytes % (Manual) Platelet Estimate Polychromasia Hypochromasia (manual) Anisocytosis (manual) Target Cells Puncture Site Rr pCO2 46 H pO2 71 L HCO3 31.0 H ABG pH 7.46 H ABG Total CO2 34.1 H ABG O2 Saturation 96.2 ABG Base Excess 7.9 H ABG Hemoglobin 11.1 L ABG Carboxyhemoglobin 1.5 POC ABG HHb (Measured) 3.7 ABG Methemoglobin 0.9 Oscar Test Pos ABG Potassium A-a O2 Difference 442.0 Respiratory Index 6.2 Hgb O2 Saturation 94.0 L Sodium Chloride Glucose Lactate Vent Mode Prvc Mechanical Rate 16 FiO2 80.0 Tidal Volume 550 PEEP 10 Crit Value Called To Crit Value Called By Crit Value Read Back Blood Gas Notified Time Potassium Carbon Dioxide Anion Gap BUN Creatinine Est GFR ( Amer) Est GFR (Non-Af Amer) POC Glucose (mg/dL) 137 H 154 H Random Glucose Calcium Phosphorus Magnesium Total Bilirubin AST ALT Alkaline Phosphatase Total Protein Albumin Globulin Albumin/Globulin Ratio Arterial Blood Potassium 12/08/17 12/08/17 06:29 06:40 WBC 15.8 H RBC 3.75 L Hgb 10.4 L Hct 31.3 L MCV 83.6 MCH 27.9 MCHC 33.4 RDW 17.3 H Plt Count 180 MPV 9.3 Neut % (Auto) 84.8 H Lymph % (Auto) 8.7 L George % (Auto) 4.2 Eos % (Auto) 1.7 Baso % (Auto) 0.6 Neut # (Auto) 13.4 H Lymph # (Auto) 1.4 George # (Auto) 0.7 Eos # (Auto) 0.3 Baso # (Auto) 0.1 Neutrophils % (Manual) 90 H Band Neutrophils % 2 Lymphocytes % (Manual) 7 L Monocytes % (Manual) 1 Platelet Estimate Normal Polychromasia Slight Hypochromasia (manual) Slight Anisocytosis (manual) Slight Target Cells Slight Puncture Site pCO2 pO2 HCO3 ABG pH ABG Total CO2 ABG O2 Saturation ABG Base Excess ABG Hemoglobin ABG Carboxyhemoglobin POC ABG HHb (Measured) ABG Methemoglobin Oscar Test ABG Potassium A-a O2 Difference Respiratory Index Hgb O2 Saturation Sodium 160 H* Chloride 120 H Glucose Lactate Vent Mode Mechanical Rate FiO2 Tidal Volume PEEP Crit Value Called To Crit Value Called By Crit Value Read Back Blood Gas Notified Time Potassium 3.3 L Carbon Dioxide 33 H Anion Gap 10 BUN 37 H Creatinine 1.8 H Est GFR ( Amer) 45 Est GFR (Non-Af Amer) 37 POC Glucose (mg/dL) Random Glucose 168 H Calcium 7.7 L Phosphorus 2.9 Magnesium 2.7 H Total Bilirubin 0.4 AST 22 ALT 36 Alkaline Phosphatase 63 Total Protein 6.0 L Albumin 2.7 L Globulin 3.3 Albumin/Globulin Ratio 0.8 L Arterial Blood Potassium Fingerstick Blood Sugar Results: 154 Critical Care Progress Note - Nutrition Nutrition: Nutrition Category Date Time Status Heart Healthy Diet [DIET] Diets 11/30/17 Lunch Active Assessment/Plan - Assessment and Plan (Free Text) Assessment: 72M giselle, hypotensive on pressors, Pneumonia, respiratory failure Plan: Psych: no acute issues Neuro: prior CVA Cardio: HTN (Bruno) continue CVP monitoring Pulm: Asthma, COPD, hypoxia intubated - decrease FIO2 60%, RR 16, Tv 500, PEEP 10 septic shock possible 2/2 pneumonia vanco 1gm/meropenem 1gm duoneb CT angio was negative for PE GI: no acute issues Renal/Uro: BPH continue flomax 0.4mg QD (Horton) Endo: no acute issues Electrolytes: hypernatremia, hypokalemia metolazone 5mg PO QD 200cc free water Q8hr kdur ID: Septic shock, MRSA + sputum culture (Mangia) vanco 1gm meropenem dopamine Skin: pressure ulcer Vitamin C zinc sulfate PPx: pepcid 20mg QD d/c lovenox 80mg Q12hr due to bleeding at IV site eloquist 2.5mg po BID <Justino Awan S - Last Filed: 12/08/17 16:09> CCU Objective - Vital Signs / Intake & Output Vital Signs (Last 4 hours): Vital Signs Temp Pulse Resp BP Pulse Ox 12/08/17 15:07 89 20 98/56 L 94 L 12/08/17 14:00 85 17 95 12/08/17 13:59 86 17 93/48 L 95 12/08/17 13:00 87 17 95 12/08/17 12:58 87 16 93/48 L 96 12/08/17 12:38 99.8 F H Intake and Output (Last 8hrs): Intake & Output 12/08/17 12/08/17 12/08/17 06:59 14:59 22:59 Intake Total 714.1 1129.2 114.9 Output Total 1170 655 50 Balance -455.9 474.2 64.9 Weight 204 lb 2 oz Intake: IV 34.9 Intake, IV Amount 279.2 479.2 34.9 Left Proximal Port 279.2 279.2 34.9 Internal Jugular Right Distal Port 200 Oral 250 30 Tube Feeding 400 400 50 Output: Urine 1170 655 50 Urethral (Singh) 1170 655 50 Other: # Bowel Movements 0 1 - Medications Active Medications: Active Medications Generic Name Dose Route Start Last Admin Trade Name Freq PRN Reason Stop Dose Admin Acetaminophen 650 mg 12/06/17 09:30 12/08/17 11:38 Tylenol 650mg/20.3ml Solution Ud PO 650 mg Q6 PRN Administration Temperature Albuterol/Ipratropium 3 ml 12/03/17 14:00 12/08/17 14:05 Duoneb 3 Mg/0.5 Mg (3 Ml) Ud INH 3 ml RQ6 ABHIJEET Administration Apixaban 2.5 mg 12/04/17 10:00 12/08/17 10:45 Eliquis PO 2.5 mg BID ABHIJEET Administration Ascorbic Acid 500 mg 12/05/17 10:00 12/08/17 10:46 Vitamin C 500 Mg Tab PO 500 mg DAILY ABHIJEET Administration Famotidine 20 mg 11/27/17 10:00 12/08/17 10:48 Pepcid PO 20 mg DAILY ABHIJEET Administration Meropenem 500 mg/ Sodium 100 mls @ 100 mls/hr 12/06/17 14:00 12/08/17 14:03 Chloride IVPB 100 mls/hr Q8 ABHIJEET Administration Vancomycin/Sodium Chloride 1 gm in 200 mls @ 133.333 mls/hr 12/06/17 12:15 11:46 Vancomycin 1 Gm/Ns 200 Ml IVPB 12/11/17 13:31 133.333 mls/hr Q24H ABHIJEET Administration Dopamine HCl/Dextrose 400 mg in 250 mls @ 34.875 mls/hr 12/06/17 19:16 07:33 Dopamine 400mg/250ml D5w IV 10 mcg/kg/min .Q7H11M PRN 34.875 mls/hr TITRATE PER MD ORDER Administration Protocol 10 MCG/KG/MIN Insulin Aspart 0 unit 12/02/17 18:00 12/08/17 11:39 Novolog SC 2 unit Q6H ABHIJEET Administration Protocol Metolazone 5 mg 12/06/17 19:48 12/08/17 10:46 Zaroxolyn PO 5 mg DAILY ABHIJEET Administration Multivitamins 1 tab 12/07/17 10:00 12/08/17 10:45 Hexavitamin PO 1 tab DAILY ABHIJEET Administration Tamsulosin HCl 0.4 mg 11/27/17 10:00 12/08/17 10:45 Flomax PO 0.4 mg DAILY ABHIJEET Administration Zinc Sulfate 220 mg 12/02/17 10:00 12/08/17 10:46 Zinc Sulfate 220 Mg Cap PO 220 mg DAILY ABHIJEET Administration - Patient Studies Lab Studies: Microbiology Studies 12/06/17 09:19 S.aureus & Coag-Neg Staph PNA FISH - Final Blood-Venous Blood Culture - Preliminary Staphylococcus Aureus Gram Stain - Final Lab Studies 12/08/17 12/08/17 12/08/17 Range/Units 11:29 06:40 06:29 WBC 15.8 H (4.8-10.8) K/uL RBC 3.75 L (4.40-5.90) Mil/uL Hgb 10.4 L (12.0-18.0) g/dL Hct 31.3 L (35.0-51.0) % MCV 83.6 (80.0-94.0) fL MCH 27.9 (27.0-31.0) pg MCHC 33.4 (33.0-37.0) g/dL RDW 17.3 H (11.5-14.5) % Plt Count 180 (130-400) K/uL MPV 9.3 (7.2-11.7) fL Neut % (Auto) 84.8 H (50.0-75.0) % Lymph % (Auto) 8.7 L (20.0-40.0) % George % (Auto) 4.2 (0.0-10.0) % Eos % (Auto) 1.7 (0.0-4.0) % Baso % (Auto) 0.6 (0.0-2.0) % Neut # (Auto) 13.4 H (1.8-7.0) K/uL Lymph # (Auto) 1.4 (1.0-4.3) K/uL George # (Auto) 0.7 (0.0-0.8) K/uL Eos # (Auto) 0.3 (0.0-0.7) K/uL Baso # (Auto) 0.1 (0.0-0.2) K/uL Neutrophils % (Manual) 90 H (50-75) % Band Neutrophils % 2 (0-2) % Lymphocytes % (Manual) 7 L (20-40) % Monocytes % (Manual) 1 (0-10) % Platelet Estimate Normal (NORMAL) Polychromasia Slight Hypochromasia (manual) Slight Anisocytosis (manual) Slight Target Cells Slight Puncture Site pCO2 (35-45) mm/Hg pO2 (80-100) mm/Hg HCO3 (21-28) mmol/L ABG pH (7.35-7.45) ABG Total CO2 (22-28) mmol/L ABG O2 Saturation (95-98) % ABG Base Excess (-2.0-3.0) mmol/L ABG Hemoglobin (11.7-17.4) g/dL ABG Carboxyhemoglobin (0.5-1.5) % POC ABG HHb (Measured) (0.0-5.0) % ABG Methemoglobin (0.0-3.0) % Oscar Test A-a O2 Difference mm/Hg Respiratory Index Hgb O2 Saturation (95.0-98.0) % Vent Mode Mechanical Rate FiO2 % Tidal Volume PEEP Sodium 160 H* (132-148) mmol/L Potassium 3.3 L (3.6-5.2) mmol/L Chloride 120 H (98-107) mmol/L Carbon Dioxide 33 H (22-30) mmol/L Anion Gap 10 (10-20) BUN 37 H (9-20) mg/dL Creatinine 1.8 H (0.8-1.5) mg/dL Est GFR ( Amer) 45 Est GFR (Non-Af Amer) 37 POC Glucose (mg/dL) 174 H (65-110) mg/dL Random Glucose 168 H (75-110) mg/dL Calcium 7.7 L (8.6-10.4) mg/dl Phosphorus 2.9 (2.5-4.5) mg/dL Magnesium 2.7 H (1.6-2.3) mg/dL Total Bilirubin 0.4 (0.2-1.3) mg/dL AST 22 (17-59) U/L ALT 36 (21-72) U/L Alkaline Phosphatase 63 (38-126) U/L Total Protein 6.0 L (6.3-8.3) g/dL Albumin 2.7 L (3.5-5.0) g/dL Globulin 3.3 (2.2-3.9) gm/dL Albumin/Globulin Ratio 0.8 L (1.0-2.1) 12/08/17 12/08/17 12/08/17 Range/Units 05:59 05:15 00:01 WBC (4.8-10.8) K/uL RBC (4.40-5.90) Mil/uL Hgb (12.0-18.0) g/dL Hct (35.0-51.0) % MCV (80.0-94.0) fL MCH (27.0-31.0) pg MCHC (33.0-37.0) g/dL RDW (11.5-14.5) % Plt Count (130-400) K/uL MPV (7.2-11.7) fL Neut % (Auto) (50.0-75.0) % Lymph % (Auto) (20.0-40.0) % George % (Auto) (0.0-10.0) % Eos % (Auto) (0.0-4.0) % Baso % (Auto) (0.0-2.0) % Neut # (Auto) (1.8-7.0) K/uL Lymph # (Auto) (1.0-4.3) K/uL George # (Auto) (0.0-0.8) K/uL Eos # (Auto) (0.0-0.7) K/uL Baso # (Auto) (0.0-0.2) K/uL Neutrophils % (Manual) (50-75) % Band Neutrophils % (0-2) % Lymphocytes % (Manual) (20-40) % Monocytes % (Manual) (0-10) % Platelet Estimate (NORMAL) Polychromasia Hypochromasia (manual) Anisocytosis (manual) Target Cells Puncture Site Rr pCO2 46 H (35-45) mm/Hg pO2 71 L (80-100) mm/Hg HCO3 31.0 H (21-28) mmol/L ABG pH 7.46 H (7.35-7.45) ABG Total CO2 34.1 H (22-28) mmol/L ABG O2 Saturation 96.2 (95-98) % ABG Base Excess 7.9 H (-2.0-3.0) mmol/L ABG Hemoglobin 11.1 L (11.7-17.4) g/dL ABG Carboxyhemoglobin 1.5 (0.5-1.5) % POC ABG HHb (Measured) 3.7 (0.0-5.0) % ABG Methemoglobin 0.9 (0.0-3.0) % Oscar Test Pos A-a O2 Difference 442.0 mm/Hg Respiratory Index 6.2 Hgb O2 Saturation 94.0 L (95.0-98.0) % Vent Mode Prvc Mechanical Rate 16 FiO2 80.0 % Tidal Volume 550 PEEP 10 Sodium (132-148) mmol/L Potassium (3.6-5.2) mmol/L Chloride (98-107) mmol/L Carbon Dioxide (22-30) mmol/L Anion Gap (10-20) BUN (9-20) mg/dL Creatinine (0.8-1.5) mg/dL Est GFR ( Amer) Est GFR (Non-Af Amer) POC Glucose (mg/dL) 154 H 137 H (65-110) mg/dL Random Glucose (75-110) mg/dL Calcium (8.6-10.4) mg/dl Phosphorus (2.5-4.5) mg/dL Magnesium (1.6-2.3) mg/dL Total Bilirubin (0.2-1.3) mg/dL AST (17-59) U/L ALT (21-72) U/L Alkaline Phosphatase (38-126) U/L Total Protein (6.3-8.3) g/dL Albumin (3.5-5.0) g/dL Globulin (2.2-3.9) gm/dL Albumin/Globulin Ratio (1.0-2.1) 12/07/17 Range/Units 17:25 WBC (4.8-10.8) K/uL RBC (4.40-5.90) Mil/uL Hgb (12.0-18.0) g/dL Hct (35.0-51.0) % MCV (80.0-94.0) fL MCH (27.0-31.0) pg MCHC (33.0-37.0) g/dL RDW (11.5-14.5) % Plt Count (130-400) K/uL MPV (7.2-11.7) fL Neut % (Auto) (50.0-75.0) % Lymph % (Auto) (20.0-40.0) % George % (Auto) (0.0-10.0) % Eos % (Auto) (0.0-4.0) % Baso % (Auto) (0.0-2.0) % Neut # (Auto) (1.8-7.0) K/uL Lymph # (Auto) (1.0-4.3) K/uL George # (Auto) (0.0-0.8) K/uL Eos # (Auto) (0.0-0.7) K/uL Baso # (Auto) (0.0-0.2) K/uL Neutrophils % (Manual) (50-75) % Band Neutrophils % (0-2) % Lymphocytes % (Manual) (20-40) % Monocytes % (Manual) (0-10) % Platelet Estimate (NORMAL) Polychromasia Hypochromasia (manual) Anisocytosis (manual) Target Cells Puncture Site pCO2 (35-45) mm/Hg pO2 (80-100) mm/Hg HCO3 (21-28) mmol/L ABG pH (7.35-7.45) ABG Total CO2 (22-28) mmol/L ABG O2 Saturation (95-98) % ABG Base Excess (-2.0-3.0) mmol/L ABG Hemoglobin (11.7-17.4) g/dL ABG Carboxyhemoglobin (0.5-1.5) % POC ABG HHb (Measured) (0.0-5.0) % ABG Methemoglobin (0.0-3.0) % Oscar Test A-a O2 Difference mm/Hg Respiratory Index Hgb O2 Saturation (95.0-98.0) % Vent Mode Mechanical Rate FiO2 % Tidal Volume PEEP Sodium (132-148) mmol/L Potassium (3.6-5.2) mmol/L Chloride (98-107) mmol/L Carbon Dioxide (22-30) mmol/L Anion Gap (10-20) BUN (9-20) mg/dL Creatinine (0.8-1.5) mg/dL Est GFR ( Amer) Est GFR (Non-Af Amer) POC Glucose (mg/dL) 162 H (65-110) mg/dL Random Glucose (75-110) mg/dL Calcium (8.6-10.4) mg/dl Phosphorus (2.5-4.5) mg/dL Magnesium (1.6-2.3) mg/dL Total Bilirubin (0.2-1.3) mg/dL AST (17-59) U/L ALT (21-72) U/L Alkaline Phosphatase (38-126) U/L Total Protein (6.3-8.3) g/dL Albumin (3.5-5.0) g/dL Globulin (2.2-3.9) gm/dL Albumin/Globulin Ratio (1.0-2.1) Laboratory Results - last 24 hr 12/07/17 12/08/17 12/08/17 17:25 00:01 05:15 WBC RBC Hgb Hct MCV MCH MCHC RDW Plt Count MPV Neut % (Auto) Lymph % (Auto) George % (Auto) Eos % (Auto) Baso % (Auto) Neut # (Auto) Lymph # (Auto) George # (Auto) Eos # (Auto) Baso # (Auto) Neutrophils % (Manual) Band Neutrophils % Lymphocytes % (Manual) Monocytes % (Manual) Platelet Estimate Polychromasia Hypochromasia (manual) Anisocytosis (manual) Target Cells Puncture Site Rr pCO2 46 H pO2 71 L HCO3 31.0 H ABG pH 7.46 H ABG Total CO2 34.1 H ABG O2 Saturation 96.2 ABG Base Excess 7.9 H ABG Hemoglobin 11.1 L ABG Carboxyhemoglobin 1.5 POC ABG HHb (Measured) 3.7 ABG Methemoglobin 0.9 Oscar Test Pos A-a O2 Difference 442.0 Respiratory Index 6.2 Hgb O2 Saturation 94.0 L Vent Mode Prvc Mechanical Rate 16 FiO2 80.0 Tidal Volume 550 PEEP 10 Sodium Potassium Chloride Carbon Dioxide Anion Gap BUN Creatinine Est GFR ( Amer) Est GFR (Non-Af Amer) POC Glucose (mg/dL) 162 H 137 H Random Glucose Calcium Phosphorus Magnesium Total Bilirubin AST ALT Alkaline Phosphatase Total Protein Albumin Globulin Albumin/Globulin Ratio 12/08/17 12/08/17 12/08/17 05:59 06:29 06:40 WBC 15.8 H RBC 3.75 L Hgb 10.4 L Hct 31.3 L MCV 83.6 MCH 27.9 MCHC 33.4 RDW 17.3 H Plt Count 180 MPV 9.3 Neut % (Auto) 84.8 H Lymph % (Auto) 8.7 L George % (Auto) 4.2 Eos % (Auto) 1.7 Baso % (Auto) 0.6 Neut # (Auto) 13.4 H Lymph # (Auto) 1.4 George # (Auto) 0.7 Eos # (Auto) 0.3 Baso # (Auto) 0.1 Neutrophils % (Manual) 90 H Band Neutrophils % 2 Lymphocytes % (Manual) 7 L Monocytes % (Manual) 1 Platelet Estimate Normal Polychromasia Slight Hypochromasia (manual) Slight Anisocytosis (manual) Slight Target Cells Slight Puncture Site pCO2 pO2 HCO3 ABG pH ABG Total CO2 ABG O2 Saturation ABG Base Excess ABG Hemoglobin ABG Carboxyhemoglobin POC ABG HHb (Measured) ABG Methemoglobin Oscar Test A-a O2 Difference Respiratory Index Hgb O2 Saturation Vent Mode Mechanical Rate FiO2 Tidal Volume PEEP Sodium 160 H* Potassium 3.3 L Chloride 120 H Carbon Dioxide 33 H Anion Gap 10 BUN 37 H Creatinine 1.8 H Est GFR ( Amer) 45 Est GFR (Non-Af Amer) 37 POC Glucose (mg/dL) 154 H Random Glucose 168 H Calcium 7.7 L Phosphorus 2.9 Magnesium 2.7 H Total Bilirubin 0.4 AST 22 ALT 36 Alkaline Phosphatase 63 Total Protein 6.0 L Albumin 2.7 L Globulin 3.3 Albumin/Globulin Ratio 0.8 L 12/08/17 11:29 WBC RBC Hgb Hct MCV MCH MCHC RDW Plt Count MPV Neut % (Auto) Lymph % (Auto) George % (Auto) Eos % (Auto) Baso % (Auto) Neut # (Auto) Lymph # (Auto) George # (Auto) Eos # (Auto) Baso # (Auto) Neutrophils % (Manual) Band Neutrophils % Lymphocytes % (Manual) Monocytes % (Manual) Platelet Estimate Polychromasia Hypochromasia (manual) Anisocytosis (manual) Target Cells Puncture Site pCO2 pO2 HCO3 ABG pH ABG Total CO2 ABG O2 Saturation ABG Base Excess ABG Hemoglobin ABG Carboxyhemoglobin POC ABG HHb (Measured) ABG Methemoglobin Oscar Test A-a O2 Difference Respiratory Index Hgb O2 Saturation Vent Mode Mechanical Rate FiO2 Tidal Volume PEEP Sodium Potassium Chloride Carbon Dioxide Anion Gap BUN Creatinine Est GFR ( Amer) Est GFR (Non-Af Amer) POC Glucose (mg/dL) 174 H Random Glucose Calcium Phosphorus Magnesium Total Bilirubin AST ALT Alkaline Phosphatase Total Protein Albumin Globulin Albumin/Globulin Ratio Critical Care Progress Note - Nutrition Nutrition: Nutrition Category Date Time Status Heart Healthy Diet [DIET] Diets 11/30/17 Lunch Active Attending/Attestation - Attestation I have personally seen and examined this patient.: Yes I have fully participated in the care of the patient.: Yes I have reviewed all pertinent clinical information: Yes Notes (Text): 12/08/17 16:08 patient seen and examined in the intensive care unit. case discussed with house staff in the morning. Remain intubated on ventilatory support FiO2 reduced to 60% with PEEP of 10 Diuresed almost 4 L yesterday Continue antibiotics for pneumonia Monitor renal function
[2017-12-08] MEDS: Multiple Vitamins Tab PO SCH (10:45)
[2017-12-08] MEDS: metOLazone 5 MG TAB PO SCH (10:46)
[2017-12-08] MEDS: Vancomycin 1 gm/NS 200 ml 1 GM/200 ML BAG IVPB SCH (11:46)
--- NOTE | 2017-12-08 13:14 | CP.PCM.CON ---
History of Present Illness - History of Present Illness History of Present Illness: This patient who is 72 years of age I was called to see him for consultation for abnormal kidney function. Patient is on respirator and the history was taken from the medical record which indicated patient was admitted with what appeared to be bilateral pneumonia hypotensive and his electrolyte has been abnormal along with abnormal kidney function. Medication has been reviewed and noted that the patient is receiving antibiotics and intermittent doses of diuretics. Past medical history as noted in the medical record Social history not contributory View of system as noted below patient also has a NG-tube feeding Review of Systems - Review of Systems Systems not reviewed;Unavailable: Intubated - Constitutional Constitutional: Anorexia. absent: Chills - EENT Eyes: Blurred Vision Nose/Mouth/Throat: absent: Epistaxis, Neck Pain - Cardiovascular Cardiovascular: Dyspnea, Leg Ulcers. absent: Chest Pain - Respiratory Respiratory: Cough, Dyspnea - Gastrointestinal Gastrointestinal: absent: Coffee Ground Emesis, Vomiting - Genitourinary Genitourinary: Nocturia - Musculoskeletal Musculoskeletal: As Per HPI - Neurological Neurological: As Per HPI - Hematologic/Lymphatic Hematologic: absent: Easy Bleeding Past Patient History - Past Medical History & Family History Past Medical History?: Yes - Past Social History Smoking Status: Former Smoker - CARDIAC Hx Congestive Heart Failure: Yes Hx Hypertension: Yes - PULMONARY Hx Chronic Obstructive Pulmonary Disease (COPD): Yes - NEUROLOGICAL HX Cerebrovascular Accident: Yes (left hemiparesis) - HEENT Hx Difficulty Chewing: Yes - RENAL Hx Renal Failure: Yes (renal insufficiency) - MUSCULOSKELETAL/RHEUMATOLOGICAL Hx Arthritis: Yes (neck and right shoulder) - GASTROINTESTINAL Hx Clostridium Difficile: Yes Other/Comment: PEG - GENITOURINARY/GYNECOLOGICAL Hx Incontinence: Yes Hx Prostate Problems: Yes - PSYCHIATRIC Hx Substance Use: No - SURGICAL HISTORY Hx Herniorrhaphy: Yes Other/Comment: Laminectomy - ANESTHESIA Hx Anesthesia: Yes Hx Anesthesia Reactions: No Meds Allergies/Adverse Reactions: Allergies Allergy/AdvReac Type Severity Reaction Status Date / Time aspirin Allergy Verified 11/26/17 17:20 ketorolac [From Toradol] Allergy Verified 11/26/17 17:20 NSAIDS (Non-Steroidal Allergy Verified 11/26/17 17:20 Anti-Inflamma - Medications Medications: Current Medications Acetaminophen (Tylenol 650mg/20.3ml Solution Ud) 650 mg PO Q6 PRN PRN Reason: Temperature Last Admin: 12/08/17 11:38 Dose: 650 mg Albuterol/Ipratropium (Duoneb 3 Mg/0.5 Mg (3 Ml) Ud) 3 ml INH RQ6 [facility] Last Admin: 12/08/17 07:55 Dose: 3 ml Apixaban (Eliquis) 2.5 mg PO BID [facility] Last Admin: 12/08/17 10:45 Dose: 2.5 mg Ascorbic Acid (Vitamin C 500 Mg Tab) 500 mg PO DAILY [facility] Last Admin: 12/08/17 10:46 Dose: 500 mg Famotidine (Pepcid) 20 mg PO DAILY [facility] Last Admin: 12/08/17 10:48 Dose: 20 mg Meropenem 500 mg/ Sodium (Chloride) 100 mls @ 100 mls/hr IVPB Q8 [facility] Last Admin: 12/08/17 05:41 Dose: 100 mls/hr Vancomycin/Sodium Chloride (Vancomycin 1 Gm/Ns 200 Ml) 1 gm in 200 mls @ 133.333 mls/hr IVPB Q24H [facility] Stop: 12/11/17 13:31 Last Admin: 12/08/17 11:46 Dose: 133.333 mls/hr Dopamine HCl/Dextrose (Dopamine 400mg/250ml D5w) 400 mg in 250 mls @ 34.875 mls /hr IV .Q7H11M PRN; Protocol; 10 MCG/KG/MIN PRN Reason: TITRATE PER MD ORDER Last Admin: 12/08/17 07:33 Dose: 10 mcg/kg/min, 34.875 mls/hr Insulin Aspart (Novolog) 0 unit SC Q6H [facility] PRN Reason: Protocol Last Admin: 12/08/17 11:39 Dose: 2 unit Metolazone (Zaroxolyn) 5 mg PO DAILY [facility] Last Admin: 12/08/17 10:46 Dose: 5 mg Multivitamins (Hexavitamin) 1 tab PO DAILY [facility] Last Admin: 12/08/17 10:45 Dose: 1 tab Tamsulosin HCl (Flomax) 0.4 mg PO DAILY [facility] Last Admin: 12/08/17 10:45 Dose: 0.4 mg Zinc Sulfate (Zinc Sulfate 220 Mg Cap) 220 mg PO DAILY [facility] Last Admin: 12/08/17 10:46 Dose: 220 mg Physical Exam - Constitutional Appears: No Acute Distress - ENT Exam ENT Exam: Mucous Membranes Moist - Neck Exam Neck exam: Negative for: Lymphadenopathy - Respiratory Exam Respiratory Exam: Rales. absent: Chest Wall Tenderness - Cardiovascular Exam Cardiovascular Exam: absent: JVD, Rubs - GI/Abdominal Exam GI & Abdominal Exam: Normal Bowel Sounds. absent: Guarding - Extremities Exam Extremities exam: Negative for: calf tenderness - Back Exam Back exam: absent: CVA tenderness (L), CVA tenderness (R) - Neurological Exam Neurological exam: Altered - Skin Skin Exam: Abrasion Results - Vital Signs Recent Vital Signs: Last Vital Signs Temp 100.9 F H 12/08/17 12:00 Pulse 97 H 12/08/17 12:00 Resp 18 12/08/17 12:00 BP 82/46 L 12/08/17 11:59 Pulse Ox 100 12/08/17 12:00 - Labs Result Diagrams: 12/08/17 06:40 12/08/17 06:29 Labs: Laboratory Results - last 24 hr 12/07/17 12/08/17 12/08/17 17:25 00:01 05:15 WBC RBC Hgb Hct MCV MCH MCHC RDW Plt Count MPV Neut % (Auto) Lymph % (Auto) [place] % (Auto) Eos % (Auto) Baso % (Auto) Neut # (Auto) Lymph # (Auto) [place] # (Auto) Eos # (Auto) Baso # (Auto) Neutrophils % (Manual) Band Neutrophils % Lymphocytes % (Manual) Monocytes % (Manual) Platelet Estimate Polychromasia Hypochromasia (manual) Anisocytosis (manual) Target Cells Puncture Site Rr pCO2 46 H pO2 71 L HCO3 31.0 H ABG pH 7.46 H ABG Total CO2 34.1 H ABG O2 Saturation 96.2 ABG Base Excess 7.9 H ABG Hemoglobin 11.1 L ABG Carboxyhemoglobin 1.5 POC ABG HHb (Measured) 3.7 ABG Methemoglobin 0.9 Oscar Test Pos A-a O2 Difference 442.0 Respiratory Index 6.2 Hgb O2 Saturation 94.0 L Vent Mode Prvc Mechanical Rate 16 FiO2 80.0 Tidal Volume 550 PEEP 10 Sodium Potassium Chloride Carbon Dioxide Anion Gap BUN Creatinine Est GFR ( Amer) Est GFR (Non-Af Amer) POC Glucose (mg/dL) 162 H 137 H Random Glucose Calcium Phosphorus Magnesium Total Bilirubin AST ALT Alkaline Phosphatase Total Protein Albumin Globulin Albumin/Globulin Ratio 12/08/17 12/08/17 12/08/17 05:59 06:29 06:40 WBC 15.8 H RBC 3.75 L Hgb 10.4 L Hct 31.3 L MCV 83.6 MCH 27.9 MCHC 33.4 RDW 17.3 H Plt Count 180 MPV 9.3 Neut % (Auto) 84.8 H Lymph % (Auto) 8.7 L [place] % (Auto) 4.2 Eos % (Auto) 1.7 Baso % (Auto) 0.6 Neut # (Auto) 13.4 H Lymph # (Auto) 1.4 [place] # (Auto) 0.7 Eos # (Auto) 0.3 Baso # (Auto) 0.1 Neutrophils % (Manual) 90 H Band Neutrophils % 2 Lymphocytes % (Manual) 7 L Monocytes % (Manual) 1 Platelet Estimate Normal Polychromasia Slight Hypochromasia (manual) Slight Anisocytosis (manual) Slight Target Cells Slight Puncture Site pCO2 pO2 HCO3 ABG pH ABG Total CO2 ABG O2 Saturation ABG Base Excess ABG Hemoglobin ABG Carboxyhemoglobin POC ABG HHb (Measured) ABG Methemoglobin Oscar Test A-a O2 Difference Respiratory Index Hgb O2 Saturation Vent Mode Mechanical Rate FiO2 Tidal Volume PEEP Sodium 160 H* Potassium 3.3 L Chloride 120 H Carbon Dioxide 33 H Anion Gap 10 BUN 37 H Creatinine 1.8 H Est GFR ( Amer) 45 Est GFR (Non-Af Amer) 37 POC Glucose (mg/dL) 154 H Random Glucose 168 H Calcium 7.7 L Phosphorus 2.9 Magnesium 2.7 H Total Bilirubin 0.4 AST 22 ALT 36 Alkaline Phosphatase 63 Total Protein 6.0 L Albumin 2.7 L Globulin 3.3 Albumin/Globulin Ratio 0.8 L 12/08/17 11:29 WBC RBC Hgb Hct MCV MCH MCHC RDW Plt Count MPV Neut % (Auto) Lymph % (Auto) [place] % (Auto) Eos % (Auto) Baso % (Auto) Neut # (Auto) Lymph # (Auto) [place] # (Auto) Eos # (Auto) Baso # (Auto) Neutrophils % (Manual) Band Neutrophils % Lymphocytes % (Manual) Monocytes % (Manual) Platelet Estimate Polychromasia Hypochromasia (manual) Anisocytosis (manual) Target Cells Puncture Site pCO2 pO2 HCO3 ABG pH ABG Total CO2 ABG O2 Saturation ABG Base Excess ABG Hemoglobin ABG Carboxyhemoglobin POC ABG HHb (Measured) ABG Methemoglobin Oscar Test A-a O2 Difference Respiratory Index Hgb O2 Saturation Vent Mode Mechanical Rate FiO2 Tidal Volume PEEP Sodium Potassium Chloride Carbon Dioxide Anion Gap BUN Creatinine Est GFR ( Amer) Est GFR (Non-Af Amer) POC Glucose (mg/dL) 174 H Random Glucose Calcium Phosphorus Magnesium Total Bilirubin AST ALT Alkaline Phosphatase Total Protein Albumin Globulin Albumin/Globulin Ratio Assessment & Plan (1) CHF exacerbation Status: Acute (2) Hypernatremia Status: Acute (3) Leukocytosis Status: Acute (4) Pneumonia Status: Acute (5) Respiratory failure Status: Acute (6) Acute kidney injury Assessment and Plan: Patient has multitude of medical problem Acute kidney injury most likely related to dehydration. Hypernatremia and hyperchloremia secondary to dehydration as well my recommendation to give water through the NG 200 mL every 4 hours I spoke to the Nurse in intensive care unit to apply these changes Monitor antibiotics evaluated with the renal dose. Patient in respiratory failure . As per primary team. Continue monitoring Status: Acute
--- NOTE | 2017-12-08 17:45 | CP.PCM.PN ---
Subjective - Date & Time of Evaluation Date of Evaluation: 12/08/17 Time of Evaluation: 09:00 - Subjective Subjective: awake alert less fever Objective - Vital Signs/Intake and Output Vital Signs (last 24 hours): Temp Pulse Resp BP Pulse Ox 99.8 F H 95 H 16 103/59 L 97 12/08/17 12:38 12/08/17 17:30 12/08/17 17:30 12/08/17 17:30 12/08/17 17:30 Intake and Output: 12/08/17 12/08/17 06:59 18:59 Intake Total 1192.1 1494.1 Output Total 2220 705 Balance -1027.9 789.1 - Medications Medications: Current Medications Acetaminophen (Tylenol 650mg/20.3ml Solution Ud) 650 mg PO Q6 PRN PRN Reason: Temperature Last Admin: 12/08/17 11:38 Dose: 650 mg Albuterol/Ipratropium (Duoneb 3 Mg/0.5 Mg (3 Ml) Ud) 3 ml INH RQ6 [facility] Last Admin: 12/08/17 14:05 Dose: 3 ml Apixaban (Eliquis) 2.5 mg PO BID [facility] Last Admin: 12/08/17 17:32 Dose: 2.5 mg Ascorbic Acid (Vitamin C 500 Mg Tab) 500 mg PO DAILY [facility] Last Admin: 12/08/17 10:46 Dose: 500 mg Famotidine (Pepcid) 20 mg PO DAILY [facility] Last Admin: 12/08/17 10:48 Dose: 20 mg Meropenem 500 mg/ Sodium (Chloride) 100 mls @ 100 mls/hr IVPB Q8 [facility] Last Admin: 12/08/17 14:03 Dose: 100 mls/hr Vancomycin/Sodium Chloride (Vancomycin 1 Gm/Ns 200 Ml) 1 gm in 200 mls @ 133.333 mls/hr IVPB Q24H [facility] Stop: 12/11/17 13:31 Last Admin: 12/08/17 11:46 Dose: 133.333 mls/hr Dopamine HCl/Dextrose (Dopamine 400mg/250ml D5w) 400 mg in 250 mls @ 34.875 mls /hr IV .Q7H11M PRN; Protocol; 10 MCG/KG/MIN PRN Reason: TITRATE PER MD ORDER Last Admin: 12/08/17 17:30 Dose: 10 mcg/kg/min, 34.875 mls/hr Insulin Aspart (Novolog) 0 unit SC Q6H [facility] PRN Reason: Protocol Last Admin: 12/08/17 17:35 Dose: Not Given Metolazone (Zaroxolyn) 5 mg PO DAILY [facility] Last Admin: 12/08/17 10:46 Dose: 5 mg Multivitamins (Hexavitamin) 1 tab PO DAILY [facility] Last Admin: 12/08/17 10:45 Dose: 1 tab Tamsulosin HCl (Flomax) 0.4 mg PO DAILY [facility] Last Admin: 12/08/17 10:45 Dose: 0.4 mg Zinc Sulfate (Zinc Sulfate 220 Mg Cap) 220 mg PO DAILY [facility] Last Admin: 12/08/17 10:46 Dose: 220 mg - Labs Labs: 12/08/17 06:40 12/08/17 06:29 PT 16.6 SECONDS (9.7-12.2) H 11/26/17 17:31 INR 1.5 11/26/17 17:31 APTT 31 SECONDS (21-34) 11/26/17 17:31 - Constitutional Appears: Confused, Chronically Ill - Head Exam Head Exam: NORMOCEPHALIC - Eye Exam Eye Exam: PERRL. absent: Scleral icterus - ENT Exam ENT Exam: Mucous Membranes Dry - Neck Exam Neck Exam: absent: Lymphadenopathy - Respiratory Exam Respiratory Exam: Decreased Breath Sounds - Cardiovascular Exam Cardiovascular Exam: REGULAR RHYTHM - GI/Abdominal Exam GI & Abdominal Exam: Distended, Soft - Rectal Exam Rectal Exam: Deferred - Exam Exam: NORMAL INSPECTION - Extremities Exam Extremities Exam: Pedal Edema, Tenderness - Back Exam Back Exam: absent: CVA tenderness (L), CVA tenderness (R) - Neurological Exam Neurological Exam: Altered - Psychiatric Exam Psychiatric exam: Depressed Assessment and Plan (1) Acute urinary retention Status: Acute (2) Fever Status: Acute (3) Sepsis associated hypotension Status: Acute (4) Pneumonia Status: Acute (5) Respiratory failure Status: Acute - Assessment and Plan (Free Text) Assessment: cont iv vanco / merrem discussed with dr Arciniega
[2017-12-09] MEDS: DOPamine 400mg/250ml D5W 400 MG/250 ML BAG IV PRN ×3 (00:15→15:05)
[2017-12-09] MEDS: (Novolog) Insulin Aspart, Recombinant 100 u/ml 10 ml vial SC SCH ×4 (00:17→18:00)
[2017-12-09] MEDS: Albuterol-Ipratrop 3 mg / 0.5 (3 ml) UD INH SCH ×4 (01:13→20:35)
[2017-12-09 05:34] LABS: ABG ALLEN TEST POS; ARTERIAL BLOOD GAS HCO3 30.4 mmol/L (21-28); ARTERIAL BLOOD GAS HEMOGLOBIN 10.2 g/dL (11.7-17.4); ARTERIAL BLOOD GAS O2 SAT 93.6 % (95-98); ARTERIAL BLOOD GAS PCO2 49 mm/Hg (35-45); ARTERIAL BLOOD GAS PH 7.43 (7.35-7.45); ARTERIAL BLOOD GAS PO2 60 mm/Hg (80-100)
[2017-12-09] MEDS: Meropenem 500 MG in Sodium Chloride 0.9% 100 ML IVPB SCH ×3 (06:27→22:14)
[2017-12-09 06:36] LABS: BASO # 0.1 K/uL (0.0-0.2); BASO % 0.6 % (0.0-2.0); EOS # 0.3 K/uL (0.0-0.7); EOS % 2.3 % (0.0-4.0); HEMOGLOBIN 9.8 g/dL (12.0-18.0); LYMPH % 8.2 % (20.0-40.0); MEAN CORPUSCULAR HEMOGLOBIN 27.5 pg (27.0-31.0); MEAN CORPUSCULAR HGB CONC 33.1 g/dL (33.0-37.0); MEAN PLATELET VOLUME 9.9 fL (7.2-11.7); MONO # 0.7 K/uL (0.0-0.8); MONO % 5.8 % (0.0-10.0); NEUT # 10.5 K/uL (1.8-7.0); NEUT % 83.1 % (50.0-75.0); PLATELET COUNT 183 K/uL (130-400); RBC 3.57 Mil/uL (4.40-5.90); RED CELL DISTRIBUTION WIDTH 16.9 % (11.5-14.5); WHITE BLOOD COUNT 12.7 K/uL (4.8-10.8)
[2017-12-09 07:02] LABS: ALB/GLOB RATIO 0.8 (1.0-2.1); ALBUMIN 2.6 g/dL (3.5-5.0); CALCIUM 7.7 mg/dl (8.6-10.4); MAGNESIUM 2.8 mg/dL (1.6-2.3)
[2017-12-09 08:37] LABS: EOSINOPHIL 3 % (0-4); HYPOCHROMIC SLIGHT; LYMPHOCYTE 8 % (20-40); MONOCYTE 4 % (0-10); NEUTROPHIL 85 % (50-75); PLATELET ESTIMATE NORMAL (NORMAL); TOTAL CELLS COUNTED 100
[2017-12-09 08:38] LABS: LARGE PLATELETS PRESENT; TOXIC GRANULATION PRESENT
--- NOTE | 2017-12-09 09:03 | RAD ---
Chest x-ray single frontal view History: Infiltrate. Comparison: 12/08/2017 Findings Lines and tubes in stable position. Right paratracheal airspace opacity. Prominent diffuse increased interstitial lung markings which may represent underlying infiltrate and or edema superimposed on fibrotic changes. Dense confluent consolidative changes in the bilateral mid lung zones as well as the right lung base. Biapical pleural thickening. Small right pleural effusion. Calcification at the aortic knob. Cardiomegaly. Degenerative changes in the spine and shoulders. Postsurgical changes in the cervical spine. Impression: Lines and tubes in stable position. Right paratracheal airspace opacity. Prominent diffuse increased interstitial lung markings which may represent underlying infiltrate and or edema superimposed on fibrotic changes. Dense confluent consolidative changes in the bilateral mid lung zones as well as the right lung base. Biapical pleural thickening. Small right pleural effusion. Calcification at the aortic knob. Cardiomegaly.
[2017-12-09] MEDS: Multiple Vitamins Tab PO SCH (09:45)
--- NOTE | 2017-12-09 10:44 | CP.PCM.PN ---
Subjective - Date & Time of Evaluation Date of Evaluation: 12/09/17 Time of Evaluation: 10:35 - Subjective Subjective: Patient remains intubated, sedated. Objective - Vital Signs/Intake and Output Vital Signs (last 24 hours): Temp Pulse Resp BP Pulse Ox 100.5 F H 84 17 98/60 L 100 12/09/17 08:00 12/09/17 09:58 12/09/17 09:58 12/09/17 09:58 12/09/17 09:58 Intake and Output: 12/09/17 12/09/17 06:59 18:59 Intake Total 2174.8 560.2 Output Total 1255 400 Balance 919.8 160.2 - Medications Medications: Current Medications Acetaminophen (Tylenol 650mg/20.3ml Solution Ud) 650 mg PO Q6 PRN PRN Reason: Temperature Last Admin: 12/08/17 11:38 Dose: 650 mg Albuterol/Ipratropium (Duoneb 3 Mg/0.5 Mg (3 Ml) Ud) 3 ml INH RQ6 [facility] Last Admin: 12/09/17 08:00 Dose: 3 ml Ascorbic Acid (Vitamin C 500 Mg Tab) 500 mg PO DAILY [facility] Last Admin: 12/09/17 09:45 Dose: 500 mg Famotidine (Pepcid) 20 mg PO DAILY [facility] Last Admin: 12/09/17 09:45 Dose: 20 mg Heparin Sodium (Porcine) (Heparin) 5,000 units SC Q8 [facility] Meropenem 500 mg/ Sodium (Chloride) 100 mls @ 100 mls/hr IVPB Q8 [facility] Last Admin: 12/09/17 06:27 Dose: 100 mls/hr Vancomycin/Sodium Chloride (Vancomycin 1 Gm/Ns 200 Ml) 1 gm in 200 mls @ 133.333 mls/hr IVPB Q24H [facility] Stop: 12/11/17 13:31 Last Admin: 12/08/17 11:46 Dose: 133.333 mls/hr Dopamine HCl/Dextrose (Dopamine 400mg/250ml D5w) 400 mg in 250 mls @ 34.875 mls /hr IV .Q7H11M PRN; Protocol; 10 MCG/KG/MIN PRN Reason: TITRATE PER MD ORDER Last Titration: 12/09/17 07:00 Dose: 10 mcg/kg/min, 34.875 mls/hr Insulin Aspart (Novolog) 0 unit SC Q6H [facility] PRN Reason: Protocol Last Admin: 12/09/17 06:27 Dose: 2 unit Multivitamins (Hexavitamin) 1 tab PO DAILY [facility] Last Admin: 12/09/17 09:45 Dose: 1 tab Tamsulosin HCl (Flomax) 0.4 mg PO DAILY [facility] Last Admin: 12/09/17 09:45 Dose: 0.4 mg Zinc Sulfate (Zinc Sulfate 220 Mg Cap) 220 mg PO DAILY [facility] Last Admin: 12/09/17 09:45 Dose: 220 mg - Labs Labs: 12/09/17 06:30 12/09/17 06:30 PT 16.6 SECONDS (9.7-12.2) H 11/26/17 17:31 INR 1.5 11/26/17 17:31 APTT 31 SECONDS (21-34) 11/26/17 17:31 - Constitutional Appears: Non-toxic - Head Exam Head Exam: NORMAL INSPECTION - Eye Exam Eye Exam: Normal appearance - ENT Exam ENT Exam: Mucous Membranes Moist - Neck Exam Neck Exam: Full ROM - Respiratory Exam Respiratory Exam: Decreased Breath Sounds - Cardiovascular Exam Cardiovascular Exam: REGULAR RHYTHM - GI/Abdominal Exam GI & Abdominal Exam: Normal Bowel Sounds - Rectal Exam Rectal Exam: Deferred - Extremities Exam Extremities Exam: Pedal Edema - Neurological Exam Neurological Exam: Alert - Skin Skin Exam: Normal Color Assessment and Plan (1) Cardiac arrest Assessment & Plan: likely respiratory in origin. now awake, but remains intubated. no immediate need for PPM. remains on low dose dopamine. Status: Acute (2) Hypernatremia Assessment & Plan: renal following. free water boluses Status: Acute
--- NOTE | 2017-12-09 11:53 | CON ---
DATE: REASON FOR CONSULTATION: Supportive care. Continue treatment, on the ventilator, continue support. Trial of CPAP. Adrianne Stanley MD
[2017-12-09] MEDS: Vancomycin 1 gm/NS 200 ml 1 GM/200 ML BAG IVPB SCH (12:03)
--- NOTE | 2017-12-09 15:06 | CP.PCM.PN ---
Subjective - Date & Time of Evaluation Date of Evaluation: 12/09/17 Time of Evaluation: 15:03 - Subjective Subjective: renal follow up note please call us at [phone] if any qs no events overnight vitals reviewed heent unchanged intubated s1s2 present bilateral air entry equal, vent dep abd soft skin normal ao times 0 plan ro/hypernatremia/chf/acute resp failure/sepsis syndrome monitor I&Os continue free water, sodium slowly improving lytes reviewed abx per id,dose for reduced gfr Objective - Vital Signs/Intake and Output Vital Signs (last 24 hours): Temp Pulse Resp BP Pulse Ox 98.8 F 75 16 96/53 L 100 12/09/17 12:00 12/09/17 13:59 12/09/17 13:59 12/09/17 13:59 12/09/17 13:59 Intake and Output: 12/09/17 12/09/17 06:59 18:59 Intake Total 2174.8 1099.4 Output Total 1255 900 Balance 919.8 199.4 - Medications Medications: Current Medications Acetaminophen (Tylenol 650mg/20.3ml Solution Ud) 650 mg PO Q6 PRN PRN Reason: Temperature Last Admin: 12/08/17 11:38 Dose: 650 mg Albuterol/Ipratropium (Duoneb 3 Mg/0.5 Mg (3 Ml) Ud) 3 ml INH RQ6 [facility] Last Admin: 12/09/17 13:12 Dose: 3 ml Ascorbic Acid (Vitamin C 500 Mg Tab) 500 mg PO DAILY [facility] Last Admin: 12/09/17 09:45 Dose: 500 mg Famotidine (Pepcid) 20 mg PO DAILY [facility] Last Admin: 12/09/17 09:45 Dose: 20 mg Heparin Sodium (Porcine) (Heparin) 5,000 units SC Q8 [facility] Last Admin: 12/09/17 13:44 Dose: 5,000 units Meropenem 500 mg/ Sodium (Chloride) 100 mls @ 100 mls/hr IVPB Q8 [facility] Last Admin: 12/09/17 13:44 Dose: 100 mls/hr Vancomycin/Sodium Chloride (Vancomycin 1 Gm/Ns 200 Ml) 1 gm in 200 mls @ 133.333 mls/hr IVPB Q24H [facility] Stop: 12/11/17 13:31 Last Admin: 12/09/17 12:03 Dose: 133.333 mls/hr Dopamine HCl/Dextrose (Dopamine 400mg/250ml D5w) 400 mg in 250 mls @ 34.875 mls /hr IV .Q7H11M PRN; Protocol; 10 MCG/KG/MIN PRN Reason: TITRATE PER MD ORDER Last Titration: 12/09/17 07:00 Dose: 10 mcg/kg/min, 34.875 mls/hr Insulin Aspart (Novolog) 0 unit SC Q6H [facility] PRN Reason: Protocol Last Admin: 12/09/17 12:02 Dose: 2 unit Multivitamins (Hexavitamin) 1 tab PO DAILY [facility] Last Admin: 12/09/17 09:45 Dose: 1 tab Tamsulosin HCl (Flomax) 0.4 mg PO DAILY [facility] Last Admin: 12/09/17 09:45 Dose: 0.4 mg Zinc Sulfate (Zinc Sulfate 220 Mg Cap) 220 mg PO DAILY [facility] Last Admin: 12/09/17 09:45 Dose: 220 mg - Labs Labs: 12/09/17 06:30 12/09/17 06:30 PT 16.6 SECONDS (9.7-12.2) H 11/26/17 17:31 INR 1.5 11/26/17 17:31 APTT 31 SECONDS (21-34) 11/26/17 17:31
--- NOTE | 2017-12-09 17:43 | CP.CCUPN ---
<Rick Biswas - Last Filed: 12/09/17 17:42> CCU Subjective - Physician Review Subjective (Free Text): 12/09/17 17:42 Brought to ER on 11/26/17 via ambulance from alf for SOB and hypotension. Subsequently admitted to the medical service. 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 Pt was intubated and transferred to ICU. Today pt seen and examined bedside. Pt is awake, alert and follows commands. Still intubated. PMhx: COPD, CHF, CVA, HTN, BPH Shx: vertebral fusion, PEG Allergies: ASA, keterolac, NSAIDs Social: denied (chart review) Family hx: (denied chart review) Neuro: prior CVA Cardio: HTN (Bruno) continue CVP monitoring consider HARLEY Pulm: Asthma, COPD, hypoxia intubated - increase FIO2 70%, RR 16, Tv 550, PEEP 8 septic shock possible 2/2 MRSA pneumonia vanco 1gm/meropenem 1gm duoneb CT angio was negative for PE GI: no acute issues Renal/Uro: BPH continue flomax 0.4mg QD (Horton) Endo: no acute issues Electrolytes: hypernatremia, hypokalemia continue 200cc free water Q8hr kdur ID: Septic shock, MRSA + sputum culture (Mangia) vanco 1gm meropenem dopamine Skin: pressure ulcer Vitamin C zinc sulfate PPx: pepcid 20mg QD Heparin 5,000 units full code Next of kin: Jessica Marin () CCU Objective - Vital Signs / Intake & Output Vital Signs (Last 4 hours): Vital Signs Temp Pulse Resp BP Pulse Ox 12/09/17 17:04 72 17 96/49 L 100 12/09/17 17:00 66 15 71/32 L 98 12/09/17 16:00 98.5 F 12/09/17 15:59 70 16 119/54 L 100 12/09/17 15:05 64 23 90/48 L 100 12/09/17 14:59 68 17 90/48 L 100 12/09/17 13:59 75 16 96/53 L 100 Intake and Output (Last 8hrs): Intake & Output 12/09/17 12/09/17 12/09/17 06:59 14:59 22:59 Intake Total 1635.2 1328.5 517.4 Output Total 775 900 Balance 860.2 428.5 517.4 Weight 192 lb 14.4 oz Intake: IV 500 250.0 66.4 Intake, IV Amount 335.2 278.5 101.0 Left Proximal Port 335.2 278.5 101.0 Internal Jugular Tube Feeding 400 400 150 Other 400 400 200 Output: Urine 775 900 Urethral (Singh) 775 900 Other: # Bowel Movements 0 0 - Physical Exam Head: Positive for: Atraumatic, Normocephalic Pupils: Positive for: PERRL Mouth: Positive for: Moist Mucous Membranes Respiratory/Chest: Positive for: Other (intubated) Abdomen: Positive for: Normal Bowel Sounds. Negative for: Tenderness, Distention, Peritoneal Signs Psychiatric: Positive for: Alert, Oriented x 3 - Medications Active Medications: Active Medications Generic Name Dose Route Start Last Admin Trade Name Freq PRN Reason Stop Dose Admin Acetaminophen 650 mg 12/06/17 09:30 12/08/17 11:38 Tylenol 650mg/20.3ml Solution Ud PO 650 mg Q6 PRN Administration Temperature Albuterol/Ipratropium 3 ml 12/03/17 14:00 12/09/17 13:12 Duoneb 3 Mg/0.5 Mg (3 Ml) Ud INH 3 ml RQ6 ABHIJEET Administration Ascorbic Acid 500 mg 12/05/17 10:00 12/09/17 09:45 Vitamin C 500 Mg Tab PO 500 mg DAILY ABHIJEET Administration Famotidine 20 mg 11/27/17 10:00 12/09/17 09:45 Pepcid PO 20 mg DAILY ABHIJEET Administration Heparin Sodium (Porcine) 5,000 units 12/09/17 14:00 12/09/17 13:44 Heparin SC 5,000 units Q8 ABHIJEET Administration Meropenem 500 mg/ Sodium 100 mls @ 100 mls/hr 12/06/17 14:00 12/09/17 13:44 Chloride IVPB 100 mls/hr Q8 ABHIJEET Administration Vancomycin/Sodium Chloride 1 gm in 200 mls @ 133.333 mls/hr 12/06/17 12:15 12:03 Vancomycin 1 Gm/Ns 200 Ml IVPB 12/11/17 13:31 133.333 mls/hr Q24H ABHIJEET Administration Dopamine HCl/Dextrose 400 mg in 250 mls @ 34.875 mls/hr 12/06/17 19:16 17:00 Dopamine 400mg/250ml D5w IV 10 mcg/kg/min .Q7H11M PRN 34.875 mls/hr TITRATE PER MD ORDER Titration Protocol 10 MCG/KG/MIN Insulin Aspart 0 unit 12/02/17 18:00 12/09/17 12:02 Novolog SC 2 unit Q6H ABHIJEET Administration Protocol Multivitamins 1 tab 12/07/17 10:00 12/09/17 09:45 Hexavitamin PO 1 tab DAILY ABHIJEET Administration Tamsulosin HCl 0.4 mg 11/27/17 10:00 12/09/17 09:45 Flomax PO 0.4 mg DAILY ABHIJEET Administration Zinc Sulfate 220 mg 12/02/17 10:00 12/09/17 09:45 Zinc Sulfate 220 Mg Cap PO 220 mg DAILY ABHIJEET Administration - Patient Studies Lab Studies: Microbiology Studies 12/06/17 09:19 Gram Stain - Final Trachasp Sputum Culture - Final Methicillin Resistant S Aureus 12/06/17 09:19 S.aureus & Coag-Neg Staph PNA FISH - Final Blood-Venous Blood Culture - Preliminary Staphylococcus Aureus Gram Stain - Final Lab Studies 12/09/17 12/09/17 12/09/17 Range/Units 11:35 06:30 06:30 WBC 12.7 H (4.8-10.8) K/uL RBC 3.57 L (4.40-5.90) Mil/uL Hgb 9.8 L (12.0-18.0) g/dL Hct 29.7 L (35.0-51.0) % MCV 83.0 (80.0-94.0) fL MCH 27.5 (27.0-31.0) pg MCHC 33.1 (33.0-37.0) g/dL RDW 16.9 H (11.5-14.5) % Plt Count 183 (130-400) K/uL MPV 9.9 (7.2-11.7) fL Neut % (Auto) 83.1 H (50.0-75.0) % Lymph % (Auto) 8.2 L (20.0-40.0) % [place] % (Auto) 5.8 (0.0-10.0) % Eos % (Auto) 2.3 (0.0-4.0) % Baso % (Auto) 0.6 (0.0-2.0) % Neut # (Auto) 10.5 H (1.8-7.0) K/uL Lymph # (Auto) 1.0 (1.0-4.3) K/uL [place] # (Auto) 0.7 (0.0-0.8) K/uL Eos # (Auto) 0.3 (0.0-0.7) K/uL Baso # (Auto) 0.1 (0.0-0.2) K/uL Neutrophils % (Manual) 85 H (50-75) % Lymphocytes % (Manual) 8 L (20-40) % Monocytes % (Manual) 4 (0-10) % Eosinophils % (Manual) 3 (0-4) % Toxic Granulation Present Platelet Estimate Normal (NORMAL) Large Platelets Present Hypochromasia (manual) Slight Puncture Site pCO2 (35-45) mm/Hg pO2 (80-100) mm/Hg HCO3 (21-28) mmol/L ABG pH (7.35-7.45) ABG Total CO2 (22-28) mmol/L ABG O2 Saturation (95-98) % ABG Base Excess (-2.0-3.0) mmol/L ABG Hemoglobin (11.7-17.4) g/dL ABG Carboxyhemoglobin (0.5-1.5) % POC ABG HHb (Measured) (0.0-5.0) % ABG Methemoglobin (0.0-3.0) % Oscar Test A-a O2 Difference mm/Hg Respiratory Index Hgb O2 Saturation (95.0-98.0) % Vent Mode Mechanical Rate FiO2 % Tidal Volume PEEP Sodium 154 H (132-148) mmol/L Potassium 3.3 L (3.6-5.2) mmol/L Chloride 114 H (98-107) mmol/L Carbon Dioxide 33 H (22-30) mmol/L Anion Gap 10 (10-20) BUN 38 H (9-20) mg/dL Creatinine 1.7 H (0.8-1.5) mg/dL Est GFR ( Amer) 48 Est GFR (Non-Af Amer) 40 POC Glucose (mg/dL) 155 H (65-110) mg/dL Random Glucose 169 H (75-110) mg/dL Calcium 7.7 L (8.6-10.4) mg/dl Phosphorus 3.0 (2.5-4.5) mg/dL Magnesium 2.8 H (1.6-2.3) mg/dL Total Bilirubin 0.4 (0.2-1.3) mg/dL AST 31 (17-59) U/L ALT 37 (21-72) U/L Alkaline Phosphatase 70 (38-126) U/L Total Protein 6.0 L (6.3-8.3) g/dL Albumin 2.6 L (3.5-5.0) g/dL Globulin 3.3 (2.2-3.9) gm/dL Albumin/Globulin Ratio 0.8 L (1.0-2.1) 12/09/17 12/09/17 12/08/17 Range/Units 06:21 05:15 23:46 WBC (4.8-10.8) K/uL RBC (4.40-5.90) Mil/uL Hgb (12.0-18.0) g/dL Hct (35.0-51.0) % MCV (80.0-94.0) fL MCH (27.0-31.0) pg MCHC (33.0-37.0) g/dL RDW (11.5-14.5) % Plt Count (130-400) K/uL MPV (7.2-11.7) fL Neut % (Auto) (50.0-75.0) % Lymph % (Auto) (20.0-40.0) % [place] % (Auto) (0.0-10.0) % Eos % (Auto) (0.0-4.0) % Baso % (Auto) (0.0-2.0) % Neut # (Auto) (1.8-7.0) K/uL Lymph # (Auto) (1.0-4.3) K/uL [place] # (Auto) (0.0-0.8) K/uL Eos # (Auto) (0.0-0.7) K/uL Baso # (Auto) (0.0-0.2) K/uL Neutrophils % (Manual) (50-75) % Lymphocytes % (Manual) (20-40) % Monocytes % (Manual) (0-10) % Eosinophils % (Manual) (0-4) % Toxic Granulation Platelet Estimate (NORMAL) Large Platelets Hypochromasia (manual) Puncture Site Rr pCO2 49 H (35-45) mm/Hg pO2 60 L (80-100) mm/Hg HCO3 30.4 H (21-28) mmol/L ABG pH 7.43 (7.35-7.45) ABG Total CO2 34.0 H (22-28) mmol/L ABG O2 Saturation 93.6 L (95-98) % ABG Base Excess 7.2 H (-2.0-3.0) mmol/L ABG Hemoglobin 10.2 L (11.7-17.4) g/dL ABG Carboxyhemoglobin 1.8 H (0.5-1.5) % POC ABG HHb (Measured) 6.2 H (0.0-5.0) % ABG Methemoglobin 0.9 (0.0-3.0) % Oscar Test Pos A-a O2 Difference 307.0 mm/Hg Respiratory Index 5.1 Hgb O2 Saturation 91.1 L (95.0-98.0) % Vent Mode Prvc Mechanical Rate 16 FiO2 60.0 % Tidal Volume 550 PEEP 7 Sodium (132-148) mmol/L Potassium (3.6-5.2) mmol/L Chloride (98-107) mmol/L Carbon Dioxide (22-30) mmol/L Anion Gap (10-20) BUN (9-20) mg/dL Creatinine (0.8-1.5) mg/dL Est GFR ( Amer) Est GFR (Non-Af Amer) POC Glucose (mg/dL) 166 H 137 H (65-110) mg/dL Random Glucose (75-110) mg/dL Calcium (8.6-10.4) mg/dl Phosphorus (2.5-4.5) mg/dL Magnesium (1.6-2.3) mg/dL Total Bilirubin (0.2-1.3) mg/dL AST (17-59) U/L ALT (21-72) U/L Alkaline Phosphatase (38-126) U/L Total Protein (6.3-8.3) g/dL Albumin (3.5-5.0) g/dL Globulin (2.2-3.9) gm/dL Albumin/Globulin Ratio (1.0-2.1) 12/08/17 Range/Units 17:34 WBC (4.8-10.8) K/uL RBC (4.40-5.90) Mil/uL Hgb (12.0-18.0) g/dL Hct (35.0-51.0) % MCV (80.0-94.0) fL MCH (27.0-31.0) pg MCHC (33.0-37.0) g/dL RDW (11.5-14.5) % Plt Count (130-400) K/uL MPV (7.2-11.7) fL Neut % (Auto) (50.0-75.0) % Lymph % (Auto) (20.0-40.0) % [place] % (Auto) (0.0-10.0) % Eos % (Auto) (0.0-4.0) % Baso % (Auto) (0.0-2.0) % Neut # (Auto) (1.8-7.0) K/uL Lymph # (Auto) (1.0-4.3) K/uL [place] # (Auto) (0.0-0.8) K/uL Eos # (Auto) (0.0-0.7) K/uL Baso # (Auto) (0.0-0.2) K/uL Neutrophils % (Manual) (50-75) % Lymphocytes % (Manual) (20-40) % Monocytes % (Manual) (0-10) % Eosinophils % (Manual) (0-4) % Toxic Granulation Platelet Estimate (NORMAL) Large Platelets Hypochromasia (manual) Puncture Site pCO2 (35-45) mm/Hg pO2 (80-100) mm/Hg HCO3 (21-28) mmol/L ABG pH (7.35-7.45) ABG Total CO2 (22-28) mmol/L ABG O2 Saturation (95-98) % ABG Base Excess (-2.0-3.0) mmol/L ABG Hemoglobin (11.7-17.4) g/dL ABG Carboxyhemoglobin (0.5-1.5) % POC ABG HHb (Measured) (0.0-5.0) % ABG Methemoglobin (0.0-3.0) % Oscar Test A-a O2 Difference mm/Hg Respiratory Index Hgb O2 Saturation (95.0-98.0) % Vent Mode Mechanical Rate FiO2 % Tidal Volume PEEP Sodium (132-148) mmol/L Potassium (3.6-5.2) mmol/L Chloride (98-107) mmol/L Carbon Dioxide (22-30) mmol/L Anion Gap (10-20) BUN (9-20) mg/dL Creatinine (0.8-1.5) mg/dL Est GFR ( Amer) Est GFR (Non-Af Amer) POC Glucose (mg/dL) 141 H (65-110) mg/dL Random Glucose (75-110) mg/dL Calcium (8.6-10.4) mg/dl Phosphorus (2.5-4.5) mg/dL Magnesium (1.6-2.3) mg/dL Total Bilirubin (0.2-1.3) mg/dL AST (17-59) U/L ALT (21-72) U/L Alkaline Phosphatase (38-126) U/L Total Protein (6.3-8.3) g/dL Albumin (3.5-5.0) g/dL Globulin (2.2-3.9) gm/dL Albumin/Globulin Ratio (1.0-2.1) Laboratory Results - last 24 hr 12/08/17 12/08/17 12/09/17 17:34 23:46 05:15 WBC RBC Hgb Hct MCV MCH MCHC RDW Plt Count MPV Neut % (Auto) Lymph % (Auto) [place] % (Auto) Eos % (Auto) Baso % (Auto) Neut # (Auto) Lymph # (Auto) [place] # (Auto) Eos # (Auto) Baso # (Auto) Neutrophils % (Manual) Lymphocytes % (Manual) Monocytes % (Manual) Eosinophils % (Manual) Toxic Granulation Platelet Estimate Large Platelets Hypochromasia (manual) Puncture Site Rr pCO2 49 H pO2 60 L HCO3 30.4 H ABG pH 7.43 ABG Total CO2 34.0 H ABG O2 Saturation 93.6 L ABG Base Excess 7.2 H ABG Hemoglobin 10.2 L ABG Carboxyhemoglobin 1.8 H POC ABG HHb (Measured) 6.2 H ABG Methemoglobin 0.9 Oscar Test Pos A-a O2 Difference 307.0 Respiratory Index 5.1 Hgb O2 Saturation 91.1 L Vent Mode Prvc Mechanical Rate 16 FiO2 60.0 Tidal Volume 550 PEEP 7 Sodium Potassium Chloride Carbon Dioxide Anion Gap BUN Creatinine Est GFR ( Amer) Est GFR (Non-Af Amer) POC Glucose (mg/dL) 141 H 137 H Random Glucose Calcium Phosphorus Magnesium Total Bilirubin AST ALT Alkaline Phosphatase Total Protein Albumin Globulin Albumin/Globulin Ratio 12/09/17 12/09/17 12/09/17 06:21 06:30 06:30 WBC 12.7 H RBC 3.57 L Hgb 9.8 L Hct 29.7 L MCV 83.0 MCH 27.5 MCHC 33.1 RDW 16.9 H Plt Count 183 MPV 9.9 Neut % (Auto) 83.1 H Lymph % (Auto) 8.2 L [place] % (Auto) 5.8 Eos % (Auto) 2.3 Baso % (Auto) 0.6 Neut # (Auto) 10.5 H Lymph # (Auto) 1.0 [place] # (Auto) 0.7 Eos # (Auto) 0.3 Baso # (Auto) 0.1 Neutrophils % (Manual) 85 H Lymphocytes % (Manual) 8 L Monocytes % (Manual) 4 Eosinophils % (Manual) 3 Toxic Granulation Present Platelet Estimate Normal Large Platelets Present Hypochromasia (manual) Slight Puncture Site pCO2 pO2 HCO3 ABG pH ABG Total CO2 ABG O2 Saturation ABG Base Excess ABG Hemoglobin ABG Carboxyhemoglobin POC ABG HHb (Measured) ABG Methemoglobin Oscar Test A-a O2 Difference Respiratory Index Hgb O2 Saturation Vent Mode Mechanical Rate FiO2 Tidal Volume PEEP Sodium 154 H Potassium 3.3 L Chloride 114 H Carbon Dioxide 33 H Anion Gap 10 BUN 38 H Creatinine 1.7 H Est GFR ( Amer) 48 Est GFR (Non-Af Amer) 40 POC Glucose (mg/dL) 166 H Random Glucose 169 H Calcium 7.7 L Phosphorus 3.0 Magnesium 2.8 H Total Bilirubin 0.4 AST 31 ALT 37 Alkaline Phosphatase 70 Total Protein 6.0 L Albumin 2.6 L Globulin 3.3 Albumin/Globulin Ratio 0.8 L 12/09/17 11:35 WBC RBC Hgb Hct MCV MCH MCHC RDW Plt Count MPV Neut % (Auto) Lymph % (Auto) [place] % (Auto) Eos % (Auto) Baso % (Auto) Neut # (Auto) Lymph # (Auto) [place] # (Auto) Eos # (Auto) Baso # (Auto) Neutrophils % (Manual) Lymphocytes % (Manual) Monocytes % (Manual) Eosinophils % (Manual) Toxic Granulation Platelet Estimate Large Platelets Hypochromasia (manual) Puncture Site pCO2 pO2 HCO3 ABG pH ABG Total CO2 ABG O2 Saturation ABG Base Excess ABG Hemoglobin ABG Carboxyhemoglobin POC ABG HHb (Measured) ABG Methemoglobin Oscar Test A-a O2 Difference Respiratory Index Hgb O2 Saturation Vent Mode Mechanical Rate FiO2 Tidal Volume PEEP Sodium Potassium Chloride Carbon Dioxide Anion Gap BUN Creatinine Est GFR ( Amer) Est GFR (Non-Af Amer) POC Glucose (mg/dL) 155 H Random Glucose Calcium Phosphorus Magnesium Total Bilirubin AST ALT Alkaline Phosphatase Total Protein Albumin Globulin Albumin/Globulin Ratio Fingerstick Blood Sugar Results: 155 Critical Care Progress Note - Nutrition Nutrition: Nutrition Category Date Time Status Heart Healthy Diet [DIET] Diets 11/30/17 Lunch Active <Nigel Rushing M - Last Filed: 12/09/17 20:35> CCU Objective - Vital Signs / Intake & Output Vital Signs (Last 4 hours): Vital Signs Pulse Resp BP Pulse Ox 12/09/17 18:59 85 20 110/68 95 12/09/17 17:59 81 20 127/65 96 12/09/17 17:04 72 17 96/49 L 100 12/09/17 17:00 66 15 71/32 L 98 Intake and Output (Last 8hrs): Intake & Output 12/09/17 12/09/17 12/09/17 06:59 14:59 22:59 Intake Total 1635.2 1828.5 687.0 Output Total 775 900 200 Balance 860.2 928.5 487.0 Weight 192 lb 14.4 oz Intake: IV 500 250.0 66.4 Intake, IV Amount 335.2 778.5 170.6 Left Medial Port Internal 500 Jugular Left Proximal Port 335.2 278.5 170.6 Internal Jugular Tube Feeding 400 400 250 Other 400 400 200 Output: Urine 775 900 200 Urethral (Singh) 775 900 200 Other: # Bowel Movements 0 0 - Medications Active Medications: Active Medications Generic Name Dose Route Start Last Admin Trade Name Freq PRN Reason Stop Dose Admin Acetaminophen 650 mg 12/06/17 09:30 12/08/17 11:38 Tylenol 650mg/20.3ml Solution Ud PO 650 mg Q6 PRN Administration Temperature Albuterol/Ipratropium 3 ml 12/03/17 14:00 12/09/17 13:12 Duoneb 3 Mg/0.5 Mg (3 Ml) Ud INH 3 ml RQ6 ABHIJEET Administration Ascorbic Acid 500 mg 12/05/17 10:00 12/09/17 09:45 Vitamin C 500 Mg Tab PO 500 mg DAILY ABHIJEET Administration Famotidine 20 mg 11/27/17 10:00 12/09/17 09:45 Pepcid PO 20 mg DAILY ABHIJEET Administration Heparin Sodium (Porcine) 5,000 units 12/09/17 14:00 12/09/17 13:44 Heparin SC 5,000 units Q8 ABHIJEET Administration Meropenem 500 mg/ Sodium 100 mls @ 100 mls/hr 12/06/17 14:00 12/09/17 13:44 Chloride IVPB 100 mls/hr Q8 ABHIJEET Administration Vancomycin/Sodium Chloride 1 gm in 200 mls @ 133.333 mls/hr 12/06/17 12:15 12:03 Vancomycin 1 Gm/Ns 200 Ml IVPB 12/11/17 13:31 133.333 mls/hr Q24H ABHIJEET Administration Dopamine HCl/Dextrose 400 mg in 250 mls @ 34.875 mls/hr 12/06/17 19:16 17:00 Dopamine 400mg/250ml D5w IV 10 mcg/kg/min .Q7H11M PRN 34.875 mls/hr TITRATE PER MD ORDER Titration Protocol 10 MCG/KG/MIN Insulin Aspart 0 unit 12/02/17 18:00 12/09/17 18:00 Novolog SC Not Given Q6H [facility] Protocol Multivitamins 1 tab 12/07/17 10:00 12/09/17 09:45 Hexavitamin PO 1 tab DAILY ABHIJEET Administration Tamsulosin HCl 0.4 mg 11/27/17 10:00 12/09/17 09:45 Flomax PO 0.4 mg DAILY ABHIJEET Administration Zinc Sulfate 220 mg 12/02/17 10:00 12/09/17 09:45 Zinc Sulfate 220 Mg Cap PO 220 mg DAILY ABHIJEET Administration - Patient Studies Lab Studies: Microbiology Studies 12/06/17 09:19 Gram Stain - Final Trachasp Sputum Culture - Final Methicillin Resistant S Aureus Lab Studies 12/09/17 12/09/17 12/09/17 Range/Units 17:34 11:35 06:30 WBC (4.8-10.8) K/uL RBC (4.40-5.90) Mil/uL Hgb (12.0-18.0) g/dL Hct (35.0-51.0) % MCV (80.0-94.0) fL MCH (27.0-31.0) pg MCHC (33.0-37.0) g/dL RDW (11.5-14.5) % Plt Count (130-400) K/uL MPV (7.2-11.7) fL Neut % (Auto) (50.0-75.0) % Lymph % (Auto) (20.0-40.0) % [place] % (Auto) (0.0-10.0) % Eos % (Auto) (0.0-4.0) % Baso % (Auto) (0.0-2.0) % Neut # (Auto) (1.8-7.0) K/uL Lymph # (Auto) (1.0-4.3) K/uL [place] # (Auto) (0.0-0.8) K/uL Eos # (Auto) (0.0-0.7) K/uL Baso # (Auto) (0.0-0.2) K/uL Neutrophils % (Manual) (50-75) % Lymphocytes % (Manual) (20-40) % Monocytes % (Manual) (0-10) % Eosinophils % (Manual) (0-4) % Toxic Granulation Platelet Estimate (NORMAL) Large Platelets Hypochromasia (manual) Puncture Site pCO2 (35-45) mm/Hg pO2 (80-100) mm/Hg HCO3 (21-28) mmol/L ABG pH (7.35-7.45) ABG Total CO2 (22-28) mmol/L ABG O2 Saturation (95-98) % ABG Base Excess (-2.0-3.0) mmol/L ABG Hemoglobin (11.7-17.4) g/dL ABG Carboxyhemoglobin (0.5-1.5) % POC ABG HHb (Measured) (0.0-5.0) % ABG Methemoglobin (0.0-3.0) % Oscar Test A-a O2 Difference mm/Hg Respiratory Index Hgb O2 Saturation (95.0-98.0) % Vent Mode Mechanical Rate FiO2 % Tidal Volume PEEP Sodium 154 H (132-148) mmol/L Potassium 3.3 L (3.6-5.2) mmol/L Chloride 114 H (98-107) mmol/L Carbon Dioxide 33 H (22-30) mmol/L Anion Gap 10 (10-20) BUN 38 H (9-20) mg/dL Creatinine 1.7 H (0.8-1.5) mg/dL Est GFR ( Amer) 48 Est GFR (Non-Af Amer) 40 POC Glucose (mg/dL) 147 H 155 H (65-110) mg/dL Random Glucose 169 H (75-110) mg/dL Calcium 7.7 L (8.6-10.4) mg/dl Phosphorus 3.0 (2.5-4.5) mg/dL Magnesium 2.8 H (1.6-2.3) mg/dL Total Bilirubin 0.4 (0.2-1.3) mg/dL AST 31 (17-59) U/L ALT 37 (21-72) U/L Alkaline Phosphatase 70 (38-126) U/L Total Protein 6.0 L (6.3-8.3) g/dL Albumin 2.6 L (3.5-5.0) g/dL Globulin 3.3 (2.2-3.9) gm/dL Albumin/Globulin Ratio 0.8 L (1.0-2.1) 12/09/17 12/09/17 12/09/17 Range/Units 06:30 06:21 05:15 WBC 12.7 H (4.8-10.8) K/uL RBC 3.57 L (4.40-5.90) Mil/uL Hgb 9.8 L (12.0-18.0) g/dL Hct 29.7 L (35.0-51.0) % MCV 83.0 (80.0-94.0) fL MCH 27.5 (27.0-31.0) pg MCHC 33.1 (33.0-37.0) g/dL RDW 16.9 H (11.5-14.5) % Plt Count 183 (130-400) K/uL MPV 9.9 (7.2-11.7) fL Neut % (Auto) 83.1 H (50.0-75.0) % Lymph % (Auto) 8.2 L (20.0-40.0) % [place] % (Auto) 5.8 (0.0-10.0) % Eos % (Auto) 2.3 (0.0-4.0) % Baso % (Auto) 0.6 (0.0-2.0) % Neut # (Auto) 10.5 H (1.8-7.0) K/uL Lymph # (Auto) 1.0 (1.0-4.3) K/uL [place] # (Auto) 0.7 (0.0-0.8) K/uL Eos # (Auto) 0.3 (0.0-0.7) K/uL Baso # (Auto) 0.1 (0.0-0.2) K/uL Neutrophils % (Manual) 85 H (50-75) % Lymphocytes % (Manual) 8 L (20-40) % Monocytes % (Manual) 4 (0-10) % Eosinophils % (Manual) 3 (0-4) % Toxic Granulation Present Platelet Estimate Normal (NORMAL) Large Platelets Present Hypochromasia (manual) Slight Puncture Site Rr pCO2 49 H (35-45) mm/Hg pO2 60 L (80-100) mm/Hg HCO3 30.4 H (21-28) mmol/L ABG pH 7.43 (7.35-7.45) ABG Total CO2 34.0 H (22-28) mmol/L ABG O2 Saturation 93.6 L (95-98) % ABG Base Excess 7.2 H (-2.0-3.0) mmol/L ABG Hemoglobin 10.2 L (11.7-17.4) g/dL ABG Carboxyhemoglobin 1.8 H (0.5-1.5) % POC ABG HHb (Measured) 6.2 H (0.0-5.0) % ABG Methemoglobin 0.9 (0.0-3.0) % Oscar Test Pos A-a O2 Difference 307.0 mm/Hg Respiratory Index 5.1 Hgb O2 Saturation 91.1 L (95.0-98.0) % Vent Mode Prvc Mechanical Rate 16 FiO2 60.0 % Tidal Volume 550 PEEP 7 Sodium (132-148) mmol/L Potassium (3.6-5.2) mmol/L Chloride (98-107) mmol/L Carbon Dioxide (22-30) mmol/L Anion Gap (10-20) BUN (9-20) mg/dL Creatinine (0.8-1.5) mg/dL Est GFR ( Amer) Est GFR (Non-Af Amer) POC Glucose (mg/dL) 166 H (65-110) mg/dL Random Glucose (75-110) mg/dL Calcium (8.6-10.4) mg/dl Phosphorus (2.5-4.5) mg/dL Magnesium (1.6-2.3) mg/dL Total Bilirubin (0.2-1.3) mg/dL AST (17-59) U/L ALT (21-72) U/L Alkaline Phosphatase (38-126) U/L Total Protein (6.3-8.3) g/dL Albumin (3.5-5.0) g/dL Globulin (2.2-3.9) gm/dL Albumin/Globulin Ratio (1.0-2.1) 12/08/17 Range/Units 23:46 WBC (4.8-10.8) K/uL RBC (4.40-5.90) Mil/uL Hgb (12.0-18.0) g/dL Hct (35.0-51.0) % MCV (80.0-94.0) fL MCH (27.0-31.0) pg MCHC (33.0-37.0) g/dL RDW (11.5-14.5) % Plt Count (130-400) K/uL MPV (7.2-11.7) fL Neut % (Auto) (50.0-75.0) % Lymph % (Auto) (20.0-40.0) % [place] % (Auto) (0.0-10.0) % Eos % (Auto) (0.0-4.0) % Baso % (Auto) (0.0-2.0) % Neut # (Auto) (1.8-7.0) K/uL Lymph # (Auto) (1.0-4.3) K/uL [place] # (Auto) (0.0-0.8) K/uL Eos # (Auto) (0.0-0.7) K/uL Baso # (Auto) (0.0-0.2) K/uL Neutrophils % (Manual) (50-75) % Lymphocytes % (Manual) (20-40) % Monocytes % (Manual) (0-10) % Eosinophils % (Manual) (0-4) % Toxic Granulation Platelet Estimate (NORMAL) Large Platelets Hypochromasia (manual) Puncture Site pCO2 (35-45) mm/Hg pO2 (80-100) mm/Hg HCO3 (21-28) mmol/L ABG pH (7.35-7.45) ABG Total CO2 (22-28) mmol/L ABG O2 Saturation (95-98) % ABG Base Excess (-2.0-3.0) mmol/L ABG Hemoglobin (11.7-17.4) g/dL ABG Carboxyhemoglobin (0.5-1.5) % POC ABG HHb (Measured) (0.0-5.0) % ABG Methemoglobin (0.0-3.0) % Oscar Test A-a O2 Difference mm/Hg Respiratory Index Hgb O2 Saturation (95.0-98.0) % Vent Mode Mechanical Rate FiO2 % Tidal Volume PEEP Sodium (132-148) mmol/L Potassium (3.6-5.2) mmol/L Chloride (98-107) mmol/L Carbon Dioxide (22-30) mmol/L Anion Gap (10-20) BUN (9-20) mg/dL Creatinine (0.8-1.5) mg/dL Est GFR ( Amer) Est GFR (Non-Af Amer) POC Glucose (mg/dL) 137 H (65-110) mg/dL Random Glucose (75-110) mg/dL Calcium (8.6-10.4) mg/dl Phosphorus (2.5-4.5) mg/dL Magnesium (1.6-2.3) mg/dL Total Bilirubin (0.2-1.3) mg/dL AST (17-59) U/L ALT (21-72) U/L Alkaline Phosphatase (38-126) U/L Total Protein (6.3-8.3) g/dL Albumin (3.5-5.0) g/dL Globulin (2.2-3.9) gm/dL Albumin/Globulin Ratio (1.0-2.1) Laboratory Results - last 24 hr 12/08/17 12/09/17 12/09/17 23:46 05:15 06:21 WBC RBC Hgb Hct MCV MCH MCHC RDW Plt Count MPV Neut % (Auto) Lymph % (Auto) [place] % (Auto) Eos % (Auto) Baso % (Auto) Neut # (Auto) Lymph # (Auto) [place] # (Auto) Eos # (Auto) Baso # (Auto) Neutrophils % (Manual) Lymphocytes % (Manual) Monocytes % (Manual) Eosinophils % (Manual) Toxic Granulation Platelet Estimate Large Platelets Hypochromasia (manual) Puncture Site Rr pCO2 49 H pO2 60 L HCO3 30.4 H ABG pH 7.43 ABG Total CO2 34.0 H ABG O2 Saturation 93.6 L ABG Base Excess 7.2 H ABG Hemoglobin 10.2 L ABG Carboxyhemoglobin 1.8 H POC ABG HHb (Measured) 6.2 H ABG Methemoglobin 0.9 Oscar Test Pos A-a O2 Difference 307.0 Respiratory Index 5.1 Hgb O2 Saturation 91.1 L Vent Mode Prvc Mechanical Rate 16 FiO2 60.0 Tidal Volume 550 PEEP 7 Sodium Potassium Chloride Carbon Dioxide Anion Gap BUN Creatinine Est GFR ( Amer) Est GFR (Non-Af Amer) POC Glucose (mg/dL) 137 H 166 H Random Glucose Calcium Phosphorus Magnesium Total Bilirubin AST ALT Alkaline Phosphatase Total Protein Albumin Globulin Albumin/Globulin Ratio 12/09/17 12/09/17 12/09/17 06:30 06:30 11:35 WBC 12.7 H RBC 3.57 L Hgb 9.8 L Hct 29.7 L MCV 83.0 MCH 27.5 MCHC 33.1 RDW 16.9 H Plt Count 183 MPV 9.9 Neut % (Auto) 83.1 H Lymph % (Auto) 8.2 L [place] % (Auto) 5.8 Eos % (Auto) 2.3 Baso % (Auto) 0.6 Neut # (Auto) 10.5 H Lymph # (Auto) 1.0 [place] # (Auto) 0.7 Eos # (Auto) 0.3 Baso # (Auto) 0.1 Neutrophils % (Manual) 85 H Lymphocytes % (Manual) 8 L Monocytes % (Manual) 4 Eosinophils % (Manual) 3 Toxic Granulation Present Platelet Estimate Normal Large Platelets Present Hypochromasia (manual) Slight Puncture Site pCO2 pO2 HCO3 ABG pH ABG Total CO2 ABG O2 Saturation ABG Base Excess ABG Hemoglobin ABG Carboxyhemoglobin POC ABG HHb (Measured) ABG Methemoglobin Oscar Test A-a O2 Difference Respiratory Index Hgb O2 Saturation Vent Mode Mechanical Rate FiO2 Tidal Volume PEEP Sodium 154 H Potassium 3.3 L Chloride 114 H Carbon Dioxide 33 H Anion Gap 10 BUN 38 H Creatinine 1.7 H Est GFR ( Amer) 48 Est GFR (Non-Af Amer) 40 POC Glucose (mg/dL) 155 H Random Glucose 169 H Calcium 7.7 L Phosphorus 3.0 Magnesium 2.8 H Total Bilirubin 0.4 AST 31 ALT 37 Alkaline Phosphatase 70 Total Protein 6.0 L Albumin 2.6 L Globulin 3.3 Albumin/Globulin Ratio 0.8 L 12/09/17 17:34 WBC RBC Hgb Hct MCV MCH MCHC RDW Plt Count MPV Neut % (Auto) Lymph % (Auto) [place] % (Auto) Eos % (Auto) Baso % (Auto) Neut # (Auto) Lymph # (Auto) [place] # (Auto) Eos # (Auto) Baso # (Auto) Neutrophils % (Manual) Lymphocytes % (Manual) Monocytes % (Manual) Eosinophils % (Manual) Toxic Granulation Platelet Estimate Large Platelets Hypochromasia (manual) Puncture Site pCO2 pO2 HCO3 ABG pH ABG Total CO2 ABG O2 Saturation ABG Base Excess ABG Hemoglobin ABG Carboxyhemoglobin POC ABG HHb (Measured) ABG Methemoglobin Oscar Test A-a O2 Difference Respiratory Index Hgb O2 Saturation Vent Mode Mechanical Rate FiO2 Tidal Volume PEEP Sodium Potassium Chloride Carbon Dioxide Anion Gap BUN Creatinine Est GFR ( Amer) Est GFR (Non-Af Amer) POC Glucose (mg/dL) 147 H Random Glucose Calcium Phosphorus Magnesium Total Bilirubin AST ALT Alkaline Phosphatase Total Protein Albumin Globulin Albumin/Globulin Ratio Critical Care Progress Note - Nutrition Nutrition: Nutrition Category Date Time Status Heart Healthy Diet [DIET] Diets 11/30/17 Lunch Active Attending/Attestation - Attestation I have personally seen and examined this patient.: Yes I have fully participated in the care of the patient.: Yes I have reviewed all pertinent clinical information: Yes Notes (Text): 12/09/17 20:35 Today: December The Patient was seen and examined at the bedside, Medical records reviewed, and management issues were discussed and formulated with the house staff. I have reviewed all the relevant clinical, laboratory, hemodynamic, radiographic data and medications Events reviewed Pain issues, skin care, head of the bed elevation, glycemic control were addressed. Agree with above resident's assessment and treatment plans of care as transcribed in Dr. Biswas note.
--- NOTE | 2017-12-09 17:54 | CP.PCM.PN ---
Subjective - Date & Time of Evaluation Date of Evaluation: 12/09/17 Time of Evaluation: 08:00 - Subjective Subjective: Pt is awake, alert and follows commands. Still intubated. Objective - Vital Signs/Intake and Output Vital Signs (last 24 hours): Temp Pulse Resp BP Pulse Ox 98.5 F 72 17 96/49 L 100 12/09/17 16:00 12/09/17 17:04 12/09/17 17:04 12/09/17 17:04 12/09/17 17:04 Intake and Output: 12/09/17 12/09/17 06:59 18:59 Intake Total 2174.8 1845.9 Output Total 1255 900 Balance 919.8 945.9 - Medications Medications: Current Medications Acetaminophen (Tylenol 650mg/20.3ml Solution Ud) 650 mg PO Q6 PRN PRN Reason: Temperature Last Admin: 12/08/17 11:38 Dose: 650 mg Albuterol/Ipratropium (Duoneb 3 Mg/0.5 Mg (3 Ml) Ud) 3 ml INH RQ6 [facility] Last Admin: 12/09/17 13:12 Dose: 3 ml Ascorbic Acid (Vitamin C 500 Mg Tab) 500 mg PO DAILY [facility] Last Admin: 12/09/17 09:45 Dose: 500 mg Famotidine (Pepcid) 20 mg PO DAILY [facility] Last Admin: 12/09/17 09:45 Dose: 20 mg Heparin Sodium (Porcine) (Heparin) 5,000 units SC Q8 [facility] Last Admin: 12/09/17 13:44 Dose: 5,000 units Meropenem 500 mg/ Sodium (Chloride) 100 mls @ 100 mls/hr IVPB Q8 [facility] Last Admin: 12/09/17 13:44 Dose: 100 mls/hr Vancomycin/Sodium Chloride (Vancomycin 1 Gm/Ns 200 Ml) 1 gm in 200 mls @ 133.333 mls/hr IVPB Q24H [facility] Stop: 12/11/17 13:31 Last Admin: 12/09/17 12:03 Dose: 133.333 mls/hr Dopamine HCl/Dextrose (Dopamine 400mg/250ml D5w) 400 mg in 250 mls @ 34.875 mls /hr IV .Q7H11M PRN; Protocol; 10 MCG/KG/MIN PRN Reason: TITRATE PER MD ORDER Last Titration: 12/09/17 17:00 Dose: 10 mcg/kg/min, 34.875 mls/hr Insulin Aspart (Novolog) 0 unit SC Q6H [facility] PRN Reason: Protocol Last Admin: 12/09/17 12:02 Dose: 2 unit Multivitamins (Hexavitamin) 1 tab PO DAILY [facility] Last Admin: 12/09/17 09:45 Dose: 1 tab Tamsulosin HCl (Flomax) 0.4 mg PO DAILY [facility] Last Admin: 12/09/17 09:45 Dose: 0.4 mg Zinc Sulfate (Zinc Sulfate 220 Mg Cap) 220 mg PO DAILY [facility] Last Admin: 12/09/17 09:45 Dose: 220 mg - Labs Labs: 12/09/17 06:30 12/09/17 06:30 PT 16.6 SECONDS (9.7-12.2) H 11/26/17 17:31 INR 1.5 11/26/17 17:31 APTT 31 SECONDS (21-34) 11/26/17 17:31 - Constitutional Appears: Non-toxic, Chronically Ill - Head Exam Head Exam: NORMOCEPHALIC - ENT Exam ENT Exam: Mucous Membranes Dry - Neck Exam Neck Exam: absent: Lymphadenopathy - Respiratory Exam Respiratory Exam: Decreased Breath Sounds, Rhonchi - Cardiovascular Exam Cardiovascular Exam: REGULAR RHYTHM - GI/Abdominal Exam GI & Abdominal Exam: Distended - Rectal Exam Rectal Exam: Deferred Assessment and Plan (1) Acute urinary retention Status: Acute (2) Fever Status: Acute (3) Sepsis associated hypotension Status: Acute (4) Pneumonia Status: Acute (5) Respiratory failure Status: Acute
[2017-12-10] MEDS: (Novolog) Insulin Aspart, Recombinant 100 u/ml 10 ml vial SC SCH ×4 (00:28→18:10)
[2017-12-10] MEDS: Albuterol-Ipratrop 3 mg / 0.5 (3 ml) UD INH SCH ×4 (01:39→20:02)
[2017-12-10] MEDS: Meropenem 500 MG in Sodium Chloride 0.9% 100 ML IVPB SCH ×3 (05:26→21:38)
[2017-12-10 05:44] LABS: ABG ALLEN TEST POS; ARTERIAL BLOOD GAS O2 SAT 98.1 % (95-98); ARTERIAL BLOOD GAS PCO2 52 mm/Hg (35-45); ARTERIAL BLOOD GAS PH 7.39 (7.35-7.45); ARTERIAL BLOOD GAS PO2 94 mm/Hg (80-100); ARTERIAL BLOOD GAS TCO2 33.1 mmol/L (22-28)
[2017-12-10 06:55] LABS: BASO # 0.1 K/uL (0.0-0.2); BASO % 0.9 % (0.0-2.0); EOS # 0.3 K/uL (0.0-0.7); EOS % 2.8 % (0.0-4.0); HEMOGLOBIN 9.6 g/dL (12.0-18.0); LYMPH # 1.2 K/uL (1.0-4.3); LYMPH % 11.4 % (20.0-40.0); MEAN CELL VOLUME 84.1 fL (80.0-94.0); MEAN CORPUSCULAR HEMOGLOBIN 28.2 pg (27.0-31.0); MEAN CORPUSCULAR HGB CONC 33.6 g/dL (33.0-37.0); MEAN PLATELET VOLUME 10.1 fL (7.2-11.7); MONO # 0.5 K/uL (0.0-0.8); MONO % 4.9 % (0.0-10.0); NEUT # 8.3 K/uL (1.8-7.0); RBC 3.39 Mil/uL (4.40-5.90); RED CELL DISTRIBUTION WIDTH 17.1 % (11.5-14.5); WHITE BLOOD COUNT 10.4 K/uL (4.8-10.8)
[2017-12-10] MEDS: DOPamine 400mg/250ml D5W 400 MG/250 ML BAG IV PRN ×3 (07:30→15:02)
[2017-12-10 07:36] LABS: ALB/GLOB RATIO 0.8 (1.0-2.1); ALBUMIN 2.6 g/dL (3.5-5.0); ALT/SGPT 52 U/L (21-72); AST/SGOT 39 U/L (17-59); BLOOD UREA NITROGEN 39 mg/dL (9-20); CALCIUM 7.8 mg/dl (8.6-10.4); GFR AFRICAN-AMERICAN > 60; GFR NON-AFRICAN AMERICAN 54; MAGNESIUM 2.6 mg/dL (1.6-2.3)
[2017-12-10] MEDS: Multiple Vitamins Tab PO SCH (10:10)
--- NOTE | 2017-12-10 10:23 | RAD ---
HISTORY: SOB COMPARISON: 12/09/2017 FINDINGS: LUNGS: Diffuse bilateral pulmonary opacity with upper lobe predominance, possibly interstitial infiltrate. Vaguely reticular pattern. No change from prior. This does represent gradual interval change from earlier examination of 12/03/2017. PLEURA: No significant pleural effusion identified, no pneumothorax apparent. CARDIOVASCULAR: ETT, NG tube and left IJ multi lumen central venous catheter unchanged. Mild congestive change. OSSEOUS STRUCTURES: No significant abnormalities. VISUALIZED UPPER ABDOMEN: Normal. OTHER FINDINGS: None. IMPRESSION: Persistent diffuse opacity with upper lobe predominance, possibly interstitial. No focal consolidation. Mild congestive change. Lines and tubes unchanged.
--- NOTE | 2017-12-10 12:11 | CP.PCM.PN ---
Subjective - Date & Time of Evaluation Date of Evaluation: 12/10/17 Time of Evaluation: 12:08 - Subjective Subjective: Patient remain on respiratory rate Electrolyte and lab test reviewed and noted serum sodium coming down nicely. Vital sign noted Objective - Vital Signs/Intake and Output Vital Signs (last 24 hours): Temp Pulse Resp BP Pulse Ox 98.5 F 79 18 86/50 L 99 12/10/17 08:00 12/10/17 11:00 12/10/17 11:00 12/10/17 10:59 12/10/17 11:00 Intake and Output: 12/10/17 12/10/17 06:59 18:59 Intake Total 2096.2 48.1 Output Total 1450 Balance 646.2 48.1 - Medications Medications: Current Medications Acetaminophen (Tylenol 650mg/20.3ml Solution Ud) 650 mg PO Q6 PRN PRN Reason: Temperature Last Admin: 12/08/17 11:38 Dose: 650 mg Albuterol/Ipratropium (Duoneb 3 Mg/0.5 Mg (3 Ml) Ud) 3 ml INH RQ6 [facility] Last Admin: 12/10/17 07:47 Dose: 3 ml Ascorbic Acid (Vitamin C 500 Mg Tab) 500 mg PO DAILY [facility] Last Admin: 12/10/17 10:09 Dose: 500 mg Famotidine (Pepcid) 20 mg PO DAILY [facility] Last Admin: 12/10/17 10:09 Dose: 20 mg Heparin Sodium (Porcine) (Heparin) 5,000 units SC Q8 [facility] Last Admin: 12/10/17 05:25 Dose: 5,000 units Meropenem 500 mg/ Sodium (Chloride) 100 mls @ 100 mls/hr IVPB Q8 [facility] Last Admin: 12/10/17 05:26 Dose: 100 mls/hr Vancomycin/Sodium Chloride (Vancomycin 1 Gm/Ns 200 Ml) 1 gm in 200 mls @ 133.333 mls/hr IVPB Q24H [facility] Stop: 12/11/17 13:31 Last Admin: 12/09/17 12:03 Dose: 133.333 mls/hr Dopamine HCl/Dextrose (Dopamine 400mg/250ml D5w) 400 mg in 250 mls @ 34.875 mls /hr IV .Q7H11M PRN; Protocol; 10 MCG/KG/MIN PRN Reason: TITRATE PER MD ORDER Last Admin: 12/10/17 07:30 Dose: 10 mcg/kg/min, 34.875 mls/hr Insulin Aspart (Novolog) 0 unit SC Q6H [facility] PRN Reason: Protocol Last Admin: 12/10/17 05:27 Dose: Not Given Multivitamins (Hexavitamin) 1 tab PO DAILY [facility] Last Admin: 12/10/17 10:10 Dose: 1 tab Tamsulosin HCl (Flomax) 0.4 mg PO DAILY [facility] Last Admin: 12/10/17 10:10 Dose: 0.4 mg Zinc Sulfate (Zinc Sulfate 220 Mg Cap) 220 mg PO DAILY [facility] Last Admin: 12/10/17 10:09 Dose: 220 mg - Labs Labs: 12/10/17 06:50 12/10/17 06:50 PT 16.6 SECONDS (9.7-12.2) H 11/26/17 17:31 INR 1.5 11/26/17 17:31 APTT 31 SECONDS (21-34) 11/26/17 17:31 - Constitutional Appears: No Acute Distress - ENT Exam ENT Exam: Mucous Membranes Moist - Respiratory Exam Respiratory Exam: Rhonchi. absent: Chest Wall Tenderness - Cardiovascular Exam Cardiovascular Exam: absent: Gallop, JVD, Rubs - GI/Abdominal Exam GI & Abdominal Exam: Soft, Normal Bowel Sounds - Extremities Exam Extremities Exam: absent: Calf Tenderness - Back Exam Back Exam: absent: CVA tenderness (L), CVA tenderness (R) - Neurological Exam Neurological Exam: Altered - Psychiatric Exam Psychiatric exam: Flat Affect - Skin Skin Exam: absent: Cyanosis Assessment and Plan (1) CHF exacerbation Status: Acute (2) Hypernatremia Assessment & Plan: Hyponatremia serum sodium coming down nicely the last serum sodium 147, down on the intake of fluids through the GT tube make it every 8 hours. Acute kidney injury appeared to be improving The rest of the problem including respiratory failure and sepsis syndrome as per primary team in the intensive care unit and antibiotics as per renal dosing which has been improving Status: Acute (3) Leukocytosis Status: Acute (4) Pneumonia Status: Acute (5) Respiratory failure Status: Acute (6) Acute kidney injury Status: Acute
[2017-12-10] MEDS: Vancomycin 1 gm/NS 200 ml 1 GM/200 ML BAG IVPB SCH (12:26)
--- NOTE | 2017-12-10 13:08 | CP.CCUPN ---
<Rick Biswas - Last Filed: 12/10/17 13:06> CCU Subjective - Physician Review Subjective (Free Text): Patient seen and examined at bedside intubated continues to require dopamine for hypotension/bradycardia Brought to ER on 11/26/17 via ambulance from [facility] for SOB and hypotension. Subsequently admitted to the medical service. [employer]UM [employer]ATER called on for respiratory arrest. Pt was intubated and transferred to ICU. Today pt seen and examined bedside. Pt is awake, alert and follows commands. Still intubated. PMhx: COPD, CHF, CVA, HTN, BPH Shx: vertebral fusion, PEG Allergies: ASA, keterolac, NSAIDs Social: denied (chart review) Family hx: (denied chart review) Neuro: prior CVA Cardio: HTN (Bruno) continue CVP monitoring consider HARLEY Pulm: Asthma, COPD, hypoxia intubated - increase FIO2 70%, RR 16, Tv 550, PEEP 8 septic shock possible 2/2 MRSA pneumonia vanco 1gm/meropenem 1gm duoneb CT angio was negative for PE GI: no acute issues Renal/Uro: BPH continue flomax 0.4mg QD (Horton) Endo: no acute issues Electrolytes: hypernatremia, hypokalemia continue 200cc free water Q8hr kdur ID: Septic shock, MRSA + sputum culture (Mangia) vanco 1gm meropenem dopamine Skin: pressure ulcer Vitamin C zinc sulfate PPx: pepcid 20mg QD Heparin 5,000 units full code Next of kin: Jessica Marin () CCU Objective - Vital Signs / Intake & Output Vital Signs (Last 4 hours): Vital Signs Temp Pulse Resp BP Pulse Ox 12/10/17 12:00 98.5 F 12/10/17 11:59 78 18 108/60 99 12/10/17 11:03 77 19 102/57 L 99 12/10/17 11:00 79 18 99 12/10/17 10:59 79 17 86/50 L 100 12/10/17 09:59 70 20 102/55 L 99 Intake and Output (Last 8hrs): Intake & Output 12/09/17 12/10/17 12/10/17 22:59 06:59 14:59 Intake Total 1425.0 1273.4 48.1 Output Total 600 1050 Balance 825.0 223.4 48.1 Weight 190 lb 11.2 oz Intake: IV 250.0 201.9 48.1 Intake, IV Amount 375.0 271.5 Left Medial Port Internal 100 Jugular Left Proximal Port 275.0 271.5 Internal Jugular Tube Feeding 400 400 Other 400 400 Output: Urine 600 1050 Urethral (Singh) 600 1050 - Physical Exam Head: Positive for: Atraumatic, Normocephalic Pupils: Positive for: PERRL Mouth: Positive for: Moist Mucous Membranes Respiratory/Chest: Positive for: Other (intubated) Abdomen: Positive for: Normal Bowel Sounds. Negative for: Tenderness, Distention, Peritoneal Signs Psychiatric: Positive for: Alert, Oriented x 3 - Medications Active Medications: Active Medications Generic Name Dose Route Start Last Admin Trade Name Freq PRN Reason Stop Dose Admin Acetaminophen 650 mg 12/06/17 09:30 12/08/17 11:38 Tylenol 650mg/20.3ml Solution Ud PO 650 mg Q6 PRN Administration Temperature Albuterol/Ipratropium 3 ml 12/03/17 14:00 12/10/17 07:47 Duoneb 3 Mg/0.5 Mg (3 Ml) Ud INH 3 ml RQ6 ABHIJEET Administration Ascorbic Acid 500 mg 12/05/17 10:00 12/10/17 10:09 Vitamin C 500 Mg Tab PO 500 mg DAILY ABHIJEET Administration Famotidine 20 mg 11/27/17 10:00 12/10/17 10:09 Pepcid PO 20 mg DAILY ABHIJEET Administration Heparin Sodium (Porcine) 5,000 units 12/09/17 14:00 12/10/17 05:25 Heparin SC 5,000 units Q8 ABHIJEET Administration Meropenem 500 mg/ Sodium 100 mls @ 100 mls/hr 12/06/17 14:00 12/10/17 05:26 Chloride IVPB 100 mls/hr Q8 ABHIJEET Administration Vancomycin/Sodium Chloride 1 gm in 200 mls @ 133.333 mls/hr 12/06/17 12:15 12:26 Vancomycin 1 Gm/Ns 200 Ml IVPB 12/11/17 13:31 133.333 mls/hr Q24H ABHIJEET Administration Dopamine HCl/Dextrose 400 mg in 250 mls @ 34.875 mls/hr 12/06/17 19:16 07:30 Dopamine 400mg/250ml D5w IV 10 mcg/kg/min .Q7H11M PRN 34.875 mls/hr TITRATE PER MD ORDER Administration Protocol 10 MCG/KG/MIN Insulin Aspart 0 unit 12/02/17 18:00 12/10/17 12:25 Novolog SC 2 unit Q6H ABHIJEET Administration Protocol Multivitamins 1 tab 12/07/17 10:00 12/10/17 10:10 Hexavitamin PO 1 tab DAILY ABHIJEET Administration Tamsulosin HCl 0.4 mg 11/27/17 10:00 12/10/17 10:10 Flomax PO 0.4 mg DAILY ABHIJEET Administration Zinc Sulfate 220 mg 12/02/17 10:00 12/10/17 10:09 Zinc Sulfate 220 Mg Cap PO 220 mg DAILY ABHIJEET Administration - Patient Studies Lab Studies: Microbiology Studies 12/06/17 09:19 Gram Stain - Final Trachasp Sputum Culture - Final Methicillin Resistant S Aureus Lab Studies 12/10/17 12/10/17 12/10/17 Range/Units 11:46 11:09 06:50 WBC (4.8-10.8) K/uL RBC (4.40-5.90) Mil/uL Hgb (12.0-18.0) g/dL Hct (35.0-51.0) % MCV (80.0-94.0) fL MCH (27.0-31.0) pg MCHC (33.0-37.0) g/dL RDW (11.5-14.5) % Plt Count (130-400) K/uL MPV (7.2-11.7) fL Neut % (Auto) (50.0-75.0) % Lymph % (Auto) (20.0-40.0) % [place] % (Auto) (0.0-10.0) % Eos % (Auto) (0.0-4.0) % Baso % (Auto) (0.0-2.0) % Neut # (Auto) (1.8-7.0) K/uL Lymph # (Auto) (1.0-4.3) K/uL [place] # (Auto) (0.0-0.8) K/uL Eos # (Auto) (0.0-0.7) K/uL Baso # (Auto) (0.0-0.2) K/uL Puncture Site pCO2 (35-45) mm/Hg pO2 (80-100) mm/Hg HCO3 (21-28) mmol/L ABG pH (7.35-7.45) ABG Total CO2 (22-28) mmol/L ABG O2 Saturation (95-98) % ABG Base Excess (-2.0-3.0) mmol/L Oscar Test ABG Potassium (3.6-5.2) mmol/L A-a O2 Difference mm/Hg Respiratory Index Sodium 147 (132-148) mmol/l Chloride 109 H (98-107) mmol/L Glucose (75-110) mg/dl Lactate (0.7-2.1) mmol/L Vent Mode Mechanical Rate FiO2 % Tidal Volume PEEP Potassium 3.6 (3.6-5.2) mmol/L Carbon Dioxide 33 H (22-30) mmol/L Anion Gap 9 L (10-20) BUN 39 H (9-20) mg/dL Creatinine 1.3 (0.8-1.5) mg/dL Est GFR ( Amer) > 60 Est GFR (Non-Af Amer) 54 POC Glucose (mg/dL) 175 H (65-110) mg/dL Random Glucose 156 H (75-110) mg/dL Calcium 7.8 L (8.6-10.4) mg/dl Phosphorus 3.5 (2.5-4.5) mg/dL Magnesium 2.6 H (1.6-2.3) mg/dL Total Bilirubin 0.4 (0.2-1.3) mg/dL AST 39 (17-59) U/L ALT 52 (21-72) U/L Alkaline Phosphatase 73 (38-126) U/L Total Protein 5.9 L (6.3-8.3) g/dL Albumin 2.6 L (3.5-5.0) g/dL Globulin 3.4 (2.2-3.9) gm/dL Albumin/Globulin Ratio 0.8 L (1.0-2.1) Arterial Blood Potassium (3.6-5.2) mmol/L Vancomycin Trough 17.4 H (5.0-10.0) ug/mL 12/10/17 12/10/17 12/10/17 Range/Units 06:50 05:21 05:18 WBC 10.4 (4.8-10.8) K/uL RBC 3.39 L (4.40-5.90) Mil/uL Hgb 9.6 L (12.0-18.0) g/dL Hct 28.5 L (35.0-51.0) % MCV 84.1 (80.0-94.0) fL MCH 28.2 (27.0-31.0) pg MCHC 33.6 (33.0-37.0) g/dL RDW 17.1 H (11.5-14.5) % Plt Count 181 (130-400) K/uL MPV 10.1 (7.2-11.7) fL Neut % (Auto) 80.0 H (50.0-75.0) % Lymph % (Auto) 11.4 L (20.0-40.0) % [place] % (Auto) 4.9 (0.0-10.0) % Eos % (Auto) 2.8 (0.0-4.0) % Baso % (Auto) 0.9 (0.0-2.0) % Neut # (Auto) 8.3 H (1.8-7.0) K/uL Lymph # (Auto) 1.2 (1.0-4.3) K/uL [place] # (Auto) 0.5 (0.0-0.8) K/uL Eos # (Auto) 0.3 (0.0-0.7) K/uL Baso # (Auto) 0.1 (0.0-0.2) K/uL Puncture Site Rr pCO2 52 H (35-45) mm/Hg pO2 94 (80-100) mm/Hg HCO3 29.0 H (21-28) mmol/L ABG pH 7.39 (7.35-7.45) ABG Total CO2 33.1 H (22-28) mmol/L ABG O2 Saturation 98.1 H (95-98) % ABG Base Excess 5.2 H (-2.0-3.0) mmol/L Oscar Test Pos ABG Potassium 3.5 L (3.6-5.2) mmol/L A-a O2 Difference 340.0 mm/Hg Respiratory Index 3.6 Sodium 149.0 H (132-148) mmol/l Chloride 113.0 H (98-107) mmol/L Glucose 182 H (75-110) mg/dl Lactate 1.2 (0.7-2.1) mmol/L Vent Mode Prvc Mechanical Rate 16 FiO2 70.0 % Tidal Volume 550 PEEP 5 Potassium (3.6-5.2) mmol/L Carbon Dioxide (22-30) mmol/L Anion Gap (10-20) BUN (9-20) mg/dL Creatinine (0.8-1.5) mg/dL Est GFR ( Amer) Est GFR (Non-Af Amer) POC Glucose (mg/dL) 188 H (65-110) mg/dL Random Glucose (75-110) mg/dL Calcium (8.6-10.4) mg/dl Phosphorus (2.5-4.5) mg/dL Magnesium (1.6-2.3) mg/dL Total Bilirubin (0.2-1.3) mg/dL AST (17-59) U/L ALT (21-72) U/L Alkaline Phosphatase (38-126) U/L Total Protein (6.3-8.3) g/dL Albumin (3.5-5.0) g/dL Globulin (2.2-3.9) gm/dL Albumin/Globulin Ratio (1.0-2.1) Arterial Blood Potassium 3.5 L (3.6-5.2) mmol/L Vancomycin Trough (5.0-10.0) ug/mL 12/09/17 12/09/17 Range/Units 23:54 17:34 WBC (4.8-10.8) K/uL RBC (4.40-5.90) Mil/uL Hgb (12.0-18.0) g/dL Hct (35.0-51.0) % MCV (80.0-94.0) fL MCH (27.0-31.0) pg MCHC (33.0-37.0) g/dL RDW (11.5-14.5) % Plt Count (130-400) K/uL MPV (7.2-11.7) fL Neut % (Auto) (50.0-75.0) % Lymph % (Auto) (20.0-40.0) % [place] % (Auto) (0.0-10.0) % Eos % (Auto) (0.0-4.0) % Baso % (Auto) (0.0-2.0) % Neut # (Auto) (1.8-7.0) K/uL Lymph # (Auto) (1.0-4.3) K/uL [place] # (Auto) (0.0-0.8) K/uL Eos # (Auto) (0.0-0.7) K/uL Baso # (Auto) (0.0-0.2) K/uL Puncture Site pCO2 (35-45) mm/Hg pO2 (80-100) mm/Hg HCO3 (21-28) mmol/L ABG pH (7.35-7.45) ABG Total CO2 (22-28) mmol/L ABG O2 Saturation (95-98) % ABG Base Excess (-2.0-3.0) mmol/L Oscar Test ABG Potassium (3.6-5.2) mmol/L A-a O2 Difference mm/Hg Respiratory Index Sodium (132-148) mmol/l Chloride (98-107) mmol/L Glucose (75-110) mg/dl Lactate (0.7-2.1) mmol/L Vent Mode Mechanical Rate FiO2 % Tidal Volume PEEP Potassium (3.6-5.2) mmol/L Carbon Dioxide (22-30) mmol/L Anion Gap (10-20) BUN (9-20) mg/dL Creatinine (0.8-1.5) mg/dL Est GFR ( Amer) Est GFR (Non-Af Amer) POC Glucose (mg/dL) 144 H 147 H (65-110) mg/dL Random Glucose (75-110) mg/dL Calcium (8.6-10.4) mg/dl Phosphorus (2.5-4.5) mg/dL Magnesium (1.6-2.3) mg/dL Total Bilirubin (0.2-1.3) mg/dL AST (17-59) U/L ALT (21-72) U/L Alkaline Phosphatase (38-126) U/L Total Protein (6.3-8.3) g/dL Albumin (3.5-5.0) g/dL Globulin (2.2-3.9) gm/dL Albumin/Globulin Ratio (1.0-2.1) Arterial Blood Potassium (3.6-5.2) mmol/L Vancomycin Trough (5.0-10.0) ug/mL Laboratory Results - last 24 hr 12/09/17 12/09/17 12/10/17 17:34 23:54 05:18 WBC RBC Hgb Hct MCV MCH MCHC RDW Plt Count MPV Neut % (Auto) Lymph % (Auto) [place] % (Auto) Eos % (Auto) Baso % (Auto) Neut # (Auto) Lymph # (Auto) [place] # (Auto) Eos # (Auto) Baso # (Auto) Puncture Site pCO2 pO2 HCO3 ABG pH ABG Total CO2 ABG O2 Saturation ABG Base Excess Oscar Test ABG Potassium A-a O2 Difference Respiratory Index Sodium Chloride Glucose Lactate Vent Mode Mechanical Rate FiO2 Tidal Volume PEEP Potassium Carbon Dioxide Anion Gap BUN Creatinine Est GFR ( Amer) Est GFR (Non-Af Amer) POC Glucose (mg/dL) 147 H 144 H 188 H Random Glucose Calcium Phosphorus Magnesium Total Bilirubin AST ALT Alkaline Phosphatase Total Protein Albumin Globulin Albumin/Globulin Ratio Arterial Blood Potassium Vancomycin Trough 12/10/17 12/10/17 12/10/17 05:21 06:50 06:50 WBC 10.4 RBC 3.39 L Hgb 9.6 L Hct 28.5 L MCV 84.1 MCH 28.2 MCHC 33.6 RDW 17.1 H Plt Count 181 MPV 10.1 Neut % (Auto) 80.0 H Lymph % (Auto) 11.4 L [place] % (Auto) 4.9 Eos % (Auto) 2.8 Baso % (Auto) 0.9 Neut # (Auto) 8.3 H Lymph # (Auto) 1.2 [place] # (Auto) 0.5 Eos # (Auto) 0.3 Baso # (Auto) 0.1 Puncture Site Rr pCO2 52 H pO2 94 HCO3 29.0 H ABG pH 7.39 ABG Total CO2 33.1 H ABG O2 Saturation 98.1 H ABG Base Excess 5.2 H Oscar Test Pos ABG Potassium 3.5 L A-a O2 Difference 340.0 Respiratory Index 3.6 Sodium 149.0 H 147 Chloride 113.0 H 109 H Glucose 182 H Lactate 1.2 Vent Mode Prvc Mechanical Rate 16 FiO2 70.0 Tidal Volume 550 PEEP 5 Potassium 3.6 Carbon Dioxide 33 H Anion Gap 9 L BUN 39 H Creatinine 1.3 Est GFR ( Amer) > 60 Est GFR (Non-Af Amer) 54 POC Glucose (mg/dL) Random Glucose 156 H Calcium 7.8 L Phosphorus 3.5 Magnesium 2.6 H Total Bilirubin 0.4 AST 39 ALT 52 Alkaline Phosphatase 73 Total Protein 5.9 L Albumin 2.6 L Globulin 3.4 Albumin/Globulin Ratio 0.8 L Arterial Blood Potassium 3.5 L Vancomycin Trough 12/10/17 12/10/17 11:09 11:46 WBC RBC Hgb Hct MCV MCH MCHC RDW Plt Count MPV Neut % (Auto) Lymph % (Auto) [place] % (Auto) Eos % (Auto) Baso % (Auto) Neut # (Auto) Lymph # (Auto) [place] # (Auto) Eos # (Auto) Baso # (Auto) Puncture Site pCO2 pO2 HCO3 ABG pH ABG Total CO2 ABG O2 Saturation ABG Base Excess Oscar Test ABG Potassium A-a O2 Difference Respiratory Index Sodium Chloride Glucose Lactate Vent Mode Mechanical Rate FiO2 Tidal Volume PEEP Potassium Carbon Dioxide Anion Gap BUN Creatinine Est GFR ( Amer) Est GFR (Non-Af Amer) POC Glucose (mg/dL) 175 H Random Glucose Calcium Phosphorus Magnesium Total Bilirubin AST ALT Alkaline Phosphatase Total Protein Albumin Globulin Albumin/Globulin Ratio Arterial Blood Potassium Vancomycin Trough 17.4 H Fingerstick Blood Sugar Results: 175 Critical Care Progress Note - Nutrition Nutrition: Nutrition Category Date Time Status Heart Healthy Diet [DIET] Diets 11/30/17 Lunch Active <Vladislav Nunez - Last Filed: 12/11/17 18:50> CCU Subjective - Physician Review Critical Care Time Spent (in minutes): 35 CCU Objective - Vital Signs / Intake & Output Vital Signs (Last 4 hours): Vital Signs Temp Pulse Resp BP Pulse Ox 12/11/17 18:23 79 22 103/55 L 96 12/11/17 18:00 78 19 97 12/11/17 17:59 78 19 114/58 L 97 12/11/17 17:00 81 22 96 12/11/17 16:59 79 23 103/55 L 96 12/11/17 16:00 98.8 F 85 19 111/63 96 12/11/17 15:59 85 21 111/63 96 12/11/17 15:00 84 20 99 12/11/17 14:59 84 22 107/59 L 99 Intake and Output (Last 8hrs): Intake & Output 12/11/17 12/11/17 12/11/17 06:59 14:59 22:59 Intake Total 685.5 1285.2 617.6 Output Total 515 780 400 Balance 170.5 505.2 217.6 Weight 189 lb 11.2 oz Intake: IV 250 250 Intake, IV Amount 285.5 635.2 167.6 Left Proximal Port 285.5 335.2 167.6 Internal Jugular Right Distal Port 300 Tube Feeding 400 400 200 Output: Urine 515 780 400 Urethral (Singh) 515 780 400 Other: # Bowel Movements 1 - Medications Active Medications: Active Medications Generic Name Dose Route Start Last Admin Trade Name Freq PRN Reason Stop Dose Admin Acetaminophen 650 mg 12/06/17 09:30 12/08/17 11:38 Tylenol 650mg/20.3ml Solution Ud PO 650 mg Q6 PRN Administration Temperature Albuterol/Ipratropium 3 ml 12/03/17 14:00 12/11/17 14:22 Duoneb 3 Mg/0.5 Mg (3 Ml) Ud INH 3 ml RQ6 ABHIJEET Administration Ascorbic Acid 500 mg 12/05/17 10:00 12/11/17 09:41 Vitamin C 500 Mg Tab PO 500 mg DAILY ABHIJEET Administration Famotidine 20 mg 11/27/17 10:00 12/11/17 09:41 Pepcid PO 20 mg DAILY ABHIJEET Administration Heparin Sodium (Porcine) 5,000 units 12/09/17 14:00 12/11/17 14:29 Heparin SC 5,000 units Q8 ABHIJEET Administration Meropenem 500 mg/ Sodium 100 mls @ 100 mls/hr 12/06/17 14:00 12/11/17 14:29 Chloride IVPB 100 mls/hr Q8 ABHIJEET Administration Dopamine HCl/Dextrose 400 mg in 250 mls @ 34.875 mls/hr 12/06/17 19:16 18:43 Dopamine 400mg/250ml D5w IV 10 mcg/kg/min .Q7H11M PRN 34.875 mls/hr TITRATE PER MD ORDER Titration Protocol 10 MCG/KG/MIN Insulin Aspart 0 unit 12/02/17 18:00 12/11/17 18:22 Novolog SC 2 unit Q6H ABHIJEET Administration Protocol Multivitamins 1 tab 12/07/17 10:00 12/11/17 09:41 Hexavitamin PO 1 tab DAILY ABHIJEET Administration Tamsulosin HCl 0.4 mg 11/27/17 10:00 12/11/17 09:41 Flomax PO 0.4 mg DAILY ABHIJEET Administration Zinc Sulfate 220 mg 12/02/17 10:00 12/11/17 09:41 Zinc Sulfate 220 Mg Cap PO 220 mg DAILY ABHIJEET Administration - Patient Studies Lab Studies: Microbiology Studies 12/06/17 09:19 S.aureus & Coag-Neg Staph PNA FISH - Final Blood-Venous Blood Culture - Final Methicillin Resistant S Aureus Gram Stain - Final Lab Studies 12/11/17 12/11/17 12/11/17 Range/Units 17:48 11:57 06:31 WBC (4.8-10.8) K/uL RBC (4.40-5.90) Mil/uL Hgb (12.0-18.0) g/dL Hct (35.0-51.0) % MCV (80.0-94.0) fL MCH (27.0-31.0) pg MCHC (33.0-37.0) g/dL RDW (11.5-14.5) % Plt Count (130-400) K/uL MPV (7.2-11.7) fL Neut % (Auto) (50.0-75.0) % Lymph % (Auto) (20.0-40.0) % [place] % (Auto) (0.0-10.0) % Eos % (Auto) (0.0-4.0) % Baso % (Auto) (0.0-2.0) % Neut # (Auto) (1.8-7.0) K/uL Lymph # (Auto) (1.0-4.3) K/uL [place] # (Auto) (0.0-0.8) K/uL Eos # (Auto) (0.0-0.7) K/uL Baso # (Auto) (0.0-0.2) K/uL Puncture Site pCO2 (35-45) mm/Hg pO2 (80-100) mm/Hg HCO3 (21-28) mmol/L ABG pH (7.35-7.45) ABG Total CO2 (22-28) mmol/L ABG O2 Saturation (95-98) % ABG Base Excess (-2.0-3.0) mmol/L ABG Hemoglobin (11.7-17.4) g/dL ABG Carboxyhemoglobin (0.5-1.5) % POC ABG HHb (Measured) (0.0-5.0) % ABG Methemoglobin (0.0-3.0) % Oscar Test A-a O2 Difference mm/Hg Respiratory Index Hgb O2 Saturation (95.0-98.0) % Vent Mode Mechanical Rate FiO2 % Tidal Volume PEEP Sodium 144 (132-148) mmol/L Potassium 3.7 (3.6-5.2) mmol/L Chloride 106 (98-107) mmol/L Carbon Dioxide 30 (22-30) mmol/L Anion Gap 12 (10-20) BUN 38 H (9-20) mg/dL Creatinine 1.2 (0.8-1.5) mg/dL Est GFR ( Amer) > 60 Est GFR (Non-Af Amer) 60 POC Glucose (mg/dL) 192 H 157 H (65-110) mg/dL Random Glucose 143 H (75-110) mg/dL Calcium 8.2 L (8.6-10.4) mg/dl Phosphorus 2.7 (2.5-4.5) mg/dL Magnesium 2.6 H (1.6-2.3) mg/dL Total Bilirubin 0.5 (0.2-1.3) mg/dL AST 39 (17-59) U/L ALT 58 (21-72) U/L Alkaline Phosphatase 86 (38-126) U/L Total Protein 6.6 (6.3-8.3) g/dL Albumin 2.9 L (3.5-5.0) g/dL Globulin 3.7 (2.2-3.9) gm/dL Albumin/Globulin Ratio 0.8 L (1.0-2.1) 12/11/17 12/11/17 12/11/17 Range/Units 06:31 06:09 04:56 WBC 10.1 (4.8-10.8) K/uL RBC 3.57 L (4.40-5.90) Mil/uL Hgb 10.0 L (12.0-18.0) g/dL Hct 29.5 L (35.0-51.0) % MCV 82.6 (80.0-94.0) fL MCH 28.0 (27.0-31.0) pg MCHC 34.0 (33.0-37.0) g/dL RDW 17.1 H (11.5-14.5) % Plt Count 193 (130-400) K/uL MPV 9.6 (7.2-11.7) fL Neut % (Auto) 81.7 H (50.0-75.0) % Lymph % (Auto) 11.9 L (20.0-40.0) % [place] % (Auto) 3.8 (0.0-10.0) % Eos % (Auto) 2.1 (0.0-4.0) % Baso % (Auto) 0.5 (0.0-2.0) % Neut # (Auto) 8.3 H (1.8-7.0) K/uL Lymph # (Auto) 1.2 (1.0-4.3) K/uL [place] # (Auto) 0.4 (0.0-0.8) K/uL Eos # (Auto) 0.2 (0.0-0.7) K/uL Baso # (Auto) 0.0 (0.0-0.2) K/uL Puncture Site Rr pCO2 41 (35-45) mm/Hg pO2 89 (80-100) mm/Hg HCO3 30.5 H (21-28) mmol/L ABG pH 7.49 H (7.35-7.45) ABG Total CO2 32.5 H (22-28) mmol/L ABG O2 Saturation 97.7 (95-98) % ABG Base Excess 7.2 H (-2.0-3.0) mmol/L ABG Hemoglobin 10.5 L (11.7-17.4) g/dL ABG Carboxyhemoglobin 1.4 (0.5-1.5) % POC ABG HHb (Measured) 2.2 (0.0-5.0) % ABG Methemoglobin 1.3 (0.0-3.0) % Oscar Test Pos A-a O2 Difference 288.0 mm/Hg Respiratory Index 3.2 Hgb O2 Saturation 95.1 (95.0-98.0) % Vent Mode Prvc Mechanical Rate 16 FiO2 60.0 % Tidal Volume 550 PEEP 5 Sodium (132-148) mmol/L Potassium (3.6-5.2) mmol/L Chloride (98-107) mmol/L Carbon Dioxide (22-30) mmol/L Anion Gap (10-20) BUN (9-20) mg/dL Creatinine (0.8-1.5) mg/dL Est GFR ( Amer) Est GFR (Non-Af Amer) POC Glucose (mg/dL) 130 H (65-110) mg/dL Random Glucose (75-110) mg/dL Calcium (8.6-10.4) mg/dl Phosphorus (2.5-4.5) mg/dL Magnesium (1.6-2.3) mg/dL Total Bilirubin (0.2-1.3) mg/dL AST (17-59) U/L ALT (21-72) U/L Alkaline Phosphatase (38-126) U/L Total Protein (6.3-8.3) g/dL Albumin (3.5-5.0) g/dL Globulin (2.2-3.9) gm/dL Albumin/Globulin Ratio (1.0-2.1) 12/10/17 Range/Units 23:49 WBC (4.8-10.8) K/uL RBC (4.40-5.90) Mil/uL Hgb (12.0-18.0) g/dL Hct (35.0-51.0) % MCV (80.0-94.0) fL MCH (27.0-31.0) pg MCHC (33.0-37.0) g/dL RDW (11.5-14.5) % Plt Count (130-400) K/uL MPV (7.2-11.7) fL Neut % (Auto) (50.0-75.0) % Lymph % (Auto) (20.0-40.0) % [place] % (Auto) (0.0-10.0) % Eos % (Auto) (0.0-4.0) % Baso % (Auto) (0.0-2.0) % Neut # (Auto) (1.8-7.0) K/uL Lymph # (Auto) (1.0-4.3) K/uL [place] # (Auto) (0.0-0.8) K/uL Eos # (Auto) (0.0-0.7) K/uL Baso # (Auto) (0.0-0.2) K/uL Puncture Site pCO2 (35-45) mm/Hg pO2 (80-100) mm/Hg HCO3 (21-28) mmol/L ABG pH (7.35-7.45) ABG Total CO2 (22-28) mmol/L ABG O2 Saturation (95-98) % ABG Base Excess (-2.0-3.0) mmol/L ABG Hemoglobin (11.7-17.4) g/dL ABG Carboxyhemoglobin (0.5-1.5) % POC ABG HHb (Measured) (0.0-5.0) % ABG Methemoglobin (0.0-3.0) % Oscar Test A-a O2 Difference mm/Hg Respiratory Index Hgb O2 Saturation (95.0-98.0) % Vent Mode Mechanical Rate FiO2 % Tidal Volume PEEP Sodium (132-148) mmol/L Potassium (3.6-5.2) mmol/L Chloride (98-107) mmol/L Carbon Dioxide (22-30) mmol/L Anion Gap (10-20) BUN (9-20) mg/dL Creatinine (0.8-1.5) mg/dL Est GFR ( Amer) Est GFR (Non-Af Amer) POC Glucose (mg/dL) 174 H (65-110) mg/dL Random Glucose (75-110) mg/dL Calcium (8.6-10.4) mg/dl Phosphorus (2.5-4.5) mg/dL Magnesium (1.6-2.3) mg/dL Total Bilirubin (0.2-1.3) mg/dL AST (17-59) U/L ALT (21-72) U/L Alkaline Phosphatase (38-126) U/L Total Protein (6.3-8.3) g/dL Albumin (3.5-5.0) g/dL Globulin (2.2-3.9) gm/dL Albumin/Globulin Ratio (1.0-2.1) Laboratory Results - last 24 hr 12/10/17 12/11/17 12/11/17 23:49 04:56 06:09 WBC RBC Hgb Hct MCV MCH MCHC RDW Plt Count MPV Neut % (Auto) Lymph % (Auto) [place] % (Auto) Eos % (Auto) Baso % (Auto) Neut # (Auto) Lymph # (Auto) [place] # (Auto) Eos # (Auto) Baso # (Auto) Puncture Site Rr pCO2 41 pO2 89 HCO3 30.5 H ABG pH 7.49 H ABG Total CO2 32.5 H ABG O2 Saturation 97.7 ABG Base Excess 7.2 H ABG Hemoglobin 10.5 L ABG Carboxyhemoglobin 1.4 POC ABG HHb (Measured) 2.2 ABG Methemoglobin 1.3 Oscar Test Pos A-a O2 Difference 288.0 Respiratory Index 3.2 Hgb O2 Saturation 95.1 Vent Mode Prvc Mechanical Rate 16 FiO2 60.0 Tidal Volume 550 PEEP 5 Sodium Potassium Chloride Carbon Dioxide Anion Gap BUN Creatinine Est GFR ( Amer) Est GFR (Non-Af Amer) POC Glucose (mg/dL) 174 H 130 H Random Glucose Calcium Phosphorus Magnesium Total Bilirubin AST ALT Alkaline Phosphatase Total Protein Albumin Globulin Albumin/Globulin Ratio 12/11/17 12/11/17 12/11/17 06:31 06:31 11:57 WBC 10.1 RBC 3.57 L Hgb 10.0 L Hct 29.5 L MCV 82.6 MCH 28.0 MCHC 34.0 RDW 17.1 H Plt Count 193 MPV 9.6 Neut % (Auto) 81.7 H Lymph % (Auto) 11.9 L [place] % (Auto) 3.8 Eos % (Auto) 2.1 Baso % (Auto) 0.5 Neut # (Auto) 8.3 H Lymph # (Auto) 1.2 [place] # (Auto) 0.4 Eos # (Auto) 0.2 Baso # (Auto) 0.0 Puncture Site pCO2 pO2 HCO3 ABG pH ABG Total CO2 ABG O2 Saturation ABG Base Excess ABG Hemoglobin ABG Carboxyhemoglobin POC ABG HHb (Measured) ABG Methemoglobin Oscar Test A-a O2 Difference Respiratory Index Hgb O2 Saturation Vent Mode Mechanical Rate FiO2 Tidal Volume PEEP Sodium 144 Potassium 3.7 Chloride 106 Carbon Dioxide 30 Anion Gap 12 BUN 38 H Creatinine 1.2 Est GFR ( Amer) > 60 Est GFR (Non-Af Amer) 60 POC Glucose (mg/dL) 157 H Random Glucose 143 H Calcium 8.2 L Phosphorus 2.7 Magnesium 2.6 H Total Bilirubin 0.5 AST 39 ALT 58 Alkaline Phosphatase 86 Total Protein 6.6 Albumin 2.9 L Globulin 3.7 Albumin/Globulin Ratio 0.8 L 12/11/17 17:48 WBC RBC Hgb Hct MCV MCH MCHC RDW Plt Count MPV Neut % (Auto) Lymph % (Auto) [place] % (Auto) Eos % (Auto) Baso % (Auto) Neut # (Auto) Lymph # (Auto) [place] # (Auto) Eos # (Auto) Baso # (Auto) Puncture Site pCO2 pO2 HCO3 ABG pH ABG Total CO2 ABG O2 Saturation ABG Base Excess ABG Hemoglobin ABG Carboxyhemoglobin POC ABG HHb (Measured) ABG Methemoglobin Oscar Test A-a O2 Difference Respiratory Index Hgb O2 Saturation Vent Mode Mechanical Rate FiO2 Tidal Volume PEEP Sodium Potassium Chloride Carbon Dioxide Anion Gap BUN Creatinine Est GFR ( Amer) Est GFR (Non-Af Amer) POC Glucose (mg/dL) 192 H Random Glucose Calcium Phosphorus Magnesium Total Bilirubin AST ALT Alkaline Phosphatase Total Protein Albumin Globulin Albumin/Globulin Ratio Critical Care Progress Note - Nutrition Nutrition: Nutrition Category Date Time Status Heart Healthy Diet [DIET] Diets 11/30/17 Lunch Active Assessment/Plan - Assessment and Plan (Free Text) Plan: "Neuro: prior CVA Cardio: HTN (Bruno) continue CVP monitoring consider HARLEY Pulm: Asthma, COPD, hypoxia intubated - increase FIO2 70%, RR 16, Tv 550, PEEP 8 septic shock possible 2/2 MRSA pneumonia vanco 1gm/meropenem 1gm duoneb CT angio was negative for PE GI: no acute issues Renal/Uro: BPH continue flomax 0.4mg QD ([place]) Endo: no acute issues Electrolytes: hypernatremia, hypokalemia continue 200cc free water Q8hr kdur ID: Septic shock, MRSA + sputum culture ([place]angia) vanco 1gm meropenem dopamine Skin: pressure ulcer Vitamin C zinc sulfate PPx: pepcid 20mg QD Heparin 5,000 units full code Next of kin: Jessica Marin ()" Patient seen and examined at bedside. Patient being treated for MRSA PNA/ bacteremia. continue abx as per ID. -titrate off pressors above note reflects discussion during ICU rounds. Cc time 35 minutes - Date & Time Date: 12/10/17 Time: 21:00
--- NOTE | 2017-12-10 15:33 | PN ---
DATE: 12/10/2017 The patient is on ventilator, still on dopamine. Blood pressure 110/50, pulse is 90. HEENT within normal limits. difficult weaning, may need to adjust the amount as needed. Adrianne Stanley MD
--- NOTE | 2017-12-10 18:10 | CP.PCM.PN ---
Subjective - Date & Time of Evaluation Date of Evaluation: 12/10/17 Time of Evaluation: 08:00 - Subjective Subjective: intubated continues to require dopamine for hypotension/bradycardia Today pt seen and examined bedside. Pt is awake, alert and follows commands. Still intubated. PMhx: COPD, CHF, CVA, HTN, BPH Objective - Vital Signs/Intake and Output Vital Signs (last 24 hours): Temp Pulse Resp BP Pulse Ox 99.1 F 79 19 88/48 L 96 12/10/17 16:00 12/10/17 15:59 12/10/17 15:59 12/10/17 15:59 12/10/17 15:59 Intake and Output: 12/10/17 12/10/17 06:59 18:59 Intake Total 2096.2 2046.1 Output Total 1450 Balance 646.2 2046.1 - Medications Medications: Current Medications Acetaminophen (Tylenol 650mg/20.3ml Solution Ud) 650 mg PO Q6 PRN PRN Reason: Temperature Last Admin: 12/08/17 11:38 Dose: 650 mg Albuterol/Ipratropium (Duoneb 3 Mg/0.5 Mg (3 Ml) Ud) 3 ml INH RQ6 [facility] Last Admin: 12/10/17 13:13 Dose: 3 ml Ascorbic Acid (Vitamin C 500 Mg Tab) 500 mg PO DAILY [facility] Last Admin: 12/10/17 10:09 Dose: 500 mg Famotidine (Pepcid) 20 mg PO DAILY [facility] Last Admin: 12/10/17 10:09 Dose: 20 mg Heparin Sodium (Porcine) (Heparin) 5,000 units SC Q8 [facility] Last Admin: 12/10/17 13:46 Dose: 5,000 units Meropenem 500 mg/ Sodium (Chloride) 100 mls @ 100 mls/hr IVPB Q8 [facility] Last Admin: 12/10/17 13:47 Dose: 100 mls/hr Vancomycin/Sodium Chloride (Vancomycin 1 Gm/Ns 200 Ml) 1 gm in 200 mls @ 133.333 mls/hr IVPB Q24H [facility] Stop: 12/11/17 13:31 Last Admin: 12/10/17 12:26 Dose: 133.333 mls/hr Dopamine HCl/Dextrose (Dopamine 400mg/250ml D5w) 400 mg in 250 mls @ 34.875 mls /hr IV .Q7H11M PRN; Protocol; 10 MCG/KG/MIN PRN Reason: TITRATE PER MD ORDER Last Admin: 12/10/17 15:02 Dose: 10 mcg/kg/min, 34.875 mls/hr Insulin Aspart (Novolog) 0 unit SC Q6H [facility]HIJE[facility] PRN Reason: Protocol Last Admin: 12/10/17 12:25 Dose: 2 unit Multivitamins (Hexavitamin) 1 tab PO DAILY [facility] Last Admin: 12/10/17 10:10 Dose: 1 tab Tamsulosin HCl (Flomax) 0.4 mg PO DAILY [facility] Last Admin: 12/10/17 10:10 Dose: 0.4 mg Zinc Sulfate (Zinc Sulfate 220 Mg Cap) 220 mg PO DAILY [facility] Last Admin: 12/10/17 10:09 Dose: 220 mg - Labs Labs: 12/10/17 06:50 12/10/17 06:50 PT 16.6 SECONDS (9.7-12.2) H 11/26/17 17:31 INR 1.5 11/26/17 17:31 APTT 31 SECONDS (21-34) 11/26/17 17:31 - Constitutional Appears: Confused, Chronically Ill - Head Exam Head Exam: NORMOCEPHALIC - Eye Exam Eye Exam: PERRL - ENT Exam ENT Exam: Mucous Membranes Dry - Neck Exam Neck Exam: absent: Lymphadenopathy - Respiratory Exam Respiratory Exam: Decreased Breath Sounds - Cardiovascular Exam Cardiovascular Exam: REGULAR RHYTHM - GI/Abdominal Exam GI & Abdominal Exam: Distended, Soft - Rectal Exam Rectal Exam: Deferred - Exam Exam: NORMAL INSPECTION - Extremities Exam Extremities Exam: absent: Pedal Edema - Back Exam Back Exam: absent: CVA tenderness (L), CVA tenderness (R) Assessment and Plan (1) Acute urinary retention Status: Acute (2) Fever Status: Acute (3) Sepsis associated hypotension Status: Acute (4) Pneumonia Status: Acute (5) Respiratory failure Status: Acute - Assessment and Plan (Free Text) Assessment: Brought to ER on 11/26/17 via ambulance from long term for SOB and hypotension. Subsequently admitted to the medical service. 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 Pt was intubated and transferred to ICU. MRSA + sputum cont iv antibiotics vent support pressors
--- NOTE | 2017-12-10 19:12 | CP.PCM.PN ---
Subjective - Date & Time of Evaluation Date of Evaluation: 12/10/17 Time of Evaluation: 19:00 - Subjective Subjective: remains intubated. on low dose dopamine. Objective - Vital Signs/Intake and Output Vital Signs (last 24 hours): Temp Pulse Resp BP Pulse Ox 99.1 F 79 19 88/48 L 96 12/10/17 16:00 12/10/17 15:59 12/10/17 15:59 12/10/17 15:59 12/10/17 15:59 Intake and Output: 12/10/17 12/11/17 18:59 06:59 Intake Total 2046.1 Balance 2046.1 - Medications Medications: Current Medications Acetaminophen (Tylenol 650mg/20.3ml Solution Ud) 650 mg PO Q6 PRN PRN Reason: Temperature Last Admin: 12/08/17 11:38 Dose: 650 mg Albuterol/Ipratropium (Duoneb 3 Mg/0.5 Mg (3 Ml) Ud) 3 ml INH RQ6 [facility] Last Admin: 12/10/17 13:13 Dose: 3 ml Ascorbic Acid (Vitamin C 500 Mg Tab) 500 mg PO DAILY [facility] Last Admin: 12/10/17 10:09 Dose: 500 mg Famotidine (Pepcid) 20 mg PO DAILY [facility] Last Admin: 12/10/17 10:09 Dose: 20 mg Heparin Sodium (Porcine) (Heparin) 5,000 units SC Q8 [facility] Last Admin: 12/10/17 13:46 Dose: 5,000 units Meropenem 500 mg/ Sodium (Chloride) 100 mls @ 100 mls/hr IVPB Q8 [facility] Last Admin: 12/10/17 13:47 Dose: 100 mls/hr Vancomycin/Sodium Chloride (Vancomycin 1 Gm/Ns 200 Ml) 1 gm in 200 mls @ 133.333 mls/hr IVPB Q24H [facility] Stop: 12/11/17 13:31 Last Admin: 12/10/17 12:26 Dose: 133.333 mls/hr Dopamine HCl/Dextrose (Dopamine 400mg/250ml D5w) 400 mg in 250 mls @ 34.875 mls /hr IV .Q7H11M PRN; Protocol; 10 MCG/KG/MIN PRN Reason: TITRATE PER MD ORDER Last Admin: 12/10/17 15:02 Dose: 10 mcg/kg/min, 34.875 mls/hr Insulin Aspart (Novolog) 0 unit SC Q6H [facility] PRN Reason: Protocol Last Admin: 12/10/17 18:10 Dose: Not Given Multivitamins (Hexavitamin) 1 tab PO DAILY [facility] Last Admin: 12/10/17 10:10 Dose: 1 tab Tamsulosin HCl (Flomax) 0.4 mg PO DAILY [facility] Last Admin: 12/10/17 10:10 Dose: 0.4 mg Zinc Sulfate (Zinc Sulfate 220 Mg Cap) 220 mg PO DAILY [facility] Last Admin: 12/10/17 10:09 Dose: 220 mg - Labs Labs: 12/10/17 06:50 12/10/17 06:50 PT 16.6 SECONDS (9.7-12.2) H 11/26/17 17:31 INR 1.5 11/26/17 17:31 APTT 31 SECONDS (21-34) 11/26/17 17:31 - Constitutional Appears: Non-toxic, Chronically Ill - Head Exam Head Exam: NORMAL INSPECTION - Eye Exam Eye Exam: Normal appearance - ENT Exam ENT Exam: Mucous Membranes Moist - Neck Exam Neck Exam: Normal Inspection - Respiratory Exam Respiratory Exam: Decreased Breath Sounds - Cardiovascular Exam Cardiovascular Exam: REGULAR RHYTHM - GI/Abdominal Exam GI & Abdominal Exam: Normal Bowel Sounds - Rectal Exam Rectal Exam: Deferred - Extremities Exam Extremities Exam: absent: Tenderness - Back Exam Back Exam: NORMAL INSPECTION - Neurological Exam Neurological Exam: Alert - Skin Skin Exam: Normal Color Assessment and Plan (1) Cardiac arrest Assessment & Plan: respiratory failure. no further bradyarrhythmia. on low dose dopamine Status: Acute (2) Hypernatremia Status: Acute
[2017-12-11] MEDS: Albuterol-Ipratrop 3 mg / 0.5 (3 ml) UD INH SCH ×4 (02:46→20:25)
[2017-12-11] MEDS: Meropenem 500 MG in Sodium Chloride 0.9% 100 ML IVPB SCH ×3 (05:30→22:00)
[2017-12-11] MEDS: DOPamine 400mg/250ml D5W 400 MG/250 ML BAG IV PRN ×3 (06:32→18:23)
[2017-12-11] MEDS: (Novolog) Insulin Aspart, Recombinant 100 u/ml 10 ml vial SC SCH ×5 (06:34→23:54)
[2017-12-11 06:40] LABS: ABG ALLEN TEST POS; ARTERIAL BLOOD GAS HCO3 30.5 mmol/L (21-28); ARTERIAL BLOOD GAS HEMOGLOBIN 10.5 g/dL (11.7-17.4); ARTERIAL BLOOD GAS O2 SAT 97.7 % (95-98); ARTERIAL BLOOD GAS PCO2 41 mm/Hg (35-45); ARTERIAL BLOOD GAS PH 7.49 (7.35-7.45); ARTERIAL BLOOD GAS PO2 89 mm/Hg (80-100); ARTERIAL BLOOD GAS TCO2 32.5 mmol/L (22-28)
[2017-12-11 06:45] LABS: BASO % 0.5 % (0.0-2.0); EOS # 0.2 K/uL (0.0-0.7); EOS % 2.1 % (0.0-4.0); LYMPH # 1.2 K/uL (1.0-4.3); LYMPH % 11.9 % (20.0-40.0); MEAN CELL VOLUME 82.6 fL (80.0-94.0); MEAN PLATELET VOLUME 9.6 fL (7.2-11.7); MONO # 0.4 K/uL (0.0-0.8); MONO % 3.8 % (0.0-10.0); NEUT # 8.3 K/uL (1.8-7.0); NEUT % 81.7 % (50.0-75.0); NRBC % 0.1 % (0.0-2.0); RBC 3.57 Mil/uL (4.40-5.90); RED CELL DISTRIBUTION WIDTH 17.1 % (11.5-14.5); WHITE BLOOD COUNT 10.1 K/uL (4.8-10.8)
[2017-12-11 07:04] LABS: ALB/GLOB RATIO 0.8 (1.0-2.1); ALBUMIN 2.9 g/dL (3.5-5.0); ALT/SGPT 58 U/L (21-72); AST/SGOT 39 U/L (17-59); BLOOD UREA NITROGEN 38 mg/dL (9-20); CALCIUM 8.2 mg/dl (8.6-10.4); GFR AFRICAN-AMERICAN > 60; GFR NON-AFRICAN AMERICAN 60; MAGNESIUM 2.6 mg/dL (1.6-2.3)
--- NOTE | 2017-12-11 08:42 | CP.CCUPN ---
CCU Subjective - Physician Review Subjective (Free Text): Patient seen and examined at bedside. 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 Now removed and placed on dopamine. NO acute events overnight. Patient continues to be on dopamine. Please see flow sheet for details. 12/11/17 08:37 CCU Objective - Vital Signs / Intake & Output Vital Signs (Last 4 hours): Vital Signs Pulse Resp BP Pulse Ox 12/11/17 07:00 69 16 98 12/11/17 06:59 69 17 112/67 98 12/11/17 06:32 86 18 91/53 L 100 12/11/17 06:00 81 16 91/53 L 97 12/11/17 05:00 79 16 141/69 99 Intake and Output (Last 8hrs): Intake & Output 12/10/17 12/11/17 12/11/17 22:59 06:59 14:59 Intake Total 1128.4 685.5 91.9 Output Total 690 515 80 Balance 438.4 170.5 11.9 Weight 189 lb 11.2 oz Intake: IV 250 0 Intake, IV Amount 278.4 285.5 41.9 Left Proximal Port 278.4 285.5 41.9 Internal Jugular Tube Feeding 400 400 50 Other 200 Output: Urine 690 515 80 Urethral (Singh) 690 515 80 Other: # Bowel Movements 1 1 - Physical Exam Head: Positive for: Atraumatic, Normocephalic Pupils: Positive for: PERRL Mouth: Positive for: Moist Mucous Membranes Respiratory/Chest: Positive for: Other (intubated) Abdomen: Positive for: Normal Bowel Sounds. Negative for: Tenderness, Distention, Peritoneal Signs Psychiatric: Positive for: Alert, Oriented x 3 - Medications Active Medications: Active Medications Generic Name Dose Route Start Last Admin Trade Name Freq PRN Reason Stop Dose Admin Acetaminophen 650 mg 12/06/17 09:30 12/08/17 11:38 Tylenol 650mg/20.3ml Solution Ud PO 650 mg Q6 PRN Administration Temperature Albuterol/Ipratropium 3 ml 12/03/17 14:00 12/11/17 08:00 Duoneb 3 Mg/0.5 Mg (3 Ml) Ud INH 3 ml RQ6 [facility] Administration Ascorbic Acid 500 mg 12/05/17 10:00 12/10/17 10:09 Vitamin C 500 Mg Tab PO 500 mg DAILY [facility] Administration Famotidine 20 mg 11/27/17 10:00 12/10/17 10:09 Pepcid PO 20 mg DAILY [facility] Administration Heparin Sodium (Porcine) 5,000 units 12/09/17 14:00 12/11/17 06:35 Heparin SC 5,000 units Q8 [facility] Administration Meropenem 500 mg/ Sodium 100 mls @ 100 mls/hr 12/06/17 14:00 12/11/17 05:30 Chloride IVPB 100 mls/hr Q8 [facility] Administration Vancomycin/Sodium Chloride 1 gm in 200 mls @ 133.333 mls/hr 12/06/17 12:15 12:26 Vancomycin 1 Gm/Ns 200 Ml IVPB 12/11/17 13:31 133.333 mls/hr Q24H [facility] Administration Dopamine HCl/Dextrose 400 mg in 250 mls @ 34.875 mls/hr 12/06/17 19:16 07:16 Dopamine 400mg/250ml D5w IV 12 mcg/kg/min .Q7H11M PRN 41.85 mls/hr TITRATE PER MD ORDER Titration Protocol 10 MCG/KG/MIN Insulin Aspart 0 unit 12/02/17 18:00 12/11/17 06:34 Novolog SC Not Given Q6H [facility] Protocol Multivitamins 1 tab 12/07/17 10:00 12/10/17 10:10 Hexavitamin PO 1 tab DAILY [facility] Administration Tamsulosin HCl 0.4 mg 11/27/17 10:00 12/10/17 10:10 Flomax PO 0.4 mg DAILY [facility] Administration Zinc Sulfate 220 mg 12/02/17 10:00 12/10/17 10:09 Zinc Sulfate 220 Mg Cap PO 220 mg DAILY [facility] Administration - Patient Studies Lab Studies: Lab Studies 12/11/17 12/11/17 12/11/17 Range/Units 06:31 06:31 06:09 WBC 10.1 (4.8-10.8) K/uL RBC 3.57 L (4.40-5.90) Mil/uL Hgb 10.0 L (12.0-18.0) g/dL Hct 29.5 L (35.0-51.0) % MCV 82.6 (80.0-94.0) fL MCH 28.0 (27.0-31.0) pg MCHC 34.0 (33.0-37.0) g/dL RDW 17.1 H (11.5-14.5) % Plt Count 193 (130-400) K/uL MPV 9.6 (7.2-11.7) fL Neut % (Auto) 81.7 H (50.0-75.0) % Lymph % (Auto) 11.9 L (20.0-40.0) % Estill % (Auto) 3.8 (0.0-10.0) % Eos % (Auto) 2.1 (0.0-4.0) % Baso % (Auto) 0.5 (0.0-2.0) % Neut # (Auto) 8.3 H (1.8-7.0) K/uL Lymph # (Auto) 1.2 (1.0-4.3) K/uL Estill # (Auto) 0.4 (0.0-0.8) K/uL Eos # (Auto) 0.2 (0.0-0.7) K/uL Baso # (Auto) 0.0 (0.0-0.2) K/uL Puncture Site pCO2 (35-45) mm/Hg pO2 (80-100) mm/Hg HCO3 (21-28) mmol/L ABG pH (7.35-7.45) ABG Total CO2 (22-28) mmol/L ABG O2 Saturation (95-98) % ABG Base Excess (-2.0-3.0) mmol/L ABG Hemoglobin (11.7-17.4) g/dL ABG Carboxyhemoglobin (0.5-1.5) % POC ABG HHb (Measured) (0.0-5.0) % ABG Methemoglobin (0.0-3.0) % Oscar Test A-a O2 Difference mm/Hg Respiratory Index Hgb O2 Saturation (95.0-98.0) % Vent Mode Mechanical Rate FiO2 % Tidal Volume PEEP Sodium 144 (132-148) mmol/L Potassium 3.7 (3.6-5.2) mmol/L Chloride 106 (98-107) mmol/L Carbon Dioxide 30 (22-30) mmol/L Anion Gap 12 (10-20) BUN 38 H (9-20) mg/dL Creatinine 1.2 (0.8-1.5) mg/dL Est GFR ( Amer) > 60 Est GFR (Non-Af Amer) 60 POC Glucose (mg/dL) 130 H (65-110) mg/dL Random Glucose 143 H (75-110) mg/dL Calcium 8.2 L (8.6-10.4) mg/dl Phosphorus 2.7 (2.5-4.5) mg/dL Magnesium 2.6 H (1.6-2.3) mg/dL Total Bilirubin 0.5 (0.2-1.3) mg/dL AST 39 (17-59) U/L ALT 58 (21-72) U/L Alkaline Phosphatase 86 (38-126) U/L Total Protein 6.6 (6.3-8.3) g/dL Albumin 2.9 L (3.5-5.0) g/dL Globulin 3.7 (2.2-3.9) gm/dL Albumin/Globulin Ratio 0.8 L (1.0-2.1) Vancomycin Trough (5.0-10.0) ug/mL 12/11/17 12/10/17 12/10/17 Range/Units 04:56 23:49 17:32 WBC (4.8-10.8) K/uL RBC (4.40-5.90) Mil/uL Hgb (12.0-18.0) g/dL Hct (35.0-51.0) % MCV (80.0-94.0) fL MCH (27.0-31.0) pg MCHC (33.0-37.0) g/dL RDW (11.5-14.5) % Plt Count (130-400) K/uL MPV (7.2-11.7) fL Neut % (Auto) (50.0-75.0) % Lymph % (Auto) (20.0-40.0) % Estill % (Auto) (0.0-10.0) % Eos % (Auto) (0.0-4.0) % Baso % (Auto) (0.0-2.0) % Neut # (Auto) (1.8-7.0) K/uL Lymph # (Auto) (1.0-4.3) K/uL Estill # (Auto) (0.0-0.8) K/uL Eos # (Auto) (0.0-0.7) K/uL Baso # (Auto) (0.0-0.2) K/uL Puncture Site Rr pCO2 41 (35-45) mm/Hg pO2 89 (80-100) mm/Hg HCO3 30.5 H (21-28) mmol/L ABG pH 7.49 H (7.35-7.45) ABG Total CO2 32.5 H (22-28) mmol/L ABG O2 Saturation 97.7 (95-98) % ABG Base Excess 7.2 H (-2.0-3.0) mmol/L ABG Hemoglobin 10.5 L (11.7-17.4) g/dL ABG Carboxyhemoglobin 1.4 (0.5-1.5) % POC ABG HHb (Measured) 2.2 (0.0-5.0) % ABG Methemoglobin 1.3 (0.0-3.0) % Oscar Test Pos A-a O2 Difference 288.0 mm/Hg Respiratory Index 3.2 Hgb O2 Saturation 95.1 (95.0-98.0) % Vent Mode Prvc Mechanical Rate 16 FiO2 60.0 % Tidal Volume 550 PEEP 5 Sodium (132-148) mmol/L Potassium (3.6-5.2) mmol/L Chloride (98-107) mmol/L Carbon Dioxide (22-30) mmol/L Anion Gap (10-20) BUN (9-20) mg/dL Creatinine (0.8-1.5) mg/dL Est GFR ( Amer) Est GFR (Non-Af Amer) POC Glucose (mg/dL) 174 H 126 H (65-110) mg/dL Random Glucose (75-110) mg/dL Calcium (8.6-10.4) mg/dl Phosphorus (2.5-4.5) mg/dL Magnesium (1.6-2.3) mg/dL Total Bilirubin (0.2-1.3) mg/dL AST (17-59) U/L ALT (21-72) U/L Alkaline Phosphatase (38-126) U/L Total Protein (6.3-8.3) g/dL Albumin (3.5-5.0) g/dL Globulin (2.2-3.9) gm/dL Albumin/Globulin Ratio (1.0-2.1) Vancomycin Trough (5.0-10.0) ug/mL 12/10/17 12/10/17 Range/Units 11:46 11:09 WBC (4.8-10.8) K/uL RBC (4.40-5.90) Mil/uL Hgb (12.0-18.0) g/dL Hct (35.0-51.0) % MCV (80.0-94.0) fL MCH (27.0-31.0) pg MCHC (33.0-37.0) g/dL RDW (11.5-14.5) % Plt Count (130-400) K/uL MPV (7.2-11.7) fL Neut % (Auto) (50.0-75.0) % Lymph % (Auto) (20.0-40.0) % Estill % (Auto) (0.0-10.0) % Eos % (Auto) (0.0-4.0) % Baso % (Auto) (0.0-2.0) % Neut # (Auto) (1.8-7.0) K/uL Lymph # (Auto) (1.0-4.3) K/uL Estill # (Auto) (0.0-0.8) K/uL Eos # (Auto) (0.0-0.7) K/uL Baso # (Auto) (0.0-0.2) K/uL Puncture Site pCO2 (35-45) mm/Hg pO2 (80-100) mm/Hg HCO3 (21-28) mmol/L ABG pH (7.35-7.45) ABG Total CO2 (22-28) mmol/L ABG O2 Saturation (95-98) % ABG Base Excess (-2.0-3.0) mmol/L ABG Hemoglobin (11.7-17.4) g/dL ABG Carboxyhemoglobin (0.5-1.5) % POC ABG HHb (Measured) (0.0-5.0) % ABG Methemoglobin (0.0-3.0) % Oscar Test A-a O2 Difference mm/Hg Respiratory Index Hgb O2 Saturation (95.0-98.0) % Vent Mode Mechanical Rate FiO2 % Tidal Volume PEEP Sodium (132-148) mmol/L Potassium (3.6-5.2) mmol/L Chloride (98-107) mmol/L Carbon Dioxide (22-30) mmol/L Anion Gap (10-20) BUN (9-20) mg/dL Creatinine (0.8-1.5) mg/dL Est GFR ( Amer) Est GFR (Non-Af Amer) POC Glucose (mg/dL) 175 H (65-110) mg/dL Random Glucose (75-110) mg/dL Calcium (8.6-10.4) mg/dl Phosphorus (2.5-4.5) mg/dL Magnesium (1.6-2.3) mg/dL Total Bilirubin (0.2-1.3) mg/dL AST (17-59) U/L ALT (21-72) U/L Alkaline Phosphatase (38-126) U/L Total Protein (6.3-8.3) g/dL Albumin (3.5-5.0) g/dL Globulin (2.2-3.9) gm/dL Albumin/Globulin Ratio (1.0-2.1) Vancomycin Trough 17.4 H (5.0-10.0) ug/mL Laboratory Results - last 24 hr 12/10/17 12/10/17 12/10/17 11:09 11:46 17:32 WBC RBC Hgb Hct MCV MCH MCHC RDW Plt Count MPV Neut % (Auto) Lymph % (Auto) Estill % (Auto) Eos % (Auto) Baso % (Auto) Neut # (Auto) Lymph # (Auto) Estill # (Auto) Eos # (Auto) Baso # (Auto) Puncture Site pCO2 pO2 HCO3 ABG pH ABG Total CO2 ABG O2 Saturation ABG Base Excess ABG Hemoglobin ABG Carboxyhemoglobin POC ABG HHb (Measured) ABG Methemoglobin Oscar Test A-a O2 Difference Respiratory Index Hgb O2 Saturation Vent Mode Mechanical Rate FiO2 Tidal Volume PEEP Sodium Potassium Chloride Carbon Dioxide Anion Gap BUN Creatinine Est GFR ( Amer) Est GFR (Non-Af Amer) POC Glucose (mg/dL) 175 H 126 H Random Glucose Calcium Phosphorus Magnesium Total Bilirubin AST ALT Alkaline Phosphatase Total Protein Albumin Globulin Albumin/Globulin Ratio Vancomycin Trough 17.4 H 12/10/17 12/11/17 12/11/17 23:49 04:56 06:09 WBC RBC Hgb Hct MCV MCH MCHC RDW Plt Count MPV Neut % (Auto) Lymph % (Auto) Estill % (Auto) Eos % (Auto) Baso % (Auto) Neut # (Auto) Lymph # (Auto) Estill # (Auto) Eos # (Auto) Baso # (Auto) Puncture Site Rr pCO2 41 pO2 89 HCO3 30.5 H ABG pH 7.49 H ABG Total CO2 32.5 H ABG O2 Saturation 97.7 ABG Base Excess 7.2 H ABG Hemoglobin 10.5 L ABG Carboxyhemoglobin 1.4 POC ABG HHb (Measured) 2.2 ABG Methemoglobin 1.3 Oscar Test Pos A-a O2 Difference 288.0 Respiratory Index 3.2 Hgb O2 Saturation 95.1 Vent Mode Prvc Mechanical Rate 16 FiO2 60.0 Tidal Volume 550 PEEP 5 Sodium Potassium Chloride Carbon Dioxide Anion Gap BUN Creatinine Est GFR ( Amer) Est GFR (Non-Af Amer) POC Glucose (mg/dL) 174 H 130 H Random Glucose Calcium Phosphorus Magnesium Total Bilirubin AST ALT Alkaline Phosphatase Total Protein Albumin Globulin Albumin/Globulin Ratio Vancomycin Trough 12/11/17 12/11/17 06:31 06:31 WBC 10.1 RBC 3.57 L Hgb 10.0 L Hct 29.5 L MCV 82.6 MCH 28.0 MCHC 34.0 RDW 17.1 H Plt Count 193 MPV 9.6 Neut % (Auto) 81.7 H Lymph % (Auto) 11.9 L Estill % (Auto) 3.8 Eos % (Auto) 2.1 Baso % (Auto) 0.5 Neut # (Auto) 8.3 H Lymph # (Auto) 1.2 Estill # (Auto) 0.4 Eos # (Auto) 0.2 Baso # (Auto) 0.0 Puncture Site pCO2 pO2 HCO3 ABG pH ABG Total CO2 ABG O2 Saturation ABG Base Excess ABG Hemoglobin ABG Carboxyhemoglobin POC ABG HHb (Measured) ABG Methemoglobin Oscar Test A-a O2 Difference Respiratory Index Hgb O2 Saturation Vent Mode Mechanical Rate FiO2 Tidal Volume PEEP Sodium 144 Potassium 3.7 Chloride 106 Carbon Dioxide 30 Anion Gap 12 BUN 38 H Creatinine 1.2 Est GFR ( Amer) > 60 Est GFR (Non-Af Amer) 60 POC Glucose (mg/dL) Random Glucose 143 H Calcium 8.2 L Phosphorus 2.7 Magnesium 2.6 H Total Bilirubin 0.5 AST 39 ALT 58 Alkaline Phosphatase 86 Total Protein 6.6 Albumin 2.9 L Globulin 3.7 Albumin/Globulin Ratio 0.8 L Vancomycin Trough Fingerstick Blood Sugar Results: 130 Critical Care Progress Note - Nutrition Nutrition: Nutrition Category Date Time Status Heart Healthy Diet [DIET] Diets 11/30/17 Lunch Active Assessment/Plan - Assessment and Plan (Free Text) Assessment: Neuro: prior CVA, no change -Cardio:currently on dopamine (Bruno), ?HARLEY -Pulm: h/o COPD, hypoxia, continue ventilatoin to keep spo2 >92 and pH b/w 7.35- 7.45 -septic shock possible: continue abx -GI: continue Renal/Uro: BPH continue flomax 0.4mg QD (Horton) Endo: no acute issues Electrolytes: hypernatremia, hypokalemia continue 200cc free water Q8hr kdur ID: Septic shock, MRSA + sputum culture (Mangia) vanco 1gm meropenem dopamine Skin: pressure ulcer Vitamin C zinc sulfate PPx: pepcid 20mg QD Heparin 5,000 units full code Next of kin: Jessica Marin ()
[2017-12-11] MEDS: Multiple Vitamins Tab PO SCH (09:41)
--- NOTE | 2017-12-11 10:14 | RAD ---
HISTORY: sepsis COMPARISON: Chest x-ray performed 12/10/17 TECHNIQUE: Chest, one view. FINDINGS: Endotracheal tube, left IJ approach central venous catheter, and nasogastric tube re-identified. LUNGS: Left hilar prominence. Interstitial prominence may reflect infection or edema, stable to minimally decreased in extent. Small layering left pleural effusion. No definite pneumothorax. CARDIOVASCULAR: Cardiomegaly. OSSEOUS STRUCTURES: Partially imaged cervical fusion hardware. Degenerative changes. VISUALIZED UPPER ABDOMEN: Unremarkable. OTHER FINDINGS: None. IMPRESSION: Endotracheal tube, left IJ approach central venous catheter, and nasogastric tube re-identified. Left hilar prominence. Interstitial prominence may reflect infection or edema, stable to minimally decreased in extent. Small layering left pleural effusion.
[2017-12-11] MEDS: Vancomycin 1 gm/NS 200 ml 1 GM/200 ML BAG IVPB SCH (11:52)
--- NOTE | 2017-12-11 16:45 | CP.PCM.PN ---
Subjective - Date & Time of Evaluation Date of Evaluation: 12/11/17 Time of Evaluation: 11:35 - Subjective Subjective: RENAL NOTE S: seen and examined, on ventilator vss gen: nad sclera anicteric op clear neck supple cv +s1+s2 lungs mechanical bs abd soft ext: no edema neuro: following commands psych nml affect skin no rash imp: ARF / Hypernatremia/ Anemia / Hypoxic respiratory failure / sepsis plan: VALORIE is improving continue supportive care avoid hypotension na is improving on abx transfuse prn primary team Objective - Vital Signs/Intake and Output Vital Signs (last 24 hours): Temp Pulse Resp BP Pulse Ox 99 F 84 20 107/59 L 99 12/11/17 12:00 12/11/17 15:00 12/11/17 15:00 12/11/17 14:59 12/11/17 15:00 Intake and Output: 12/11/17 12/11/17 06:59 18:59 Intake Total 1274.7 1377.1 Output Total 705 880 Balance 569.7 497.1 - Medications Medications: Current Medications Acetaminophen (Tylenol 650mg/20.3ml Solution Ud) 650 mg PO Q6 PRN PRN Reason: Temperature Last Admin: 12/08/17 11:38 Dose: 650 mg Albuterol/Ipratropium (Duoneb 3 Mg/0.5 Mg (3 Ml) Ud) 3 ml INH RQ6 [facility] Last Admin: 12/11/17 14:22 Dose: 3 ml Ascorbic Acid (Vitamin C 500 Mg Tab) 500 mg PO DAILY [facility] Last Admin: 12/11/17 09:41 Dose: 500 mg Famotidine (Pepcid) 20 mg PO DAILY [facility] Last Admin: 12/11/17 09:41 Dose: 20 mg Heparin Sodium (Porcine) (Heparin) 5,000 units SC Q8 [facility] Last Admin: 12/11/17 14:29 Dose: 5,000 units Meropenem 500 mg/ Sodium (Chloride) 100 mls @ 100 mls/hr IVPB Q8 [facility] Last Admin: 12/11/17 14:29 Dose: 100 mls/hr Dopamine HCl/Dextrose (Dopamine 400mg/250ml D5w) 400 mg in 250 mls @ 34.875 mls /hr IV .Q7H11M PRN; Protocol; 10 MCG/KG/MIN PRN Reason: TITRATE PER MD ORDER Last Admin: 12/11/17 11:49 Dose: 12 mcg/kg/min, 41.85 mls/hr Insulin Aspart (Novolog) 0 unit SC Q6H [facility] PRN Reason: Protocol Last Admin: 12/11/17 11:51 Dose: 2 unit Multivitamins (Hexavitamin) 1 tab PO DAILY [facility] Last Admin: 12/11/17 09:41 Dose: 1 tab Tamsulosin HCl (Flomax) 0.4 mg PO DAILY [facility] Last Admin: 12/11/17 09:41 Dose: 0.4 mg Zinc Sulfate (Zinc Sulfate 220 Mg Cap) 220 mg PO DAILY [facility] Last Admin: 12/11/17 09:41 Dose: 220 mg - Labs Labs: 12/11/17 06:31 12/11/17 06:31 PT 16.6 SECONDS (9.7-12.2) H 11/26/17 17:31 INR 1.5 11/26/17 17:31 APTT 31 SECONDS (21-34) 11/26/17 17:31
[2017-12-12] MEDS: DOPamine 400mg/250ml D5W 400 MG/250 ML BAG IV PRN ×3 (00:46→22:19)
[2017-12-12] MEDS: Albuterol-Ipratrop 3 mg / 0.5 (3 ml) UD INH SCH ×4 (01:15→20:44)
[2017-12-12 04:32] LABS: ABG ALLEN TEST POS; ARTERIAL BLOOD GAS HCO3 31.8 mmol/L (21-28); ARTERIAL BLOOD GAS PCO2 48 mm/Hg (35-45); ARTERIAL BLOOD GAS PH 7.46 (7.35-7.45); ARTERIAL BLOOD GAS PO2 81 mm/Hg (80-100); ARTERIAL BLOOD GAS TCO2 35.6 mmol/L (22-28)
[2017-12-12] MEDS: (Novolog) Insulin Aspart, Recombinant 100 u/ml 10 ml vial SC SCH ×3 (06:00→18:32)
[2017-12-12] MEDS: Meropenem 500 MG in Sodium Chloride 0.9% 100 ML IVPB SCH ×3 (06:00→22:52)
[2017-12-12 06:51] LABS: ALB/GLOB RATIO 0.8 (1.0-2.1); ALBUMIN 2.9 g/dL (3.5-5.0); ALT/SGPT 84 U/L (21-72); AST/SGOT 79 U/L (17-59); BLOOD UREA NITROGEN 35 mg/dL (9-20); CALCIUM 8.1 mg/dl (8.6-10.4); GFR AFRICAN-AMERICAN > 60; GFR NON-AFRICAN AMERICAN > 60; MAGNESIUM 2.6 mg/dL (1.6-2.3)
[2017-12-12 06:56] LABS: BASO # 0.1 K/uL (0.0-0.2); BASO % 0.5 % (0.0-2.0); EOS # 0.2 K/uL (0.0-0.7); HEMOGLOBIN 9.6 g/dL (12.0-18.0); LYMPH # 1.5 K/uL (1.0-4.3); LYMPH % 14.1 % (20.0-40.0); MEAN CELL VOLUME 81.7 fL (80.0-94.0); MEAN CORPUSCULAR HEMOGLOBIN 27.8 pg (27.0-31.0); MEAN PLATELET VOLUME 9.7 fL (7.2-11.7); MONO # 0.5 K/uL (0.0-0.8); MONO % 4.4 % (0.0-10.0); NEUT # 8.2 K/uL (1.8-7.0); NRBC % 0.1 % (0.0-2.0); RBC 3.47 Mil/uL (4.40-5.90); RED CELL DISTRIBUTION WIDTH 16.9 % (11.5-14.5); WHITE BLOOD COUNT 10.4 K/uL (4.8-10.8)
--- NOTE | 2017-12-12 09:26 | CP.CCUPN ---
CCU Subjective - Physician Review Subjective (Free Text): Patient seen and examined at bedside. 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 Now removed and placed on dopamine. NO acute events overnight. Patient continues to be on dopamine. Please see flow sheet for details. 12/11/17 08:37 CCU Objective - Vital Signs / Intake & Output Vital Signs (Last 4 hours): Vital Signs Pulse Resp Pulse Ox 12/12/17 07:00 82 16 98 12/12/17 06:11 93 H 11 L Intake and Output (Last 8hrs): Intake & Output 12/11/17 12/12/17 12/12/17 22:59 06:59 14:59 Intake Total 1413.9 1235.2 91.9 Output Total 1200 1150 90 Balance 213.9 85.2 1.9 Weight 190 lb 0.2 oz Intake: IV 500 Intake, IV Amount 313.9 435.2 41.9 Left Proximal Port 313.9 335.2 41.9 Internal Jugular Right Distal Port 100 Tube Feeding 400 400 50 Other 200 400 Output: Urine 1200 1150 90 Urethral (Sanders) 1200 1150 90 Stool 0 0 Other: # Bowel Movements 1 1 - Physical Exam Head: Positive for: Atraumatic, Normocephalic Pupils: Positive for: PERRL Mouth: Positive for: Moist Mucous Membranes Respiratory/Chest: Positive for: Other (intubated) Abdomen: Positive for: Normal Bowel Sounds. Negative for: Tenderness, Distention, Peritoneal Signs Psychiatric: Positive for: Alert, Oriented x 3 - Medications Active Medications: Active Medications Generic Name Dose Route Start Last Admin Trade Name Freq PRN Reason Stop Dose Admin Acetaminophen 650 mg 12/06/17 09:30 12/08/17 11:38 Tylenol 650mg/20.3ml Solution Ud PO 650 mg Q6 PRN Administration Temperature Albuterol/Ipratropium 3 ml 12/03/17 14:00 12/12/17 08:09 Duoneb 3 Mg/0.5 Mg (3 Ml) Ud INH 3 ml RQ6 ABHIJEET Administration Ascorbic Acid 500 mg 12/05/17 10:00 12/11/17 09:41 Vitamin C 500 Mg Tab PO 500 mg DAILY ABHIJEET Administration Famotidine 20 mg 11/27/17 10:00 12/11/17 09:41 Pepcid PO 20 mg DAILY ABHIJEET Administration Heparin Sodium (Porcine) 5,000 units 12/09/17 14:00 12/12/17 06:00 Heparin SC 5,000 units Q8 ABHIJEET Administration Meropenem 500 mg/ Sodium 100 mls @ 100 mls/hr 12/06/17 14:00 12/12/17 06:00 Chloride IVPB 100 mls/hr Q8 ABHIJEET Administration Dopamine HCl/Dextrose 400 mg in 250 mls @ 34.875 mls/hr 12/06/17 19:16 00:46 Dopamine 400mg/250ml D5w IV 41.9 mcg/kg/min .Q7H11M PRN 146.126 mls/hr TITRATE PER MD ORDER Administration Protocol 10 MCG/KG/MIN Vancomycin/Sodium Chloride 1 gm in 200 mls @ 133 mls/hr 12/12/17 09:30 Vancomycin 1 Gm/Ns 200 Ml IVPB 12/17/17 09:31 Q12H [facility] Insulin Aspart 0 unit 12/02/17 18:00 12/12/17 06:00 Novolog SC Not Given Q6H [facility] Protocol Multivitamins 1 tab 12/07/17 10:00 12/11/17 09:41 Hexavitamin PO 1 tab DAILY ABHIJEET Administration Tamsulosin HCl 0.4 mg 11/27/17 10:00 12/11/17 09:41 Flomax PO 0.4 mg DAILY ABHIJEET Administration Zinc Sulfate 220 mg 12/02/17 10:00 12/11/17 09:41 Zinc Sulfate 220 Mg Cap PO 220 mg DAILY ABHIJEET Administration - Patient Studies Lab Studies: Microbiology Studies 12/06/17 09:19 S.aureus & Coag-Neg Staph PNA FISH - Final Blood-Venous Blood Culture - Final Methicillin Resistant S Aureus Gram Stain - Final Lab Studies 12/12/17 12/12/17 12/12/17 Range/Units 06:32 06:23 06:23 WBC 10.4 (4.8-10.8) K/uL RBC 3.47 L (4.40-5.90) Mil/uL Hgb 9.6 L (12.0-18.0) g/dL Hct 28.3 L (35.0-51.0) % MCV 81.7 (80.0-94.0) fL MCH 27.8 (27.0-31.0) pg MCHC 34.0 (33.0-37.0) g/dL RDW 16.9 H (11.5-14.5) % Plt Count 199 (130-400) K/uL MPV 9.7 (7.2-11.7) fL Neut % (Auto) 79.0 H (50.0-75.0) % Lymph % (Auto) 14.1 L (20.0-40.0) % Stokes % (Auto) 4.4 (0.0-10.0) % Eos % (Auto) 2.0 (0.0-4.0) % Baso % (Auto) 0.5 (0.0-2.0) % Neut # (Auto) 8.2 H (1.8-7.0) K/uL Lymph # (Auto) 1.5 (1.0-4.3) K/uL Stokes # (Auto) 0.5 (0.0-0.8) K/uL Eos # (Auto) 0.2 (0.0-0.7) K/uL Baso # (Auto) 0.1 (0.0-0.2) K/uL Puncture Site pCO2 (35-45) mm/Hg pO2 (80-100) mm/Hg HCO3 (21-28) mmol/L ABG pH (7.35-7.45) ABG Total CO2 (22-28) mmol/L ABG O2 Saturation (95-98) % ABG Base Excess (-2.0-3.0) mmol/L Oscar Test ABG Potassium (3.6-5.2) mmol/L A-a O2 Difference mm/Hg Respiratory Index Sodium 145 (132-148) mmol/l Chloride 105 (98-107) mmol/L Glucose (75-110) mg/dl Lactate (0.7-2.1) mmol/L Vent Mode Mechanical Rate FiO2 % Tidal Volume PEEP Potassium 3.7 (3.6-5.2) mmol/L Carbon Dioxide 32 H (22-30) mmol/L Anion Gap 12 (10-20) BUN 35 H (9-20) mg/dL Creatinine 1.1 (0.8-1.5) mg/dL Est GFR ( Amer) > 60 Est GFR (Non-Af Amer) > 60 POC Glucose (mg/dL) 103 (65-110) mg/dL Random Glucose 137 H (75-110) mg/dL Calcium 8.1 L (8.6-10.4) mg/dl Phosphorus 3.3 (2.5-4.5) mg/dL Magnesium 2.6 H (1.6-2.3) mg/dL Total Bilirubin 0.5 (0.2-1.3) mg/dL AST 79 H D (17-59) U/L ALT 84 H D (21-72) U/L Alkaline Phosphatase 98 (38-126) U/L Total Protein 6.8 (6.3-8.3) g/dL Albumin 2.9 L (3.5-5.0) g/dL Globulin 3.9 (2.2-3.9) gm/dL Albumin/Globulin Ratio 0.8 L (1.0-2.1) Arterial Blood Potassium (3.6-5.2) mmol/L 12/12/17 12/11/17 12/11/17 Range/Units 04:25 23:50 17:48 WBC (4.8-10.8) K/uL RBC (4.40-5.90) Mil/uL Hgb (12.0-18.0) g/dL Hct (35.0-51.0) % MCV (80.0-94.0) fL MCH (27.0-31.0) pg MCHC (33.0-37.0) g/dL RDW (11.5-14.5) % Plt Count (130-400) K/uL MPV (7.2-11.7) fL Neut % (Auto) (50.0-75.0) % Lymph % (Auto) (20.0-40.0) % Stokes % (Auto) (0.0-10.0) % Eos % (Auto) (0.0-4.0) % Baso % (Auto) (0.0-2.0) % Neut # (Auto) (1.8-7.0) K/uL Lymph # (Auto) (1.0-4.3) K/uL Stokes # (Auto) (0.0-0.8) K/uL Eos # (Auto) (0.0-0.7) K/uL Baso # (Auto) (0.0-0.2) K/uL Puncture Site Rr pCO2 48 H (35-45) mm/Hg pO2 81 (80-100) mm/Hg HCO3 31.8 H (21-28) mmol/L ABG pH 7.46 H (7.35-7.45) ABG Total CO2 35.6 H (22-28) mmol/L ABG O2 Saturation 97.0 (95-98) % ABG Base Excess 8.8 H (-2.0-3.0) mmol/L Oscar Test Pos ABG Potassium 3.6 (3.6-5.2) mmol/L A-a O2 Difference 287.0 mm/Hg Respiratory Index 3.5 Sodium 148.0 (132-148) mmol/l Chloride 114.0 H (98-107) mmol/L Glucose 146 H (75-110) mg/dl Lactate 1.0 (0.7-2.1) mmol/L Vent Mode Prvc Mechanical Rate 16 FiO2 60.0 % Tidal Volume 550 PEEP 5 Potassium (3.6-5.2) mmol/L Carbon Dioxide (22-30) mmol/L Anion Gap (10-20) BUN (9-20) mg/dL Creatinine (0.8-1.5) mg/dL Est GFR ( Amer) Est GFR (Non-Af Amer) POC Glucose (mg/dL) 176 H 192 H (65-110) mg/dL Random Glucose (75-110) mg/dL Calcium (8.6-10.4) mg/dl Phosphorus (2.5-4.5) mg/dL Magnesium (1.6-2.3) mg/dL Total Bilirubin (0.2-1.3) mg/dL AST (17-59) U/L ALT (21-72) U/L Alkaline Phosphatase (38-126) U/L Total Protein (6.3-8.3) g/dL Albumin (3.5-5.0) g/dL Globulin (2.2-3.9) gm/dL Albumin/Globulin Ratio (1.0-2.1) Arterial Blood Potassium 3.6 (3.6-5.2) mmol/L 12/11/17 Range/Units 11:57 WBC (4.8-10.8) K/uL RBC (4.40-5.90) Mil/uL Hgb (12.0-18.0) g/dL Hct (35.0-51.0) % MCV (80.0-94.0) fL MCH (27.0-31.0) pg MCHC (33.0-37.0) g/dL RDW (11.5-14.5) % Plt Count (130-400) K/uL MPV (7.2-11.7) fL Neut % (Auto) (50.0-75.0) % Lymph % (Auto) (20.0-40.0) % Stokes % (Auto) (0.0-10.0) % Eos % (Auto) (0.0-4.0) % Baso % (Auto) (0.0-2.0) % Neut # (Auto) (1.8-7.0) K/uL Lymph # (Auto) (1.0-4.3) K/uL Stokes # (Auto) (0.0-0.8) K/uL Eos # (Auto) (0.0-0.7) K/uL Baso # (Auto) (0.0-0.2) K/uL Puncture Site pCO2 (35-45) mm/Hg pO2 (80-100) mm/Hg HCO3 (21-28) mmol/L ABG pH (7.35-7.45) ABG Total CO2 (22-28) mmol/L ABG O2 Saturation (95-98) % ABG Base Excess (-2.0-3.0) mmol/L Oscar Test ABG Potassium (3.6-5.2) mmol/L A-a O2 Difference mm/Hg Respiratory Index Sodium (132-148) mmol/l Chloride (98-107) mmol/L Glucose (75-110) mg/dl Lactate (0.7-2.1) mmol/L Vent Mode Mechanical Rate FiO2 % Tidal Volume PEEP Potassium (3.6-5.2) mmol/L Carbon Dioxide (22-30) mmol/L Anion Gap (10-20) BUN (9-20) mg/dL Creatinine (0.8-1.5) mg/dL Est GFR ( Amer) Est GFR (Non-Af Amer) POC Glucose (mg/dL) 157 H (65-110) mg/dL Random Glucose (75-110) mg/dL Calcium (8.6-10.4) mg/dl Phosphorus (2.5-4.5) mg/dL Magnesium (1.6-2.3) mg/dL Total Bilirubin (0.2-1.3) mg/dL AST (17-59) U/L ALT (21-72) U/L Alkaline Phosphatase (38-126) U/L Total Protein (6.3-8.3) g/dL Albumin (3.5-5.0) g/dL Globulin (2.2-3.9) gm/dL Albumin/Globulin Ratio (1.0-2.1) Arterial Blood Potassium (3.6-5.2) mmol/L Laboratory Results - last 24 hr 12/11/17 12/11/17 12/11/17 11:57 17:48 23:50 WBC RBC Hgb Hct MCV MCH MCHC RDW Plt Count MPV Neut % (Auto) Lymph % (Auto) Stokes % (Auto) Eos % (Auto) Baso % (Auto) Neut # (Auto) Lymph # (Auto) Stokes # (Auto) Eos # (Auto) Baso # (Auto) Puncture Site pCO2 pO2 HCO3 ABG pH ABG Total CO2 ABG O2 Saturation ABG Base Excess Oscar Test ABG Potassium A-a O2 Difference Respiratory Index Sodium Chloride Glucose Lactate Vent Mode Mechanical Rate FiO2 Tidal Volume PEEP Potassium Carbon Dioxide Anion Gap BUN Creatinine Est GFR ( Amer) Est GFR (Non-Af Amer) POC Glucose (mg/dL) 157 H 192 H 176 H Random Glucose Calcium Phosphorus Magnesium Total Bilirubin AST ALT Alkaline Phosphatase Total Protein Albumin Globulin Albumin/Globulin Ratio Arterial Blood Potassium 12/12/17 12/12/17 12/12/17 04:25 06:23 06:23 WBC 10.4 RBC 3.47 L Hgb 9.6 L Hct 28.3 L MCV 81.7 MCH 27.8 MCHC 34.0 RDW 16.9 H Plt Count 199 MPV 9.7 Neut % (Auto) 79.0 H Lymph % (Auto) 14.1 L Stokes % (Auto) 4.4 Eos % (Auto) 2.0 Baso % (Auto) 0.5 Neut # (Auto) 8.2 H Lymph # (Auto) 1.5 Stokes # (Auto) 0.5 Eos # (Auto) 0.2 Baso # (Auto) 0.1 Puncture Site Rr pCO2 48 H pO2 81 HCO3 31.8 H ABG pH 7.46 H ABG Total CO2 35.6 H ABG O2 Saturation 97.0 ABG Base Excess 8.8 H Oscar Test Pos ABG Potassium 3.6 A-a O2 Difference 287.0 Respiratory Index 3.5 Sodium 148.0 145 Chloride 114.0 H 105 Glucose 146 H Lactate 1.0 Vent Mode Prvc Mechanical Rate 16 FiO2 60.0 Tidal Volume 550 PEEP 5 Potassium 3.7 Carbon Dioxide 32 H Anion Gap 12 BUN 35 H Creatinine 1.1 Est GFR ( Amer) > 60 Est GFR (Non-Af Amer) > 60 POC Glucose (mg/dL) Random Glucose 137 H Calcium 8.1 L Phosphorus 3.3 Magnesium 2.6 H Total Bilirubin 0.5 AST 79 H D ALT 84 H D Alkaline Phosphatase 98 Total Protein 6.8 Albumin 2.9 L Globulin 3.9 Albumin/Globulin Ratio 0.8 L Arterial Blood Potassium 3.6 12/12/17 06:32 WBC RBC Hgb Hct MCV MCH MCHC RDW Plt Count MPV Neut % (Auto) Lymph % (Auto) Stokes % (Auto) Eos % (Auto) Baso % (Auto) Neut # (Auto) Lymph # (Auto) Stokes # (Auto) Eos # (Auto) Baso # (Auto) Puncture Site pCO2 pO2 HCO3 ABG pH ABG Total CO2 ABG O2 Saturation ABG Base Excess Oscar Test ABG Potassium A-a O2 Difference Respiratory Index Sodium Chloride Glucose Lactate Vent Mode Mechanical Rate FiO2 Tidal Volume PEEP Potassium Carbon Dioxide Anion Gap BUN Creatinine Est GFR ( Amer) Est GFR (Non-Af Amer) POC Glucose (mg/dL) 103 Random Glucose Calcium Phosphorus Magnesium Total Bilirubin AST ALT Alkaline Phosphatase Total Protein Albumin Globulin Albumin/Globulin Ratio Arterial Blood Potassium Fingerstick Blood Sugar Results: 103 Critical Care Progress Note - Nutrition Nutrition: Nutrition Category Date Time Status Heart Healthy Diet [DIET] Diets 11/30/17 Lunch Active Assessment/Plan - Assessment and Plan (Free Text) Assessment: -Neuro: prior CVA, awake alert following simple commands -Cardio:currently on dopamine, titrate to keep MAP >65 -Pulm: h/o COPD, hypoxia, continue ventilation to keep spo2 >92 and pH b/w 7.35- 7.45, patient tolerated CPAP for more than 4 hours yesterday -septic shock possible: continue abx de-escalate abx as per culture ns sensitivity -GI: continue tube feeds -VALORIE-resolved -h/o BPH: continue flomax 0.4mg QD, d/c sanders -Endo: no acute issues -Skin: pressure ulcer Vitamin C zinc sulfate PPx: pepcid 20mg QD -Heparin 5,000 units full code cc time 35 minutes
--- NOTE | 2017-12-12 09:58 | RAD ---
HISTORY: infiltrate COMPARISON: Chest x-ray performed 12/11/17 TECHNIQUE: Chest, one view. FINDINGS: Endotracheal tube terminates approximately 6.9 cm above the eri. Nasogastric tube extends expected location of the stomach. Left IJ approach central venous catheter extends to the brachiocephalic/SVC junction. LUNGS: Bilateral hilar prominence. Interstitial prominence may reflect infection or edema, stable to minimally decreased in extent. Small left pleural effusion. No definite pneumothorax. CARDIOVASCULAR: Heart size appears within normal limits. Ectatic aorta. Atherosclerotic calcifications. OSSEOUS STRUCTURES: Osseous demineralization. Degenerative changes. VISUALIZED UPPER ABDOMEN: Unremarkable. OTHER FINDINGS: None. IMPRESSION: Support lines and tubes as above. Bilateral hilar prominence. Interstitial prominence may reflect infection or edema, stable to minimally decreased in extent. Small left pleural effusion.
--- NOTE | 2017-12-12 10:13 | CP.PCM.PN ---
Subjective - Date & Time of Evaluation Date of Evaluation: 12/12/17 Time of Evaluation: 10:12 - Subjective Subjective: RENAL NOTE S: seen and examined, on ventilator vss gen: nad sclera anicteric op clear neck supple cv +s1+s2 lungs mechanical bs abd soft ext: no edema neuro: following commands psych nml affect skin no rash imp: ARF / Hypernatremia/ Anemia / Hypoxic respiratory failure / sepsis plan: VALORIE is improving continue supportive care avoid hypotension na is improving on abx vent weaning per icu Objective - Vital Signs/Intake and Output Vital Signs (last 24 hours): Temp Pulse Resp BP Pulse Ox 99.3 F 82 16 105/61 98 12/12/17 04:00 12/12/17 07:00 12/12/17 07:00 12/12/17 04:59 12/12/17 07:00 Intake and Output: 12/12/17 12/12/17 06:59 18:59 Intake Total 2031.5 91.9 Output Total 1750 90 Balance 281.5 1.9 - Medications Medications: Current Medications Acetaminophen (Tylenol 650mg/20.3ml Solution Ud) 650 mg PO Q6 PRN PRN Reason: Temperature Last Admin: 12/08/17 11:38 Dose: 650 mg Albuterol/Ipratropium (Duoneb 3 Mg/0.5 Mg (3 Ml) Ud) 3 ml INH RQ6 [facility] Last Admin: 12/12/17 08:09 Dose: 3 ml Ascorbic Acid (Vitamin C 500 Mg Tab) 500 mg PO DAILY [facility] Last Admin: 12/11/17 09:41 Dose: 500 mg Heparin Sodium (Porcine) (Heparin) 5,000 units SC Q8 ABHIJEET Last Admin: 12/12/17 06:00 Dose: 5,000 units Meropenem 500 mg/ Sodium (Chloride) 100 mls @ 100 mls/hr IVPB Q8 ABHIJEET Last Admin: 12/12/17 06:00 Dose: 100 mls/hr Dopamine HCl/Dextrose (Dopamine 400mg/250ml D5w) 400 mg in 250 mls @ 34.875 mls /hr IV .Q7H11M PRN; Protocol; 10 MCG/KG/MIN PRN Reason: TITRATE PER MD ORDER Last Admin: 12/12/17 00:46 Dose: 41.9 mcg/kg/min, 146.126 mls/hr Vancomycin/Sodium Chloride (Vancomycin 1 Gm/Ns 200 Ml) 1 gm in 200 mls @ 133 mls/hr IVPB Q12H ABHIJEET Stop: 12/17/17 09:31 Insulin Aspart (Novolog) 0 unit SC Q6H ABHIJEET PRN Reason: Protocol Last Admin: 12/12/17 06:00 Dose: Not Given Multivitamins (Hexavitamin) 1 tab PO DAILY ABHIJEET Last Admin: 12/11/17 09:41 Dose: 1 tab Zinc Sulfate (Zinc Sulfate 220 Mg Cap) 220 mg PO DAILY ABHIJEET Last Admin: 12/11/17 09:41 Dose: 220 mg - Labs Labs: 12/12/17 06:23 12/12/17 06:23 PT 16.6 SECONDS (9.7-12.2) H 11/26/17 17:31 INR 1.5 11/26/17 17:31 APTT 31 SECONDS (21-34) 11/26/17 17:31
[2017-12-12] MEDS: Vancomycin 1 gm/NS 200 ml 1 GM/200 ML BAG IVPB SCH ×2 (10:31→21:08)
[2017-12-12] MEDS: Multiple Vitamins Tab PO SCH (11:17)
--- NOTE | 2017-12-12 16:00 | CP.PCM.PN ---
Subjective - Date & Time of Evaluation Date of Evaluation: 12/12/17 Time of Evaluation: 09:00 - Subjective Subjective: INTUBATED ON PRESSORS NAD Objective - Vital Signs/Intake and Output Vital Signs (last 24 hours): Temp Pulse Resp BP Pulse Ox 99.3 F 82 16 105/61 98 12/12/17 04:00 12/12/17 07:00 12/12/17 07:00 12/12/17 04:59 12/12/17 07:00 Intake and Output: 12/12/17 12/12/17 06:59 18:59 Intake Total 2031.5 91.9 Output Total 1750 90 Balance 281.5 1.9 - Medications Medications: Current Medications Acetaminophen (Tylenol 650mg/20.3ml Solution Ud) 650 mg PO Q6 PRN PRN Reason: Temperature Last Admin: 12/08/17 11:38 Dose: 650 mg Albuterol/Ipratropium (Duoneb 3 Mg/0.5 Mg (3 Ml) Ud) 3 ml INH RQ6 [facility]HIJEET Last Admin: 12/12/17 14:03 Dose: 3 ml Ascorbic Acid (Vitamin C 500 Mg Tab) 500 mg PO DAILY [facility]HIJEET Last Admin: 12/12/17 10:16 Dose: 500 mg Meropenem 500 mg/ Sodium (Chloride) 100 mls @ 100 mls/hr IVPB Q8 ABHIJEET Last Admin: 12/12/17 06:00 Dose: 100 mls/hr Vancomycin/Sodium Chloride (Vancomycin 1 Gm/Ns 200 Ml) 1 gm in 200 mls @ 133 mls/hr IVPB Q12H ABHIJEET Stop: 12/17/17 09:31 Dopamine HCl/Dextrose (Dopamine 400mg/250ml D5w) 400 mg in 250 mls @ 38.785 mls /hr IV .Q6H27M PRN; Protocol; 12 MCG/KG/MIN PRN Reason: TITRATE PER MD ORDER Insulin Aspart (Novolog) 0 unit SC Q6H ABHIJEET PRN Reason: Protocol Last Admin: 12/12/17 06:00 Dose: Not Given Multivitamins (Hexavitamin) 1 tab PO DAILY ABHIJEET Last Admin: 12/12/17 11:17 Dose: 1 tab Zinc Sulfate (Zinc Sulfate 220 Mg Cap) 220 mg PO DAILY [facility]HIJEET Last Admin: 12/12/17 10:17 Dose: 220 mg - Labs Labs: 12/12/17 06:23 12/12/17 06:23 PT 16.6 SECONDS (9.7-12.2) H 11/26/17 17:31 INR 1.5 11/26/17 17:31 APTT 31 SECONDS (21-34) 11/26/17 17:31 - Constitutional Appears: Non-toxic, Chronically Ill - Head Exam Head Exam: NORMOCEPHALIC - Eye Exam Eye Exam: PERRL - ENT Exam ENT Exam: Mucous Membranes Dry - Neck Exam Neck Exam: absent: Lymphadenopathy - Respiratory Exam Respiratory Exam: Decreased Breath Sounds - Cardiovascular Exam Cardiovascular Exam: REGULAR RHYTHM - GI/Abdominal Exam GI & Abdominal Exam: Distended, Soft - Rectal Exam Rectal Exam: Deferred - Exam Exam: NORMAL INSPECTION - Extremities Exam Extremities Exam: absent: Pedal Edema - Back Exam Back Exam: absent: CVA tenderness (L), CVA tenderness (R) - Neurological Exam Neurological Exam: Altered Assessment and Plan (1) Acute urinary retention Status: Acute (2) Fever Status: Acute (3) Sepsis associated hypotension Status: Acute (4) Pneumonia Status: Acute (5) Respiratory failure Status: Acute - Assessment and Plan (Free Text) Assessment: IV VANCO REORDERED
--- NOTE | 2017-12-12 16:21 | CP.PCM.PN ---
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 PT STABLE ON LOW DOSE DOPAMINE. AT BEDSIDE. PT AWAKE AND OPENING EYES. Objective - Vital Signs/Intake and Output Vital Signs (last 24 hours): Temp Pulse Resp BP Pulse Ox 99.3 F 96 H 24 105/61 96 12/12/17 04:00 12/12/17 16:00 12/12/17 16:00 12/12/17 04:59 12/12/17 16:00 Intake and Output: 12/12/17 12/12/17 06:59 18:59 Intake Total 2031.5 1014.0 Output Total 1750 360 Balance 281.5 654.0 - Medications Medications: Current Medications Acetaminophen (Tylenol 650mg/20.3ml Solution Ud) 650 mg PO Q6 PRN PRN Reason: Temperature Last Admin: 12/08/17 11:38 Dose: 650 mg Albuterol/Ipratropium (Duoneb 3 Mg/0.5 Mg (3 Ml) Ud) 3 ml INH RQ6 [facility] Last Admin: 12/12/17 14:03 Dose: 3 ml Ascorbic Acid (Vitamin C 500 Mg Tab) 500 mg PO DAILY [facility] Last Admin: 12/12/17 10:16 Dose: 500 mg Meropenem 500 mg/ Sodium (Chloride) 100 mls @ 100 mls/hr IVPB Q8 [facility] Last Admin: 12/12/17 06:00 Dose: 100 mls/hr Vancomycin/Sodium Chloride (Vancomycin 1 Gm/Ns 200 Ml) 1 gm in 200 mls @ 133 mls/hr IVPB Q12H [facility]HI[facility] Stop: 12/17/17 09:31 Dopamine HCl/Dextrose (Dopamine 400mg/250ml D5w) 400 mg in 250 mls @ 38.785 mls /hr IV .Q6H27M PRN; Protocol; 12 MCG/KG/MIN PRN Reason: TITRATE PER MD ORDER Insulin Aspart (Novolog) 0 unit SC Q6H ABHIJEET PRN Reason: Protocol Last Admin: 12/12/17 06:00 Dose: Not Given Multivitamins (Hexavitamin) 1 tab PO DAILY [facility] Last Admin: 12/12/17 11:17 Dose: 1 tab Zinc Sulfate (Zinc Sulfate 220 Mg Cap) 220 mg PO DAILY [facility] Last Admin: 12/12/17 10:17 Dose: 220 mg - Labs Labs: 12/12/17 06:23 12/12/17 06:23 PT 16.6 SECONDS (9.7-12.2) H 11/26/17 17:31 INR 1.5 11/26/17 17:31 APTT 31 SECONDS (21-34) 11/26/17 17:31 - Constitutional Appears: Chronically Ill - Head Exam Head Exam: ATRAUMATIC, NORMAL INSPECTION, NORMOCEPHALIC - Eye Exam Eye Exam: EOMI, Normal appearance, PERRL. absent: Conjunctival injection, Nystagmus, Periorbital swelling, Periorbital tenderness, Scleral icterus Pupil Exam: NORMAL ACCOMODATION, PERRL - ENT Exam ENT Exam: Mucous Membranes Moist, Normal Exam. absent: Mucous Membranes Dry, Normal External Ear Exam, Normal Oropharynx, TM's Normal Bilaterally - Neck Exam Neck Exam: Full ROM, Normal Inspection. absent: Lymphadenopathy - Respiratory Exam Additional comments: INTUBATED. MILD CRACKLES ON LEFT ANTERIORLY. - Cardiovascular Exam Cardiovascular Exam: REGULAR RHYTHM, +S1, +S2, Murmur. absent: Bradycardia, Tachycardia, Clicks, Diastolic murmur, Gallop, Irregular Rhythm, JVD, RRR, Rubs , +S4 - GI/Abdominal Exam GI & Abdominal Exam: Soft, Normal Bowel Sounds. absent: Bruit, Distended, Firm , Guarding, Rigid, Tenderness, Diminished Bowel Sounds, Hernia, Hyperactive Bowel Sounds, Hypoactive Bowel Sounds, Organomegaly, Pulsatile Mass, Rebound, Mass - Rectal Exam Rectal Exam: Deferred - Extremities Exam Additional comments: DRESSING RLE CDI - Back Exam Back Exam: NORMAL INSPECTION. absent: CVA tenderness (L), CVA tenderness (R), Full ROM, muscle spasm, paraspinal tenderness, rash noted, tenderness, vertebral tenderness - Neurological Exam Neurological Exam: Awake. absent: Abnormal Gait, Alert, Altered, CN II-XII Intact, Motor Sensory Deficit, Normal Gait, Oriented x3, Reflexes Normal - Psychiatric Exam Psychiatric exam: absent: Agitated, Anxious, Depressed, Flat Affect, Homicidal Ideation, Manic, Normal Affect, Normal Mood, Suicidal Ideation - Skin Skin Exam: Abrasion, Normal Color Assessment and Plan (1) Acute kidney injury Status: Acute (2) CHF exacerbation Status: Acute (3) Cardiac arrest Status: Acute (4) Pneumonia Status: Acute (5) Respiratory failure Status: Acute (6) Sepsis associated hypotension Status: Acute - Assessment and Plan (Free Text) Plan: CONTINUE LOW DOSE DOPAMINE. BETA BLOCKERS ONCE BP STABILIZES.
[2017-12-13] MEDS: Albuterol-Ipratrop 3 mg / 0.5 (3 ml) UD INH SCH ×3 (01:07→13:03)
[2017-12-13 04:31] LABS: ABG ALLEN TEST POS; ARTERIAL BLOOD GAS HCO3 30.1 mmol/L (21-28); ARTERIAL BLOOD GAS HEMOGLOBIN 17.6 g/dL (11.7-17.4); ARTERIAL BLOOD GAS O2 SAT 94.7 % (95-98); ARTERIAL BLOOD GAS PCO2 42 mm/Hg (35-45); ARTERIAL BLOOD GAS PH 7.48 (7.35-7.45); ARTERIAL BLOOD GAS PO2 64 mm/Hg (80-100); ARTERIAL BLOOD GAS TCO2 32.6 mmol/L (22-28)
[2017-12-13] MEDS: Meropenem 500 MG in Sodium Chloride 0.9% 100 ML IVPB SCH ×3 (05:43→22:00)
[2017-12-13] MEDS: DOPamine 400mg/250ml D5W 400 MG/250 ML BAG IV PRN ×3 (05:58→17:37)
[2017-12-13] MEDS: (Novolog) Insulin Aspart, Recombinant 100 u/ml 10 ml vial SC SCH ×4 (06:00→17:37)
[2017-12-13 06:47] LABS: BASO # 0.1 K/uL (0.0-0.2); MEAN CORPUSCULAR HEMOGLOBIN 27.6 pg (27.0-31.0); MONO # 0.4 K/uL (0.0-0.8)
[2017-12-13 07:02] LABS: ALB/GLOB RATIO 0.8 (1.0-2.1); ALBUMIN 2.9 g/dL (3.5-5.0); ALT/SGPT 141 U/L (21-72); AST/SGOT 108 U/L (17-59); BLOOD UREA NITROGEN 33 mg/dL (9-20); CALCIUM 8.2 mg/dl (8.6-10.4); GFR AFRICAN-AMERICAN > 60; GFR NON-AFRICAN AMERICAN 60; MAGNESIUM 2.5 mg/dL (1.6-2.3)
[2017-12-13 07:03] LABS: BASO % 0.7 % (0.0-2.0); EOS # 0.2 K/uL (0.0-0.7); EOS % 1.8 % (0.0-4.0); HEMOGLOBIN 9.5 g/dL (12.0-18.0); INR 1.2; LYMPH # 1.5 K/uL (1.0-4.3); MEAN CELL VOLUME 82.6 fL (80.0-94.0); MEAN CORPUSCULAR HGB CONC 33.4 g/dL (33.0-37.0); MEAN PLATELET VOLUME 9.8 fL (7.2-11.7); MONO % 4.2 % (0.0-10.0); NEUT # 7.6 K/uL (1.8-7.0); NEUT % 78.3 % (50.0-75.0); PROTHROMBIN TIME 13.5 SECONDS (9.7-12.2); RBC 3.45 Mil/uL (4.40-5.90); RED CELL DISTRIBUTION WIDTH 16.8 % (11.5-14.5); WHITE BLOOD COUNT 9.8 K/uL (4.8-10.8)
--- NOTE | 2017-12-13 08:37 | RAD ---
Chest x-ray single frontal view History: MRSA. Pneumonia. Comparison: 12/12/2017 Findings: Lines and tubes in stable position. Postsurgical changes in the cervical spine. Biapical pleural thickening with upper lobe granulomatous changes. Prominent diffuse increased interstitial lung markings. Consolidative changes at the left lung base with small left pleural effusion. Bilateral hilar prominence. Tortuous ectatic aorta. Mild cardiomegaly. Degenerative changes in the spine and shoulders. Impression: Lines and tubes in stable position. Postsurgical changes in the cervical spine. Biapical pleural thickening with upper lobe granulomatous changes. Prominent diffuse increased interstitial lung markings. Consolidative changes at the left lung base with small left pleural effusion. Bilateral hilar prominence. Tortuous ectatic aorta. Mild cardiomegaly.
[2017-12-13] MEDS: Albumin Human 25% (12.5 gm/50 ml) IV SCH ×2 (10:05→17:41)
[2017-12-13] MEDS: Multiple Vitamins Tab PO SCH (10:06)
[2017-12-13] MEDS: Vancomycin 1 gm/NS 200 ml 1 GM/200 ML BAG IVPB SCH ×2 (10:06→22:00)
--- NOTE | 2017-12-13 10:07 | PN ---
DATE: The patient on ventilator, supportive care, difficult to wean him. . Adrianne Stanley MD
--- NOTE | 2017-12-13 10:32 | CP.PCM.PN ---
Subjective - Date & Time of Evaluation Date of Evaluation: 12/13/17 Time of Evaluation: 08:00 - Subjective Subjective: MRSA sputum and blood IV rx in progress will cont rx Objective - Vital Signs/Intake and Output Vital Signs (last 24 hours): Temp Pulse Resp BP Pulse Ox 98.8 F 87 18 121/69 96 12/13/17 04:00 12/13/17 07:00 12/13/17 07:00 12/13/17 06:59 12/13/17 07:00 Intake and Output: 12/13/17 12/13/17 06:59 18:59 Intake Total 1375.7 450 Output Total 1100 175 Balance 275.7 275 - Medications Medications: Current Medications Acetaminophen (Tylenol 650mg/20.3ml Solution Ud) 650 mg PO Q6 PRN PRN Reason: Temperature Last Admin: 12/08/17 11:38 Dose: 650 mg Albumin Human (Albumin Human 25% (12.5 Gm/50 Ml)) 12.5 gm IV BID [facility] Stop: 12/15/17 10:01 Last Admin: 12/13/17 10:05 Dose: 12.5 gm Albuterol/Ipratropium (Duoneb 3 Mg/0.5 Mg (3 Ml) Ud) 3 ml INH RQ6 [facility] Last Admin: 12/13/17 07:59 Dose: 3 ml Ascorbic Acid (Vitamin C 500 Mg Tab) 500 mg PO DAILY [facility] Last Admin: 12/13/17 10:06 Dose: 500 mg Heparin Sodium (Porcine) (Heparin) 5,000 units SC Q8 [facility] Last Admin: 12/13/17 05:43 Dose: 5,000 units Meropenem 500 mg/ Sodium (Chloride) 100 mls @ 100 mls/hr IVPB Q8 [facility] Last Admin: 12/13/17 05:43 Dose: 100 mls/hr Vancomycin/Sodium Chloride (Vancomycin 1 Gm/Ns 200 Ml) 1 gm in 200 mls @ 133 mls/hr IVPB Q12H [facility] Stop: 12/17/17 09:31 Last Admin: 12/13/17 10:06 Dose: 133 mls/hr Dopamine HCl/Dextrose (Dopamine 400mg/250ml D5w) 400 mg in 250 mls @ 38.785 mls /hr IV .Q6H27M PRN; Protocol; 12 MCG/KG/MIN PRN Reason: TITRATE PER MD ORDER Last Admin: 12/13/17 05:58 Dose: 15.47 mcg/kg/min, 50 mls/hr Insulin Aspart (Novolog) 0 unit SC Q6H [facility] PRN Reason: Protocol Last Admin: 12/13/17 06:00 Dose: Not Given Midodrine (Proamatine) 2.5 mg PO TID [facility] Last Admin: 12/13/17 10:06 Dose: 2.5 mg Multivitamins (Hexavitamin) 1 tab PO DAILY [facility] Last Admin: 12/13/17 10:06 Dose: 1 tab Zinc Sulfate (Zinc Sulfate 220 Mg Cap) 220 mg PO DAILY [facility] Last Admin: 12/13/17 10:06 Dose: 220 mg - Labs Labs: 12/13/17 06:38 12/13/17 06:37 PT 13.5 SECONDS (9.7-12.2) H 12/13/17 06:38 INR 1.2 12/13/17 06:38 APTT 31 SECONDS (21-34) 11/26/17 17:31 - Constitutional Appears: Chronically Ill - Head Exam Head Exam: ATRAUMATIC, NORMAL INSPECTION, NORMOCEPHALIC - Eye Exam Eye Exam: absent: Scleral icterus - ENT Exam ENT Exam: Mucous Membranes Dry - Neck Exam Neck Exam: absent: Lymphadenopathy - Respiratory Exam Respiratory Exam: Decreased Breath Sounds, Rhonchi - Cardiovascular Exam Cardiovascular Exam: REGULAR RHYTHM - GI/Abdominal Exam GI & Abdominal Exam: Distended, Soft - Rectal Exam Rectal Exam: Deferred - Exam Exam: NORMAL INSPECTION Assessment and Plan (1) Acute urinary retention Status: Acute (2) Fever Status: Acute (3) Sepsis associated hypotension Status: Acute (4) Pneumonia Status: Acute (5) Respiratory failure Status: Acute
--- NOTE | 2017-12-13 10:34 | VASCLAB ---
PROCEDURE: Lower Extremity Venous Duplex Exam. HISTORY: Leg swelling PRIORS: None. TECHNIQUE: Bilateral common femoral, femoral, popliteal and posterior tibial, peroneal and great saphenous veins were evaluated. Flow was assessed with color Doppler, compressibility, assessment of phasic flow and augmentation response. Report prepared by ROLAND Villanueva, RVT FINDINGS: RIGHT: 1. Common Femoral Vein: 1.1. Compressibility - Fully compressible: Thrombus - None : Flow - Phasic: Augmentation -Normal: Reflux - None. 2. Femoral Vein: 2.1. Compressibility - Fully compressible: Thrombus - None : Flow - Phasic: Augmentation -Normal: Reflux - None. 3. Popliteal Vein: 3.1. Compressibility - Fully compressible: Thrombus - None : Flow - Phasic: Augmentation -Normal: Reflux - None. 4. Posterior Tibial Vein: 4.1. Compressibility - : Thrombus - : Flow - : Augmentation -: Reflux - . 5. Peroneal Vein: 5.1. Compressibility - : Thrombus - : Flow - : Augmentation -: Reflux - . 6. Great Saphenous Vein: 6.1. Compressibility - Fully compressible: Thrombus - None: Flow - Phasic: Augmentation - Normal: Reflux - None. LEFT: 1. Common Femoral Vein: 1.1. Compressibility - Fully compressible: Thrombus - None: Flow - Phasic: Augmentation -Normal: Reflux - None. 2. Femoral Vein: 2.1. Compressibility - Fully compressible: Thrombus - None: Flow - Phasic: Augmentation -Normal: Reflux - None. 3. Popliteal Vein: 3.1. Compressibility - Fully compressible: Thrombus - None : Flow - Phasic: Augmentation -Normal: Reflux - None. 4. Posterior Tibial Vein: 4.1. Compressibility - : Thrombus - : Flow - : Augmentation -: Reflux - . 5. Peroneal Vein: 5.1. Compressibility - : Thrombus - : Flow - : Augmentation -: Reflux - . 6. Great Saphenous Vein: 6.1. Compressibility - Fully compressible: Thrombus - None: Flow - Phasic: Augmentation - Normal: Reflux - None. OTHER FINDINGS: Due to swelling in the calves, the peroneal and posterior tibial vein are not visualized. Bilateral greater saphenous vein has been previously removed. IMPRESSION: Right: No evidence of deep or superficial vein thrombosis of the right lower extremity. Normal valve function noted of the right side. Left: No evidence of deep or superficial vein thrombosis of the left lower extremity. Normal valve function noted of the left side.
--- NOTE | 2017-12-13 11:38 | CP.CCUPN ---
CCU Subjective - Physician Review Subjective (Free Text): Patient seen and examined at bedside intubated continues to require dopamine for hypotension/bradycardia Brought to ER on 11/26/17 via ambulance from assisted for SOB and hypotension. Subsequently admitted to the medical service. LATHE MACHINIST called on for respiratory arrest. Pt was intubated had external pacing and temporary transcutaneous pacing wire. Now removed and placed on dopamine. NO acute events overnight. Patient continues to be on dopamine. Now also with MRSA pneumonia. Today pt seen and examined bedside. Pt is awake, alert and follows commands. Still intubated. PMhx: COPD, CHF, CVA, HTN, BPH Shx: vertebral fusion, PEG Allergies: ASA, keterolac, NSAIDs Social: denied (chart review) Family hx: (denied chart review) 12/13/17 11:43 CCU Objective - Vital Signs / Intake & Output Vital Signs (Last 4 hours): Vital Signs BP 12/13/17 11:16 81/26 L Intake and Output (Last 8hrs): Intake & Output 12/12/17 12/13/17 12/13/17 22:59 06:59 14:59 Intake Total 976.4 750 700 Output Total 645 675 175 Balance 331.4 75 525 Weight 169 lb Intake: IV 250 250 250 Intake, IV Amount 501.4 500 450 Left Medial Port Internal 200 100 50 Jugular Left Proximal Port 301.4 400 200 Internal Jugular Right Distal Port 200 Tube Feeding 225 0 Output: Urine 645 675 175 Urethral (Singh) 645 675 175 Other: # Bowel Movements 1 1 - Physical Exam Head: Positive for: Atraumatic, Normocephalic Pupils: Positive for: PERRL Mouth: Positive for: Moist Mucous Membranes Respiratory/Chest: Positive for: Other (intubated) Abdomen: Positive for: Normal Bowel Sounds. Negative for: Tenderness, Distention, Peritoneal Signs Psychiatric: Positive for: Alert, Oriented x 3 - Medications Active Medications: Active Medications Generic Name Dose Route Start Last Admin Trade Name Freq PRN Reason Stop Dose Admin Acetaminophen 650 mg 12/06/17 09:30 12/08/17 11:38 Tylenol 650mg/20.3ml Solution Ud PO 650 mg Q6 PRN Administration Temperature Albumin Human 12.5 gm 12/13/17 10:00 12/13/17 10:05 Albumin Human 25% (12.5 Gm/50 Ml) IV 12/15/17 10:01 12.5 gm BID ABHIJEET Administration Albuterol/Ipratropium 3 ml 12/03/17 14:00 12/13/17 07:59 Duoneb 3 Mg/0.5 Mg (3 Ml) Ud INH 3 ml RQ6 [facility] Administration Ascorbic Acid 500 mg 12/05/17 10:00 12/13/17 10:06 Vitamin C 500 Mg Tab PO 500 mg DAILY [facility] Administration Heparin Sodium (Porcine) 5,000 units 12/12/17 22:00 12/13/17 05:43 Heparin SC 5,000 units Q8 [facility] Administration Meropenem 500 mg/ Sodium 100 mls @ 100 mls/hr 12/06/17 14:00 12/13/17 05:43 Chloride IVPB 100 mls/hr Q8 [facility] Administration Vancomycin/Sodium Chloride 1 gm in 200 mls @ 133 mls/hr 12/12/17 09:30 10:06 Vancomycin 1 Gm/Ns 200 Ml IVPB 12/17/17 09:31 133 mls/hr Q12H [facility] Administration Dopamine HCl/Dextrose 400 mg in 250 mls @ 38.785 mls/hr 12/12/17 15:18 11:16 Dopamine 400mg/250ml D5w IV 15.47 mcg/kg/min .Q6H27M PRN 50 mls/hr TITRATE PER MD ORDER Administration Protocol 12 MCG/KG/MIN Insulin Aspart 0 unit 12/02/17 18:00 12/13/17 06:00 Novolog SC Not Given Q6H [facility] Protocol Midodrine 2.5 mg 12/13/17 10:00 12/13/17 10:06 Proamatine PO 2.5 mg TID [facility] Administration Multivitamins 1 tab 12/07/17 10:00 12/13/17 10:06 Hexavitamin PO 1 tab DAILY [facility] Administration Zinc Sulfate 220 mg 12/02/17 10:00 12/13/17 10:06 Zinc Sulfate 220 Mg Cap PO 220 mg DAILY [facility] Administration - Patient Studies Lab Studies: Lab Studies 12/13/17 12/13/17 12/13/17 Range/Units 06:38 06:38 06:37 WBC 9.8 (4.8-10.8) K/uL RBC 3.45 L (4.40-5.90) Mil/uL Hgb 9.5 L (12.0-18.0) g/dL Hct 28.5 L (35.0-51.0) % MCV 82.6 (80.0-94.0) fL MCH 27.6 (27.0-31.0) pg MCHC 33.4 (33.0-37.0) g/dL RDW 16.8 H (11.5-14.5) % Plt Count 219 (130-400) K/uL MPV 9.8 (7.2-11.7) fL Neut % (Auto) 78.3 H (50.0-75.0) % Lymph % (Auto) 15.0 L (20.0-40.0) % Cassia % (Auto) 4.2 (0.0-10.0) % Eos % (Auto) 1.8 (0.0-4.0) % Baso % (Auto) 0.7 (0.0-2.0) % Neut # (Auto) 7.6 H (1.8-7.0) K/uL Lymph # (Auto) 1.5 (1.0-4.3) K/uL Cassia # (Auto) 0.4 (0.0-0.8) K/uL Eos # (Auto) 0.2 (0.0-0.7) K/uL Baso # (Auto) 0.1 (0.0-0.2) K/uL PT 13.5 H (9.7-12.2) SECONDS INR 1.2 Puncture Site pCO2 (35-45) mm/Hg pO2 (80-100) mm/Hg HCO3 (21-28) mmol/L ABG pH (7.35-7.45) ABG Total CO2 (22-28) mmol/L ABG O2 Saturation (95-98) % ABG Base Excess (-2.0-3.0) mmol/L ABG Hemoglobin (11.7-17.4) g/dL ABG Carboxyhemoglobin (0.5-1.5) % POC ABG HHb (Measured) (0.0-5.0) % ABG Methemoglobin (0.0-3.0) % Oscar Test A-a O2 Difference mm/Hg Respiratory Index Hgb O2 Saturation (95.0-98.0) % Vent Mode Mechanical Rate FiO2 % Tidal Volume PEEP Sodium 143 (132-148) mmol/L Potassium 3.8 (3.6-5.2) mmol/L Chloride 108 H (98-107) mmol/L Carbon Dioxide 27 (22-30) mmol/L Anion Gap 12 (10-20) BUN 33 H (9-20) mg/dL Creatinine 1.2 (0.8-1.5) mg/dL Est GFR ( Amer) > 60 Est GFR (Non-Af Amer) 60 POC Glucose (mg/dL) (65-110) mg/dL Random Glucose 127 H (75-110) mg/dL Calcium 8.2 L (8.6-10.4) mg/dl Phosphorus 3.2 (2.5-4.5) mg/dL Magnesium 2.5 H (1.6-2.3) mg/dL Total Bilirubin 0.4 (0.2-1.3) mg/dL AST 108 H D (17-59) U/L ALT 141 H D (21-72) U/L Alkaline Phosphatase 83 (38-126) U/L Total Protein 6.5 (6.3-8.3) g/dL Albumin 2.9 L (3.5-5.0) g/dL Globulin 3.6 (2.2-3.9) gm/dL Albumin/Globulin Ratio 0.8 L (1.0-2.1) 12/13/17 12/13/17 12/13/17 Range/Units 05:28 04:25 00:02 WBC (4.8-10.8) K/uL RBC (4.40-5.90) Mil/uL Hgb (12.0-18.0) g/dL Hct (35.0-51.0) % MCV (80.0-94.0) fL MCH (27.0-31.0) pg MCHC (33.0-37.0) g/dL RDW (11.5-14.5) % Plt Count (130-400) K/uL MPV (7.2-11.7) fL Neut % (Auto) (50.0-75.0) % Lymph % (Auto) (20.0-40.0) % Cassia % (Auto) (0.0-10.0) % Eos % (Auto) (0.0-4.0) % Baso % (Auto) (0.0-2.0) % Neut # (Auto) (1.8-7.0) K/uL Lymph # (Auto) (1.0-4.3) K/uL Cassia # (Auto) (0.0-0.8) K/uL Eos # (Auto) (0.0-0.7) K/uL Baso # (Auto) (0.0-0.2) K/uL PT (9.7-12.2) SECONDS INR Puncture Site Rr pCO2 42 (35-45) mm/Hg pO2 64 L (80-100) mm/Hg HCO3 30.1 H (21-28) mmol/L ABG pH 7.48 H (7.35-7.45) ABG Total CO2 32.6 H (22-28) mmol/L ABG O2 Saturation 94.7 L (95-98) % ABG Base Excess 6.9 H (-2.0-3.0) mmol/L ABG Hemoglobin 17.6 H (11.7-17.4) g/dL ABG Carboxyhemoglobin 1.7 H (0.5-1.5) % POC ABG HHb (Measured) 5.2 H (0.0-5.0) % ABG Methemoglobin 0.6 (0.0-3.0) % Oscar Test Pos A-a O2 Difference 169.0 mm/Hg Respiratory Index 2.6 Hgb O2 Saturation 92.5 L (95.0-98.0) % Vent Mode Prvc Mechanical Rate 10 FiO2 40.0 % Tidal Volume 550 PEEP 5 Sodium (132-148) mmol/L Potassium (3.6-5.2) mmol/L Chloride (98-107) mmol/L Carbon Dioxide (22-30) mmol/L Anion Gap (10-20) BUN (9-20) mg/dL Creatinine (0.8-1.5) mg/dL Est GFR ( Amer) Est GFR (Non-Af Amer) POC Glucose (mg/dL) 140 H 138 H (65-110) mg/dL Random Glucose (75-110) mg/dL Calcium (8.6-10.4) mg/dl Phosphorus (2.5-4.5) mg/dL Magnesium (1.6-2.3) mg/dL Total Bilirubin (0.2-1.3) mg/dL AST (17-59) U/L ALT (21-72) U/L Alkaline Phosphatase (38-126) U/L Total Protein (6.3-8.3) g/dL Albumin (3.5-5.0) g/dL Globulin (2.2-3.9) gm/dL Albumin/Globulin Ratio (1.0-2.1) 12/12/17 12/12/17 Range/Units 17:52 12:15 WBC (4.8-10.8) K/uL RBC (4.40-5.90) Mil/uL Hgb (12.0-18.0) g/dL Hct (35.0-51.0) % MCV (80.0-94.0) fL MCH (27.0-31.0) pg MCHC (33.0-37.0) g/dL RDW (11.5-14.5) % Plt Count (130-400) K/uL MPV (7.2-11.7) fL Neut % (Auto) (50.0-75.0) % Lymph % (Auto) (20.0-40.0) % Cassia % (Auto) (0.0-10.0) % Eos % (Auto) (0.0-4.0) % Baso % (Auto) (0.0-2.0) % Neut # (Auto) (1.8-7.0) K/uL Lymph # (Auto) (1.0-4.3) K/uL Cassia # (Auto) (0.0-0.8) K/uL Eos # (Auto) (0.0-0.7) K/uL Baso # (Auto) (0.0-0.2) K/uL PT (9.7-12.2) SECONDS INR Puncture Site pCO2 (35-45) mm/Hg pO2 (80-100) mm/Hg HCO3 (21-28) mmol/L ABG pH (7.35-7.45) ABG Total CO2 (22-28) mmol/L ABG O2 Saturation (95-98) % ABG Base Excess (-2.0-3.0) mmol/L ABG Hemoglobin (11.7-17.4) g/dL ABG Carboxyhemoglobin (0.5-1.5) % POC ABG HHb (Measured) (0.0-5.0) % ABG Methemoglobin (0.0-3.0) % Oscar Test A-a O2 Difference mm/Hg Respiratory Index Hgb O2 Saturation (95.0-98.0) % Vent Mode Mechanical Rate FiO2 % Tidal Volume PEEP Sodium (132-148) mmol/L Potassium (3.6-5.2) mmol/L Chloride (98-107) mmol/L Carbon Dioxide (22-30) mmol/L Anion Gap (10-20) BUN (9-20) mg/dL Creatinine (0.8-1.5) mg/dL Est GFR ( Amer) Est GFR (Non-Af Amer) POC Glucose (mg/dL) 150 H 162 H (65-110) mg/dL Random Glucose (75-110) mg/dL Calcium (8.6-10.4) mg/dl Phosphorus (2.5-4.5) mg/dL Magnesium (1.6-2.3) mg/dL Total Bilirubin (0.2-1.3) mg/dL AST (17-59) U/L ALT (21-72) U/L Alkaline Phosphatase (38-126) U/L Total Protein (6.3-8.3) g/dL Albumin (3.5-5.0) g/dL Globulin (2.2-3.9) gm/dL Albumin/Globulin Ratio (1.0-2.1) Laboratory Results - last 24 hr 12/12/17 12/12/17 12/13/17 12:15 17:52 00:02 WBC RBC Hgb Hct MCV MCH MCHC RDW Plt Count MPV Neut % (Auto) Lymph % (Auto) Cassia % (Auto) Eos % (Auto) Baso % (Auto) Neut # (Auto) Lymph # (Auto) Cassia # (Auto) Eos # (Auto) Baso # (Auto) PT INR Puncture Site pCO2 pO2 HCO3 ABG pH ABG Total CO2 ABG O2 Saturation ABG Base Excess ABG Hemoglobin ABG Carboxyhemoglobin POC ABG HHb (Measured) ABG Methemoglobin Oscar Test A-a O2 Difference Respiratory Index Hgb O2 Saturation Vent Mode Mechanical Rate FiO2 Tidal Volume PEEP Sodium Potassium Chloride Carbon Dioxide Anion Gap BUN Creatinine Est GFR ( Amer) Est GFR (Non-Af Amer) POC Glucose (mg/dL) 162 H 150 H 138 H Random Glucose Calcium Phosphorus Magnesium Total Bilirubin AST ALT Alkaline Phosphatase Total Protein Albumin Globulin Albumin/Globulin Ratio 12/13/17 12/13/17 12/13/17 04:25 05:28 06:37 WBC RBC Hgb Hct MCV MCH MCHC RDW Plt Count MPV Neut % (Auto) Lymph % (Auto) Cassia % (Auto) Eos % (Auto) Baso % (Auto) Neut # (Auto) Lymph # (Auto) Cassia # (Auto) Eos # (Auto) Baso # (Auto) PT INR Puncture Site Rr pCO2 42 pO2 64 L HCO3 30.1 H ABG pH 7.48 H ABG Total CO2 32.6 H ABG O2 Saturation 94.7 L ABG Base Excess 6.9 H ABG Hemoglobin 17.6 H ABG Carboxyhemoglobin 1.7 H POC ABG HHb (Measured) 5.2 H ABG Methemoglobin 0.6 Oscar Test Pos A-a O2 Difference 169.0 Respiratory Index 2.6 Hgb O2 Saturation 92.5 L Vent Mode Prvc Mechanical Rate 10 FiO2 40.0 Tidal Volume 550 PEEP 5 Sodium 143 Potassium 3.8 Chloride 108 H Carbon Dioxide 27 Anion Gap 12 BUN 33 H Creatinine 1.2 Est GFR ( Amer) > 60 Est GFR (Non-Af Amer) 60 POC Glucose (mg/dL) 140 H Random Glucose 127 H Calcium 8.2 L Phosphorus 3.2 Magnesium 2.5 H Total Bilirubin 0.4 AST 108 H D ALT 141 H D Alkaline Phosphatase 83 Total Protein 6.5 Albumin 2.9 L Globulin 3.6 Albumin/Globulin Ratio 0.8 L 12/13/17 12/13/17 06:38 06:38 WBC 9.8 RBC 3.45 L Hgb 9.5 L Hct 28.5 L MCV 82.6 MCH 27.6 MCHC 33.4 RDW 16.8 H Plt Count 219 MPV 9.8 Neut % (Auto) 78.3 H Lymph % (Auto) 15.0 L Cassia % (Auto) 4.2 Eos % (Auto) 1.8 Baso % (Auto) 0.7 Neut # (Auto) 7.6 H Lymph # (Auto) 1.5 Cassia # (Auto) 0.4 Eos # (Auto) 0.2 Baso # (Auto) 0.1 PT 13.5 H INR 1.2 Puncture Site pCO2 pO2 HCO3 ABG pH ABG Total CO2 ABG O2 Saturation ABG Base Excess ABG Hemoglobin ABG Carboxyhemoglobin POC ABG HHb (Measured) ABG Methemoglobin Oscar Test A-a O2 Difference Respiratory Index Hgb O2 Saturation Vent Mode Mechanical Rate FiO2 Tidal Volume PEEP Sodium Potassium Chloride Carbon Dioxide Anion Gap BUN Creatinine Est GFR ( Amer) Est GFR (Non-Af Amer) POC Glucose (mg/dL) Random Glucose Calcium Phosphorus Magnesium Total Bilirubin AST ALT Alkaline Phosphatase Total Protein Albumin Globulin Albumin/Globulin Ratio Fingerstick Blood Sugar Results: 140 Review of Systems - Review of Systems All systems: reviewed and no additional remarkable complaints except (As mentioned in HPI) Critical Care Progress Note - Nutrition Nutrition: Nutrition Category Date Time Status Heart Healthy Diet [DIET] Diets 11/30/17 Lunch Active Assessment/Plan - Assessment and Plan (Free Text) Assessment: Neuro: prior CVA Cardio: hx of HTN (Dr Carr) continue dopamine, titrate to MAP > 65, will try to wean d/c CVP monitoring Albumin 12.5gm/50ml IV BID for 2 days (started 12/13) midodrine 5mg PO TID Pulm: hx of Asthma, COPD, hypoxia MRSA pneumonia vent settings FiO2 40%, Tv 550 CPAP trial today, extubate if possible vanco 1gm/meropenem 1gm duoneb CT angio was negative for PE GI: constipation docolax tube feeds at 30ccs Renal/Uro: hx of BPH continue flomax 0.4mg QD (Horton) VALORIE resolved Endo: no acute issues Electrolytes: hypernatremia resolved ID: Septic shock, MRSA + sputum culture and blood culture (Dr Becerril) vanco 1gm IV BID meropenem 500mg IV Q8 dopamine albumin 12.5gm BID for 2 days (started 12/13) Skin: pressure ulcer Vitamin C zinc sulfate PPx: pepcid 20mg QD Heparin 5,000 units full code
--- NOTE | 2017-12-13 15:57 | RAD ---
HISTORY: sputum for mrsa COMPARISON: 12/13/2017 at 7:19 a.m. FINDINGS: LUNGS: No infiltrate identified. Prominent reticular interstitial pattern in the right upper lobe, nonspecific. Followup advised. PLEURA: Probable small left pleural effusion. No evidence of right pleural effusion. No pneumothorax. CARDIOVASCULAR: Normal heart size. Evaluation limited due to steep oblique positioning. Left internal jugular central venous catheter noted. Endotracheal tube and nasogastric tube have been removed. OSSEOUS STRUCTURES: No significant abnormalities. VISUALIZED UPPER ABDOMEN: Normal. OTHER FINDINGS: None. IMPRESSION: Probable small left pleural effusion. No infiltrate. Reticular interstitial pattern noted in the right upper lobe. Nonspecific. And tracheal tube and nasogastric tube removed.
--- NOTE | 2017-12-13 19:25 | CP.PCM.PN ---
Subjective - Date & Time of Evaluation Date of Evaluation: 12/13/17 Time of Evaluation: 15:00 - Subjective Subjective: Follow up Nephrology Consultation Note Assessment: Stable Acute Kidney Injury (N17.9) improved Hypernatremia, ACUTE RESPI FAILURE, moderate pulm HTN COPD/asthma, sepsis, hx of CVA Plan No acute need for renal replacement therapy at this time. Hypertension control with meds as ordered. Patient not on ACEI/ARB due to recent VALORIE Monitor Input/Output, daily weights and renal function with basic metabolic panel supplement electrolytes as needed Dose meds/antibiotics for improved GFR. Avoid nephrotoxins/NSAIDs Glycemic control Further work up for as per primary team Thanks for allowing me to participate in care of your patient. Will follow patient with you. Please call if any Qs Dr Isiah Stern Office: [phone] Subjective: Noted events overnight. Patients feels okay. Denies chest pain, palpitation, extubated just now Physical Examination: General Appearance: Comfortable, co-operative . Vitals reviewed and noted as below Head; Atraumatic, normocephalic ENT: no ulcers no thrush. Tongue is midline. Oropharynx: no rash or ulcers. EYES: Pupils are equal, round and reactive to light accommodation. Eye muscles and extraocular movement intact. Sclera is anicteric. Neck; supple no lymphadenopathy, no thyromegaly or bruit Lungs: Increased respiratory rate/effort. Breath sounds bilateral rales Heart: Normal rate. s1s2 normal. No rub or gallop. Extremities: no edema. No varicose veins Neurological: Patient is alert, awake and oriented to person, place and time. No focal deficit. Strength bilateral appropriate and equal Skin: Warm and dry. Normal turgor. No rash. Palpitation: Normal elasticity for age Abdomen: Abdomen is soft. Bowel sounds +. There is no abdominal tenderness, no guarding/rigidity no organomegaly Psych: normal insight and normal affect/mood MSK: no joint tenderness or swelling. Digits and nails normal, no deformity : kidney or bladder not palpable Labs/imaging reviewed. Past medical history, past surgical history, family history, social history, allergy reviewed and noted as below Family hx: no hx of CKD. Rest non-contributory Objective - Vital Signs/Intake and Output Vital Signs (last 24 hours): Temp Pulse Resp BP Pulse Ox 98.4 F 77 29 H 95/48 L 100 12/13/17 16:00 12/13/17 19:00 12/13/17 19:00 12/13/17 19:00 12/13/17 19:00 Intake and Output: 12/13/17 12/14/17 18:59 06:59 Intake Total 1492.8 41.9 Output Total 1125 75 Balance 367.8 -33.1 - Medications Medications: Current Medications Acetaminophen (Tylenol 650mg/20.3ml Solution Ud) 650 mg PO Q6 PRN PRN Reason: Temperature Last Admin: 12/08/17 11:38 Dose: 650 mg Albumin Human (Albumin Human 25% (12.5 Gm/50 Ml)) 12.5 gm IV BID [facility] Stop: 12/15/17 10:01 Last Admin: 12/13/17 17:41 Dose: 12.5 gm Ascorbic Acid (Vitamin C 500 Mg Tab) 500 mg PO DAILY [facility] Last Admin: 12/13/17 10:06 Dose: 500 mg Heparin Sodium (Porcine) (Heparin) 5,000 units SC Q8 [facility] Last Admin: 12/13/17 15:31 Dose: 5,000 units Meropenem 500 mg/ Sodium (Chloride) 100 mls @ 100 mls/hr IVPB Q8 [facility] Last Admin: 12/13/17 15:30 Dose: 100 mls/hr Vancomycin/Sodium Chloride (Vancomycin 1 Gm/Ns 200 Ml) 1 gm in 200 mls @ 133 mls/hr IVPB Q12H [facility] Stop: 12/17/17 09:31 Last Admin: 12/13/17 10:06 Dose: 133 mls/hr Dopamine HCl/Dextrose (Dopamine 400mg/250ml D5w) 400 mg in 250 mls @ 38.785 mls /hr IV .Q6H27M PRN; Protocol; 12 MCG/KG/MIN PRN Reason: TITRATE PER MD ORDER Last Admin: 12/13/17 17:37 Dose: 12.96 mcg/kg/min, 41.9 mls/hr Insulin Aspart (Novolog) 0 unit SC Q6H ABHIJEET PRN Reason: Protocol Last Admin: 12/13/17 17:37 Dose: Not Given Midodrine (Proamatine) 2.5 mg PO TID [facility] Last Admin: 12/13/17 17:38 Dose: Not Given Multivitamins (Hexavitamin) 1 tab PO DAILY [facility] Last Admin: 12/13/17 10:06 Dose: 1 tab Zinc Sulfate (Zinc Sulfate 220 Mg Cap) 220 mg PO DAILY [facility]HIJEET Last Admin: 12/13/17 10:06 Dose: 220 mg - Labs Labs: 12/13/17 06:38 12/13/17 06:37 PT 13.5 SECONDS (9.7-12.2) H 12/13/17 06:38 INR 1.2 12/13/17 06:38 APTT 31 SECONDS (21-34) 11/26/17 17:31
[2017-12-14] MEDS: DOPamine 400mg/250ml D5W 400 MG/250 ML BAG IV PRN ×3 (00:16→12:14)
[2017-12-14] MEDS: (Novolog) Insulin Aspart, Recombinant 100 u/ml 10 ml vial SC SCH ×4 (00:26→17:39)
[2017-12-14] MEDS: Meropenem 500 MG in Sodium Chloride 0.9% 100 ML IVPB SCH ×3 (06:17→21:28)
[2017-12-14 06:40] LABS: BASO # 0.1 K/uL (0.0-0.2); BASO % 0.7 % (0.0-2.0); EOS # 0.3 K/uL (0.0-0.7); EOS % 2.4 % (0.0-4.0); LYMPH # 1.5 K/uL (1.0-4.3); LYMPH % 13.4 % (20.0-40.0); MEAN CELL VOLUME 83.3 fL (80.0-94.0); MEAN CORPUSCULAR HGB CONC 33.6 g/dL (33.0-37.0); MEAN PLATELET VOLUME 9.2 fL (7.2-11.7); MONO # 0.8 K/uL (0.0-0.8); MONO % 7.2 % (0.0-10.0); NEUT # 8.3 K/uL (1.8-7.0); NEUT % 76.3 % (50.0-75.0); RBC 3.22 Mil/uL (4.40-5.90); RED CELL DISTRIBUTION WIDTH 16.5 % (11.5-14.5); WHITE BLOOD COUNT 10.9 K/uL (4.8-10.8)
[2017-12-14 06:51] LABS: ALB/GLOB RATIO 0.9 (1.0-2.1); ALBUMIN 3.2 g/dL (3.5-5.0); ALT/SGPT 127 U/L (21-72); AST/SGOT 67 U/L (17-59); BLOOD UREA NITROGEN 31 mg/dL (9-20); CALCIUM 8.4 mg/dl (8.6-10.4); GFR AFRICAN-AMERICAN > 60; GFR NON-AFRICAN AMERICAN > 60; MAGNESIUM 2.3 mg/dL (1.6-2.3)
--- NOTE | 2017-12-14 07:06 | PN ---
DATE: 12/13/2017. SUBJECTIVE: The patient is on ventilator, PRVC mode. PHYSICAL EXAMINATION: VITAL SIGNS: Pulse 90, blood pressure 120/80. LUNGS: Decreased breath sounds. EXTREMITIES: There is a wound in the right leg that ASSESSMENT: Active wound care . Supportive care and antibiotic weaning. Adrianne Stanley MD
[2017-12-14] MEDS: Albumin Human 25% (12.5 gm/50 ml) IV SCH ×2 (09:15→17:03)
[2017-12-14] MEDS: Multiple Vitamins Tab PO SCH (09:16)
--- NOTE | 2017-12-14 09:19 | RAD ---
HISTORY: Lung collapse. COMPARISON: 12/13/2017 FINDINGS: Re- demonstrated is in situ left IJ central venous line with tip in the brachiocephalic vein. LUNGS: Re- demonstrated diffuse reticular interstitial pattern with may represent a more dense opacification left lower lobe that may represent some combination of atelectasis/ infiltrate and effusion. Mild biapical pleural thickening right greater than left PLEURA: No significant pleural effusion identified, no pneumothorax apparent. CARDIOVASCULAR: Heart appears enlarged OSSEOUS STRUCTURES: No significant abnormalities. VISUALIZED UPPER ABDOMEN: Normal. OTHER FINDINGS: None. IMPRESSION: Re- demonstrated diffuse reticular interstitial pattern with may represent a more dense opacification left lower lobe that may represent some combination of atelectasis/ infiltrate and effusion. Mild biapical pleural thickening right greater than left
--- NOTE | 2017-12-14 10:14 | CP.PCM.PN ---
Subjective - Date & Time of Evaluation Date of Evaluation: 12/14/17 Time of Evaluation: 09:00 - Subjective Subjective: events noted vanco adjusted Objective - Vital Signs/Intake and Output Vital Signs (last 24 hours): Temp Pulse Resp BP Pulse Ox 97.9 F 60 21 117/66 100 12/14/17 08:00 12/14/17 09:00 12/14/17 09:00 12/14/17 09:00 12/14/17 09:00 Intake and Output: 12/14/17 12/14/17 06:59 18:59 Intake Total 1302.8 156.1 Output Total 975 305 Balance 327.8 -148.9 - Medications Medications: Current Medications Acetaminophen (Tylenol 650mg/20.3ml Solution Ud) 650 mg PO Q6 PRN PRN Reason: Temperature Last Admin: 12/08/17 11:38 Dose: 650 mg Albumin Human (Albumin Human 25% (12.5 Gm/50 Ml)) 12.5 gm IV BID [facility] Stop: 12/15/17 10:01 Last Admin: 12/14/17 09:15 Dose: 12.5 gm Ascorbic Acid (Vitamin C 500 Mg Tab) 500 mg PO DAILY [facility] Last Admin: 12/14/17 09:16 Dose: 500 mg Heparin Sodium (Porcine) (Heparin) 5,000 units SC Q8 [facility] Last Admin: 12/14/17 06:18 Dose: 5,000 units Meropenem 500 mg/ Sodium (Chloride) 100 mls @ 100 mls/hr IVPB Q8 [facility] Last Admin: 12/14/17 06:17 Dose: 100 mls/hr Dopamine HCl/Dextrose (Dopamine 400mg/250ml D5w) 400 mg in 250 mls @ 38.785 mls /hr IV .Q6H27M PRN; Protocol; 12 MCG/KG/MIN PRN Reason: TITRATE PER MD ORDER Last Titration: 12/14/17 07:30 Dose: 12.96 mcg/kg/min, 41.9 mls/hr Vancomycin/Sodium Chloride (Vancomycin 1 Gm/Ns 200 Ml) 1 gm in 200 mls @ 133 mls/hr IVPB Q24H [facility] Stop: 12/19/17 18:01 Insulin Aspart (Novolog) 0 unit SC Q6H [facility]HIJEET PRN Reason: Protocol Last Admin: 02/13/18 06:23 Dose: Not Given Midodrine (Proamatine) 2.5 mg PO TID [facility] Last Admin: 12/14/17 09:16 Dose: 2.5 mg Multivitamins (Hexavitamin) 1 tab PO DAILY [facility] Last Admin: 12/14/17 09:16 Dose: 1 tab Zinc Sulfate (Zinc Sulfate 220 Mg Cap) 220 mg PO DAILY [facility] Last Admin: 12/14/17 09:16 Dose: 220 mg - Labs Labs: 12/14/17 06:28 12/14/17 06:28 PT 13.5 SECONDS (9.7-12.2) H 12/13/17 06:38 INR 1.2 12/13/17 06:38 APTT 31 SECONDS (21-34) 11/26/17 17:31 - Constitutional Appears: Non-toxic, Chronically Ill - Head Exam Head Exam: NORMOCEPHALIC - Eye Exam Eye Exam: PERRL - ENT Exam ENT Exam: Mucous Membranes Dry - Neck Exam Neck Exam: absent: Lymphadenopathy - Respiratory Exam Respiratory Exam: Decreased Breath Sounds - Cardiovascular Exam Cardiovascular Exam: REGULAR RHYTHM - GI/Abdominal Exam GI & Abdominal Exam: Distended, Soft - Rectal Exam Rectal Exam: Deferred - Exam Exam: NORMAL INSPECTION - Back Exam Back Exam: absent: CVA tenderness (L), CVA tenderness (R) - Neurological Exam Neurological Exam: Altered - Psychiatric Exam Psychiatric exam: Depressed Assessment and Plan (1) Acute urinary retention Status: Acute (2) Fever Status: Acute (3) Sepsis associated hypotension Status: Acute (4) Pneumonia Status: Acute (5) Respiratory failure Status: Acute
[2017-12-14 10:38] LABS: ABG ALLEN TEST PO; ARTERIAL BLOOD GAS HCO3 31.3 mmol/L (21-28); ARTERIAL BLOOD GAS HEMOGLOBIN 9.4 g/dL (11.7-17.4); ARTERIAL BLOOD GAS O2 SAT 98.7 % (95-98); ARTERIAL BLOOD GAS PCO2 64 mm/Hg (35-45); ARTERIAL BLOOD GAS PH 7.35 (7.35-7.45); ARTERIAL BLOOD GAS PO2 122 mm/Hg (80-100); ARTERIAL BLOOD GAS TCO2 37.3 mmol/L (22-28)
[2017-12-14] MEDS: Sodium Chloride 0.9% 1,000 ML IV SCH (11:40)
--- NOTE | 2017-12-14 11:46 | CP.CCUPN ---
<Viral Perez - Last Filed: 12/14/17 11:41> CCU Subjective - Physician Review Subjective (Free Text): Patient seen and examined at bedside Extubated yesterday, doing well on bipap, will attempt cpap today Continues to require dopamine for hypotension/bradycardia Subjectively patient feels okay, denies chest pain, fever, palpitations, pain. CCU Objective - Vital Signs / Intake & Output Vital Signs (Last 4 hours): Vital Signs Temp Pulse Resp BP Pulse Ox 12/14/17 10:50 63 12/14/17 09:00 60 21 117/66 100 12/14/17 08:00 97.9 F 67 18 85 L 12/14/17 07:59 63 18 97/61 L 87 L 12/14/17 07:56 80 Intake and Output (Last 8hrs): Intake & Output 12/13/17 12/14/17 12/14/17 22:59 06:59 14:59 Intake Total 941.4 835.2 156.1 Output Total 650 700 305 Balance 291.4 135.2 -148.9 Weight 172 lb Intake: IV 250 500 40 Intake, IV Amount 691.4 335.2 116.1 Left Medial Port Internal 250 83.8 Jugular Left Proximal Port 341.4 335.2 32.3 Internal Jugular Right Distal Port 100 Output: Urine 650 700 305 Urethral (Singh) 650 700 305 Other: # Bowel Movements 0 - Physical Exam Head: Positive for: Atraumatic, Normocephalic Pupils: Positive for: PERRL Mouth: Positive for: Moist Mucous Membranes Respiratory/Chest: Positive for: Other (intubated) Abdomen: Positive for: Normal Bowel Sounds. Negative for: Tenderness, Distention, Peritoneal Signs Psychiatric: Positive for: Alert, Oriented x 3 - Medications Active Medications: Active Medications Generic Name Dose Route Start Last Admin Trade Name Freq PRN Reason Stop Dose Admin Acetaminophen 650 mg 12/06/17 09:30 12/08/17 11:38 Tylenol 650mg/20.3ml Solution Ud PO 650 mg Q6 PRN Administration Temperature Albumin Human 12.5 gm 12/13/17 10:00 12/14/17 09:15 Albumin Human 25% (12.5 Gm/50 Ml) IV 12/15/17 10:01 12.5 gm BID ABHIJEET Administration Ascorbic Acid 500 mg 12/05/17 10:00 12/14/17 09:16 Vitamin C 500 Mg Tab PO 500 mg DAILY ABHIJEET Administration Heparin Sodium (Porcine) 5,000 units 12/12/17 22:00 12/14/17 06:18 Heparin SC 5,000 units Q8 BAHIJEET Administration Meropenem 500 mg/ Sodium 100 mls @ 100 mls/hr 12/06/17 14:00 12/14/17 06:17 Chloride IVPB 100 mls/hr Q8 ABHIJEET Administration Dopamine HCl/Dextrose 400 mg in 250 mls @ 38.785 mls/hr 12/12/17 15:18 07:30 Dopamine 400mg/250ml D5w IV 12.96 mcg/kg/min .Q6H27M PRN 41.9 mls/hr TITRATE PER MD ORDER Titration Protocol 12 MCG/KG/MIN Vancomycin/Sodium Chloride 1 gm in 200 mls @ 133 mls/hr 12/14/17 18:00 Vancomycin 1 Gm/Ns 200 Ml IVPB 12/19/17 18:01 Q24H ABHIJEET Sodium Chloride 1,000 mls @ 100 mls/hr 12/14/17 11:45 12/14/17 11:40 Sodium Chloride 0.9% IV 100 mls/hr .Q10H ABHIJEET Administration Insulin Aspart 0 unit 12/02/17 18:00 12/14/17 06:23 Novolog SC Not Given Q6H [facility] Protocol Midodrine 2.5 mg 12/13/17 10:00 12/14/17 09:16 Proamatine PO 2.5 mg TID ABHIJEET Administration Multivitamins 1 tab 12/07/17 10:00 12/14/17 09:16 Hexavitamin PO 1 tab DAILY ABHIJEET Administration Zinc Sulfate 220 mg 12/02/17 10:00 12/14/17 09:16 Zinc Sulfate 220 Mg Cap PO 220 mg DAILY ABHIJEET Administration - Patient Studies Lab Studies: Lab Studies 12/14/17 12/14/17 12/14/17 Range/Units 10:33 06:28 06:28 WBC 10.9 H (4.8-10.8) K/uL RBC 3.22 L (4.40-5.90) Mil/uL Hgb 9.0 L (12.0-18.0) g/dL Hct 26.8 L (35.0-51.0) % MCV 83.3 (80.0-94.0) fL MCH 28.0 (27.0-31.0) pg MCHC 33.6 (33.0-37.0) g/dL RDW 16.5 H (11.5-14.5) % Plt Count 228 (130-400) K/uL MPV 9.2 (7.2-11.7) fL Neut % (Auto) 76.3 H (50.0-75.0) % Lymph % (Auto) 13.4 L (20.0-40.0) % [place] % (Auto) 7.2 (0.0-10.0) % Eos % (Auto) 2.4 (0.0-4.0) % Baso % (Auto) 0.7 (0.0-2.0) % Neut # (Auto) 8.3 H (1.8-7.0) K/uL Lymph # (Auto) 1.5 (1.0-4.3) K/uL [place] # (Auto) 0.8 (0.0-0.8) K/uL Eos # (Auto) 0.3 (0.0-0.7) K/uL Baso # (Auto) 0.1 (0.0-0.2) K/uL Puncture Site Rra pCO2 64 H (35-45) mm/Hg pO2 122 H (80-100) mm/Hg HCO3 31.3 H (21-28) mmol/L ABG pH 7.35 (7.35-7.45) ABG Total CO2 37.3 H (22-28) mmol/L ABG O2 Saturation 98.7 H (95-98) % ABG Base Excess 8.2 H (-2.0-3.0) mmol/L ABG Hemoglobin 9.4 L (11.7-17.4) g/dL ABG Carboxyhemoglobin 1.4 (0.5-1.5) % POC ABG HHb (Measured) 1.3 (0.0-5.0) % ABG Methemoglobin 0.9 (0.0-3.0) % Oscar Test Po A-a O2 Difference 226.0 mm/Hg Respiratory Index 1.9 Hgb O2 Saturation 96.4 (95.0-98.0) % Vent Mode Bipap FiO2 60.0 % Inspiratory BiPAP 16 Expiratory BiPAP 8 Sodium 147 (132-148) mmol/L Potassium 3.6 (3.6-5.2) mmol/L Chloride 105 (98-107) mmol/L Carbon Dioxide 32 H (22-30) mmol/L Anion Gap 14 (10-20) BUN 31 H (9-20) mg/dL Creatinine 1.0 (0.8-1.5) mg/dL Est GFR ( Amer) > 60 Est GFR (Non-Af Amer) > 60 POC Glucose (mg/dL) (65-110) mg/dL Random Glucose 137 H (75-110) mg/dL Calcium 8.4 L (8.6-10.4) mg/dl Phosphorus 4.1 (2.5-4.5) mg/dL Magnesium 2.3 (1.6-2.3) mg/dL Total Bilirubin 0.5 (0.2-1.3) mg/dL AST 67 H D (17-59) U/L ALT 127 H (21-72) U/L Alkaline Phosphatase 76 (38-126) U/L Total Protein 6.7 (6.3-8.3) g/dL Albumin 3.2 L (3.5-5.0) g/dL Globulin 3.5 (2.2-3.9) gm/dL Albumin/Globulin Ratio 0.9 L (1.0-2.1) Procalcitonin (0.19-0.49) NG/ML Vancomycin Trough (5.0-10.0) ug/mL 12/14/17 12/14/17 12/13/17 Range/Units 06:28 06:22 23:37 WBC (4.8-10.8) K/uL RBC (4.40-5.90) Mil/uL Hgb (12.0-18.0) g/dL Hct (35.0-51.0) % MCV (80.0-94.0) fL MCH (27.0-31.0) pg MCHC (33.0-37.0) g/dL RDW (11.5-14.5) % Plt Count (130-400) K/uL MPV (7.2-11.7) fL Neut % (Auto) (50.0-75.0) % Lymph % (Auto) (20.0-40.0) % [place] % (Auto) (0.0-10.0) % Eos % (Auto) (0.0-4.0) % Baso % (Auto) (0.0-2.0) % Neut # (Auto) (1.8-7.0) K/uL Lymph # (Auto) (1.0-4.3) K/uL [place] # (Auto) (0.0-0.8) K/uL Eos # (Auto) (0.0-0.7) K/uL Baso # (Auto) (0.0-0.2) K/uL Puncture Site pCO2 (35-45) mm/Hg pO2 (80-100) mm/Hg HCO3 (21-28) mmol/L ABG pH (7.35-7.45) ABG Total CO2 (22-28) mmol/L ABG O2 Saturation (95-98) % ABG Base Excess (-2.0-3.0) mmol/L ABG Hemoglobin (11.7-17.4) g/dL ABG Carboxyhemoglobin (0.5-1.5) % POC ABG HHb (Measured) (0.0-5.0) % ABG Methemoglobin (0.0-3.0) % Oscar Test A-a O2 Difference mm/Hg Respiratory Index Hgb O2 Saturation (95.0-98.0) % Vent Mode FiO2 % Inspiratory BiPAP Expiratory BiPAP Sodium (132-148) mmol/L Potassium (3.6-5.2) mmol/L Chloride (98-107) mmol/L Carbon Dioxide (22-30) mmol/L Anion Gap (10-20) BUN (9-20) mg/dL Creatinine (0.8-1.5) mg/dL Est GFR ( Amer) Est GFR (Non-Af Amer) POC Glucose (mg/dL) 121 H 129 H (65-110) mg/dL Random Glucose (75-110) mg/dL Calcium (8.6-10.4) mg/dl Phosphorus (2.5-4.5) mg/dL Magnesium (1.6-2.3) mg/dL Total Bilirubin (0.2-1.3) mg/dL AST (17-59) U/L ALT (21-72) U/L Alkaline Phosphatase (38-126) U/L Total Protein (6.3-8.3) g/dL Albumin (3.5-5.0) g/dL Globulin (2.2-3.9) gm/dL Albumin/Globulin Ratio (1.0-2.1) Procalcitonin (0.19-0.49) NG/ML Vancomycin Trough 30.6 H (5.0-10.0) ug/mL 12/13/17 12/13/17 12/13/17 Range/Units 17:53 11:57 06:37 WBC (4.8-10.8) K/uL RBC (4.40-5.90) Mil/uL Hgb (12.0-18.0) g/dL Hct (35.0-51.0) % MCV (80.0-94.0) fL MCH (27.0-31.0) pg MCHC (33.0-37.0) g/dL RDW (11.5-14.5) % Plt Count (130-400) K/uL MPV (7.2-11.7) fL Neut % (Auto) (50.0-75.0) % Lymph % (Auto) (20.0-40.0) % [place] % (Auto) (0.0-10.0) % Eos % (Auto) (0.0-4.0) % Baso % (Auto) (0.0-2.0) % Neut # (Auto) (1.8-7.0) K/uL Lymph # (Auto) (1.0-4.3) K/uL [place] # (Auto) (0.0-0.8) K/uL Eos # (Auto) (0.0-0.7) K/uL Baso # (Auto) (0.0-0.2) K/uL Puncture Site pCO2 (35-45) mm/Hg pO2 (80-100) mm/Hg HCO3 (21-28) mmol/L ABG pH (7.35-7.45) ABG Total CO2 (22-28) mmol/L ABG O2 Saturation (95-98) % ABG Base Excess (-2.0-3.0) mmol/L ABG Hemoglobin (11.7-17.4) g/dL ABG Carboxyhemoglobin (0.5-1.5) % POC ABG HHb (Measured) (0.0-5.0) % ABG Methemoglobin (0.0-3.0) % Oscar Test A-a O2 Difference mm/Hg Respiratory Index Hgb O2 Saturation (95.0-98.0) % Vent Mode FiO2 % Inspiratory BiPAP Expiratory BiPAP Sodium (132-148) mmol/L Potassium (3.6-5.2) mmol/L Chloride (98-107) mmol/L Carbon Dioxide (22-30) mmol/L Anion Gap (10-20) BUN (9-20) mg/dL Creatinine (0.8-1.5) mg/dL Est GFR ( Amer) Est GFR (Non-Af Amer) POC Glucose (mg/dL) 146 H 149 H (65-110) mg/dL Random Glucose (75-110) mg/dL Calcium (8.6-10.4) mg/dl Phosphorus (2.5-4.5) mg/dL Magnesium (1.6-2.3) mg/dL Total Bilirubin (0.2-1.3) mg/dL AST (17-59) U/L ALT (21-72) U/L Alkaline Phosphatase (38-126) U/L Total Protein (6.3-8.3) g/dL Albumin (3.5-5.0) g/dL Globulin (2.2-3.9) gm/dL Albumin/Globulin Ratio (1.0-2.1) Procalcitonin 0.57 H (0.19-0.49) NG/ML Vancomycin Trough (5.0-10.0) ug/mL Laboratory Results - last 24 hr 12/13/17 12/13/17 12/13/17 06:37 11:57 17:53 WBC RBC Hgb Hct MCV MCH MCHC RDW Plt Count MPV Neut % (Auto) Lymph % (Auto) [place] % (Auto) Eos % (Auto) Baso % (Auto) Neut # (Auto) Lymph # (Auto) [place] # (Auto) Eos # (Auto) Baso # (Auto) Puncture Site pCO2 pO2 HCO3 ABG pH ABG Total CO2 ABG O2 Saturation ABG Base Excess ABG Hemoglobin ABG Carboxyhemoglobin POC ABG HHb (Measured) ABG Methemoglobin Oscar Test A-a O2 Difference Respiratory Index Hgb O2 Saturation Vent Mode FiO2 Inspiratory BiPAP Expiratory BiPAP Sodium Potassium Chloride Carbon Dioxide Anion Gap BUN Creatinine Est GFR ( Amer) Est GFR (Non-Af Amer) POC Glucose (mg/dL) 149 H 146 H Random Glucose Calcium Phosphorus Magnesium Total Bilirubin AST ALT Alkaline Phosphatase Total Protein Albumin Globulin Albumin/Globulin Ratio Procalcitonin 0.57 H Vancomycin Trough 12/13/17 12/14/17 12/14/17 23:37 06:22 06:28 WBC RBC Hgb Hct MCV MCH MCHC RDW Plt Count MPV Neut % (Auto) Lymph % (Auto) [place] % (Auto) Eos % (Auto) Baso % (Auto) Neut # (Auto) Lymph # (Auto) [place] # (Auto) Eos # (Auto) Baso # (Auto) Puncture Site pCO2 pO2 HCO3 ABG pH ABG Total CO2 ABG O2 Saturation ABG Base Excess ABG Hemoglobin ABG Carboxyhemoglobin POC ABG HHb (Measured) ABG Methemoglobin Oscar Test A-a O2 Difference Respiratory Index Hgb O2 Saturation Vent Mode FiO2 Inspiratory BiPAP Expiratory BiPAP Sodium Potassium Chloride Carbon Dioxide Anion Gap BUN Creatinine Est GFR ( Amer) Est GFR (Non-Af Amer) POC Glucose (mg/dL) 129 H 121 H Random Glucose Calcium Phosphorus Magnesium Total Bilirubin AST ALT Alkaline Phosphatase Total Protein Albumin Globulin Albumin/Globulin Ratio Procalcitonin Vancomycin Trough 30.6 H 12/14/17 12/14/17 12/14/17 06:28 06:28 10:33 WBC 10.9 H RBC 3.22 L Hgb 9.0 L Hct 26.8 L MCV 83.3 MCH 28.0 MCHC 33.6 RDW 16.5 H Plt Count 228 MPV 9.2 Neut % (Auto) 76.3 H Lymph % (Auto) 13.4 L [place] % (Auto) 7.2 Eos % (Auto) 2.4 Baso % (Auto) 0.7 Neut # (Auto) 8.3 H Lymph # (Auto) 1.5 [place]ne # (Auto) 0.8 Eos # (Auto) 0.3 Baso # (Auto) 0.1 Puncture Site Rra pCO2 64 H pO2 122 H HCO3 31.3 H ABG pH 7.35 ABG Total CO2 37.3 H ABG O2 Saturation 98.7 H ABG Base Excess 8.2 H ABG Hemoglobin 9.4 L ABG Carboxyhemoglobin 1.4 POC ABG HHb (Measured) 1.3 ABG Methemoglobin 0.9 Oscar Test Po A-a O2 Difference 226.0 Respiratory Index 1.9 Hgb O2 Saturation 96.4 Vent Mode Bipap FiO2 60.0 Inspiratory BiPAP 16 Expiratory BiPAP 8 Sodium 147 Potassium 3.6 Chloride 105 Carbon Dioxide 32 H Anion Gap 14 BUN 31 H Creatinine 1.0 Est GFR ( Amer) > 60 Est GFR (Non-Af Amer) > 60 POC Glucose (mg/dL) Random Glucose 137 H Calcium 8.4 L Phosphorus 4.1 Magnesium 2.3 Total Bilirubin 0.5 AST 67 H D ALT 127 H Alkaline Phosphatase 76 Total Protein 6.7 Albumin 3.2 L Globulin 3.5 Albumin/Globulin Ratio 0.9 L Procalcitonin Vancomycin Trough Fingerstick Blood Sugar Results: 149 Review of Systems - Review of Systems All systems: reviewed and no additional remarkable complaints except (as above) Assessment/Plan - Assessment and Plan (Free Text) Assessment: Neuro: prior CVA Cardio: hx of HTN (Bruno) continue dopamine, titrate to MAP > 65 Albumin 12.5gm/50ml IV BID midodrine 2.5mg PO TID Pulm: hx of Asthma, COPD, hypoxia MRSA pneumonia BiPAP Fi02 80%, RR20, IPAP 16, EPAP 8 ABG - if ok will attempt cpap and see progress Decrease vanco 1gm to QD as vanco trough high meropenem 1gm CT angio was negative for PE GI: constipation docolax tube feeds at 30ccs swallow eval if possible Renal/Uro: hx of BPH continue flomax 0.4mg QD (Horton) VALORIE resolved NS @ 100cc/hr Endo: no acute issues Electrolytes: hypernatremia resolved ID: Septic shock, MRSA + sputum culture and blood culture (Jone) decrease vanco 1gm to QD as vanco trough high meropenem dopamine albumin 12.5gm BID Skin: pressure ulcer Vitamin C zinc sulfate PPx: pepcid 20mg QD Heparin 5,000 units full code <Justino Arciniega S - Last Filed: 12/14/17 17:47> CCU Objective - Vital Signs / Intake & Output Vital Signs (Last 4 hours): Vital Signs Temp Pulse Resp BP Pulse Ox 12/14/17 17:00 69 12 106/58 L 95 12/14/17 16:00 98.5 F 75 23 115/57 L 97 12/14/17 15:00 69 13 97 12/14/17 14:59 68 19 109/64 90 L 12/14/17 14:00 69 13 98 12/14/17 13:59 75 17 111/65 93 L Intake and Output (Last 8hrs): Intake & Output 12/14/17 12/14/17 12/14/17 06:59 14:59 22:59 Intake Total 835.2 925.1 252.3 Output Total 700 685 215 Balance 135.2 240.1 37.3 Weight 172 lb Intake: IV 500 260 Intake, IV Amount 335.2 665.1 252.3 Left Medial Port Internal 247.8 52.3 Jugular Left Proximal Port 335.2 417.3 200 Internal Jugular Output: Urine 700 685 215 Urethral (Singh) 700 685 215 Other: # Bowel Movements 0 - Medications Active Medications: Active Medications Generic Name Dose Route Start Last Admin Trade Name Freq PRN Reason Stop Dose Admin Acetaminophen 650 mg 12/06/17 09:30 12/08/17 11:38 Tylenol 650mg/20.3ml Solution Ud PO 650 mg Q6 PRN Administration Temperature Albumin Human 12.5 gm 12/13/17 10:00 12/14/17 17:03 Albumin Human 25% (12.5 Gm/50 Ml) IV 12/15/17 10:01 12.5 gm BID ABHIJEET Administration Ascorbic Acid 500 mg 12/05/17 10:00 12/14/17 09:16 Vitamin C 500 Mg Tab PO 500 mg DAILY ABHIJEET Administration Heparin Sodium (Porcine) 5,000 units 12/12/17 22:00 12/14/17 13:20 Heparin SC 5,000 units Q8 ABHIJEET Administration Meropenem 500 mg/ Sodium 100 mls @ 100 mls/hr 12/06/17 14:00 12/14/17 13:34 Chloride IVPB 100 mls/hr Q8 ABHIJEET Administration Dopamine HCl/Dextrose 400 mg in 250 mls @ 38.785 mls/hr 12/12/17 15:18 14:00 Dopamine 400mg/250ml D5w IV 8 mcg/kg/min .Q6H27M PRN 25.856 mls/hr TITRATE PER MD ORDER Titration Protocol 12 MCG/KG/MIN Vancomycin/Sodium Chloride 1 gm in 200 mls @ 133 mls/hr 12/14/17 18:00 17:38 Vancomycin 1 Gm/Ns 200 Ml IVPB 12/19/17 18:01 133 mls/hr Q24H ABHIJEET Administration Sodium Chloride 1,000 mls @ 100 mls/hr 12/14/17 11:45 12/14/17 11:40 Sodium Chloride 0.9% IV 100 mls/hr .Q10H ABHIJEET Administration Insulin Aspart 0 unit 12/02/17 18:00 12/14/17 17:39 Novolog SC Not Given Q6H ABHIJEET Protocol Midodrine 2.5 mg 12/13/17 10:00 12/14/17 17:03 Proamatine PO 2.5 mg TID ABHIJEET Administration Multivitamins 1 tab 12/07/17 10:00 12/14/17 09:16 Hexavitamin PO 1 tab DAILY ABHIJEET Administration Zinc Sulfate 220 mg 12/02/17 10:00 12/14/17 09:16 Zinc Sulfate 220 Mg Cap PO 220 mg DAILY ABHIJEET Administration - Patient Studies Lab Studies: Lab Studies 12/14/17 12/14/17 12/14/17 Range/Units 17:23 11:58 10:33 WBC (4.8-10.8) K/uL RBC (4.40-5.90) Mil/uL Hgb (12.0-18.0) g/dL Hct (35.0-51.0) % MCV (80.0-94.0) fL MCH (27.0-31.0) pg MCHC (33.0-37.0) g/dL RDW (11.5-14.5) % Plt Count (130-400) K/uL MPV (7.2-11.7) fL Neut % (Auto) (50.0-75.0) % Lymph % (Auto) (20.0-40.0) % [place] % (Auto) (0.0-10.0) % Eos % (Auto) (0.0-4.0) % Baso % (Auto) (0.0-2.0) % Neut # (Auto) (1.8-7.0) K/uL Lymph # (Auto) (1.0-4.3) K/uL [place] # (Auto) (0.0-0.8) K/uL Eos # (Auto) (0.0-0.7) K/uL Baso # (Auto) (0.0-0.2) K/uL Puncture Site Rra pCO2 64 H (35-45) mm/Hg pO2 122 H (80-100) mm/Hg HCO3 31.3 H (21-28) mmol/L ABG pH 7.35 (7.35-7.45) ABG Total CO2 37.3 H (22-28) mmol/L ABG O2 Saturation 98.7 H (95-98) % ABG Base Excess 8.2 H (-2.0-3.0) mmol/L ABG Hemoglobin 9.4 L (11.7-17.4) g/dL ABG Carboxyhemoglobin 1.4 (0.5-1.5) % POC ABG HHb (Measured) 1.3 (0.0-5.0) % ABG Methemoglobin 0.9 (0.0-3.0) % Oscar Test Po A-a O2 Difference 226.0 mm/Hg Respiratory Index 1.9 Hgb O2 Saturation 96.4 (95.0-98.0) % Vent Mode Bipap FiO2 60.0 % Inspiratory BiPAP 16 Expiratory BiPAP 8 Sodium (132-148) mmol/L Potassium (3.6-5.2) mmol/L Chloride (98-107) mmol/L Carbon Dioxide (22-30) mmol/L Anion Gap (10-20) BUN (9-20) mg/dL Creatinine (0.8-1.5) mg/dL Est GFR ( Amer) Est GFR (Non-Af Amer) POC Glucose (mg/dL) 108 158 H (65-110) mg/dL Random Glucose (75-110) mg/dL Calcium (8.6-10.4) mg/dl Phosphorus (2.5-4.5) mg/dL Magnesium (1.6-2.3) mg/dL Total Bilirubin (0.2-1.3) mg/dL AST (17-59) U/L ALT (21-72) U/L Alkaline Phosphatase (38-126) U/L Total Protein (6.3-8.3) g/dL Albumin (3.5-5.0) g/dL Globulin (2.2-3.9) gm/dL Albumin/Globulin Ratio (1.0-2.1) Vancomycin Trough (5.0-10.0) ug/mL 12/14/17 12/14/17 12/14/17 Range/Units 06:28 06:28 06:28 WBC 10.9 H (4.8-10.8) K/uL RBC 3.22 L (4.40-5.90) Mil/uL Hgb 9.0 L (12.0-18.0) g/dL Hct 26.8 L (35.0-51.0) % MCV 83.3 (80.0-94.0) fL MCH 28.0 (27.0-31.0) pg MCHC 33.6 (33.0-37.0) g/dL RDW 16.5 H (11.5-14.5) % Plt Count 228 (130-400) K/uL MPV 9.2 (7.2-11.7) fL Neut % (Auto) 76.3 H (50.0-75.0) % Lymph % (Auto) 13.4 L (20.0-40.0) % [place] % (Auto) 7.2 (0.0-10.0) % Eos % (Auto) 2.4 (0.0-4.0) % Baso % (Auto) 0.7 (0.0-2.0) % Neut # (Auto) 8.3 H (1.8-7.0) K/uL Lymph # (Auto) 1.5 (1.0-4.3) K/uL [place] # (Auto) 0.8 (0.0-0.8) K/uL Eos # (Auto) 0.3 (0.0-0.7) K/uL Baso # (Auto) 0.1 (0.0-0.2) K/uL Puncture Site pCO2 (35-45) mm/Hg pO2 (80-100) mm/Hg HCO3 (21-28) mmol/L ABG pH (7.35-7.45) ABG Total CO2 (22-28) mmol/L ABG O2 Saturation (95-98) % ABG Base Excess (-2.0-3.0) mmol/L ABG Hemoglobin (11.7-17.4) g/dL ABG Carboxyhemoglobin (0.5-1.5) % POC ABG HHb (Measured) (0.0-5.0) % ABG Methemoglobin (0.0-3.0) % Oscar Test A-a O2 Difference mm/Hg Respiratory Index Hgb O2 Saturation (95.0-98.0) % Vent Mode FiO2 % Inspiratory BiPAP Expiratory BiPAP Sodium 147 (132-148) mmol/L Potassium 3.6 (3.6-5.2) mmol/L Chloride 105 (98-107) mmol/L Carbon Dioxide 32 H (22-30) mmol/L Anion Gap 14 (10-20) BUN 31 H (9-20) mg/dL Creatinine 1.0 (0.8-1.5) mg/dL Est GFR ( Amer) > 60 Est GFR (Non-Af Amer) > 60 POC Glucose (mg/dL) (65-110) mg/dL Random Glucose 137 H (75-110) mg/dL Calcium 8.4 L (8.6-10.4) mg/dl Phosphorus 4.1 (2.5-4.5) mg/dL Magnesium 2.3 (1.6-2.3) mg/dL Total Bilirubin 0.5 (0.2-1.3) mg/dL AST 67 H D (17-59) U/L ALT 127 H (21-72) U/L Alkaline Phosphatase 76 (38-126) U/L Total Protein 6.7 (6.3-8.3) g/dL Albumin 3.2 L (3.5-5.0) g/dL Globulin 3.5 (2.2-3.9) gm/dL Albumin/Globulin Ratio 0.9 L (1.0-2.1) Vancomycin Trough 30.6 H (5.0-10.0) ug/mL 12/14/17 12/13/17 12/13/17 Range/Units 06:22 23:37 17:53 WBC (4.8-10.8) K/uL RBC (4.40-5.90) Mil/uL Hgb (12.0-18.0) g/dL Hct (35.0-51.0) % MCV (80.0-94.0) fL MCH (27.0-31.0) pg MCHC (33.0-37.0) g/dL RDW (11.5-14.5) % Plt Count (130-400) K/uL MPV (7.2-11.7) fL Neut % (Auto) (50.0-75.0) % Lymph % (Auto) (20.0-40.0) % [place] % (Auto) (0.0-10.0) % Eos % (Auto) (0.0-4.0) % Baso % (Auto) (0.0-2.0) % Neut # (Auto) (1.8-7.0) K/uL Lymph # (Auto) (1.0-4.3) K/uL Duc[place]ne # (Auto) (0.0-0.8) K/uL Eos # (Auto) (0.0-0.7) K/uL Baso # (Auto) (0.0-0.2) K/uL Puncture Site pCO2 (35-45) mm/Hg pO2 (80-100) mm/Hg HCO3 (21-28) mmol/L ABG pH (7.35-7.45) ABG Total CO2 (22-28) mmol/L ABG O2 Saturation (95-98) % ABG Base Excess (-2.0-3.0) mmol/L ABG Hemoglobin (11.7-17.4) g/dL ABG Carboxyhemoglobin (0.5-1.5) % POC ABG HHb (Measured) (0.0-5.0) % ABG Methemoglobin (0.0-3.0) % Oscar Test A-a O2 Difference mm/Hg Respiratory Index Hgb O2 Saturation (95.0-98.0) % Vent Mode FiO2 % Inspiratory BiPAP Expiratory BiPAP Sodium (132-148) mmol/L Potassium (3.6-5.2) mmol/L Chloride (98-107) mmol/L Carbon Dioxide (22-30) mmol/L Anion Gap (10-20) BUN (9-20) mg/dL Creatinine (0.8-1.5) mg/dL Est GFR ( Amer) Est GFR (Non-Af Amer) POC Glucose (mg/dL) 121 H 129 H 146 H (65-110) mg/dL Random Glucose (75-110) mg/dL Calcium (8.6-10.4) mg/dl Phosphorus (2.5-4.5) mg/dL Magnesium (1.6-2.3) mg/dL Total Bilirubin (0.2-1.3) mg/dL AST (17-59) U/L ALT (21-72) U/L Alkaline Phosphatase (38-126) U/L Total Protein (6.3-8.3) g/dL Albumin (3.5-5.0) g/dL Globulin (2.2-3.9) gm/dL Albumin/Globulin Ratio (1.0-2.1) Vancomycin Trough (5.0-10.0) ug/mL Laboratory Results - last 24 hr 12/13/17 12/13/17 12/14/17 17:53 23:37 06:22 WBC RBC Hgb Hct MCV MCH MCHC RDW Plt Count MPV Neut % (Auto) Lymph % (Auto) [place] % (Auto) Eos % (Auto) Baso % (Auto) Neut # (Auto) Lymph # (Auto) [place]ne # (Auto) Eos # (Auto) Baso # (Auto) Puncture Site pCO2 pO2 HCO3 ABG pH ABG Total CO2 ABG O2 Saturation ABG Base Excess ABG Hemoglobin ABG Carboxyhemoglobin POC ABG HHb (Measured) ABG Methemoglobin Oscar Test A-a O2 Difference Respiratory Index Hgb O2 Saturation Vent Mode FiO2 Inspiratory BiPAP Expiratory BiPAP Sodium Potassium Chloride Carbon Dioxide Anion Gap BUN Creatinine Est GFR ( Amer) Est GFR (Non-Af Amer) POC Glucose (mg/dL) 146 H 129 H 121 H Random Glucose Calcium Phosphorus Magnesium Total Bilirubin AST ALT Alkaline Phosphatase Total Protein Albumin Globulin Albumin/Globulin Ratio Vancomycin Trough 12/14/17 12/14/17 12/14/17 06:28 06:28 06:28 WBC 10.9 H RBC 3.22 L Hgb 9.0 L Hct 26.8 L MCV 83.3 MCH 28.0 MCHC 33.6 RDW 16.5 H Plt Count 228 MPV 9.2 Neut % (Auto) 76.3 H Lymph % (Auto) 13.4 L [place]ne % (Auto) 7.2 Eos % (Auto) 2.4 Baso % (Auto) 0.7 Neut # (Auto) 8.3 H Lymph # (Auto) 1.5 [place]ne # (Auto) 0.8 Eos # (Auto) 0.3 Baso # (Auto) 0.1 Puncture Site pCO2 pO2 HCO3 ABG pH ABG Total CO2 ABG O2 Saturation ABG Base Excess ABG Hemoglobin ABG Carboxyhemoglobin POC ABG HHb (Measured) ABG Methemoglobin Oscar Test A-a O2 Difference Respiratory Index Hgb O2 Saturation Vent Mode FiO2 Inspiratory BiPAP Expiratory BiPAP Sodium 147 Potassium 3.6 Chloride 105 Carbon Dioxide 32 H Anion Gap 14 BUN 31 H Creatinine 1.0 Est GFR ( Amer) > 60 Est GFR (Non-Af Amer) > 60 POC Glucose (mg/dL) Random Glucose 137 H Calcium 8.4 L Phosphorus 4.1 Magnesium 2.3 Total Bilirubin 0.5 AST 67 H D ALT 127 H Alkaline Phosphatase 76 Total Protein 6.7 Albumin 3.2 L Globulin 3.5 Albumin/Globulin Ratio 0.9 L Vancomycin Trough 30.6 H 12/14/17 12/14/17 12/14/17 10:33 11:58 17:23 WBC RBC Hgb Hct MCV MCH MCHC RDW Plt Count MPV Neut % (Auto) Lymph % (Auto) [place] % (Auto) Eos % (Auto) Baso % (Auto) Neut # (Auto) Lymph # (Auto) [place]ne # (Auto) Eos # (Auto) Baso # (Auto) Puncture Site Rra pCO2 64 H pO2 122 H HCO3 31.3 H ABG pH 7.35 ABG Total CO2 37.3 H ABG O2 Saturation 98.7 H ABG Base Excess 8.2 H ABG Hemoglobin 9.4 L ABG Carboxyhemoglobin 1.4 POC ABG HHb (Measured) 1.3 ABG Methemoglobin 0.9 Oscar Test Po A-a O2 Difference 226.0 Respiratory Index 1.9 Hgb O2 Saturation 96.4 Vent Mode Bipap FiO2 60.0 Inspiratory BiPAP 16 Expiratory BiPAP 8 Sodium Potassium Chloride Carbon Dioxide Anion Gap BUN Creatinine Est GFR ( Amer) Est GFR (Non-Af Amer) POC Glucose (mg/dL) 158 H 108 Random Glucose Calcium Phosphorus Magnesium Total Bilirubin AST ALT Alkaline Phosphatase Total Protein Albumin Globulin Albumin/Globulin Ratio Vancomycin Trough Attending/Attestation - Attestation I have personally seen and examined this patient.: Yes I have fully participated in the care of the patient.: Yes I have reviewed all pertinent clinical information: Yes Notes (Text): 12/14/17 17:46 patient seen and examinedin the intensive care unit. Case discussedwith house staff in the morning rounds. Patient is off BiPAPon nasal cannula with good saturation On antibiotics Swallowing evaluation Continue present treatment for now Clinically much improved
--- NOTE | 2017-12-14 12:54 | CP.PCM.PN ---
Subjective - Date & Time of Evaluation Date of Evaluation: 12/14/17 Time of Evaluation: 12:53 - Subjective Subjective: Follow up Nephrology Consultation Note Assessment: Stable Acute Kidney Injury (N17.9) improved Hypernatremia, ACUTE RESPI FAILURE, moderate pulm HTN COPD/asthma, sepsis, hx of CVA Plan No acute need for renal replacement therapy at this time. Hypertension control with meds as ordered. Patient not on ACEI/ARB due to recent VALORIE supplement electrolytes as needed free water supplementation Dose meds/antibiotics for improved GFR. Avoid nephrotoxins/NSAIDs Glycemic control Further work up for as per primary team Thanks for allowing me to participate in care of your patient. Will sign off and see him further on PRN basis. Please call if any Qs. d/w ICU team Dr Isiah Stern Office: [phone] Subjective: Noted events overnight. Denies chest pain, palpitation, extubated now on Bipap Physical Examination: General Appearance: Comfortable, co-operative . Vitals reviewed and noted as below Head; Atraumatic, normocephalic ENT: no ulcers no thrush. Tongue is midline. Oropharynx: no rash or ulcers. EYES: Pupils are equal, round and reactive to light accommodation. Eye muscles and extraocular movement intact. Sclera is anicteric. Neck; supple no lymphadenopathy, no thyromegaly or bruit Lungs: Increased respiratory rate/effort. Breath sounds bibasal rales Heart: Normal rate. s1s2 normal. No rub or gallop. Extremities: no edema. No varicose veins Neurological: Patient is sleepy today. No focal deficit. Strength bilateral appropriate and equal Skin: Warm and dry. Normal turgor. No rash. Palpitation: Normal elasticity for age Abdomen: Abdomen is soft. Bowel sounds +. There is no abdominal tenderness, no guarding/rigidity no organomegaly Psych: normal insight and normal affect/mood MSK: no joint tenderness or swelling. Digits and nails normal, no deformity : kidney or bladder not palpable Labs/imaging reviewed. Past medical history, past surgical history, family history, social history, allergy reviewed and noted as below Family hx: no hx of CKD. Rest non-contributory Objective - Vital Signs/Intake and Output Vital Signs (last 24 hours): Temp Pulse Resp BP Pulse Ox 97.9 F 64 18 114/54 L 100 02/13/18 08:00 12/14/17 12:14 12/14/17 12:14 12/14/17 12:14 12/14/17 12:14 Intake and Output: 12/14/17 12/14/17 06:59 18:59 Intake Total 1302.8 484.4 Output Total 975 485 Balance 327.8 -0.6 - Medications Medications: Current Medications Acetaminophen (Tylenol 650mg/20.3ml Solution Ud) 650 mg PO Q6 PRN PRN Reason: Temperature Last Admin: 12/08/17 11:38 Dose: 650 mg Albumin Human (Albumin Human 25% (12.5 Gm/50 Ml)) 12.5 gm IV BID [facility] Stop: 12/15/17 10:01 Last Admin: 12/14/17 09:15 Dose: 12.5 gm Ascorbic Acid (Vitamin C 500 Mg Tab) 500 mg PO DAILY [facility] Last Admin: 12/14/17 09:16 Dose: 500 mg Heparin Sodium (Porcine) (Heparin) 5,000 units SC Q8 [facility] Last Admin: 12/14/17 06:18 Dose: 5,000 units Meropenem 500 mg/ Sodium (Chloride) 100 mls @ 100 mls/hr IVPB Q8 [facility] Last Admin: 12/14/17 06:17 Dose: 100 mls/hr Dopamine HCl/Dextrose (Dopamine 400mg/250ml D5w) 400 mg in 250 mls @ 38.785 mls /hr IV .Q6H27M PRN; Protocol; 12 MCG/KG/MIN PRN Reason: TITRATE PER MD ORDER Last Admin: 12/14/17 12:14 Dose: 9 mcg/kg/min, 29.088 mls/hr Vancomycin/Sodium Chloride (Vancomycin 1 Gm/Ns 200 Ml) 1 gm in 200 mls @ 133 mls/hr IVPB Q24H [facility] Stop: 12/19/17 18:01 Sodium Chloride (Sodium Chloride 0.9%) 1,000 mls @ 100 mls/hr IV .Q10H [facility] Last Admin: 12/14/17 11:40 Dose: 100 mls/hr Insulin Aspart (Novolog) 0 unit SC Q6H ABHIJEET PRN Reason: Protocol Last Admin: 12/14/17 12:11 Dose: 2 unit Midodrine (Proamatine) 2.5 mg PO TID [facility] Last Admin: 12/14/17 09:16 Dose: 2.5 mg Multivitamins (Hexavitamin) 1 tab PO DAILY [facility] Last Admin: 12/14/17 09:16 Dose: 1 tab Zinc Sulfate (Zinc Sulfate 220 Mg Cap) 220 mg PO DAILY [facility] Last Admin: 12/14/17 09:16 Dose: 220 mg - Labs Labs: 12/14/17 06:28 12/14/17 06:28 PT 13.5 SECONDS (9.7-12.2) H 12/13/17 06:38 INR 1.2 12/13/17 06:38 APTT 31 SECONDS (21-34) 11/26/17 17:31
[2017-12-14] MEDS: Vancomycin 1 gm/NS 200 ml 1 GM/200 ML BAG IVPB SCH (17:38)
[2017-12-15] MEDS: (Novolog) Insulin Aspart, Recombinant 100 u/ml 10 ml vial SC SCH ×4 (00:46→18:00)
[2017-12-15] MEDS: DOPamine 400mg/250ml D5W 400 MG/250 ML BAG IV PRN ×3 (01:14→23:05)
[2017-12-15] MEDS: Meropenem 500 MG in Sodium Chloride 0.9% 100 ML IVPB SCH ×3 (06:23→21:54)
[2017-12-15 06:31] LABS: BASO % 0.5 % (0.0-2.0); EOS # 0.3 K/uL (0.0-0.7); EOS % 3.4 % (0.0-4.0); HEMOGLOBIN 8.5 g/dL (12.0-18.0); LYMPH # 1.4 K/uL (1.0-4.3); LYMPH % 18.1 % (20.0-40.0); MEAN CELL VOLUME 83.7 fL (80.0-94.0); MEAN CORPUSCULAR HEMOGLOBIN 27.8 pg (27.0-31.0); MEAN CORPUSCULAR HGB CONC 33.2 g/dL (33.0-37.0); MEAN PLATELET VOLUME 8.5 fL (7.2-11.7); MONO # 0.5 K/uL (0.0-0.8); MONO % 6.9 % (0.0-10.0); NEUT # 5.4 K/uL (1.8-7.0); NEUT % 71.1 % (50.0-75.0); RBC 3.06 Mil/uL (4.40-5.90); RED CELL DISTRIBUTION WIDTH 16.3 % (11.5-14.5); WHITE BLOOD COUNT 7.6 K/uL (4.8-10.8)
[2017-12-15 06:48] LABS: ALB/GLOB RATIO 0.9 (1.0-2.1); ALBUMIN 3.1 g/dL (3.5-5.0); ALT/SGPT 93 U/L (21-72); AST/SGOT 43 U/L (17-59); BLOOD UREA NITROGEN 22 mg/dL (9-20); CALCIUM 8.3 mg/dl (8.6-10.4); GFR AFRICAN-AMERICAN > 60; GFR NON-AFRICAN AMERICAN > 60; MAGNESIUM 2.2 mg/dL (1.6-2.3)
[2017-12-15] MEDS: Sodium Chloride 0.9% 1,000 ML IV SCH (07:45)
[2017-12-15] MEDS: Albumin Human 25% (12.5 gm/50 ml) IV SCH (09:58)
[2017-12-15] MEDS: Multiple Vitamins Tab PO SCH (09:58)
--- NOTE | 2017-12-15 12:55 | CP.CCUPN ---
<Viral Perez - Last Filed: 12/15/17 13:00> CCU Subjective - Physician Review Subjective (Free Text): Patient seen and examined at bedside Extubated 2 days ago Patient was doing well on nasal cannula - attempted OOB to chair today when patient suddenly desaturated and BP dropped (possible vasovagal?), BiPap was placed and patient responded well. Remains dopamine for hypotension/bradycardia CCU Objective - Vital Signs / Intake & Output Vital Signs (Last 4 hours): Vital Signs Pulse Resp BP Pulse Ox 12/15/17 11:50 71 19 140/70 100 12/15/17 11:35 74 20 139/72 100 12/15/17 11:21 75 20 154/68 H 100 12/15/17 11:20 75 20 154/68 H 100 12/15/17 11:13 74 12/15/17 11:00 78 20 151/80 H 100 12/15/17 10:47 74 20 88/36 L 98 12/15/17 10:44 48 L 22 44/17 L 95 12/15/17 10:42 58 L 23 93 L 12/15/17 10:00 80 22 90/48 L 95 12/15/17 09:00 68 20 97 12/15/17 08:59 66 20 129/67 97 Intake and Output (Last 8hrs): Intake & Output 12/14/17 12/15/17 12/15/17 22:59 06:59 14:59 Intake Total 1017.2 1113.0 417.3 Output Total 665 420 190 Balance 352.2 693.0 227.3 Weight 172 lb 6.4 oz Intake: IV 86 114 291.1 Intake, IV Amount 931.2 999.0 126.2 Left Medial Port Internal 181.2 199.0 26.2 Jugular Left Proximal Port 750 800 100 Internal Jugular Output: Urine 665 420 190 Urethral (Singh) 665 420 190 Other: # Bowel Movements 0 0 0 - Physical Exam Head: Positive for: Atraumatic, Normocephalic Pupils: Positive for: PERRL Mouth: Positive for: Moist Mucous Membranes Respiratory/Chest: Positive for: Other (intubated) Abdomen: Positive for: Normal Bowel Sounds. Negative for: Tenderness, Distention, Peritoneal Signs Psychiatric: Positive for: Alert, Oriented x 3 - Medications Active Medications: Active Medications Generic Name Dose Route Start Last Admin Trade Name Freq PRN Reason Stop Dose Admin Acetaminophen 650 mg 12/06/17 09:30 12/08/17 11:38 Tylenol 650mg/20.3ml Solution Ud PO 650 mg Q6 PRN Administration Temperature Ascorbic Acid 500 mg 12/05/17 10:00 12/15/17 09:58 Vitamin C 500 Mg Tab PO 500 mg DAILY [facility]HIJEET Administration Heparin Sodium (Porcine) 5,000 units 12/12/17 22:00 12/15/17 06:23 Heparin SC 5,000 units Q8 [facility] Administration Meropenem 500 mg/ Sodium 100 mls @ 100 mls/hr 12/06/17 14:00 12/15/17 06:23 Chloride IVPB 100 mls/hr Q8 [facility]HIJE[facility] Administration Dopamine HCl/Dextrose 400 mg in 250 mls @ 38.785 mls/hr 12/12/17 15:18 12:37 Dopamine 400mg/250ml D5w IV 6 mcg/kg/min .Q6H27M PRN 19.392 mls/hr TITRATE PER MD ORDER Titration Protocol 12 MCG/KG/MIN Vancomycin/Sodium Chloride 1 gm in 200 mls @ 133 mls/hr 12/14/17 18:00 17:38 Vancomycin 1 Gm/Ns 200 Ml IVPB 12/19/17 18:01 133 mls/hr Q24H [facility]HI[facility] Administration Sodium Chloride 1,000 mls @ 100 mls/hr 12/14/17 11:45 12/15/17 07:45 Sodium Chloride 0.9% IV Not Given .Q10H [facility]HIJE[facility] Insulin Aspart 0 unit 12/02/17 18:00 12/15/17 12:00 Novolog SC Not Given Q6H [facility] Protocol Midodrine 2.5 mg 12/13/17 10:00 12/15/17 09:58 Proamatine PO 2.5 mg TID [facility]HIJEET Administration Multivitamins 1 tab 12/07/17 10:00 12/15/17 09:58 Hexavitamin PO 1 tab DAILY [facility] Administration Zinc Sulfate 220 mg 12/02/17 10:00 12/15/17 09:58 Zinc Sulfate 220 Mg Cap PO 220 mg DAILY [facility]HIJE[facility] Administration - Patient Studies Lab Studies: Lab Studies 02/14/18 02/14/18 02/14/18 Range/Units 11:50 06:24 06:23 WBC 7.6 (4.8-10.8) K/uL RBC 3.06 L (4.40-5.90) Mil/uL Hgb 8.5 L (12.0-18.0) g/dL Hct 25.6 L (35.0-51.0) % MCV 83.7 (80.0-94.0) fL MCH 27.8 (27.0-31.0) pg MCHC 33.2 (33.0-37.0) g/dL RDW 16.3 H (11.5-14.5) % Plt Count 218 (130-400) K/uL MPV 8.5 (7.2-11.7) fL Neut % (Auto) 71.1 (50.0-75.0) % Lymph % (Auto) 18.1 L (20.0-40.0) % Twiggs % (Auto) 6.9 (0.0-10.0) % Eos % (Auto) 3.4 (0.0-4.0) % Baso % (Auto) 0.5 (0.0-2.0) % Neut # (Auto) 5.4 (1.8-7.0) K/uL Lymph # (Auto) 1.4 (1.0-4.3) K/uL Twiggs # (Auto) 0.5 (0.0-0.8) K/uL Eos # (Auto) 0.3 (0.0-0.7) K/uL Baso # (Auto) 0.0 (0.0-0.2) K/uL Sodium 149 H (132-148) mmol/L Potassium 3.3 L (3.6-5.2) mmol/L Chloride 109 H (98-107) mmol/L Carbon Dioxide 31 H (22-30) mmol/L Anion Gap 11 (10-20) BUN 22 H (9-20) mg/dL Creatinine 0.9 (0.8-1.5) mg/dL Est GFR ( Amer) > 60 Est GFR (Non-Af Amer) > 60 POC Glucose (mg/dL) 129 H (65-110) mg/dL Random Glucose 114 H (75-110) mg/dL Calcium 8.3 L (8.6-10.4) mg/dl Phosphorus 2.7 (2.5-4.5) mg/dL Magnesium 2.2 (1.6-2.3) mg/dL Total Bilirubin 0.5 (0.2-1.3) mg/dL AST 43 (17-59) U/L ALT 93 H D (21-72) U/L Alkaline Phosphatase 67 (38-126) U/L Total Protein 6.5 (6.3-8.3) g/dL Albumin 3.1 L (3.5-5.0) g/dL Globulin 3.4 (2.2-3.9) gm/dL Albumin/Globulin Ratio 0.9 L (1.0-2.1) C. difficile Tox B Gene (Not Detected) 12/15/17 12/14/17 12/14/17 Range/Units 06:08 23:59 17:23 WBC (4.8-10.8) K/uL RBC (4.40-5.90) Mil/uL Hgb (12.0-18.0) g/dL Hct (35.0-51.0) % MCV (80.0-94.0) fL MCH (27.0-31.0) pg MCHC (33.0-37.0) g/dL RDW (11.5-14.5) % Plt Count (130-400) K/uL MPV (7.2-11.7) fL Neut % (Auto) (50.0-75.0) % Lymph % (Auto) (20.0-40.0) % Twiggs % (Auto) (0.0-10.0) % Eos % (Auto) (0.0-4.0) % Baso % (Auto) (0.0-2.0) % Neut # (Auto) (1.8-7.0) K/uL Lymph # (Auto) (1.0-4.3) K/uL Twiggs # (Auto) (0.0-0.8) K/uL Eos # (Auto) (0.0-0.7) K/uL Baso # (Auto) (0.0-0.2) K/uL Sodium (132-148) mmol/L Potassium (3.6-5.2) mmol/L Chloride (98-107) mmol/L Carbon Dioxide (22-30) mmol/L Anion Gap (10-20) BUN (9-20) mg/dL Creatinine (0.8-1.5) mg/dL Est GFR ( Amer) Est GFR (Non-Af Amer) POC Glucose (mg/dL) 105 90 108 (65-110) mg/dL Random Glucose (75-110) mg/dL Calcium (8.6-10.4) mg/dl Phosphorus (2.5-4.5) mg/dL Magnesium (1.6-2.3) mg/dL Total Bilirubin (0.2-1.3) mg/dL AST (17-59) U/L ALT (21-72) U/L Alkaline Phosphatase (38-126) U/L Total Protein (6.3-8.3) g/dL Albumin (3.5-5.0) g/dL Globulin (2.2-3.9) gm/dL Albumin/Globulin Ratio (1.0-2.1) C. difficile Tox B Gene (Not Detected) 12/14/17 12/12/17 Range/Units 11:58 08:45 WBC (4.8-10.8) K/uL RBC (4.40-5.90) Mil/uL Hgb (12.0-18.0) g/dL Hct (35.0-51.0) % MCV (80.0-94.0) fL MCH (27.0-31.0) pg MCHC (33.0-37.0) g/dL RDW (11.5-14.5) % Plt Count (130-400) K/uL MPV (7.2-11.7) fL Neut % (Auto) (50.0-75.0) % Lymph % (Auto) (20.0-40.0) % Twiggs % (Auto) (0.0-10.0) % Eos % (Auto) (0.0-4.0) % Baso % (Auto) (0.0-2.0) % Neut # (Auto) (1.8-7.0) K/uL Lymph # (Auto) (1.0-4.3) K/uL Twiggs # (Auto) (0.0-0.8) K/uL Eos # (Auto) (0.0-0.7) K/uL Baso # (Auto) (0.0-0.2) K/uL Sodium (132-148) mmol/L Potassium (3.6-5.2) mmol/L Chloride (98-107) mmol/L Carbon Dioxide (22-30) mmol/L Anion Gap (10-20) BUN (9-20) mg/dL Creatinine (0.8-1.5) mg/dL Est GFR ( Amer) Est GFR (Non-Af Amer) POC Glucose (mg/dL) 158 H (65-110) mg/dL Random Glucose (75-110) mg/dL Calcium (8.6-10.4) mg/dl Phosphorus (2.5-4.5) mg/dL Magnesium (1.6-2.3) mg/dL Total Bilirubin (0.2-1.3) mg/dL AST (17-59) U/L ALT (21-72) U/L Alkaline Phosphatase (38-126) U/L Total Protein (6.3-8.3) g/dL Albumin (3.5-5.0) g/dL Globulin (2.2-3.9) gm/dL Albumin/Globulin Ratio (1.0-2.1) C. difficile Tox B Gene Not detected (Not Detected) Laboratory Results - last 24 hr 12/12/17 12/14/17 12/14/17 08:45 11:58 17:23 WBC RBC Hgb Hct MCV MCH MCHC RDW Plt Count MPV Neut % (Auto) Lymph % (Auto) Twiggs % (Auto) Eos % (Auto) Baso % (Auto) Neut # (Auto) Lymph # (Auto) Twiggs # (Auto) Eos # (Auto) Baso # (Auto) Sodium Potassium Chloride Carbon Dioxide Anion Gap BUN Creatinine Est GFR ( Amer) Est GFR (Non-Af Amer) POC Glucose (mg/dL) 158 H 108 Random Glucose Calcium Phosphorus Magnesium Total Bilirubin AST ALT Alkaline Phosphatase Total Protein Albumin Globulin Albumin/Globulin Ratio C. difficile Tox B Gene Not detected 12/14/17 12/15/17 12/15/17 23:59 06:08 06:23 WBC RBC Hgb Hct MCV MCH MCHC RDW Plt Count MPV Neut % (Auto) Lymph % (Auto) Twiggs % (Auto) Eos % (Auto) Baso % (Auto) Neut # (Auto) Lymph # (Auto) Twiggs # (Auto) Eos # (Auto) Baso # (Auto) Sodium 149 H Potassium 3.3 L Chloride 109 H Carbon Dioxide 31 H Anion Gap 11 BUN 22 H Creatinine 0.9 Est GFR ( Amer) > 60 Est GFR (Non-Af Amer) > 60 POC Glucose (mg/dL) 90 105 Random Glucose 114 H Calcium 8.3 L Phosphorus 2.7 Magnesium 2.2 Total Bilirubin 0.5 AST 43 ALT 93 H D Alkaline Phosphatase 67 Total Protein 6.5 Albumin 3.1 L Globulin 3.4 Albumin/Globulin Ratio 0.9 L C. difficile Tox B Gene 12/15/17 12/15/17 06:24 11:50 WBC 7.6 RBC 3.06 L Hgb 8.5 L Hct 25.6 L MCV 83.7 MCH 27.8 MCHC 33.2 RDW 16.3 H Plt Count 218 MPV 8.5 Neut % (Auto) 71.1 Lymph % (Auto) 18.1 L Twiggs % (Auto) 6.9 Eos % (Auto) 3.4 Baso % (Auto) 0.5 Neut # (Auto) 5.4 Lymph # (Auto) 1.4 Twiggs # (Auto) 0.5 Eos # (Auto) 0.3 Baso # (Auto) 0.0 Sodium Potassium Chloride Carbon Dioxide Anion Gap BUN Creatinine Est GFR ( Amer) Est GFR (Non-Af Amer) POC Glucose (mg/dL) 129 H Random Glucose Calcium Phosphorus Magnesium Total Bilirubin AST ALT Alkaline Phosphatase Total Protein Albumin Globulin Albumin/Globulin Ratio C. difficile Tox B Gene Fingerstick Blood Sugar Results: 105 Review of Systems - Review of Systems All systems: reviewed and no additional remarkable complaints except (as above) Critical Care Progress Note - Nutrition Nutrition: Nutrition Category Date Time Status Regular Diet [DIET] Diets 12/15/17 Breakfast Active Assessment/Plan - Assessment and Plan (Free Text) Assessment: Neuro: prior CVA Cardio: hx of HTN (Bruno) continue dopamine, titrate to MAP > 65 midodrine 2.5mg PO TID Pulm: hx of Asthma, COPD, hypoxia MRSA in Blood and sputum culture Extubated 12/13 Requires Bipap FiO2 100% continue vanco 1gm IV QD meropenem 1gm IV TID CT angio was negative for PE GI: no acute problems tube feeds at 30ccs swallow eval Renal/Uro: hx of BPH continue flomax 0.4mg QD (Horton) VALORIE resolved Endo: no acute issues Electrolytes: hypernatremia resolved, hypokalemia kdur ID: Septic shock, MRSA + sputum culture and blood culture (Mangia) continue vanco 1gm IV QD meropenem 1gm IV TID dopamine drip Skin: pressure ulcer Vitamin C zinc sulfate PPx: pepcid 20mg QD Heparin 5,000 units full code <[email or web address] S - Last Filed: 12/15/17 16:38> CCU Objective - Vital Signs / Intake & Output Vital Signs (Last 4 hours): Vital Signs Pulse Resp BP Pulse Ox 12/15/17 13:42 72 12/15/17 13:00 72 14 100 12/15/17 12:59 70 21 82/29 L 100 Intake and Output (Last 8hrs): Intake & Output 12/15/17 12/15/17 12/15/17 06:59 14:59 22:59 Intake Total 1113.0 427.5 Output Total 420 330 Balance 693.0 97.5 Weight 172 lb 6.4 oz Intake: IV 114 301.3 Intake, IV Amount 999.0 126.2 Left Medial Port Internal 199.0 26.2 Jugular Left Proximal Port 800 100 Internal Jugular Output: Urine 420 330 Urethral (Singh) 420 330 Other: # Bowel Movements 0 0 - Medications Active Medications: Active Medications Generic Name Dose Route Start Last Admin Trade Name Freq PRN Reason Stop Dose Admin Acetaminophen 650 mg 12/06/17 09:30 12/08/17 11:38 Tylenol 650mg/20.3ml Solution Ud PO 650 mg Q6 PRN Administration Temperature Ascorbic Acid 500 mg 12/05/17 10:00 12/15/17 09:58 Vitamin C 500 Mg Tab PO 500 mg DAILY ABHIJEET Administration Famotidine 20 mg 12/15/17 16:00 Pepcid IVP DAILY ABHIJEET Heparin Sodium (Porcine) 5,000 units 12/12/17 22:00 12/15/17 13:05 Heparin SC 5,000 units Q8 [facility] Administration Meropenem 500 mg/ Sodium 100 mls @ 100 mls/hr 12/06/17 14:00 12/15/17 13:20 Chloride IVPB 100 mls/hr Q8 [facility]HIJEET Administration Dopamine HCl/Dextrose 400 mg in 250 mls @ 38.785 mls/hr 12/12/17 15:18 13:00 Dopamine 400mg/250ml D5w IV 10 mcg/kg/min .Q6H27M PRN 32.321 mls/hr TITRATE PER MD ORDER Titration Protocol 12 MCG/KG/MIN Vancomycin/Sodium Chloride 1 gm in 200 mls @ 133 mls/hr 12/14/17 18:00 17:38 Vancomycin 1 Gm/Ns 200 Ml IVPB 12/19/17 18:01 133 mls/hr Q24H [facility] Administration Sodium Chloride 1,000 mls @ 100 mls/hr 12/14/17 11:45 12/15/17 07:45 Sodium Chloride 0.9% IV Not Given .Q10H [facility]HIJEET Insulin Aspart 0 unit 12/02/17 18:00 12/15/17 12:00 Novolog SC Not Given Q6H [facility] Protocol Midodrine 2.5 mg 12/13/17 10:00 12/15/17 14:00 Proamatine PO Not Given TID ABHIJEET Multivitamins 1 tab 12/07/17 10:00 12/15/17 09:58 Hexavitamin PO 1 tab DAILY [facility]JE[facility] Administration Zinc Sulfate 220 mg 12/02/17 10:00 12/15/17 09:58 Zinc Sulfate 220 Mg Cap PO 220 mg DAILY ABHIJEET Administration - Patient Studies Lab Studies: Lab Studies 12/15/17 12/15/17 12/15/17 Range/Units 11:50 06:24 06:23 WBC 7.6 (4.8-10.8) K/uL RBC 3.06 L (4.40-5.90) Mil/uL Hgb 8.5 L (12.0-18.0) g/dL Hct 25.6 L (35.0-51.0) % MCV 83.7 (80.0-94.0) fL MCH 27.8 (27.0-31.0) pg MCHC 33.2 (33.0-37.0) g/dL RDW 16.3 H (11.5-14.5) % Plt Count 218 (130-400) K/uL MPV 8.5 (7.2-11.7) fL Neut % (Auto) 71.1 (50.0-75.0) % Lymph % (Auto) 18.1 L (20.0-40.0) % Twiggs % (Auto) 6.9 (0.0-10.0) % Eos % (Auto) 3.4 (0.0-4.0) % Baso % (Auto) 0.5 (0.0-2.0) % Neut # (Auto) 5.4 (1.8-7.0) K/uL Lymph # (Auto) 1.4 (1.0-4.3) K/uL Twiggs # (Auto) 0.5 (0.0-0.8) K/uL Eos # (Auto) 0.3 (0.0-0.7) K/uL Baso # (Auto) 0.0 (0.0-0.2) K/uL Sodium 149 H (132-148) mmol/L Potassium 3.3 L (3.6-5.2) mmol/L Chloride 109 H (98-107) mmol/L Carbon Dioxide 31 H (22-30) mmol/L Anion Gap 11 (10-20) BUN 22 H (9-20) mg/dL Creatinine 0.9 (0.8-1.5) mg/dL Est GFR ( Amer) > 60 Est GFR (Non-Af Amer) > 60 POC Glucose (mg/dL) 129 H (65-110) mg/dL Random Glucose 114 H (75-110) mg/dL Calcium 8.3 L (8.6-10.4) mg/dl Phosphorus 2.7 (2.5-4.5) mg/dL Magnesium 2.2 (1.6-2.3) mg/dL Total Bilirubin 0.5 (0.2-1.3) mg/dL AST 43 (17-59) U/L ALT 93 H D (21-72) U/L Alkaline Phosphatase 67 (38-126) U/L Total Protein 6.5 (6.3-8.3) g/dL Albumin 3.1 L (3.5-5.0) g/dL Globulin 3.4 (2.2-3.9) gm/dL Albumin/Globulin Ratio 0.9 L (1.0-2.1) C. difficile Tox B Gene (Not Detected) 12/15/17 12/14/17 12/14/17 Range/Units 06:08 23:59 17:23 WBC (4.8-10.8) K/uL RBC (4.40-5.90) Mil/uL Hgb (12.0-18.0) g/dL Hct (35.0-51.0) % MCV (80.0-94.0) fL MCH (27.0-31.0) pg MCHC (33.0-37.0) g/dL RDW (11.5-14.5) % Plt Count (130-400) K/uL MPV (7.2-11.7) fL Neut % (Auto) (50.0-75.0) % Lymph % (Auto) (20.0-40.0) % Twiggs % (Auto) (0.0-10.0) % Eos % (Auto) (0.0-4.0) % Baso % (Auto) (0.0-2.0) % Neut # (Auto) (1.8-7.0) K/uL Lymph # (Auto) (1.0-4.3) K/uL Tw[place]gs # (Auto) (0.0-0.8) K/uL Eos # (Auto) (0.0-0.7) K/uL Baso # (Auto) (0.0-0.2) K/uL Sodium (132-148) mmol/L Potassium (3.6-5.2) mmol/L Chloride (98-107) mmol/L Carbon Dioxide (22-30) mmol/L Anion Gap (10-20) BUN (9-20) mg/dL Creatinine (0.8-1.5) mg/dL Est GFR ( Amer) Est GFR (Non-Af Amer) POC Glucose (mg/dL) 105 90 108 (65-110) mg/dL Random Glucose (75-110) mg/dL Calcium (8.6-10.4) mg/dl Phosphorus (2.5-4.5) mg/dL Magnesium (1.6-2.3) mg/dL Total Bilirubin (0.2-1.3) mg/dL AST (17-59) U/L ALT (21-72) U/L Alkaline Phosphatase (38-126) U/L Total Protein (6.3-8.3) g/dL Albumin (3.5-5.0) g/dL Globulin (2.2-3.9) gm/dL Albumin/Globulin Ratio (1.0-2.1) C. difficile Tox B Gene (Not Detected) 12/12/17 Range/Units 08:45 WBC (4.8-10.8) K/uL RBC (4.40-5.90) Mil/uL Hgb (12.0-18.0) g/dL Hct (35.0-51.0) % MCV (80.0-94.0) fL MCH (27.0-31.0) pg MCHC (33.0-37.0) g/dL RDW (11.5-14.5) % Plt Count (130-400) K/uL MPV (7.2-11.7) fL Neut % (Auto) (50.0-75.0) % Lymph % (Auto) (20.0-40.0) % Twiggs % (Auto) (0.0-10.0) % Eos % (Auto) (0.0-4.0) % Baso % (Auto) (0.0-2.0) % Neut # (Auto) (1.8-7.0) K/uL Lymph # (Auto) (1.0-4.3) K/uL Twiggs # (Auto) (0.0-0.8) K/uL Eos # (Auto) (0.0-0.7) K/uL Baso # (Auto) (0.0-0.2) K/uL Sodium (132-148) mmol/L Potassium (3.6-5.2) mmol/L Chloride (98-107) mmol/L Carbon Dioxide (22-30) mmol/L Anion Gap (10-20) BUN (9-20) mg/dL Creatinine (0.8-1.5) mg/dL Est GFR ( Amer) Est GFR (Non-Af Amer) POC Glucose (mg/dL) (65-110) mg/dL Random Glucose (75-110) mg/dL Calcium (8.6-10.4) mg/dl Phosphorus (2.5-4.5) mg/dL Magnesium (1.6-2.3) mg/dL Total Bilirubin (0.2-1.3) mg/dL AST (17-59) U/L ALT (21-72) U/L Alkaline Phosphatase (38-126) U/L Total Protein (6.3-8.3) g/dL Albumin (3.5-5.0) g/dL Globulin (2.2-3.9) gm/dL Albumin/Globulin Ratio (1.0-2.1) C. difficile Tox B Gene Not detected (Not Detected) Laboratory Results - last 24 hr 12/12/17 12/14/17 12/14/17 08:45 17:23 23:59 WBC RBC Hgb Hct MCV MCH MCHC RDW Plt Count MPV Neut % (Auto) Lymph % (Auto) [place] % (Auto) Eos % (Auto) Baso % (Auto) Neut # (Auto) Lymph # (Auto) [place] # (Auto) Eos # (Auto) Baso # (Auto) Sodium Potassium Chloride Carbon Dioxide Anion Gap BUN Creatinine Est GFR ( Amer) Est GFR (Non-Af Amer) POC Glucose (mg/dL) 108 90 Random Glucose Calcium Phosphorus Magnesium Total Bilirubin AST ALT Alkaline Phosphatase Total Protein Albumin Globulin Albumin/Globulin Ratio C. difficile Tox B Gene Not detected 12/15/17 12/15/17 12/15/17 06:08 06:23 06:24 WBC 7.6 RBC 3.06 L Hgb 8.5 L Hct 25.6 L MCV 83.7 MCH 27.8 MCHC 33.2 RDW 16.3 H Plt Count 218 MPV 8.5 Neut % (Auto) 71.1 Lymph % (Auto) 18.1 L [place] % (Auto) 6.9 Eos % (Auto) 3.4 Baso % (Auto) 0.5 Neut # (Auto) 5.4 Lymph # (Auto) 1.4 [place] # (Auto) 0.5 Eos # (Auto) 0.3 Baso # (Auto) 0.0 Sodium 149 H Potassium 3.3 L Chloride 109 H Carbon Dioxide 31 H Anion Gap 11 BUN 22 H Creatinine 0.9 Est GFR ( Amer) > 60 Est GFR (Non-Af Amer) > 60 POC Glucose (mg/dL) 105 Random Glucose 114 H Calcium 8.3 L Phosphorus 2.7 Magnesium 2.2 Total Bilirubin 0.5 AST 43 ALT 93 H D Alkaline Phosphatase 67 Total Protein 6.5 Albumin 3.1 L Globulin 3.4 Albumin/Globulin Ratio 0.9 L C. difficile Tox B Gene 12/15/17 11:50 WBC RBC Hgb Hct MCV MCH MCHC RDW Plt Count MPV Neut % (Auto) Lymph % (Auto) [place] % (Auto) Eos % (Auto) Baso % (Auto) Neut # (Auto) Lymph # (Auto) [place] # (Auto) Eos # (Auto) Baso # (Auto) Sodium Potassium Chloride Carbon Dioxide Anion Gap BUN Creatinine Est GFR ( Amer) Est GFR (Non-Af Amer) POC Glucose (mg/dL) 129 H Random Glucose Calcium Phosphorus Magnesium Total Bilirubin AST ALT Alkaline Phosphatase Total Protein Albumin Globulin Albumin/Globulin Ratio C. difficile Tox B Gene Critical Care Progress Note - Nutrition Nutrition: Nutrition Category Date Time Status Regular Diet [DIET] Diets 12/15/17 Breakfast Active Attending/Attestation - Attestation I have personally seen and examined this patient.: Yes I have fully participated in the care of the patient.: Yes I have reviewed all pertinent clinical information: Yes Notes (Text): 12/15/17 16:37 Patient seen and examined in the intensive care unit. Patient had an episode of shortness of breath associated with bradycardia Responded to [facility] bag Swallowing evaluation Continue present treatment
[2017-12-15] MEDS: Vancomycin 1 gm/NS 200 ml 1 GM/200 ML BAG IVPB SCH (17:52)
[2017-12-16] MEDS: Sodium Chloride 0.9% 1,000 ML IV SCH ×2 (03:45→16:58)
[2017-12-16] MEDS: (Novolog) Insulin Aspart, Recombinant 100 u/ml 10 ml vial SC SCH ×5 (06:10→23:57)
[2017-12-16] MEDS: Meropenem 500 MG in Sodium Chloride 0.9% 100 ML IVPB SCH ×3 (06:15→21:20)
[2017-12-16 06:41] LABS: BASO % 0.5 % (0.0-2.0); EOS # 0.3 K/uL (0.0-0.7); EOS % 3.5 % (0.0-4.0); HEMOGLOBIN 8.3 g/dL (12.0-18.0); LYMPH # 1.4 K/uL (1.0-4.3); LYMPH % 18.6 % (20.0-40.0); MEAN CELL VOLUME 83.1 fL (80.0-94.0); MEAN CORPUSCULAR HEMOGLOBIN 27.8 pg (27.0-31.0); MEAN CORPUSCULAR HGB CONC 33.5 g/dL (33.0-37.0); MEAN PLATELET VOLUME 8.5 fL (7.2-11.7); MONO # 0.5 K/uL (0.0-0.8); MONO % 7.1 % (0.0-10.0); NEUT # 5.1 K/uL (1.8-7.0); NEUT % 70.3 % (50.0-75.0); NRBC % 0.1 % (0.0-2.0); RBC 2.97 Mil/uL (4.40-5.90); RED CELL DISTRIBUTION WIDTH 16.7 % (11.5-14.5); WHITE BLOOD COUNT 7.3 K/uL (4.8-10.8)
[2017-12-16 07:07] LABS: ALB/GLOB RATIO 0.9 (1.0-2.1); ALT/SGPT 76 U/L (21-72); AST/SGOT 33 U/L (17-59); BLOOD UREA NITROGEN 16 mg/dL (9-20); CALCIUM 8.2 mg/dl (8.6-10.4); GFR AFRICAN-AMERICAN > 60; GFR NON-AFRICAN AMERICAN > 60
[2017-12-16] MEDS ORDERED: Potassium Chloride 20 mEq/15 ml LIQ UD PO ONE (08:17)
[2017-12-16] MEDS: Multiple Vitamins Tab PO SCH (09:25)
--- NOTE | 2017-12-16 10:16 | CP.PCM.PN ---
Subjective - Date & Time of Evaluation Date of Evaluation: 12/16/17 Time of Evaluation: 10:00 - Subjective Subjective: patientfeels well. no chest pain or dyspnea Objective - Vital Signs/Intake and Output Vital Signs (last 24 hours): Temp Pulse Resp BP Pulse Ox 98.6 F 74 20 140/63 96 12/16/17 07:30 12/16/17 08:02 12/16/17 08:02 12/16/17 08:02 12/16/17 08:02 Intake and Output: 12/16/17 12/16/17 06:59 18:59 Intake Total 1796.2 234.8 Output Total 805 155 Balance 991.2 79.8 - Medications Medications: Current Medications Acetaminophen (Tylenol 650mg/20.3ml Solution Ud) 650 mg PO Q6 PRN PRN Reason: Temperature Last Admin: 12/08/17 11:38 Dose: 650 mg Ascorbic Acid (Vitamin C 500 Mg Tab) 500 mg PO DAILY [facility] Last Admin: 12/16/17 09:24 Dose: 500 mg Famotidine (Pepcid) 20 mg IVP DAILY [facility] Last Admin: 12/16/17 09:25 Dose: 20 mg Heparin Sodium (Porcine) (Heparin) 5,000 units SC Q8 [facility] Last Admin: 12/16/17 06:15 Dose: 5,000 units Meropenem 500 mg/ Sodium (Chloride) 100 mls @ 100 mls/hr IVPB Q8 [facility] Last Admin: 12/16/17 06:15 Dose: 100 mls/hr Dopamine HCl/Dextrose (Dopamine 400mg/250ml D5w) 400 mg in 250 mls @ 38.785 mls /hr IV .Q6H27M PRN; Protocol; 12 MCG/KG/MIN PRN Reason: TITRATE PER MD ORDER Last Admin: 12/15/17 23:05 Dose: 5.38 mcg/kg/min, 17.4 mls/hr Vancomycin/Sodium Chloride (Vancomycin 1 Gm/Ns 200 Ml) 1 gm in 200 mls @ 133 mls/hr IVPB Q24H [facility] Stop: 12/19/17 18:01 Last Admin: 12/15/17 17:52 Dose: 133 mls/hr Sodium Chloride (Sodium Chloride 0.9%) 1,000 mls @ 100 mls/hr IV .Q10H [facility] Last Admin: 12/16/17 03:45 Dose: Not Given Insulin Aspart (Novolog) 0 unit SC Q6H [facility] PRN Reason: Protocol Last Admin: 12/16/17 06:10 Dose: Not Given Midodrine (Proamatine) 2.5 mg PO TID [facility] Last Admin: 12/16/17 09:24 Dose: 2.5 mg Multivitamins (Hexavitamin) 1 tab PO DAILY [facility] Last Admin: 12/16/17 09:25 Dose: 1 tab Zinc Sulfate (Zinc Sulfate 220 Mg Cap) 220 mg PO DAILY [facility] Last Admin: 12/16/17 09:24 Dose: 220 mg - Labs Labs: 12/16/17 06:34 12/16/17 06:32 PT 13.5 SECONDS (9.7-12.2) H 12/13/17 06:38 INR 1.2 12/13/17 06:38 APTT 31 SECONDS (21-34) 11/26/17 17:31 - Constitutional Appears: Non-toxic - Head Exam Head Exam: NORMAL INSPECTION - Eye Exam Eye Exam: Normal appearance - ENT Exam ENT Exam: Mucous Membranes Moist - Neck Exam Neck Exam: Full ROM - Respiratory Exam Respiratory Exam: NORMAL BREATHING PATTERN - Cardiovascular Exam Cardiovascular Exam: REGULAR RHYTHM - GI/Abdominal Exam GI & Abdominal Exam: Normal Bowel Sounds - Rectal Exam Rectal Exam: Deferred - Extremities Exam Extremities Exam: absent: Pedal Edema - Back Exam Back Exam: NORMAL INSPECTION - Neurological Exam Neurological Exam: Alert - Psychiatric Exam Psychiatric exam: Normal Affect - Skin Skin Exam: Normal Color Assessment and Plan (1) Cardiac arrest Assessment & Plan: extubated. recommend titration of dopamine and assess heart rate. Status: Acute (2) Hypernatremia Status: Acute
--- NOTE | 2017-12-16 11:41 | CP.CCUPN ---
<Viral Perez - Last Filed: 12/16/17 11:37> CCU Subjective - Physician Review Subjective (Free Text): Patient seen and examined at bedside - offers no complaints Extubated 3 days ago Patient was doing well on nasal cannula - attempted OOB to chair yesterday when patient suddenly desaturated and BP dropped (possible vasovagal?), BiPap was placed and patient responded well. Today saturating well on nasal cannula 3L Remains on dopamine for hypotension/bradycardia - today we will begin to titrate down Will remove sanders today and place [place] catheter CCU Objective - Vital Signs / Intake & Output Vital Signs (Last 4 hours): Vital Signs Pulse Resp BP Pulse Ox 12/16/17 11:01 66 19 98/52 L 96 12/16/17 11:00 72 19 97 12/16/17 10:41 73 20 90/54 L 97 12/16/17 10:02 73 18 138/71 98 12/16/17 10:00 73 16 98 12/16/17 09:01 79 10 L 116/70 96 12/16/17 09:00 88 15 98 12/16/17 08:02 74 20 140/63 96 12/16/17 08:00 71 15 97 Intake and Output (Last 8hrs): Intake & Output 12/15/17 12/16/17 12/16/17 22:59 06:59 14:59 Intake Total 1142.7 1327.9 774.2 Output Total 550 535 155 Balance 592.7 792.9 619.2 Weight 176 lb Intake: IV 10 188.7 187.2 Intake, IV Amount 1032.7 939.2 587.0 Left Medial Port Internal 132.7 139.2 87.0 Jugular Left Proximal Port 900 800 500 Internal Jugular Oral 100 200 0 Output: Urine 550 535 155 Urethral (Sanders) 550 535 155 Other: # Bowel Movements 0 0 0 - Physical Exam Head: Positive for: Atraumatic, Normocephalic Pupils: Positive for: PERRL Mouth: Positive for: Moist Mucous Membranes Respiratory/Chest: Positive for: Other (intubated) Abdomen: Positive for: Normal Bowel Sounds. Negative for: Tenderness, Distention, Peritoneal Signs Psychiatric: Positive for: Alert, Oriented x 3 - Medications Active Medications: Active Medications Generic Name Dose Route Start Last Admin Trade Name Freq PRN Reason Stop Dose Admin Acetaminophen 650 mg 12/06/17 09:30 12/08/17 11:38 Tylenol 650mg/20.3ml Solution Ud PO 650 mg Q6 PRN Administration Temperature Ascorbic Acid 500 mg 12/05/17 10:00 12/16/17 09:24 Vitamin C 500 Mg Tab PO 500 mg DAILY [facility] Administration Famotidine 20 mg 12/15/17 16:00 12/16/17 09:25 Pepcid IVP 20 mg DAILY [facility] Administration Heparin Sodium (Porcine) 5,000 units 12/12/17 22:00 12/16/17 06:15 Heparin SC 5,000 units Q8 [facility] Administration Meropenem 500 mg/ Sodium 100 mls @ 100 mls/hr 12/06/17 14:00 12/16/17 06:15 Chloride IVPB 100 mls/hr Q8 [facility] Administration Dopamine HCl/Dextrose 400 mg in 250 mls @ 38.785 mls/hr 12/12/17 15:18 11:00 Dopamine 400mg/250ml D5w IV 3 mcg/kg/min .Q6H27M PRN 9.696 mls/hr TITRATE PER MD ORDER Titration Protocol 12 MCG/KG/MIN Vancomycin/Sodium Chloride 1 gm in 200 mls @ 133 mls/hr 12/14/17 18:00 17:52 Vancomycin 1 Gm/Ns 200 Ml IVPB 12/19/17 18:01 133 mls/hr Q24H [facility] Administration Sodium Chloride 1,000 mls @ 100 mls/hr 12/14/17 11:45 12/16/17 03:45 Sodium Chloride 0.9% IV Not Given .Q10H [facility] Insulin Aspart 0 unit 12/02/17 18:00 12/16/17 06:10 Novolog SC Not Given Q6H [facility] Protocol Midodrine 2.5 mg 12/13/17 10:00 12/16/17 09:24 Proamatine PO 2.5 mg TID [facility] Administration Multivitamins 1 tab 12/07/17 10:00 12/16/17 09:25 Hexavitamin PO 1 tab DAILY [facility] Administration Zinc Sulfate 220 mg 12/02/17 10:00 12/16/17 09:24 Zinc Sulfate 220 Mg Cap PO 220 mg DAILY [facility] Administration - Patient Studies Lab Studies: Lab Studies 12/16/17 12/16/17 12/16/17 Range/Units 06:34 06:32 06:07 WBC 7.3 (4.8-10.8) K/uL RBC 2.97 L (4.40-5.90) Mil/uL Hgb 8.3 L (12.0-18.0) g/dL Hct 24.7 L (35.0-51.0) % MCV 83.1 (80.0-94.0) fL MCH 27.8 (27.0-31.0) pg MCHC 33.5 (33.0-37.0) g/dL RDW 16.7 H (11.5-14.5) % Plt Count 231 (130-400) K/uL MPV 8.5 (7.2-11.7) fL Neut % (Auto) 70.3 (50.0-75.0) % Lymph % (Auto) 18.6 L (20.0-40.0) % [place] % (Auto) 7.1 (0.0-10.0) % Eos % (Auto) 3.5 (0.0-4.0) % Baso % (Auto) 0.5 (0.0-2.0) % Neut # (Auto) 5.1 (1.8-7.0) K/uL Lymph # (Auto) 1.4 (1.0-4.3) K/uL [place] # (Auto) 0.5 (0.0-0.8) K/uL Eos # (Auto) 0.3 (0.0-0.7) K/uL Baso # (Auto) 0.0 (0.0-0.2) K/uL Sodium 149 H (132-148) mmol/L Potassium 3.0 L (3.6-5.2) mmol/L Chloride 111 H (98-107) mmol/L Carbon Dioxide 28 (22-30) mmol/L Anion Gap 13 (10-20) BUN 16 (9-20) mg/dL Creatinine 0.9 (0.8-1.5) mg/dL Est GFR ( Amer) > 60 Est GFR (Non-Af Amer) > 60 POC Glucose (mg/dL) 90 (65-110) mg/dL Random Glucose 95 (75-110) mg/dL Calcium 8.2 L (8.6-10.4) mg/dl Phosphorus 1.9 L (2.5-4.5) mg/dL Magnesium 2.0 (1.6-2.3) mg/dL Total Bilirubin 0.6 (0.2-1.3) mg/dL AST 33 (17-59) U/L ALT 76 H (21-72) U/L Alkaline Phosphatase 74 (38-126) U/L Total Protein 6.4 (6.3-8.3) g/dL Albumin 3.0 L (3.5-5.0) g/dL Globulin 3.4 (2.2-3.9) gm/dL Albumin/Globulin Ratio 0.9 L (1.0-2.1) 12/15/17 12/15/17 12/15/17 Range/Units 23:17 17:43 11:50 WBC (4.8-10.8) K/uL RBC (4.40-5.90) Mil/uL Hgb (12.0-18.0) g/dL Hct (35.0-51.0) % MCV (80.0-94.0) fL MCH (27.0-31.0) pg MCHC (33.0-37.0) g/dL RDW (11.5-14.5) % Plt Count (130-400) K/uL MPV (7.2-11.7) fL Neut % (Auto) (50.0-75.0) % Lymph % (Auto) (20.0-40.0) % [place] % (Auto) (0.0-10.0) % Eos % (Auto) (0.0-4.0) % Baso % (Auto) (0.0-2.0) % Neut # (Auto) (1.8-7.0) K/uL Lymph # (Auto) (1.0-4.3) K/uL [place] # (Auto) (0.0-0.8) K/uL Eos # (Auto) (0.0-0.7) K/uL Baso # (Auto) (0.0-0.2) K/uL Sodium (132-148) mmol/L Potassium (3.6-5.2) mmol/L Chloride (98-107) mmol/L Carbon Dioxide (22-30) mmol/L Anion Gap (10-20) BUN (9-20) mg/dL Creatinine (0.8-1.5) mg/dL Est GFR ( Amer) Est GFR (Non-Af Amer) POC Glucose (mg/dL) 87 97 129 H (65-110) mg/dL Random Glucose (75-110) mg/dL Calcium (8.6-10.4) mg/dl Phosphorus (2.5-4.5) mg/dL Magnesium (1.6-2.3) mg/dL Total Bilirubin (0.2-1.3) mg/dL AST (17-59) U/L ALT (21-72) U/L Alkaline Phosphatase (38-126) U/L Total Protein (6.3-8.3) g/dL Albumin (3.5-5.0) g/dL Globulin (2.2-3.9) gm/dL Albumin/Globulin Ratio (1.0-2.1) Laboratory Results - last 24 hr 12/15/17 12/15/17 12/15/17 11:50 17:43 23:17 WBC RBC Hgb Hct MCV MCH MCHC RDW Plt Count MPV Neut % (Auto) Lymph % (Auto) [place] % (Auto) Eos % (Auto) Baso % (Auto) Neut # (Auto) Lymph # (Auto) [place] # (Auto) Eos # (Auto) Baso # (Auto) Sodium Potassium Chloride Carbon Dioxide Anion Gap BUN Creatinine Est GFR ( Amer) Est GFR (Non-Af Amer) POC Glucose (mg/dL) 129 H 97 87 Random Glucose Calcium Phosphorus Magnesium Total Bilirubin AST ALT Alkaline Phosphatase Total Protein Albumin Globulin Albumin/Globulin Ratio 12/16/17 12/16/17 12/16/17 06:07 06:32 06:34 WBC 7.3 RBC 2.97 L Hgb 8.3 L Hct 24.7 L MCV 83.1 MCH 27.8 MCHC 33.5 RDW 16.7 H Plt Count 231 MPV 8.5 Neut % (Auto) 70.3 Lymph % (Auto) 18.6 L [place] % (Auto) 7.1 Eos % (Auto) 3.5 Baso % (Auto) 0.5 Neut # (Auto) 5.1 Lymph # (Auto) 1.4 [place] # (Auto) 0.5 Eos # (Auto) 0.3 Baso # (Auto) 0.0 Sodium 149 H Potassium 3.0 L Chloride 111 H Carbon Dioxide 28 Anion Gap 13 BUN 16 Creatinine 0.9 Est GFR ( Amer) > 60 Est GFR (Non-Af Amer) > 60 POC Glucose (mg/dL) 90 Random Glucose 95 Calcium 8.2 L Phosphorus 1.9 L Magnesium 2.0 Total Bilirubin 0.6 AST 33 ALT 76 H Alkaline Phosphatase 74 Total Protein 6.4 Albumin 3.0 L Globulin 3.4 Albumin/Globulin Ratio 0.9 L Fingerstick Blood Sugar Results: 90 Review of Systems - Review of Systems All systems: reviewed and no additional remarkable complaints except (as above) Critical Care Progress Note - Nutrition Nutrition: Nutrition Category Date Time Status Regular Diet [DIET] Diets 12/15/17 Breakfast Active Assessment/Plan - Assessment and Plan (Free Text) Assessment: Neuro: prior CVA with residual weakness ID: Septic shock, MRSA + sputum culture and blood culture (Infectious Disease Dr Becerril) continue vanco 1gm IV QD meropenem 1gm IV TID Will begin to titrate down Dopamine today and assess patient response Cardio: HTN (Cardiology Dr Carr) Will begin to titrate down Dopamine today and assess patient response midodrine 2.5mg PO TID Pulm: Asthma, COPD, hypoxia MRSA in Blood and sputum culture Extubated 12/13 Saturating well on nasal cannula 3L continue vanco 1gm IV QD meropenem 1gm IV TID CT angio was negative for PE GI: no acute problems Passed swallow eval yesterday Started regular diet Renal/Uro: hx of BPH continue flomax 0.4mg QD (Nephrology Dr Horton) VALORIE resolved Endo: no acute issues Electrolytes: hypernatremia resolved, hypokalemia kdur Skin: pressure ulcer Vitamin C zinc sulfate PPx: pepcid 20mg QD Heparin 5,000 units full code <Nigel Rushing M - Last Filed: 12/16/17 15:24> CCU Objective - Vital Signs / Intake & Output Vital Signs (Last 4 hours): Vital Signs Temp Pulse Resp BP Pulse Ox 12/16/17 14:35 70 20 115/59 L 97 12/16/17 14:05 67 21 106/58 L 97 12/16/17 14:00 66 20 97 12/16/17 13:34 62 19 122/56 L 96 12/16/17 13:05 65 17 121/56 L 96 12/16/17 13:00 65 19 97 12/16/17 12:34 64 17 97/64 L 97 12/16/17 12:02 64 19 105/54 L 99 12/16/17 12:00 98.6 F 69 21 140/63 100 12/16/17 11:50 62 20 105/51 L 99 12/16/17 11:29 67 19 89/47 L 97 Intake and Output (Last 8hrs): Intake & Output 12/16/17 12/16/17 12/16/17 06:59 14:59 22:59 Intake Total 1327.9 1342.5 Output Total 535 835 Balance 792.9 507.5 Weight 176 lb Intake: IV 188.7 207.5 Intake, IV Amount 939.2 1135.0 Left Medial Port Internal 139.2 135.0 Jugular Left Proximal Port 800 1000 Internal Jugular Oral 200 0 Output: Urine 535 835 Urethral (Sanders) 535 835 Other: # Bowel Movements 0 0 - Medications Active Medications: Active Medications Generic Name Dose Route Start Last Admin Trade Name Freq PRN Reason Stop Dose Admin Acetaminophen 650 mg 12/06/17 09:30 12/08/17 11:38 Tylenol 650mg/20.3ml Solution Ud PO 650 mg Q6 PRN Administration Temperature Ascorbic Acid 500 mg 12/05/17 10:00 12/16/17 09:24 Vitamin C 500 Mg Tab PO 500 mg DAILY [facility] Administration Famotidine 20 mg 12/15/17 16:00 12/16/17 09:25 Pepcid IVP 20 mg DAILY [facility] Administration Heparin Sodium (Porcine) 5,000 units 12/12/17 22:00 12/16/17 12:59 Heparin SC 5,000 units Q8 [facility] Administration Meropenem 500 mg/ Sodium 100 mls @ 100 mls/hr 12/06/17 14:00 12/16/17 13:00 Chloride IVPB 100 mls/hr Q8 [facility] Administration Dopamine HCl/Dextrose 400 mg in 250 mls @ 38.785 mls/hr 12/12/17 15:18 14:30 Dopamine 400mg/250ml D5w IV 2 mcg/kg/min .Q6H27M PRN 6.464 mls/hr TITRATE PER MD ORDER Titration Protocol 12 MCG/KG/MIN Vancomycin/Sodium Chloride 1 gm in 200 mls @ 133 mls/hr 12/14/17 18:00 17:52 Vancomycin 1 Gm/Ns 200 Ml IVPB 12/19/17 18:01 133 mls/hr Q24H [facility] Administration Sodium Chloride 1,000 mls @ 100 mls/hr 12/14/17 11:45 12/16/17 03:45 Sodium Chloride 0.9% IV Not Given .Q10H [facility] Insulin Aspart 0 unit 12/02/17 18:00 12/16/17 12:00 Novolog SC Not Given Q6H [facility] Protocol Midodrine 2.5 mg 12/13/17 10:00 12/16/17 12:59 Proamatine PO 2.5 mg TID [facility] Administration Multivitamins 1 tab 12/07/17 10:00 12/16/17 09:25 Hexavitamin PO 1 tab DAILY [facility] Administration Zinc Sulfate 220 mg 12/02/17 10:00 12/16/17 09:24 Zinc Sulfate 220 Mg Cap PO 220 mg DAILY [facility] Administration - Patient Studies Lab Studies: Lab Studies 12/16/17 12/16/17 12/16/17 Range/Units 11:36 06:34 06:32 WBC 7.3 (4.8-10.8) K/uL RBC 2.97 L (4.40-5.90) Mil/uL Hgb 8.3 L (12.0-18.0) g/dL Hct 24.7 L (35.0-51.0) % MCV 83.1 (80.0-94.0) fL MCH 27.8 (27.0-31.0) pg MCHC 33.5 (33.0-37.0) g/dL RDW 16.7 H (11.5-14.5) % Plt Count 231 (130-400) K/uL MPV 8.5 (7.2-11.7) fL Neut % (Auto) 70.3 (50.0-75.0) % Lymph % (Auto) 18.6 L (20.0-40.0) % [place] % (Auto) 7.1 (0.0-10.0) % Eos % (Auto) 3.5 (0.0-4.0) % Baso % (Auto) 0.5 (0.0-2.0) % Neut # (Auto) 5.1 (1.8-7.0) K/uL Lymph # (Auto) 1.4 (1.0-4.3) K/uL [place] # (Auto) 0.5 (0.0-0.8) K/uL Eos # (Auto) 0.3 (0.0-0.7) K/uL Baso # (Auto) 0.0 (0.0-0.2) K/uL Sodium 149 H (132-148) mmol/L Potassium 3.0 L (3.6-5.2) mmol/L Chloride 111 H (98-107) mmol/L Carbon Dioxide 28 (22-30) mmol/L Anion Gap 13 (10-20) BUN 16 (9-20) mg/dL Creatinine 0.9 (0.8-1.5) mg/dL Est GFR ( Amer) > 60 Est GFR (Non-Af Amer) > 60 POC Glucose (mg/dL) 114 H (65-110) mg/dL Random Glucose 95 (75-110) mg/dL Calcium 8.2 L (8.6-10.4) mg/dl Phosphorus 1.9 L (2.5-4.5) mg/dL Magnesium 2.0 (1.6-2.3) mg/dL Total Bilirubin 0.6 (0.2-1.3) mg/dL AST 33 (17-59) U/L ALT 76 H (21-72) U/L Alkaline Phosphatase 74 (38-126) U/L Total Protein 6.4 (6.3-8.3) g/dL Albumin 3.0 L (3.5-5.0) g/dL Globulin 3.4 (2.2-3.9) gm/dL Albumin/Globulin Ratio 0.9 L (1.0-2.1) 12/16/17 12/15/17 12/15/17 Range/Units 06:07 23:17 17:43 WBC (4.8-10.8) K/uL RBC (4.40-5.90) Mil/uL Hgb (12.0-18.0) g/dL Hct (35.0-51.0) % MCV (80.0-94.0) fL MCH (27.0-31.0) pg MCHC (33.0-37.0) g/dL RDW (11.5-14.5) % Plt Count (130-400) K/uL MPV (7.2-11.7) fL Neut % (Auto) (50.0-75.0) % Lymph % (Auto) (20.0-40.0) % [place] % (Auto) (0.0-10.0) % Eos % (Auto) (0.0-4.0) % Baso % (Auto) (0.0-2.0) % Neut # (Auto) (1.8-7.0) K/uL Lymph # (Auto) (1.0-4.3) K/uL [place] # (Auto) (0.0-0.8) K/uL Eos # (Auto) (0.0-0.7) K/uL Baso # (Auto) (0.0-0.2) K/uL Sodium (132-148) mmol/L Potassium (3.6-5.2) mmol/L Chloride (98-107) mmol/L Carbon Dioxide (22-30) mmol/L Anion Gap (10-20) BUN (9-20) mg/dL Creatinine (0.8-1.5) mg/dL Est GFR ( Amer) Est GFR (Non-Af Amer) POC Glucose (mg/dL) 90 87 97 (65-110) mg/dL Random Glucose (75-110) mg/dL Calcium (8.6-10.4) mg/dl Phosphorus (2.5-4.5) mg/dL Magnesium (1.6-2.3) mg/dL Total Bilirubin (0.2-1.3) mg/dL AST (17-59) U/L ALT (21-72) U/L Alkaline Phosphatase (38-126) U/L Total Protein (6.3-8.3) g/dL Albumin (3.5-5.0) g/dL Globulin (2.2-3.9) gm/dL Albumin/Globulin Ratio (1.0-2.1) Laboratory Results - last 24 hr 12/15/17 12/15/17 12/16/17 17:43 23:17 06:07 WBC RBC Hgb Hct MCV MCH MCHC RDW Plt Count MPV Neut % (Auto) Lymph % (Auto) [place] % (Auto) Eos % (Auto) Baso % (Auto) Neut # (Auto) Lymph # (Auto) [place] # (Auto) Eos # (Auto) Baso # (Auto) Sodium Potassium Chloride Carbon Dioxide Anion Gap BUN Creatinine Est GFR ( Amer) Est GFR (Non-Af Amer) POC Glucose (mg/dL) 97 87 90 Random Glucose Calcium Phosphorus Magnesium Total Bilirubin AST ALT Alkaline Phosphatase Total Protein Albumin Globulin Albumin/Globulin Ratio 12/16/17 12/16/17 12/16/17 06:32 06:34 11:36 WBC 7.3 RBC 2.97 L Hgb 8.3 L Hct 24.7 L MCV 83.1 MCH 27.8 MCHC 33.5 RDW 16.7 H Plt Count 231 MPV 8.5 Neut % (Auto) 70.3 Lymph % (Auto) 18.6 L [place] % (Auto) 7.1 Eos % (Auto) 3.5 Baso % (Auto) 0.5 Neut # (Auto) 5.1 Lymph # (Auto) 1.4 [place] # (Auto) 0.5 Eos # (Auto) 0.3 Baso # (Auto) 0.0 Sodium 149 H Potassium 3.0 L Chloride 111 H Carbon Dioxide 28 Anion Gap 13 BUN 16 Creatinine 0.9 Est GFR ( Amer) > 60 Est GFR (Non-Af Amer) > 60 POC Glucose (mg/dL) 114 H Random Glucose 95 Calcium 8.2 L Phosphorus 1.9 L Magnesium 2.0 Total Bilirubin 0.6 AST 33 ALT 76 H Alkaline Phosphatase 74 Total Protein 6.4 Albumin 3.0 L Globulin 3.4 Albumin/Globulin Ratio 0.9 L Critical Care Progress Note - Nutrition Nutrition: Nutrition Category Date Time Status NPO Diet [DIET] Diets 12/16/17 Dinner Active Attending/Attestation - Attestation I have personally seen and examined this patient.: Yes I have fully participated in the care of the patient.: Yes I have reviewed all pertinent clinical information: Yes Notes (Text): 12/16/17 15:24 Today: December The Patient was seen and examined at the bedside, Medical records reviewed, and management issues were discussed and formulated with the house staff. I have reviewed all the relevant clinical, laboratory, hemodynamic, radiographic data and medications Events reviewed Pain issues, skin care, head of the bed elevation, glycemic control were addressed. Agree with above resident's assessment and treatment plans of care as transcribed in Dr. Perez note.
[2017-12-16] MEDS: Vancomycin 1 gm/NS 200 ml 1 GM/200 ML BAG IVPB SCH (17:45)
[2017-12-17] MEDS: Meropenem 500 MG in Sodium Chloride 0.9% 100 ML IVPB SCH ×3 (05:41→23:00)
[2017-12-17] MEDS: (Novolog) Insulin Aspart, Recombinant 100 u/ml 10 ml vial SC SCH ×3 (05:42→18:00)
[2017-12-17 06:43] LABS: BASO % 0.5 % (0.0-2.0); EOS # 0.2 K/uL (0.0-0.7); EOS % 2.3 % (0.0-4.0); HEMOGLOBIN 7.7 g/dL (12.0-18.0); LYMPH # 1.1 K/uL (1.0-4.3); LYMPH % 14.2 % (20.0-40.0); MEAN CELL VOLUME 83.6 fL (80.0-94.0); MEAN CORPUSCULAR HEMOGLOBIN 28.6 pg (27.0-31.0); MEAN CORPUSCULAR HGB CONC 34.2 g/dL (33.0-37.0); MEAN PLATELET VOLUME 8.8 fL (7.2-11.7); MONO # 0.6 K/uL (0.0-0.8); MONO % 7.5 % (0.0-10.0); NEUT # 5.9 K/uL (1.8-7.0); NEUT % 75.5 % (50.0-75.0); NRBC % 0.2 % (0.0-2.0); RBC 2.69 Mil/uL (4.40-5.90); RED CELL DISTRIBUTION WIDTH 16.8 % (11.5-14.5); WHITE BLOOD COUNT 7.9 K/uL (4.8-10.8)
[2017-12-17 06:58] LABS: ALB/GLOB RATIO 0.9 (1.0-2.1); ALBUMIN 2.8 g/dL (3.5-5.0); ALT/SGPT 68 U/L (21-72); AST/SGOT 39 U/L (17-59); BLOOD UREA NITROGEN 14 mg/dL (9-20); CALCIUM 8.2 mg/dl (8.6-10.4); GFR AFRICAN-AMERICAN > 60; GFR NON-AFRICAN AMERICAN > 60
--- NOTE | 2017-12-17 09:05 | RAD ---
HISTORY: copd; pneumonia COMPARISON: Chest x-ray performed 12/13/17 TECHNIQUE: Chest, one view. FINDINGS: Images were obtained with the patient in oblique position. Numerous external wires and leads obscure evaluation of the underlying parenchyma. At least 2 external defibrillator pads. Left IJ approach central venous catheter extends the brachiocephalic vein, similar prior study. LUNGS: Prominent interstitial markings. Biapical pleural thickening. Left lower lobe and right middle lobe infiltrates. PLEURA: No significant pleural effusion identified. No definite pneumothorax . CARDIOVASCULAR: Enlargement of the cardiomediastinal silhouette. OSSEOUS STRUCTURES: Partially imaged cervical fusion hardware. VISUALIZED UPPER ABDOMEN: Unremarkable. OTHER FINDINGS: None. IMPRESSION: Support lines and tubes as above. Enlargement of the cardiomediastinal silhouette. Prominent tissue markings. Biapical pleural thickening. Left lower lobe and right middle lobe infiltrates.
[2017-12-17] MEDS: Multiple Vitamins Tab PO SCH (10:04)
[2017-12-17] MEDS ORDERED: Potassium Chloride 20 mEq/15 ml LIQ UD PO ONE (10:30)
--- NOTE | 2017-12-17 11:02 | PN ---
DATE: 12/16/2017. SUBJECTIVE: The patient is on ventilator. Supportive care and antibiotics weaning trial. Prognosis guarded. Adrianne Stanley MD
--- NOTE | 2017-12-17 12:26 | CP.CCUPN ---
<Viral Perez - Last Filed: 12/17/17 12:18> CCU Subjective - Physician Review Subjective (Free Text): Patient seen and examined at bedside - offers no complaints Extubated 3 days ago Patient was doing well on nasal cannula - attempted OOB to chair yesterday when patient suddenly desaturated and BP dropped (possible vasovagal?), BiPap was placed and patient responded well. Today saturating well on nasal cannula 3L Remains on dopamine for hypotension/bradycardia - today we will begin to titrate down Will remove sanders today and place [place] catheter CCU Objective - Vital Signs / Intake & Output Vital Signs (Last 4 hours): Vital Signs Temp Pulse Resp BP Pulse Ox 12/17/17 12:06 76 24 111/67 97 12/17/17 12:00 98.7 F 75 22 91 L 12/17/17 11:23 67 20 109/67 98 12/17/17 11:00 66 22 97 12/17/17 10:23 61 20 95/57 L 99 12/17/17 10:00 67 17 73 L 12/17/17 09:07 80 16 100/54 L 93 L 12/17/17 09:00 64 22 100 12/17/17 08:47 60 22 91/50 L 99 12/17/17 08:32 65 22 87/53 L 81 L 12/17/17 08:31 63 13 79/42 L 95 12/17/17 08:26 63 24 80/50 L Intake and Output (Last 8hrs): Intake & Output 12/16/17 12/17/17 12/17/17 22:59 06:59 14:59 Intake Total 739.5 0 0 Output Total 0 200 160 Balance 739.5 -200 -160 Weight 175 lb 11.2 oz Intake: IV 17.5 Intake, IV Amount 722 0 0 Left Medial Port Internal 22 0 0 Jugular Left Proximal Port 700 0 0 Internal Jugular Oral 0 Output: Urine 0 200 160 Condom 0 200 160 Urethral (Sanders) 0 Other: # Bowel Movements 0 0 0 - Physical Exam Head: Positive for: Atraumatic, Normocephalic Pupils: Positive for: PERRL Mouth: Positive for: Moist Mucous Membranes Respiratory/Chest: Positive for: Other (intubated) Abdomen: Positive for: Normal Bowel Sounds. Negative for: Tenderness, Distention, Peritoneal Signs Psychiatric: Positive for: Alert, Oriented x 3 - Medications Active Medications: Active Medications Generic Name Dose Route Start Last Admin Trade Name Freq PRN Reason Stop Dose Admin Acetaminophen 650 mg 12/06/17 09:30 12/08/17 11:38 Tylenol 650mg/20.3ml Solution Ud PO 650 mg Q6 PRN Administration Temperature Ascorbic Acid 500 mg 12/05/17 10:00 12/17/17 10:04 Vitamin C 500 Mg Tab PO 500 mg DAILY ABHIJEET Administration Famotidine 20 mg 12/15/17 16:00 12/17/17 10:04 Pepcid IVP 20 mg DAILY ABHIJEET Administration Heparin Sodium (Porcine) 5,000 units 12/12/17 22:00 12/17/17 05:41 Heparin SC 5,000 units Q8 ABHIJEET Administration Meropenem 500 mg/ Sodium 100 mls @ 100 mls/hr 12/06/17 14:00 12/17/17 05:41 Chloride IVPB 100 mls/hr Q8 ABHIJEET Administration Vancomycin/Sodium Chloride 1 gm in 200 mls @ 133 mls/hr 12/14/17 18:00 17:45 Vancomycin 1 Gm/Ns 200 Ml IVPB 12/19/17 18:01 133 mls/hr Q24H ABHIJEET Administration Potassium Chloride 20 meq in 100 mls @ 50 mls/hr 12/17/17 11:00 12/17/17 10: 36 Potassium Chloride 20 Meq/100 Ml IVPB 12/17/17 13:59 50 mls/hr Q2 ABHIJEET Administration Insulin Aspart 0 unit 12/02/17 18:00 12/17/17 05:42 Novolog SC Not Given Q6H [facility] Protocol Midodrine 5 mg 12/17/17 10:00 12/17/17 10:04 Proamatine PO 5 mg TID ABHIJEET Administration Multivitamins 1 tab 12/07/17 10:00 12/17/17 10:04 Hexavitamin PO 1 tab DAILY ABHIJEET Administration - Patient Studies Lab Studies: Lab Studies 12/17/17 12/17/17 12/17/17 Range/Units 11:56 09:40 06:32 WBC 7.9 (4.8-10.8) K/uL RBC 2.69 L (4.40-5.90) Mil/uL Hgb 7.7 L (12.0-18.0) g/dL Hct 22.5 L (35.0-51.0) % MCV 83.6 (80.0-94.0) fL MCH 28.6 (27.0-31.0) pg MCHC 34.2 (33.0-37.0) g/dL RDW 16.8 H (11.5-14.5) % Plt Count 232 (130-400) K/uL MPV 8.8 (7.2-11.7) fL Neut % (Auto) 75.5 H (50.0-75.0) % Lymph % (Auto) 14.2 L (20.0-40.0) % [place] % (Auto) 7.5 (0.0-10.0) % Eos % (Auto) 2.3 (0.0-4.0) % Baso % (Auto) 0.5 (0.0-2.0) % Neut # (Auto) 5.9 (1.8-7.0) K/uL Lymph # (Auto) 1.1 (1.0-4.3) K/uL [place] # (Auto) 0.6 (0.0-0.8) K/uL Eos # (Auto) 0.2 (0.0-0.7) K/uL Baso # (Auto) 0.0 (0.0-0.2) K/uL Sodium (132-148) mmol/L Potassium (3.6-5.2) mmol/L Chloride (98-107) mmol/L Carbon Dioxide (22-30) mmol/L Anion Gap (10-20) BUN (9-20) mg/dL Creatinine (0.8-1.5) mg/dL Est GFR ( Amer) Est GFR (Non-Af Amer) POC Glucose (mg/dL) 129 H (65-110) mg/dL Random Glucose (75-110) mg/dL Calcium (8.6-10.4) mg/dl Phosphorus (2.5-4.5) mg/dL Magnesium (1.6-2.3) mg/dL Total Bilirubin (0.2-1.3) mg/dL AST (17-59) U/L ALT (21-72) U/L Alkaline Phosphatase (38-126) U/L Total Protein (6.3-8.3) g/dL Albumin (3.5-5.0) g/dL Globulin (2.2-3.9) gm/dL Albumin/Globulin Ratio (1.0-2.1) Vancomycin Trough 20.8 H (5.0-10.0) ug/mL 12/17/17 12/17/17 12/17/17 Range/Units 06:30 05:47 05:23 WBC (4.8-10.8) K/uL RBC (4.40-5.90) Mil/uL Hgb (12.0-18.0) g/dL Hct (35.0-51.0) % MCV (80.0-94.0) fL MCH (27.0-31.0) pg MCHC (33.0-37.0) g/dL RDW (11.5-14.5) % Plt Count (130-400) K/uL MPV (7.2-11.7) fL Neut % (Auto) (50.0-75.0) % Lymph % (Auto) (20.0-40.0) % [place] % (Auto) (0.0-10.0) % Eos % (Auto) (0.0-4.0) % Baso % (Auto) (0.0-2.0) % Neut # (Auto) (1.8-7.0) K/uL Lymph # (Auto) (1.0-4.3) K/uL [place] # (Auto) (0.0-0.8) K/uL Eos # (Auto) (0.0-0.7) K/uL Baso # (Auto) (0.0-0.2) K/uL Sodium 150 H (132-148) mmol/L Potassium 3.2 L (3.6-5.2) mmol/L Chloride 114 H (98-107) mmol/L Carbon Dioxide 26 (22-30) mmol/L Anion Gap 13 (10-20) BUN 14 (9-20) mg/dL Creatinine 1.0 (0.8-1.5) mg/dL Est GFR ( Amer) > 60 Est GFR (Non-Af Amer) > 60 POC Glucose (mg/dL) 104 383 H (65-110) mg/dL Random Glucose 94 (75-110) mg/dL Calcium 8.2 L (8.6-10.4) mg/dl Phosphorus 1.7 L (2.5-4.5) mg/dL Magnesium 2.0 (1.6-2.3) mg/dL Total Bilirubin 0.5 (0.2-1.3) mg/dL AST 39 (17-59) U/L ALT 68 (21-72) U/L Alkaline Phosphatase 66 (38-126) U/L Total Protein 6.0 L (6.3-8.3) g/dL Albumin 2.8 L (3.5-5.0) g/dL Globulin 3.2 (2.2-3.9) gm/dL Albumin/Globulin Ratio 0.9 L (1.0-2.1) Vancomycin Trough (5.0-10.0) ug/mL 12/16/17 12/16/17 Range/Units 23:50 17:51 WBC (4.8-10.8) K/uL RBC (4.40-5.90) Mil/uL Hgb (12.0-18.0) g/dL Hct (35.0-51.0) % MCV (80.0-94.0) fL MCH (27.0-31.0) pg MCHC (33.0-37.0) g/dL RDW (11.5-14.5) % Plt Count (130-400) K/uL MPV (7.2-11.7) fL Neut % (Auto) (50.0-75.0) % Lymph % (Auto) (20.0-40.0) % [place] % (Auto) (0.0-10.0) % Eos % (Auto) (0.0-4.0) % Baso % (Auto) (0.0-2.0) % Neut # (Auto) (1.8-7.0) K/uL Lymph # (Auto) (1.0-4.3) K/uL [place] # (Auto) (0.0-0.8) K/uL Eos # (Auto) (0.0-0.7) K/uL Baso # (Auto) (0.0-0.2) K/uL Sodium (132-148) mmol/L Potassium (3.6-5.2) mmol/L Chloride (98-107) mmol/L Carbon Dioxide (22-30) mmol/L Anion Gap (10-20) BUN (9-20) mg/dL Creatinine (0.8-1.5) mg/dL Est GFR ( Amer) Est GFR (Non-Af Amer) POC Glucose (mg/dL) 75 94 (65-110) mg/dL Random Glucose (75-110) mg/dL Calcium (8.6-10.4) mg/dl Phosphorus (2.5-4.5) mg/dL Magnesium (1.6-2.3) mg/dL Total Bilirubin (0.2-1.3) mg/dL AST (17-59) U/L ALT (21-72) U/L Alkaline Phosphatase (38-126) U/L Total Protein (6.3-8.3) g/dL Albumin (3.5-5.0) g/dL Globulin (2.2-3.9) gm/dL Albumin/Globulin Ratio (1.0-2.1) Vancomycin Trough (5.0-10.0) ug/mL Laboratory Results - last 24 hr 12/16/17 12/16/17 12/17/17 17:51 23:50 05:23 WBC RBC Hgb Hct MCV MCH MCHC RDW Plt Count MPV Neut % (Auto) Lymph % (Auto) [place] % (Auto) Eos % (Auto) Baso % (Auto) Neut # (Auto) Lymph # (Auto) [place] # (Auto) Eos # (Auto) Baso # (Auto) Sodium Potassium Chloride Carbon Dioxide Anion Gap BUN Creatinine Est GFR ( Amer) Est GFR (Non-Af Amer) POC Glucose (mg/dL) 94 75 383 H Random Glucose Calcium Phosphorus Magnesium Total Bilirubin AST ALT Alkaline Phosphatase Total Protein Albumin Globulin Albumin/Globulin Ratio Vancomycin Trough 12/17/17 12/17/17 12/17/17 05:47 06:30 06:32 WBC 7.9 RBC 2.69 L Hgb 7.7 L Hct 22.5 L MCV 83.6 MCH 28.6 MCHC 34.2 RDW 16.8 H Plt Count 232 MPV 8.8 Neut % (Auto) 75.5 H Lymph % (Auto) 14.2 L [place] % (Auto) 7.5 Eos % (Auto) 2.3 Baso % (Auto) 0.5 Neut # (Auto) 5.9 Lymph # (Auto) 1.1 [place] # (Auto) 0.6 Eos # (Auto) 0.2 Baso # (Auto) 0.0 Sodium 150 H Potassium 3.2 L Chloride 114 H Carbon Dioxide 26 Anion Gap 13 BUN 14 Creatinine 1.0 Est GFR ( Amer) > 60 Est GFR (Non-Af Amer) > 60 POC Glucose (mg/dL) 104 Random Glucose 94 Calcium 8.2 L Phosphorus 1.7 L Magnesium 2.0 Total Bilirubin 0.5 AST 39 ALT 68 Alkaline Phosphatase 66 Total Protein 6.0 L Albumin 2.8 L Globulin 3.2 Albumin/Globulin Ratio 0.9 L Vancomycin Trough 12/17/17 12/17/17 09:40 11:56 WBC RBC Hgb Hct MCV MCH MCHC RDW Plt Count MPV Neut % (Auto) Lymph % (Auto) [place] % (Auto) Eos % (Auto) Baso % (Auto) Neut # (Auto) Lymph # (Auto) [place] # (Auto) Eos # (Auto) Baso # (Auto) Sodium Potassium Chloride Carbon Dioxide Anion Gap BUN Creatinine Est GFR ( Amer) Est GFR (Non-Af Amer) POC Glucose (mg/dL) 129 H Random Glucose Calcium Phosphorus Magnesium Total Bilirubin AST ALT Alkaline Phosphatase Total Protein Albumin Globulin Albumin/Globulin Ratio Vancomycin Trough 20.8 H Fingerstick Blood Sugar Results: 94 Critical Care Progress Note - Nutrition Nutrition: Nutrition Category Date Time Status Heart Healthy Diet [DIET] Diets 12/17/17 Lunch Active Assessment/Plan - Assessment and Plan (Free Text) Assessment: 72 year old M who presented with septic shock secondary to MRSA in blood: Neuro: prior CVA with residual weakness ID: Septic shock, MRSA + sputum culture and blood culture (Infectious Disease Dr Becerril) continue vanco 1gm IV QD * F/U vanco trough meropenem 1gm IV TID Patient off Dopamine now Cardio: HTN (Cardiology Dr Carr) Patient off Dopamine now Increased midodrine to 5mg PO TID Pulm: Asthma, COPD, hypoxia MRSA in Blood and sputum culture Extubated 12/13 Saturating well on nasal cannula 3L continue vanco 1gm IV QD meropenem 1gm IV TID CT angio was negative for PE GI: no acute problems Passed swallow eval today Started regular diet Renal/Uro: hx of BPH continue flomax 0.4mg QD (Nephrology Dr Horton) VALORIE resolved Endo: elevated sugars accuchecks q6 covered with insulin aspart q6 Electrolytes: hypernatremia resolved, hypokalemia k-riders Skin: pressure ulcer Vitamin C zinc sulfate PPx: pepcid 20mg QD Heparin 5,000 units full code <Vladislav Nunez M - Last Filed: 12/17/17 16:02> CCU Objective - Vital Signs / Intake & Output Vital Signs (Last 4 hours): Vital Signs Temp Pulse Resp BP Pulse Ox 12/17/17 12:06 76 24 111/67 97 12/17/17 12:00 98.7 F 75 22 91 L Intake and Output (Last 8hrs): Intake & Output 12/17/17 12/17/17 12/17/17 06:59 14:59 22:59 Intake Total 0 0 Output Total 200 160 Balance -200 -160 Weight 175 lb 11.2 oz Intake: Intake, IV Amount 0 0 Left Medial Port Internal 0 0 Jugular Left Proximal Port 0 0 Internal Jugular Oral 0 Output: Urine 200 160 Condom 200 160 Other: # Bowel Movements 0 0 - Medications Active Medications: Active Medications Generic Name Dose Route Start Last Admin Trade Name Freq PRN Reason Stop Dose Admin Acetaminophen 650 mg 12/06/17 09:30 12/08/17 11:38 Tylenol 650mg/20.3ml Solution Ud PO 650 mg Q6 PRN Administration Temperature Ascorbic Acid 500 mg 12/05/17 10:00 12/17/17 10:04 Vitamin C 500 Mg Tab PO 500 mg DAILY ABHIJEET Administration Famotidine 20 mg 12/15/17 16:00 12/17/17 10:04 Pepcid IVP 20 mg DAILY ABHIJEET Administration Haloperidol Lactate 0.5 mg 12/17/17 15:18 Haldol IVP PRN PRN Psychosis Heparin Sodium (Porcine) 5,000 units 12/12/17 22:00 12/17/17 13:03 Heparin SC 5,000 units Q8 ABHIJEET Administration Meropenem 500 mg/ Sodium 100 mls @ 100 mls/hr 12/06/17 14:00 12/17/17 05:41 Chloride IVPB 100 mls/hr Q8 ABHIJEET Administration Vancomycin/Sodium Chloride 1 gm in 200 mls @ 133 mls/hr 12/14/17 18:00 17:45 Vancomycin 1 Gm/Ns 200 Ml IVPB 12/19/17 18:01 133 mls/hr Q24H ABHIJEET Administration Potassium Phosphate 15 mmole/ 255 mls @ 42.5 mls/hr 12/17/17 15:45 Dextrose IVPB 12/17/17 21:44 ONCE ONE Insulin Aspart 0 unit 12/02/17 18:00 12/17/17 12:00 Novolog SC Not Given Q6H [facility] Protocol Midodrine 5 mg 12/17/17 10:00 12/17/17 13:03 Proamatine PO 5 mg TID ABHIJEET Administration Multivitamins 1 tab 12/07/17 10:00 12/17/17 10:04 Hexavitamin PO 1 tab DAILY ABHIJEET Administration Potassium Chloride 40 meq 12/17/17 15:45 Potassium Chloride Oral Soln PO 12/18/17 03:46 Q6H ABHIJEET - Patient Studies Lab Studies: Lab Studies 12/17/17 12/17/17 12/17/17 Range/Units 11:56 09:40 06:32 WBC 7.9 (4.8-10.8) K/uL RBC 2.69 L (4.40-5.90) Mil/uL Hgb 7.7 L (12.0-18.0) g/dL Hct 22.5 L (35.0-51.0) % MCV 83.6 (80.0-94.0) fL MCH 28.6 (27.0-31.0) pg MCHC 34.2 (33.0-37.0) g/dL RDW 16.8 H (11.5-14.5) % Plt Count 232 (130-400) K/uL MPV 8.8 (7.2-11.7) fL Neut % (Auto) 75.5 H (50.0-75.0) % Lymph % (Auto) 14.2 L (20.0-40.0) % [place] % (Auto) 7.5 (0.0-10.0) % Eos % (Auto) 2.3 (0.0-4.0) % Baso % (Auto) 0.5 (0.0-2.0) % Neut # (Auto) 5.9 (1.8-7.0) K/uL Lymph # (Auto) 1.1 (1.0-4.3) K/uL [place] # (Auto) 0.6 (0.0-0.8) K/uL Eos # (Auto) 0.2 (0.0-0.7) K/uL Baso # (Auto) 0.0 (0.0-0.2) K/uL Sodium (132-148) mmol/L Potassium (3.6-5.2) mmol/L Chloride (98-107) mmol/L Carbon Dioxide (22-30) mmol/L Anion Gap (10-20) BUN (9-20) mg/dL Creatinine (0.8-1.5) mg/dL Est GFR ( Amer) Est GFR (Non-Af Amer) POC Glucose (mg/dL) 129 H (65-110) mg/dL Random Glucose (75-110) mg/dL Calcium (8.6-10.4) mg/dl Phosphorus (2.5-4.5) mg/dL Magnesium (1.6-2.3) mg/dL Total Bilirubin (0.2-1.3) mg/dL AST (17-59) U/L ALT (21-72) U/L Alkaline Phosphatase (38-126) U/L Total Protein (6.3-8.3) g/dL Albumin (3.5-5.0) g/dL Globulin (2.2-3.9) gm/dL Albumin/Globulin Ratio (1.0-2.1) Vancomycin Trough 20.8 H (5.0-10.0) ug/mL 12/17/17 12/17/17 12/17/17 Range/Units 06:30 05:47 05:23 WBC (4.8-10.8) K/uL RBC (4.40-5.90) Mil/uL Hgb (12.0-18.0) g/dL Hct (35.0-51.0) % MCV (80.0-94.0) fL MCH (27.0-31.0) pg MCHC (33.0-37.0) g/dL RDW (11.5-14.5) % Plt Count (130-400) K/uL MPV (7.2-11.7) fL Neut % (Auto) (50.0-75.0) % Lymph % (Auto) (20.0-40.0) % [place] % (Auto) (0.0-10.0) % Eos % (Auto) (0.0-4.0) % Baso % (Auto) (0.0-2.0) % Neut # (Auto) (1.8-7.0) K/uL Lymph # (Auto) (1.0-4.3) K/uL [place] # (Auto) (0.0-0.8) K/uL Eos # (Auto) (0.0-0.7) K/uL Baso # (Auto) (0.0-0.2) K/uL Sodium 150 H (132-148) mmol/L Potassium 3.2 L (3.6-5.2) mmol/L Chloride 114 H (98-107) mmol/L Carbon Dioxide 26 (22-30) mmol/L Anion Gap 13 (10-20) BUN 14 (9-20) mg/dL Creatinine 1.0 (0.8-1.5) mg/dL Est GFR ( Amer) > 60 Est GFR (Non-Af Amer) > 60 POC Glucose (mg/dL) 104 383 H (65-110) mg/dL Random Glucose 94 (75-110) mg/dL Calcium 8.2 L (8.6-10.4) mg/dl Phosphorus 1.7 L (2.5-4.5) mg/dL Magnesium 2.0 (1.6-2.3) mg/dL Total Bilirubin 0.5 (0.2-1.3) mg/dL AST 39 (17-59) U/L ALT 68 (21-72) U/L Alkaline Phosphatase 66 (38-126) U/L Total Protein 6.0 L (6.3-8.3) g/dL Albumin 2.8 L (3.5-5.0) g/dL Globulin 3.2 (2.2-3.9) gm/dL Albumin/Globulin Ratio 0.9 L (1.0-2.1) Vancomycin Trough (5.0-10.0) ug/mL 12/16/17 12/16/17 Range/Units 23:50 17:51 WBC (4.8-10.8) K/uL RBC (4.40-5.90) Mil/uL Hgb (12.0-18.0) g/dL Hct (35.0-51.0) % MCV (80.0-94.0) fL MCH (27.0-31.0) pg MCHC (33.0-37.0) g/dL RDW (11.5-14.5) % Plt Count (130-400) K/uL MPV (7.2-11.7) fL Neut % (Auto) (50.0-75.0) % Lymph % (Auto) (20.0-40.0) % [place] % (Auto) (0.0-10.0) % Eos % (Auto) (0.0-4.0) % Baso % (Auto) (0.0-2.0) % Neut # (Auto) (1.8-7.0) K/uL Lymph # (Auto) (1.0-4.3) K/uL [place] # (Auto) (0.0-0.8) K/uL Eos # (Auto) (0.0-0.7) K/uL Baso # (Auto) (0.0-0.2) K/uL Sodium (132-148) mmol/L Potassium (3.6-5.2) mmol/L Chloride (98-107) mmol/L Carbon Dioxide (22-30) mmol/L Anion Gap (10-20) BUN (9-20) mg/dL Creatinine (0.8-1.5) mg/dL Est GFR ( Amer) Est GFR (Non-Af Amer) POC Glucose (mg/dL) 75 94 (65-110) mg/dL Random Glucose (75-110) mg/dL Calcium (8.6-10.4) mg/dl Phosphorus (2.5-4.5) mg/dL Magnesium (1.6-2.3) mg/dL Total Bilirubin (0.2-1.3) mg/dL AST (17-59) U/L ALT (21-72) U/L Alkaline Phosphatase (38-126) U/L Total Protein (6.3-8.3) g/dL Albumin (3.5-5.0) g/dL Globulin (2.2-3.9) gm/dL Albumin/Globulin Ratio (1.0-2.1) Vancomycin Trough (5.0-10.0) ug/mL Laboratory Results - last 24 hr 12/16/17 12/16/17 12/17/17 17:51 23:50 05:23 WBC RBC Hgb Hct MCV MCH MCHC RDW Plt Count MPV Neut % (Auto) Lymph % (Auto) [place] % (Auto) Eos % (Auto) Baso % (Auto) Neut # (Auto) Lymph # (Auto) [place] # (Auto) Eos # (Auto) Baso # (Auto) Sodium Potassium Chloride Carbon Dioxide Anion Gap BUN Creatinine Est GFR ( Amer) Est GFR (Non-Af Amer) POC Glucose (mg/dL) 94 75 383 H Random Glucose Calcium Phosphorus Magnesium Total Bilirubin AST ALT Alkaline Phosphatase Total Protein Albumin Globulin Albumin/Globulin Ratio Vancomycin Trough 12/17/17 12/17/17 12/17/17 05:47 06:30 06:32 WBC 7.9 RBC 2.69 L Hgb 7.7 L Hct 22.5 L MCV 83.6 MCH 28.6 MCHC 34.2 RDW 16.8 H Plt Count 232 MPV 8.8 Neut % (Auto) 75.5 H Lymph % (Auto) 14.2 L [place] % (Auto) 7.5 Eos % (Auto) 2.3 Baso % (Auto) 0.5 Neut # (Auto) 5.9 Lymph # (Auto) 1.1 [place] # (Auto) 0.6 Eos # (Auto) 0.2 Baso # (Auto) 0.0 Sodium 150 H Potassium 3.2 L Chloride 114 H Carbon Dioxide 26 Anion Gap 13 BUN 14 Creatinine 1.0 Est GFR ( Amer) > 60 Est GFR (Non-Af Amer) > 60 POC Glucose (mg/dL) 104 Random Glucose 94 Calcium 8.2 L Phosphorus 1.7 L Magnesium 2.0 Total Bilirubin 0.5 AST 39 ALT 68 Alkaline Phosphatase 66 Total Protein 6.0 L Albumin 2.8 L Globulin 3.2 Albumin/Globulin Ratio 0.9 L Vancomycin Trough 12/17/17 12/17/17 09:40 11:56 WBC RBC Hgb Hct MCV MCH MCHC RDW Plt Count MPV Neut % (Auto) Lymph % (Auto) [place] % (Auto) Eos % (Auto) Baso % (Auto) Neut # (Auto) Lymph # (Auto) [place] # (Auto) Eos # (Auto) Baso # (Auto) Sodium Potassium Chloride Carbon Dioxide Anion Gap BUN Creatinine Est GFR ( Amer) Est GFR (Non-Af Amer) POC Glucose (mg/dL) 129 H Random Glucose Calcium Phosphorus Magnesium Total Bilirubin AST ALT Alkaline Phosphatase Total Protein Albumin Globulin Albumin/Globulin Ratio Vancomycin Trough 20.8 H Critical Care Progress Note - Nutrition Nutrition: Nutrition Category Date Time Status Heart Healthy Diet [DIET] Diets 12/17/17 Lunch Active Assessment/Plan - Assessment and Plan (Free Text) Assessment: Patient seen and examined at bedside with above resident. Above resident note documents my management. --MRSA; infection/PNA/bacteremia: contnue vanco per level -tolerated extubation -avoid fluid overload -avoid sedation -at times patient has visual hallucination: HAldol PRN -check and replace all electrolytes -PT/OT Patient remains hemodynamically stable. - Date & Time Date: 12/17/17 Time: 09:00
[2017-12-17] MEDS ORDERED: Potassium Chloride 20 mEq/15 ml LIQ UD PO SCH (15:45)
[2017-12-17] MEDS ORDERED: Potassium Phosphate 15 MMOLE in Dextrose 5% In Water 250 ML IVPB ONE (15:45)
[2017-12-17] MEDS: Vancomycin 1 gm/NS 200 ml 1 GM/200 ML BAG IVPB SCH (17:29)
[2017-12-18] MEDS: (Novolog) Insulin Aspart, Recombinant 100 u/ml 10 ml vial SC SCH ×4 (00:19→18:00)
[2017-12-18] MEDS: Meropenem 500 MG in Sodium Chloride 0.9% 100 ML IVPB SCH ×3 (06:01→21:19)
[2017-12-18 06:30] LABS: BASO % 0.5 % (0.0-2.0); EOS # 0.2 K/uL (0.0-0.7); EOS % 2.5 % (0.0-4.0); HEMOGLOBIN 7.8 g/dL (12.0-18.0); LYMPH # 1.5 K/uL (1.0-4.3); LYMPH % 20.2 % (20.0-40.0); MEAN CELL VOLUME 85.1 fL (80.0-94.0); MEAN CORPUSCULAR HEMOGLOBIN 28.7 pg (27.0-31.0); MEAN CORPUSCULAR HGB CONC 33.8 g/dL (33.0-37.0); MEAN PLATELET VOLUME 8.5 fL (7.2-11.7); MONO # 0.7 K/uL (0.0-0.8); MONO % 9.3 % (0.0-10.0); NEUT # 4.9 K/uL (1.8-7.0); NEUT % 67.5 % (50.0-75.0); NRBC % 0.1 % (0.0-2.0); RBC 2.72 Mil/uL (4.40-5.90); RED CELL DISTRIBUTION WIDTH 17.2 % (11.5-14.5); WHITE BLOOD COUNT 7.3 K/uL (4.8-10.8)
[2017-12-18 07:13] LABS: ALB/GLOB RATIO 0.9 (1.0-2.1); ALBUMIN 2.7 g/dL (3.5-5.0); ALT/SGPT 79 U/L (21-72); AST/SGOT 51 U/L (17-59); BLOOD UREA NITROGEN 15 mg/dL (9-20); CALCIUM 8.3 mg/dl (8.6-10.4); GFR AFRICAN-AMERICAN > 60; GFR NON-AFRICAN AMERICAN > 60; MAGNESIUM 2.1 mg/dL (1.6-2.3)
[2017-12-18] MEDS ORDERED: Albumin Human 25% (12.5 gm/50 ml) IV ONE (08:34)
[2017-12-18] MEDS: Albumin Human 25% (12.5 gm/50 ml) IV SCH ×2 (09:30→11:14)
[2017-12-18] MEDS: Multiple Vitamins Tab PO SCH (09:49)
--- NOTE | 2017-12-18 15:58 | RAD ---
HISTORY: copd COMPARISON: Comparison is made with 12/17/2017 FINDINGS: LUNGS: No significant interval change in the lungs noted since the previous exam. Left hilar and perihilar opacity is again noted. PLEURA: Blunting of both costophrenic angles again noted. CARDIOVASCULAR: Normal. OSSEOUS STRUCTURES: No significant abnormalities. VISUALIZED UPPER ABDOMEN: Normal. OTHER FINDINGS: Left central jugular line is seen in place. IMPRESSION: No significant interval change in the lungs noted since the previous exam.
[2017-12-18] MEDS: Vancomycin 1 gm/NS 200 ml 1 GM/200 ML BAG IVPB SCH (18:02)
[2017-12-19] MEDS: Meropenem 500 MG in Sodium Chloride 0.9% 100 ML IVPB SCH (05:06)
[2017-12-19] MEDS: (Novolog) Insulin Aspart, Recombinant 100 u/ml 10 ml vial SC SCH ×4 (06:19→18:00)
[2017-12-19 06:26] LABS: BASO # 0.1 K/uL (0.0-0.2); BASO % 0.8 % (0.0-2.0); EOS # 0.3 K/uL (0.0-0.7); EOS % 4.5 % (0.0-4.0); HEMOGLOBIN 7.6 g/dL (12.0-18.0); LYMPH # 1.4 K/uL (1.0-4.3); MEAN CELL VOLUME 85.6 fL (80.0-94.0); MEAN CORPUSCULAR HEMOGLOBIN 28.3 pg (27.0-31.0); MEAN CORPUSCULAR HGB CONC 33.1 g/dL (33.0-37.0); MEAN PLATELET VOLUME 8.4 fL (7.2-11.7); MONO # 0.7 K/uL (0.0-0.8); MONO % 10.4 % (0.0-10.0); NEUT # 4.5 K/uL (1.8-7.0); NEUT % 64.3 % (50.0-75.0); NRBC % 0.2 % (0.0-2.0); RBC 2.67 Mil/uL (4.40-5.90); RED CELL DISTRIBUTION WIDTH 17.8 % (11.5-14.5)
[2017-12-19 06:47] LABS: ALBUMIN 2.7 g/dL (3.5-5.0); ALT/SGPT 75 U/L (21-72); AST/SGOT 44 U/L (17-59); BLOOD UREA NITROGEN 13 mg/dL (9-20); GFR AFRICAN-AMERICAN > 60; GFR NON-AFRICAN AMERICAN > 60
[2017-12-19] MEDS: Multiple Vitamins Tab PO SCH (09:29)
--- NOTE | 2017-12-19 09:37 | CP.PCM.PN ---
Subjective - Date & Time of Evaluation Date of Evaluation: 12/17/17 Time of Evaluation: 09:00 - Subjective Subjective: Patient admitted to ICU for sepsis, dx with MRSA bactereima tolerating vanco, off pressors, BP stable, (+)visual hallucinations improving Objective - Vital Signs/Intake and Output Vital Signs (last 24 hours): Temp Pulse Resp BP Pulse Ox 98 F 60 16 91/59 L 97 12/19/17 07:08 12/19/17 07:00 12/19/17 07:00 12/19/17 06:28 12/19/17 07:00 Intake and Output: 12/19/17 12/19/17 06:59 18:59 Intake Total 470 Output Total 500 Balance -30 - Medications Medications: Current Medications Acetaminophen (Tylenol 650mg/20.3ml Solution Ud) 650 mg PO Q6 PRN PRN Reason: Temperature Last Admin: 12/08/17 11:38 Dose: 650 mg Ascorbic Acid (Vitamin C 500 Mg Tab) 500 mg PO DAILY [facility] Last Admin: 12/19/17 09:29 Dose: 500 mg Famotidine (Pepcid) 20 mg IVP DAILY [facility] Last Admin: 12/19/17 09:29 Dose: 20 mg Haloperidol Lactate (Haldol) 0.5 mg IVP DAILY PRN PRN Reason: Psychosis Heparin Sodium (Porcine) (Heparin) 5,000 units SC Q8 [facility] Last Admin: 12/19/17 05:07 Dose: Not Given Vancomycin/Sodium Chloride (Vancomycin 1 Gm/Ns 200 Ml) 1 gm in 200 mls @ 133 mls/hr IVPB Q24H [facility] Stop: 12/19/17 18:01 Last Admin: 12/18/17 18:02 Dose: 133 mls/hr Insulin Aspart (Novolog) 0 unit SC Q6H ABHIJEET PRN Reason: Protocol Last Admin: 12/19/17 06:19 Dose: Not Given Midodrine (Proamatine) 5 mg PO TID [facility] Last Admin: 12/18/17 18:01 Dose: 5 mg Multivitamins (Hexavitamin) 1 tab PO DAILY [facility] Last Admin: 12/19/17 09:29 Dose: 1 tab - Labs Labs: 12/19/17 06:21 12/19/17 06:21 PT 13.5 SECONDS (9.7-12.2) H 12/13/17 06:38 INR 1.2 12/13/17 06:38 APTT 31 SECONDS (21-34) 11/26/17 17:31 - Constitutional Appears: Well, Non-toxic - Head Exam Head Exam: ATRAUMATIC, NORMAL INSPECTION - ENT Exam ENT Exam: Mucous Membranes Moist - Respiratory Exam Respiratory Exam: Clear to Ausculation Bilateral, NORMAL BREATHING PATTERN - Cardiovascular Exam Cardiovascular Exam: REGULAR RHYTHM, +S1, +S2, +S4, Murmur - GI/Abdominal Exam GI & Abdominal Exam: Soft, Normal Bowel Sounds - Extremities Exam Extremities Exam: Normal Capillary Refill Assessment and Plan - Assessment and Plan (Free Text) Plan: 72 year old M who presented with septic shock secondary to MRSA in blood: -Neuro: prior CVA with residual weakness, able to speak and eat oral diet ID: MRSA sepsis continue vanco 1gm IV QD * F/U vanco trough meropenem 1gm IV TID Patient off Dopamine now - HTN: keep MAP >65, continue midodrine h/o COPD: continue oxygen supplementation to keep Spo2 >92 and continue bronchodilators -GI: no acute problems -monitor urine output accuchecks q6 covered with insulin aspart q6 Skin: pressure ulcer Vitamin C zinc sulfate PPx: pepcid 20mg QD Heparin 5,000 units full code Patient remains hemodynamically stable pt/ot
[2017-12-19] MEDS: Vancomycin 1 gm/NS 200 ml 1 GM/200 ML BAG IVPB SCH (18:29)
[2017-12-20] MEDS: (Novolog) Insulin Aspart, Recombinant 100 u/ml 10 ml vial SC SCH ×5 (00:22→23:59)
[2017-12-20 06:30] LABS: BASO % 0.5 % (0.0-2.0); EOS # 0.4 K/uL (0.0-0.7); EOS % 4.9 % (0.0-4.0); HEMOGLOBIN 8.1 g/dL (12.0-18.0); LYMPH # 1.6 K/uL (1.0-4.3); LYMPH % 22.2 % (20.0-40.0); MEAN CORPUSCULAR HGB CONC 34.1 g/dL (33.0-37.0); MEAN PLATELET VOLUME 8.4 fL (7.2-11.7); MONO # 0.9 K/uL (0.0-0.8); MONO % 12.4 % (0.0-10.0); NEUT # 4.3 K/uL (1.8-7.0); NRBC % 0.5 % (0.0-2.0); RBC 2.78 Mil/uL (4.40-5.90); RED CELL DISTRIBUTION WIDTH 17.9 % (11.5-14.5); WHITE BLOOD COUNT 7.1 K/uL (4.8-10.8)
[2017-12-20 06:44] LABS: ALB/GLOB RATIO 1.1 (1.0-2.1); ALBUMIN 2.8 g/dL (3.5-5.0); ALT/SGPT 66 U/L (21-72); AST/SGOT 29 U/L (17-59); BLOOD UREA NITROGEN 11 mg/dL (9-20); CALCIUM 8.3 mg/dl (8.6-10.4); GFR AFRICAN-AMERICAN > 60; GFR NON-AFRICAN AMERICAN > 60
--- NOTE | 2017-12-20 08:49 | PN ---
DATE: The patient improving, extubated, shortness of breath with saturation therapy . Adrianne Stanley MD
[2017-12-20] MEDS: Multiple Vitamins Tab PO SCH (09:11)
--- NOTE | 2017-12-20 11:29 | CP.PCM.PN ---
Subjective - Date & Time of Evaluation Date of Evaluation: 12/20/17 Time of Evaluation: 07:40 - Subjective Subjective: PGY2 Medicine Note - Dr. Stanley Patient seen and examined at bedside. Patient is tolerating diet. Last BM yesterday, liquid. Patient reports his voice is mildly hoarse after extubation. Being seen by PT. Denies f/c, dizziness, chest pain, SOB, n/v, or any additional complaints. Objective - Vital Signs/Intake and Output Vital Signs (last 24 hours): Temp Pulse Resp BP Pulse Ox 98.6 F 48 L 15 101/52 L 97 12/20/17 08:00 12/20/17 08:00 12/20/17 08:00 12/20/17 07:52 12/20/17 08:00 Intake and Output: 12/20/17 12/20/17 06:59 18:59 Intake Total 240 Output Total 500 Balance -260 - Medications Medications: Current Medications Acetaminophen (Tylenol 650mg/20.3ml Solution Ud) 650 mg PO Q6 PRN PRN Reason: Temperature Last Admin: 12/08/17 11:38 Dose: 650 mg Famotidine (Pepcid) 20 mg IVP DAILY [facility] Last Admin: 12/20/17 09:11 Dose: 20 mg Haloperidol Lactate (Haldol) 0.5 mg IVP DAILY PRN PRN Reason: Psychosis Insulin Aspart (Novolog) 0 unit SC Q6H [facility] PRN Reason: Protocol Last Admin: 12/20/17 05:55 Dose: Not Given Midodrine (Proamatine) 5 mg PO TID [facility] Last Admin: 12/20/17 09:12 Dose: 5 mg Multivitamins (Hexavitamin) 1 tab PO DAILY [facility] Last Admin: 12/20/17 09:11 Dose: 1 tab - Labs Labs: 12/20/17 06:17 12/20/17 06:13 PT 13.5 SECONDS (9.7-12.2) H 12/13/17 06:38 INR 1.2 12/13/17 06:38 APTT 31 SECONDS (21-34) 11/26/17 17:31 - Additional Findings Additional findings: - Constitutional Appears: Non-toxic - Head Exam Head Exam: NORMAL INSPECTION - Eye Exam Eye Exam: Normal appearance - ENT Exam ENT Exam: Mucous Membranes Moist - Neck Exam Neck Exam: Full ROM - Respiratory Exam Respiratory Exam: NORMAL BREATHING PATTERN, Wheezes (upper lung cardoso); absent : Rhonchi, Rales - Cardiovascular Exam Cardiovascular Exam: REGULAR RHYTHM, S1, S2 - GI/Abdominal Exam GI & Abdominal Exam: Normal Bowel Sounds; absent: Tenderness - Extremities Exam Extremities Exam: absent: Pedal Edema - Back Exam Back Exam: NORMAL INSPECTION - Neurological Exam Neurological Exam: Alert, Oriented - Psychiatric Exam Psychiatric exam: Normal Affect, Normal Mood - Skin Skin Exam: Normal Color, Dry, Intact Assessment and Plan - Assessment and Plan (Free Text) Assessment: Pneumonia / Respiratory Failure 12/20: Patient admitted to ICU for sepsis, dx with MRSA bactereima, completed Vanco. WBC 7.1. Continue with nasal canula Tylenol 650mg/20.3ml Solution Ud) 650 mg PO Q6 PRN, fever Vancomycin stopped 12/19/17 - Vanco trough 27.4H today Anemia 12/20: Hgb 8.1, increasing, continue to monitor Acute Kidney Injury 12/20: BUN/Cr 09/01.1 - WNL Continue to monitor CHF exacerbation 12/20: Patient Hypotension 12/20: off pressors, BP stable Proamatine) 5 mg PO TID [facility] Psychosis Haldol) 0.5 mg IVP DAILY PRN Electrolyte Imbalance Hypokalemia, K 3.5 - KCl 40 PO Prophylaxis Pepcid) 20 mg IVP DAILY [facility] Novolog) 0 unit SC Q6H [facility] Hexavitamin) 1 tab PO DAILY [facility] SCDs Case discussed with attending - all management as per Dr. Stanley
[2017-12-20] MEDS ORDERED: Potassium Chloride 20 mEq/15 ml LIQ UD PO ONE ×2 (13:00→15:45)
--- NOTE | 2017-12-20 16:03 | CP.PCM.PN ---
Subjective - Date & Time of Evaluation Date of Evaluation: 12/20/17 Time of Evaluation: 07:00 - Subjective Subjective: overall improved iv rx in progress Objective - Vital Signs/Intake and Output Vital Signs (last 24 hours): Temp Pulse Resp BP Pulse Ox 98.2 F 46 L 16 121/57 L 99 12/20/17 12:00 12/20/17 12:00 12/20/17 12:00 12/20/17 12:00 12/20/17 12:00 Intake and Output: 12/20/17 12/20/17 06:59 18:59 Intake Total 240 250 Output Total 500 200 Balance -260 50 - Medications Medications: Current Medications Acetaminophen (Tylenol 650mg/20.3ml Solution Ud) 650 mg PO Q6 PRN PRN Reason: Temperature Last Admin: 12/08/17 11:38 Dose: 650 mg Famotidine (Pepcid) 20 mg IVP DAILY [facility] Last Admin: 12/20/17 09:11 Dose: 20 mg Haloperidol Lactate (Haldol) 0.5 mg IVP DAILY PRN PRN Reason: Psychosis Insulin Aspart (Novolog) 0 unit SC Q6H [facility] PRN Reason: Protocol Last Admin: 12/20/17 12:32 Dose: Not Given Midodrine (Proamatine) 5 mg PO TID [facility] Last Admin: 12/20/17 15:40 Dose: 5 mg Multivitamins (Hexavitamin) 1 tab PO DAILY [facility] Last Admin: 12/20/17 09:11 Dose: 1 tab - Labs Labs: 12/20/17 06:17 12/20/17 06:13 PT 13.5 SECONDS (9.7-12.2) H 12/13/17 06:38 INR 1.2 12/13/17 06:38 APTT 31 SECONDS (21-34) 11/26/17 17:31 - Constitutional Appears: Non-toxic - Head Exam Head Exam: NORMOCEPHALIC - Eye Exam Eye Exam: PERRL - ENT Exam ENT Exam: Mucous Membranes Dry - Neck Exam Neck Exam: absent: Lymphadenopathy - Respiratory Exam Respiratory Exam: Decreased Breath Sounds - Cardiovascular Exam Cardiovascular Exam: REGULAR RHYTHM - GI/Abdominal Exam GI & Abdominal Exam: Distended, Soft - Rectal Exam Rectal Exam: Deferred - Exam Exam: NORMAL INSPECTION Assessment and Plan (1) Acute urinary retention Status: Acute (2) Fever Status: Acute (3) Sepsis associated hypotension Status: Acute (4) Pneumonia Status: Acute (5) Respiratory failure Status: Acute
[2017-12-21] MEDS: (Novolog) Insulin Aspart, Recombinant 100 u/ml 10 ml vial SC SCH ×4 (06:21→23:21)
[2017-12-21] MEDS: Multiple Vitamins Tab PO SCH (09:48)
--- NOTE | 2017-12-21 09:50 | CP.PCM.PN ---
Subjective - Date & Time of Evaluation Date of Evaluation: 12/21/17 Time of Evaluation: 07:35 - Subjective Subjective: PGY2 Medicine Note - Dr. Stanley Patient seen and examined at bedside. Patient is tolerating diet. Last BM yesterday, soft / liquid - improving on heart healthy diet. Reports hoarseness of voice is improving s/p extubation. Being seen by PT. Denies f/c, dizziness, chest pain, SOB, n/v, or any additional complaints. Objective - Vital Signs/Intake and Output Vital Signs (last 24 hours): Temp Pulse Resp BP Pulse Ox 98.1 F 52 L 20 103/64 97 12/21/17 07:20 12/21/17 07:20 12/21/17 07:20 12/21/17 07:20 12/21/17 07:20 Intake and Output: 12/21/17 12/21/17 06:59 18:59 Intake Total 250 Output Total 300 Balance -50 - Medications Medications: Current Medications Acetaminophen (Tylenol 650mg/20.3ml Solution Ud) 650 mg PO Q6 PRN PRN Reason: Temperature Last Admin: 12/08/17 11:38 Dose: 650 mg Famotidine (Pepcid) 20 mg IVP DAILY [facility] Last Admin: 12/20/17 09:11 Dose: 20 mg Haloperidol Lactate (Haldol) 0.5 mg IVP DAILY PRN PRN Reason: Psychosis Insulin Aspart (Novolog) 0 unit SC Q6H [facility] PRN Reason: Protocol Last Admin: 12/21/17 06:21 Dose: Not Given Midodrine (Proamatine) 5 mg PO TID [facility] Last Admin: 12/20/17 18:00 Dose: Not Given Multivitamins (Hexavitamin) 1 tab PO DAILY [facility] Last Admin: 12/20/17 09:11 Dose: 1 tab - Labs Labs: 12/20/17 06:17 12/20/17 06:13 PT 13.5 SECONDS (9.7-12.2) H 12/13/17 06:38 INR 1.2 12/13/17 06:38 APTT 31 SECONDS (21-34) 11/26/17 17:31 - Additional Findings Additional findings: - Constitutional Appears: Non-toxic - Head Exam Head Exam: NORMAL INSPECTION - Eye Exam Eye Exam: Normal appearance - ENT Exam ENT Exam: Mucous Membranes Moist - Neck Exam Neck Exam: Full ROM - Respiratory Exam Respiratory Exam: NORMAL BREATHING PATTERN, Wheezes (upper lung cardoso); absent : Rhonchi, Rales - Cardiovascular Exam Cardiovascular Exam: REGULAR RHYTHM, S1, S2 - GI/Abdominal Exam GI & Abdominal Exam: Normal Bowel Sounds; absent: Tenderness - Extremities Exam Extremities Exam: absent: Pedal Edema - Back Exam Back Exam: NORMAL INSPECTION - Neurological Exam Neurological Exam: Alert, Oriented - Psychiatric Exam Psychiatric exam: Normal Affect, Normal Mood - Skin Skin Exam: Normal Color, Dry, Intact Assessment and Plan - Assessment and Plan (Free Text) Assessment: Pneumonia / Respiratory Failure 12/21: f/u repeat Vanco trough and resume Vanco for 7 more days. f/u echo to r/o vegetations. f/u Blood / Sputum cultures. 12/20: Patient admitted to ICU for sepsis, dx with MRSA bactereima, Vanco on hold due to elevated vanco trough. WBC 7.1. Continue with nasal canula Tylenol 650mg/20.3ml Solution Ud) 650 mg PO Q6 PRN, fever Vancomycin stopped 12/19/17 - Vanco trough 27.4H today Anemia 12/21: Hgb 8.7, improving. If Hgb begins to drop again, consider Procrit 10,000u MWF. 12/20: Hgb 8.1, increasing, continue to monitor Acute Kidney Injury 12/20-12/21: BUN/Cr WNL Continue to monitor CHF exacerbation 12/20-12/21: Patient stable Hypotension 12/20-12/21: BP stable Proamatine) 5 mg PO TID [facility] Psychosis Haldol) 0.5 mg IVP DAILY PRN Electrolyte Imbalance Hypokalemia, K 3.5 - KCl 40 PO Prophylaxis Pepcid) 20 mg IVP DAILY [facility] Novolog) 0 unit SC Q6H [facility] Hexavitamin) 1 tab PO DAILY [facility] SCDs Disposition: Patient stable for DC to rehab once echo / cultures reviewed. Continue Vanco 1Gm IVPB QD for 7 more days. Followup CXR at rehab. Case discussed with attending - all management as per Dr. Stanley
[2017-12-21 11:19] LABS: BASO % 0.6 % (0.0-2.0); EOS # 0.2 K/uL (0.0-0.7); EOS % 3.2 % (0.0-4.0); HEMOGLOBIN 8.7 g/dL (12.0-18.0); LYMPH # 1.4 K/uL (1.0-4.3); LYMPH % 19.6 % (20.0-40.0); MEAN CELL VOLUME 85.2 fL (80.0-94.0); MEAN CORPUSCULAR HEMOGLOBIN 28.5 pg (27.0-31.0); MEAN CORPUSCULAR HGB CONC 33.5 g/dL (33.0-37.0); MEAN PLATELET VOLUME 8.7 fL (7.2-11.7); MONO # 0.8 K/uL (0.0-0.8); MONO % 12.1 % (0.0-10.0); NEUT # 4.5 K/uL (1.8-7.0); NEUT % 64.5 % (50.0-75.0); NRBC % 0.3 % (0.0-2.0); RBC 3.05 Mil/uL (4.40-5.90); RED CELL DISTRIBUTION WIDTH 17.9 % (11.5-14.5)
[2017-12-21 12:02] LABS: ALB/GLOB RATIO 0.9 (1.0-2.1); ALBUMIN 2.9 g/dL (3.5-5.0); ALT/SGPT 50 U/L (21-72); AST/SGOT 21 U/L (17-59); BLOOD UREA NITROGEN 11 mg/dL (9-20); CALCIUM 8.1 mg/dl (8.6-10.4); GFR AFRICAN-AMERICAN > 60; GFR NON-AFRICAN AMERICAN > 60; MAGNESIUM 1.9 mg/dL (1.6-2.3)
--- NOTE | 2017-12-21 14:06 | CP.PCM.PN ---
Subjective - Date & Time of Evaluation Date of Evaluation: 12/21/17 Time of Evaluation: 14:07 - Subjective Subjective: dictated Objective - Vital Signs/Intake and Output Vital Signs (last 24 hours): Temp Pulse Resp BP Pulse Ox 98.1 F 35 L 20 103/64 97 12/21/17 07:20 12/21/17 07:40 12/21/17 07:20 12/21/17 07:20 12/21/17 07:20 Intake and Output: 12/21/17 12/21/17 06:59 18:59 Intake Total 250 350 Output Total 300 Balance -50 350 - Medications Medications: Current Medications Acetaminophen (Tylenol 650mg/20.3ml Solution Ud) 650 mg PO Q6 PRN PRN Reason: Temperature Last Admin: 12/08/17 11:38 Dose: 650 mg Famotidine (Pepcid) 20 mg PO BID [facility] Haloperidol Lactate (Haldol) 0.5 mg IVP DAILY PRN PRN Reason: Psychosis Insulin Aspart (Novolog) 0 unit SC Q6H ABHIJEET PRN Reason: Protocol Last Admin: 12/21/17 12:09 Dose: Not Given Midodrine (Proamatine) 5 mg PO TID [facility] Last Admin: 12/21/17 13:42 Dose: 5 mg Multivitamins (Hexavitamin) 1 tab PO DAILY [facility] Last Admin: 12/21/17 09:48 Dose: 1 tab - Labs Labs: 12/21/17 11:05 12/21/17 11:05 PT 13.5 SECONDS (9.7-12.2) H 12/13/17 06:38 INR 1.2 12/13/17 06:38 APTT 31 SECONDS (21-34) 11/26/17 17:31 Assessment and Plan (1) CHF exacerbation Status: Acute (2) Hypernatremia Status: Acute (3) Leukocytosis Status: Acute (4) Pneumonia Status: Acute (5) Respiratory failure Status: Acute (6) Acute kidney injury Status: Acute
[2017-12-22] MEDS: (Novolog) Insulin Aspart, Recombinant 100 u/ml 10 ml vial SC SCH ×3 (05:03→17:05)
[2017-12-22 07:39] LABS: ALB/GLOB RATIO 0.9 (1.0-2.1); ALBUMIN 2.9 g/dL (3.5-5.0); ALT/SGPT 40 U/L (21-72); AST/SGOT 22 U/L (17-59); BLOOD UREA NITROGEN 13 mg/dL (9-20); CALCIUM 8.6 mg/dl (8.6-10.4); GFR AFRICAN-AMERICAN > 60; GFR NON-AFRICAN AMERICAN 54
[2017-12-22 07:49] LABS: BASO % 0.5 % (0.0-2.0); EOS # 0.3 K/uL (0.0-0.7); EOS % 3.1 % (0.0-4.0); HEMOGLOBIN 9.1 g/dL (12.0-18.0); LYMPH # 1.9 K/uL (1.0-4.3); LYMPH % 21.9 % (20.0-40.0); MEAN CORPUSCULAR HGB CONC 34.1 g/dL (33.0-37.0); MEAN PLATELET VOLUME 8.5 fL (7.2-11.7); MONO % 11.8 % (0.0-10.0); NEUT # 5.4 K/uL (1.8-7.0); NEUT % 62.7 % (50.0-75.0); NRBC % 0.2 % (0.0-2.0); RBC 3.14 Mil/uL (4.40-5.90); RED CELL DISTRIBUTION WIDTH 17.5 % (11.5-14.5); WHITE BLOOD COUNT 8.6 K/uL (4.8-10.8)
--- NOTE | 2017-12-22 10:04 | CP.PCM.PN ---
Subjective - Date & Time of Evaluation Date of Evaluation: 12/22/17 Time of Evaluation: 12:44 - Subjective Subjective: PGY2 Medicine note for Dr. Stanley, all management as per Dr. Stanley Patient seen and examined at bedside this AM with attending physician; patient has no complaints and is waiting to be transferred to [facility]; pending repeat blood cultures and echo for abx treatment length. denies 12 point review of systems at this point. Objective - Vital Signs/Intake and Output Vital Signs (last 24 hours): Temp Pulse Resp BP Pulse Ox 98.8 F 51 L 20 136/72 96 12/22/17 07:30 12/22/17 07:30 12/22/17 07:30 12/22/17 07:30 12/22/17 07:30 Intake and Output: 12/22/17 12/22/17 06:59 18:59 Intake Total 400 Output Total 300 Balance 100 - Medications Medications: Current Medications Acetaminophen (Tylenol 650mg/20.3ml Solution Ud) 650 mg PO Q6 PRN PRN Reason: Temperature Last Admin: 12/08/17 11:38 Dose: 650 mg Famotidine (Pepcid) 20 mg PO BID [facility] Haloperidol Lactate (Haldol) 0.5 mg IVP DAILY PRN PRN Reason: Psychosis Insulin Aspart (Novolog) 0 unit SC Q6H ABHIJEET PRN Reason: Protocol Last Admin: 12/22/17 05:03 Dose: Not Given Midodrine (Proamatine) 5 mg PO TID [facility] Last Admin: 12/21/17 18:50 Dose: 5 mg Multivitamins (Hexavitamin) 1 tab PO DAILY [facility] Last Admin: 12/21/17 09:48 Dose: 1 tab - Labs Labs: 12/22/17 07:11 12/22/17 07:11 PT 13.5 SECONDS (9.7-12.2) H 12/13/17 06:38 INR 1.2 12/13/17 06:38 APTT 31 SECONDS (21-34) 11/26/17 17:31 - Constitutional Appears: Chronically Ill - Head Exam Head Exam: ATRAUMATIC - Eye Exam Eye Exam: EOMI - ENT Exam ENT Exam: Mucous Membranes Moist - Neck Exam Neck Exam: Full ROM - Respiratory Exam Respiratory Exam: Clear to Ausculation Bilateral - Cardiovascular Exam Cardiovascular Exam: REGULAR RHYTHM - GI/Abdominal Exam GI & Abdominal Exam: Soft, Normal Bowel Sounds - Back Exam Back Exam: absent: CVA tenderness (L), CVA tenderness (R) - Neurological Exam Neurological Exam: Alert, Awake - Skin Skin Exam: Warm Assessment and Plan - Assessment and Plan (Free Text) Assessment: Pneumonia / Respiratory Failure 12/22: Trough 16 WNL, Bcx still pending, echo still pending, sputum still pending 12/21: f/u repeat Vanco trough and resume Vanco for 7 more days. f/u echo to r/o vegetations. f/u Blood / Sputum cultures. 12/20: Patient admitted to ICU for sepsis, dx with MRSA bactereima, Vanco on hold due to elevated vanco trough. WBC 7.1. Continue with nasal canula Tylenol 650mg/20.3ml Solution Ud) 650 mg PO Q6 PRN, fever Vancomycin stopped 12/19/17 - Vanco trough 27.4H today Anemia;chronic/stable 12/22: Hgb 9.1 12/21: Hgb 8.7, improving. If Hgb begins to drop again, consider Procrit 10,000u MWF. 12/20: Hgb 8.1, increasing, continue to monitor Acute Kidney Injury; resolved 12/21; will continue to monitor 12/20-12/21: BUN/Cr WNL Continue to monitor CHF exacerbation; acute on chronic with diastolic and systolic dysfunction 12/20-12/21: Patient stable Psychosis/Delirium Haldol) 0.5 mg IVP DAILY PRN Electrolyte Imbalance Hypokalemia, K 3.5 - KCl 40 PO Prophylaxis Pepcid) 20 mg IVP DAILY [facility] Novolog) 0 unit SC Q6H ABHIJEET Hexavitamin) 1 tab PO DAILY [facility] SCDs Disposition: Patient stable for DC to rehab once echo / cultures reviewed. Continue Vanco 1Gm IVPB QD for 7 more days. Followup CXR at rehab. All management as per Dr. Stanley
--- NOTE | 2017-12-22 10:22 | PN ---
SUBJECTIVE: The patient is sitting up in bed, appeared to be more awake and conscious. I asked the nurse about his appetite and reported that he has been eating much better. PHYSICAL EXAMINATION: GENERAL: The patient is conscious. VITAL SIGNS: Noted to be okay with the blood pressure 103/64, pulse 52, temperature 98.1. CHEST: Clear. HEART: No rubs. ABDOMEN: Soft. EXTREMITIES: No pitting edema. LABORATORY DATA: As reported sodium is improving, the most recent sodium is 148, from as high as 151, but the rest of the electrolytes is unremarkable. IMPRESSION: 1. The patient recovering from acute kidney injury. 2. Hypernatremia, corrected and in addition to the other problem appeared to be stable. 4. The patient is status post respiratory failure, he was on vent which obviously continued to improve. Matteo Horton MD
[2017-12-22] MEDS: Multiple Vitamins Tab PO SCH (10:42)
[2017-12-23] MEDS: (Novolog) Insulin Aspart, Recombinant 100 u/ml 10 ml vial SC SCH ×5 (00:31→23:59)
[2017-12-23 07:56] LABS: BASO # 0.1 K/uL (0.0-0.2); BASO % 1.1 % (0.0-2.0); EOS # 0.2 K/uL (0.0-0.7); EOS % 2.5 % (0.0-4.0); LYMPH # 1.8 K/uL (1.0-4.3); LYMPH % 21.2 % (20.0-40.0); MEAN CELL VOLUME 85.1 fL (80.0-94.0); MEAN CORPUSCULAR HEMOGLOBIN 28.7 pg (27.0-31.0); MEAN CORPUSCULAR HGB CONC 33.7 g/dL (33.0-37.0); MEAN PLATELET VOLUME 8.5 fL (7.2-11.7); MONO # 1.2 K/uL (0.0-0.8); NEUT # 5.1 K/uL (1.8-7.0); NEUT % 61.2 % (50.0-75.0); RBC 3.13 Mil/uL (4.40-5.90); RED CELL DISTRIBUTION WIDTH 18.8 % (11.5-14.5); WHITE BLOOD COUNT 8.3 K/uL (4.8-10.8)
[2017-12-23 08:08] LABS: ALB/GLOB RATIO 0.9 (1.0-2.1); ALBUMIN 3.2 g/dL (3.5-5.0); ALT/SGPT 38 U/L (21-72); AST/SGOT 25 U/L (17-59); BLOOD UREA NITROGEN 14 mg/dL (9-20); CALCIUM 8.6 mg/dl (8.6-10.4); GFR AFRICAN-AMERICAN > 60; GFR NON-AFRICAN AMERICAN 60; MAGNESIUM 2.1 mg/dL (1.6-2.3)
[2017-12-23] MEDS: Multiple Vitamins Tab PO SCH (10:10)
--- NOTE | 2017-12-23 10:42 | CP.PCM.PN ---
Subjective - Date & Time of Evaluation Date of Evaluation: 12/23/17 Time of Evaluation: 10:41 - Subjective Subjective: PGY2 Note for Dr. Stanley The patient was seen and examined at bedside this AM; the patient is stable for transfer to rehab just pending echo and bcx negative for 48hours for abx therapy. Patient has no complaints. Objective - Vital Signs/Intake and Output Vital Signs (last 24 hours): Temp Pulse Resp BP Pulse Ox 98.1 F 54 L 20 100/66 97 12/23/17 07:20 12/23/17 07:20 12/23/17 07:20 12/23/17 07:20 12/23/17 07:20 Intake and Output: 12/23/17 12/23/17 06:59 18:59 Intake Total 420 Output Total 1300 Balance -880 - Medications Medications: Current Medications Acetaminophen (Tylenol 650mg/20.3ml Solution Ud) 650 mg PO Q6 PRN PRN Reason: Temperature Last Admin: 12/08/17 11:38 Dose: 650 mg Famotidine (Pepcid) 20 mg PO BID [facility] Last Admin: 12/23/17 10:10 Dose: 20 mg Haloperidol Lactate (Haldol) 0.5 mg IVP DAILY PRN PRN Reason: Psychosis Insulin Aspart (Novolog) 0 unit SC Q6H ABHIJEET PRN Reason: Protocol Last Admin: 12/23/17 06:56 Dose: Not Given Midodrine (Proamatine) 5 mg PO TID [facility] Last Admin: 12/23/17 10:17 Dose: 5 mg Multivitamins (Hexavitamin) 1 tab PO DAILY [facility] Last Admin: 12/23/17 10:10 Dose: 1 tab - Labs Labs: 12/23/17 07:47 12/23/17 07:47 PT 13.5 SECONDS (9.7-12.2) H 12/13/17 06:38 INR 1.2 12/13/17 06:38 APTT 31 SECONDS (21-34) 11/26/17 17:31 - Head Exam Additional comments: Head Exam: ATRAUMATIC Appears chronically ill - Eye Exam Eye Exam: EOMI - ENT Exam ENT Exam: Mucous Membranes Moist - Neck Exam Neck Exam: Full ROM - Respiratory Exam Respiratory Exam: Clear to Ausculation Bilateral - Cardiovascular Exam Cardiovascular Exam: REGULAR RHYTHM - GI/Abdominal Exam GI & Abdominal Exam: Soft, Normal Bowel Sounds - Back Exam Back Exam: absent: CVA tenderness (L), CVA tenderness (R) - Neurological Exam Neurological Exam: Alert, Awake - Skin Skin Exam: Warm Assessment and Plan - Assessment and Plan (Free Text) Assessment: Pneumonia / Respiratory Failure 12/23; c/w current abx 12/22: Trough 16 WNL, Bcx still pending, echo still pending, sputum still pending 12/21: f/u repeat Vanco trough and resume Vanco for 7 more days. f/u echo to r/o vegetations. f/u Blood / Sputum cultures. 12/20: Patient admitted to ICU for sepsis, dx with MRSA bactereima, Vanco on hold due to elevated vanco trough. WBC 7.1. Continue with nasal canula Tylenol 650mg/20.3ml Solution Ud) 650 mg PO Q6 PRN, fever Vancomycin stopped 12/19/17 - Vanco trough 27.4H today Anemia;chronic/stable 12/23: stable 9.0 12/22: Hgb 9.1 12/21: Hgb 8.7, improving. If Hgb begins to drop again, consider Procrit 10,000u MWF. 12/20: Hgb 8.1, increasing, continue to monitor Acute Kidney Injury; resolved 12/21; will continue to monitor 12/20-12/21: BUN/Cr WNL Continue to monitor CHF exacerbation; acute on chronic with diastolic and systolic dysfunction 12/20-12/21: Patient stable Psychosis/Delirium Haldol) 0.5 mg IVP DAILY PRN Electrolyte Imbalance Hypokalemia, K 3.5 - KCl 40 PO Prophylaxis Pepcid) 20 mg IVP DAILY [facility] Novolog) 0 unit SC Q6H ABHIJE[facility] Hexavitamin) 1 tab PO DAILY [facility] SCDs Disposition: Patient stable for DC to rehab once echo / cultures reviewed. Continue Vanco 1Gm IVPB QD for 7 more days. Followup CXR at rehab. All management as per Dr. Stanley
--- NOTE | 2017-12-23 12:00 | CARD ---
APPROVED REPORT EXAM: Two-dimensional and M-mode echocardiogram with Doppler and color Doppler. Other Information Quality : GoodRhythm : INDICATION Dyspnea Infection:Rule out subacute bacterial endocarditis Congestive Heart Failure FEVER Mitral Valve E/A ratio0.0 TDI E/Lateral E'0.0E/Medial E'0.0 LEFT VENTRICLE The left ventricle is normal size. There is normal left ventricular wall thickness. The left ventricular function is normal. The left ventricular ejection fraction is within the normal range. No regional wall motion abnormalities noted. The left ventricular diastolic function is normal. No left ventricle thrombus noted on this study. There is no ventricular septal defect visualized. There is no left ventricular aneurysm. There is no mass noted in the left ventricle. RIGHT VENTRICLE The right ventricle is normal size. There is normal right ventricular wall thickness. The right ventricular systolic function is normal. ATRIA The left atrium size is normal. The right atrium size is normal. The interatrial septum is intact with no evidence for an atrial septal defect. AORTIC VALVE The aortic valve is normal in structure and function. No aortic regurgitation is present. There is no aortic valvular stenosis. There is no aortic valvular vegetation. MITRAL VALVE The mitral valve is normal in structure and function. There is no evidence of mitral valve prolapse. There is no mitral valve stenosis. There is no mitral valve regurgitation noted. TRICUSPID VALVE The tricuspid valve is normal in structure and function. There is no tricuspid valve regurgitation noted. There is no tricuspid valve prolapse or vegetation. There is no tricuspid valve stenosis. PULMONIC VALVE The pulmonary valve is normal in structure and function. There is no pulmonic valvular regurgitation. There is no pulmonic valvular stenosis. GREAT VESSELS The aortic root is normal in size. The ascending aorta is normal in size. The pulmonary artery is normal. The IVC is normal in size and collapses >50% with inspiration. PERICARDIAL EFFUSION The pericardium appears normal. There is no pleural effusion. <Conclusion> The left ventricular function is normal. The left ventricular ejection fraction is within the normal range. No regional wall motion abnormalities noted. NO DEFINITE ANY VALVULAR VEGETATION . If preclinical probability of SBE is intermediate and high , obtain [facility]
--- NOTE | 2017-12-23 18:23 | CP.PCM.PN ---
Subjective - Date & Time of Evaluation Date of Evaluation: 12/23/17 Time of Evaluation: 09:00 - Subjective Subjective: still coughing talha fever + sputum MRSA latest blood cultures neg await [facility] Objective - Vital Signs/Intake and Output Vital Signs (last 24 hours): Temp Pulse Resp BP Pulse Ox 98.4 F 56 L 20 95/58 L 97 12/23/17 16:00 12/23/17 16:00 12/23/17 16:00 12/23/17 16:00 12/23/17 16:00 Intake and Output: 12/23/17 12/23/17 06:59 18:59 Intake Total 420 560 Output Total 1300 400 Balance -880 160 - Medications Medications: Current Medications Acetaminophen (Tylenol 650mg/20.3ml Solution Ud) 650 mg PO Q6 PRN PRN Reason: Temperature Last Admin: 12/08/17 11:38 Dose: 650 mg Famotidine (Pepcid) 20 mg PO BID [facility] Last Admin: 12/23/17 10:10 Dose: 20 mg Haloperidol Lactate (Haldol) 0.5 mg IVP DAILY PRN PRN Reason: Psychosis Vancomycin/Sodium Chloride (Vancomycin 1 Gm/Ns 200 Ml) 1 gm in 200 mls @ 166.7 mls/hr IVPB Q12H [facility] Stop: 12/28/17 18:01 Insulin Aspart (Novolog) 0 unit SC Q6H ABHIJEET PRN Reason: Protocol Last Admin: 12/23/17 12:11 Dose: Not Given Midodrine (Proamatine) 5 mg PO TID [facility] Last Admin: 12/23/17 14:32 Dose: Not Given Multivitamins (Hexavitamin) 1 tab PO DAILY [facility] Last Admin: 12/23/17 10:10 Dose: 1 tab - Labs Labs: 12/23/17 07:47 12/23/17 07:47 PT 13.5 SECONDS (9.7-12.2) H 12/13/17 06:38 INR 1.2 12/13/17 06:38 APTT 31 SECONDS (21-34) 11/26/17 17:31 - Constitutional Appears: Non-toxic - Head Exam Head Exam: NORMOCEPHALIC - Eye Exam Eye Exam: absent: Scleral icterus - ENT Exam ENT Exam: Mucous Membranes Dry - Neck Exam Neck Exam: absent: Lymphadenopathy - Respiratory Exam Respiratory Exam: Decreased Breath Sounds, Rhonchi - Cardiovascular Exam Cardiovascular Exam: REGULAR RHYTHM - Rectal Exam Rectal Exam: Deferred Assessment and Plan (1) Acute urinary retention Status: Acute (2) Fever Status: Acute (3) Sepsis associated hypotension Status: Acute (4) Pneumonia Status: Acute (5) Respiratory failure Status: Acute - Assessment and Plan (Free Text) Assessment: MRSA sepsis/ pneumonia ? IE for [facility]
[2017-12-23] MEDS: Vancomycin 1 gm/NS 200 ml 1 GM/200 ML BAG IVPB SCH (18:52)
[2017-12-24] MEDS: (Novolog) Insulin Aspart, Recombinant 100 u/ml 10 ml vial SC SCH ×4 (05:07→17:27)
[2017-12-24] MEDS: Vancomycin 1 gm/NS 200 ml 1 GM/200 ML BAG IVPB SCH ×2 (05:09→17:29)
--- NOTE | 2017-12-24 07:05 | CP.PCM.PN ---
Subjective - Date & Time of Evaluation Date of Evaluation: 12/24/17 Time of Evaluation: 13:20 - Subjective Subjective: PGY2 Medicine Note for Dr. Stanley; all management as per Dr. Stanley Patient seen and examined at bedside this AM; patient has no complaints and is excited to go to rehab. Objective - Vital Signs/Intake and Output Vital Signs (last 24 hours): Temp Pulse Resp BP Pulse Ox 97.9 F 60 20 97/61 L 96 12/24/17 01:25 12/24/17 01:25 12/24/17 01:25 12/24/17 01:25 12/24/17 01:25 Intake and Output: 12/24/17 12/24/17 06:59 18:59 Intake Total 580 Output Total 1000 Balance -420 - Medications Medications: Current Medications Acetaminophen (Tylenol 650mg/20.3ml Solution Ud) 650 mg PO Q6 PRN PRN Reason: Temperature Last Admin: 12/08/17 11:38 Dose: 650 mg Famotidine (Pepcid) 20 mg PO BID [facility] Last Admin: 12/23/17 18:52 Dose: 20 mg Haloperidol Lactate (Haldol) 0.5 mg IVP DAILY PRN PRN Reason: Psychosis Vancomycin/Sodium Chloride (Vancomycin 1 Gm/Ns 200 Ml) 1 gm in 200 mls @ 166.7 mls/hr IVPB Q12H [facility] Stop: 12/28/17 18:01 Last Admin: 12/24/17 05:09 Dose: 166.7 mls/hr Insulin Aspart (Novolog) 0 unit SC Q6H [facility] PRN Reason: Protocol Last Admin: 12/24/17 06:25 Dose: Not Given Midodrine (Proamatine) 5 mg PO TID [facility] Last Admin: 12/23/17 18:52 Dose: 5 mg Multivitamins (Hexavitamin) 1 tab PO DAILY [facility] Last Admin: 12/23/17 10:10 Dose: 1 tab - Labs Labs: 12/23/17 07:47 12/23/17 07:47 PT 13.5 SECONDS (9.7-12.2) H 12/13/17 06:38 INR 1.2 12/13/17 06:38 APTT 31 SECONDS (21-34) 11/26/17 17:31 - Head Exam Additional comments: Head Exam: ATRAUMATIC Appears chronically ill - Eye Exam Eye Exam: EOMI - ENT Exam ENT Exam: Mucous Membranes Moist - Neck Exam Neck Exam: Full ROM - Respiratory Exam Respiratory Exam: Clear to Ausculation Bilateral - Cardiovascular Exam Cardiovascular Exam: REGULAR RHYTHM - GI/Abdominal Exam GI & Abdominal Exam: Soft, Normal Bowel Sounds - Back Exam Back Exam: absent: CVA tenderness (L), CVA tenderness (R) - Neurological Exam Neurological Exam: Alert, Awake - Skin Skin Exam: Warm Assessment and Plan - Assessment and Plan (Free Text) Assessment: Pneumonia / Respiratory Failure 12/23; c/w current abx 12/22: Trough 16 WNL, Bcx still pending, echo still pending, sputum still pending 12/21: f/u repeat Vanco trough and resume Vanco for 7 more days. f/u echo to r/o vegetations. f/u Blood / Sputum cultures. 12/20: Patient admitted to ICU for sepsis, dx with MRSA bactereima, Vanco on hold due to elevated vanco trough. WBC 7.1. Continue with nasal canula Tylenol 650mg/20.3ml Solution Ud) 650 mg PO Q6 PRN, fever Vancomycin stopped 12/19/17 - Vanco trough 27.4H today Anemia;chronic/stable 12/23: stable 9.0 12/22: Hgb 9.1 12/21: Hgb 8.7, improving. If Hgb begins to drop again, consider Procrit 10,000u MWF. 12/20: Hgb 8.1, increasing, continue to monitor Acute Kidney Injury; resolved 12/21; will continue to monitor 12/20-12/21: BUN/Cr WNL Continue to monitor CHF exacerbation; acute on chronic with diastolic and systolic dysfunction Psychosis/Delirium Haldol) 0.5 mg IVP DAILY PRN Electrolyte Imbalance Hypokalemia, K 3.5 - KCl 40 PO Prophylaxis Pepcid) 20 mg IVP DAILY [facility] Novolog) 0 unit SC Q6H [facility] Hexavitamin) 1 tab PO DAILY [facility] SCD[facility] Disposition: Followup CXR at rehab. C/w Haldol .5mg IV Daily c/w midrodrine 5mg PO TID c/w Multivitamin c/w vancomycin 1g IV daily for 7 days in rehab center c/w tamsulosin 0.4mg daily PO c/w Prostat daily as well Patient should be repositioned every 2 hours in bed 2/2 to deconditioning to prevent bed sores patient should receive agressive PT/OT as much as tolerated All management as per Dr. Stanley
[2017-12-24 08:03] LABS: BASO % 0.2 % (0.0-2.0); EOS # 0.2 K/uL (0.0-0.7); EOS % 2.8 % (0.0-4.0); HEMOGLOBIN 8.5 g/dL (12.0-18.0); LYMPH # 1.6 K/uL (1.0-4.3); MEAN CELL VOLUME 85.2 fL (80.0-94.0); MEAN CORPUSCULAR HEMOGLOBIN 29.2 pg (27.0-31.0); MEAN CORPUSCULAR HGB CONC 34.3 g/dL (33.0-37.0); MEAN PLATELET VOLUME 8.5 fL (7.2-11.7); MONO # 1.4 K/uL (0.0-0.8); MONO % 16.9 % (0.0-10.0); NEUT # 4.9 K/uL (1.8-7.0); NEUT % 60.1 % (50.0-75.0); NRBC % 0.1 % (0.0-2.0); RBC 2.93 Mil/uL (4.40-5.90); RED CELL DISTRIBUTION WIDTH 19.2 % (11.5-14.5); WHITE BLOOD COUNT 8.2 K/uL (4.8-10.8)
[2017-12-24 08:17] LABS: ALB/GLOB RATIO 0.9 (1.0-2.1); ALBUMIN 2.9 g/dL (3.5-5.0); ALT/SGPT 28 U/L (21-72); AST/SGOT 19 U/L (17-59); BLOOD UREA NITROGEN 14 mg/dL (9-20); CALCIUM 8.4 mg/dl (8.6-10.4); GFR AFRICAN-AMERICAN > 60; GFR NON-AFRICAN AMERICAN 60
[2017-12-24] MEDS: Multiple Vitamins Tab PO SCH (09:55)
[2017-12-24] MEDS ORDERED: Pneumococcal 23-Valent Vaccine IM ONE (14:00)
[2017-12-25] MEDS: Vancomycin 1 gm/NS 200 ml 1 GM/200 ML BAG IVPB SCH (05:40)
[2017-12-25 09:20] LABS: BASO % 0.6 % (0.0-2.0); EOS # 0.2 K/uL (0.0-0.7); EOS % 2.5 % (0.0-4.0); HEMOGLOBIN 8.9 g/dL (12.0-18.0); LYMPH # 1.4 K/uL (1.0-4.3); LYMPH % 17.2 % (20.0-40.0); MEAN CELL VOLUME 85.6 fL (80.0-94.0); MEAN CORPUSCULAR HEMOGLOBIN 28.9 pg (27.0-31.0); MEAN CORPUSCULAR HGB CONC 33.7 g/dL (33.0-37.0); MEAN PLATELET VOLUME 8.9 fL (7.2-11.7); MONO # 1.2 K/uL (0.0-0.8); NEUT # 5.2 K/uL (1.8-7.0); NEUT % 64.7 % (50.0-75.0); NRBC % 0.1 % (0.0-2.0); RBC 3.07 Mil/uL (4.40-5.90); RED CELL DISTRIBUTION WIDTH 19.4 % (11.5-14.5); WHITE BLOOD COUNT 8.1 K/uL (4.8-10.8)
[2017-12-25 09:31] LABS: ALB/GLOB RATIO 0.9 (1.0-2.1); ALBUMIN 3.1 g/dL (3.5-5.0); ALT/SGPT 30 U/L (21-72); AST/SGOT 19 U/L (17-59); BLOOD UREA NITROGEN 15 mg/dL (9-20); CALCIUM 8.8 mg/dl (8.6-10.4); GFR AFRICAN-AMERICAN > 60; GFR NON-AFRICAN AMERICAN 60; MAGNESIUM 2.1 mg/dL (1.6-2.3)
[2017-12-25] MEDS: Multiple Vitamins Tab PO SCH (09:52)
[2017-12-26 08:35] LABS: BASO % 0.3 % (0.0-2.0); EOS # 0.2 K/uL (0.0-0.7); EOS % 2.7 % (0.0-4.0); HEMOGLOBIN 9.2 g/dL (12.0-18.0); LYMPH # 1.3 K/uL (1.0-4.3); LYMPH % 17.5 % (20.0-40.0); MEAN CELL VOLUME 86.1 fL (80.0-94.0); MEAN CORPUSCULAR HEMOGLOBIN 28.7 pg (27.0-31.0); MEAN CORPUSCULAR HGB CONC 33.3 g/dL (33.0-37.0); MEAN PLATELET VOLUME 8.5 fL (7.2-11.7); MONO # 1.2 K/uL (0.0-0.8); MONO % 16.3 % (0.0-10.0); NEUT # 4.6 K/uL (1.8-7.0); NEUT % 63.2 % (50.0-75.0); RBC 3.22 Mil/uL (4.40-5.90); RED CELL DISTRIBUTION WIDTH 20.1 % (11.5-14.5); WHITE BLOOD COUNT 7.2 K/uL (4.8-10.8)
[2017-12-26 08:54] LABS: ALB/GLOB RATIO 0.9 (1.0-2.1); ALBUMIN 3.1 g/dL (3.5-5.0); ALT/SGPT 27 U/L (21-72); AST/SGOT 16 U/L (17-59); BLOOD UREA NITROGEN 15 mg/dL (9-20); CALCIUM 8.9 mg/dl (8.6-10.4); GFR AFRICAN-AMERICAN > 60; GFR NON-AFRICAN AMERICAN 54; MAGNESIUM 2.2 mg/dL (1.6-2.3)
[2017-12-26] MEDS: Multiple Vitamins Tab PO SCH (10:06)
--- NOTE | 2017-12-26 14:54 | CP.PCM.PN ---
Subjective - Date & Time of Evaluation Date of Evaluation: 12/26/17 Time of Evaluation: 08:00 - Subjective Subjective: less cough no fever Objective - Vital Signs/Intake and Output Vital Signs (last 24 hours): Temp Pulse Resp BP Pulse Ox 97.5 F L 64 20 116/70 97 12/26/17 09:36 12/26/17 09:36 12/26/17 09:36 12/26/17 09:36 12/26/17 09:36 Intake and Output: 12/26/17 12/26/17 06:59 18:59 Intake Total 500 Output Total 1000 Balance -500 - Medications Medications: Current Medications Acetaminophen (Tylenol 650mg/20.3ml Solution Ud) 650 mg PO Q6 PRN PRN Reason: Temperature Last Admin: 12/08/17 11:38 Dose: 650 mg Famotidine (Pepcid) 20 mg PO BID [facility] Last Admin: 12/26/17 10:06 Dose: 20 mg Haloperidol Lactate (Haldol) 0.5 mg IVP DAILY PRN PRN Reason: Psychosis Midodrine (Proamatine) 5 mg PO TID [facility] Last Admin: 12/26/17 10:05 Dose: Not Given Multivitamins (Hexavitamin) 1 tab PO DAILY [facility] Last Admin: 12/26/17 10:06 Dose: 1 tab - Labs Labs: 12/26/17 08:16 12/26/17 08:16 PT 13.5 SECONDS (9.7-12.2) H 12/13/17 06:38 INR 1.2 12/13/17 06:38 APTT 31 SECONDS (21-34) 11/26/17 17:31 - Constitutional Appears: Non-toxic, Chronically Ill - Head Exam Head Exam: NORMOCEPHALIC - Eye Exam Eye Exam: PERRL. absent: Scleral icterus - ENT Exam ENT Exam: Mucous Membranes Dry - Neck Exam Neck Exam: absent: Lymphadenopathy - Respiratory Exam Respiratory Exam: Decreased Breath Sounds - Cardiovascular Exam Cardiovascular Exam: REGULAR RHYTHM - GI/Abdominal Exam GI & Abdominal Exam: Distended, Soft - Rectal Exam Rectal Exam: Deferred - Exam Exam: NORMAL INSPECTION - Extremities Exam Extremities Exam: absent: Pedal Edema - Back Exam Back Exam: absent: CVA tenderness (L), CVA tenderness (R) - Neurological Exam Neurological Exam: Alert, Awake, Oriented x3 Assessment and Plan (1) Acute urinary retention Status: Acute (2) Fever Status: Acute (3) Sepsis associated hypotension Status: Acute (4) Pneumonia Status: Acute (5) Respiratory failure Status: Acute - Assessment and Plan (Free Text) Assessment: cont iv vanco Plan: await [facility]
[2017-12-26] MEDS ORDERED: Vancomycin 1 gm/NS 200 ml 1 GM/200 ML BAG IVPB SCH (15:00)
--- NOTE | 2017-12-26 22:26 | PN ---
DATE: The patient is improving, shortness of breath is less. Continue physical therapy. . Adrianne Stanley MD
[2017-12-27 02:11] VITALS: RESP 20; TEMP 99.1
[2017-12-27 08:47] LABS: BASO # 0.1 K/uL (0.0-0.2); BASO % 0.7 % (0.0-2.0); EOS # 0.2 K/uL (0.0-0.7); EOS % 2.2 % (0.0-4.0); HEMOGLOBIN 8.5 g/dL (12.0-18.0); LYMPH # 1.5 K/uL (1.0-4.3); MEAN CELL VOLUME 86.2 fL (80.0-94.0); MEAN CORPUSCULAR HEMOGLOBIN 28.9 pg (27.0-31.0); MEAN CORPUSCULAR HGB CONC 33.6 g/dL (33.0-37.0); MEAN PLATELET VOLUME 8.9 fL (7.2-11.7); MONO # 1.5 K/uL (0.0-0.8); MONO % 18.8 % (0.0-10.0); NEUT # 4.6 K/uL (1.8-7.0); NEUT % 59.3 % (50.0-75.0); RBC 2.93 Mil/uL (4.40-5.90); RED CELL DISTRIBUTION WIDTH 20.4 % (11.5-14.5); WHITE BLOOD COUNT 7.7 K/uL (4.8-10.8)
--- NOTE | 2017-12-27 08:54 | CP.PCM.PN ---
Subjective - Date & Time of Evaluation Date of Evaluation: 12/27/17 Time of Evaluation: 07:05 - Subjective Subjective: PGY2 Medicine Note for Dr. Stanley Patient seen and examined at bedside this AM; patient has no complaints. Reports he is tolerating his diet and passing normal BM's. Reports feeling well , looking forward to rehab. --- Patient is stable for discharge per Dr. Stanley. Patient should resume all medications as outlined in this document. Please make an appointment and follow up with your Primary Doctor within one week of discharge. Patient should return to ED immediately if symptoms return or worsen. Instructions discussed with patient who understood and agreed. Followup CXR at rehab. C/w Haldol .5mg IV Daily c/w midrodrine 5mg PO TID c/w Multivitamin c/w vancomycin 1g IV daily for 4 days in rehab center (through 12/31/17) -check vanco trough 12/28/17 c/w tamsulosin 0.4mg daily PO c/w Prostat daily as well Patient should be repositioned every 2 hours in bed 12/03 to deconditioning to prevent bed sores patient should receive agressive PT/OT as much as tolerated Objective - Vital Signs/Intake and Output Vital Signs (last 24 hours): Temp Pulse Resp BP Pulse Ox 99.1 F 62 20 125/71 98 12/27/17 02:10 12/27/17 02:10 12/27/17 02:10 12/27/17 02:10 12/27/17 02:10 Intake and Output: 12/27/17 12/27/17 06:59 18:59 Intake Total 100 Output Total 650 Balance -550 - Medications Medications: Current Medications Acetaminophen (Tylenol 650mg/20.3ml Solution Ud) 650 mg PO Q6 PRN PRN Reason: Temperature Last Admin: 12/08/17 11:38 Dose: 650 mg Famotidine (Pepcid) 20 mg PO BID [facility] Last Admin: 12/26/17 17:03 Dose: 20 mg Haloperidol Lactate (Haldol) 0.5 mg IVP DAILY PRN PRN Reason: Psychosis Vancomycin/Sodium Chloride (Vancomycin 1 Gm/Ns 200 Ml) 1 gm in 200 mls @ 166.7 mls/hr IVPB Q24H [facility] Stop: 12/31/17 15:01 Last Admin: 12/26/17 17:03 Dose: 166.7 mls/hr Midodrine (Proamatine) 5 mg PO TID [facility] Last Admin: 12/26/17 17:03 Dose: 5 mg Multivitamins (Hexavitamin) 1 tab PO DAILY [facility] Last Admin: 12/26/17 10:06 Dose: 1 tab - Labs Labs: 12/26/17 08:16 12/26/17 08:16 PT 13.5 SECONDS (9.7-12.2) H 12/13/17 06:38 INR 1.2 12/13/17 06:38 APTT 31 SECONDS (21-34) 11/26/17 17:31 - Additional Findings Additional findings: - Head Exam Additional comments: Head Exam: ATRAUMATIC Appears chronically ill - Eye Exam Eye Exam: EOMI - ENT Exam ENT Exam: Mucous Membranes Moist - Neck Exam Neck Exam: Full ROM - Respiratory Exam Respiratory Exam: Clear to Ausculation Bilateral, Wheezes (mild in LLL) - Cardiovascular Exam Cardiovascular Exam: REGULAR RHYTHM - GI/Abdominal Exam GI & Abdominal Exam: Soft, Normal Bowel Sounds - Back Exam Back Exam: absent: CVA tenderness (L), CVA tenderness (R) - Neurological Exam Neurological Exam: Alert, Awake - Skin Skin Exam: Warm Assessment and Plan - Assessment and Plan (Free Text) Assessment: Pneumonia / Respiratory Failure 12/27: c/w vancomycin 1g IV daily for 4 days in rehab center (through 12/31/17) - check vanco trough 12/28/1712/23; c/w current abx 12/22: Trough 16 WNL, Bcx still pending, echo still pending, sputum still pending 12/21: f/u repeat Vanco trough and resume Vanco for 7 more days. f/u echo to r/o vegetations. f/u Blood / Sputum cultures. 12/20: Patient admitted to ICU for sepsis, dx with MRSA bactereima, Vanco on hold due to elevated vanco trough. WBC 7.1. Continue with nasal canula Tylenol 650mg/20.3ml Solution Ud) 650 mg PO Q6 PRN, fever Vancomycin stopped 12/19/17 - Vanco trough 27.4H today Anemia;chronic/stable 12/27: Hgb 8.5; mild fluctuation. 12/23: stable 9.0 12/22: Hgb 9.1 12/21: Hgb 8.7, improving. If Hgb begins to drop again, consider Procrit 10,000u MWF. 12/20: Hgb 8.1, increasing, continue to monitor Acute Kidney Injury; resolved 12/27: Cr mildly elevated 1.6; maintain hydration. Will check Vanco trough at rehab and hold Vanco as needed. 12/21; will continue to monitor 12/20-12/21: BUN/Cr WNL Continue to monitor CHF exacerbation; acute on chronic with diastolic and systolic dysfunction 12/20-12/27: Patient stable Psychosis/Delirium Haldol) 0.5 mg IVP DAILY PRN Electrolyte Imbalance Hypokalemia, K 3.5 - KCl 40 PO Prophylaxis Pepcid) 20 mg IVP DAILY [facility] Novolog) 0 unit SC Q6H [facility] Hexavitamin) 1 tab PO DAILY [facility] SCD[facility]
[2017-12-27 09:03] VITALS: PULSE 56
[2017-12-27 09:04] LABS: ALB/GLOB RATIO 0.9 (1.0-2.1); CALCIUM 8.5 mg/dl (8.6-10.4); MAGNESIUM 2.1 mg/dL (1.6-2.3)
[2017-12-27] MEDS: Multiple Vitamins Tab PO SCH (10:17)
--- NOTE | 2017-12-27 10:46 | PN ---
DATE: 12/20/2017. The patient is improving. Potassium corrected. Appeared to be very weak, supportive care. Adrianne Stanley MD
[2017-12-27 14:41] VITALS: BP 106/61; O2SAT 97
== END 2017-12-27 13:50 | disposition home or self-care (01) | DRG 871 ==
LOC: C.ER 16:24 → C.9E 18:39 → C.6T 19:15 → C.9E 19:33 → C.6T 19:48 → C.9I 12-01 10:33 → C.5S 12-20 16:44
PROVIDERS: ADMIT Internal Medicine Pulmonary Disease; ATTEND Internal Medicine Pulmonary Disease
PROC: 05HM33Z Insertion of Infusion Device into Right Internal Jugular Vein, Percutaneous Approach (ICD-10-PCS; 2017-12-02)
PROC: 05HN33Z Insertion of Infusion Device into Left Internal Jugular Vein, Percutaneous Approach (ICD-10-PCS; 2017-12-06)
PROC: 5A1945Z Respiratory Ventilation, 24-96 Consecutive Hours (ICD-10-PCS; 2017-12-11)
PROC: 0BH17EZ Insertion of Endotracheal Airway into Trachea, Via Natural or Artificial Opening (ICD-10-PCS; 2017-12-11)
PROC: 5A09557 Assistance with Respiratory Ventilation, Greater than 96 Consecutive Hours, Continuous Positive Airway Pressure (ICD-10-PCS; principal; 2017-12-13)
DX: A41.02 Sepsis due to Methicillin resistant Staphylococcus aureus (principal); J18.9 Pneumonia, unspecified organism; J96.01 Acute respiratory failure with hypoxia; I50.43 Acute on chronic combined systolic (congestive) and diastolic (congestive) heart failure; N17.9 Acute kidney failure, unspecified; I11.0 Hypertensive heart disease with heart failure; I69.954 Hemiplegia and hemiparesis following unspecified cerebrovascular disease affecting left non-dominant side; D64.9 Anemia, unspecified; I46.9 Cardiac arrest, cause unspecified; J44.0 Chronic obstructive pulmonary disease with (acute) lower respiratory infection; E87.1 Hypo-osmolality and hyponatremia; R65.20 Severe sepsis without septic shock; N40.0 Benign prostatic hyperplasia without lower urinary tract symptoms; Z74.01 Bed confinement status; Z87.891 Personal history of nicotine dependence; Z88.6 Allergy status to analgesic agent